=== PATIENT | female | born 2000 | race Caucasian/White ===

== ENCOUNTER 2021-04-29 20:37 | Emergency (ER) | payer OTHER, SELFPAY ==
--- OUTSIDE RECORDS SUMMARY | 2021-04-29 20:39 | XMS REPORT | Continuity of Care Document ---
:2000 Author Organization [facility] t Address [address] [place] [address] Care Team Providers Name Role Phone Unavailable Unavailable Unavailable Payers Payer Name Policy Type Policy Number Effective Date Expiration Date S ource Problems This patient has no known problems. Allergies, Adverse Reactions, Alerts Allergy Allergy Status Severity Reaction(s) Onset Inactive Treating Comm ents Source Name Type Date Date Clinician No Known DA Active U 2015-02 [facility] All[facility]ie 04-22 [facility] 00:00: d 00 [facility] Medications This patient has no known medications. Procedures This patient has no known procedures. Results Test Description Test Time Test Comments Results Result Comments Source HCG POC 2018-06-13 19:38:00 Test Item Value Reference Range Interpretation Comme nts HCG POC <5.0 0-4.9 N Results of (test IU/L 5.0-25.0 IU/L a re indeterminate and do not ruleout . Because code = HCG values doub le approximately every48 hours in a normal , HCGPOC) patients with l ow levels ofHCG should be resampled and retested after 48 hours toconf irm . 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 Comparison: None Findings: The heart and mediastinum are not remarkable. Costophrenic angles are clear. Lungs are clear. Bone is unremarkable for age. Impression: 1. No radiographic evidence of acute cardiopulmonary disease. at 1829 Reported and signed by: Daljit Parada MD CC: Silvana Anthony NP Technologist: MITZI PERRY Trnjessica Date/Time/By: 06/13/2018 (1828) : By: [email or web address] PAGE 1 Signed Report FAX: Silvana Anthony [phone] [place]: St: PRE Name: BRENNON MONTEMAYOR : 2000 Age/S: 17/F [address] Unit #: [id number] Loc: [place] [address] Phys: Mariah AnthonySilvana Maureen NP Acct: [id number] Dis Date: Status: PRE ER PHONE #: [phone] Exam Date: 06/13/2018 1818 FAX #: [phone] Reason: sob EXAMS: CPT CODE: [id number] XR CHEST 1 V 86537 <Continued> Orig Print D/T: S: 06/13/2018 (7502) PAGE 2 Signed Report- XR ANKLE 3 + V RT 2018-05-15 17:13:00 [place]: St: REG Name: BRENNON MONTEMAYOR : 2000 Age/S: 17/F [address] Unit#: [id number] Loc: [place] [address] Phys: Juan David Luong Acct: [id number] Dis Date: Status: REG ER PHONE #: [phone] Exam Date: 05/15/2018 1648 FAX #: [phone] Reason: rolled ankle, pain, lateral aspect EXAMS: CPT CODE: [id number] XR ANKLE 3 + V RT [address]690 CLINICAL INFORMATION: Injury accident. Rolled ankle. Pain.. Dictation location: J9 COMPARISON: No prior. FINDINGS: Frontal, lateral and mortise views show moderate soft tissue swelling about the lateral malleolus. There is no acute fracture, destructive lesion or foreign body. An os trigonum is incidentally noted. There is an endosteal sclerosis at the fibular aspect of the distal tibia mostlikely an ossifying fibrous cortical defect or fibroma. IMPRESSION: 1. Soft tissue swelling, no acute fracture. 2. Benign-appearing distal tibial bone lesion. at 5093 Reported and signed by: Umair Knight MD CC:Technologist: ANGELICA CABRAL Trnscrd Date/Time/By: 05/15/2018 (7702) : By: ShellyAGV PAGE 1 Signed Report [place]: St: REG Name: BRENNON MONTEMAYOR [facility] : 2000 Age/S: 17/F [address] Unit #: [id number] Loc: [place] [address] Phys: Juan David Luong Acct: [id number] Dis Date: Status: REG ER PHONE #: [phone] Exam Date: 05/15/2018 1648 FAX #: [phone] Reason: rolled ankle, pain, lateral aspect EXAMS: CPT CODE: [id number] XR ANKLE 3 + V RT 95565 <Continued> Orig Print D/T: S: 05/15/2018 (6555) PAGE 2 Signed Rep ort
[2021-04-29 21:07] LABS: Urine Blood 3+ (Negative); Urine Glucose Negative (Negative); Urine Protein Negative (Negative); Urine Specific Gravity >=1.030 (1.005-1.030)
[2021-04-29 21:32] LABS: Absolute Lymphocytes (CBC) 1.9 K/uL (0.7-4.9); Hematocrit 42.6 % (36.0-45.0); MPV 8.2 fL (7.6-11.3); RBC Red Blood Cell Count 5.14 M/uL (3.86-4.86)
--- NOTE | 2021-04-29 22:03 | RAD REPORT ---
EXAM DESCRIPTION: US - Transvaginal OB - 04/29/2021 9:56 pm CLINICAL HISTORY: VAGINAL BLEEDING COMPARISON: No comparisons FINDINGS: No gestational sac is evident. Endometrium is mildly thickened measuring 9 mm. The maternal adnexa and ovaries are within normal limits. Normal Doppler blood flow was demonstrated to both ovaries. IMPRESSION: Thickened endometrial stripe without gestational sac visualized. In the setting of posit sydney HCG level, this could represent a of unknown location/early findings of IUP. Recommend follow-up pelvic sonogram in 7-10 days and serial HCG measurements.
[2021-04-29 22:05] LABS: Urine Specific Gravity/Preg >1.030 (1.005-1.030)
[2021-04-29 22:09] LABS: BUN Blood Urea Nitrogen 10 mg/dL (7-18); Bicarbonate 28 mmol/L (21-32); Glucose Level 60 mg/dL (74-106); HCG, Quantitative 5418 mIU/mL (1-3); Potassium 3.4 mmol/L (3.5-5.1); Sodium Level 140 mmol/L (136-145)
--- NOTE | 2021-04-30 00:09 | ER ---
Nurse's Notes [facility] Name: Tankia Lawrence Age: 20 yrs Sex: Female : 2000 Arrival Date: 04/29/2021 Time: 20:42 Bed 5 Private MD: Diagnosis: Threatened Presentation: 04/29 20:47 Chief complaint: Patient states: "im having heavy bleeding and abdominal pain/cramps ab2 and I am , so I thought I should get checked out." Pt states today was her first apt and they confirmed but could not find baby via ultrasound so they weren't sure if she was too early or if it was an ectopic . Pt states bleeding started after her apt. Coronavirus screen: Vaccine status:. Coronavirus screen: Vaccine status: Patient reports receiving the 2nd dose of the covid vaccine. Client denies travel out of the [place] in the last 14 days. At this time, the client does not indicate any symptoms associated with coronavirus-19. Ebola Screen: Patient negative for fever greater than or equal to 101.5 degrees Fahrenheit, and additional compatible Ebola Virus Disease symptoms Patient denies exposure to infectious person. Patient denies travel to an Ebola-affected area in the 21 days before illness onset. No symptoms or risks identified at this time. Initial Sepsis Screen: Does the patient meet any 2 criteria? No. Patient's initial sepsis screen is negative. Does the patient have a suspected source of infection? No. Patient's initial sepsis screen is negative. Risk Assessment: Do you want to hurt yourself or someone else? Patient reports no desire to harm self or others. Onset of symptoms is unknown. 20:47 Method Of Arrival: Ambulatory ab2 20:47 Acuity: SILVIA 3 ab2 Triage Assessment: 20:53 General: Appears in no apparent distress. uncomfortable, Behavior is calm, cooperative, ab2 appropriate for age. Pain: Complains of pain in suprapubic area, right lower quadrant and left lower quadrant Pain radiates to back Quality of pain is described as crampy. : Reports vaginal bleeding that is bright red, with clots, heavy flow. 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 - Social history:: Smoking status: Patient denies any tobacco usage or history of. Screenin/08 00:23 Abuse screen: Denies threats or abuse. Nutritional screening: No deficits noted. al4 Tuberculosis screening: No symptoms or risk factors identified. Fall Risk No fall in past 12 months (0 pts). IV access (20 points). Ambulatory Aid- None/Bed Rest/Nurse Assist (0 pts). Gait- Normal/Bed Rest/Wheelchair (0 pts) Mental Status- Oriented to own ability (0 pts). Total Huynh Fall Scale indicates No Risk (0-24 pts). Assessment: 04/29 21:30 General: Appears in no apparent distress. comfortable, Behavior is calm, cooperative, al4 patient states she has been having vaginal bleeding and abdominal cramping . Pain: Complains of pain in abdomen. Neuro: Level of Consciousness is awake, alert, obeys commands, Oriented to person, place, time, situation. Cardiovascular: Capillary refill < 3 seconds Patient's skin is warm and dry. Respiratory: Airway is patent Respiratory effort is even, unlabored, Respiratory pattern is regular, symmetrical. Musculoskeletal: Range of motion: intact in all extremities. 22:00 Obstetrical Assessment: General assessment: awake and alert, skin warm and dry, al4 respirations even and unlabored, Patient reports Abdominal pain, back pain. 04/30 00:38 Reassessment: Discharge instructions, paper work, and follow up instructions given by alJohn Paul Garcia RN. Vital Signs: 04/29 20:47 BP 134 / 68; Pulse 82; Resp 16; Temp 98.8(TE); Pulse Ox 100% on R/A; Weight 52.16 kg; ab2 Height 5 ft. 1 in. (154.94 cm); Pain 3/10; 04/30 00:21 BP 114 / 71; Pulse 71; Resp 16; Pulse Ox 99% on R/A; al4 04/29 20:47 Body Mass Index 21.73 (52.16 kg, 154.94 cm) ab2 Vitals: 00:29 Heart Tones not applicable at this time. clarified with provider. al4 ED Course: 04/29 20:42 Patient arrived in ED. es 20:51 Triage completed. ab2 20:53 Arm band placed on right wrist. ab2 20:57 Ishaan Enciso NP is PHCP. pm1 20:57 Rob Khan MD is Attending Physician. pm1 21:18 Inserted saline lock: 20 gauge in right antecubital area, using aseptic technique. al4 Blood collected. 21:35 CBC with Diff Sent. al4 21:35 Basic Metabolic Panel Sent. al4 21:35 Abo/rh Typing Sent. al4 21:56 US Transvaginal Ob In Process Unspecified. EDMS 04/30 00:23 Bed in low position. Call light in reach. Side rails up X 1. al4 00:28 Kervin Thomas is Primary Nurse. al4 00:31 No provider procedures requiring assistance completed. al4 00:38 IV discontinued, intact, bleeding controlled, No redness/swelling at site. Pressure al4 dressing applied, by BASIM Garcia. Administered Medications: No medications were administered Point of Care Testing: Urine : 00:40 hCG Reading: Positive; Control Reading: Positive; al4 00:40 done by BASIM Garcia al4 Outcome: 00:08 Discharge ordered by . pm1 00:37 Discharged to home ambulatory. al4 00:37 Condition: stable 00:37 Discharge instructions given to patient, Instructed on discharge instructions, follow up and referral plans. Demonstrated understanding of instructions, follow-up care. 00:40 Patient left the ED. al4 Signatures: Dispatcher [employer] [facility] Brittani Adan Ishaan Enciso NP EXTRAS CASTING DIRECTOR pm1 Kervin Thomas al4 Kervin Mesa ab2 Corrections: (The following items were deleted from the chart) 04/29 20:53 20:47 Chief complaint: Patient states: "im having heavy bleeding and I am , so ab2 I thought I should get checked out." Pt states today was her first apt and they confirmed but could not find baby via ultrasound so they weren't sure if she was too early or if it was an ectopic . Pt states bleeding started after her apt. ab2 04/30 00:25 00:21 Pulse 71bpm; Resp 16bpm; Pulse Ox 99% RA; al4 al4 00:30 00:23 Fall Risk None identified. al4 al4 00:40 00:39 Urine : hCG=Positive, Control=Positive. al4 al4 00:49 03/07 21:30 General: Appears in no apparent distress. comfortable, Behavior is calm, al4 cooperative, al4
--- NOTE | 2021-04-30 00:09 | EDPHYS ---
Physician Documentation [facility] Name: Tanika Lawrence Age: 20 yrs Sex: Female : 2000 Arrival Date: 04/29/2021 Time: 20:42 Bed 5 Private MD: ED Physician Rob Khan HPI: 04/29 21:14 This 20 yrs old Female presents to ER via Ambulatory with complaints of Vaginal pm1 Bleeding, + Preg <12wks. 21:14 The patient presents to the emergency department with vaginal bleeding, that is light, pm1 reports using 0 pads or tampons per day. The estimated gestational age is 5 weeks. course: care: at a clinic, Ultrasound: the patient had an ultrasound, on April 29, 2021. Previous pregnancies: the patient has never been . Associated signs and symptoms: Pertinent positives: Abdominal cramping and right flank pain, Pertinent negatives: dysuria, fever. The patient has not experienced similar symptoms in the past. The patient has been recently seen by a physician: an floodplain manager specialist. Patient presents to the ER with complaints of light vaginal bleeding onset after ultrasound today at her first OB visit at the clinic. Patient reports right-sided pelvic cramping and right flank cramping with her vaginal bleeding. She reports that she might be 5 weeks in the ultrasound was unable to identify a IUP. 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 - Social history:: Smoking status: Patient denies any tobacco usage or history of. ROS: 21:14 Constitutional: Negative for fever, chills, and weight loss, Cardiovascular: Negative pm1 for chest pain, palpitations, and edema, Respiratory: Negative for shortness of breath, cough, wheezing, and pleuritic chest pain, Abdomen/GI: Negative for abdominal pain, nausea, vomiting, diarrhea, and constipation, Back: Negative for injury and pain, MS/Extremity: Negative for injury and deformity, Skin: Negative for injury, rash, and discoloration. 21:14 Neuro: Negative for headache, weakness, numbness, tingling, and seizure. 21:14 : Positive for vaginal bleeding, Negative for urinary symptoms. 21:14 All other systems are negative. Exam: 21:14 Constitutional: This is a well developed, well nourished patient who is awake, alert, pm1 and in no acute distress. Head/Face: Normocephalic, atraumatic. 21:14 Skin: Warm, dry with normal turgor. Normal color with no rashes, no lesions, and no evidence of cellulitis. MS/ Extremity: Pulses equal, no cyanosis. Neurovascular intact. Full, normal range of motion. 21:14 Eyes: Exam is negative for acute changes, Extraocular movements: no acute changes, Conjunctiva: no acute changes, no injection. 21:14 ENT: Exam is negative for acute changes, Mouth: no acute changes, Lips: normal, moist, Oral mucosa: normal, pink and intact, moist. 21:14 Cardiovascular: Exam negative for acute changes, Rate: normal, Rhythm: regular, Pulses: no pulse deficits are appreciated, Heart sounds: normal. 21:14 Respiratory: Exam negative for acute changes, respiratory distress, shortness of breath, Breath sounds: are clear throughout. 21:14 Abdomen/GI: Exam negative for acute changes, Inspection: abdomen appears normal, Palpation: abdomen is soft and non-tender, in all quadrants. 21:14 Back: Exam negative for acute changes, pain, is absent, CVA tenderness, is absent. 21:14 Neuro: Exam negative for acute changes, Orientation: is normal, Mentation: is normal, Motor: is normal, moves all fours. Vital Signs: 20:47 BP 134 / 68; Pulse 82; Resp 16; Temp 98.8(TE); Pulse Ox 100% on R/A; Weight 52.16 kg; ab2 Height 5 ft. 1 in. (154.94 cm); Pain 05/02; 04/30 00:21 BP 114 / 71; Pulse 71; Resp 16; Pulse Ox 99% on R/A; al4 04/29 20:47 Body Mass Index 21.73 (52.16 kg, 154.94 cm) ab2 MDM: 04/29 20:57 Patient medically screened. pm1 21:23 Data reviewed: vital signs. Data interpreted: Pulse oximetry: on room air is 100 %. pm1 Interpretation: normal. 23:29 Physician consultation: Eric Rivas MD was called at 23:17, was contacted at 23:29, pm1 regarding consult, patient's condition, Recommends discussion with the patient for two options: 1. administration of methotrexate or 2. repeat beta HCG and ultrasound on . Patient does not sound that she is in imminent danger of rupture based on physical examination, amount of bleeding, ultrasound reading without free fluid. 04/30 00:02 ED course: Discussed options presented by Dr. Rivas and the patient does not want to pm1 have methotrexate. She would like to get repeat beta HCG and ultrasound on as recommended by Dr. Rivas. Reexamined the patient and she is not having any current abdominal tenderness. 04/29 20:57 Order name: Abo/rh Typing; Complete Time: 23:10 pm1 04/29 20:57 Order name: Basic Metabolic Panel; Complete Time: 22:18 pm1 04/29 20:57 Order name: CBC with Diff; Complete Time: 22:18 pm1 04/29 20:57 Order name: Quantitative Hcg; Complete Time: 22:18 pm1 04/29 21:07 Order name: Urine Dipstick-Ancillary; Complete Time: 21:13 EDMS 04/29 21:08 Order name: Urine --Ancillary (enter results); Complete Time: 22:18 ds4 04/29 20:57 Order name: IV Saline Lock; Complete Time: 21:35 pm1 04/29 20:57 Order name: Labs collected and sent; Complete Time: 21:35 pm1 04/29 20:57 Order name: NPO; Complete Time: 22:48 pm1 04/29 20:57 Order name: Urine Dipstick-Ancillary (obtain specimen); Complete Time: 21:10 pm1 04/29 20:57 Order name: Urine Test (obtain specimen); Complete Time: 21:10 pm1 04/29 21:14 Order name: US Transvaginal Ob; Complete Time: 22:18 pm1 Administered Medications: No medications were administered Point of Care Testing: Urine : 00:40 hCG Reading: Positive; Control Reading: Positive; al4 00:40 done by BASIM Garcia al4 Disposition: 04:08 Co-signature as Attending Physician, Rob Khan MD I agree with the assessment and kdr plan of care. Disposition Summary: 04/30/21 00:08 Discharge Ordered Location: Home pm1 Problem: new pm1 Symptoms: have improved pm1 Condition: Stable pm1 Diagnosis - Threatened pm1 Followup: pm1 - With: Emergency Department - When: 48 Hours - Reason: Repeat Beta-HCG (48 Hours), Repeat ultrasound Discharge Instructions: - Discharge Summary Sheet pm1 - Threatened Miscarriage pm1 Forms: - Medication Reconciliation Form pm1 - Thank You Letter pm1 - Antibiotic Education pm1 - Family Work Release ds4 - Prescription Opioid Use pm1 Signatures: Dispatcher [employer] EDMS Rob Khan MD MD kdr Ishaan Enciso, LUPIS BODY FITTER pm1 Kervin Mesa ab2
[2021-04-30 01:14] VITALS: TEMP 98.8
[2021-04-30 01:16] VITALS: BP 114/71; O2SAT 99
== END 2021-04-30 00:40 | disposition home or self-care (01) ==
LOC: ER 20:37
DX: O20.0 Threatened abortion (principal); Z3A.01 Less than 8 weeks gestation of pregnancy
CPT/HCPCS: 36415; 76817; 80048; 81003; 81025; 84702; 85025; 86900; 86901; 99284

== ENCOUNTER 2021-11-06 06:29 | Emergency (ER) | payer OTHER ==
--- OUTSIDE RECORDS SUMMARY | 2021-11-06 06:33 | XMS REPORT | Continuity of Care Document ---
:2000 Author Organization [facility] t Address [address] [place] [address] Care Team Providers Name Role Phone LORI SIMMS Primary Care Physician Unavailable LORI SIMMS Attending Clinician Unavailable Lori Mooney Attending Clinician [phone] CRISPIN STEPHEN Attending Clinician Unavailable CRISPIN STEPHEN Attending Clinician Unavailable 1, [facility] Us Room Attending Clinician Unavailable Joey Silva MD Attending Clinician Rosalia Purdy APN Attending Clinician RIKA WARNER Attending Clinician Unavailable Risk, Luv-Ugrxf-Vi/High Attending Clinician Unavailable Rika Joshi Attending Clinician Payers Payer Name Policy Type Policy Number Effective Date Expiration Date S chucho [facility] [id number] 2021 00:00:00 Problems Condition Condition Condition Status Onset Resolution Last Treating Co mments Source Name Details Category Date Date Treatment Clinician Date Seizure Seizure Disease Active Univers disorder disorder 8-05 ity of during during 00:00: [place] 00 Medi vipin in second in second Bran ch trimester trimester GBS (group GBS (group Disease Active Overview : Univers B B 7-14 Formattin ity of streptococ streptococ 00:00: g of this [place] cus) UTI cus) UTI 00 note Medica l complicati complicati might be Branch ng ng different from the original. 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 Reports was being screened for a disorder, but no official dx about 5 months agoRecord s received pt was seen for easy bruising it was recommend ed that pt be evaluated for rheumatol ogical/au toimmune issues History of History of Disease Active Overview : Univers seizure seizure 09-02 Formattin ity o f 00:00: g of this [place] 00 note Medical might be Branch different from the original. Reports last episode was 2years ago Tobacco Tobacco Disease Active Overview: Univ ers use in use in 09-02 Formattin ity of 00:00: g of this [place] 00 note Medical might be Branch different from the original. Reports quit Months ago Allergies, Adverse Reactions, Alerts Allergy Allergy Status Severity Reaction(s) Onset Inactive Treating Comm ents Source Name Type Date Date Clinician No Known DA Active U 2015-02 [facility] Allergie 2-28 [facility] d [facility] NO KNOWN Drug Active Univers ALLERGIE Class ity of S [facility] Social History Social Habit Start Date Stop Date Quantity Comments Source ASSERTION 2021-08-09 University of 00:00:00 [facility] Branch History of Cigarette Smoker Universi ty of tobacco use [facility] Exposure to 2021-10-25 2021-11-04 Not sure University of SARS-CoV-2 00:00:00 13:09:00 [facility] ([facility] Branch Alcohol intake 2021-11-04 2021-11-04 Lifetime University of 00:00:00 00:00:00 non-drinker [place] Medical (finding) Branch Tobacco use and 2021-09-02 2021-09-02 Smokeless tobacco Un iversity of exposure 00:00:00 00:00:00 non-user [facility] Sex Assigned At [birth year] Universit y of 00:00:00 00:00:00 [facility] Smoking Status Start Date Stop Date Source Ex-smoker 2021-09-02 00:00:00 2021-09-02 [facility] Medications Ordered Filled Start Stop Current Ordering Indication Dosage Frequency Signature Comments Components Source Medication Medication Date Date Medication? Clinician (SIG) Name Name montelukast 2021- Yes [id number] 10mg Take 1 Univers 10 mg 10-24 103 tablet by ity of tablet 00:00: 05:59 mouth [place] 00 :00 every Medical evening Branch for 90 days. montelukast 2021- Yes [id number] 10mg Take 1 Univers 10 mg 10-24 103 tablet by ity of tablet 00:00: 05:59 mouth [place] 00 :00 every Medical evening Branch for 90 days. montelukast 2021- Yes [id number] 10mg Take 1 Univers 10 mg 10-24 103 tablet by ity of tablet 00:00: 05:59 mouth [place] 00 :00 every Medical evening Branch for 90 days. montelukast 2021- Yes [id number] 10mg Take 1 Univers 10 mg 10-24 103 tablet by ity of tablet 00:00: 05:59 mouth [place] 00 :00 every Medical evening Branch for 90 days. montelukast 2021- Yes [id number] 10mg Take 1 Univers 10 mg 10-24 103 tablet by ity of tablet 00:00: 05:59 mouth [place] 00 :00 every Medical evening Branch for 90 days. PNV 67-iron Yes [id number] 1{each} Take 1 Univers ps-folate 8-26 Each by ity of no.1-dha 00:00: mouth [place] (VITAFOL 00 daily. Medical ULTRA) 29 Branch mg iron- 1 mg-200 mg Cap PNV 67-iron 2021-0 Yes [id number] 1{each} Take 1 Univers ps-folate 8-26 Each by ity of no.1-dha 00:00: mouth [place] (VITAFOL 00 daily. Medical ULTRA) 29 Branch mg iron- 1 mg-200 mg Cap PNV 67-iron 2021-0 Yes [id number] 1{each} Take 1 Univers ps-folate 8-26 Each by ity of no.1-dha 00:00: mouth [place] (VITAFOL 00 daily. Medical ULTRA) 29 Branch mg iron- 1 mg-200 mg Cap PNV 67-iron 2021-0 Yes [id number] 1{each} Take 1 Univers ps-folate 8-26 Each by ity of no.1-dha 00:00: mouth [place] (VITAFOL 00 daily. Medical ULTRA) 29 Branch mg iron- 1 mg-200 mg Cap PNV 67-iron 2021-0 Yes [id number] 1{each} Take 1 Univers ps-folate 8-26 Each by ity of no.1-dha 00:00: mouth [place] (VITAFOL 00 daily. Medical ULTRA) 29 Branch mg iron- 1 mg-200 mg Cap PNV 67-iron 2021-0 Yes [id number] 1{each} Take 1 Univers ps-folate 8-26 Each by ity of no.1-dha 00:00: mouth [place] (VITAFOL 00 daily. Medical ULTRA) 29 Branch mg iron- 1 mg-200 mg Cap Budesonide 2021-0 Yes [id number] 1{puff} Inhale 1 Univers 90 8-08 103 Puff in ity of mcg/actuati 00:00: the [place] on aerosol 00 morning Medica l powder and 1 Puff Branch in the evening. Budesonide 2021-0 Yes [id number] 1{puff} Inhale 1 Univers 90 8-08 103 Puff in ity of mcg/actuati 00:00: the [place] on aerosol 00 morning Medica l powder and 1 Puff Branch in the evening. Budesonide 2021-0 Yes [id number] 1{puff} Inhale 1 Univers 90 8-08 103 Puff in ity of mcg/actuati 00:00: the [place] on aerosol 00 morning Medica l powder and 1 Puff Branch in the evening. Budesonide Yes [id number] 1{puff} Inhale 1 Univers 90 8-08 103 Puff in ity of mcg/actuati 00:00: the [place] on aerosol 00 morning Medica l powder and 1 Puff Branch in the evening. Budesonide Yes [id number] 1{puff} Inhale 1 Univers 90 8-08 103 Puff in ity of mcg/actuati 00:00: the [place] on aerosol 00 morning Medica l powder and 1 Puff Branch in the evening. Budesonide Yes [id number] 1{puff} Inhale 1 Univers 90 8-08 103 Puff in ity of mcg/actuati 00:00: the [place] on aerosol 00 morning Medica l powder and 1 Puff Branch in the evening. Yes Take by [employer] s vit 7-11 mouth. ity of no.124/iron 15:57: [place] /folic 30 Medical ( Branch VITAMIN ORAL) Yes Take by [employer] s vit 7-11 mouth. ity of no.124/iron 15:57: [place] /folic 30 Medical ( Branch VITAMIN ORAL) Yes Take by [employer] s vit 7-11 mouth. ity of no.124/iron 15:57: [place] /folic 30 Medical ( Branch VITAMIN ORAL) Yes Take by [employer] s vit 7-11 mouth. ity of no.124/iron 15:57: [place] /folic 30 Medical ( Branch VITAMIN ORAL) Yes Take by [employer] s vit 7-11 mouth. ity of no.124/iron 15:57: [place] /folic 30 Medical ( Branch VITAMIN ORAL) Yes Take by [employer] s vit 7-11 mouth. ity of no.124/iron 15:57: [place] /folic 30 Medical ( Branch VITAMIN ORAL) Vital Signs Vital Name Observation Time Observation Value Comments Source Systolic blood 2021-11-04 18:16:00 119 mm[Hg] Taty sity of pressure [facility] Diastolic blood 2021-11-04 18:16:00 67 mm[Hg] Unive rsity of pressure [facility] Heart rate 2021-11-04 18:16:00 82 /min [facility] [place] [facility] Body temperature 2021-11-04 18:16:00 36.89 Marycruz Univ ersity of [place] [facility] Respiratory rate 2021-11-04 18:16:00 18 /min Univ ersity of [place] [facility] [place] Body height 2021-11-04 18:16:00 157.5 cm [facility] ty [facility] [place] [facility] [place] Body weight 2021-11-04 18:16:00 56.246 kg [facility] [place] [facility] BMI 2021-11-04 18:16:00 22.68 kg/m2 [facility] [place] [facility] Systolic blood 2021-10-24 20:30:00 105 mm[Hg] Univer sity of pressure [facility] Diastolic blood 2021-10-24 20:30:00 69 mm[Hg] Unive rsity of [facility] Heart rate 2021-10-24 20:30:00 81 /min Universi ty of [facility] Body temperature 2021-10-24 20:30:00 37.22 Marycruz [facility] Respiratory rate 2021-10-24 20:30:00 18 /min Univ ersity of [facility] Body height 2021-10-24 20:30:00 157.5 cm [facility] ty [facility] [place] [facility] [place] [place] Body weight 2021-10-24 20:30:00 55.747 kg [facility]i ty [facility] [place] [facility] [place] BMI 2021-10-24 20:30:00 22.48 kg/m2 Universi ty of [facility] Procedures Procedure Date / Time Performed Performing Clinician Sourc e POCT URINALYSIS 2021-11-04 18:17:[address] [facility] POCT URINALYSIS 2021-10-24 21:13:[address] [facility] Encounters Start End Encounter Admission Attending Care Care Encounter Source Date/Time Date/Time Type Type Clinicians Facility Department ID 2021-12-13 2021-12-13 Outpatient R [facility] [id number] Univers 13:00:00 13:00:00 [id number] ity of [facility] 2021-12-13 2021-12-13 Outpatient P [facility] [id number] Univers 13:00:00 13:00:[address] [facility] 2021-12-02 2021-12-02 [id number] Univers 11:00:00 11:00:00 LORI [id number] ity o [facility] 2021-11-04 2021-11-04 Outpatient R DEMI, [facility] [id number] Univers 12:45:00 13:34:38 LORI ity o f [facility] 2021-11-04 2021-11-04 Routine Иванfaby, [facility] [id number] Univers 12:45:00 13:34:38 Lori C PAINT TESTER [id number] ity of Visit REGIONAL [id number] Jose as MATERNAL [id number] [facility] ical & CHILD [address] [place] [address] 2021-10-29 2021-10-29 Abstract Demi [facility] [id number] Univers 00:00:00 00:00:00 Lori Brizuela PAINT TESTER [id number] ity of REGIONAL 4.2.7.2.686 Jose as MATERNAL [phone] [facility] [address] [place] [address] 2021-10-25 2021-10-25 Outpatient R [facility] [id number] Univers 15:00:00 15:00:00 [id number] [facility] 2021-10-25 2021-10-25 Outpatient R CRISPIN STEPHEN [facility] [id number] Univers 15:00:00 15:00:00 CRISPIN STEPHEN [facility] 2021-10-25 2021-10-25 [facility]rentice [facility] 1.2. [id number] Univers 14:00:00 14:45:00 Visit Joey Silva PAINT TESTER [id number] 0 ity of REGIONAL [id number] Jose as MATERNAL [id number] [facility] ical & CHILD [address] [place] [address] 2021-10-25 2021-10-25 Basim Purdy [facility] [id number] Univers 00:00:00 00:00:00 Management Rosalia PAINT TESTER [id number] ity of REGIONAL [id number] Jose as MATERNAL [phone] [facility] ical & CHILD 124 [facility] 2021-10-24 2021-10-24 Outpatient R STELLA [facility] [id number] Univers 15:15:00 16:00:28 RIKA [facility] 2021-10-24 2021-10-24 Routine Risk, Kyl-Mcwvs-Ov/High [facility] 1. [id number] [id number] Univers 15:15:00 16:00:28 Rika Warner PAINT TESTER [id number] ity of Visit REGIONAL 4.2.7.2.686 Jose as MATERNAL [id number] [address] 2021-10-24 2021-10-24 Outpatient R [facility] [id number] Univers 15:15:00 15:15:00 [id number] [facility] 2021-10-17 2021-10-17 [facility] [id number] Univers 00:00:00 00:00:00 Lori Brizuela PAINT TESTER [id number] ity of [facility] [id number] Jose as MATERNAL [id number] [facility] & [address] Results Test Description Test Time Test Comments Results Result Comments Source POCT URINALYSIS W SPECIFIC GRAVITY 2021-11-04 18:17:00 Test Item Value Reference Range Interpretation Comme nts POCT U SP GRAV (test code = 3255) . 1.005-1.025 POCT PH U (test code = 3254) . 5-8 POCT U LEUK EST (test code = 3263) . Negative - Negative POCT U NIT (test code = 3262) . Negative - Negative POCT U PROT (test code = 3259) Trace Negative - Negative POCT U GLU (test code = 3256) Neg Negative - Negative POCT U KETONE (test code = 3258) . Negative - Negative POCT U UROBILI (test code = 3260) . 0.2-1 POCT U BILI (test code = 3261) . Negative - Negative POCT U BLD (test code = 3257) . Negative - Negative POCT U COLOR (test code = 3266) . POCT U APPEAR (test code = 3267) [facility] [id number] 21:13:00 Test Item Value Reference Range Interpretation Comments POCT U SP GRAV (test code = 3255) . 1.005-1.025 POCT PH U (test code = 3254) . 5-8 POCT U LEUK EST (test code = 3263) . Negative - Negative POCT U NIT (test code = 3262) . Negative - Negative POCT U PROT (test code = 3259) trace Negative - Negative POCT U GLU (test code = 3256) neg Negative - Negative POCT U KETONE (test code = 3258) . Negative - Negative POCT U UROBILI (test code = 3260) . 0.2-1 POCT U BILI (test code = 3261) . Negative - Negative POCT U BLD (test code = 3257) . Negative - Negative POCT U COLOR (test code = 3266) . POCT U APPEAR (test code = 3267) . [facility] [id number] 19:38:00 Test Item Value Reference Range Interpretation Comments HCG POC (test code <5.0 IU/L 0-4.9 N = HCGPOC) Result s of 5.0-25.0 IU/L a re indeterminate a nd do not ruleout pregnan cy. Because HCG values doub le approximately e very48 hours in a norm al , adalgisa ents with low levels ofHC G should be resampled and r etested after 48 hours toconfirm . 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 Comparison: None Findings: The heart and mediastinum are not remarkable. Costophrenic anglesare clear. Lungs are clear. Bone is unremarkable for age. Impression: 1. No radiographic evidence of acute cardiopulmonary disease. at 1829 Reported and signed by: Daljit Parada MD CC: Silvana Anthony NP Technologist: MITZI PERRY Date/Time/By: 06/13/2018 (1828) : By: [email or web address] PAGE 1 Signed Report FAX: Silvana Anthony [phone] [place]: St: PRE Name: BRENNON MONTEMAYOR [facility] : 2000 Age/S: 17/F [address] Unit #: [id number] Loc: [place] [address] Phys: AnthonySilvana LUPIS Acct: [id number] Dis Date: Status: PRE ER PHONE #: [phone] Exam Date: 06/13/2018 1818 FAX #: [phone] Reason: sob EXAMS: CPT CODE: [id number] XR CHEST 1 V [id number] (Continued) Orig Print D/T: S: 06/13/2018 (1832) PAGE 2 Signed Report- XR ANKLE 3 + V [id number] 17:13:00 [place]: St: REG -- Name: BRENNON MONTEMAYOR [facility] : 2000 Age/S: 17/F [address] Unit #: [id number] Loc: [place] [address] Phys: Juan David Luong Acct: [id number] Dis Date: Status: REG ER PHONE #: [phone] Exam Date: 05/15/2018 1648 FAX #: [phone] Reason: rolled ankle, pain, lateral aspect EXAMS: CPT CODE: [id number] XR ANKLE 3 + V RT [id number] CLINICAL INFORMATION: Injury accident. Rolled ankle. Pain.. Dictation location: J9 COMPARISON: No prior. FINDINGS: Frontal, lateral and mortise viewsshow moderate soft tissue swelling about the lateral malleolus. There is no acute fracture, destructive lesion or foreign body. An os trigonum is incidentally noted. There is an endosteal sclerosis at the fibular aspect of the distal tibia most likely an ossifying fibrous cortical defect or fibroma. IMPRESSION: 1. Soft tissue swelling, no acute fracture. 2. Benign-appearing distal tibial bone lesion. at 1713 Reported and signed by: Umair Knight MD CC: Technologist: ANGELICA CABRAL Trnscrd Date/Time/By: 05/15/2018 (7820) : By: ShellyAGV PAGE 1 Signed Report [place]: St: REG Name: BRENNON MONTEMAYOR [facility] : 2000 Age/S: 17/F [address] Unit #: [id number] Loc: [place] [address] Phys: Juan David Luong Acct: [id number] Dis Date: Status: REG ER PHONE #: [phone] Exam Date: 05/15/2018 1641 FAX #: [phone] Reason: rolled ankle, pain, lateral aspect EXAMS: CPT CODE: [id number] XR ANKLE 3 + V RT [id number] (Continued) Orig Print D/T: S: 05/15/2018 (6473) PAGE 2 Signed Report
[2021-11-06] MEDS ORDERED: MORPHINE 2 MG/ML SYR ONE (07:38)
[2021-11-06] MEDS ORDERED: FAMOTIDINE 20 MG/2 ML VIAL IV ONE (07:39)
[2021-11-06 07:55] LABS: Urine Blood Negative (Negative); Urine Glucose Negative (Negative); Urine Protein Negative (Negative); Urine Specific Gravity 1.025 (1.005-1.030)
--- NOTE | 2021-11-06 07:56 | RAD REPORT ---
EXAM DESCRIPTION: US - Abdomen Exam Limited - 11/06/2021 7:42 am CLINICAL HISTORY: rule out cholecystitis COMPARISON: No comparisons FINDINGS: No gallstones, sludge or other abnormalities within the gallbladder lumen. There is no wal l thickening or pericholecystic fluid. No common duct stone or biliary tree dilatation identified. IMPRESSION: Normal gallbladder and biliary tree ultrasound.
--- NOTE | 2021-11-06 07:58 | RAD REPORT ---
EXAM DESCRIPTION: US - OB Limited - 11/06/2021 7:42 am CLINICAL HISTORY: ABD CRAMPING, COMPARISON: OB Limited dated 09/07/2021; Abdomen Exam Limited dated 11/06/2021 FINDINGS: Limited Ob ultrasound shows a single intrauterine gestation. Body and limb movements were observed. Heart rate is 147 BPM. Single femoral length measurement was obtained with estimated 15 wee k 2 day age. This closely approximates the LMP based age. Cervical canal is long and closed. Amniotic fluid volume is normal. Posterior positioned placenta shows no suspicious finding. IMPRESSION: Approximately 15 week single gestation with no significant or suspicious findings noted.
[2021-11-06 08:01] LABS: Absolute Lymphocytes (CBC) 1.7 K/uL (0.7-4.9); Hematocrit 35.2 % (36.0-45.0); Lymphocytes % 24.5 % (15.3-44.8); MCV 83.5 fL (80-100); MPV 8.4 fL (7.6-11.3); RBC Red Blood Cell Count 4.21 M/uL (3.86-4.86)
[2021-11-06 08:08] LABS: Albumin 2.8 g/dL (3.4-5.0); Bilirubin Total 0.2 mg/dL (0.2-1.0); Potassium 4.2 mmol/L (3.5-5.1); Protein, Total 6.2 g/dL (6.4-8.2)
[2021-11-06 08:13] LABS: Urine Mucus Slight /HPF (None Seen); Urine RBC <5 /HPF (None Seen)
--- NOTE | 2021-11-06 08:56 | ER ---
Nurse's Notes [facility] Name: Tanika Lawrence Age: 21 yrs Sex: Female : 2000 Arrival Date: 11/06/2021 Time: 06:33 Bed 8 Private MD: Diagnosis: Upper abdominal pain, unspecified;15 weeks gestation of Presentation: 11/06 07:05 Chief complaint: Patient states: Epigastric pain that began this morning around 0400. vg1 Pt states is approximately 15 weeks . Denies NVD; last BM was last night and "normal". Coronavirus screen: Vaccine status: Patient reports receiving the 2nd dose of the covid vaccine. Client denies travel out of the [place] in the last 14 days. Ebola Screen: Patient denies exposure to infectious person. Patient denies travel to an Ebola-affected area in the 21 days before illness onset. Initial Sepsis Screen: Does the patient meet any 2 criteria? No. Patient's initial sepsis screen is negative. Does the patient have a suspected source of infection? No. Patient's initial sepsis screen is negative. Risk Assessment: Do you want to hurt yourself or someone else? Patient reports no desire to harm self or others. Onset of symptoms was November 06, 2021. 07:05 Method Of Arrival: Ambulatory vg1 07:05 Acuity: SILVIA 3 vg1 Triage Assessment: 07:06 General: Appears in no apparent distress. uncomfortable, Behavior is. Pain: Complains vg1 of pain in epigastric area. GI: Abdomen is flat, Last BM was November 05, 2021. Patient currently denies diarrhea, nausea, vomiting. 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 - Social history:: Smoking status: Patient denies any tobacco usage or history of. - Family history:: not pertinent. - Hospitalizations: : No recent hospitalization is reported. Screenin:32 Abuse screen: Denies threats or abuse. Nutritional screening: No deficits noted. tw2 Tuberculosis screening: No symptoms or risk factors identified. Fall Risk None identified. Assessment: 07:32 Reassessment: US at bedside at this time. tw2 08:05 Reassessment: Patient appears in no apparent distress at this time. No changes from tw2 previously documented assessment. Patient and/or family updated on plan of care and expected duration. Pain level reassessed. Patient is alert, oriented x 3, equal unlabored respirations, skin warm/dry/pink. 08:41 Reassessment: Patient appears in no apparent distress at this time. Patient and/or tw2 family updated on plan of care and expected duration. Pain level reassessed. Patient is alert, oriented x 3, equal unlabored respirations, skin warm/dry/pink. provider notified. Patient states symptoms have not improved. 09:10 Reassessment: Patient appears in no apparent distress at this time. No changes from tw2 previously documented assessment. Patient and/or family updated on plan of care and expected duration. Pain level reassessed. Patient is alert, oriented x 3, equal unlabored respirations, skin warm/dry/pink. 09:38 GI: na na. tw2 Vital Signs: 07:05 BP 119 / 80; Pulse 77; Resp 16; Temp 98.8(TE); Pulse Ox 100% on R/A; Weight 55.79 kg; vg1 Height 4 ft. 11 in. (149.86 cm); Pain 6/10; 08:05 BP 121 / 72; Pulse 55; Resp 17; Pulse Ox 100% on R/A; tw2 08:41 Pain 7/10; tw2 09:10 BP 118 / 82; Pulse 83; Resp 17; Pulse Ox 100% on R/A; tw2 07:05 Body Mass Index 24.84 (55.79 kg, 149.86 cm) vg1 ED Course: 06:33 Patient arrived in ED. ja2 07:00 Robbie Scott MD is Attending Physician. rn 07:06 Triage completed. vg1 07:06 Arm band placed on. vg1 07:09 Wilma Esteves, BASIM is Primary Nurse. tw2 07:09 Bed in low position. Call light in reach. Pulse ox on. NIBP on. tw2 07:44 Abdomen Limited US In Process Unspecified. EDMS 07:44 US OB Limited In Process Unspecified. EDMS 07:45 Inserted saline lock: 20 gauge in right antecubital area, using aseptic technique. tw2 Blood collected. 09:38 No provider procedures requiring assistance completed. IV discontinued, intact, tw2 bleeding controlled, No redness/swelling at site. Pressure dressing applied. Administered Medications: 07:45 Drug: Pepcid (famotidine) 20 mg Route: IVP; Site: right antecubital; tw2 08:41 Follow up: Pain 7/10 Adult; Response: No adverse reaction; No change in condition; Pain tw2 is unchanged, physician notified 07:48 Not Given (Patient Refused; provider notified.): morphine 2 mg IVP once over 4 mins tw2 09:09 Drug: GI Cocktail without - (Maalox Suspension 30 ml, Lidocaine Liquid 2 % 15 tw2 ml) Route: PO; 09:10 Follow up: Response: No adverse reaction tw2 Medication: 07:33 VIS not applicable for this client. tw2 Outcome: 08:56 Discharge ordered by . rn 09:38 Discharged to home ambulatory. tw2 09:38 Condition: stable 09:38 Discharge instructions given to patient, Instructed on discharge instructions, follow up and referral plans. Demonstrated understanding of instructions, follow-up care. 09:38 Patient left the ED. tw2 Signatures: Dispatcher [employer] EDMS Robbie Scott MD MD rn Wise, Tara RN RN tw2 Victoria Montenegro RN RN 1 Sheela Lopez
--- NOTE | 2021-11-06 08:57 | EDPHYS ---
Physician Documentation [facility] Name: Tanika Lawrence Age: 21 yrs Sex: Female : 2000 Arrival Date: 11/06/2021 Time: 06:33 Bed 8 Private MD: ED Physician Robbie Scott HPI: 11/06 07:26 This 21 yrs old Female presents to ER via Ambulatory with complaints of Abdominal Pain. rn 07:26 The patient presents with abdominal pain in the epigastric area. Onset: The rn symptoms/episode began/occurred this morning. The symptoms do not radiate. Associated signs and symptoms: Pertinent negatives: nausea and vomiting, blood in stools, chest pain, fever, hematuria, shortness of breath, vaginal discharge. The symptoms are described as achy. Modifying factors: The symptoms are alleviated by nothing, the symptoms are aggravated by movement, touching the area. Severity of pain: At its worst the pain was moderate in the emergency department the pain is unchanged. The patient has not experienced similar symptoms in the past. The patient has not recently seen a physician. Pt reports upper abd pain that began this morning, is 15 weeks , no fever/chest pain/sob/vomiting. Never had this before. No vaginal bleeding or discharge. No trauma. . 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 - Social history:: Smoking status: Patient denies any tobacco usage or history of. - Family history:: not pertinent. - Hospitalizations: : No recent hospitalization is reported. ROS: 07:26 Constitutional: Negative for fever, chills, and weight loss, Eyes: Negative for injury, rn pain, redness, and discharge, Neck: Negative for injury, pain, and swelling, Cardiovascular: Negative for chest pain, palpitations, and edema, Respiratory: Negative for shortness of breath, cough, wheezing, and pleuritic chest pain, Abdomen/GI: + abd pain Back: Negative for injury and pain, : Negative for injury, bleeding, discharge, and swelling, MS/Extremity: Negative for injury and deformity, Skin: Negative for injury, rash, and discoloration, Neuro: Negative for headache, weakness, numbness, tingling, and seizure. Exam: 07:26 Constitutional: This is a well developed, well nourished patient who is awake, alert, rn and in no acute distress. Head/Face: Normocephalic, atraumatic. Eyes: Periorbital areas with no swelling, redness, or edema. Cardiovascular: Regular rate and rhythm. No pulse deficits. Respiratory: No increased work of breathing, no retractions or nasal flaring. Abdomen/GI: soft, + epigastric tenderness, no rebound, neg barreto Vital Signs: 07:05 BP 119 / 80; Pulse 77; Resp 16; Temp 98.8(TE); Pulse Ox 100% on R/A; Weight 55.79 kg; vg1 Height 4 ft. 11 in. (149.86 cm); Pain 6/10; 08:05 BP 121 / 72; Pulse 55; Resp 17; Pulse Ox 100% on R/A; tw2 08:41 Pain 7/10; tw2 09:10 BP 118 / 82; Pulse 83; Resp 17; Pulse Ox 100% on R/A; tw2 07:05 Body Mass Index 24.84 (55.79 kg, 149.86 cm) vg1 MDM: 07:00 Patient medically screened. rn 08:55 Differential diagnosis: cholecystitis, Cholelithiasis, gastritis, gastroesophageal rn reflux disease, non-specific abd pain, pancreatitis, Peptic Ulcer Disease. Data reviewed: vital signs, nurses notes, lab test result(s), radiologic studies, ultrasound, and as a result, I will discharge patient. Counseling: I had a detailed discussion with the patient and/or guardian regarding: the historical points, exam findings, and any diagnostic results supporting the discharge/admit diagnosis, lab results, radiology results, the need for outpatient follow up, to return to the emergency department if symptoms worsen or persist or if there are any questions or concerns that arise at home. Response to treatment: the patient's symptoms have mildly improved after treatment, and as a result, I will discharge patient. Special discussion: Based on the patient's Hx, exam, and Dx evaluation, there is no indication for emergent surgery or inpatient Tx. It is understood by the patient/guardian that if the Sx's persist or worsen they need to return immediately for re-evaluation. I discussed with the patient/guardian in detail that at this point there is no indication for admission to the hospital. It is understood, however, that if the symptoms persist or worsen the patient needs to return immediately for re-evaluation. Based on the history and exam findings, there is no indication for further emergent testing or inpatient evaluation. I discussed with the patient/guardian the need to see the pre coder for further evaluation of the symptoms. I discussed with the patient/guardian the need to see the OB Gyne specialist for further evaluation of the symptoms. 11/06 07:18 Order name: CBC with Diff; Complete Time: 08:08 rn 11/06 07:18 Order name: CMP; Complete Time: 08:19 rn 11/06 07:18 Order name: Lipase; Complete Time: 08:19 rn 11/06 07:18 Order name: Urine Microscopic Only; Complete Time: 08:19 rn 11/06 07:18 Order name: Abdomen Limited US; Complete Time: 08:08 rn 11/06 07:55 Order name: Urine Dipstick-Ancillary; Complete Time: 08:08 EDMS 11/06 07:18 Order name: IV Saline Lock; Complete Time: 07:48 rn 11/06 07:18 Order name: Labs collected and sent; Complete Time: 07:48 rn 11/06 07:18 Order name: Urine Dipstick-Ancillary (obtain specimen); Complete Time: 07:55 rn 11/06 07:18 Order name: US OB Limited; Complete Time: 08:08 rn Administered Medications: 07:45 Drug: Pepcid (famotidine) 20 mg Route: IVP; Site: right antecubital; tw2 08:41 Follow up: Pain 7/10 Adult; Response: No adverse reaction; No change in condition; Pain tw2 is unchanged, physician notified 07:48 Not Given (Patient Refused; provider notified.): morphine 2 mg IVP once over 4 mins tw2 09:09 Drug: GI Cocktail without - (Maalox Suspension 30 ml, Lidocaine Liquid 2 % 15 tw2 ml) Route: PO; 09:10 Follow up: Response: No adverse reaction tw2 Disposition Summary: 11/06/21 08:56 Discharge Ordered Location: Home rn Problem: new rn Symptoms: have improved rn Condition: Stable rn Diagnosis - Upper abdominal pain, unspecified rn - 15 weeks gestation of rn Followup: rn - With: Private Physician - When: As needed - Reason: Recheck today's complaints, Re-evaluation by your physician Discharge Instructions: - Discharge Summary Sheet rn - Abdominal Pain, Adult rn - Abdominal Pain During rn Forms: - Medication Reconciliation Form rn - Thank You Letter rn - Antibiotic rn med surg - Prescription Opioid Use rn - Work release form tw2 Signatures: Dispatcher [employer] Robbie Azul MD MD rn Wise, Tara, RN RN tw2 Victoria Montenegro RN RN vg1
[2021-11-06] MEDS ORDERED: MAGNES/ALUMIN/SIMET 30ML UCUP ONE (09:08)
[2021-11-06] MEDS ORDERED: LIDOCAINE VISCOUS 2% SOLN 15 ML UDC ONE (09:08)
[2021-11-07 00:23] VITALS: TEMP 98.8; O2SAT 100
[2021-11-07 00:35] VITALS: BP 118/82
== END 2021-11-06 09:38 | disposition home or self-care (01) ==
LOC: ER 06:29
DX: O26.892 Other specified pregnancy related conditions, second trimester (principal); O99.512 Diseases of the respiratory system complicating pregnancy, second trimester; J45.909 Unspecified asthma, uncomplicated; Z3A.15 15 weeks gestation of pregnancy
CPT/HCPCS: 85025; 36415; 83690; 80053; 76705; 76815; 96374; 99284; J2270; 81003; 81015

== ENCOUNTER 2022-05-03 17:06 | Emergency (ER) | payer OTHER ==
--- OUTSIDE RECORDS SUMMARY | 2022-05-03 17:16 | XMS REPORT | Continuity of Care Document ---
:2000 Author Organization [facility] t Address [address] [facility] [address] [place] [id number] Care Team Providers Name Role Phone Lian Mooney Primary Care Physician [phone] LIAN SIMMS Attending Clinician Unavailable Visit, Donte Nurse Attending Clinician Unavailable Lian Mooney Attending Clinician [phone] Chip Archuleta DO Attending Clinician LEROY LORENZANA Attending Clinician Unavailable Emilee Villarreal MD Attending Clinician [phone] Colby AMBROSE, Daquan Attending Clinician Ronen Presley MD Attending Clinician Malcolm STALLWORTH, Jose Cruz Camacho Attending Clinician Unavailable Provider, Donte Temp Attending Clinician Unavailable MADHURI OROZCO Attending Clinician Unavailable Madhuri Orozco MD Attending Clinician LIZETT WEI Attending Clinician Unavailable Lizett Wei MD Attending Clinician Astrid Barnett CNM Attending Clinician ASTRID BARNETT Attending Clinician Unavailable Ultrasound, [facility] Attending Clinician Unavailable Josesito Carrillo MD Attending Clinician JOSESITO CARRILLO Attending Clinician Unavailable JOSESITO CARRILLO Attending Clinician Unavailable Doctor Unassigned, [place] Attending Clinician Unavailable Lab, [facility] Attending Clinician Unavailable Crispin Campbell Attending Clinician CRISPIN SON Attending Clinician Unavailable 1, [facility] Attending Clinician Unavailable Ricardo AMBROSE, Joey Simmons Attending Clinician Rosalia Purdy APN Attending Clinician JOHNNY WARNER Attending Clinician Unavailable Risk, Mmq-Xdqyx-Wq/High Attending Clinician Unavailable Timmy WHJohnny RAWLS Attending Clinician Faculty, [facility] Attending Clinician Unavailable Vicki Gardner RN Attending Clinician Unavailable Lester Breen RN, Martha Attending Clinician Unavailable LIZETT WEI Admitting Clinician Unavailable Chip Archuleta DO Admitting Clinician MADHURI OROZCO Admitting Clinician Unavailable Madhuri Orozco MD Admitting Clinician Lizett Wei MD Admitting Clinician Payers Payer Name Policy Type Policy Number Effective Date Expiration Date [facility] STAR [id number] 2021 00:00:00 MEDICAID PENDING PENDING 2021 00:00:00 Problems Condition Condition Condition Status Onset Resolution Last Treating Co mments Source Name Details Category Date Date Treatment Clinician Date 38 weeks 38 weeks Disease Active Unive rs gestation gestation 3 ity of of of 00:00: [place] 00 Medi [facility] Branch Disease Active Univers growth growth 3 ity of restrictio restrictio 00:[place] 00 Medical antepartum antepartum Br anch Elevated Elevated Disease Active Unive rs blood blood 3 ity of pressure pressure 00:00: [place] affecting affecting 00 Medi vipin Bran ch in third in third trimester, trimester, antepartum antepartum Positive Positive Disease Active Unive rs GBS test GBS test 2-17 ity of 00:00: [place] [facility] Abnormal Abnormal Disease Active 2021-02 Unive rs maternal maternal 2-11 ity of glucose glucose 00:00: [place] tolerance, tolerance, 00 Me dical antepartum antepartum Br anch Anemia of Anemia of Disease Active 2021-02 Uni vers mother in mother in 2-11 ity of , , [place] antepartum antepartum 00 Me dical Branch Seizure Seizure Disease Active Univers disorder disorder 8-05 ity of during during 00:00: [place] 00 Medi vipin in second in second Bran ch trimester trimester GBS (group GBS (group Disease Active Overview : Univers B B 714 Formattin ity of streptococ streptococ 00:00: g of this [place] cus) UTI cus) UTI 00 note Medica l complicati complicati might be Branch ng ng different from the original. neg royal Supervisio Supervisio Disease Active U nivers n of n of 09-02 ity of high-risk high-risk [place] [address] 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 Reports last episode was 2years ago Tobacco Tobacco Disease Active Overview: Univ ers use in use in 09-02 Formattin ity of 00:00: g of this [place] note Medical might be Branch different from the original. Reports quit Months ago Allergies, Adverse Reactions, Alerts Allergy Allergy Status Severity Reaction(s) Onset Inactive Treating Comm ents Source Name Type Date Date Clinician No Known DA Active U 2015-02 [facility] NO KNOWN Drug Active Univers ALLERGIE Class ity of S [facility] Social History Social Habit Start Date Stop Date Quantity Comments Source ASSERTION 2021-08-09 [facility] 00:00:00 [facility] History of Cigarette Smoker Universi ty of tobacco use [facility] Exposure to 2022-04-22 2022-05-02 Not sure [facility] SARS-CoV-2 00:00:00 09:46:00 [facility] (event) [place] Alcohol intake 2022-04-28 2022-04-28 Lifetime [facility] 00:00:00 00:00:[address] [facility] (finding) [place] Tobacco use and 2021-09-02 2021-09-02 Smokeless tobacco Un iversity of exposure 00:00:00 00:00:00 non-user [facility] 2000 [facility] Smoking Status Start Date Stop Date Source Ex-smoker 2021-09-02 00:00:00 2021-09-02 00:00:00 [facility] Medications Ordered Filled Start Stop Current Ordering Indication Dosage Frequency Signature Comments Components Source Medication Medication Date Date Medication? Clinician (SIG) Name Name ibuprofen Yes 600mg 600 mg, Univ ers (IBU) 3-04 Oral, Q6H, ity of tablet 600 18:00: First dose [place] mg 00 (after Medical last Branch modificati on) on 04/26/22 at 1200, Until Discontinu ed, Routine ibuprofen No 600mg 600 mg, Uni vers (IBU) 3- 03-05 Oral, Q6H, ity of tablet 600 18:00: 07:02 First dose [place] mg 00 :59 (after Medical last Branch modificati on) on 04/26/22 at 1200, Until Discontinu ed, Routine simethicone Yes 160mg 160 mg, Un cheyan[place] (GAS RELIEF 3-04 Oral, ity of (SIMETHICON 15:00: PC+HS, [place] E)) 00 First dose Medical chewable (after Branch tablet 160 last mg modificati on) on 04/26/22 at 0900, Until Discontinu ed, Routine simethicone 2022-0 2023- No 160mg 160 mg, U nivers (GAS RELIEF 3-04 03-05 Oral, ity of (SIMETHICON 15:00: 07:02 PC+HS, [place] E)) 00 :59 First dose Medical chewable (after Branch tablet 160 last mg modificati on) on 04/26/22 at 0900, Until Discontinu ed, Routine Yes [id number] 1{tbl} Take 1 Univers vitamin 3-04 tablet by ity of w/FA tablet 00:00: mouth in [place] 00 the Medical morning. Branch docusate Yes [id number] 200mg Take 2 U nivers 100 mg 3-04 capsules ity of capsule 00:00: by mouth [place] 00 once daily Medical as needed Branch for Constipati on. ferrous Yes [id number] 325mg Take 1 [place] sulfate 325 3-04 tablet by ity of mg (65 mg 00:00: [place] iron) 00 the Medical tablet morning Branch and 1 tablet in the evening. ibuprofen Yes [id number] 600mg Take 1 Univers 600 mg 3-04 tablet by ity of tablet 00:00: mouth [place] 00 every 6 Medical (six) Branch hours as needed (Pain). Take with food or milk. Yes [id number] 1{tbl} Take 1 Univers vitamin 3-04 tablet by ity of w/FA tablet 00:00: mouth in [place] 00 the Medical morning. Branch docusate Yes [id number] 200mg Take 2 U nivers 100 mg 3-04 capsules ity of capsule 00:00: by mouth [place] 00 once daily Medical as needed Branch for Constipati on. ferrous Yes [id number] 325mg Take 1 Un [place] sulfate 325 3-04 tablet by ity of mg (65 mg 00:00: [place] iron) 00 the Medical tablet morning Branch and 1 tablet in the evening. ibuprofen 2023-0 Yes [id number] 600mg Take 1 Univers 600 mg 3-04 tablet by ity of tablet 00:00: mouth [place] 00 every 6 Medical (six) Branch hours as needed (Pain). Take with food or milk. 2022-0 Yes [id number] 1{tbl} Take 1 Univers vitamin 3-04 tablet by ity of w/FA tablet 00:00: mouth in [place] 00 the Medical morning. Branch docusate 0 Yes [id number] 200mg Take 2 U nivers 100 mg 3-04 capsules ity of capsule 00:00: by mouth [place] 00 once daily Medical as needed Branch for Constipati on. ferrous 0 Yes [id number] 325mg Take 1 Un [place] sulfate 325 3-04 tablet by ity of mg (65 mg 00:00: [place] iron) 00 the Medical tablet morning Branch and 1 tablet in the evening. ibuprofen 0 Yes [id number] 600mg Take 1 Univers 600 mg 3-04 tablet by ity of tablet 00:00: mouth [place] 00 every 6 Medical (six) Branch hours as needed (Pain). Take with food or milk. 0 Yes [id number] 1{tbl} Take 1 Univers vitamin 3-04 tablet by ity of w/FA tablet 00:00: mouth in [place] 00 the Medical morning. Branch docusate 0 Yes [id number] 200mg Take 2 U nivers 100 mg 3-04 capsules ity of capsule 00:00: by mouth [place] 00 once daily Medical as needed Branch for Constipati on. ferrous 2022-0 Yes [id number] 325mg Take 1 Un [place] sulfate 325 3-04 tablet by ity of mg (65 mg 00:00: [place] iron) 00 the Medical tablet morning Branch and 1 tablet in the evening. ibuprofen 2022-0 Yes [id number] 600mg Take 1 Univers 600 mg 3-04 tablet by ity of tablet 00:00: mouth [place] 00 every 6 Medical (six) Branch hours as needed (Pain). Take with food or milk. HYDROcodone 2022-0 202- Yes [id number] 1{tbl} Take 1 U nivers -acetaminop 3-04 03-12 tablet by it y of hen 5-325 00:00: 05:59 mouth [place] mg tablet 00 :00 every 6 Medical (six) Branch hours as needed for Pain (scale 7-10) or Pain (scale 4-6) (Pain scale above 4) for up to 7 days. Do not exceed 3 grams of acetaminop hen in 24 hours. Indication s: acute pain HYDROcodone 2022- Yes [id number] 1{tbl} Take 1 U nivers -acetaminop 3-04 03-12 tablet by it y of hen 5-325 00:00: 05:59 mouth [place] mg tablet 00 :00 every 6 Medical (six) Branch hours as needed for Pain (scale 7-10) or Pain (scale 4-6) (Pain scale above 4) for up to 7 days. Do not exceed 3 grams of acetaminop hen in 24 hours. Indication s: acute pain HYDROcodone 2022- Yes [id number] 1{tbl} Take 1 U nivers -acetaminop 3-04 03-12 tablet by it y of hen 5-325 00:00: 05:59 mouth [place] mg tablet 00 :00 every 6 Medical (six) Branch hours as needed for Pain (scale 7-10) or Pain (scale 4-6) (Pain scale above 4) for up to 7 days. Do not exceed 3 grams of acetaminop hen in 24 hours. Indication s: acute pain HYDROcodone 2022- Yes [id number] 1{tbl} Take 1 U nivers -acetaminop 3-04 03-12 tablet by it y of hen 5-325 00:00: 05:59 mouth [place] mg tablet 00 :00 every 6 Medical (six) Branch hours as needed for Pain (scale 7-10) or Pain (scale 4-6) (Pain scale above 4) for up to 7 days. Do not exceed 3 grams of acetaminop hen in 24 hours. Indication s: acute pain sennosides Yes 8.6mg 8.6 mg, Uni vers (SENOKOT) 3-03 Oral, ity of tablet 8.6 15:00: DAILY, [place] mg 00 First dose Medical on Thu Branch 04/25/22 at 0900, Until Discontinu ed, Routine docusate Yes 100mg 100 mg, Unive rs (COLACE) 3-03 Oral, ity of capsule 100 15:00: DAILY, [place] mg 00 First dose Medical on Thu Branch 04/25/22 at 0900, Until Discontinu ed, Routine sennosides No 8.6mg 8.6 mg, Un cheyan[place] (SENOKOT) 04-25 Oral, ity of tablet 8.6 15:00: 07:02 DAILY, [place] mg 00 :59 First dose Medical on Thu Branch 04/25/22 at 0900, Until Discontinu ed, Routine docusate No 100mg 100 mg, Univ ers (COLACE) 04-25 Oral, ity of capsule 100 15:00: 07:02 DAILY, [place] mg 00 :59 First dose Medical on Thu Branch 04/25/22 at 0900, Until Discontinu ed, Routine rho(D) Yes 300ug 300 mcg, Univer s immune 04-25 Intramuscu ity of globulin 12:55: lar, ONCE, [place] (RHOGAM) 41 For 1 Medical syringe 300 dose, Branch mcg Conditiona l, Routine rho(D) No 300ug 300 mcg, Unive rs immune 04-2505 Intramuscu ity of globulin 12:55: 07:02 lar, ONCE, [place] (RHOGAM) 41 :59 For 1 Medical syringe 300 dose, Branch mcg Conditiona l, Routine HYDROcodone Yes 2{tbl} 2 tablet, Univers -acetaminop 04-25 Oral, ity of hen (NORCO 12:55: Q6HPRN, [place] 5) 5-325 mg 37 Starting Medi vipin tablet 2 on Fri Branch tablet 04/25/22 at 0655, Until Discontinu ed, Routine, Pain (scale 7-10), Alternate with Ibuprofen HYDROcodone Yes 1{tbl} 1 tablet, Univers -acetaminop 03 Oral, ity of hen (NORCO 12:55: Q6HPRN, [place] 5) 5-325 mg 37 Starting Medi vipin tablet 1 on Fri Branch tablet 04/25/22 at 0655, Until Discontinu ed, Routine, Pain (scale 4-6), Alternate with Ibuprofen diphenhydrA Yes 25mg 25 mg, Univ ers MINE 3-03 Slow IV ity of (BENADRYL) 12:55: Push, [place] injection 37 Q6HPRN, Medical 25 mg Starting Branch on Thu04/25/22 at 0655, Until Discontinu ed, Routine, Itching diphenhydrA 2022-0 Yes 25mg 25 mg, Univ ers MINE 04-25 Oral, ity of (BENADRYL) 12:55: Q6HPRN, [place] tablet 25 37 Starting Medica l mg on Thu Branch 04/25/22 at 0655, Until Discontinu ed, Routine, Sleep, Itching ondansetron 2022-0 Yes 4mg 4 mg, Slow Univers (ZOFRAN 04-25 IV Push, ity of (PF)) 12:55: Q8HPRN, [place] injection 4 37 Starting Medi vipin mg on Thu Branch 04/25/22 at 0655, Until Discontinu ed, Routine, Nausea and Vomiting (N/V) bisacodyL 0 Yes 10mg 10 mg, Univer s (DULCOLAX) 3 Rectal, ity of suppository 12:55: QDAILYPRN, [place] 10 mg 37 Starting Medical on Thu Branch 04/25/22 at 0655, Until Discontinu ed, Routine, Constipati on docusate 0 Yes 200mg 200 mg, Unive rs (COLACE) 3 Oral, ity of capsule 200 12:55: QDAILYPRN, [place] mg 37 Starting Medical on Thu Branch 04/25/22 at 0655, Until Discontinu ed, Routine, Constipati on magnesium 0 Yes 30mL 30 mL, Univer s hydroxide 03 Oral, ity of (MILK OF 12:55: QDAILYPRN, [place] MAGNESIA) 37 Starting Medica l 400 mg/5 mL on Thu Branch suspension 04/25/22 at 30 mL 0655, Until Discontinu ed, Routine, Constipati on lactated 2022-0 Yes 1000mL at 125 Unive rs ringers IV 3-03 mL/hr, ity of infusion 12:55: 1,000 mL, [place] 1,000 mL 37 IV Medical Infusion, Branch PRN, 1 dose, Starting on Thu04/25/22 at 0655, Until Discontinu ed, Routine HYDROcodone 2023-0 2023- No 2{tbl} 2 tablet, Univers -acetaminop 04-25- Oral, ity of hen (NORCO 12:55: 07:02 Q6HPRN, [place] 5) 5-325 mg 37 :59 Starting Medi vipin tablet 2 on Fri Branch tablet 04/25/22 at 0655, Until 04/27/22 at 0102, Routine, Pain (scale 7-10), Alternate with Ibuprofen HYDROcodone 2022- No 1{tbl} 1 tablet, Univers -acetaminop 04-25 Oral, ity of hen (NORCO 12:55: 07:02 Q6HPRN, [place] 5) 5-325 mg 37 :59 Starting Medi vipin tablet 1 on Fri Branch tablet 04/25/22 at 0655, Until 04/27/22 at 0102, Routine, Pain (scale 4-6), Alternate with Ibuprofen diphenhydrA 2022- No 25mg 25 mg, Uni vers MINE 04-25 Slow IV ity of (BENADRYL) 12:55: 07:02 Push, [place] injection 37 :59 Q6HPRN, Medical 25 mg Starting Branch on 04/25/22 at 0655, Until 04/27/22 at 0102, Routine, Itching diphenhydrA 2022- No 25mg 25 mg, Uni vers MINE 04-25 Oral, ity of (BENADRYL) 12:55: 07:02 Q6HPRN, [place] tablet 25 37 :59 Starting Medica l mg on Fri Branch 04/25/22 at 0655, Until 04/27/22 at 0102, Routine, Sleep, Itching ondansetron 2022- No 4mg 4 mg, Slow Univers (ZOFRAN 04-25 IV Push, ity of (PF)) 12:55: 07:02 Q8HPRN, [place] injection 4 37 :59 Starting Medi vipin mg on Fri Branch 04/25/22 at 0655, Until 04/27/22 at 0102, Routine, Nausea and Vomiting (N/V) bisacodyL 2022- No 10mg 10 mg, Unive rs (DULCOLAX) 3-03 03-05 Rectal, ity o f suppository 12:55: 07:02 QDAILYPRN, [place] 10 mg 37 :59 Starting Medical on Fri Branch 04/25/22 at 0655, Until 04/27/22 at 0102, Routine, Constipati on docusate 2022- No 200mg 200 mg, Univ ers (COLACE) 04-25 Oral, ity of capsule 200 12:55: 07:02 QDAILYPRN, [place] mg 37 :59 Starting Medical on Fri Branch 04/25/22 at 0655, Until 04/27/22 at 0102, Routine, Constipati on magnesium 2022- No 30mL 30 mL, Unive rs hydroxide 04-25 Oral, ity of (MILK OF 12:55: 07:02 QDAILYPRN, [place] MAGNESIA) 37 :59 Starting Medica l 400 mg/5 mL on Fri Branch suspension 04/25/22 at 30 mL 0655, Until 04/27/22 at 0102, Routine, Constipati on lactated 2022- No 1000mL at 125 Univ ers ringers IV 04-25 mL/hr, ity of infusion 12:55: 07:02 1,000 mL, [place] 1,000 mL 37 :59 IV Medical Infusion, Branch PRN, 1 dose, Starting on 04/25/22 at 0655, Until 04/27/22 at 0102, Routine ibuprofen 2022- No 600mg 600 mg, Uni vers (IBU) 04-25 Oral, ity of tablet 600 12:55: 14:14 Q6HPRN, [place] mg 37 :37 Starting Medical on Fri Branch 04/25/22 at 0655, Until 04/26/22 at 0814, Routine, Pain (scale 1-3) simethicone 2022- No 160mg 160 mg, U nivers (GAS RELIEF 04-25 Oral, ity of (SIMETHICON 12:55: 14:14 PC+HSPRN, [place] E)) 37 :37 Starting Medical chewable on Fri Branch tablet 160 04/25/22 at mg 0655, Until 04/26/22 at 0814, Routine, Gas acetaminoph 2022- No 1000mg 1,000 mg, Univers en ADULT 04-25 IV ity of (OFIRMEV) 11:00: 10:38 Infusion, [place] injection 00 :00 at 400 Medical 1,000 mg mL/hr Branch Administer over 15 Minutes, ONCE, 1 dose, On Thu04/25/22 at 0500, Routine
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
Lock Medi vipin injection out Branch Interval: 10 Minutes
Basal Rate: 0 mg/hr
F our Hour Dose Limit: 20 mg
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
Lock Medi vipin injection out Branch Interval: 10 Minutes
Basal Rate: 0 mg/hr
F our Hour Dose Limit: 20 mg
Intr avenous, 30 mL, CONTINUOUS , Starting on Thu04/25/22 at 0445, Until 04/27/22 at 0102 lactated 2022-0 Yes 1000mL at 75 Univer s ringers IV 3-03 mL/hr, ity of infusion 09:45: 1,000 mL, [place] 1,000 mL 00 IV Medical Infusion, Branch CONTINUOUS , Starting on Thu04/25/22 at 0345, Until Discontinu ed, Routine, PACU lactated 2022-0 2022- No 1000mL at 75 Unive rs ringers IV 04-25-05 mL/hr, ity of infusion 09:45: 07:02 1,000 mL, [place] 1,000 mL 00 :59 IV Medical Infusion, Branch CONTINUOUS , Starting on Thu04/25/22 at 0345, Until 04/27/22 at 0102, Routine, PACU naloxone 2022-0 Yes .1mg 0.1 mg, Univer s (NARCAN) 04-25 Slow IV ity of injection 09:39: Push, [place] 0.1 mg 13 SEE-INSTRU Medical CTIONS, Branch Starting on Thu04/25/22 at 0339, Until Discontinu ed, Routine morpHINE 2 0 Yes Slow IV Univ ers mg/mL LOAD 04-25 Push, ity of & RESCUE 09:39: Routine [place] INJECTION 13 Medical SYRG Branch naloxone 2022-0 2022- No .1mg 0.1 mg, Unive rs (NARCAN) 04-25-05 Slow IV ity of injection 09:39: 07:02 [place], [place] 0.1 mg 13 :59 SEE-INSTRU Medical CTIONS, Branch Starting on Thu04/25/22 at 0339, Until 04/27/22 at 0102, Routine morpHINE 2 2022-2022- No Slow IV Uni vers mg/mL LOAD 04-2505 Push, ity of & RESCUE 09:39: 07:02 Routine [place] INJECTION 13 :59 Medical SYRG Branch HYDROmorpho 0 Yes .2mg 0.2 mg, Uni vers ne 03 Slow IV ity of (DILAUDID) 09:36: Push, [place] injection 53 Q5MIN PRN, Medi vipin 0.2 mg 10 doses, Branch Starting on Thu04/25/22 at 0336, Until Discontinu ed, Routine, Pain (scale 7-10), PACU
Us e approved by (Faculty): PAIN SERVICE FENTanyl PF Yes 25ug 25 mcg, Uni vers (SUBLIMAZE 04-25 Slow IV ity of (PF)) 09:36: Push, [place] injection 53 Q5MIN PRN, Medi vipin 25 mcg 4 doses, Branch Starting on Thu04/25/22 at 0336, Until Discontinu ed, Routine, Pain (scale 4-6), PACU ondansetron 0 Yes 4mg 4 mg, Slow Univers (ZOFRAN 03 IV Push, ity of (PF)) 09:36: PRN, 1 [place] injection 4 53 dose, Medical mg Starting Branch on Thu04/25/22 at 0336, Until Discontinu ed, Routine, Nausea and Vomiting (N/V), PACU HYDROmorpho 0 2023- No .2mg 0.2 mg, Un cheyan[place] ne 04-25-05 Slow IV ity of (DILAUDID) 09:36: 07:02 Push, [place] injection 53 :59 Q5MIN PRN, Medi vipin 0.2 mg 10 doses, Branch Starting on Thu04/25/22 at 0336, Until 04/27/22 at 0102, Routine, Pain (scale 7-10), PACU
Us e approved by (Faculty): PAIN SERVICE FENTanyl PF 2022- No 25ug 25 mcg, Un [place] (SUBLIMAZE 04-25 Slow IV ity o f (PF)) 09:36: 07:02 Push, [place] injection 53 :59 Q5MIN PRN, Medi vipin 25 mcg 4 doses, Branch Starting on Thu04/25/22 at 0336, Until 04/27/22 at 0102, Routine, Pain (scale 4-6), PACU ondansetron 2022- No 4mg 4 mg, Slow Univers (ZOFRAN 04-25 IV Push, ity of (PF)) 09:36: 07:02 PRN, 1 [place] injection 4 53 :59 dose, Medical mg Starting Branch on Thu04/25/22 at 0336, Until 04/27/22 at 0102, Routine, Nausea and Vomiting (N/V), PACU HYDROcodone 2022-0 Yes 1{tbl} 1 tablet, Univers -acetaminop 3-03 Oral, ity of hen (NORCO) 08:43: Q6HPRN, 1 [place] 10-325 mg 05 dose, Medical tablet 1 Starting Branch tablet on Thu04/25/22 at 0243, Until Discontinu ed, Routine, Pain (scale 7-10) HYDROcodone 2022-0 2023- No 1{tbl} 1 tablet, Univers -acetaminop 3-03 03-05 Oral, ity of hen (NORCO) 08:43: 07:02 Q6HPRN, 1 [place] 10-325 mg 05 :59 dose, Medical tablet 1 Starting Branch tablet on Thu04/25/22 at 0243, Until 04/27/22 at 0102, Routine, Pain (scale 7-10) HYDROcodone 2022-0 Yes 1{tbl} 1 tablet, Univers -acetaminop 3-03 Oral, ity of hen (NORCO 08:43: Q6HPRN, 1 [place] 5) 5-325 mg 04 dose, Medical tablet 1 Starting Branch tablet on Thu04/25/22 at 0243, Until Discontinu ed, Routine, Pain (scale 4-6) HYDROcodone 2023-0 2023- No 1{tbl} 1 tablet, Univers -acetaminop 3-03 03-05 Oral, ity of hen (NORCO 08:43: 07:02 Q6HPRN, 1 [place] 5) 5-325 mg 04 :59 dose, Medical tablet 1 Starting Branch tablet on Thu04/25/22 at 0243, Until 04/27/22 at 0102, Routine, Pain (scale 4-6) oxytocin 2022-0 Yes 600mL/h 600 mL/hr, Univers (PITOCIN) 3-03 IV ity of 30 units in 08:42: Infusion, [place] NS 500 mL 46 PRN, For Medica l IV infusion post Branch delivery uterine atony., Starting on Thu04/25/22 at 0242<br&gt ;Start at 600 mL/hr for 1 hr then 150 mL/hr for 1 hr.
oxytocin 2022-0 Yes 300mL/h 300 mL/hr, Univers (PITOCIN) 3-03 IV ity of 30 units in 08:42: Infusion, [place] NS 500 mL 46 SEE-INSTRU Medi vipin IV infusion CTIONS, Branc h Starting on Thu04/25/[address] at 300 mL/hr for 1 hr then 150 mL/hr for 1 hr. & nbsp; For post delivery uterotonic
oxytocin 2022-0 2022- No 600mL/h 600 mL/hr, Univers (PITOCIN) 3-03 03-05 IV ity of 30 units in 08:42: 07:02 Infusion, [place] NS 500 mL 46 :59 PRN, For Medica l IV infusion post Branch delivery uterine atony., Starting on Thu04/25/22 at 0242<br&gt ;Start at 600 mL/hr for 1 hr then 150 mL/hr for 1 hr.
oxytocin 3-0 2022- No 300mL/h 300 mL/hr, Univers (PITOCIN) 04-25-05 IV ity of 30 units in 08:42: 07:02 Infusion, [place] NS 500 mL 46 :59 SEE-INSTRU Medi vipin IV infusion CTIONS, Branc h Starting on Thu04/25/[address] at 300 mL/hr for 1 hr then 150 mL/hr for 1 hr. & nbsp; For post delivery uterotonic
sodium Yes 30mL 30 mL, Univers citrate-cit 04-25 Oral, ity of batool acid 08:34: PRE-PROCED [place] (BICITRA) 08 URE ONCE, Medic al 500-334 1 dose, Branch mg/5 mL Starting solution 30 on Fri mL 04/25/22 at 0234, Until Discontinu ed, Routine, Surgery sodium 2022- No 30mL 30 mL, Univers citrate-cit 04-25 03-05 Oral, ity of batool acid 08:34: 07:02 PRE-PROCED [place] (BICITRA) 08 :59 URE ONCE, Medic al 500-334 1 dose, Branch mg/5 mL Starting solution 30 on Fri mL 04/25/22 at 0234, Until 04/27/22 at 0102, Routine, Surgery terbutaline No .25mg 0.25 mg, Univers (BRETHINE) 04-2503 Subcutaneo it y of injection 06:42: 06:42 , ONCE, [place] 0.25 mg 00 :00 1 dose, On Medica l 04/25/22 Branch at 0045, Routine ropivacaine Yes Epidural, U nivers 0.2 % 04-25 CONTINUOUS ity of (NAROPIN 06:40: PRN, [place] (PF)) 00 Starting Medical epidural on Fri Branch infusion 04/25/22 at 0040, Until Discontinu ed, Routine, Intra-op fentaNYL-ro Yes Epidural, U nivers pivacaine 2 - CONTINUOUS it y of mcg/mL-0.1 17:33: PRN, Brad % (PF) in 00 Starting Medica l NS 200 mL on Lorri Branch epidural 04/24/22 at infusion 1133, RTU Until Discontinu ed, Routine, Intra-op lidocaine-e 2023-0 Yes Intraderma Univers pinephrine 3-02 l, ONCE ity of (XYLOCAINE 17:30: INTRA [place] W/EPINEPHRI 00 PROCEDURE, Me dical NE) 1.5 Starting Branch %-1:200,000 on Lorri injection 04/24/22 at 1130, Until Discontinu ed, Routine, Intra-op oxytocin 2023-0 Yes 2mU/min at 2-40 Uni vers (PITOCIN) 3-02 mL/hr, IV ity o f 30 units in 15:36: Infusion, [place] 500 mL 22 TITRATE, Medica l IV infusion Starting Bran ch on Lorri 04/24/22 at 0936, Until Discontinu ed, LUCITA oxytocin 2023-0 2023- No 2mU/min at 2-40 [facility] [place] (PITOCIN) 3-02 03-05 mL/hr, IV ity of 30 units in 15:36: 07:02 Infusion, [place] NS 500 mL 22 :59 TITRATE, Medica l IV infusion Starting Bran ch on Lorri 04/24/22 at 0936, Until 04/27/22 at 0102, LUCITA lactated 2023-0 2023- No 500mL at 999 Unive rs ringers IV 3-02 03-02 mL/hr, 500 it y of infusion 15:30: 17:14 mL, IV [place] 500 mL 00 :00 Infusion, Medical ONCE, 1 Branch dose, On [place]ri 04/24/22 at 0930, Routine lactated 2023-0 Yes 500mL at 999 Univer s ringers IV 3-02 mL/hr, 500 ity of infusion 14:36: mL, IV [place] 500 mL 04 Infusion, Medical PRN - SEE Branch INSTRUCTIO NS, 1 dose, Starting on [place]ri 04/24/22 at 0836, Until Discontinu ed, Routine lactated 2023-0 2023- No 500mL at 999 Unive rs ringers IV 3-02 03-05 mL/hr, 500 it y of infusion 14:36: 07:02 mL, IV [place] 500 mL 04 :59 Infusion, Medical PRN - SEE Branch INSTRUCTIO NS, 1 dose, Starting on [place] 04/24/22 at 0836, Until 04/27/22 at 0102, Routine sodium 2023-0 2023- No 30mL 30 mL, Univers citrate-cit 04-24 Oral, ity of batool acid 14:36: 17:16 PRE-PROCED [place] (BICITRA) 04 :00 URE ONCE, Medic al 500-334 1 dose, Branch mg/5 mL Starting solution 30 on [place]ri mL 04/24/22 at 0836, Until Thu04/24/22 at 1116, Routine, Surgery/Pr ocedure proMETHazin 2022-0 202- No 12.5mg 12.5 mg, Univers e 04-24 IV ity of (PHENERGAN) 09:15: 09:26 Piggyback, [place] 12.5 mg in 00 :46 at 200 Medical NS 50 mL IV mL/hr Branch piggyback Administer (CNR) over 15 Minutes, ONCE NOW, 1 dose, On [place] 04/24/22 at 0315, Routine butorphanol 2022-0 2022- No 1mg 1 mg, Univ ers (STADOL) 04-24 Intravenou ity of injection 1 09:00: 08:55 s, ONCE, 1 [place] mg 00 :00 dose, On Medical Thu04/24/22 Branch at 0300, Routine proMETHazin 0 2022- No 12.5mg 12.5 mg, [facility] e 04-24 IV ity of (PHENERGAN) 03:07: 05:50 Piggyback, [place] 12.5 mg in 00 :09 at 200 Medical NS 50 mL IV mL/hr Branch piggyback Administer (CNR) over 15 Minutes, ONCE NOW, 1 dose, On Thu04/23/22 at 2115, LUCITA butorphanol 2022-0 202- No 1mg 1 mg, Univ ers (STADOL) 04-24 Intravenou ity of injection 1 03:07: 03:54 s, ONCE, 1 [place] mg 00 :00 dose, On Medical Thu04/23/22 Branch at 2115, Routine sodium 2022-0 Yes 30mL 30 mL, Univers citrate-cit 04-24 Oral, ity of batool acid 01:40: PRE-PROCED [place] (BICITRA) 33 URE ONCE, Medic al 500-334 1 dose, Branch mg/5 mL Starting solution 30 on Thu04/23/22 at 1940, Until Discontinu ed, Routine, Surgery/Pr ocedure lidocaine 2022-0 Yes 50mL 50 mL, Univer s 1% 02 Infiltrati ity of (XYLOCAINE) 01:40: on, PRN - [place] 10 mg/mL (1 33 SEE Medical %) INSTRUCTIO Branch injection NS, 50 mL Starting on Thu04/23/22 at 1940, Until Discontinu ed, Routine, Local anesthesia , For laceration repair only as a local anesthetic as indicated. lidocaine 0 Yes .3mL 0.3 mL, Unive rs 1% (PF) 302 Infiltrati ity of (XYLOCAINE) 01:40: on, PRN - [place] injection 33 SEE Medical 0.3 mL INSTRUCTIO Branch NS, Starting on Thu04/23/22 at 1940, Until Discontinu ed, Routine, Local anesthesia , For IV line placement only as a local anesthetic . lactated 0 Yes 500mL at 999 Univer s ringers IV 3-02 mL/hr, 500 ity of infusion 01:40: mL, IV [place] 500 mL 33 Infusion, Medical PRN - SEE Branch INSTRUCTIO NS, Starting on Thu04/23/22 at 1940, Until Discontinu ed, Routine D5W-LR IV 0 Yes 1000mL at 1-125 [place] infusion 3-02 mL/hr, IV ity of 1,000 mL 01:40: Infusion, [place] 33 TITRATE, Medical Starting Branch on Thu04/23/22 at 1940, Until Discontinu ed, Routine sodium 2022- No 30mL 30 mL, Univers citrate-cit 04-24 03-05 Oral, ity of batool acid 01:40: 07:02 PRE-PROCED [place] (BICITRA) 33 :59 URE ONCE, Medic al 500-334 1 dose, Branch mg/5 mL Starting solution 30 on Thu mL 04/23/22 at 1940, Until 04/27/22 at 0102, Routine, Surgery/Pr ocedure lidocaine 2022-0 2022- No 50mL 50 mL, Unive rs 1% 04-24 03-05 Infiltrati ity of (XYLOCAINE) 01:40: 07:02 on, PRN - [place] 10 mg/mL (1 33 :59 SEE Medical %) INSTRUCTIO Branch injection NS, 50 mL Starting on Thu04/23/22 at 1940, Until 04/27/22 at 0102, Routine, Local anesthesia , For laceration repair only as a local anesthetic as indicated. lidocaine 2022- No .3mL 0.3 mL, Univ ers 1% (PF) 04-24 03-05 Infiltrati ity o f (XYLOCAINE) 01:40: 07:02 on, PRN - [place] injection 33 :59 SEE Medical 0.3 mL INSTRUCTIO Branch NS, Starting on Thu04/23/22 at 1940, Until Thu04/27/22 at 0102, Routine, Local anesthesia , For IV line placement only as a local anesthetic . lactated 2022- No 500mL at 999 Unive rs ringers IV 04-24 03-05 mL/hr, 500 it y of infusion 01:40: 07:02 mL, IV [place] 500 mL 33 :59 Infusion, Medical PRN - SEE Branch INSTRUCTIO NS, Starting on Thu04/23/22 at 1940, Until Thu04/27/22 at 0102, Routine D5W-LR IV 2022- No 1000mL at 1-125 U nivers infusion 04-24 03-05 mL/hr, IV ity o f 1,000 mL 01:40: 07:02 Infusion, [place] 33 :59 TITRATE, Medical Starting Branch on Thu04/23/22 at 1940, Until Thu04/27/22 at 0102, Routine alum-mag Yes 30mL 30 mL, Univers hydroxide-s 04-24 Oral, ity of imeth 01:37: Q6HPRN, [place] (MAALOX 05 Starting Medical PLUS / on Thu Branch MAG-AL 04/23/22 at PLUS) 1936, 200-200-20 Until mg/5 mL Discontinu suspension ed, 30 mL Routine, Indigestio n docusate Yes 200mg 200 mg, Unive rs (COLACE) 04-24 Oral, ity of capsule 200 01:37: QHSPRN, [place] mg 05 Starting Medical on Thu Branch 04/23/22 at 1937, Until Discontinu ed, Routine, Constipati on magnesium Yes 30mL 30 mL, Univer s hydroxide 3-02 Oral, ity of (MILK OF 01:37: QDAILYPRN, [place] MAGNESIA) 05 Starting Medica l 400 mg/5 mL on Wed Branch suspension 04/23/22 at 30 mL 193, Until Discontinu ed, Routine, Constipati on alum-mag No 30mL 30 mL, Univer s hydroxide-s 04-24 Oral, ity of imeth 01:37: 07:02 Q6HPRN, [place] (MAALOX 05 :59 Starting Medical PLUS / on Wed Branch MAG-AL 04/23/22 at PLUS) 1936, 200-200-20 Until Sun mg/5 mL 04/27/22 at suspension 0102, 30 mL Routine, Indigestio n docusate 2022- No 200mg 200 mg, Univ ers (COLACE) 04-24 Oral, ity of capsule 200 01:37: 07:02 QHSPRN, [place] mg 05 :59 Starting Medical on Wed Branch 04/23/22 at 1937, Until 04/27/22 at 0102, Routine, Constipati on magnesium No 30mL 30 mL, Unive rs hydroxide 04-24 Oral, ity of (MILK OF 01:37: 07:02 QDAILYPRN, [place] MAGNESIA) 05 :59 Starting Medica l 400 mg/5 mL on Wed Branch suspension 04/23/22 at 30 mL 1936, Until 04/27/22 at 0102, Routine, Constipati on fluconazole 2022- No [id number] 150mg Take 1 Univers (DIFLUCAN) 04-23 tablet by ity of 150 mg 00:00: 00:00 mouth [place] tablet 00 :00 now for 1 Medical dose. Branch fluconazole 2022- No [id number] 150mg Take 1 Univers (DIFLUCAN) 04-23 tablet by ity of 150 mg 00:00: 00:00 mouth [place] tablet 00 :00 now for 1 Medical dose. Branch fluconazole 2022- Yes [id number] 150mg Take 1 Univers (DIFLUCAN) 04-23 tablet by ity of 150 mg 00:00: 05:59 mouth [place] tablet 00 :00 now for 1 Medical dose. Branch ferrous 2022-0 Yes [id number] 325mg Take 1 [facility] [place] sulfate 325 2-15 tablet by ity of mg (65 mg 00:00: mouth [place] iron) 00 the Medical tablet morning Branch and 1 tablet in the evening. ascorbic 2022-0 Yes [id number] 500mg Take 1 U nivers acid, 2-15 tablet by ity of vitamin C, 00:00: mouth in [place] 500 mg 00 the Medical tablet morning Branch and 1 tablet at noon and 1 tablet in the evening. ferrous 2022-0 Yes [id number] 325mg Take 1 [place] sulfate 325 2-15 tablet by ity of mg (65 mg 00:00: mouth [place] iron) 00 the Medical tablet morning Branch and 1 tablet in the evening. ascorbic 2022-0 Yes [id number] 500mg Take 1 U nivers acid, 2-15 tablet by ity of vitamin C, 00:00: mouth in [place] 500 mg 00 the Medical tablet morning Branch and 1 tablet at noon and 1 tablet in the evening. ferrous 2022-0 Yes [id number] 325mg Take 1 [place] sulfate 325 2-15 tablet by ity of mg (65 mg 00:00: mouth [place] iron) 00 the Medical tablet morning Branch and 1 tablet in the evening. ascorbic 2022-0 Yes [id number] 500mg Take 1 U nivers acid, 2-15 tablet by ity of vitamin C, 00:00: mouth in [place] 500 mg 00 the Medical tablet morning Branch and 1 tablet at noon and 1 tablet in the evening. ferrous 2022-0 Yes [id number] 325mg Take 1 [place] sulfate 325 2-15 tablet by ity of mg (65 mg 00:00: mouth [place] iron) 00 the Medical tablet morning Branch and 1 tablet in the evening. ascorbic 2022-0 Yes [id number] 500mg Take 1 U nivers acid, 2-15 tablet by ity of vitamin C, 00:00: mouth in [place] 500 mg 00 the Medical tablet morning Branch and 1 tablet at noon and 1 tablet in the evening. ferrous 2022-0 Yes [id number] 325mg Take 1 [place] sulfate 325 2-15 tablet by ity of mg (65 mg 00:00: mouth [place] iron) 00 the Medical tablet morning Branch and 1 tablet in the evening. ascorbic Yes [id number] 500mg Take 1 U nivers acid, 2-15 tablet by ity of vitamin C, 00:00: mouth in [place] 500 mg 00 the Medical tablet morning Branch and 1 tablet at noon and 1 tablet in the evening. ferrous Yes [id number] 325mg Take 1 [place] sulfate 325 2-15 tablet by ity of mg (65 mg 00:00: mouth [place] iron) 00 the Medical tablet morning Branch and 1 tablet in the evening. ascorbic Yes [id number] 500mg Take 1 U nivers acid, 2-15 tablet by ity of vitamin C, 00:00: mouth in [place] 500 mg 00 the Medical tablet morning Branch and 1 tablet at noon and 1 tablet in the evening. ferrous 2022- No [id number] 325mg Take 1 U nivers sulfate 325 2-15 03-04 tablet by it y of mg (65 mg 00:00: 00:00 mouth in [place] iron) 00 :00 the Medical tablet morning Branch and 1 tablet in the evening. ascorbic 2022- No [id number] 500mg Take 1 Univers acid, 2-15 03-04 tablet by ity of vitamin C, 00:00: 00:00 mouth in [place] 500 mg 00 :00 the Medical tablet morning Branch and 1 tablet at noon and 1 tablet in the evening. ferrous 2022- No [id number] 325mg Take 1 U nivers sulfate 325 2-15 03-04 tablet by it y of mg (65 mg 00:00: 00:00 mouth in [place] iron) 00 :00 the Medical tablet morning Branch and 1 tablet in the evening. ascorbic 2022- No [id number] 500mg Take 1 Univers acid, 2-15 03-04 tablet by ity of vitamin C, 00:00: 00:00 mouth in [place] 500 mg 00 :00 the Medical tablet morning Branch and 1 tablet at noon and 1 tablet in the evening. fluconazole 2022- Yes [id number] 150mg Take 1 Univers (DIFLUCAN) 2-14 02-15 tablet by ity of 150 mg 00:00: 05:59 mouth [place] tablet 00 :00 now for 1 Medical dose. Branch metroNIDAZO 3-0 Yes [id number] 500mg Take 1 Univers LE 500 mg 2-02 tablet by ity o f tablet 00:00: mouth in [place] 00 the Medical morning [place] and 1 tablet in the evening. metroNIDAZO 3-0 Yes [id number] 500mg Take 1 Univers LE 500 mg 2-02 tablet by ity o f tablet 00:00: mouth in [place] 00 the Medical morning [place] and 1 tablet in the evening. metroNIDAZO 3-0 Yes [id number] 500mg Take 1 Univers LE 500 mg 2-02 tablet by ity o f tablet 00:00: mouth in [place] 00 the Medical morning Branch and 1 tablet in the evening. metroNIDAZO 3-0 Yes [id number] 500mg Take 1 Univers LE 500 mg 2-02 tablet by ity o f tablet 00:00: mouth in [place] [address] [facility] morning [place] and 1 tablet in the evening. metroNIDAZO 3-0 Yes [id number] 500mg Take 1 Univers LE 500 mg 2-02 tablet by ity o f tablet 00:00: mouth in [place] [address] [facility] morning [place] and 1 tablet in the evening. metroNIDAZO 3-0 Yes [id number] 500mg Take 1 Univers LE 500 mg 2-02 tablet by ity o f tablet 00:00: mouth in [place] [address] [facility] morning [place] and 1 tablet in the evening. metroNIDAZO 3-0 Yes [id number] 500mg Take 1 Univers LE 500 mg 2-02 tablet by ity o f tablet 00:00: mouth in [place] [address] [facility] morning [place] and 1 tablet in the evening. metroNIDAZO 3-0 Yes [id number] 500mg Take 1 Univers LE 500 mg 2-02 tablet by ity o f tablet 00:00: mouth in [place] [address] the Medical morning [place] and 1 tablet in the evening. metroNIDAZO 3-0 Yes [id number] 500mg Take 1 Univers LE 500 mg 2-02 tablet by ity o f tablet 00:00: mouth in [place] [address] [facility] morning [place] and 1 tablet in the evening. metroNIDAZO 2023-0 Yes [id number] 500mg Take 1 Univers LE 500 mg 2-02 tablet by ity o f tablet 00:00: mouth in [place] [address] [facility] morning [place] and 1 tablet in the evening. metroNIDAZO 2023-0 Yes [id number] 500mg Take 1 Univers LE 500 mg 2-02 tablet by ity o f tablet 00:00: mouth in [place] 00 the Medical morning Branch and 1 tablet in the evening. metroNIDAZO 2022- No [id number] 500mg Take 1 Univers LE 500 mg 2- tablet by ity of tablet 00:00: 00:00 mouth in [place] 00 :00 the Medical morning Branch and 1 tablet in the evening. metroNIDAZO 2022- No [id number] 500mg Take 1 Univers LE 500 mg 2- tablet by ity of tablet 00:00: 00:00 mouth in [place] 00 :00 the Medical morning Branch and 1 tablet in the evening. fluconazole 2022- Yes [id number] 150mg Take 1 Univers (DIFLUCAN) 03-25 tablet by ity of 150 mg 00:00: 05:59 mouth [place] tablet 00 :00 now for 1 Medical dose. Branch fluconazole 2022- Yes [id number] 150mg Take 1 Univers (DIFLUCAN) 03-25 tablet by ity of 150 mg 00:00: 05:59 mouth once [place] tablet 00 :00 now for 1 Medical dose. Branch fluconazole 2022- Yes [id number] 150mg Take 1 Univers (DIFLUCAN) 03-25 tablet by ity of 150 mg 00:00: 05:59 mouth once [place] tablet 00 :00 now for 1 Medical dose. Branch fluconazole 2022- Yes [id number] 150mg Take 1 Univers (DIFLUCAN) 03-25 tablet by ity of 150 mg 00:00: 05:59 mouth once [place] tablet 00 :00 now for 1 Medical dose. Branch NaCl 0.9% 2021-02 Yes 1000mL at 125 Univ ers (NS) IV 2-15 mL/hr, IV ity of infusion 00:45: Infusion, [place] 1,000 mL 00 CONTINUOUS Medic al , Starting Branch on Thu02/05/22 at 1845, Until Discontinu ed, Routine metoclopram 2021-02 Yes 10mg 10 mg, Univ ers yuriy HCl 2-15 Slow IV ity of (REGLAN) 00:00: Push, Q6H, [place] injection 00 First dose Medi vipin 10 mg on Wed Branch 02/05/22 at 1800, Until Discontinu ed, Routine sodium 2021-02 Yes 15mL 15 mL, Univers citrate-cit 2-15 Oral, ity of batool acid 00:00: PC+HS, [place] (BICITRA) 00 First dose Medi vipin 500-334 on Wed Branch mg/5 mL 02/05/22 solution 15 at 1800, mL Until Discontinu ed, Routine sodium 2021-02 Yes 15mL 15 mL, Univers citrate-cit 2-12 Oral, ity of batool acid 00:00: PC+HS, [place] (BICITRA) 00 First dose Medi vipin 500-334 on Sun Branch mg/5 mL 02/02/22 solution 15 at 1800, mL Until Discontinu ed, Routine 2021-02- No Take by [employer] vit 2-11 12-11 mouth. ity of no.124/iron 18:49: 00:00 [place] /folic 59 :00 Medical ( Branch VITAMIN ORAL) 2021-02- No Take by [employer] vit 2-11 12-11 mouth. ity of no.124/iron 18:49: 00:00 [place] /folic 59 :00 Medical ( Branch VITAMIN ORAL) 2021-02 Yes Take by [employer] s vit 2-11 mouth. ity of no.124/iron 18:33: [place] /folic 28 Medical ( Branch VITAMIN ORAL) Iron Fum & 2021-02 Yes [id number] 1{capsu Take 1 Univers P-FA-Vit B 2-11 le} capsule by ity of & C No.9 00:00: mouth [place] (INTEGRA 00 daily. Medical PLUS) 125 Branch mg iron- 1 mg Cap Iron Fum & 2021-02 Yes [id number] 1{capsu Take 1 Univers P-FA-Vit B 2-11 le} capsule by ity of & C No.9 00:00: mouth [place] (INTEGRA 00 daily. Medical PLUS) 125 Branch mg iron- 1 mg Cap Iron Fum & 2021-02 Yes [id number] 1{capsu Take 1 Univers P-FA-Vit B 2-11 le} capsule by ity of & C No.9 00:00: mouth [place] (INTEGRA 00 daily. Medical PLUS) 125 Branch mg iron- 1 mg Cap Iron Fum & 2021-02 Yes [id number] 1{capsu Take 1 Univers P-FA-Vit B 2-11 le} capsule by ity of & C No.9 00:00: mouth [place] (INTEGRA daily. Medical PLUS) 125 Branch mg iron- 1 mg Cap Iron Fum & 2021-02 Yes [id number] 1{capsu Take 1 Univers P-FA-Vit B 2-11 le} capsule by ity of & C No.9 00:00: mouth [place] (INTEGRA daily. Medical PLUS) 125 Branch mg iron- 1 mg Cap Iron Fum & 2021-02 Yes [id number] 1{capsu Take 1 Univers P-FA-Vit B 2-11 le} capsule by ity of & C No.9 00:00: mouth [place] (INTEGRA daily. Medical PLUS) 125 Branch mg iron- 1 mg Cap Iron Fum & 2021-02 Yes [id number] 1{capsu Take 1 Univers P-FA-Vit B 2-11 le} capsule by ity of & C No.9 00:00: mouth [place] (INTEGRA daily. Medical PLUS) 125 Branch mg iron- 1 mg Cap Iron Fum & 2021-02 Yes [id number] 1{capsu Take 1 Univers P-FA-Vit B 2-11 le} capsule by ity of & C No.9 00:00: mouth [place] (INTEGRA daily. Medical PLUS) 125 Branch mg iron- 1 mg Cap Iron Fum & 2021-02 Yes [id number] 1{capsu Take 1 Univers P-FA-Vit B 2-11 le} capsule by ity of & C No.9 00:00: mouth [place] (INTEGRA daily. Medical PLUS) 125 Branch mg iron- 1 mg Cap Iron Fum & 2021-02 Yes [id number] 1{capsu Take 1 Univers P-FA-Vit B 2-11 le} capsule by ity of & C No.9 00:00: mouth [place] (INTEGRA daily. Medical PLUS) 125 Branch mg iron- 1 mg Cap Iron Fum & 2021-02 Yes [id number] 1{capsu Take 1 Univers P-FA-Vit B 2-11 le} capsule by ity of & C No.9 00:00: mouth [place] (INTEGRA daily. Medical PLUS) 125 Branch mg iron- 1 mg Cap Iron Fum & 2021-02 Yes [id number] 1{capsu Take 1 Univers P-FA-Vit B 2-11 le} capsule by ity of & C No.9 00:00: mouth [place] (INTEGRA daily. Medical PLUS) 125 Branch mg iron- 1 mg Cap Iron Fum & 2021-02 Yes [id number] 1{capsu Take 1 Univers P-FA-Vit B 2-11 le} capsule by ity of & C No.9 00:00: mouth [place] (INTEGRA daily. Medical PLUS) 125 Branch mg iron- 1 mg Cap Iron Fum & 2021-02 Yes [id number] 1{capsu Take 1 Univers P-FA-Vit B 2-11 le} capsule by ity of & C No.9 00:00: mouth [place] (INTEGRA daily. Medical PLUS) 125 Branch mg iron- 1 mg Cap Iron Fum & 2021-02 Yes [id number] 1{capsu Take 1 Univers P-FA-Vit B 2-11 le} capsule by ity of & C No.9 00:00: mouth [place] (INTEGRA daily. Medical PLUS) 125 Branch mg iron- 1 mg Cap Iron Fum & 2021-02 Yes [id number] 1{capsu Take 1 Univers P-FA-Vit B 2-11 le} capsule by ity of & C No.9 00:00: mouth [place] (INTEGRA daily. Medical PLUS) 125 Branch mg iron- 1 mg Cap Iron Fum & 2021-02 Yes [id number] 1{capsu Take 1 Univers P-FA-Vit B 2-11 le} capsule by ity of & C No.9 00:00: mouth [place] (INTEGRA daily. Medical PLUS) 125 Branch mg iron- 1 mg Cap Iron Fum & 2021-02 Yes [id number] 1{capsu Take 1 Univers P-FA-Vit B 2-11 le} capsule by ity of & C No.9 00:00: mouth [place] (INTEGRA daily. Medical PLUS) 125 Branch mg iron- 1 mg Cap Iron Fum & 2021-02 Yes [id number] 1{capsu Take 1 Univers P-FA-Vit B 2-11 le} capsule by ity of & C No.9 00:00: mouth [place] (INTEGRA daily. Medical PLUS) 125 Branch mg iron- 1 mg Cap Iron Fum & 2021-02 Yes [id number] 1{capsu Take 1 Univers P-FA-Vit B 2-11 le} capsule by ity of & C No.9 00:00: mouth [place] (INTEGRA daily. Medical PLUS) 125 Branch mg iron- 1 mg Cap Iron Fum & 2021-02 Yes [id number] 1{capsu Take 1 Univers P-FA-Vit B 2-11 le} capsule by ity of & C No.9 00:00: mouth [place] (INTEGRA daily. Medical PLUS) 125 Branch mg iron- 1 mg Cap Iron Fum & 2021-02 Yes [id number] 1{capsu Take 1 Univers P-FA-Vit B 2-11 le} capsule by ity of & C No.9 00:00: mouth [place] (INTEGRA daily. Medical PLUS) 125 Branch mg iron- 1 mg Cap Iron Fum & 2021-02 Yes [id number] 1{capsu Take 1 Univers P-FA-Vit B 2-11 le} capsule by ity of & C No.9 00:00: mouth [place] (INTEGRA daily. Medical PLUS) 125 Branch mg iron- 1 mg Cap Iron Fum & 2021-02 Yes [id number] 1{capsu Take 1 Univers P-FA-Vit B 2-11 le} capsule by ity of & C No.9 00:00: mouth [place] (INTEGRA daily. Medical PLUS) 125 Branch mg iron- 1 mg Cap Iron Fum & 2021-02 Yes [id number] 1{capsu Take 1 Univers P-FA-Vit B 2-11 le} capsule by ity of & C No.9 00:00: mouth [place] (INTEGRA daily. Medical PLUS) 125 Branch mg iron- 1 mg Cap Iron Fum & 2021-02 Yes [id number] 1{capsu Take 1 Univers P-FA-Vit B 2-11 le} capsule by ity of & C No.9 00:00: mouth [place] (INTEGRA daily. Medical PLUS) 125 Branch mg iron- 1 mg Cap Iron Fum & 2021-02 Yes [id number] 1{capsu Take 1 Univers P-FA-Vit B 2-11 le} capsule by ity of & C No.9 00:00: mouth [place] (INTEGRA daily. Medical PLUS) 125 Branch mg iron- 1 mg Cap Iron Fum & 2021-02 Yes [id number] 1{capsu Take 1 Univers P-FA-Vit B 2-11 le} capsule by ity of & C No.9 00:00: mouth [place] (INTEGRA 00 daily. Medical PLUS) 125 Branch mg iron- 1 mg Cap Iron Fum & 2021-02- No [id number] 1{capsu Take 1 Univers P-FA-Vit B 2-11 03-04 le} capsule by it y of & C No.9 00:00: 00:00 mouth [place] (INTEGRA 00 :00 daily. Medical PLUS) 125 Branch mg iron- 1 mg Cap Iron Fum & 2021-02- No [id number] 1{capsu Take 1 Univers P-FA-Vit B 2-11 03-04 le} capsule by it y of & C No.9 00:00: 00:00 mouth [place] (INTEGRA 00 :00 daily. Medical PLUS) 125 Branch mg iron- 1 mg Cap acetaminoph 2021-02 Yes 1000mg 1,000 mg, Univers en 0-19 Oral, ity of (TYLENOL) 01:26: Q6HPRN, [place] tablet 00 Starting Medical 1,000 mg on Thu Branch 12/10/21 at 2025, Until Discontinu ed, Routine, Pain (scale 4-6) 2021-02 Yes Take by Univer s vit 0-18 mouth. ity of no.124/iron 21:44: [place] /folic 23 Medical ( Branch VITAMIN ORAL) 2021-02 Yes Take by Univer s vit 0-18 mouth. ity of no.124/iron 21:44: [place] /folic 23 Medical ( Branch VITAMIN ORAL) 2021-02 Yes Take by Univer s vit 0-18 mouth. ity of no.124/iron 21:44: [place] /folic 23 Medical ( Branch VITAMIN ORAL) 2021-02 Yes Take by Univer s vit 0-18 mouth. ity of no.124/iron 21:44: [place] /folic 23 Medical ( Branch VITAMIN ORAL) 2021-02 Yes Take by Univer s vit 0-18 mouth. ity of no.124/iron 21:44: [place] /folic 23 Medical ( Branch VITAMIN ORAL) 2021-02 Yes Take by Univer s vit 0-18 mouth. ity of no.124/iron 21:44: [place] /folic 23 Medical ( Branch VITAMIN ORAL) montelukast 2021- No [id number] 10mg Take 1 Univers 10 mg 10-24 103 tablet by ity of tablet 00:00: 05:59 mouth [place] 00 :00 every Medical evening Branch for 90 days. montelukast 2021- No [id number] 10mg Take 1 Univers 10 mg 10-24 103 tablet by ity of tablet 00:00: 05:59 mouth [place] 00 :00 every Medical evening Branch for 90 days. montelukast 2021- No [id number] 10mg Take 1 Univers 10 mg 10-24 103 tablet by ity of tablet 00:00: 05:59 mouth [place] 00 :00 every Medical evening Branch for 90 days. montelukast 2021- No [id number] 10mg Take 1 Univers 10 mg 10-24 103 tablet by ity of tablet 00:00: 05:59 mouth [place] 00 :00 every Medical evening Branch for 90 days. montelukast 2021- No [id number] 10mg Take 1 [facility] 10 mg 10-24 103 tablet by ity of tablet 00:00: 05:59 mouth [place] 00 :00 every Medical evening Branch for 90 days. montelukast 2021- No [id number] 10mg Take 1 Univers 10 mg 10-24 103 tablet by ity of tablet 00:00: 05:59 mouth [place] 00 :00 every Medical evening Branch for 90 days. montelukast 2021- No [id number] 10mg Take 1 [facility] 10 mg 10-24 103 tablet by ity of tablet 00:00: 05:59 mouth [place] 00 :00 every Medical evening Branch for 90 days. montelukast 2021- No [id number] 10mg Take 1 [facility] 10 mg 10-24 103 tablet by ity of tablet 00:00: 05:59 mouth [place] 00 :00 every Medical evening Branch for 90 days. montelukast 2021- No [id number] 10mg Take 1 Univers 10 mg 10-24 103 tablet by ity of tablet 00:00: 05:59 mouth [place] 00 :00 every Medical evening Branch for 90 days. montelukast 2021- No [id number] 10mg Take 1 [facility] 10 mg 10-24 103 tablet by ity of tablet 00:00: 05:59 mouth [place] 00 :00 every Medical evening Branch for 90 days. montelukast 2021- No [id number] 10mg Take 1 [facility] 10 mg 10-24 103 tablet by ity of tablet 00:00: 05:59 mouth [place] 00 :00 every Medical evening Branch for 90 days. montelukast 2021- No [id number] 10mg Take 1 [facility] 10 mg 10-24 103 tablet by ity of tablet 00:00: 05:59 mouth [place] 00 :00 every Medical evening Branch for 90 days. PNV 67-iron Yes [id number] 1{each} Take 1 Univers ps-folate 8-26 Each by ity of no.1-dha 00:00: mouth [place] (VITAFOL 00 daily. Medical ULTRA) 29 Branch mg iron- 1 mg-200 mg Cap PNV 67-iron 0 Yes [id number] 1{each} Take 1 Univers ps-folate 8-26 Each by ity of no.1-dha 00:00: mouth [place] (VITAFOL 00 daily. Medical ULTRA) 29 Branch mg iron- 1 mg-200 mg Cap PNV 67-iron 0 Yes [id number] 1{each} Take 1 Univers ps-folate 8-26 Each by ity of no.1-dha 00:00: mouth [place] (VITAFOL 00 daily. Medical ULTRA) 29 Branch mg iron- 1 mg-200 mg Cap PNV 67-iron 2021-0 Yes [id number] 1{each} Take 1 [facility] ps-folate 8-26 Each by ity of no.1-dha 00:00: mouth [place] (VITAFOL 00 daily. Medical ULTRA) 29 Branch mg iron- 1 mg-200 mg Cap PNV 67-iron 2021-0 Yes [id number] 1{each} Take 1 Univers ps-folate 8-26 Each by ity of no.1-dha 00:00: mouth [place] (VITAFOL 00 daily. Medical ULTRA) 29 Branch mg iron- 1 mg-200 mg Cap PNV 67-iron 2-0 Yes [id number] 1{each} Take 1 Univers ps-folate 8-26 Each by ity of no.1-dha 00:00: mouth [place] (VITAFOL 00 daily. Medical ULTRA) 29 Branch mg iron- 1 mg-200 mg Cap PNV 67-iron 2-0 Yes [id number] 1{each} Take 1 Univers ps-folate 8-26 Each by ity of no.1-dha 00:00: mouth [place] (VITAFOL 00 daily. Medical ULTRA) 29 Branch mg iron- 1 mg-200 mg Cap PNV 67-iron 2-0 Yes [id number] 1{each} Take 1 Univers ps-folate 8-26 Each by ity of no.1-dha 00:00: mouth [place] (VITAFOL 00 daily. Medical ULTRA) 29 Branch mg iron- 1 mg-200 mg Cap PNV 67-iron 2-0 Yes [id number] 1{each} Take 1 Univers ps-folate 8-26 Each by ity of no.1-dha 00:00: mouth [place] (VITAFOL 00 daily. Medical ULTRA) 29 Branch mg iron- 1 mg-200 mg Cap PNV 67-iron 2-0 Yes [id number] 1{each} Take 1 Univers ps-folate 8-26 Each by ity of no.1-dha 00:00: mouth [place] (VITAFOL 00 daily. Medical ULTRA) 29 Branch mg iron- 1 mg-200 mg Cap PNV 67-iron 2-0 Yes [id number] 1{each} Take 1 Univers ps-folate 8-26 Each by ity of no.1-dha 00:00: mouth [place] (VITAFOL 00 daily. Medical ULTRA) 29 Branch mg iron- 1 mg-200 mg Cap PNV 67-iron 2-0 Yes [id number] 1{each} Take 1 Univers ps-folate 8-26 Each by ity of no.1-dha 00:00: mouth [place] (VITAFOL 00 daily. Medical ULTRA) 29 Branch mg iron- 1 mg-200 mg Cap PNV 67-iron 2-0 Yes [id number] 1{each} Take 1 Univers ps-folate 8-26 Each by ity of no.1-dha 00:00: mouth [place] (VITAFOL 00 daily. Medical ULTRA) 29 Branch mg iron- 1 mg-200 mg Cap PNV 67-iron 2-0 Yes [id number] 1{each} Take 1 [facility] ps-folate 8-26 Each by ity of no.1-dha 00:00: mouth [place] (VITAFOL 00 daily. Medical ULTRA) 29 Branch mg iron- 1 mg-200 mg Cap PNV 67-iron 2-0 Yes [id number] 1{each} Take 1 [facility] ps-folate 8-26 Each by ity of no.1-dha 00:00: mouth [place] (VITAFOL 00 daily. Medical ULTRA) 29 Branch mg iron- 1 mg-200 mg Cap PNV 67-iron 2-0 Yes [id number] 1{each} Take 1 [facility] ps-folate 8-26 Each by ity of no.1-dha 00:00: mouth [place] (VITAFOL 00 daily. Medical ULTRA) 29 Branch mg iron- 1 mg-200 mg Cap PNV 67-iron 2-0 Yes [id number] 1{each} Take 1 [facility] ps-folate 8-26 Each by ity of no.1-dha 00:00: mouth [place] (VITAFOL 00 daily. Medical ULTRA) 29 Branch mg iron- 1 mg-200 mg Cap PNV 67-iron 2-0 Yes [id number] 1{each} Take 1 [facility] ps-folate 8-26 Each by ity of no.1-dha 00:00: mouth [place] (VITAFOL 00 daily. Medical ULTRA) 29 Branch mg iron- 1 mg-200 mg Cap PNV 67-iron 2-0 Yes [id number] 1{each} Take 1 [facility] ps-folate 8-26 Each by ity of no.1-dha 00:00: mouth [place] (VITAFOL 00 daily. Medical ULTRA) 29 Branch mg iron- 1 mg-200 mg Cap PNV 67-iron 2-0 Yes [id number] 1{each} Take 1 [facility] ps-folate 8-26 Each by ity of no.1-dha 00:00: mouth [place] (VITAFOL 00 daily. Medical ULTRA) 29 Branch mg iron- 1 mg-200 mg Cap PNV 67-iron 2022-0 Yes [id number] 1{each} Take 1 [facility] ps-folate 8-26 Each by ity of no.1-dha 00:00: mouth [place] (VITAFOL 00 daily. Medical ULTRA) 29 Branch mg iron- 1 mg-200 mg Cap PNV 67-iron 2-0 Yes [id number] 1{each} Take 1 [facility] ps-folate 8-26 Each by ity of no.1-dha 00:00: mouth [place] (VITAFOL 00 daily. Medical ULTRA) 29 Branch mg iron- 1 mg-200 mg Cap PNV 67-iron 2-0 Yes [id number] 1{each} Take 1 [facility] ps-folate 8-26 Each by ity of no.1-dha 00:00: mouth [place] (VITAFOL 00 daily. Medical ULTRA) 29 Branch mg iron- 1 mg-200 mg Cap PNV 67-iron 2-0 Yes [id number] 1{each} Take 1 [facility] ps-folate 8-26 Each by ity of no.1-dha 00:00: mouth [place] (VITAFOL 00 daily. Medical ULTRA) 29 Branch mg iron- 1 mg-200 mg Cap PNV 67-iron 2-0 Yes [id number] 1{each} Take 1 [facility] ps-folate 8-26 Each by ity of no.1-dha 00:00: mouth [place] (VITAFOL 00 daily. Medical ULTRA) 29 Branch mg iron- 1 mg-200 mg Cap PNV 67-iron 2-0 Yes [id number] 1{each} Take 1 [facility] ps-folate 8-26 Each by ity of no.1-dha 00:00: mouth [place] (VITAFOL 00 daily. Medical ULTRA) 29 Branch mg iron- 1 mg-200 mg Cap PNV 67-iron 2-0 Yes [id number] 1{each} Take 1 [facility] ps-folate 8-26 Each by ity of no.1-dha 00:00: mouth [place] (VITAFOL 00 daily. Medical ULTRA) 29 Branch mg iron- 1 mg-200 mg Cap PNV 67-iron 2-0 Yes [id number] 1{each} Take 1 [facility] ps-folate 8-26 Each by ity of no.1-dha 00:00: mouth [place] (VITAFOL 00 daily. Medical ULTRA) 29 Branch mg iron- 1 mg-200 mg Cap PNV 67-iron 2022-0 Yes [id number] 1{each} Take 1 [facility] ps-folate 8-26 Each by ity of no.1-dha 00:00: mouth [place] (VITAFOL 00 daily. Medical ULTRA) 29 Branch mg iron- 1 mg-200 mg Cap PNV 67-iron 2-0 Yes [id number] 1{each} Take 1 [facility] ps-folate 8-26 Each by ity of no.1-dha 00:00: mouth [place] (VITAFOL 00 daily. Medical ULTRA) 29 Branch mg iron- 1 mg-200 mg Cap PNV 67-iron 2-0 Yes [id number] 1{each} Take 1 [facility] ps-folate 8-26 Each by ity of no.1-dha 00:00: mouth [place] (VITAFOL 00 daily. Medical ULTRA) 29 Branch mg iron- 1 mg-200 mg Cap PNV 67-iron 2-0 Yes [id number] 1{each} Take 1 [facility] ps-folate 8-26 Each by ity of no.1-dha 00:00: mouth [place] (VITAFOL 00 daily. Medical ULTRA) 29 Branch mg iron- 1 mg-200 mg Cap PNV 67-iron 2-0 Yes [id number] 1{each} Take 1 [facility] ps-folate 8-26 Each by ity of no.1-dha 00:00: mouth [place] (VITAFOL 00 daily. Medical ULTRA) 29 Branch mg iron- 1 mg-200 mg Cap PNV 67-iron 2-0 Yes [id number] 1{each} Take 1 [facility] ps-folate 8-26 Each by ity of no.1-dha 00:00: mouth [place] (VITAFOL 00 daily. Medical ULTRA) 29 Branch mg iron- 1 mg-200 mg Cap PNV 67-iron 2-0 Yes [id number] 1{each} Take 1 [facility] ps-folate 8-26 Each by ity of no.1-dha 00:00: mouth [place] (VITAFOL 00 daily. Medical ULTRA) 29 Branch mg iron- 1 mg-200 mg Cap PNV 67-iron 2-0 Yes [id number] 1{each} Take 1 [facility] ps-folate 8-26 Each by ity of no.1-dha 00:00: mouth [place] (VITAFOL 00 daily. Medical ULTRA) 29 Branch mg iron- 1 mg-200 mg Cap PNV 67-iron 2-0 Yes [id number] 1{each} Take 1 [facility] ps-folate 8-26 Each by ity of no.1-dha 00:00: mouth [place] (VITAFOL 00 daily. Medical ULTRA) 29 Branch mg iron- 1 mg-200 mg Cap PNV 67-iron 2-0 Yes [id number] 1{each} Take 1 [facility] ps-folate 8-26 Each by ity of no.1-dha 00:00: mouth [place] (VITAFOL 00 daily. Medical ULTRA) 29 Branch mg iron- 1 mg-200 mg Cap PNV 67-iron 2-0 Yes [id number] 1{each} Take 1 [facility] ps-folate 8-26 Each by ity of no.1-dha 00:00: mouth [place] (VITAFOL 00 daily. Medical ULTRA) 29 Branch mg iron- 1 mg-200 mg Cap PNV 67-iron 2-0 Yes [id number] 1{each} Take 1 [facility] ps-folate 8-26 Each by ity of no.1-dha 00:00: mouth [place] (VITAFOL 00 daily. Medical ULTRA) 29 Branch mg iron- 1 mg-200 mg Cap PNV 67-iron 2-0 Yes [id number] 1{each} Take 1 [facility] ps-folate 8-26 Each by ity of no.1-dha 00:00: mouth [place] (VITAFOL 00 daily. Medical ULTRA) 29 Branch mg iron- 1 mg-200 mg Cap PNV 67-iron 2-0 Yes [id number] 1{each} Take 1 [facility] ps-folate 8-26 Each by ity of no.1-dha 00:00: mouth [place] (VITAFOL 00 daily. Medical ULTRA) 29 Branch mg iron- 1 mg-200 mg Cap PNV 67-iron 2-0 Yes [id number] 1{each} Take 1 [facility] ps-folate 8-26 Each by ity of no.1-dha 00:00: mouth [place] (VITAFOL 00 daily. Medical ULTRA) 29 Branch mg iron- 1 mg-200 mg Cap PNV 67-iron 2-0 Yes [id number] 1{each} Take 1 [facility] ps-folate 8-26 Each by ity of no.1-dha 00:00: mouth [place] (VITAFOL 00 daily. Medical ULTRA) 29 Branch mg iron- 1 mg-200 mg Cap PNV 67-iron 2-0 Yes [id number] 1{each} Take 1 [facility] ps-folate 8-26 Each by ity of no.1-dha 00:00: mouth [place] (VITAFOL 00 daily. Medical ULTRA) 29 Branch mg iron- 1 mg-200 mg Cap PNV 67-iron 2022- No [id number] 1{each} Take 1 Univers ps-folate 10-18- Each by ity of no.1-dha 00:00: 00:00 mouth [place] (VITAFOL 00 :00 daily. Medical ULTRA) 29 Branch mg iron- 1 mg-200 mg Cap PNV 67-iron 2022- No [id number] 1{each} Take 1 [facility] ps-folate 10-18- Each by ity of no.1-dha 00:00: 00:00 mouth [place] (VITAFOL 00 :00 daily. Medical ULTRA) 29 Branch mg iron- 1 mg-200 mg Cap Budesonide Yes [id number] 1{puff} Inhale 1 Univers 90 8-08 103 Puff in ity of mcg/actuati 00:00: the [place] on aerosol 00 morning Medica l powder and 1 Puff Branch in the evening. Budesonide Yes [id number] 1{puff} Inhale 1 Univers 90 8-08 103 Puff in ity of mcg/actuati 00:00: the [place] on aerosol 00 morning Medica l powder and 1 Puff Branch in the evening. Budesonide Yes [id number] 1{puff} Inhale 1 Univers 90 8-08 103 Puff in ity of mcg/actuati 00:00: the [place] on aerosol 00 morning Medica l powder and 1 Puff Branch in the evening. Budesonide Yes [id number] 1{puff} Inhale 1 Univers 90 8-08 103 Puff in ity of mcg/actuati 00:00: the [place] on aerosol 00 morning Medica l powder and 1 Puff Branch in the evening. Budesonide Yes [id number] 1{puff} Inhale 1 Univers 90 8-08 103 Puff in ity of mcg/actuati 00:00: the [place] on aerosol 00 morning Medica l powder and 1 Puff Branch in the evening. Budesonide Yes [id number] 1{puff} Inhale 1 Univers 90 8-08 103 Puff in ity of mcg/actuati 00:00: the on aerosol 00 morning Medica l powder and 1 Puff Branch in the evening. Budesonide Yes [id number] 1{puff} Inhale 1 Univers 90 8-08 103 Puff in ity of mcg/actuati 00:00: the on aerosol 00 morning Medica l powder and 1 Puff Branch in the evening. Budesonide Yes [id number] 1{puff} Inhale 1 Univers 90 8-08 103 Puff in ity of mcg/actuati 00:00: the on aerosol morning Medica l powder and 1 Puff Branch in the evening. Budesonide Yes [id number] 1{puff} Inhale 1 Univers 90 8-08 103 Puff in ity of mcg/actuati 00:00: the [place] on aerosol morning Medica l powder and 1 Puff Branch in the evening. Budesonide Yes [id number] 1{puff} Inhale 1 Univers 90 8-08 103 Puff in ity of mcg/actuati 00:00: the [place] on aerosol morning Medica l powder and 1 Puff Branch in the evening. Budesonide Yes [id number] 1{puff} Inhale 1 Univers 90 8-08 103 Puff in ity of mcg/actuati 00:00: the [place] on aerosol morning Medica l powder and 1 Puff Branch in the evening. Budesonide Yes [id number] 1{puff} Inhale 1 Univers 90 8-08 103 Puff in ity of mcg/actuati 00:00: the on aerosol morning Medica l powder and 1 Puff Branch in the evening. Budesonide Yes [id number] 1{puff} Inhale 1 Univers 90 8-08 103 Puff in ity of mcg/actuati 00:00: the on aerosol 00 morning Medica l powder and 1 Puff Branch in the evening. Budesonide Yes [id number] 1{puff} Inhale 1 Univers 90 8-08 103 Puff in ity of mcg/actuati 00:00: the on aerosol 00 morning Medica l powder and 1 Puff Branch in the evening. Budesonide Yes [id number] 1{puff} Inhale 1 Univers 90 8-08 103 Puff in ity of mcg/actuati 00:00: the [place] on aerosol 00 morning Medica l powder and 1 Puff Branch in the evening. Budesonide Yes [id number] 1{puff} Inhale 1 Univers 90 8-08 103 Puff in ity of mcg/actuati 00:00: the on aerosol 00 morning Medica l powder and 1 Puff Branch in the evening. Budesonide Yes [id number] 1{puff} Inhale 1 Univers 90 8-08 103 Puff in ity of mcg/actuati 00:00: the on aerosol 00 morning Medica l powder and 1 Puff Branch in the evening. Budesonide Yes [id number] 1{puff} Inhale 1 Univers 90 8-08 103 Puff in ity of mcg/actuati 00:00: the [place] on aerosol morning Medica l powder and 1 Puff Branch in the evening. Budesonide Yes [id number] 1{puff} Inhale 1 Univers 90 8-08 103 Puff in ity of mcg/actuati 00:00: the [place] on aerosol 00 morning Medica l powder and 1 Puff Branch in the evening. Budesonide Yes [id number] 1{puff} Inhale 1 Univers 90 8-08 103 Puff in ity of mcg/actuati 00:00: the [place] on aerosol morning Medica l powder and 1 Puff Branch in the evening. Budesonide Yes [id number] 1{puff} Inhale 1 Univers 90 8-08 103 Puff in ity of mcg/actuati 00:00: the [place] on aerosol 00 morning Medica l powder and 1 Puff Branch in the evening. Budesonide Yes [id number] 1{puff} Inhale 1 Univers 90 8-08 103 Puff in ity of mcg/actuati 00:00: the [place] on aerosol 00 morning Medica l powder and 1 Puff Branch in the evening. Budesonide Yes [id number] 1{puff} Inhale 1 Univers 90 8-08 103 Puff in ity of mcg/actuati 00:00: the on aerosol 00 morning Medica l powder and 1 Puff Branch in the evening. Budesonide Yes [id number] 1{puff} Inhale 1 Univers 90 8-08 103 Puff in ity of mcg/actuati 00:00: the on aerosol morning Medica l powder and 1 Puff Branch in the evening. Budesonide Yes [id number] 1{puff} Inhale 1 Univers 90 8-08 103 Puff in ity of mcg/actuati 00:00: the on aerosol morning Medica l powder and 1 Puff Branch in the evening. Budesonide Yes [id number] 1{puff} Inhale 1 Univers 90 8-08 103 Puff in ity of mcg/actuati 00:00: the [place] on aerosol morning Medica l powder and 1 Puff Branch in the evening. Budesonide Yes [id number] 1{puff} Inhale 1 Univers 90 8-08 103 Puff in ity of mcg/actuati 00:00: the on aerosol morning Medica l powder and 1 Puff Branch in the evening. Budesonide Yes [id number] 1{puff} Inhale 1 Univers 90 8-08 103 Puff in ity of mcg/actuati 00:00: the on aerosol morning Medica l powder and 1 Puff Branch in the evening. Budesonide Yes [id number] 1{puff} Inhale 1 Univers 90 8-08 103 Puff in ity of mcg/actuati 00:00: the on aerosol morning Medica l powder and 1 Puff Branch in the evening. Budesonide Yes [id number] 1{puff} Inhale 1 Univers 90 8-08 103 Puff in ity of mcg/actuati 00:00: the on aerosol 00 morning Medica l powder and 1 Puff Branch in the evening. Budesonide Yes [id number] 1{puff} Inhale 1 Univers 90 8-08 103 Puff in ity of mcg/actuati 00:00: the on aerosol morning Medica l powder and 1 Puff Branch in the evening. Budesonide Yes [id number] 1{puff} Inhale 1 Univers 90 8-08 103 Puff in ity of mcg/actuati 00:00: the on aerosol 00 morning Medica l powder and 1 Puff Branch in the evening. Budesonide Yes [id number] 1{puff} Inhale 1 Univers 90 8-08 103 Puff in ity of mcg/actuati 00:00: the on aerosol 00 morning Medica l powder and 1 Puff Branch in the evening. Budesonide Yes [id number] 1{puff} Inhale 1 Univers 90 8-08 103 Puff in ity of mcg/actuati 00:00: the [place] on aerosol 00 morning Medica l powder and 1 Puff Branch in the evening. Budesonide Yes [id number] 1{puff} Inhale 1 Univers 90 8-08 103 Puff in ity of mcg/actuati 00:00: the [place] on aerosol morning Medica l powder and 1 Puff Branch in the evening. Budesonide Yes [id number] 1{puff} Inhale 1 Univers 90 8-08 103 Puff in ity of mcg/actuati 00:00: the [place] on aerosol morning Medica l powder and 1 Puff Branch in the evening. Budesonide Yes [id number] 1{puff} Inhale 1 Univers 90 8-08 103 Puff in ity of mcg/actuati 00:00: the [place] on aerosol morning Medica l powder and 1 Puff Branch in the evening. Budesonide Yes [id number] 1{puff} Inhale 1 Univers 90 8-08 103 Puff in ity of mcg/actuati 00:00: the [place] on aerosol 00 morning Medica l powder and 1 Puff Branch in the evening. Budesonide Yes [id number] 1{puff} Inhale 1 Univers 90 8-08 103 Puff in ity of mcg/actuati 00:00: the [place] on aerosol 00 morning Medica l powder and 1 Puff Branch in the evening. Budesonide Yes [id number] 1{puff} Inhale 1 Univers 90 8-08 103 Puff in ity of mcg/actuati 00:00: the [place] on aerosol 00 morning Medica l powder and 1 Puff Branch in the evening. Budesonide Yes [id number] 1{puff} Inhale 1 Univers 90 8-08 103 Puff in ity of mcg/actuati 00:00: the [place] on aerosol 00 morning Medica l powder and 1 Puff Branch in the evening. Budesonide Yes [id number] 1{puff} Inhale 1 Univers 90 8-08 103 Puff in ity of mcg/actuati 00:00: the [place] on aerosol 00 morning Medica l powder and 1 Puff Branch in the evening. Budesonide Yes [id number] 1{puff} Inhale 1 Univers 90 8-08 103 Puff in ity of mcg/actuati 00:00: the [place] on aerosol 00 morning Medica l powder and 1 Puff Branch in the evening. Budesonide Yes [id number] 1{puff} Inhale 1 Univers 90 8-08 103 Puff in ity of mcg/actuati 00:00: the [place] on aerosol 00 morning Medica l powder and 1 Puff Branch in the evening. Budesonide Yes [id number] 1{puff} Inhale 1 Univers 90 8-08 103 Puff in ity of mcg/actuati 00:00: the [place] on aerosol 00 morning Medica l powder and 1 Puff Branch in the evening. Budesonide 2022- No [id number] 1{puff} Inhale 1 Univers 90 8-08 03-04 103 Puff in ity of mcg/actuati 00:00: 00:00 the [place] on aerosol 00 :00 morning Medica l powder and 1 Puff Branch in the evening. Budesonide 2022- No [id number] 1{puff} Inhale 1 Univers 90 8-08 03-04 103 Puff in ity of mcg/actuati 00:00: 00:00 the [place] on aerosol 00 :00 morning Medica l powder and 1 Puff Branch in the evening. Yes Take by [facility] [place] [facility] s vit 7-11 mouth. ity of no.124/iron 15:57: [place] /folic 30 Medical ( Branch VITAMIN ORAL) Yes Take by Univer s vit 7-11 mouth. ity of no.124/iron 15:57: [place] /folic 30 Medical ( Branch VITAMIN ORAL) Yes Take by Univer s vit 7-11 mouth. ity of no.124/iron 15:57: [place] /folic 30 Medical ( Branch VITAMIN ORAL) Yes Take by Univer s vit 7-11 mouth. ity of no.124/iron 15:57: [place] /folic 30 Medical ( Branch VITAMIN ORAL) Yes Take by Univer s vit 7-11 mouth. ity of no.124/iron 15:57: [place] /folic 30 Medical ( Branch VITAMIN ORAL) Yes Take by Univer s vit 7-11 mouth. ity of no.124/iron 15:57: [place] /folic 30 Medical ( Branch VITAMIN ORAL) Yes Take by Univer s vit 7-11 mouth. ity of no.124/iron 15:57: [place] /folic 30 Medical ( Branch VITAMIN ORAL) Yes Take by Univer s vit 7-11 mouth. ity of no.124/iron 15:57: [place] /folic 30 Medical ( Branch VITAMIN ORAL) Yes Take by Univer s vit 7-11 mouth. ity of no.124/iron 15:57: [place] /folic 30 Medical ( Branch VITAMIN ORAL) Immunizations Ordered Filled Immunization Date Status Comments [facility] e Immunization Name Name HPV9 2022-04-26 Completed University of 00:00:00 [facility] Varicella 2022-04-26 Completed University of (varivax)(chicken 00:00:00 [place] [facility] pox) Branch HPV9 2022-04-26 Completed University of 00:00:00 [facility] Varicella 2022-04-26 Completed University of (varivax)(chicken 00:00:00 [place] [facility] pox) Branch HPV9 2022-04-26 Completed University of 00:00:00 [facility] Varicella 2022-04-26 Completed University of (varivax)(chicken 00:00:00 [place] M edical pox) Branch TDAP 2022-01-31 Completed University of 00:00:00 [facility] TDAP 2022-01-31 Completed University of 00:00:00 [place] [facility] TDAP 2022-01-31 Completed University of 00:00:00 [place] [facility] TDAP 2022-01-31 Completed University of 00:00:00 [place] [facility] TDAP 2022-01-31 Completed University of 00:00:00 [place] [facility] TDAP 2022-01-31 Completed University of 00:00:00 [place] [facility] TDAP 2022-01-31 Completed University of 00:00:00 [place] [facility] TDAP 2022-01-31 Completed University of 00:00:00 [place] [facility] TDAP 2022-01-31 Completed University of 00:00:00 [place] [facility] TDAP 2022-01-31 Completed University of 00:00:00 [place] [facility] TDAP 2022-01-31 Completed University of 00:00:00 [place] [facility] TDAP 2022-01-31 Completed University of 00:00:00 [place] [facility] TDAP 2022-01-31 Completed University of 00:00:00 [place] [facility] TDAP 2022-01-31 Completed University of 00:00:00 [place] [facility] TDAP 2022-01-31 Completed University of 00:00:00 [place] [facility] TDAP 2022-01-31 Completed University of 00:00:00 [place] [facility] TDAP 2022-01-31 Completed University of 00:00:00 [place] [facility] TDAP 2022-01-31 Completed University of 00:00:00 [place] [facility] TDAP 2022-01-31 Completed University of 00:00:00 [place] [facility] TDAP 2022-01-31 Completed University of 00:00:00 [place] [facility] TDAP 2022-01-31 Completed University of 00:00:00 [place] [facility] TDAP 2022-01-31 Completed University of 00:00:00 [place] [facility] TDAP 2022-01-31 Completed University of 00:00:00 [place] [facility] TDAP 2022-01-31 Completed University of 00:00:00 [place] [facility] TDAP 2022-01-31 Completed University of 00:00:00 [place] [facility] TDAP 2022-01-31 Completed University of 00:00:00 [place] [facility] TDAP 2022-01-31 Completed University of 00:00:00 [place] [facility] TDAP 2022-01-31 Completed University of 00:00:00 [place] [facility] TDAP 2022-01-31 Completed University of 00:00:00 [place] [facility] TDAP 2022-01-31 Completed University of 00:00:00 [place] [facility] TDAP 2022-01-31 Completed University of 00:00:00 [place] [facility] TDAP 2022-01-31 Completed University of 00:00:00 [place] [facility] TDAP 2022-01-31 Completed University of 00:00:00 [place] [facility] TDAP 2022-01-31 Completed University of 00:00:00 [place] [facility] TDAP 2022-01-31 Completed University of 00:00:00 [place] [facility] TDAP 2022-01-31 Completed University of 00:00:00 [facility] Vital Signs Vital Name Observation Time Observation Value Comments Source Systolic blood 2022-05-02 15:48:00 130 mm[Hg] manual Univer sity of pressure [facility] Diastolic blood 2022-05-02 15:48:00 92 mm[Hg] manual Unive rsity of pressure [facility] Heart rate 2022-05-02 15:40:00 86 /min Universi ty [facility] Body temperature 2022-05-02 15:40:00 36.72 [place] Respiratory rate 2022-05-02 15:40:00 20 /min [facility] Body height 2022-05-02 15:40:00 157.5 cm [facility] Body weight 2022-05-02 15:40:00 59.33 kg [facility] BMI 2022-05-02 15:40:00 23.92 kg/m2 [facility] Systolic blood 2022-04-27 02:33:00 136 mm[Hg] Univer sity of pressure [facility] Diastolic blood 2022-04-27 02:33:00 86 mm[Hg] Unive rsity of pressure [facility] Heart rate 2022-04-27 02:33:00 90 /min [facility]i [facility] Body temperature 2022-04-27 02:33:00 35.83 [facility] Respiratory rate 2022-04-27 02:33:00 18 /min [facility] Oxygen saturation in 2022-04-27 02:33:00 95 /min University of Arterial blood by [facility] Pulse oximetry Branch Body weight 2022-04-24 00:00:00 67.132 kg Universi ty [facility] [place] [facility] BMI 2022-04-24 00:00:00 27.07 kg/m2 [facility] [place] [facility] Heart rate 2022-04-25 08:30:00 120 /min [facility] [place] [facility] Oxygen saturation in 2022-04-25 08:30:00 100 /min University of Arterial blood by [facility] Pulse oximetry Branch Systolic blood 2022-04-25 08:20:00 128 mm[Hg] Univer sity of pressure [place] [facility] Diastolic blood 2022-04-25 08:20:00 81 mm[Hg] Unive rsity of [facility] [place] Body temperature 2022-04-25 08:00:00 37.28 Marycruz Univ ersity of [place] [facility] Respiratory rate 2022-04-25 08:00:00 16 /min Univ ersity of [place] [facility] Body weight 2022-04-24 00:00:00 67.132 kg [facility]i [facility] [place] [facility] BMI 2022-04-24 00:00:00 27.07 kg/m2 [facility] [place] [facility] Systolic blood 2022-04-23 14:03:00 134 mm[Hg] Univer sity of pressure [place] [facility] Diastolic blood 2022-04-23 14:03:00 86 mm[Hg] Unive rsity of [facility] Heart rate 2022-04-23 14:00:00 72 /min [facility]i [facility] [place] [facility] Body temperature 2022-04-23 14:00:00 36.72 Marycruz Univ ersity of [place] [facility] Respiratory rate 2022-04-23 14:00:00 20 /min Univ ersity of [place] [facility] Body height 2022-04-23 14:00:00 157.5 cm [facility]i [facility] [place] [facility] Body weight 2022-04-23 14:00:00 66.134 kg [facility] [place] [facility] BMI 2022-04-23 14:00:00 26.67 kg/m2 [facility] [place] [facility] Systolic blood 2022-04-16 19:05:00 136 mm[Hg] Univer sity of pressure [place] [facility] Diastolic blood 2022-04-16 19:05:00 89 mm[Hg] Unive rsity of pressure [place] [facility] Heart rate 2022-04-16 19:05:00 75 /min [facility] Body temperature 2022-04-16 19:05:00 36.56 Marycruz [facility] Respiratory rate 2022-04-16 19:05:00 17 /min [facility] Body height 2022-04-16 19:05:00 154.9 cm [facility] Body weight 2022-04-16 19:05:00 65.953 kg [facility] BMI 2022-04-16 19:05:00 27.47 kg/m2 [facility] Systolic blood 2022-04-08 14:53:00 132 mm[Hg] [facility] Diastolic blood 2022-04-08 14:53:00 82 mm[Hg] [facility] Heart rate 2022-04-08 14:53:00 82 /min [facility] Body temperature 2022-04-08 14:53:00 36.11 Marycruz [facility] Respiratory rate 2022-04-08 14:53:00 18 /min [facility] Body height 2022-04-08 14:53:00 154.9 cm [facility] Body weight 2022-04-08 14:53:00 65.454 kg [facility] BMI 2022-04-08 14:53:00 27.27 kg/m2 [facility] Systolic blood 2022-03-25 15:22:00 120 mm[Hg] [facility] Diastolic blood 2022-03-25 15:22:00 80 mm[Hg] [facility] Heart rate 2022-03-25 15:22:00 79 /min [facility] Body temperature 2022-03-25 15:22:00 36.56 Marycruz [facility] Respiratory rate 2022-03-25 15:22:00 18 /min [facility] Body height 2022-03-25 15:22:00 157.5 cm [facility] Body weight 2022-03-25 15:22:00 63.413 kg [facility] BMI 2022-03-25 15:22:00 25.57 kg/m2 [facility] Systolic blood 2022-03-13 19:20:00 129 mm[Hg] [facility] Diastolic blood 2022-03-13 19:20:00 82 mm[Hg] [facility] Heart rate 2022-03-13 19:20:00 80 /min [facility] Body temperature 2022-03-13 19:20:00 36.72 Marycruz [facility] Respiratory rate 2022-03-13 19:20:00 18 /min [facility] Body height 2022-03-13 19:20:00 157.5 cm [facility] Body weight 2022-03-13 19:20:00 63.617 kg [facility] BMI 2022-03-13 19:20:00 25.65 kg/m2 [facility] Systolic blood 2022-02-27 14:27:00 118 mm[Hg] [facility] Diastolic blood 2022-02-27 14:27:00 64 mm[Hg] [facility] Heart rate 2022-02-27 14:27:00 67 /min [facility] Body temperature 2022-02-27 14:27:00 36.56 Marycruz [facility] Respiratory rate 2022-02-27 14:27:00 18 /min [facility] Body height 2022-02-27 14:27:00 157.5 cm [facility] Body weight 2022-02-27 14:27:00 62.738 kg [facility] BMI 2022-02-27 14:27:00 25.30 kg/m2 [facility] Systolic blood 2022-02-14 20:24:00 113 mm[Hg] [facility] Diastolic blood 2022-02-14 20:24:00 71 mm[Hg] [facility] Heart rate 2022-02-14 20:24:00 70 /min [facility] Body temperature 2022-02-14 20:24:00 36.67 Marycruz [facility] Respiratory rate 2022-02-14 20:24:00 18 /min [facility] Body height 2022-02-14 20:24:00 157.5 cm [facility] Body weight 2022-02-14 20:24:00 63.231 kg [facility] BMI 2022-02-14 20:24:00 25.50 kg/m2 [facility] Systolic blood 2022-02-06 01:21:00 112 mm[Hg] [facility] Diastolic blood 2022-02-06 01:21:00 66 mm[Hg] [facility] Heart rate 2022-02-06 01:21:00 70 /min [facility] Body temperature 2022-02-06 01:21:00 36.89 Marycruz [facility] Respiratory rate 2022-02-06 01:21:00 18 /min [facility] Oxygen saturation in 2022-02-06 01:21:00 100 /min [facility] by [place] [facility] Body height 2022-02-05 21:58:00 157.5 cm [facility] Body weight 2022-02-05 21:58:00 62.234 kg [facility] BMI 2022-02-05 21:58:00 25.09 kg/m2 [facility] Heart rate 2022-02-02 23:26:00 75 /min [facility] Body temperature 2022-02-02 23:26:00 36.61 Marycruz [facility] Respiratory rate 2022-02-02 23:26:00 18 /min [facility] Oxygen saturation in 2022-02-02 23:15:00 97 /min [facility] [place] [employer] [facility] Systolic blood 2022-02-02 22:45:00 122 mm[Hg] [facility] Diastolic blood 2022-02-02 22:45:00 80 mm[Hg] [facility] Body height 2022-02-02 22:30:00 157.5 cm [facility] Body weight 2022-02-02 22:30:00 62.143 kg [facility] BMI 2022-02-02 22:30:00 25.06 kg/m2 [facility] Systolic blood 2022-01-31 15:44:00 117 mm[Hg] [facility] Diastolic blood 2022-01-31 15:44:00 68 mm[Hg] [facility] Heart rate 2022-01-31 15:44:00 73 /min [facility] Body temperature 2022-01-31 15:44:00 36.89 Marycruz [facility] Respiratory rate 2022-01-31 15:44:00 18 /min [facility] Body height 2022-01-31 15:44:00 154.9 cm [facility] Body weight 2022-01-31 15:44:00 61.434 kg [facility] BMI 2022-01-31 15:44:00 25.59 kg/m2 [facility] Systolic blood 2022-01-02 17:12:00 100 mm[Hg] [facility] Diastolic blood 2022-01-02 17:12:00 66 mm[Hg] [facility] Heart rate 2022-01-02 17:12:00 84 /min [facility] Body temperature 2022-01-02 17:12:00 36.72 Marycruz [facility] Respiratory rate 2022-01-02 17:12:00 20 /min [facility] Body height 2022-01-02 17:12:00 154.9 cm [facility] Body weight 2022-01-02 17:12:00 59.194 kg [facility] BMI 2022-01-02 17:12:00 24.66 kg/m2 [facility] Systolic blood 2021-12-11 01:13:00 111 mm[Hg] [facility] Diastolic blood 2021-12-11 01:13:00 67 mm[Hg] [facility] Heart rate 2021-12-11 01:13:00 88 /min [facility] Body temperature 2021-12-11 01:13:00 36.61 Marycruz [facility] Respiratory rate 2021-12-11 01:13:00 18 /min [facility] Body height 2021-12-11 01:13:00 154.9 cm [facility] Body weight 2021-12-11 01:13:00 58.514 kg [facility] BMI 2021-12-11 01:13:00 24.37 kg/m2 [facility] Oxygen saturation in 2021-12-11 01:13:00 100 /min [facility] Arterial blood by [facility] Pulse oximetry Branch Systolic blood 2021-12-02 16:16:00 100 mm[Hg] [facility] Diastolic blood 2021-12-02 16:16:00 66 mm[Hg] Unive rsity of pressure [facility] Heart rate 2021-12-02 16:16:00 67 /min [facility] Body temperature 2021-12-02 16:16:00 36.78 Marycruz [facility] Respiratory rate 2021-12-02 16:16:00 18 /min [facility] of [facility] Body height 2021-12-02 16:16:00 157.5 cm [facility] Body weight 2021-12-02 16:16:00 56.87 kg [facility] BMI 2021-12-02 16:16:00 22.93 kg/m2 [facility] of [facility] Systolic blood 2021-11-04 18:16:00 119 mm[Hg] [facility] Diastolic blood 2021-11-04 18:16:00 67 mm[Hg] [facility] Heart rate 2021-11-04 18:16:00 82 /min Universi ty [facility] Body temperature 2021-11-04 18:16:00 36.89 Marycruz [facility] Respiratory rate 2021-11-04 18:16:00 18 /min [facility] Body height 2021-11-04 18:16:[address] [facility] Body weight 2021-11-04 18:16:00 56.246 kg [facility] BMI 2021-11-04 18:16:00 22.68 kg/m2 Universi [facility] Systolic blood 2021-10-24 20:30:00 105 mm[Hg] [facility]iver [facility]ity of [facility] Diastolic blood 2021-10-24 20:30:00 69 mm[facility]Hg] [facility] 2021-10-24 20:30:00 81 /min Universi [facility] Body temperature 2021-10-24 20:30:00 37.22 Marycruz [facility] Respiratory rate 2021-10-24 20:30:00 18 /min [facility] Body height 2021-10-24 20:30:[address] [facility] [facility] Body weight 2021-10-24 20:30:00 55.747 kg [facility] BMI 2021-10-24 20:30:00 22.48 kg/m2 [facility] Procedures Procedure Date / Time Performing Clinician Source Performed CBC WITH DIFF 2022-04-26 09:49:00 Sree [facility] CBC WITH DIFF 2022-04-26 09:49:00 Sree [facility] VENOUS CORD GAS 2022-04-25 09:46:00 [place] [facility] VENOUS CORD GAS 2022-04-25 09:46:00 [place] [facility] SECTION 2022-04-25 08:35:00 Emilee Villarreal [facility] CENTR[facility] NEURAXIAL BLOCK 2022-04-24 17:48:00 Jessica Hazel [facility] SGOT (ASPARTATE AMINO 2022-04-24 05:40:00 Ken, [place] [facility] TRANSFER) Medical Branch CREATININE 2022-04-24 05:40:00 Ken, [facility] ALANINE AMINO 2022-04-24 05:40:00 Ken, [facility] TRANSFERASE(SGPT Medical Branch LACTATE DEHYDROGENASE 2022-04-24 05:40:00 Ken, [facility] URIC ACID 2022-04-24 05:40:00 Ken, [facility] URINALYSIS 2022-04-24 05:40:00 Ken, [facility] PROTEIN CREAT RATIO 2022-04-24 05:40:00 Ken, [facility] URINE RANDOM Medical Branch SGOT (ASPARTATE AMINO 2022-04-24 05:40:00 Ken, [facility] TRANSFER) Medical Branch CREATININE 2022-04-24 05:40:00 Ken, [facility] ALANINE AMINO 2022-04-24 05:40:00 Ken, [facility] TRANSFERASE(PT Medical Branch LACTATE DEHYDROGENASE 2022-04-24 05:40:00 Ken, [facility] URIC ACID 2022-04-24 05:40:00 Ken, [facility] URINALYSIS 2022-04-24 05:40:00 Ken, [facility] PROTEIN CREAT RATIO 2022-04-24 05:40:00 Ken, [facility] URINE RANDOM Medical Branch CBC WITH DIFF 2022-04-24 02:47:00 [place] [facility] HEPATITIS B SURFACE 2022-04-24 02:47:00 [place] [facility] ANTIGEN [facility] HIV 1/2 AG-AB WITH 2022-04-24 02:47:00 Blayne Beckham [facility] REFLEX [facility] SYPHILIS IGG/IGM 2022-04-24 02:47:[address] [facility] CBC WITH DIFF 2022-04-24 02:47:00 [place] [facility] HEPATITIS B SURFACE 2022-04-24 02:47:00 [place] [facility] ANTIGEN [facility] HIV 1/2 AG-AB WITH 2022-04-24 02:47:00 [place] [facility] REFLEX [facility] SYPHILIS IGG/IGM 2022-04-24 02:47:[address] [facility] HB ABO GROUPING 2022-04-24 02:43:00 [place] [facility] RHO (D) IMMUNE GLOBULIN 2022-04-24 02:43:00 Jenusaitis, Luke [facility] HB ABO GROUPING 2022-04-24 02:43:00 [place] [facility] RHO (D) IMMUNE GLOBULIN 2022-04-24 02:43:00 Jenusaitis, Luke [facility] POCT URINALYSIS 2022-04-23 14:02:00 iLan Simms [facility] POCT URINALYSIS 2022-04-16 00:00:00 Lian Simms [facility] POCT URINALYSIS 2022-04-08 14:56:00 Lian Simms [facility] POCT URINALYSIS 2022-03-25 00:00:00 Lian Simms [facility] POCT URINALYSIS 2022-03-13 19:22:00 Lian Simms [facility] 3 HR GLUCOSE TOLERANCE 2022-02-27 17:23:00 Astrid Barnett U [facility] 2 HR GLUCOSE TOLERANCE 2022-02-27 16:23:00 Astrid Barnett [facility] 1 HR GLUCOSE TOLERANCE 2022-02-27 15:23:00 Astrid Barnett [facility] POCT URINALYSIS 2022-02-27 14:29:00 Lina Simms [facility] GLUCOSE FASTING 2022-02-27 14:20:00 Astrid Barnett [facility] 3 HR GLUCOSE TOLERANCE 2022-02-27 14:20:00 [facility] HIV 1/2 AG-AB WITH 2022-02-27 14:20:00 Lian Simms [facility] REFLEX [facility] GALV ONLY - SYPHILIS 2022-02-27 14:20:00 L[facility] IGG/IGM [facility] POCT URINALYSIS 2022-02-14 20:25:00 Lian Simms [facility] AMYLASE 2022-02-06 01:15:00 Cristofer [facility] LIPASE 2022-02-06 01:15:00 Cristofer [facility] COMP. METABOLIC PANEL 2022-02-06 01:15:00 Madhuri Orozco [facility] ([id number]) [facility] CBC WITH DIFF 2022-02-06 01:15:00 Madhuri Orozco [facility] US ABDOMEN LIMITED 2022-02-06 00:52:51 Madhuri Orozco [facility] CONSENT/REFUSAL FOR 2022-02-05 21:54:06 Doctor Unassigned, No [facility]REATMENT [facility] ASSIGNMENT OF BENEFITS 2022-02-02 21:50:55 Doctor Unassigned, No [facility] CONSENT/REFUSAL FOR 2022-02-02 21:49:43 Doctor Unassigned, No [facility] GLUCOSE 1 HOUR POST 2022-01-31 16:42:00 Astrid Barnett [facility] CBC WITH DIFF 2022-01-31 16:42:00 Astrid Barnett [facility] TDAP VACCINE, >11 YRS, 2022-01-31 15:55:44 Lian Simms [facility] POCT URINALYSIS 2022-01-31 15:44:00 Lian Simms [facility] POCT URINALYSIS 2022-01-02 00:00:00 Lian Simms [facility] URINALYSIS 2021-12-11 01:30:00 Lizett Wei o f [facility] CONSENT/REFUSAL FOR 2021-12-11 00:26:08 Doctor Unassigned, No [facility] Name [facility] POCT URINALYSIS 2021-12-02 16:23:00 Lian Simms [facility] POCT URINALYSIS 2021-11-04 18:17:00 Lian Simms Univers [facility] FIRST TRIMESTER TRISOMY 2021-10-25 20:33:00 Rosalia Purdy [facility] POCT URINALYSIS 2021-10-24 21:13:00 Lian Simms [facility] Encounters Start End Encounter Admission Attending Care Care Encounter Source Date/Time Date/Time Type Type Clinicians Facility Department ID 2022-02-02 Outpatient X [facility] [id number] Univers 18:33:42 ity [facility] 2022-05-06 2022-05-06 Outpatient R [facility] [id number] Univers 09:00:00 09:00:00 ity [facility] 2022-05-02 2022-05-02 Outpatient R DEMI [facility] [id number] Univers 09:30:00 09:59:05 LIAN lam o f [facility] 2022-05-02 2022-05-02 Nurse Visit, Marcos-Rmchp Nurse [facility] 1.2 .840.114 [id number] Univers 09:30:00 09:59:05 Visit Lain Simms [employer]PLITTER 350.1.13. 10 ity [facility] 4.2.7.2.686 Jose as MATERNAL [phone] [facility] ical & CHILD [address] [place] [address] 2022-04-23 2022-04-26 [facility] 1.2.840.114 [id number] Univers 18:02:00 22:17:00 Encounter Chip MILLS 350.1.13.10 ity [facility] 4.2.7.2.686 Jose as [id number] [facility] 133 Branch 2022-04-26 2022-04-26 Telephone [facility] 1.2.840.114 [id number] Univers 00:00:00 00:00:00 Lian C [employer]PLITTER 350.1.13.[address] [facility] 4.2.7.2.686 Jose as MATERNAL [id number] [facility] & CHILD [address] [place] [address] 2022-04-25 2022-04-25 Surgery LEROY Villarreal 1.2.840.114 [id number] Univers 02:10:00 03:52:00 Emilee MILLS 350.1.13.10 it y of [facility] 4.2.7.2.686 [place] [id number] [facility] 013 Branch 2022-04-24 2022-04-24 Anesthesia Colby Daquan LEROY 1.2.8 [id number] Univers 11:17:00 11:17:00 Event Ronen Presley GENE 350.1.13.10 ity [facility] 4.2.7.2.686 Jose as [id number] [facility] 132 Branch 2022-04-23 2022-04-23 Outpatient R GERALDINEPE, [facility] [id number] Univers 08:00:00 08:21:15 LIAN ity o f [facility] 2022-04-23 2022-04-23 Routine [facility], [facility] [id number] [id number] Univers 08:00:00 08:21:15 Lian C W[employer] SPLITTER 350.1.13.10 ity of [facility] 4.2.7.2.686 Jose as MATERNAL [id number] [facility] & CHILD [address] [place] [address] 2022-04-23 2022-04-23 Outpatient R NICKSIPE, [facility] [id number] Univers 08:00:00 08:21:15 LIAN ity o f [facility] 2022-04-22 2022-04-22 [facility] [id number] Univers 00:00:00 00:00:00 Lian C [employer] SPLITTER 350.1.13.10 ity of REGIONAL 4.2.7.2.686 Jose as MATERNAL [id number] [facility] ical & CHILD [address] [place] [address] 2022-04-16 2022-04-16 Outpatient R DEMI, [facility] [id number] Univers 13:15:00 13:35:23 LIAN ity o f [facility] 2022-04-16 2022-04-16 Routine Akinpe, [facility] [id number] Univers 13:15:00 13:35:23 Lian C [employer]PLIT[employer] 350.1.13.10 ity of Visit REGIONAL 4.2.7.2.686 Jose as MATERNAL [id number] [facility] & CHILD [address] [place] [address] 2022-04-09 2022-04-09 Telephone [facility] 1.2.840.114 [id number] Univers 00:00:00 00:00:00 Lian C [employer] SPLITTER 350.1.13.10 ity of REGIONAL 4.2.7.2.686 Jose as MATERNAL [id number] [facility] ical & CHILD [address] [place] [address] 2022-04-08 2022-04-08 Outpatient R DEMI, [facility] [id number] Univers 09:00:00 09:53:37 LIAN ity o f [facility] 2022-04-08 2022-04-08 [facility] [id number] Univers 09:00:00 09:53:37 Lian C [employer] SPLITTER 350.1.13.10 ity of Visit REGIONAL 4.2.7.2.686 Jose as MATERNAL [id number] [facility] & CHILD [address] [place] [address] 2022-03-27 2022-03-27 Outpatient R NICKSIPE, [facility] [id number] Univers 14:45:00 14:45:00 LIAN ity o f [facility] 2022-03-27 2022-03-27 Telephone [facility] 1.2.840.114 [id number] Univers 00:00:00 00:00:00 Lian C W[employer] SPLITTER 350.1.13.10 ity of REGIONAL 4.2.7.2.686 Jose as MATERNAL [id number] [facility] & CHILD [address] [place] [address] 2022-03-27 2022-03-27 Telephone [facility] 1.2.840.114 [id number] Univers 00:00:00 00:00:00 Lian C WARP SPLITTER 350.1.13.10 ity of REG[facility]AL 4.2.7.2.686 Jose as MATERNAL [id number] [facility] & CHILD [address] [place] [address] 2022-03-25 2022-03-25 Outpatient R [facility] [id number] Univers 09:00:00 09:39:39 LIAN ity o f [facility] 2022-03-25 2022-03-25 Routine [facility] [id number] Univers 09:00:00 09:39:39 Lian C [employer]PLIT[employer] 350.1.13.10 ity of Visit REGIONAL 4.2.7.2.686 Jose as MATERNAL [id number] [facility] & CHILD [address] [place] [address] 2022-03-25 2022-03-25 Telephone [facility] 1.2.840.114 [id number] Univers 00:00:00 00:00:00 Lian C WARP SPLITTER 350.1.13.10 ity of REG[facility]AL 4.2.7.2.686 Jose as MATERNAL [id number] [facility] & CHILD [address] [place] [address] 2022-03-24 2022-03-24 Telephone [facility] 1.2.840.114 [id number] Univers 00:00:00 00:00:00 Lian C WARP SPLITTER 350.1.13.10 ity of REG[facility]AL 4.2.7.2.686 Jose as MATERNAL [id number] [facility] & CHILD [address] [place] [address] 2022-03-17 2022-03-17 Nurse LEROY Fowler 1.2.840.114 [id number] Univers 00:00:00 00:00:00 Triage Jose Cruz MILLS 350.1.13.10 ity of [facility] 4.2.7.2.686 Jose as [id number] [address] 2022-03-13 2022-03-13 Outpatient R DEMI [facility] [id number] Univers 13:15:00 13:43:58 LIAN ity o [facility] 2022-03-13 2022-03-13 Routine Demi, [facility] [id number] Univers 13:15:00 13:43:58 Lian C W[employer] SPLITTER 350.1.13.10 ity of Visit REGIONAL 4.2.7.2.686 Jose as MATERNAL [id number] [facility] ical & CHILD [address] [place] [address] 2022-02-27 2022-02-27 Outpatient R DEMI, [facility] [id number] Univers 08:00:00 08:59:40 LIAN itshanel o [facility] 2022-02-27 2022-02-27 Routine Demi, [facility] [id number] Univers 08:00:00 08:59:40 Lian C [employer] SPLITTER 350.1.13.10 ity of Visit REGIONAL 4.2.7.2.686 Jose as MATERNAL [id number] [facility] & [address] 2022-02-19 2022-02-19 Telephone Provider, [facility] 1.2.840.114 [id number] Univers 00:00:00 00:00:00 Ang-Rmchvidya W[employer]PL[employer]TER 350.1.13.[address] [facility] 4.2.7.2.686 Jose as MATERNAL [id number] [facility] ical & CHILD [address] [place] [address] 2022-02-14 2022-02-14 Outpatient R DEMI, [facility] [id number] Univers 13:45:00 14:46:03 LIAN itshanel o [facility] 2022-02-14 2022-02-14 [facility]ine [facility] .2.840.114 [id number] Univers 13:45:00 14:46:03 Akinsipe, Lian C [employer] 350.1.13 .10 ity of Visit REGIONAL 4.2.7.2.686 Jose as MATERNAL [id number] [facility] ical & CHILD [address] [place] [address] 2022-02-14 2022-02-14 Outpatient R DEMI [facility] [id number] Univers 09:45:00 09:45:00 LIAN ity o f [facility] 2022-02-07 2022-02-07 Telephone [facility] 1.2.840.114 [id number] Univers 00:00:00 00:00:00 Lian C W[employer] SPLITTER 350.1.13.10 ity of [facility] 4.2.7.2.686 Jose as MATERNAL [id number] [facility] & CHILD [address] [place] [address] 2022-02-05 2022-02-05 Outpatient X MADHURI OROZCO [facility] [id number] Univers 16:03:00 21:25:00 ity of [facility] 2022-02-05 2022-02-05 Emergency Madhuri Orozco [facility] 1.2.840.114 [id number] Univers 16:03:00 21:25:00 [facility] 350.1.13.10 i ty [facility] 4.2.7.2.686 [facility] [id number] [address] 2022-02-05 2022-02-05 Telephone [facility] 1.2.840.114 [id number] Univers 00:00:00 00:00:00 Lian C WARP SPLITTER 350.1.13.10 ity of REGIONAL 4.2.7.2.686 Jose as MATERNAL [id number] [facility] ical & CHILD [address] [place] [address] 2022-02-04 2022-02-04 [facility] 1.2.840.114 [id number] Univers 00:00:00 00:00:00 Lian C WARP SPLITTER 350.1.13.10 ity of REGIONAL 4.2.7.2.686 Jose as MATERNAL [id number] [facility] & CHILD [address] [place] [address] 2022-02-02 2022-02-02 Outpatient [facility] [id number] Univers 15:56:00 17:30:00 LIZETT ity of [facility] 2022-02-02 2022-02-02 Emergency Adum, [facility] 1.2.069.056 [id number] Univers 15:56:00 17:30:00 Lizett ZIEGLER 350.1.13.10 ity [facility] 4.2.7.2.686 [facility] [id number] [address] 2022-02-02 2022-02-02 Case [facility] 1.2.840.114 [id number] Univers 00:00:00 00:00:00 Management Astrid Garcia WARP SPLITTER 350.1.13.[address] [facility] 4.2.7.2.686 Jose as MATERNAL [id number] Med ical & CHILD [address] [place] [address] 2022-01-31 2022-01-31 Outpatient Abhijeet SIMMS [facility] [id number] Univers 09:45:00 10:15:27 LIAN lam o f [facility] 2022-01-31 2022-01-31 Routine Demi, [facility] 1.2.194.123 [id number] Univers 09:45:00 10:15:27 Lian Brizuela [employer] SPL[employer]TER 350.1.13.10 ity of Visit REGIONAL 4.2.7.2.686 Jose as MATERNAL [id number] [facility] & CHILD [address] [place] [address] 2022-01-02 2022-01-02 Outpatient R MIGUEL ANGEL [facility] [id number] Univers 10:45:00 11:43:22 ASTRID itshanel [facility] 2022-01-02 2022-01-02 Routine Provider, Ang-Rmchp Temp [facility] 1 .2.840.114 [id number] Univers 10:45:00 11:43:22 Astrid Barnett [employer] SPL[employer]TER 350.1.13. 10 ity of Visit REGIONAL 4.2.7.2.686 Jose as MATERNAL [id number] [facility] ical & CHILD [address] [place] [address] 2021-12-30 2021-12-30 Out[facility] [id number] Univers 11:00:00 11:00:00 LIAN astorga f [facility] 2021-12-19 2021-12-19 Abstract [facility] 1.2.840.114 [id number] Univers 00:00:00 00:00:00 Lian Brizuela WARP SPLITTER 350.1.13.[address] [facility] 4.2.7.2.686 Jose as MATERNAL [phone] Med ical & CHILD 107 [facility] 2021-12-13 2021-12-13 Tracing Lathe Set Up Operator [facility] 1.2 .840.114 [id number] Univers 13:00:00 14:15:00 Visit Josesito Carrillo WARP SPLITTER 350.1.13.[address] [facility] 4.2.7.2.686 Jose as MATERNAL [phone] [facility] ical & CHILD 369 [facility] 2021-12-13 2021-12-13 Outpatient P JOSESIOT CARRILLO [facility] [id number] Univers 13:00:00 13:00:00 JOSESITO CARRILLO [facility] 2021-12-10 2021-12-10 Outpatient X ADUM, [facility] ROS[facility]URA [id number] Univers 19:40:00 21:30:00 LIZETT lam [facility] 2021-12-10 2021-12-10 Emergency Adum, [facility] 1.2.521.954 [id number] Univers 19:40:00 21:30:00 Lizett ZIEGLER 350.1.13.10 ity of [place] 4.2.7.2.686 [facility] [id number] [facility] [address] 2021-12-10 2021-12-10 Orders Doctor LEROY 1.2.840.114 [id number] Univers 00:00:00 00:00:00 Only Unassigned, GENE 350.1.13.[address] [facility] 4.2.7.2.686 Jose as [phone] [facility] [address] 2021-12-02 2021-12-02 Outpatient R [facility] [id number] Univers 11:00:00 11:28:34 LIAN astorga f [facility] 2021-12-02 2021-12-02 Routine Akinsipe, [facility] 1.2.124.486 [id number] Univers 11:00:00 11:28:34 Lian C WARP SPLITTER 350.1.13.10 ity of Visit REGIONAL 4.2.7.2.686 Jose as MATERNAL [id number] [facility] ical & CHILD [address] [place] [address] 2021-11-04 2021-11-04 Outpatient R AKINSIPE, [facility] [id number] Univers 12:45:00 13:34:38 LIAN ity o f [facility] 2021-11-04 2021-11-04 Routine Akinpe, [facility] 1.2.688.930 [id number] Univers 12:45:00 13:34:38 Lian C WARP SPLITTER 350.1.13.10 ity of Visit REGIONAL 4.2.7.2.686 Jose as MATERNAL [id number] [facility] & CHILD [address] [place] [address] 2021-11-04 2021-11-04 Outpatient R AKINSIPE, [facility] [id number] [facility] 12:45:00 12:45:00 LIAN lam o mc [facility] 2021-10-29 2021-10-29 Abstract Nickfaby, [facility] 1.2.840.114 [id number] Univers 00:00:00 00:00:00 Lian C WARP SPLITTER 350.1.13.10 ity of REGIONAL 4.2.7.2.686 Jose as MATERNAL [id number] [facility] & CHILD [address] [place] [address] 2021-10-25 2021-10-25 Tracing Lathe Set Up Operator Lab, [facility] 1.2.840. 114 [id number] Univers 15:00:00 15:39:34 Visit Crispin Son W[employer] SPLITTER 350.1.13.10 ity of REGIONAL 4.2.7.2.686 Jose as MATERNAL [id number] [facility] ical & CHILD [address] [place] [address] 2021-10-25 2021-10-25 Outpatient R CRISPIN SON [facility] [id number] Univers 15:00:00 15:00:00 CRISPIN SON [facility] 2021-10-25 2021-10-25 Tracing Lathe Set Up Operator 1, Caryl Room [facility] 1.2. 840.114 [id number] Univers 14:00:00 14:45:00 Visit Silva, Joey Troy W[employer] SPLITTER 350.1.13.1 0 ity of REGIONAL 4.2.7.2.686 Jose as MATERNAL [phone] Med ical & CHILD 369 [facility] 2021-10-25 2021-10-25 Outpatient P [facility] [id number] Univers 14:00:00 14:00:00 ity of [facility] 2021-10-25 2021-10-25 Case Gurwinder [facility] 1.2.840.114 [id number] Univers 00:00:00 00:00:00 Management Rosalia WARP SPLITTER 350.1.13.10 ity of REGIONAL 4.2.7.2.686 Jose as MATERNAL [id number] Med ical & CHILD 124 [facility] 2021-10-24 2021-10-24 Outpatient R TIMMY [facility] [id number] Univers 15:15:00 16:00:28 JOHNNY [facility] 2021-10-24 2021-10-24 Routine Risk, Bpp-Dmzay-Su/High [facility] 1. 2.840.114 [id number] Univers 15:15:00 16:00:28 Johnny Warner WARP SPLITTER 350.1.13.10 ity of Visit REGIONAL 4.2.7.2.686 Jose as MATERNAL [phone] Med ical & CHILD [address] [place] [address] 2021-10-17 2021-10-17 Telephone Demi [facility] 1.2.840.114 [id number] Univers 00:00:00 00:00:00 Lian Brizuela WARP SPLITTER 350.1.13.10 ity of REGIONAL 4.2.7.2.686 Jose as MATERNAL [id number] Med ical & CHILD [address] [place] [address] 2021-10-07 2021-10-07 Outpatient R DEMI, [facility] [id number] Univers 13:00:00 13:29:01 LIAN bentley [facility] 2021-10-07 2021-10-07 Routine [facility] 1.2.711.633 [id number] Univers 13:00:00 13:15:00 Lian Brizuela WARP SPLITTER 350.1.13.10 ity of Visit REGIONAL 4.2.7.2.686 Jose as MATERNAL [id number] [facility] & [address] 2021-10-07 2021-10-07 Outpatient R DEMI [facility] [id number] Univers 13:00:00 13:00:00 LIAN gregoryshanel rizwan mc [facility] 2021-09-30 2021-09-30 Outpatient R JOSESITO CARRILLO [facility] [id number] Univers 10:00:00 10:51:05 JOSESITO CARRILLO [facility] 2021-09-30 2021-09-30 Routine Faculty, [facility] 1.2 .840.114 [id number] Univers 10:00:00 10:51:05 Josesito Carrillo WARP SPLITTER 350.1.13.10 ity of Visit REGIONAL 4.2.7.2.686 Jose as MATERNAL [id number] [facility] & [address] 2021-09-30 2021-09-30 Outpatient R JOSESITO CARRILLO [facility] [id number] Univers 10:00:00 10:51:05 JOSESITO CARRILLO [facility] 2021-09-30 2021-09-30 Outpatient R [facility] [id number] Univers 10:00:00 10:00:00 [facility] 2021-09-30 2021-09-30 Outpatient R [facility] [id number] Univers 10:00:00 10:00:00 [facility] 2021-09-30 2021-09-30 Outpatient R [facility] [id number] Univers 10:00:00 10:00:00 [facility] 2021-09-24 2021-09-24 [facility] 1.2.840.114 [id number] Univers 00:00:00 00:00:00 Lian C WARP SPLITTER 350.1.13.[address] [facility] 4.2.7.2.686 Jose as MATERNAL [id number] [facility] & CHILD [address] [place] [address] 2021-09-18 2021-09-18 Telephone [facility], [facility] 1.2.840.114 [id number] Univers 00:00:00 00:00:00 Lian C WARP SPLITTER 350.1.13.[address] [facility] 4.2.7.2.686 Jose as MATERNAL [id number] [facility] & CHILD [address] [place] [address] 2021-09-10 2021-09-10 Orders Doctor LEROY 1.2.840.114 [id number] Univers 00:00:00 00:00:00 Only Unassigned, GENE 350.1.13.10 ity of [place] [facility] 4.2.7.2.686 Jose as [id number] [facility] [address] 2021-09-09 2021-09-09 Telephone [facility], [facility] 1.2.840.114 [id number] Univers 00:00:00 00:00:00 Lian C WARP SPLITTER 350.1.13.[address] [facility] 4.2.7.2.686 Jose as MATERNAL [id number] [facility] & CHILD [address] [place] [address] 2021-09-06 2021-09-06 Nurse LEROY Gardner 1.2.840.114 [id number] Univers 00:00:00 00:00:00 Triage Vicki MILLS 350.1.13.10 ity of [facility] 4.2.7.2.686 Jose as [id number] [facility] [address] 2021-09-06 2021-09-06 Nurse Lester HARPER 1.2.840.114 [id number] Univers 00:00:00 00:00:00 Triage GENE Breen 350.1.13.10 ity of [facility] 4.2.7.2.686 Jose as [phone] [facility] [address] 2021-09-05 2021-09-05 [facility] 1.2.840.114 [id number] Univers 00:00:00 00:00:00 Lian Brizuela WARP SPLITTER 350.1.13.10 ity of REGIONAL 4.2.7.2.686 Jose as MATERNAL [phone] [facility] & CHILD [address] [place] [address] 2021-09-02 2021-09-02 Outpatient R AKINSIPE, [facility] [id number] Univers 15:00:00 16:51:33 LIAN ity o [facility] 2021-09-02 2021-09-02 Outpatient R AKINSIPE, [facility] [id number] Univers 15:00:00 16:51:33 LIAN jenkinsy o [facility] 2021-09-02 2021-09-02 [facility] 1.2.835.982 [id number] Univers 15:00:00 16:51:33 Lian Brizuela WARP SPLITTER 350.1.13.[address] [facility] 4.2.7.2.686 Jose as MATERNAL [id number] [facility] & CHILD [address] [place] [address] 2021-09-02 2021-09-02 Outpatient R AKINSIPE, [facility] [id number] Univers 15:00:00 16:51:33 LIAN jenkinsy o [facility] 2021-09-02 2021-09-02 Outpatient R AKINSIPE, [facility] [id number] Univers 15:00:00 15:00:00 LIAN ity o [facility] 2021-09-02 2021-09-02 Outpatient R AKINSIPE, [facility] [id number] Univers 15:00:00 15:00:00 LIAN ity o [facility] 2021-09-02 2021-09-02 Orders Doctor LEROY 1.2.840.114 [id number] Univers 00:00:00 00:00:00 Only Unassigned, GENE 350.1.13.10 ity of [place] [facility] 4.2.7.2.686 Jose as [id number] [address] Results Test Description Test Time Test Comments Results Result Comments Source CBC with Differential 2022-04-26 10:36:30 Test Item Value Reference Range Interpretation Comme nts WBC (test code = 6690-2) 10.67 See_Comment [A utomated message] The system which [employer] nerated this result transmit jamel reference range: 4.30 - 1 1.10 10*3/?L. The reference r helene was not used to interpr et this result as normal/abnor mal. RBC (test code = 789-8) 3.72 See_Comment L [Au tomated message] The system which [employer] nerated this result transmit jamel reference range: 3.93 - 5 .25 10*6/?L. The reference r helene was not used to interpr et this result as normal/abnor mal. HGB (test code = 718-7) 8.6 g/dL 11.6-15.0 L HCT (test code = 4544-3) 28.4 % 35.7-45.2 L MCV (test code = 787-2) 76.3 fL 80.6-95.5 L MCH (test code = 785-6) 23.1 pg 25.9-32.8 L MCHC (test code = 786-4) 30.3 g/dL 31.6-35.1 L RDW-SD (test code = 66766-3) 49.8 fL 39.0-49.9 RDW-CV (test code = 788-0) 18.2 % 12.0-15.5 H PLT (test code = 777-3) 200 See_Comment [Au tomated message] The system which [employer] nerated this result transmit jamel reference range: 166 - 35 8 10*3/?L. The reference range was not used to interpret th is result as normal/abnormal . MPV (test code = 16935-5) 11.0 fL 9.5-12.9 NRBC/100 WBC (test code = 0.0 See_Comment [ Automated message] The 6045262040) system which [employer] nerated this result transmit jamel reference range: 0.0 - 10 .0 /100 WBCs. The reference r helene was not used to interpr et this result as normal/abnor mal. NRBC x10^3 (test code = See_Comment [Au tomated message] The 9341048961) system which ge nerated this result transmit jamel reference range: 10*3/?L. The reference range was not u sed to interpret this result as normal/abnormal . GRAN MAT (NEUT) % (test code 81.9 % = 770-8) IMM GRAN % (test code = 0.60 % 6550016226) LYMPH % (test code = 736-9) 11.7 % MONO % (test code = 5905-5) 4.8 % EOS % (test code = 713-8) 0.9 % BASO % (test code = 706-2) 0.1 % GRAN MAT x10^3(ANC) (test 8.74 10*3/uL 1.88-7.09 H code = 4765203555) IMM GRAN x10^3 (test code = 0.06 10*3/uL 0.00-0.06 8102795814) LYMPH x10^3 (test code = 1.25 10*3/uL 1.32-3.29 L 731-0) MONO x10^3 (test code = 0.51 10*3/uL 0.33-0.92 742-7) EOS x10^3 (test code = 0.10 10*3/uL 0.03-0.39 711-2) BASO x10^3 (test code = 0.01-0.07 704-7) Lab Interpretation (test Abnormal code = 54160-5) [facility] with [id number] 10:36:30 Test Item Value Reference Range Interpretation Comments WBC (test code = 10.67 See_Comment [Automated 7990-2) message] The sy stem which generated this result transmitted reference range : 4.30 - 11.10 10*3/?L. The reference range was not used to interpret this result as normal/abnormal . RBC (test code = 3.72 See_Comment L [Automated 899-8) message] The sy stem which generated this result transmitted reference range : 3.93 - 5.25 10*6/?L. The reference range was not used to interpret this result as normal/abnormal . HGB (test code = 8.6 g/dL 11.6-15.0 L 718-7) HCT (test code = 28.4 % 35.7-45.2 L 4544-3) MCV (test code = 76.3 fL 80.6-95.5 L 787-2) MCH (test code = 23.1 pg 25.9-32.8 L 785-6) MCHC (test code = 30.3 g/dL 31.6-35.1 L 786-4) RDW-SD (test code = 49.8 fL 39.0-49.9 99623-9) RDW-CV (test code = 18.2 % 12.0-15.5 H 788-0) PLT (test code = 200 See_Comment [Automated 777-3) message] The sy stem which generated this result transmitted reference range : 166 - 358 10*3/ ?L. The reference r helene was not used to interpret this result as normal/abnormal . MPV (test code = 11.0 fL 9.5-12.9 53685-2) NRBC/100 WBC (test 0.0 See_Comment [Automat ed code = 9129764329) message] The system which generated this result transmitted reference range : 0.0 - 10.0 /100 WBCs. The refer ence range was not u sed to interpret th is result as normal/abnormal . NRBC x10^3 (test code See_Comment [Auto mated = 9000766205) message] The s ystem which generated this result transmitted reference range : 10*3/?L. The reference range was not used to interpret this result as normal/abnormal . GRAN MAT (NEUT) % 81.9 % (test code = 770-8) IMM GRAN % (test code 0.60 % = 2099480208) LYMPH % (test code = 11.7 % 736-9) MONO % (test code = 4.8 % 5905-5) EOS % (test code = 0.9 % 713-8) BASO % (test code = 0.1 % 706-2) GRAN MAT x10^3(ANC) 8.74 10*3/uL 1.88-7.09 H (test code = 3204643973) IMM GRAN x10^3 (test 0.06 10*3/uL 0.00-0.06 code = 8499715176) LYMPH x10^3 (test code 1.25 10*3/uL 1.32-3.29 L = 731-0) MONO x10^3 (test code 0.51 10*3/uL 0.33-0.92 = 742-7) EOS x10^3 (test code = 0.10 10*3/uL 0.03-0.39 711-2) BASO x10^3 (test code 0.01-0.07 = 704-7) Lab Interpretation Abnormal (test code = 58871-6) [facility] IMMUNE [id number] 12:57:08 Test Item Value Reference Range Interpretation Comments RHIG CANDIDATE? No- see comment Patient i s not a (test code = candidate for R hIg- 5055) Patient is Rh Positive.Perfor med at [facility] Laboratory [facility] Blood [address] Free: [phone] A No. [id number] [facility]) IMMUNE [id number] 12:57:08 Test Item Value Reference Range Interpretation Comments RHIG CANDIDATE? No- see comment Patient i s not a (test code = candidate for R hIg- 5055) Patient is Rh Positive.Perfor med at [facility] Laboratory [facility] Blood [address] Free: [phone] A No. [id number] [facility] [id number] 10:01:20 Test Item Value Reference Range Interpretation Comments VENOUS BASE EXCESS, -5.6 mEq/L CORD (test code = 1695598798) VENOUS PH, CORD (test 7.36 7.25-7.45 code = 5001258284) VENOUS PC02, CORD 34 See_Comment [Automate d message] The (test code = system which ge nerated 5888692030) this result tra nsmitted reference range : 27 - 49 mmHg. The refer ence range was not used to interpret this result as normal/abnormal . VENOUS PO2, CORD (test 31 See_Comment [Aut omated message] The code = 0266570203) system wh ich generated this result tra nsmitted reference range : 17 - 41 mmHg. The refer ence range was not used to interpret this result as normal/abnormal . VENOUS BICARBONATE, 19 See_Comment [Automa jamel message] The CORD (test code = system [facility] generated 8337795356) this result tra nsmitted reference range : 12 - 29 mEq/L. The refe rence range was not used to interpret this result as normal/abnormal . [facility] CORD [id number] 10:01:20 Test Item Value Reference Range Interpretation Comments VENOUS BASE EXCESS, -5.6 mEq/L CORD (test code = 0167399015) VENOUS PH, CORD (test 7.36 7.25-7.45 code = 6913124071) VENOUS PC02, CORD 34 See_Comment [Automate d message] The (test code = system [facility] nerated 9237625659) this result tra nsmitted reference range : 27 - 49 mmHg. The refer ence range was not used to interpret this result as normal/abnormal . VENOUS PO2, CORD (test 31 See_Comment [Aut omated message] The code = 0022336901) system [facility] generated this result tra nsmitted reference range : 17 - 41 mmHg. The refer ence range was not used to interpret this result as normal/abnormal . VENOUS BICARBONATE, 19 See_Comment [Automa jamel message] The CORD (test code = system [facility] generated 7924953082) this result tra nsmitted reference range : 12 - 29 mEq/L. The refe rence range was not used to interpret this result as normal/abnormal . [facility] CORD [id number] 09:58:24 Test Item Value Reference Range Interpretation Comments BASE EXCESS, CORD -5.4 mEq/L (test code = 7062295398) AC PH, CORD (BEAKER) 7.33 7.18-7.38 (test code = 8107932386) PC02, CORD (test code 40 See_Comment [Auto mated message] The = 3782833026) system which g enerated this result transmit jamel reference range : 32 - 66 mmHg. The refer ence range was not used to interpret this result as normal/abnormal . PO2, CORD (test code 20 See_Comment [Autom ated message] The = 7302532064) system which g enerated this result transmit jamel reference range : 10 - 30 mmHg. The refer ence range was not used to interpret this result as normal/abnormal . BICARBONATE, CORD 20 See_Comment [Automate d message] The (test code = system which ge nerated this 6486976650) result transmit jamel reference range : 17 - 27 mEq/L. The refe rence range was not used to interpret this result as normal/abnormal . [facility] CORD [id number] 09:58:24 Test Item Value Reference Range Interpretation Comments BASE EXCESS, CORD -5.4 mEq/L (test code = 6644281373) AC PH, CORD (BEAKER) 7.33 7.18-7.38 (test code = 0392322322) PC02, CORD (test code 40 See_Comment [Auto mated message] The = 0485541695) system which g enerated this result transmit jamel reference range : 32 - 66 mmHg. The refer ence range was not used to interpret this result as normal/abnormal . PO2, CORD (test code 20 See_Comment [Autom ated message] The = 1078507149) system which g enerated this result transmit jamel reference range : 10 - 30 mmHg. The refer ence range was not used to interpret this result as normal/abnormal . BICARBONATE, CORD 20 See_Comment [Automate d message] The (test code = system which ge nerated this 9036298322) result transmit jamel reference range : 17 - 27 mEq/L. The refe rence range was not used to interpret this result as normal/abnormal . [facility] ONLY - SYPHILIS IGG/[id number] 16:21:06 Test Item Value Reference Range Interpretation Comments Syphilis IgG/IgM (test Non-reactive Non-reactive code = 62405-0) MELVIN (test code = MELVIN) Non-reactive - No serologic evidence of T. pallidum infection. Cannot exclude incubating or early syphilis. Submit a second specimen in 2-4 weeks if syphilis is clinically suspected. Equivocal - Further testing to follow. Reactive - Further testing to follow. Lab Interpretation (test Normal code = 71150-8) [facility] ONLY - [place] [id number] 16:21:06 Test Item Value Reference Range Interpretation Comments Syphilis IgG/IgM (test Non-reactive Non-reactive code = 46902-9) MELVIN (test code = MELVIN) Non-reactive - No serologic evidence of T. pallidum infection. Cannot exclude incubating or early syphilis. Submit a second specimen in 2-4 weeks if syphilis is clinically suspected. Equivocal - Further testing to follow. Reactive - Further testing to follow. Lab Interpretation (test Normal code = 48748-0) [facility] [id number] 06:06:11 Test Item Value Reference Range Interpretation Comments URIC ACID (test code = 1479646576) 3.6 mg/dL 2.9-6.0 Lab Interpretation (test code = Normal 40825-5) [facility] [id number] 06:06:11 Test Item Value Reference Range Interpretation Comments CREATININE (test code 0.53 mg/dL 0.50-1.04 = 8208841013) eGFR (test code = 144.2 mL/min/1.73m2 4354479494) MELVIN (test code = MELVIN) Association of Glomerular Filtration Rate (GFR) and Staging of Kidney Disease* + + +- +| GFR (mL/min/1.73 m2) ?| With Kidney Damage ?| ?Without Kidney Damage+ ------+ ----+ ------+| ?>90 ?| ?Stage one ?| ? Normal ?+ -+ + -+| ?60-89 ?| ?Stage two ?| ? Decreased GFR ? + + +- +| ?30-59 ?| ?Stage three ?| ? Stage three ? + + +- +| ?15-29 ?| ?Stage four ? | ? Stage four ?+ -+ + -+| ?<15 (or dialysis) ? ?| ?Stage five ? | ? Stage five ?+ -+ + -+ *Each stage assumes the associated GFR level has been in effect for at least three months. ?Stages 1 to 5, with or without kidney disease, indicate chronic kidney disease. Notes: Determination of stages one and two (with eGFR >59mL/min/1.73 m2) requires estimation of kidney damage for at least three months as defined by structural or functional abnormalities of the kidney, manifested by either:Pathological abnormalities or Markers of kidney damage (including abnormalities in the composition of the blood or urine or abnormalities in imaging tests). [facility]2022-04-24 06:06:11 Test Item Value Reference Range Interpretation Comments AST(SGOT) (test code = [id number]) 22 U/L 13-40 Lab Interpretation (test code = Normal 59724-6) [facility])2022-04-24 06:06:11 Test Item Value Reference Range Interpretation Comments ALTv (test code = 1742-6) 19 U/L 5-35 Lab Interpretation (test code = Normal 37937-8) [facility] [id number] 06:06:11 Test Item Value Reference Range Interpretation Comments URIC ACID (test code = 1214790141) 3.6 mg/dL 2.9-6.0 Lab Interpretation (test code = Normal 74563-0) [facility] [id number] 06:06:11 Test Item Value Reference Range Interpretation Comments CREATININE (test code 0.53 mg/dL 0.50-1.04 = 5717362381) eGFR (test code = 144.2 mL/min/1.73m2 2646990631) MELVIN (test code = MELVIN) Association of Glomerular Filtration Rate (GFR) and Staging of Kidney Disease* + + +- +| GFR (mL/min/1.73 m2) ?| With Kidney Damage ?| ?Without Kidney Damage+ ------+ ----+ ------+| ?>90 ?| ?Stage one ?| ? Normal ?+ -+ + -+| ?60-89 ?| ?Stage two ?| ? Decreased GFR ? + + +- +| ?30-59 ?| ?Stage three ?| ? Stage three ? + + +- +| ?15-29 ?| ?Stage four ? | ? Stage four ?+ -+ + -+| ?<15 (or dialysis) ? ?| ?Stage five ? | ? Stage five ?+ -+ + -+ *Each stage assumes the associated GFR level has been in effect for at least three months. ?Stages 1 to 5, with or without kidney disease, indicate chronic kidney disease. Notes: Determination of stages one and two (with eGFR >59mL/min/1.73 m2) requires estimation of kidney damage for at least three months as defined by structural or functional abnormalities of the kidney, manifested by either:Pathological abnormalities or Markers of kidney damage (including abnormalities in the composition of the blood or urine or abnormalities in imaging tests). [facility]Asp[facility] Transfer)2022-04-24 06:06:11 Test Item Value Reference Range Interpretation Comments AST(SGOT) (test code = 6703415952) 22 U/L 13-40 Lab Interpretation (test code = Normal 13703-6) [facility] (SGPT)2022-04-24 06:06:11 Test Item Value Reference Range Interpretation Comments ALTv (test code = 1742-6) 19 U/L 5-35 Lab Interpretation (test code = Normal 85732-2) [facility] CenterLactate Bcnfgfuxsusym2085-89-06 06:05:30 Test Item Value Reference Range Interpretation Comments LDH (test code = 7354363960) 178 U/L 120-246 Lab Interpretation (test code = Normal 23481-1) [facility] Center[facility] Disqrdtcxlitm5569-71-47 06:05:30 Test Item Value Reference Range Interpretation Comments LDH (test code = 7835734490) 178 U/L 120-246 Lab Interpretation (test code = Normal 69883-0) [facility] CenterHIV [facility]/2 AG-AB WITH [id number] 05:41:30 Test Item Value Reference Range Interpretation Comments HIV 0.08 Negative Semi-quantitative (test code = 35033-0) MELVIN (test code = Non-reactive for HIV-1 MELVIN) antigen and HIV-1/HIV-2 antibodies. ?No laboratory evidence of HIV infection. ?Repeat in 2-4 weeks if acute HIV infection is suspected. [facility] [id number] 05:41:30 Test Item Value Reference Range Interpretation Comments HIV 0.08 Negative Semi-quantitative (test code = 52259-2) MELVIN (test code = Non-reactive for HIV-1 MELVIN) antigen and HIV-1/HIV-2 antibodies. ?No laboratory evidence of HIV infection. ?Repeat in 2-4 weeks if acute HIV infection is suspected. [facility] B Surface Nbgquzq6228-59-97 04:25:16 Test Item Value Reference Range Interpretation Comments HBsAg Semi-Quantitative (test code = 0.05 Negative 5195-3) [facility] Surface Dcvynag5293-64-39 04:25:16 Test Item Value Reference Range Interpretation Comments HBsAg Semi-Quantitative (test code = 0.05 Negative 5195-3) [facility] and Screen - ONCE [id number] 03:37:42 Test Item Value Reference Range Interpretation Comments ABO & RH (test code O POSITIVE Performe d at [facility] = 20) Laboratory [facility] [place] [address]Wgga Free: [phone] A No. [id number] IAT (test code = Negative Performed a t [facility] 1185) Laboratory [facility] [address] [place] [id number] Free: [phone] A No. [id number] [facility] and Screen - ONCE [id number] 03:37:42 Test Item Value Reference Range Interpretation Comments ABO & RH (test code O POSITIVE Performe d at [facility] = 20) Laboratory [facility] [address] [place] [id number] Free: [phone] A No. [id number] IAT (test code = Negative Performed a t [facility] 1185) Laboratory [facility] [place] [address] s [id number] Free: [phone] A No. [id number] [facility] with Ufmsgnwsaxqw6890-29-05 03:28:48 Test Item Value Reference Range Interpretation Comments WBC (test code = 7.20 See_Comment [Automated 0757-2) message] The sy stem which generated this result transmitted reference range : 4.30 - 11.10 10*3/?L. The reference range was not used to interpret this result as normal/abnormal . RBC (test code = 4.58 See_Comment [Automated 789-8) message] The sy stem which generated this result transmitted reference range : 3.93 - 5.25 10*6/?L. The reference range was not used to interpret this result as normal/abnormal . HGB (test code = 10.7 g/dL 11.6-15.0 L 718-7) HCT (test code = 34.6 % 35.7-45.2 L 4544-3) MCV (test code = 75.5 fL 80.6-95.5 L 787-2) MCH (test code = 23.4 pg 25.9-32.8 L 785-6) MCHC (test code = 30.9 g/dL 31.6-35.1 L 786-4) RDW-SD (test code = 46.3 fL 39.0-49.9 57171-8) RDW-CV (test code = 18.0 % 12.0-15.5 H 788-0) PLT (test code = 237 See_Comment [Automated 777-3) message] The sy stem which generated this result transmitted reference range : 166 - 358 10*3/ ?L. The reference r helene was not used to interpret this result as normal/abnormal . MPV (test code = 12.1 fL 9.5-12.9 15119-9) NRBC/100 WBC (test 0.0 See_Comment [Automat ed code = 7018916461) message] The system which generated this result transmitted reference range : 0.0 - 10.0 /100 WBCs. The refer ence range was not u sed to interpret th is result as normal/abnormal . NRBC x10^3 (test code See_Comment [Auto mated = 6887349449) message] The s ystem which generated this result transmitted reference range : 10*3/?L. The reference range was not used to interpret this result as normal/abnormal . GRAN MAT (NEUT) % 66.3 % (test code = 770-8) IMM GRAN % (test code 0.70 % = 9739733356) LYMPH % (test code = 22.1 % 736-9) MONO % (test code = 8.1 % 5905-5) EOS % (test code = 2.2 % 713-8) BASO % (test code = 0.6 % 706-2) GRAN MAT x10^3(ANC) 4.78 10*3/uL 1.88-7.09 (test code = 6310547245) IMM GRAN x10^3 (test 0.05 10*3/uL 0.00-0.06 code = 3266755272) LYMPH x10^3 (test code 1.59 10*3/uL 1.32-3.29 = 731-0) MONO x10^3 (test code 0.58 10*3/uL 0.33-0.92 = 742-7) EOS x10^3 (test code = 0.16 10*3/uL 0.03-0.39 711-2) BASO x10^3 (test code 0.04 10*3/uL 0.01-0.07 = 704-7) Lab Interpretation Abnormal (test code = 35292-8) [facility] with Hgdbievmydql1843-85-62 03:28:48 Test Item Value Reference Range Interpretation Comments WBC (test code = 7.20 See_Comment [Automated 1890-2) message] The sy stem which generated this result transmitted reference range : 4.30 - 11.10 10*3/?L. The reference range was not used to interpret this result as normal/abnormal . RBC (test code = 4.58 See_Comment [Automated 579-8) message] The sy stem which generated this result transmitted reference range : 3.93 - 5.25 10*6/?L. The reference range was not used to interpret this result as normal/abnormal . HGB (test code = 10.7 g/dL 11.6-15.0 L 718-7) HCT (test code = 34.6 % 35.7-45.2 L 4544-3) MCV (test code = 75.5 fL 80.6-95.5 L 787-2) MCH (test code = 23.4 pg 25.9-32.8 L 785-6) MCHC (test code = 30.9 g/dL 31.6-35.1 L 786-4) RDW-SD (test code = 46.3 fL 39.0-49.9 13159-3) RDW-CV (test code = 18.0 % 12.0-15.5 H 788-0) PLT (test code = 237 See_Comment [Automated 777-3) message] The sy stem which generated this result transmitted reference range : 166 - 358 10*3/ ?L. The reference r helene was not used to interpret this result as normal/abnormal . MPV (test code = 12.1 fL 9.5-12.9 19177-5) NRBC/100 WBC (test 0.0 See_Comment [Automat ed code = 9018522445) message] The system which generated this result transmitted reference range : 0.0 - 10.0 /100 WBCs. The refer ence range was not u sed to interpret th is result as normal/abnormal . NRBC x10^3 (test code See_Comment [Auto mated = 6320614666) message] The s ystem which generated this result transmitted reference range : 10*3/?L. The reference range was not used to interpret this result as normal/abnormal . GRAN MAT (NEUT) % 66.3 % (test code = 770-8) IMM GRAN % (test code 0.70 % = 7453602159) LYMPH % (test code = 22.1 % 736-9) MONO % (test code = 8.1 % 5905-5) EOS % (test code = 2.2 % 713-8) BASO % (test code = 0.6 % 706-2) GRAN MAT x10^3(ANC) 4.78 10*3/uL 1.88-7.09 (test code = 6709321563) IMM GRAN x10^3 (test 0.05 10*3/uL 0.00-0.06 code = 7536544980) LYMPH x10^3 (test code 1.59 10*3/uL 1.32-3.29 = 731-0) MONO x10^3 (test code 0.58 10*3/uL 0.33-0.92 = 742-7) EOS x10^3 (test code = 0.16 10*3/uL 0.03-0.39 711-2) BASO x10^3 (test code 0.04 10*3/uL 0.01-0.07 = 704-7) Lab Interpretation Abnormal (test code = 42072-5) [facility] URINALYSIS W SPECIFIC [id number] 14:02:00 Test Item Value Reference Range Interpretation Comments POCT U SP GRAV (test code = . 1.005-1.025 3255) POCT PH U (test code = 3254) . 5-8 POCT U LEUK EST (test code = . Negative - Negative 3263) POCT U NIT (test code = 3262) . Negative - Negative POCT U PROT (test code = 3259) trace Negative - Negative POCT U GLU (test code = 3256) negative Negative - Negative POCT U KETONE (test code = 3258) . Negative - Negative POCT U UROBILI (test code = . 0.2-1 3260) POCT U BILI (test code = 3261) . Negative - Negative POCT U BLD (test code = 3257) . Negative - Negative POCT U COLOR (test code = 3266) POCT U APPEAR (test code = 3267) [facility] URINALYSIS W SPECIFIC [id number] 19:12:00 Test Item Value Reference Range Interpretation Comments POCT U SP GRAV (test code = . 1.005-1.025 3255) POCT PH U (test code = 3254) . 5-8 POCT U LEUK EST (test code = . Negative - Negative 3263) POCT U NIT (test code = 3262) . Negative - Negative POCT U PROT (test code = 3259) trace Negative - Negative POCT U GLU (test code = 3256) negative Negative - Negative POCT U KETONE (test code = 3258) . Negative - Negative POCT U UROBILI (test code = . 0.2-1 3260) POCT U BILI (test code = 3261) . Negative - Negative POCT U BLD (test code = 3257) . Negative - Negative POCT U COLOR (test code = 3266) . POCT U APPEAR (test code = 3267) . [facility] URINALYSIS W SPECIFIC [id number] 14:57:00 Test Item Value Reference Range Interpretation Comments POCT U SP GRAV (test code = 3255) . 1.005-1.025 POCT PH U (test code = 3254) . 5-8 POCT U LEUK EST (test code = 3263) . Negative - Negative POCT U NIT (test code = 3262) . Negative - Negative POCT U PROT (test code = 3259) 1+ Negative - Negative POCT U GLU (test [...] U APPEAR (test code = 3267) . [facility] URINALYSIS W SPECIFIC [id number] 15:24:00 Test Item Value Reference Range Interpretation Comments POCT U SP GRAV (test code = . 1.005-1.025 3255) POCT PH U (test code = 3254) . 5-8 POCT U LEUK EST (test code = . Negative - Negative 3) POCT U NIT (test code = 3262) . Negative - Negative POCT U PROT (test code = 3259) trace Negative - Negative POCT U GLU (test code = 3256) negative Negative - Negative POCT U KETONE (test code = 3258) . Negative - Negative POCT U UROBILI (test code = . 0.2-1 3260) POCT U BILI (test code = 3261) . Negative - Negative POCT U BLD (test code = 3257) . Negative - Negative POCT U COLOR (test code = 3266) . POCT U APPEAR (test code = 3267) . [facility] URINALYSIS W SPECIFIC [id number] 15:24:00 Test Item Value Reference Range Interpretation Comments POCT U SP GRAV (test code = . 1.005-1.025 3255) POCT PH U (test code = 3254) . 5-8 POCT U LEUK EST (test code = . Negative - Negative 3) POCT U NIT (test code = 3262) . Negative - Negative POCT U PROT (test code = 3259) trace Negative - Negative POCT U GLU (test code = 3256) negative Negative - Negative POCT U KETONE (test code = 3258) . Negative - Negative POCT U UROBILI (test code = . 0.2-1 3260) POCT U BILI (test code = 3261) . Negative - Negative POCT U BLD (test code = 3257) . Negative - Negative POCT U COLOR (test code = 3266) . POCT U APPEAR (test code = 3267) . [facility] URINALYSIS W SPECIFIC [id number] 15:24:00 Test Item Value Reference Range Interpretation Comments POCT U SP GRAV (test code = . 1.005-1.025 3255) POCT PH U (test code = 3254) . 5-8 POCT U LEUK EST (test code = . Negative - Negative 3263) POCT U NIT (test code = 3262) . Negative - Negative POCT U PROT (test code = 3259) trace Negative - Negative POCT U GLU (test code = 3256) negative Negative - Negative POCT U KETONE (test code = 3258) . Negative - Negative POCT U UROBILI (test code = . 0.2-1 3260) POCT U BILI (test code = 3261) . Negative - Negative POCT U BLD (test code = 3257) . Negative - Negative POCT U COLOR (test code = 3266) . POCT U APPEAR (test code = 3267) . [facility] URINALYSIS W SPECIFIC [id number] 15:24:00 Test Item Value Reference Range Interpretation Comments POCT U SP GRAV (test code = . 1.005-1.025 3255) POCT PH U (test code = 3254) . 5-8 POCT U LEUK EST (test code = . Negative - Negative 3263) POCT U NIT (test code = 3262) . Negative - Negative POCT U PROT (test code = 3259) trace Negative - Negative POCT U GLU (test code = 3256) negative Negative - Negative POCT U KETONE (test code = 3258) . Negative - Negative POCT U UROBILI (test code = . 0.2-1 3260) POCT U BILI (test code = 3261) . Negative - Negative POCT U BLD (test code = 3257) . Negative - Negative POCT U COLOR (test code = 3266) . POCT U APPEAR (test code = 3267) . [facility] [id number] 19:23:00 Test Item Value Reference Range Interpretation Comments POCT U SP GRAV (test code = . 1.005-1.025 3255) POCT PH U (test code = 3254) 0.6 mg/dl 5-8 A POCT U LEUK EST (test code = 2+ Negative - Negative 3263) POCT U NIT (test code = 3262) Neg Negative - Negative POCT U PROT (test code = 3259) Trace Negative - Negative POCT U GLU (test code = 3256) Neg Negative - Negative POCT U KETONE (test code = None Negative - Negative 3258) POCT U UROBILI (test code = . 0.2-1 3260) POCT U BILI (test code = 3261) . Negative - Negative POCT U BLD (test code = 3257) Trace Negative - Negative POCT U COLOR (test code = 3266) . POCT U APPEAR (test code = 3267) Lab Interpretation (test code = Abnormal 94614-2) [facility] SYPHILIS [id number] 19:05:10 Test Item Value Reference Range Interpretation Comments Syphilis IgG/IgM (test Non-reactive Non-reactive code = 23808-2) MELVIN (test code = MELVIN) Non-reactive - No serologic evidence of T. pallidum infection. Cannot exclude incubating or early syphilis. Submit a second specimen in 2-4 weeks if syphilis is clinically suspected. Equivocal - Further testing to follow. Reactive - Further testing to follow. Lab Interpretation (test Normal code = 71825-2) [facility] WITH [id number] 08:36:57 Test Item Value Reference Range Interpretation Comments HIV Negative Negative Semi-quantitative (test code = 42238-4) MELVIN (test code = Non-reactive for HIV-1 MELVIN) antigen and HIV-1/HIV-2 antibodies. ?No laboratory evidence of HIV infection. ?Repeat in 2-4 weeks if acute HIV infection is suspected. [facility] HR GLUCOSE TOLERANCE [id number] 06:22:04 Test Item Value Reference Range Interpretation Comments GLUC 3 HR (test code = 5020010706) 128 mg/dL 70-110 H Lab Interpretation (test code = Abnormal 08373-6) [facility] HR GLUCOSE TOLERANCE [id number] 06:20:02 Test Item Value Reference Range Interpretation Comments GLUC 1 HR (test code = 5251304020) 129 mg/dL 120-170 Lab Interpretation (test code = Normal 98363-6) [facility] HR GLUCOSE TOLERANCE [id number] 06:20:02 Test Item Value Reference Range Interpretation Comments GLUC 2 HR (test code = 8388359928) 133 mg/dL 70-120 H Lab Interpretation (test code = Abnormal 00480-1) [facility] CenterGLUCOSE [id number] 06:19:01 Test Item Value Reference Range Interpretation Comments GLU FASTNG (test code = 5275575394) 79 mg/dL 70-110 Lab Interpretation (test code = Normal 05103-6) [facility] W SPECIFIC [id number] 14:29:00 Test Item Value Reference Range Interpretation Comments POCT U SP GRAV (test code = 3255) . 1.005-1.025 POCT PH U (test code = 3254) . 5-8 POCT U LEUK EST (test code = 3263) . Negative - Negative POCT U NIT (test code = 3262) . Negative - Negative POCT U PROT (test code = 3259) Neg Negative - Negative POCT U GLU (test code = 3256) Neg Negative - Negative POCT U KETONE (test code = 3258) . Negative - Negative POCT U UROBILI (test code = 3260) . 0.2-1 POCT U BILI (test code = 3261) . Negative - Negative POCT U BLD (test code = 3257) . Negative - Negative POCT U COLOR (test code = 3266) .. POCT U APPEAR (test code = 3267) . [facility] SPECIFIC [id number] 20:27:00 Test Item Value Reference Range Interpretation Comments POCT U SP GRAV (test code = . 1.005-1.025 3255) POCT PH U (test code = 3254) . 5-8 POCT U LEUK EST (test code = . Negative - Negative 3263) POCT U NIT (test code = 3262) . Negative - Negative POCT U PROT (test code = 3259) trace Negative - Negative POCT U GLU (test code = 3256) negative Negative - Negative POCT U KETONE (test code = 3258) . Negative - Negative POCT U UROBILI (test code = . 0.2-1 3260) POCT U BILI (test code = 3261) . Negative - Negative POCT U BLD (test code = 3257) . Negative - Negative POCT U COLOR (test code = 3266) POCT U APPEAR (test code = 3267) [facility]. METABOLIC PANEL (90992)2022-02-06 02:30:30 Test Item Value Reference Range Interpretation Comments NA (test code = 136 mmol/L 135-145 6081883511) K (test code = 3.4 mmol/L 3.5-5.0 L 9184419487) CL (test code = 107 mmol/L 98-108 9160873751) CO2 TOTAL (test code = 23 mmol/L 23-31 7066049947) AGAP (test code = 2-16 3313008116) BUN (test code = 5 mg/dL 7-23 L 8831633234) GLUCOSE (test code = 61 mg/dL 70-110 L 0816406022) CREATININE (test code = 0.50 mg/dL 0.50-1.04 1209702870) TOTAL BILI (test code = 0.4 mg/dL 0.1-1.3 4871652990) CALCIUM (test code = 8.8 mg/dL 8.6-10.6 6073339456) T PROTEIN (test code = 6.4 g/dL 6.3-8.2 0216066241) ALBUMIN (test code = 3.5 g/dL 3.5-5.0 6060280766) ALK PHOS (test code = 106 U/L 34-122 2411498340) ALTv (test code = 29 U/L 5-35 1742-6) AST(SGOT) (test code = 31 U/L 13-40 3303011482) eGFR (test code = mL/min/1.73m2 2850060923) MELVIN (test code = MELVIN) Association of Glomerular Filtration Rate (GFR) and Staging of Kidney Disease* + --+ --+ ------+| GFR (mL/min/1.73 m2) ?| With Kidney Damage ?| ?Without Kidney Damage+ --------+ --------+ +| ?>90 ?| ?Stage one ?| ? Normal ?+ ---+ ---+ -------+| ?60-89 ?| ?Stage two ?| ? Decreased GFR ? + --+ --+ ------+| ?30-59 ?| ?Stage three ?| ? Stage three ? + --+ --+ ------+| ?15-29 ?| ?Stage four ? | ? Stage four ?+ ---+ ---+ -------+| ?<15 (or dialysis) ? ?| ?Stage five ? | ? Stage five ?+ ---+ ---+ -------+ *Each stage assumes the associated GFR level has been in effect for at least three months. ?Stages 1 to 5, with or without kidney disease, indicate chronic kidney disease. Notes: Determination of stages one and two (with eGFR >59mL/min/1.73 m2) requires estimation of kidney damage for at least three months as defined by structural or functional abnormalities of the kidney, manifested by either:Pathological abnormalities or Markers of kidney damage (including abnormalities in the composition of the blood or urine or abnormalities in imaging tests). Lab Interpretation Abnormal (test code = 50593-1) [facility]IP[facility] 02:18:17 Test Item Value Reference Range Interpretation Comments LIPASE (test code = 1326424687) 60 U/L 0-220 Lab Interpretation (test code = Normal 88321-7) [facility]AMYL[facility] 02:17:16 Test Item Value Reference Range Interpretation Comments SHAYNA (test code = 1110227138) 74 U/L 35-110 Lab Interpretation (test code = Normal 08183-8) [facility]CB WITH [id number] 01:45:14 Test Item Value Reference Range Interpretation Comments WBC (test code = See_Comment [Automated 2790-2) message] The sy stem which generated this result transmitted reference range : 4.30 - 11.10 10*3/?L. The reference range was not used to interpret this result as normal/abnormal . RBC (test code = See_Comment [Automated 789-8) message] The sy stem which generated this result transmitted reference range : 3.93 - 5.25 10*6/?L. The reference range was not used to interpret this result as normal/abnormal . HGB (test code = 10.3 g/dL 11.6-15.0 L 718-7) HCT (test code = 31.2 % 35.7-45.2 L 4544-3) MCV (test code = 79.2 fL 80.6-95.5 L 787-2) MCH (test code = 26.1 pg 25.9-32.8 785-6) MCHC (test code = 33.0 g/dL 31.6-35.1 786-4) RDW-SD (test code = 34.9 fL 39.0-49.9 L 68882-7) RDW-CV (test code = 12.2 % 12.0-15.5 788-0) PLT (test code = See_Comment [Automated 777-3) message] The sy stem which generated this result transmitted reference range : 166 - 358 10*3/ ?L. The reference r helene was not used to interpret this result as normal/abnormal . MPV (test code = 10.6 fL 9.5-12.9 64794-2) NRBC/100 WBC (test See_Comment [Automat ed code = 2561846040) message] The system which generated this result transmitted reference range : 0.0 - 10.0 /100 WBCs. The refer ence range was not u sed to interpret th is result as normal/abnormal . NRBC x10^3 (test code See_Comment [Auto mated = 0532141865) message] The s ystem which generated this result transmitted reference range : 10*3/?L. The reference range was not used to interpret this result as normal/abnormal . GRAN MAT (NEUT) % 59.2 % (test code = 770-8) IMM GRAN % (test code 1.10 % = 5091541163) LYMPH % (test code = 27.4 % 736-9) MONO % (test code = 8.2 % 5905-5) EOS % (test code = 3.5 % 713-8) BASO % (test code = 0.6 % 706-2) GRAN MAT x10^3(ANC) 3.75 10*3/uL 1.88-7.09 (test code = 8923585249) IMM GRAN x10^3 (test 0.07 10*3/uL 0.00-0.06 H code = 6229912196) LYMPH x10^3 (test code 1.74 10*3/uL 1.32-3.29 = 731-0) MONO x10^3 (test code 0.52 10*3/uL 0.33-0.92 = 742-7) EOS x10^3 (test code = 0.22 10*3/uL 0.03-0.39 711-2) BASO x10^3 (test code 0.04 10*3/uL 0.01-0.07 = 704-7) Lab Interpretation Abnormal (test code = 06247-9) [facility] Hour Post [id number] 06:43:02 Test Item Value Reference Range Interpretation Comments GLUC 1 HR (test code = 4911550452) 156 mg/dL 120-170 Lab Interpretation (test code = Normal 12982-8) [facility] with [id number] 06:16:22 Test Item Value Reference Range Interpretation Comments WBC (test code = See_Comment [Automated 6290-2) message] The sy stem which generated this result transmitted reference range : 4.30 - 11.10 10*3/?L. The reference range was not used to interpret this result as normal/abnormal . RBC (test code = See_Comment [Automated 969-8) message] The sy stem which generated this result transmitted reference range : 3.93 - 5.25 10*6/?L. The reference range was not used to interpret this result as normal/abnormal . HGB (test code = 10.9 g/dL 11.6-15.0 L 718-7) HCT (test code = 34.8 % 35.7-45.2 L 4544-3) MCV (test code = 83.5 fL 80.6-95.5 787-2) MCH (test code = 26.1 pg 25.9-32.8 785-6) MCHC (test code = 31.3 g/dL 31.6-35.1 L 786-4) RDW-SD (test code = 36.9 fL 39.0-49.9 L 43263-9) RDW-CV (test code = 12.1 % 12.0-15.5 788-0) PLT (test code = See_Comment [Automated 777-3) message] The sy stem which generated this result transmitted reference range : 166 - 358 10*3/ ?L. The reference r helene was not used to interpret this result as normal/abnormal . MPV (test code = 11.3 fL 9.5-12.9 13229-5) NRBC/100 WBC (test See_Comment [Automat ed code = [id number]) message] The system which generated this result transmitted reference range : 0.0 - 10.0 /100 WBCs. The refer ence range was not u sed to interpret th is result as normal/abnormal . NRBC x10^3 (test code See_Comment [Auto mated = [id number]) message] The s ystem which generated this result transmitted reference range : 10*3/?L. The reference range was not used to interpret this result as normal/abnormal . GRAN MAT (NEUT) % 67.0 % (test code = 770-8) IMM GRAN % (test code 1.30 % = [id number]) LYMPH % (test code = 20.3 % 736-9) MONO % (test code = 5.8 % 5905-5) EOS % (test code = 4.9 % 713-8) BASO % (test code = 0.7 % 706-2) GRAN MAT x10^3(ANC) 4.48 10*3/uL 1.88-7.09 (test code = [id number]) IMM GRAN x10^3 (test 0.09 10*3/uL 0.00-0.06 H code = [id number]) LYMPH x10^3 (test code 1.36 10*3/uL 1.32-3.29 = 731-0) MONO x10^3 (test code 0.39 10*3/uL 0.33-0.92 = 742-7) EOS x10^3 (test code = 0.33 10*3/uL 0.03-0.39 711-2) BASO x10^3 (test code 0.05 10*3/uL 0.01-0.07 = 704-7) Lab Interpretation Abnormal (test code = 42893-3) [facility] URINALYSIS W SPECIFIC [id number] 15:44:00 Test Item Value Reference Range Interpretation Comments [...] POCT U COLOR (test code = 3266) POCT U APPEAR (test code = 3267) [facility] URINALYSIS W SPECIFIC [id number] 15:44:00 Test Item Value Reference Range Interpretation Comments [...] POCT U COLOR (test code = 3266) POCT U APPEAR (test code = 3267) [facility] URINALYSIS W SPECIFIC [id number] 15:44:00 Test Item Value Reference Range Interpretation Comments [...] POCT U COLOR (test code = 3266) POCT U APPEAR (test code = 3267) [facility] URINALYSIS W SPECIFIC [id number] 17:14:00 Test Item Value Reference Range Interpretation Comments POCT U SP GRAV (test code = . 1.005-1.025 3255) POCT PH U (test code = 3254) . 5-8 POCT U LEUK EST (test code = . Negative - Negative 3263) POCT U NIT (test code = 3262) . Negative - Negative POCT U PROT (test code = 3259) trace Negative - Negative POCT U GLU (test code = 3256) negative Negative - Negative POCT U KETONE (test code = 3258) . Negative - Negative POCT U UROBILI (test code = . 0.2-1 3260) POCT U BILI (test code = 3261) . Negative - Negative POCT U BLD (test code = 3257) . Negative - Negative POCT U COLOR (test code = 3266) . POCT U APPEAR (test code = 3267) . [facility] URINALYSIS W SPECIFIC [id number] 16:23:00 Test Item Value Reference Range Interpretation Comments [...] POCT U COLOR (test code = 3266) POCT U APPEAR (test code = 3267) [facility] URINALYSIS W SPECIFIC [id number] 18:17:00 Test Item Value Reference Range Interpretation Comments [...] POCT U APPEAR (test code = 3267) [facility] URINALYSIS W SPECIFIC [id number] 21:13:00 Test Item Value Reference Range Interpretation [...] U APPEAR (test code = 3267) . [id number] 19:38:00 Test Item Value Reference Range Interpretation [...] hours toconfirm . 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 Comparison: None Findings: The heart and mediastinum are not remarkable. Costophrenic angles are clear. Lungs are clear. Bone is unremarkable for age. Impression: 1. No radiographic evidence of acute cardiopulmonary disease. 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 [employer] Acct: [id number] Dis Date: Status: PRE ER PHONE #: [phone] Exam Date: 06/13/20181817 FAX #: [phone] Reason: sob EXAMS: CPT CODE: [id number] XR CHEST 1 V 41539 (Continued) Orig Print D/T: S: 06/13/2018 (183) PAGE 2 Signed Report- XR ANKLE 3 + V [id number] 17:13:00 [place]: St: REG -- Name: BRENNON MONTEMAYOR : 2000 Age/S: 17/F [address] Unit #: [id number] Loc: [place] [address] Phys: Juan David Luong Acct: [id number] Dis Date: Status: REG ER PHONE #: [phone] Exam Date: 05/15/2018 1648 FAX #: [phone] Reason: rolled ankle, pain, lateral aspect EXAMS: CPT CODE: [id number] XR ANKLE 3 + [place] RT [address] CLINICAL INFORMATION: Injury accident. Rolled ankle. Pain.. [...] likely an ossifying fibrous cortical defect or fibroma.IMPRESSION: 1. Soft tissue swelling, no acute fracture. 2. Benign-appearing distal tibial bone lesion. at 1713 Reported and signed by: Umair Knight MD CC: Technologist: ANGELICA CABRAL Trnscrd Date/Time/By: 05/15/2018 (2273) : By: ShellyAGVPAGE 1 Signed Report [place]: St: REG Name: BRENNON MONTEMAYOR : 2000 Age/S: 17/F [address] Unit #: [id number] Loc: [place] [address] Phys: Juan David Luong Acct: [id number] Dis Date: Status: REG ER PHONE #: [phone] Exam Date: 05/15/2018 1648 FAX #: [phone] Reason: rolled ankle, pain, lateral aspect EXAMS: CPT CODE: [id number] XR ANKLE 3 + V RT 06393 (Continued) Orig Print D/T:S: 05/15/2018 (7375) PAGE 2 Signed Report"
[2022-05-03 17:43] LABS: Urine Blood Negative (Negative); Urine Glucose Negative (Negative); Urine Protein Negative (Negative)
[2022-05-03 17:49] LABS: Absolute Lymphocytes (CBC) 1.6 K/uL (0.7-4.9); Hematocrit 35.6 % (36.0-45.0); Lymphocytes % 19.6 % (15.3-44.8); MCV 73.2 fL (80-100); MPV 6.8 fL (7.6-11.3); RBC Red Blood Cell Count 4.87 M/uL (3.86-4.86)
[2022-05-03] MEDS ORDERED: HYDROMORPHONE HCL 1 MG/ML INJ ONE (17:49)
[2022-05-03] MEDS ORDERED: HYDRALAZINE HCL 20 MG/ML VIAL ONE (17:49)
[2022-05-03] MEDS ORDERED: NA CHLORIDE 0.9% 1,000 ML ONE (17:50)
[2022-05-03] MEDS ORDERED: MAGNESIUM SULFATE 1 gm IVPB 1 GM/100 ML BAG IV ONE (17:50)
[2022-05-03 17:51] LABS: Urine Bacteria None Seen /HPF (<20); Urine Mucus 1+ /HPF (None Seen); Urine RBC <5 /HPF (None Seen)
--- NOTE | 2022-05-03 18:05 | RAD REPORT ---
EXAM DESCRIPTION: CT - CTHCSPWOC - 05/03/2022 5:54 pm CLINICAL HISTORY: Trauma, head and neck injury. HTN;Dizziness COMPARISON: No comparisons TECHNIQUE: Axial 5 mm thick images of the head were obtained. Axial 2 mm thick images of the cervical spine were obtained with sagittal and coronal reconstruction images generated and reviewed. All CT scans are performed using dose optimization technique as appropriate and may include automated exposure control or mA/KV adjustment according to patient size. FINDINGS: CT HEAD WITHOUT CONTRAST: No acute hemorrhage, hydrocephalus or extra-axial collection is identified.No areas of brain edema or midline shift. The paranasal sinuses and mastoids are clear.The calvarium is intact. CT CERVICAL SPINE WITHOUT CONTRAST: No fracture or subluxation.No prevertebral soft tissues swelling is identified. IMPRESSION: No acute intracranial or cervical spine findings.
[2022-05-03 18:13] LABS: Albumin 3.1 g/dL (3.4-5.0); Potassium 3.3 mmol/L (3.5-5.1)
[2022-05-03 18:19] LABS: Blood Morphology Comment NOTED (NOT SEEN); Platelet Estimate INCR; Polychromasia SLIGHT
[2022-05-03 18:20] LABS: Stomatocytes 1+
[2022-05-03 18:23] LABS: Bilirubin Total 0.3 mg/dL (0.2-1.0); Protein, Total 7.8 g/dL (6.4-8.2); Thyroid Stimulating Hormone 0.937 uIU/mL (0.358-3.740)
[2022-05-03] MEDS ORDERED: NA CHLORIDE 0.9% 500 ML ONE (20:18)
[2022-05-03] MEDS ORDERED: ACETAMINOPHEN 500 MG TAB ONE (22:17)
[2022-05-04 03:28] VITALS: TEMP 98.2
[2022-05-04 03:34] VITALS: BP 132/56; O2SAT 100
--- NOTE | 2022-05-16 16:22 | EDPHYS ---
Physician Documentation [facility] Name: Tanika Lawrence Age: 21 yrs Sex: Female : 2000 Arrival Date: 05/03/2022 Time: 17:08 Bed 19 Private MD: ED Physician Ronen Boo HPI: 05/03 22:50 This 21 yrs old Female presents to ER via Ambulatory with complaints of High Blood snw Pressure, Dizziness, Headache. 22:50 Onset: The symptoms/episode began/occurred acutely. Modifying factors: The symptoms are snw aggravated by movement, The symptoms are alleviated by nothing, pt had pre-eclampsia, status post C/S one week ago. Associated signs and symptoms: Pertinent positives: dizziness, lightheadedness, nausea, weakness. Severity of symptoms: At its worst the blood pressure was 169 mm Hg, 169/121. as noted. next appt with OB on Thursday. SURVIVAL SPECIALIST: 18:10 LMP N/A - Recent kc6 Historical: - Allergies: 17:20 No Known Allergies; mb9 - Home Meds: 17:20 None [Active]; mb9 - PMHx: 17:20 Asthma; mb9 - PSHx: 17:20 section; mb9 - Immunization history:: Adult Immunizations up to date. - Social history:: Smoking status: Reported history of juuling and/or vaping. ROS: 22:53 Constitutional: Negative for fever, chills, and weight loss, terrible headache Eyes: snw Negative for injury, pain, redness, and discharge, ENT: Negative for injury, pain, and discharge, Neck: Negative for injury, pain, and swelling, Abdomen/GI: Negative for abdominal pain, nausea, vomiting, diarrhea, and constipation, Back: Negative for injury and pain, : Negative for injury, bleeding, discharge, and swelling, MS/Extremity: Negative for injury and deformity, Skin: Negative for injury, rash, and discoloration. 22:53 Psych: Negative for depression, anxiety, suicide ideation, homicidal ideation, and hallucinations. 22:53 Cardiovascular: Positive for orthopnea, palpitations. 22:53 Respiratory: Positive for shortness of breath, at rest. 22:53 Neuro: Positive for dizziness, headache, near syncope, weakness. Exam: 17:55 Head/Face: Normocephalic, atraumatic. Eyes: Pupils equal round and reactive to light, snw extra-ocular motions intact. Lids and lashes normal. Conjunctiva and sclera are non-icteric and not injected. Cornea within normal limits. Periorbital areas with no swelling, redness, or edema. Denies Blurry vision ENT: Nares patent. No nasal discharge, no septal abnormalities noted. Tympanic membranes are normal and external auditory canals are clear. Oropharynx with no redness, swelling, or masses, exudates, or evidence of obstruction, uvula midline. Mucous membranes moist. Neck: Trachea midline, no thyromegaly or masses palpated, and no cervical lymphadenopathy. Supple, full range of motion without nuchal rigidity, or vertebral point tenderness. No Meningismus. Chest/axilla: Normal chest wall appearance and motion. Nontender with no deformity. No lesions are appreciated. 17:55 Respiratory: Lungs have equal breath sounds bilaterally, clear to auscultation and percussion. No rales, rhonchi or wheezes noted. No increased work of breathing, no retractions or nasal flaring. Abdomen/GI: Soft, non-tender, with normal bowel sounds. No distension or tympany. No guarding or rebound. No evidence of tenderness throughout. Back: No spinal tenderness. No costovertebral tenderness. Full range of motion. Skin: Warm, dry with normal turgor. Normal color with no rashes, no lesions, and no evidence of cellulitis. MS/ Extremity: Pulses equal, no cyanosis. Neurovascular intact. Full, normal range of motion. 17:55 Constitutional: The patient appears alert, anxious, in obvious pain, restless, uncomfortable. 17:55 Cardiovascular: Rate: tachycardic, Rhythm: regular, Heart sounds: normal, Edema: is not appreciated. 17:55 Abdomen/GI: Inspection: abdomen appears normal, Bowel sounds: normal, Palpation: abdomen is soft and non-tender, in all quadrants, pt denies abd pain, specifically RUQ pain. 17:55 Neuro: Orientation: is normal, Mentation: is normal, Memory: is normal, Sensation: is normal, seizure activity, is not displayed by the patient. Vital Signs: 17:17 BP 169 / 121; Pulse 127; Resp 20; Temp 98.2; Pulse Ox 100% ; Weight 58.97 kg; Height 5 mb9 ft. 2 in. ; Pain 10/10; 18:11 BP 157 / 97; Pulse 77; Resp 15 S; Pulse Ox 100% on R/A; Pain 10/10; kc6 18:15 BP 165 / 102; Pulse 102; Resp 16 S; Pulse Ox 100% on R/A; kc6 19:23 BP 149 / 95; Pulse 92; Resp 18; Pulse Ox 100% on R/A; ha1 20:21 BP 126 / 76; Pulse 87; Resp 13 S; Pulse Ox 100% on R/A; ha1 21:20 BP 132 / 91; Pulse 82; Resp 19 S; Pulse Ox 99% on R/A; ha1 22:20 BP 132 / 56; Pulse 77; Resp 18; Pulse Ox 100% on R/A; ha1 17:17 Body Mass Index 23.78 (58.97 kg, 157.48 cm) mb9 17:17 Pain Scale: Adult mb9 18:11 Pain Scale: Adult kc6 MDM: 17:26 Patient medically screened. snw 20:13 Data reviewed: vital signs, nurses notes, lab test result(s), radiologic studies. snw Historians other than the Patient: Spouse/Significant Other: Spouse. Counseling: I had a detailed discussion with the patient and/or guardian regarding: the historical points, exam findings, and any diagnostic results supporting the discharge/admit diagnosis, the presence of at least one elevated blood pressure reading (>120/80) during this emergency department visit, lab results, radiology results, the need for outpatient follow up, for definitive care. Response to treatment: the patient's symptoms have markedly improved after treatment, pt states headache zero from ten, blood pressure significantly down trended. 05/03 17:28 Order name: Magnesium; Complete Time: 18:25 snw 05/03 17:28 Order name: CBC with Diff; Complete Time: 18:25 snw 05/03 17:28 Order name: CMP; Complete Time: 18:25 snw 05/03 17:28 Order name: Lipase; Complete Time: 18:25 snw 05/03 17:28 Order name: Urine Microscopic Only; Complete Time: 18:04 snw 05/03 17:28 Order name: TSH; Complete Time: 18:25 snw 05/03 17:28 Order name: Urine For Protein, Random; Complete Time: 17:54 snw 05/03 17:28 Order name: Blood Culture Adult (2) snw 05/03 17:43 Order name: Urine Dipstick-Ancillary; Complete Time: 17:52 EDMS 05/03 17:47 Order name: Urine --Ancillary (enter results); Complete Time: 17:54 kj1 05/03 17:53 Order name: Manual Differential; Complete Time: 18:25 EDMS 05/03 17:28 Order name: CT Head C Spine; Complete Time: 18:08 snw 05/03 17:28 Order name: IV Saline Lock; Complete Time: 17:42 snw 05/03 17:28 Order name: Labs collected and sent; Complete Time: 17:42 snw 05/03 17:28 Order name: Urine Dipstick-Ancillary (obtain specimen); Complete Time: 17:42 snw Administered Medications: 18:10 Drug: NS 0.9% IV 1000 ml Route: IV; Rate: 1 bolus; Site: right antecubital; 6 19:17 Follow up: Response: No adverse reaction; IV Status: Completed infusion; IV Intake: kc6 1000ml 18:10 Drug: Magnesium Sulfate IVPB 1 grams Route: IVPB; Infused Over: 1 hrs; Site: right kc6 antecubital; 19:16 Follow up: Response: No adverse reaction; IV Status: Completed infusion; IV Intake: kc6 100ml 18:10 Drug: HYDROmorphone IVP 1 mg Route: IVP; Site: right antecubital; kc6 19:16 Follow up: Response: No adverse reaction; Pain is decreased; RASS: Alert and Calm (0) kc6 18:10 Drug: hydrALAZINE IVP 5 mg Route: IVP; Site: right antecubital; kc6 19:16 Follow up: Response: No adverse reaction; Blood pressure is lowered kc6 20:18 Drug: NS 0.9% IV 500 ml Route: IV; Rate: bolus; Site: right antecubital; ha1 22:18 Drug: Acetaminophen PO 1000 mg Route: PO; ha1 Disposition: 05/04 16:53 Co-signature as Attending Physician, Ronen Boo MD I reviewed the patient's care rt provided by the Advanced Practice Provider and agree with the diagnosis and treatment plan. Disposition Summary: 05/03/22 22:45 Discharge Ordered Location: Home snw Condition: Stable snw Diagnosis - Other secondary hypertension - pre-eclampsia s/p delivery snw Followup: snw - With: Emergency Department - When: As needed - Reason: Worsening of condition Followup: snw - With: Private Physician - When: 2 - 3 days - Reason: Recheck today's complaints, Continuance of care, Re-evaluation by your physician Discharge Instructions: - Discharge Summary Sheet snw - Hypertension, Adult snw - Preeclampsia and Eclampsia snw - Form - Blood Pressure Record Sheet snw - How to Take Your Blood Pressure snw Forms: - Medication Reconciliation Form snw - Thank You Letter snw - Antibiotic Education snw - Prescription Opioid Use snw Prescriptions: - Procardia XL 60 mg Oral Tablet, Extended Release 24 hr - take 1 tablet by ORAL route daily; 45 tablet; Refills: 0, Product Selection snw Permitted Signatures: Dispatcher [employer] EDMS Anika Hutchinson, CONSTANCE-C AUTOMATIC WASHER MECHANIC-Csnw Preethi Hutchison RN RN ha1 Giovanna Salinas RN RN [email or web address] Mya Villa RN RN mb9 Ronen Boo MD MD rt Corrections: (The following items were deleted from the chart) 05/03 17:21 17:20 Home Meds: Albuterol Inhl; amanda mb9
--- NOTE | 2022-05-16 16:22 | ER ---
Nurse's Notes [facility] Name: Tanika Lawrence Age: 21 yrs Sex: Female : 2000 Arrival Date: 05/03/2022 Time: 17:08 Bed 19 Private MD: Diagnosis: Other secondary gildbkrqqovt-ljb-[id number] s/p delivery Presentation: 05/03 17:17 Chief complaint: Patient states: "I've been having trouble with my BP ever since giving mb9 7 days ago. Our PCP is worried about eclampsia. My head hurts like a migraine and I'm dizzy". Coronavirus screen: Vaccine status: Patient reports receiving the 2nd dose of the covid vaccine. Ebola Screen: No symptoms or risks identified at this time. Initial Sepsis Screen: Does the patient meet any 2 criteria? No. Patient's initial sepsis screen is negative. Does the patient have a suspected source of infection? No. Patient's initial sepsis screen is negative. Risk Assessment: Do you want to hurt yourself or someone else? Patient reports no desire to harm self or others. Onset of symptoms was April 24, 2022. 17:17 Method Of Arrival: Ambulatory 9 17:17 Acuity: SILVIA 2 aa5 Triage Assessment: 17:23 General: Appears uncomfortable, Behavior is anxious, crying. Pain: Complains of pain in mb9 head. Neuro: Level of Consciousness is awake, alert, obeys commands, Oriented to person, place, time, situation, Appropriate for age Reports blurred vision dizziness. Respiratory: Airway is patent Respiratory effort is even, unlabored, Respiratory pattern is regular, symmetrical. GI: Patient currently denies abdominal pain. Derm: Skin is pink, warm \\T\\ dry. Musculoskeletal: Range of motion: intact in all extremities. 17:23 Headache History: Denies prior headaches. Pain: Pain began gradually. 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 - Social history:: Smoking status: Reported history of juuling and/or vaping. Screenin:23 [facility] ED Fall Risk Assessment (Adult) History of falling in the last 3 months, mb9 including since admission No falls in past 3 months (0 pts) Confusion or Disorientation No (0 pts) Intoxicated or Sedated No (0 pts) Impaired Gait No (0 pts) Mobility Assist Device Used No (0 pt) Altered Elimination No (0 pt) Score/Fall Risk Level 0 - 2 = Low Risk Oriented to surroundings, Maintained a safe environment, Educated pt \\T\\ family on fall prevention, incl call for assistance when getting out of bed. Abuse screen: Denies threats or abuse. Nutritional screening: No deficits noted. Tuberculosis screening: No symptoms or risk factors identified. Assessment: 18:10 General: Appears in no apparent distress. uncomfortable, Behavior is cooperative, kc6 appropriate for age, crying. Pain: Complains of pain in "headache" Pain does not radiate. Pain currently is 10 out of 10 on a pain scale. Quality of pain is described as pressure, throbbing, Is continuous, Alleviated by nothing. Noted to be crying, moaning, resistant to movement, Also complains of no other associated symptoms. Neuro: Joyner Agitation-Sedation Scale (RASS): +1 Restless Level of Consciousness is awake, alert, obeys commands, Oriented to person, place, time, situation, Appropriate for age. Cardiovascular: Heart tones S1 S2 present Capillary refill < 3 seconds Rhythm is sinus rhythm. Respiratory: Airway is patent Trachea midline Respiratory effort is even, unlabored, Respiratory pattern is regular, symmetrical, Breath sounds are clear bilaterally. GI: No signs and/or symptoms were reported involving the gastrointestinal system. : No signs and/or symptoms were reported regarding the genitourinary system. EENT: No signs and/or symptoms were reported regarding the EENT system. Derm: No signs and/or symptoms reported regarding the dermatologic system. Skin is intact, Skin is dry, Skin is pale, Skin temperature is warm. Musculoskeletal: No signs and/or symptoms reported regarding the musculoskeletal system. Circulation, motion, and sensation intact. Capillary refill < 3 seconds, Range of motion: intact in all extremities. 18:45 Reassessment: Patient appears in no apparent distress at this time. No changes from kc6 previously documented assessment. Patient and/or family updated on plan of care and expected duration. Pain level reassessed. Patient is alert, oriented x 3, equal unlabored respirations, skin warm/dry/pink. 19:22 Reassessment: Patient and/or family updated on plan of care and expected duration. Pain ha1 level reassessed. Patient is alert, oriented x 3, equal unlabored respirations, skin warm/dry/pink. pain 8/10. Neuro: Level of Consciousness is awake, alert, obeys commands, Oriented to person, place, time, situation, Reports headache in entire. Respiratory: Airway is patent Respiratory effort is even, unlabored, Respiratory pattern is regular, symmetrical. 20:21 Reassessment: Patient and/or family updated on plan of care and expected duration. Pain ha1 level reassessed. Patient is alert, oriented x 3, equal unlabored respirations, skin warm/dry/pink. 21:20 Reassessment: Patient and/or family updated on plan of care and expected duration. Pain ha1 level reassessed. Patient is alert, oriented x 3, equal unlabored respirations, skin warm/dry/pink. 22:20 Reassessment: Patient and/or family updated on plan of care and expected duration. Pain ha1 level reassessed. Patient is alert, oriented x 3, equal unlabored respirations, skin warm/dry/pink. Patient states feeling better. Patient states symptoms have improved. 23:12 Reassessment: Patient and/or family updated on plan of care and expected duration. Pain ha1 level reassessed. Patient is alert, oriented x 3, equal unlabored respirations, skin warm/dry/pink. Vital Signs: 17:17 BP 169 / 121; Pulse 127; Resp 20; Temp 98.2; Pulse Ox 100% ; Weight 58.97 kg; Height 5 mb9 ft. 2 in. ; Pain 10/10; 18:11 BP 157 / 97; Pulse 77; Resp 15 S; Pulse Ox 100% on R/A; Pain 10/10; kc6 18:15 BP 165 / 102; Pulse 102; Resp 16 S; Pulse Ox 100% on R/A; kc6 19:23 BP 149 / 95; Pulse 92; Resp 18; Pulse Ox 100% on R/A; ha1 20:21 BP 126 / 76; Pulse 87; Resp 13 S; Pulse Ox 100% on R/A; ha1 21:20 BP 132 / 91; Pulse 82; Resp 19 S; Pulse Ox 99% on R/A; ha1 22:20 BP 132 / 56; Pulse 77; Resp 18; Pulse Ox 100% on R/A; ha1 17:17 Body Mass Index 23.78 (58.97 kg, 157.48 cm) mb9 17:17 Pain Scale: Adult mb9 18:11 Pain Scale: Adult kc6 ED Course: 17:08 Patient arrived in ED. mr 17:09 Anika Hutchinson FNP-C [facility] snw 17:09 Ronen Boo MD is Attending Physician. snw 17:20 Triage completed. mb9 17:21 Arm band placed on. mb9 17:23 Bed in low position. Call light in reach. Side rails up X 1. Client placed on mb9 continuous cardiac and pulse oximetry monitoring. NIBP monitoring applied. solar installation helper on. 17:41 Giovanna Salinas, RN is Primary Nurse. kc6 17:42 Urine Microscopic Only Sent. mb9 17:42 Lipase Sent. mb9 17:43 CMP Sent. mb9 17:43 CBC with Diff Sent. mb9 17:43 Magnesium Sent. mb9 17:43 Inserted saline lock: 20 gauge in right antecubital area, using aseptic technique. mb9 17:56 CT Head C Spine In Process Unspecified. EDMS 23:14 No provider procedures requiring assistance completed. IV discontinued, intact, ha1 bleeding controlled, No redness/swelling at site. Pressure dressing applied. Administered Medications: 18:10 Drug: NS 0.9% IV 1000 ml Route: IV; Rate: 1 bolus; Site: right antecubital; [facility] 19:17 Follow up: Response: No adverse reaction; IV Status: Completed infusion; IV Intake: kc6 1000ml 18:10 Drug: Magnesium Sulfate IVPB 1 grams Route: IVPB; Infused Over: 1 hrs; Site: right kc antecubital; 19:16 Follow up: Response: No adverse reaction; IV Status: Completed infusion; IV Intake: kc6 100ml 18:10 Drug: HYDROmorphone IVP 1 mg Route: IVP; Site: right antecubital; [facility] 19:16 Follow up: Response: No adverse reaction; Pain is decreased; RASS: Alert and Calm (0) [facility] 18:10 Drug: hydrALAZINE IVP 5 mg Route: IVP; Site: right antecubital; kc6 19:16 Follow up: Response: No adverse reaction; Blood pressure is lowered kc6 20:18 Drug: NS 0.9% IV 500 ml Route: IV; Rate: bolus; Site: right antecubital; ha1 22:18 Drug: Acetaminophen PO 1000 mg Route: PO; ha1 Medication: 17:23 VIS not applicable for this client. mb9 Intake: 19:16 IV: 100ml; Total: 100ml. kc6 19:17 IV: 1000ml; Total: 1100ml. kc6 Outcome: 22:45 Discharge ordered by . samy 23:14 Discharged to home ambulatory, with family. ha1 23:14 Condition: stable 23:14 Discharge instructions given to patient, family, Instructed on discharge instructions, follow up and referral plans. medication usage, Demonstrated understanding of instructions, follow-up care, medications, Prescriptions given X 1. 23:15 Patient left the ED. ha1 Signatures: Dispatcher [employer] EDMS Anika Hutchinson, CELLOPHANE WORKER-C CELLOPHANE WORKER-Csnw Mya Arnold Parker, Dottie, RN RN aa5 Preethi Hutchison RN RN ha1 Giovanna Salinas RN RN [id number] Mya Villa, RN RN mb9 Corrections: (The following items were deleted from the chart) 17:21 17:20 Home Meds: Albuterol Inhl; mb9 mb9 17:31 17:17 Acuity: SILVIA 3 mb9 aa5
== END 2022-05-03 23:15 | disposition home or self-care (01) ==
LOC: ER 17:06
DX: I15.8 Other secondary hypertension (principal)
CPT/HCPCS: 96365; 87040 ×2; 85025; 36415; 83735; 81025; 84443; 83690; 80053; 84156; 70450; 72125; 96375; 99284; J3475; J0360; J1170; J7040; J7030; 81003; 81015

== ENCOUNTER 2022-05-10 04:38 | Emergency (ER) | payer OTHER ==
--- OUTSIDE RECORDS SUMMARY | 2022-05-10 04:47 | XMS REPORT | Continuity of Care Document ---
:2000 Author Organization [facility] t Address [address] [facility] [address] [place] [id number] Care Team Providers Name Role Phone Lian Mooney Primary Care Physician [phone] Visit, Donte Nurse Attending Clinician Unavailable Lian Mooney Attending Clinician [phone] LIAN SIMMS Attending Clinician Unavailable Chip Archuleta DO Attending Clinician LEROY LORENZANA Attending Clinician Unavailable Emilee Villarreal MD Attending Clinician [phone] Colby AMBROSE, Daquan Attending Clinician Ronen Presley MD Attending Clinician Malcolm STALLWORTH, Jose Cruz Camacho Attending Clinician Unavailable Provider, Donte Temp Attending Clinician Unavailable MADHURI OROZCO Attending Clinician Unavailable Madhuri Orozco MD Attending Clinician LIZETT WEI Attending Clinician Unavailable Lizett Wei MD Attending Clinician Astrid Barnett CNM Attending Clinician ASTRID BARNETT Attending Clinician Unavailable Ultrasound, [facility] Attending Clinician Unavailable Josesito Carrillo MD Attending Clinician JOSESITO CARRILLO Attending Clinician Unavailable JOSESITO CARRILLO Attending Clinician Unavailable Doctor Unassigned, Ferdinand Attending Clinician Unavailable Lab, [facility] Attending Clinician Unavailable Crispin Campbell Attending Clinician CRISPIN SON Attending Clinician Unavailable 1, [facility] Attending Clinician Unavailable Ricardo AMBROSE, Joey Simmons Attending Clinician Rosalia Purdy APN Attending Clinician JOHNNY WARNER Attending Clinician Unavailable Risk, Glw-Xhefx-Sf/High Attending Clinician Unavailable Timmy WHJohnny RAWLS Attending Clinician Faculty, [facility] Attending Clinician Unavailable Vicki Gardner RN Attending Clinician Unavailable Lester Breen RN, Martha Attending Clinician Unavailable LIZETT WEI Admitting Clinician Unavailable Chip Archuleta DO Admitting Clinician MADHURI OROZCO Admitting Clinician Unavailable Madhuri Orozco MD Admitting Clinician Lizett Wei MD Admitting Clinician Payers Payer Name Policy Type Policy Number Effective Date Expiration Date [facility] STAR [id number] 2021 00:00:00 MEDICAID PENDING PENDING 2021 00:00:00 Problems Condition Condition Condition Status Onset Resolution Last Treating Co mments Source Name Details Category Date Date Treatment Clinician Date 38 weeks 38 weeks Disease Active Unive rs gestation gestation 3 ity of of of 00:00: [place] 00 Medi [facility] Branch Disease Active Univers growth growth 3 [...] of high-risk [place] [facility] [place] History of History of Disease [...] Date Clinician No Known DA Active U [facility]- [facility] 2 [facility] NO KNOWN Drug Active Univers ALLERGIE Class ity of S [facility] Social History Social Habit Start Date Stop Date Quantity Comments Source ASSERTION 2021-08-09 [facility] 00:00:00 [facility] History of Cigarette Smoker Universi ty of tobacco use [facility] Exposure to 2022-04-26 2022-05-06 Not sure [facility] SARS-CoV-2 00:00:00 09:11:00 [facility] (event) [place] Alcohol intake 2022-05-06 2022-05-06 Lifetime [facility] 00:00:00 00:00:00 non-drinker [facility] (finding) [place] Tobacco use and 2021-09-02 2021-09-02 Smokeless tobacco Un iversity of exposure 00:00:00 00:00:00 non-user [facility] Sex Assigned At [birth year] Universit y of 00:00:00 00:00:00 [facility] Smoking Status Start Date Stop Date Source Ex-smoker 2021-09-02 00:00:00 2021-09-02 00:00:00 [facility] Medications Ordered Filled Start Stop Current Ordering [...] at 0900, Until Discontinu ed, Routine Yes [id number] 1{tbl} Take 1 Univers vitamin 3-04 tablet by ity of w/FA tablet 00:00: mouth in [place] 00 the Medical morning. Branch docusate Yes [id number] 200mg Take 2 U nivers 100 mg 3-04 capsules ity of capsule 00:00: by mouth [place] 00 once daily Medical as needed Branch for Constipati on. ferrous Yes [id number] 325mg Take 1 Un cheyan[place] sulfate 325 3-04 tablet by ity of mg (65 mg 00:00: [place] iron[place] 00 the Medical tablet morning Branch and 1 tablet in the evening. ibuprofen Yes [id number] 600mg Take 1 Univers 600 mg 3-04 tablet by ity of tablet 00:00: mouth [place] 00 every 6 Medical (six) Branch hours as needed (Pain). Take with food or milk. Yes [id number] 1{tbl} Take 1 Univers vitamin 3-04 tablet by ity of w/FA tablet 00:00: [place] 00 the Medical morning. Branch docusate Yes [id number] 200mg Take 2 U nivers 100 mg 3-04 capsules ity of capsule 00:00: by mouth [place] 00 once daily Medical as needed Branch for Constipati on. ferrous Yes [id number] 325mg Take 1 Un [place] sulfate 325 3-04 tablet by ity of mg (65 mg 00:00: [place] iron[place] 00 the Medical tablet morning Branch and 1 tablet in the evening. ibuprofen 2023-0 Yes [id number] 600mg Take 1 Univers 600 mg 3-04 tablet by ity of tablet 00:00: mouth [place] 00 every 6 Medical (six) Branch hours as needed (Pain). Take with food or milk. 2022-0 Yes [id number] 1{tbl} Take 1 Univers vitamin 3-04 tablet by ity of w/FA tablet 00:00: [place] 00 the Medical morning. Branch docusate 0 Yes [id number] 200mg Take 2 U nivers 100 mg 3-04 capsules ity of capsule 00:00: by mouth [place] 00 once daily Medical as needed Branch for Constipati on. ferrous 0 Yes [id number] 325mg Take 1 Un [place] sulfate 325 3-04 tablet by ity of mg (65 mg 00:00: [place] iron[place] 00 the Medical tablet morning Branch and 1 tablet in the evening. ibuprofen 0 Yes [id number] 600mg Take 1 Univers 600 mg 3-04 tablet by ity of tablet 00:00: mouth [place] 00 every 6 Medical (six) Branch hours as needed (Pain). Take with food or milk. 0 Yes [id number] 1{tbl} Take 1 Univers vitamin 3-04 tablet by ity of w/FA tablet 00:00: mouth [place] 00 the Medical morning. Branch docusate 0 Yes [id number] 200mg Take 2 U nivers 100 mg 3-04 capsules ity of capsule 00:00: by mouth [place] 00 once daily Medical as needed Branch for Constipati on. ferrous 2022-0 Yes [id number] 325mg Take 1 Un [place] sulfate 325 3-04 tablet by ity of mg (65 mg 00:00: [place] iron[place] 00 the Medical tablet morning Branch and 1 tablet in the evening. ibuprofen 2022-0 Yes [id number] 600mg Take 1 Univers 600 mg 3-04 tablet by ity of tablet 00:00: mouth [place] 00 every 6 Medical (six) Branch hours as needed (Pain). Take with food or milk. 2022-0 Yes [id number] 1{tbl} Take 1 Univers vitamin 3-04 tablet by ity of w/FA tablet 00:00: [place] 00 the Medical morning. Branch docusate Yes [id number] 200mg Take 2 U nivers 100 mg 3-04 capsules ity of capsule 00:00: by mouth [place] 00 once daily Medical as needed Branch for Constipati on. ferrous Yes [id number] 325mg Take 1 Un [place] sulfate 325 3-04 tablet by ity of mg (65 mg 00:00: [place] iron[place] 00 the Medical tablet morning Branch and 1 tablet in the evening. ibuprofen Yes [id number] 600mg Take 1 Univers 600 mg 3-04 tablet by ity of tablet 00:00: mouth [place] 00 every 6 Medical (six) Branch hours as needed (Pain). Take with food or milk. HYDROcodone 2022- Yes [id number] 1{tbl} Take 1 [...] [id number] 1{tbl} Take 1 U nivers -acetaminop 04-2612 tablet by it y of hen 5-325 00:00: 05:59 mouth [place] mg tablet 00 :00 every 6 Medical (six) Branch hours as needed for Pain (scale 7-10) or Pain (scale 4-6) (Pain scale above 4) for up to 7 days. Do not exceed 3 grams of acetaminop hen in 24 hours. Indication s: acute pain sennosides Yes 8.6mg 8.6 mg, Uni vers (SENOKOT) 04-25 Oral, ity of tablet 8.6 15:00: DAILY, [place] mg 00 First dose Medical on Thu Branch 04/25/22 at 0900, Until Discontinu ed, Routine docusate Yes 100mg 100 mg, Unive rs (COLACE) 04-25 Oral, ity of capsule 100 15:00: DAILY, [place] mg 00 First dose Medical on Thu Branch 04/25/22 at 0900, Until Discontinu ed, Routine sennosides 2022- No 8.6mg 8.6 mg, Un [place] (SENOKOT) 04-25 Oral, ity of tablet 8.6 15:00: 07:02 DAILY, [place] mg 00 :59 First dose Medical on Thu Branch 04/25/22 at 0900, Until Discontinu ed, Routine docusate 2022- No 100mg 100 mg, Univ ers (COLACE) [...] dose, Branch mcg Conditiona l, Routine rho(D) 2022- No 300ug 300 mcg, Unive rs immune 04-25 Intramuscu ity of globulin 12:55: 07:02 lar, ONCE, [place] (RHOGAM) 41 :59 For 1 Medical syringe 300 dose, Branch mcg Conditiona l, Routine HYDROcodone 2023-0 Yes 2{tbl} 2 tablet, Univers -acetaminop 3-03 Oral, ity of hen (NORCO 12:55: Q6HPRN, [place] 5) 5-325 mg 37 Starting Medi vipin tablet 2 on Thu Branch tablet 04/25/22 at 0655, Until Discontinu ed, Routine, Pain (scale 7-10), Alternate with Ibuprofen HYDROcodone 2023-0 Yes 1{tbl} 1 tablet, Univers -acetaminop 3-03 Oral, ity of hen (NORCO 12:55: Q6HPRN, [place] 5) 5-325 mg 37 Starting Medi vipin tablet 1 on Thu Branch tablet 04/25/22 at 0655, Until Discontinu ed, Routine, Pain (scale 4-6), Alternate with Ibuprofen diphenhydrA 2023-0 Yes 25mg 25 mg, Univ ers MINE 3-03 Slow IV ity of (BENADRYL) 12:55: Push, [place] injection 37 Q6HPRN, Medical 25 mg Starting Branch on 04/25/22 at 0655, Until Discontinu ed, Routine, Itching diphenhydrA 2023-0 Yes 25mg 25 mg, Univ ers MINE 3-03 Oral, ity of (BENADRYL) 12:55: Q6HPRN, [place] tablet 25 37 Starting Medica l mg on Thu Branch 04/25/22 at 0655, Until Discontinu ed, Routine, Sleep, Itching ondansetron 2023-0 Yes 4mg 4 mg, Slow Univers (ZOFRAN 04-25 IV Push, ity of (PF)) 12:55: Q8HPRN, [place] injection 4 37 Starting Medi vipin mg on Thu Branch 04/25/22 at 0655, Until Discontinu ed, Routine, Nausea and Vomiting (N/V) bisacodyL 2022-0 Yes 10mg 10 mg, Univer s (DULCOLAX) 3 Rectal, ity of suppository 12:55: QDAILYPRN, [place] 10 mg 37 Starting Medical on Fri Branch 04/25/22 at 0655, Until Discontinu ed, Routine, Constipati on docusate 2022-0 Yes 200mg 200 mg, Unive rs (COLACE) 3-03 Oral, ity of capsule 200 12:55: QDAILYPRN, [place] mg 37 Starting Medical on Fri Branch 04/25/22 at 0655, Until Discontinu ed, Routine, Constipati on magnesium Yes 30mL 30 mL, Univer s hydroxide 03 Oral, ity of (MILK OF 12:55: QDAILYPRN, [place] MAGNESIA) 37 Starting Medica l 400 mg/5 mL on Fri Branch suspension 04/25/22 at 30 mL 0655, Until Discontinu ed, Routine, Constipati on lactated Yes 1000mL at 125 Unive rs ringers IV 3-03 mL/hr, ity of infusion 12:55: 1,000 mL, [place] 1,000 mL 37 IV Medical Infusion, Branch PRN, 1 dose, Starting on Thu04/25/22 at 0655, Until Discontinu ed, Routine HYDROcodone 2022- No 2{tbl} 2 tablet, Univers -acetaminop 04-2505 Oral, ity of hen (NORCO 12:55: 07:02 [...] 25mg 25 mg, Uni vers MINE 04-25 0305 Slow IV ity of (BENADRYL) 12:55: 07:02 Push, [place] injection 37 :59 Q6HPRN, Medical 25 mg Starting Branch on 04/25/22 at 0655, Until 04/27/22 at 0102, Routine, Itching diphenhydrA No 25mg 25 mg, Uni vers MINE 04-25 Oral, ity of (BENADRYL) 12:55: 07:02 Q6HPRN, [place] tablet 25 37 :59 Starting Medica l mg on Fri Branch 04/25/22 at 0655, Until 04/27/22 at 0102, Routine, Sleep, Itching ondansetron No 4mg 4 mg, Slow Univers (ZOFRAN 04-25 IV Push, ity of (PF)) 12:55: 07:02 Q8HPRN, [place] injection 4 37 :59 Starting Medi vipin mg on Fri Branch 04/25/22 at 0655, Until 04/27/22 at 0102, Routine, Nausea and Vomiting (N/V) bisacodyL No 10mg 10 mg, Unive rs (DULCOLAX) 04-25 Rectal, ity o f suppository 12:55: 07:02 QDAILYPRN, [place] 10 mg 37 :59 Starting Medical on Fri Branch 04/25/22 at 0655, Until 04/27/22 at 0102, Routine, Constipati on docusate No 200mg 200 mg, Univ ers (COLACE) [...] 04/27/22 at 0102, Routine, Constipati on lactated No 1000mL at 125 Univ ers ringers IV 04-25 mL/hr, ity of infusion 12:55: 07:02 1,000 mL, [place] 1,000 mL 37 :59 IV Medical Infusion, Branch PRN, 1 dose, Starting on Thu04/25/22 at 0655, Until 04/27/22 at 0102, Routine ibuprofen No 600mg 600 mg, Uni vers (IBU) 04-25 Oral, ity of tablet 600 12:55: 14:14 Q6HPRN, [place] mg 37 :37 Starting Medical on Fri Branch 04/25/22 at 0655, Until 04/26/22 at 0814, Routine, Pain (scale 1-3) simethicone No 160mg 160 mg, U nivers (GAS RELIEF 04-25 Oral, ity of (SIMETHICON 12:55: 14:14 PC+HSPRN, [place] E)) 37 :37 Starting Medical chewable on Thu Branch tablet 160 04/25/22 at mg 0655, Until 04/26/22 at 0814, Routine, Gas acetaminoph No 1000mg 1,000 mg, Univers en ADULT 04-25 IV ity of (OFIRMEV) 11:00: 10:38 Infusion, [place] injection 00 :00 at 400 Medical 1,000 mg mL/hr Branch Administer over 15 Minutes, ONCE, 1 dose, On Thu04/25/22 at 0500, Routine
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
Lock Medi vipin injection out Branch Interval: 10 Minutes
Basal Rate: 0 mg/hr
F our Hour Dose Limit: 20 mg
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
Lock Medi vipin injection out Branch Interval: 10 Minutes
Basal Rate: 0 mg/hr
F our Hour Dose Limit: 20 mg
Intr avenous, 30 mL, CONTINUOUS , Starting on Thu04/25/22 at 0445, Until Thu04/27/22 at 0102 lactated 2022-0 Yes 1000mL at 75 Univer s ringers IV 3-03 mL/hr, ity of infusion 09:45: 1,000 mL, [place] 1,000 mL 00 IV Medical Infusion, Branch CONTINUOUS , Starting on Thu04/25/22 at 0345, Until Discontinu ed, Routine, PACU lactated 2022-2022- No 1000mL at 75 Unive rs ringers IV 3-03 03-05 mL/hr, ity of infusion 09:45: 07:02 1,000 mL, [place] 1,000 mL 00 :59 IV Medical Infusion, Branch CONTINUOUS , Starting on Thu04/25/22 at 0345, Until Thu04/27/22 at 0102, Routine, PACU naloxone 2022- Yes .1mg 0.1 mg, Univer s (NARCAN) 04-25 Slow IV ity of injection 09:39: Push, [place] 0.1 mg 13 SEE-INSTRU Medical CTIONS, Branch Starting on Thu04/25/22 at 0339, Until Discontinu ed, Routine morpHINE 2 2022- Yes Slow IV Univ ers mg/mL LOAD 3 Push, ity of & RESCUE 09:39: Routine [place] INJECTION 13 Medical SYRG Branch naloxone 2022-0 2022- No .1mg 0.1 mg, Unive rs (NARCAN) 04-25-05 Slow IV ity of injection 09:39: 07:02 Push, [place] 0.1 mg 13 :59 SEE-INSTRU Medical CTIONS, Branch Starting on Thu04/25/22 at 0339, Until Thu04/27/22 at 0102, Routine morpHINE 2 2022-0 2022- No Slow IV Uni vers mg/mL LOAD 04-25-05 Push, ity of & RESCUE 09:39: 07:02 Routine [place] INJECTION 13 :59 Medical SYRG Branch HYDROmorpho 0 Yes .2mg 0.2 mg, Uni vers ne 3-03 Slow IV ity of (DILAUDID) 09:36: Push, [place] injection 53 Q5MIN PRN, Medi vipin 0.2 mg 10 doses, Branch Starting on Thu04/25/22 at 0336, Until Discontinu ed, Routine, Pain (scale 7-10), PACU
Us e approved by (Faculty): PAIN SERVICE FENTanyl PF 2022- Yes 25ug 25 mcg, Uni vers (SUBLIMAZE 04-25 Slow IV ity of (PF)) 09:36: Push, [place] injection 53 Q5MIN PRN, Medi vipin 25 mcg 4 doses, Branch Starting on Thu04/25/22 at 0336, Until Discontinu ed, Routine, Pain (scale 4-6), PACU ondansetron 2022-0 Yes 4mg 4 mg, Slow Univers (ZOFRAN 04-25 IV Push, ity of (PF)) 09:36: PRN, 1 [place] injection 4 53 dose, Medical mg Starting Branch on Thu04/25/22 at 0336, Until Discontinu ed, Routine, Nausea and Vomiting (N/V), PACU HYDROmorpho 2022-2022- No .2mg 0.2 mg, Un cheyanne ne 04-25 Slow IV ity of (DILAUDID) 09:36: 07:02 Push, [place] injection 53 :59 Q5MIN PRN, Medi vipin 0.2 mg 10 doses, Branch Starting on Thu04/25/22 at 0336, Until 04/27/22 at 0102, Routine, Pain (scale 7-10), PACU
Us e approved by (Faculty): PAIN SERVICE FENTanyl PF 2022-0 2022- No 25ug 25 mcg, Un [place]yan[place] (SUBLIMAZE 04-25- Slow IV ity o f (PF)) 09:36: 07:02 Push, [place] injection 53 :59 Q5MIN PRN, Medi vipin 25 mcg 4 doses, Branch Starting on Thu04/25/22 at 0336, Until 04/27/22 at 0102, Routine, Pain (scale 4-6), PACU ondansetron 2022-0 2022- No 4mg 4 mg, Slow Univers (ZOFRAN 04-25-05 IV Push, ity of (PF)) 09:36: 07:02 [...] Discontinu ed, Routine, Pain (scale 4-6) HYDROcodone 2022-0 2022- No 1{tbl} 1 tablet, Univers -acetaminop 3-03 03-05 Oral, ity of hen (NORCO 08:43: 07:02 Q6HPRN, 1 [place] 5) 5-325 mg 04 :59 dose, Medical tablet 1 Starting Branch tablet on Thu04/25/22 at 0243, Until Thu04/27/22 at 0102, Routine, Pain (scale 4-6) oxytocin [...] & nbsp; For post delivery uterotonic
oxytocin 2022- No 600mL/h 600 mL/hr, Univers (PITOCIN) 04-25 IV ity of 30 units in 08:42: 07:02 Infusion, [place] NS 500 mL 46 :59 PRN, For Medica l IV infusion post Branch delivery uterine atony., Starting on Thu04/25/22 at 0242<br&gt ;Start at 600 mL/hr for 1 hr then 150 mL/hr for 1 hr.
oxytocin 2022- No 300mL/h 300 mL/hr, Univers (PITOCIN) 04-25 IV ity of 30 units in 08:42: 07:02 Infusion, [place] NS 500 mL 46 :59 SEE-INSTRU Medi vipin IV infusion CTIONS, Branc h Starting on Thu04/25/[address] at 300 mL/hr for 1 hr then 150 mL/hr for 1 hr. & nbsp; For post delivery uterotonic
sodium 2022- Yes 30mL 30 mL, Univers citrate-cit 03 Oral, ity of batool acid 08:34: PRE-PROCED [place] (BICITRA) 08 URE ONCE, Medic al 500-334 1 dose, Branch mg/5 mL Starting solution 30 on Fri mL 04/25/22 at 0234, Until Discontinu ed, Routine, Surgery sodium 2022-2022- No 30mL 30 mL, Univers citrate-cit 04-25 Oral, ity of batool acid 08:34: 07:02 PRE-PROCED [place] (BICITRA) 08 :59 URE ONCE, Medic al 500-334 1 dose, Branch mg/5 mL Starting solution 30 on Fri mL 04/25/22 at 0234, Until 04/27/22 at 0102, Routine, Surgery terbutaline 2022-2022- No .25mg 0.25 mg, Univers (BRETHINE) 3-03 03-03 Subcutaneo it y of injection 06:42: 06:42 us, ONCE, [place] 0.25 mg 00 :00 1 dose, On Medica l 04/25/22 Branch at 0045, Routine ropivacaine 2022- Yes Epidural, U nivers 0.2 % 04-25 CONTINUOUS ity of (NAROPIN 06:40: PRN, [place] (PF)) 00 Starting Medical epidural on Fri Branch infusion 04/25/22 at 0040, Until Discontinu ed, Routine, Intra-op fentaNYL-ro Yes Epidural, U nivers pivacaine 2 04-24 CONTINUOUS it y of mcg/mL-0.1 17:33: PRN, [place] % (PF) in 00 Starting Medica l NS 200 mL on Lorri Branch epidural 04/24/22 at infusion 1133, RTU Until Discontinu ed, Routine, Intra-op lidocaine-e Yes Intraderma Univers pinephrine 04-24 l, ONCE ity of (XYLOCAINE 17:30: INTRA [place] W/EPINEPHRI 00 PROCEDURE, Me dical NE) 1.5 Starting Branch %-1:200,000 on [place] injection 04/24/22 at 1130, Until Discontinu ed, Routine, Intra-op oxytocin 2022-0 Yes 2mU/min at 2-40 Uni vers (PITOCIN) 3-02 mL/hr, IV ity o f 30 units in 15:36: Infusion, [place] NS 500 mL 22 TITRATE, Medica l IV infusion Starting Bran ch on Lorri 04/24/22 at 0936, Until Discontinu ed, LUCITA oxytocin 2022-2022- No 2mU/min at 2-40 Un [place] (PITOCIN) 04-24 03-05 mL/hr, IV ity of 30 units in 15:36: 07:02 Infusion, [place] 500 mL 22 :59 TITRATE, Medica l IV infusion Starting Bran ch on Lor[place] 04/24/22 at 0936, Until 04/27/22 at 0102, LUCITA lactated 2022-0 2022- No 500mL at 999 Unive rs ringers IV 04-24 03-02 mL/hr, 500 it y of infusion [...] 0836, Until Discontinu ed, Routine lactated 2023-0 202- No 500mL at 999 Unive rs ringers IV 04-24 03-05 mL/hr, 500 it y of infusion 14:36: 07:02 mL, IV [place] 500 mL 04 :59 Infusion, Medical PRN - SEE Branch INSTRUCTIO NS, 1 dose, Starting on Lorri 04/24/22 at 0836, Until 04/27/22 at 0102, Routine sodium 2022-2022- No 30mL 30 mL, Univers citrate-cit 04-24 Oral, ity of batool acid 14:36: 17:16 PRE-PROCED [place] (BICITRA) 04 :00 URE ONCE, Medic al 500-334 1 dose, Branch mg/5 mL Starting solution 30 on Lor[place] mL 04/24/22 at 0836, Until [place] 04/24/22 at 1116, Routine, Surgery/Pr ocedure proMETHazin 2022- No 12.5mg 12.5 mg, Univers e 04-24 IV ity of (PHENERGAN) 09:15: 09:26 Piggyback, [place] 12.5 mg in 00 :46 at 200 Medical NS 50 mL IV mL/hr Branch piggyback Administer (CNR) over 15 Minutes, ONCE NOW, 1 dose, On Lorri 04/24/22 at 0315, Routine butorphanol 2022- No 1mg 1 mg, Univ ers (STADOL) 04-24 Intravenou ity of injection 1 09:00: 08:55 s, ONCE, 1 [place] mg 00 :00 dose, On Medical Lor[place] 04/24/22 Branch at 0300, Routine proMETHazin 0 2022- No 12.5mg 12.5 mg, Univers e 04-24 IV ity of (PHENERGAN) 03:07: 05:50 Piggyback, [place] 12.5 mg in 00 :09 at 200 Medical NS 50 mL IV mL/hr Branch piggyback Administer (CNR) over 15 Minutes, ONCE NOW, 1 dose, On Thu04/23/22 at 2115, LUCITA butorphanol 2022-0 2022- No 1mg 1 mg, Univ ers (STADOL) 04-24 03-02 Intravenou ity of injection 1 03:07: 03:54 s, ONCE, 1 [place] mg 00 :00 dose, On Medical Thu04/23/22 Branch at 2115, Routine sodium 0 Yes 30mL 30 mL, Univers citrate-cit 04-24 Oral, ity of batool acid 01:40: PRE-PROCED [place] (BICITRA) 33 URE ONCE, Medic al 500-334 1 dose, Branch mg/5 mL Starting solution 30 on Thu mL 04/23/22 at 1940, Until Discontinu ed, Routine, Surgery/Pr ocedure lidocaine Yes 50mL 50 mL, Univer s 1% 04-24 Infiltrati ity of (XYLOCAINE) 01:40: on, PRN - [place] 10 mg/mL (1 33 SEE Medical %) INSTRUCTIO Branch injection NS, 50 mL Starting on Thu04/23/22 at 1940, Until Discontinu ed, Routine, Local anesthesia , For laceration repair only as a local anesthetic as indicated. lidocaine Yes .3mL 0.3 mL, Unive rs 1% (PF) 04-24 Infiltrati ity of (XYLOCAINE) 01:40: on, PRN [...] 04-24 Oral, ity of batool acid 01:40: 07:02 PRE-PROCED [place] (BICITRA) 33 :59 URE ONCE, Medic al 500-334 1 dose, Branch mg/5 mL Starting solution 30 on Thu mL 04/23/22 at 1940, Until 04/27/22 at 0102, Routine, Surgery/Pr ocedure lidocaine 2022- No 50mL 50 mL, Unive rs 1% 04-24 Infiltrati ity of (XYLOCAINE) 01:40: 07:02 on, PRN - [place] 10 mg/mL (1 33 :59 SEE Medical %) INSTRUCTIO Branch injection NS, 50 mL Starting on Thu04/23/22 at 1940, Until 04/27/22 at 0102, Routine, Local anesthesia , For laceration repair only as a local anesthetic as indicated. lidocaine No .3mL 0.3 mL, Univ ers 1% (PF) 04-24 Infiltrati ity o f (XYLOCAINE) 01:40: 07:02 on, PRN - [place] injection 33 :59 SEE Medical 0.3 mL INSTRUCTIO Branch NS, Starting on Thu04/23/22 at 1940, Until 04/27/22 at 0102, Routine, Local anesthesia , For IV line placement only as a local anesthetic . lactated No 500mL at 999 Unive rs ringers IV 04-24-05 mL/hr, 500 it y of infusion 01:40: 07:02 mL, IV [place] 500 mL 33 :59 Infusion, Medical PRN - SEE Branch INSTRUCTIO NS, Starting on Thu04/23/22 at 1940, Until 04/27/22 at 0102, Routine D5W-LR IV No 1000mL at 1-125 U nivers infusion 04-24 03-05 mL/hr, IV ity o f 1,000 mL 01:40: 07:02 Infusion, [place] 33 :59 TITRATE, Medical Starting Branch on 04/23/22 at 1940, Until 04/27/22 at 0102, Routine alum-mag 0 Yes 30mL 30 mL, Univers hydroxide-s 04-24 Oral, ity of imeth 01:37: Q6HPRN, [place] (MAALOX 05 Starting Medical PLUS / on Wed Branch MAG-AL 04/23/22 at PLUS) 1936, 200-200-20 Until mg/5 mL Discontinu suspension ed, 30 mL Routine, Indigestio n docusate Yes 200mg 200 mg, Unive rs (COLACE) 04-24 Oral, ity of capsule 200 01:37: QHSPRN, [place] mg 05 Starting Medical on Wed Branch 04/23/22 at 1937, Until Discontinu ed, Routine, Constipati on magnesium 0 Yes 30mL 30 mL, Univer s hydroxide 04-24 Oral, ity of (MILK OF 01:37: QDAILYPRN, [place] MAGNESIA) 05 Starting Medica l 400 mg/5 mL on Wed Branch suspension 04/23/22 at 30 mL 1937, Until Discontinu ed, Routine, Constipati on alum-mag 0 2022- No 30mL 30 mL, Univer s hydroxide-s 04-24 Oral, ity of imeth 01:37: 07:02 Q6HPRNCopiague, [place] (MAALOX 05 :59 Starting Medical PLUS / on Wed Branch MAG-AL 04/23/22 at PLUS) 1936, 200-200-20 Until Sun mg/5 mL 04/27/22 at suspension 0102, 30 mL Routine, Indigestio n docusate 2022- No 200mg 200 mg, Univ ers (COLACE) 04-2405 Oral, ity of capsule 200 01:37: 07:02 QHSPRN, [place] mg 05 :59 Starting Medical on Wed Branch 04/23/22 at 1937, Until 04/27/22 at 0102, Routine, Constipati on magnesium 0 2022- No 30mL 30 mL, Unive rs hydroxide 04-2405 Oral, ity of (MILK OF 01:37: 07:02 QDAILYPRN, [place] MAGNESIA) 05 :59 Starting Medica l 400 mg/5 mL on Wed Branch suspension 04/23/22 at 30 mL 1937, Until 04/27/22 at 0102, Routine, Constipati on fluconazole 2022- No [id number] 150mg Take 1 Univers (DIFLUCAN) 04-23 tablet by ity of 150 mg 00:00: 00:00 mouth once [place] tablet 00 :00 now for 1 Medical dose. Branch fluconazole 2022- No [id number] 150mg Take 1 Univers (DIFLUCAN) 04-23 tablet by ity of 150 mg 00:00: 00:00 mouth [place] tablet 00 :00 now for 1 Medical dose. Branch fluconazole 2022- Yes [id number] 150mg Take 1 [facility] (DIFLUCAN) 04-23 tablet by [facility] of 150 mg 00:00: 05:59 mouth [place] tablet 00 :00 now for 1 Medical dose. Branch ferrous Yes [id number] 325mg Take 1 [facility] cheyanne sulfate 325 2-15 tablet by it[facility] of mg (65 mg 00:00: mouth [place] iron) 00 the Medical tablet morning Branch and 1 tablet in the evening. ascorbic Yes [id number] 500mg Take 1 [facility] nivers acid, 2-15 tablet by ity of vitamin C, 00:00: mouth in [place] 500 mg 00 the Medical tablet morning Branch and 1 tablet at noon and 1 tablet in the evening. ferrous Yes [id number] 325mg Take 1 [facility] cheyanne sulfate 325 2-15 tablet by [facility] of mg (65 mg 00:00: mouth [place] iron) 00 the Medical tablet morning Branch and 1 tablet in the evening. ascorbic Yes [id number] 500mg Take 1 [facility] nivers acid, 2-15 tablet by it[facility] of vitamin C, 00:00: mouth in [place] 500 mg 00 the Medical tablet morning Branch and 1 tablet at noon and 1 tablet in the evening. ferrous Yes [id number] 325mg Take 1 [facility] cheyanne sulfate 325 2-15 tablet by [facility] of mg (65 mg 00:00: mouth [place] iron) 00 the Medical tablet morning Branch and 1 tablet in the evening. ascorbic 2023-0 Yes [id number] 500mg Take 1 [facility] nivers acid, 2-15 tablet by [facility]y of vitamin C, 00:00: mouth in [place] 500 mg 00 the Medical tablet morning Branch and 1 tablet at noon and 1 tablet in the evening. ferrous 2022-0 Yes [id number] 325mg Take 1 [facility] che[place]ne sulfate 325 2-15 tablet by [facility] of mg (65 mg 00:00: mouth [place] iron[place] 00 the Medical tablet morning Branch and 1 tablet in the evening. ascorbic 2022-0 Yes [id number] 500mg Take 1 [facility] nivers acid, 2-15 tablet by ity of vitamin C, 00:00: mouth in [place] 500 mg 00 the Medical tablet morning Branch and 1 tablet at noon and 1 tablet in the evening. ferrous 2022-0 Yes [id number] 325mg Take 1 [facility] che[place] sulfate 325 2-15 tablet by [facility] mg (65 mg 00:00: mouth [place] iron[place] 00 the Medical tablet morning Branch and 1 tablet in the evening. ascorbic 2022-0 Yes [id number] 500mg Take 1 [facility] nivers acid, 2-15 tablet by ity of vitamin C, 00:00: mouth in [place] 500 mg 00 the Medical tablet morning Branch and 1 tablet at noon and 1 tablet in the evening. ferrous 2022-0 Yes [id number] 325mg Take 1 [facility] che[place] sulfate 325 2-15 tablet by [facility] mg (65 mg 00:00: mouth [place] iron[place] 00 the Medical tablet morning Branch and 1 tablet in the evening. ascorbic 2022-0 Yes [id number] 500mg Take 1 [facility] nivers acid, 2-15 tablet by [facility]y of vitamin C, 00:00: mouth in [place] 500 mg 00 the Medical tablet morning Branch and 1 tablet at noon and 1 tablet in the evening. ferrous 2022-0 202- No [id number] 325mg Take 1 [facility] nivers sulfate 325 2-15 03-04 tablet by it y of mg (65 mg 00:00: 00:00 mouth in [place] iron) 00 :00 the Medical tablet morning Branch and 1 tablet in the evening. ascorbic 2022-0 2023- No [id number] 500mg Take 1 [facility] acid, 2-15 03-04 tablet by ity of vitamin C, 00:00: 00:00 mouth in [place] 500 mg 00 :00 the Medical tablet morning Branch and 1 tablet at noon and 1 tablet in the evening. ferrous 2022- No [id number] 325mg Take 1 [facility] nivers sulfate 325 2-15 - tablet by it y of mg (65 mg 00:00: 00:00 mouth in [place] iron) 00 :00 the Medical tablet morning Branch and 1 tablet in the evening. ascorbic 2022- No [id number] 500mg Take 1 [facility] acid, 2-15 -04 tablet by ity of vitamin C, 00:00: 00:00 mouth in [place] 500 mg 00 :00 the Medical tablet morning Branch and 1 tablet at noon and 1 tablet in the evening. fluconazole 2022- Yes [id number] 150mg Take 1 [facility] (DIFLUCAN) 2-14 -15 tablet by it[facility] of 150 mg 00:00: 05:59 mouth [place] tablet 00 :00 now for 1 Medical dose. Branch metroNIDAZO 0 Yes [id number] 500mg Take 1 [facility] LE 500 mg 2-02 tablet by ity o f tablet 00:00: mouth in [place] 00 the Medical morning Branch and 1 tablet in the evening. metroNIDAZO 0 Yes [id number] 500mg Take 1 [facility] LE 500 mg 2-02 tablet by ity o f tablet 00:00: mouth in [place] 00 the Medical morning Branch and 1 tablet in the evening. metroNIDAZO 2022-0 Yes [id number] 500mg Take 1 [facility] LE 500 mg 2-02 tablet by ity o f tablet 00:00: mouth in [place] 00 the Medical morning Branch and 1 tablet in the evening. metroNIDAZO 2022-0 Yes [id number] 500mg Take 1 [facility] LE 500 mg 2-02 tablet by ity o f tablet 00:00: mouth in [place] 00 the Medical morning Branch and 1 tablet in the evening. metroNIDAZO 2022-0 Yes [id number] 500mg Take 1 [facility] LE 500 mg 2-02 tablet by ity o f tablet 00:00: mouth in [place] 00 the Medical morning Branch and 1 tablet in the evening. metroNIDAZO 2022-0 Yes [id number] 500mg Take 1 [facility] LE 500 mg 2-02 tablet by ity o f tablet 00:00: mouth in [place] 00 the Medical morning Branch and 1 tablet in the evening. metroNIDAZO 2022-0 Yes [id number] 500mg Take 1 [facility] LE 500 mg 2-02 tablet by ity o f tablet 00:00: mouth in [place] 00 the Medical morning Branch and 1 tablet in the evening. metroNIDAZO 2022-0 Yes [id number] 500mg Take 1 [facility] LE 500 mg 2-02 tablet by ity o f tablet 00:00: mouth in [place] 00 the Medical morning Branch and 1 tablet in the evening. metroNIDAZO 2022-0 Yes [id number] 500mg Take 1 [facility] LE 500 mg 2-02 tablet by ity o f tablet 00:00: mouth in [place] 00 the Medical morning Branch and 1 tablet in the evening. metroNIDAZO 2022-0 Yes [id number] 500mg Take 1 [facility] LE 500 mg 2-02 tablet by ity o f tablet 00:00: mouth in [place] 00 the Medical morning Branch and 1 tablet in the evening. metroNIDAZO 2022-0 Yes [id number] 500mg Take 1 [facility] LE 500 mg 2-02 tablet by ity o f tablet 00:00: mouth in [place] 00 the Medical morning Branch and 1 tablet in the evening. metroNIDAZO 0 2022- No [id number] 500mg Take 1 [facility] LE 500 mg 2-02 03-04 tablet by ity of tablet 00:00: 00:00 mouth in [place] 00 :00 the Medical morning Branch and 1 tablet in the evening. metroNIDAZO 2022-2022- No [id number] 500mg Take 1 [facility] LE 500 mg 2-02 03-04 tablet by ity of tablet 00:00: 00:00 mouth in [place] 00 :00 the Medical morning Branch and 1 tablet in the evening. fluconazole 2022- Yes [id number] 150mg Take 1 [facility] (DIFLUCAN) 03-25 tablet by [facility] of 150 mg 00:00: 05:59 mouth [place] tablet 00 :00 now for 1 Medical dose. Branch fluconazole 2022- Yes [id number] 150mg Take 1 [facility] (DIFLUCAN) 03-25 tablet by [facility] of 150 mg 00:00: 05:59 mouth [place] tablet 00 :00 now for 1 Medical dose. Branch fluconazole 2022- Yes [id number] 150mg Take 1 [facility] (DIFLUCAN) 03-25 tablet by [facility] of 150 mg 00:00: 05:59 mouth [place] tablet 00 :00 now for 1 Medical dose. Branch fluconazole 2022- Yes [id number] 150mg Take 1 [facility] (DIFLUCAN) 03-25 tablet [...] First dose Medi vipin 10 mg on Thu Branch 02/05/22 at 1800, Until Discontinu ed, Routine sodium 2021-02 Yes 15mL 15 mL, [facility] citrate-cit 2-15 Oral, ity of batool acid 00:00: [facility], [place] (BICITRA) 00 First dose Medi vipin 500-334 on Thu Branch mg/5 mL 02/05/22 solution 15 at 1800, mL Until Discontinu ed, Routine sodium 2021-02 Yes 15mL 15 mL, [facility] citrate-cit 2-12 Oral, ity of batool acid 00:00: PC+HS, [place] (BICITRA) 00 First dose Medi vipin 500-334 on Thu Branch mg/5 mL 02/02/22 solution 15 at 1800, mL Until Discontinu ed, Routine 2021-02- [facility]11 mouth. ity of no.124/iron 18:49: 00:00 [place] /folic 59 :00 Medical ( Branch VITAMIN ORAL) 2021-02- No [facility] 12-11 mouth. ity of no.124/iron 18:49: 00:00 [place] /folic 59 :00 Medical ( Branch VITAMIN ORAL) 2021-02 Yes [facility] mouth. it[facility] of no.124/iron 18:33: [place] /folic 28 Medical ( Branch VITAMIN ORAL) Iron Fum & 2021-02 Yes [id number] 1{capsu Take 1 [facility] P-FA-Vit B 2-11 le} capsule by ity of & C No.9 00:00: mouth [place] (INTEGRA 00 daily. Medical PLUS) 125 Branch mg iron- 1 mg Cap Iron Fum & 2021-02 Yes [id number] 1{capsu Take 1 [facility] P-FA-Vit B 2-11 le} capsule by ity of & C No.9 00:00: mouth [place] (INTEGRA 00 daily. Medical PLUS) 125 Branch mg iron- 1 mg Cap Iron Fum & 2021-02 Yes [id number] 1{capsu Take 1 [facility] P-FA-Vit B 2-11 le} capsule by ity of & C No.9 00:00: mouth [place] (INTEGRA 00 daily. Medical PLUS) 125 Branch mg iron- 1 mg Cap Iron Fum & 2021-02 Yes [id number] 1{capsu Take 1 [facility] P-FA-Vit B 2-11 le} capsule by ity of & C No.9 00:00: mouth [place] (INTEGRA 00 daily. Medical PLUS) 125 Branch mg iron- 1 mg Cap Iron Fum & 2021-02 Yes [id number] 1{capsu Take 1 [facility] P-FA-Vit B 2-11 le} capsule by ity of & C No.9 00:00: mouth [place] (INTEGRA 00 daily. Medical PLUS) 125 Branch mg iron- 1 mg Cap Iron Fum & 2021-02 Yes [id number] 1{capsu Take 1 [facility] P-FA-Vit B 2-11 le} capsule by ity of & C No.9 00:00: mouth [place] (INTEGRA 00 daily. Medical PLUS) 125 Branch mg iron- 1 mg Cap Iron Fum & 2021-02 Yes [id number] 1{capsu Take 1 [facility] P-FA-Vit B 2-11 le} capsule by ity of & C No.9 00:00: mouth [place] (INTEGRA 00 daily. Medical PLUS) 125 Branch mg iron- 1 mg Cap Iron Fum & 2021-02 Yes [id number] 1{capsu Take 1 [facility] P-FA-Vit B 2-11 le} capsule by ity of & C No.9 00:00: mouth [place] (INTEGRA 00 daily. Medical PLUS) 125 Branch mg iron- 1 mg Cap Iron Fum & 2021-02 Yes [id number] 1{capsu Take 1 [facility] P-FA-Vit B 2-11 le} capsule by ity of & C No.9 00:00: mouth [place] (INTEGRA daily. Medical PLUS) 125 Branch mg iron- 1 mg Cap Iron Fum & 2021-02 Yes [id number] 1{capsu Take 1 [facility] P-FA-Vit B 2-11 le} capsule by ity of & C No.9 00:00: mouth [place] (INTEGRA daily. Medical PLUS) 125 Branch mg iron- 1 mg Cap Iron Fum & 2021-02 Yes [id number] 1{capsu Take 1 [facility] P-FA-Vit B 2-11 le} capsule by ity of & C No.9 00:00: mouth [place] (INTEGRA daily. Medical PLUS) 125 Branch mg iron- 1 mg Cap Iron Fum & 2021-02 Yes [id number] 1{capsu Take 1 [facility] P-FA-Vit B 2-11 le} capsule by ity of & C No.9 00:00: mouth [place] (INTEGRA daily. Medical PLUS) 125 Branch mg iron- 1 mg Cap Iron Fum & 2021-02 Yes [id number] 1{capsu Take 1 [facility] P-FA-Vit B 2-11 le} capsule by ity of & C No.9 00:00: mouth [place] (INTEGRA daily. Medical PLUS) 125 Branch mg iron- 1 mg Cap Iron Fum & 2021-02 Yes [id number] 1{capsu Take 1 [facility] P-FA-Vit B 2-11 le} capsule by ity of & C No.9 00:00: mouth [place] (INTEGRA daily. Medical PLUS) 125 Branch mg iron- 1 mg Cap Iron Fum & 2021-02 Yes [id number] 1{capsu Take 1 [facility] P-FA-Vit B 2-11 le} capsule by ity of & C No.9 00:00: mouth [place] (INTEGRA daily. Medical PLUS) 125 Branch mg iron- 1 mg Cap Iron Fum & 2021-02 Yes [id number] 1{capsu Take 1 [facility] P-FA-Vit B 2-11 le} capsule by ity of & C No.9 00:00: mouth [place] (INTEGRA daily. Medical PLUS) 125 Branch mg iron- 1 mg Cap Iron Fum & 2021-02 Yes [id number] 1{capsu Take 1 [facility] P-FA-Vit B 2-11 le} capsule by ity of & C No.9 00:00: mouth [place] (INTEGRA daily. Medical PLUS) 125 Branch mg iron- 1 mg Cap Iron Fum & 2021-02 Yes [id number] 1{capsu Take 1 [facility] P-FA-Vit B 2-11 le} capsule by ity of & C No.9 00:00: mouth [place] (INTEGRA daily. Medical PLUS) 125 Branch mg iron- 1 mg Cap Iron Fum & 2021-02 Yes [id number] 1{capsu Take 1 [facility] P-FA-Vit B 2-11 le} capsule by ity of & C No.9 00:00: mouth [place] (INTEGRA daily. Medical PLUS) 125 Branch mg iron- 1 mg Cap Iron Fum & 2021-02 Yes [id number] 1{capsu Take 1 [facility] P-FA-Vit B 2-11 le} capsule by ity of & C No.9 00:00: mouth [place] (INTEGRA daily. Medical PLUS) 125 Branch mg iron- 1 mg Cap Iron Fum & 2021-02 Yes [id number] 1{capsu Take 1 [facility] P-FA-Vit B 2-11 le} capsule by ity of & C No.9 00:00: mouth [place] (INTEGRA daily. Medical PLUS) 125 Branch mg iron- 1 mg Cap Iron Fum & 2021-02 Yes [id number] 1{capsu Take 1 [facility] P-FA-Vit B 2-11 le} capsule by ity of & C No.9 00:00: mouth [place] (INTEGRA daily. Medical PLUS) 125 Branch mg iron- 1 mg Cap Iron Fum & 2021-02 Yes [id number] 1{capsu Take 1 [facility] P-FA-Vit B 2-11 le} capsule by ity of & C No.9 00:00: mouth [place] (INTEGRA daily. Medical PLUS) 125 Branch mg iron- 1 mg Cap Iron Fum & 2021-02 Yes [id number] 1{capsu Take 1 [facility] P-FA-Vit B 2-11 le} capsule by ity of & C No.9 00:00: mouth [place] (INTEGRA daily. Medical PLUS) 125 Branch mg iron- 1 mg Cap Iron Fum & 2021-02 Yes [id number] 1{capsu Take 1 [facility] P-FA-Vit B 2-11 le} capsule by ity of & C No.9 00:00: mouth [place] (INTEGRA 00 daily. Medical PLUS) 125 Branch mg iron- 1 mg Cap Iron Fum & 2021-02 Yes [id number] 1{capsu Take 1 [facility] P-FA-Vit B 2-11 le} capsule by ity of & C No.9 00:00: mouth [place] (INTEGRA 00 daily. Medical PLUS) 125 Branch mg iron- 1 mg Cap Iron Fum & 2021-02 Yes [id number] 1{capsu Take 1 [facility] P-FA-Vit B 2-11 le} capsule by ity of & C No.9 00:00: mouth [place] (INTEGRA 00 daily. Medical PLUS) 125 Branch mg iron- 1 mg Cap Iron Fum & 2021-02 Yes [id number] 1{capsu Take 1 [facility] P-FA-Vit B 2-11 le} capsule by ity of & C No.9 00:00: mouth [place] (INTEGRA 00 daily. Medical PLUS) 125 Branch mg iron- 1 mg Cap Iron Fum & 2021-02- No [id number] 1{capsu Take 1 [facility] P-FA-Vit B 2-11 03-04 le} capsule by it y of & C No.9 00:00: 00:00 mouth [place] (INTEGRA 00 :00 daily. Medical PLUS) 125 Branch mg iron- 1 mg Cap Iron Fum & 2021-02- No [id number] 1{capsu Take 1 [facility] P-FA-Vit B 2-11 [...] ( Branch VITAMIN ORAL) montelukast 2021- No [id number] 10mg Take 1 [facility] 10 mg 10-24 103 tablet by ity of tablet 00:00: 05:59 mouth [place] 00 :00 every Medical evening Branch for 90 days. montelukast 2021- No [id number] 10mg Take 1 [facility] 10 mg 10-24 103 tablet by ity of tablet 00:00: 05:59 mouth [place] 00 :00 every Medical evening Branch for 90 days. montelukast 2021- No [id number] 10mg Take 1 [facility] 10 mg 10-24 103 tablet by ity of tablet 00:00: 05:59 mouth [place] 00 :00 every Medical evening Branch for 90 days. montelukast 2021- No [id number] 10mg Take 1 [facility] 10 mg 10-24 103 tablet by ity of tablet 00:00: 05:59 mouth [place] 00 :00 every Medical evening Branch for 90 days. montelukast 2021- No [id number] 10mg Take 1 [facility] 10 mg 10-24 103 tablet by ity of tablet 00:00: 05:59 mouth [place] 00 :00 every Medical evening Branch for 90 days. montelukast 2021- No [id number] 10mg Take 1 [facility] 10 mg 10-24 103 tablet by ity of tablet 00:00: 05:59 mouth [place] 00 :00 every Medical evening Branch for 90 days. montelukast 2021- No [id number] 10mg Take 1 [facility] 10 mg 10-24 103 tablet by ity of tablet 00:00: 05:59 mouth [place] 00 :00 every Medical evening Branch for 90 days. montelukast 2021- No [id number] 10mg Take 1 [facility] 10 mg 10-24 103 tablet by ity of tablet 00:00: 05:59 mouth [place] 00 :00 every Medical evening Branch for 90 days. montelukast 2021- No [id number] 10mg Take 1 [facility] 10 mg 10-24 103 tablet by ity of tablet 00:00: 05:59 mouth [place] 00 :00 every Medical evening Branch for 90 days. montelukast 2021- No [id number] 10mg Take 1 [facility] 10 mg 10-24 103 tablet by ity of tablet 00:00: 05:59 mouth [place] 00 :00 every Medical evening Branch for 90 days. montelukast 2021- No [id number] 10mg Take 1 [facility] 10 mg 10-24 103 tablet by ity of tablet 00:00: 05:59 mouth [place] 00 :00 every Medical evening Branch for 90 days. montelukast 2021- No [id number] 10mg Take 1 [facility] 10 mg 10-24 103 tablet by ity of tablet 00:00: 05:59 mouth [place] 00 :00 every Medical evening Branch for 90 days. PNV 67-iron Yes [id number] 1{each} Take 1 [facility] ps-folate 8-26 Each by ity of no.1-dha 00:00: mouth [place] (VITAFOL 00 daily. Medical ULTRA) 29 Branch mg iron- 1 mg-200 mg Cap PNV 67-iron Yes [id number] 1{each} Take 1 [facility] ps-folate 8-26 Each by ity of no.1-dha 00:00: mouth [place] (VITAFOL 00 daily. Medical ULTRA) 29 Branch mg iron- 1 mg-200 mg Cap PNV 67-iron 2-0 Yes [id number] 1{each} Take 1 [facility] ps-folate 8-26 Each by ity of no.1-dha 00:00: mouth [place] (VITAFOL 00 daily. Medical ULTRA) 29 Branch mg iron- 1 mg-200 mg Cap PNV 67-iron 2-0 Yes [id number] 1{each} Take 1 [facility] ps-folate 8-26 Each by ity of no.1-dha 00:00: mouth [place] (VITAFOL 00 daily. Medical ULTRA) 29 Branch mg iron- 1 mg-200 mg Cap PNV 67-iron 2-0 Yes [id number] 1{each} Take 1 [facility] ps-folate 8-26 Each by ity of no.1-dha 00:00: mouth [place] (VITAFOL 00 daily. Medical ULTRA) 29 Branch mg iron- 1 mg-200 mg Cap PNV 67-iron 2-0 Yes [id number] 1{each} Take 1 [facility] ps-folate 8-26 Each by ity of no.1-dha 00:00: mouth [place] (VITAFOL 00 daily. Medical ULTRA) 29 Branch mg iron- 1 mg-200 mg Cap PNV 67-iron 2-0 Yes [id number] 1{each} Take 1 [facility] ps-folate 8-26 Each by ity of no.1-dha 00:00: mouth [place] (VITAFOL 00 daily. Medical ULTRA) 29 Branch mg iron- 1 mg-200 mg Cap PNV 67-iron 2-0 Yes [id number] 1{each} Take 1 [facility] ps-folate 8-26 Each by ity of no.1-dha 00:00: mouth [place] (VITAFOL 00 daily. Medical ULTRA) 29 Branch mg iron- 1 mg-200 mg Cap PNV 67-iron 2-0 Yes [id number] 1{each} Take 1 [facility] ps-folate 8-26 Each by ity of no.1-dha 00:00: mouth [place] (VITAFOL 00 daily. Medical ULTRA) 29 Branch mg iron- 1 mg-200 mg Cap PNV 67-iron 2-0 Yes [id number] 1{each} Take 1 [facility] ps-folate 8-26 Each by ity of no.1-dha 00:00: mouth [place] (VITAFOL 00 daily. Medical ULTRA) 29 Branch mg iron- 1 mg-200 mg Cap PNV 67-iron 2-0 Yes [id number] 1{each} Take 1 [facility] ps-folate 8-26 Each by ity of no.1-dha 00:00: mouth [place] (VITAFOL 00 daily. Medical ULTRA) 29 Branch mg iron- 1 mg-200 mg Cap PNV 67-iron 2-0 Yes [id number] 1{each} Take 1 [facility] ps-folate 8-26 Each by ity of no.1-dha 00:00: mouth [place] (VITAFOL 00 daily. Medical ULTRA) 29 Branch mg iron- 1 mg-200 mg Cap PNV 67-iron 2-0 Yes [id number] 1{each} Take 1 [facility] ps-folate 8-26 Each by ity of no.1-dha 00:00: mouth [place] (VITAFOL 00 daily. Medical ULTRA) 29 Branch mg iron- 1 mg-200 mg Cap PNV 67-iron 2-0 Yes [id number] 1{each} Take 1 [facility] ps-folate 8-26 Each by ity of no.1-dha 00:00: mouth [place] (VITAFOL 00 daily. Medical ULTRA) 29 Branch mg iron- 1 mg-200 mg Cap PNV 67-iron 2-0 Yes [id number] 1{each} Take 1 [facility] ps-folate 8-26 Each by ity of no.1-dha 00:00: mouth [place] (VITAFOL 00 daily. Medical ULTRA) 29 Branch mg iron- 1 mg-200 mg Cap PNV 67-iron 2-0 Yes [id number] 1{each} Take 1 [facility] ps-folate 8-26 Each by ity of no.1-dha 00:00: mouth [place] (VITAFOL 00 daily. Medical ULTRA) 29 Branch mg iron- 1 mg-200 mg Cap PNV 67-iron 2-0 Yes [id number] 1{each} Take 1 [facility] ps-folate 8-26 Each by ity of no.1-dha 00:00: mouth [place] (VITAFOL 00 daily. Medical ULTRA) 29 Branch mg iron- 1 mg-200 mg Cap PNV 67-iron 2-0 Yes [id number] 1{each} Take 1 [facility] ps-folate 8-26 Each by ity of no.1-dha 00:00: mouth [place] (VITAFOL 00 daily. Medical ULTRA) 29 Branch mg iron- 1 mg-200 mg Cap PNV 67-iron 2-0 Yes [id number] 1{each} Take 1 [facility] ps-folate 8-26 Each by ity of no.1-dha 00:00: mouth [place] (VITAFOL 00 daily. Medical ULTRA) 29 Branch mg iron- 1 mg-200 mg Cap PNV 67-iron 2-0 Yes [id number] 1{each} Take 1 [facility] ps-folate 8-26 Each by ity of no.1-dha 00:00: mouth [place] (VITAFOL 00 daily. Medical ULTRA) 29 Branch mg iron- 1 mg-200 mg Cap PNV 67-iron 2-0 Yes [id number] 1{each} Take 1 [facility] ps-folate 8-26 Each by ity of no.1-dha 00:00: mouth [place] (VITAFOL 00 daily. Medical ULTRA) 29 Branch mg iron- 1 mg-200 mg Cap PNV 67-iron 2-0 Yes [id number] 1{each} Take 1 [facility] ps-folate 8-26 Each by ity of no.1-dha 00:00: mouth [place] (VITAFOL 00 daily. Medical ULTRA) 29 Branch mg iron- 1 mg-200 mg Cap PNV 67-iron 2021-0 Yes [id number] 1{each} Take 1 [facility] ps-folate 8-26 Each by ity of no.1-dha 00:00: mouth [place] (VITAFOL 00 daily. Medical ULTRA) 29 Branch mg iron- 1 mg-200 mg Cap PNV 67-iron 2-0 Yes [id number] 1{each} Take 1 [facility] ps-folate 8-26 Each by ity of no.1-dha 00:00: mouth [place] (VITAFOL 00 daily. Medical ULTRA) 29 Branch mg iron- 1 mg-200 mg Cap PNV 67-iron 2-0 Yes [id number] 1{each} Take 1 [facility] ps-folate 8-26 Each by ity of no.1-dha 00:00: mouth [place] (VITAFOL 00 daily. Medical ULTRA) 29 Branch mg iron- 1 mg-200 mg Cap PNV 67-iron 2-0 Yes [id number] 1{each} Take 1 [facility] ps-folate 8-26 Each by ity of no.1-dha 00:00: mouth [place] (VITAFOL 00 daily. Medical ULTRA) 29 Branch mg iron- 1 mg-200 mg Cap PNV 67-iron 2-0 Yes [id number] 1{each} Take 1 [facility] ps-folate 8-26 Each by ity of no.1-dha 00:00: mouth [place] (VITAFOL 00 daily. Medical ULTRA) 29 Branch mg iron- 1 mg-200 mg Cap PNV 67-iron 2-0 Yes [id number] 1{each} Take 1 [facility] ps-folate 8-26 Each by ity of no.1-dha 00:00: mouth [place] (VITAFOL 00 daily. Medical ULTRA) 29 Branch mg iron- 1 mg-200 mg Cap PNV 67-iron 2-0 Yes [id number] 1{each} Take 1 [facility] ps-folate 8-26 Each by ity of no.1-dha 00:00: mouth [place] (VITAFOL 00 daily. Medical ULTRA) 29 Branch mg iron- 1 mg-200 mg Cap PNV 67-iron 2-0 Yes [id number] 1{each} Take 1 [facility] ps-folate 8-26 Each by ity of no.1-dha 00:00: mouth [place] (VITAFOL 00 daily. Medical ULTRA) 29 Branch mg iron- 1 mg-200 mg Cap PNV 67-iron 2-0 Yes [id number] 1{each} Take 1 [facility] ps-folate 8-26 Each by ity of no.1-dha 00:00: mouth [place] (VITAFOL 00 daily. Medical ULTRA) 29 Branch mg iron- 1 mg-200 mg Cap PNV 67-iron 2-0 Yes [id number] 1{each} Take 1 [facility] ps-folate 8-26 Each by ity of no.1-dha 00:00: mouth [place] (VITAFOL 00 daily. Medical ULTRA) 29 Branch mg iron- 1 mg-200 mg Cap PNV 67-iron 2-0 Yes [id number] 1{each} Take 1 [facility] ps-folate 8-26 Each by ity of no.1-dha 00:00: mouth [place] (VITAFOL 00 daily. Medical ULTRA) 29 Branch mg iron- 1 mg-200 mg Cap PNV 67-iron 2-0 Yes [id number] 1{each} Take 1 [facility] ps-folate 8-26 Each by ity of no.1-dha 00:00: mouth [place] (VITAFOL 00 daily. Medical ULTRA) 29 Branch mg iron- 1 mg-200 mg Cap PNV 67-iron 2-0 Yes [id number] 1{each} Take 1 [facility] ps-folate 8-26 Each by ity of no.1-dha 00:00: mouth [place] (VITAFOL 00 daily. Medical ULTRA) 29 Branch mg iron- 1 mg-200 mg Cap PNV 67-iron 2-0 Yes [id number] 1{each} Take 1 [facility] ps-folate 8-26 Each by ity of no.1-dha 00:00: mouth [place] (VITAFOL 00 daily. Medical ULTRA) 29 Branch mg iron- 1 mg-200 mg Cap PNV 67-iron 2-0 Yes [id number] 1{each} Take 1 [facility] ps-folate 8-26 Each by ity of no.1-dha 00:00: mouth [place] (VITAFOL 00 daily. Medical ULTRA) 29 Branch mg iron- 1 mg-200 mg Cap PNV 67-iron 2-0 Yes [id number] 1{each} Take 1 [facility] ps-folate 8-26 Each by ity of no.1-dha 00:00: mouth [place] (VITAFOL 00 daily. Medical ULTRA) 29 Branch mg iron- 1 mg-200 mg Cap PNV 67-iron 2021-0 Yes [id number] 1{each} Take 1 [facility] ps-folate 8-26 Each by ity of no.1-dha 00:00: mouth [place] (VITAFOL 00 daily. Medical ULTRA) 29 Branch mg iron- 1 mg-200 mg Cap PNV 67-iron 2021-0 Yes [id number] 1{each} Take 1 [facility] ps-folate 8-26 Each by ity of no.1-dha 00:00: mouth [place] (VITAFOL 00 daily. Medical ULTRA) 29 Branch mg iron- 1 mg-200 mg Cap PNV 67-iron 2-0 Yes [id number] 1{each} Take 1 [facility] ps-folate 8-26 Each by ity of no.1-dha 00:00: mouth [place] (VITAFOL 00 daily. Medical ULTRA) 29 Branch mg iron- 1 mg-200 mg Cap PNV 67-iron 2-0 Yes [id number] 1{each} Take 1 [facility] ps-folate 8-26 Each by ity of no.1-dha 00:00: mouth [place] (VITAFOL 00 daily. Medical ULTRA) 29 Branch mg iron- 1 mg-200 mg Cap PNV 67-iron 2021-0 Yes [id number] 1{each} Take 1 [facility] ps-folate 8-26 Each by ity of no.1-dha 00:00: mouth [place] (VITAFOL 00 daily. Medical ULTRA) 29 Branch mg iron- 1 mg-200 mg Cap PNV 67-iron 2021-0 Yes [id number] 1{each} Take 1 [facility] ps-folate 8-26 Each by ity of no.1-dha 00:00: mouth [place] (VITAFOL 00 daily. Medical ULTRA) 29 Branch mg iron- 1 mg-200 mg Cap PNV 67-iron 2021-0 Yes [id number] 1{each} Take 1 [facility] ps-folate 8-26 Each by ity of no.1-dha 00:00: mouth [place] (VITAFOL 00 daily. Medical ULTRA) 29 Branch mg iron- 1 mg-200 mg Cap PNV 67-iron 2021-0 2022- No [id number] 1{each} Take 1 [facility] ps-folate 8-26 03-04 Each by ity of no.1-dha 00:00: 00:00 mouth [place] (VITAFOL 00 :00 daily. Medical ULTRA) 29 Branch mg iron- 1 mg-200 mg Cap PNV 67-iron 2021-0 2022- No [id number] 1{each} Take 1 [facility] ps-folate 8-26 03-04 Each by ity of no.1-dha 00:00: 00:00 mouth [place] (VITAFOL 00 :00 daily. Medical ULTRA) 29 Branch mg iron- 1 mg-200 mg Cap Budesonide 2021-0 Yes [id number] 1{puff} Inhale 1 [facility] 90 8-08 103 Puff in ity of mcg/actuati 00:00: the [place] on aerosol 00 morning Medica l powder and 1 Puff Branch in the evening. Budesonide 2021-0 Yes [id number] 1{puff} Inhale 1 [facility] 90 8-08 103 Puff in ity of mcg/actuati 00:00: the [place] on aerosol 00 morning Medica l powder and 1 Puff Branch in the evening. Budesonide Yes [id number] 1{puff} Inhale 1 [facility] 90 8-08 103 Puff in ity of mcg/actuati 00:00: the [place] on aerosol 00 morning Medica l powder and 1 Puff Branch in the evening. Budesonide Yes [id number] 1{puff} Inhale 1 [facility] 90 8-08 103 Puff in ity of mcg/actuati 00:00: the [place] on aerosol 00 morning Medica l powder and 1 Puff Branch in the evening. Budesonide Yes [id number] 1{puff} Inhale 1 [facility] 90 8-08 103 Puff in ity of mcg/actuati 00:00: the [place] on aerosol 00 morning Medica l powder and 1 Puff Branch in the evening. Budesonide Yes [id number] 1{puff} Inhale 1 [facility] 90 8-08 103 Puff in ity of mcg/actuati 00:00: the [place] on aerosol morning Medica l powder and 1 Puff Branch in the evening. Budesonide Yes [id number] 1{puff} Inhale 1 [facility] 90 8-08 103 Puff in ity of mcg/actuati 00:00: the [place] on aerosol morning Medica l powder and 1 Puff Branch in the evening. Budesonide Yes [id number] 1{puff} Inhale 1 [facility] 90 8-08 103 Puff in ity of mcg/actuati 00:00: the [place] on aerosol morning Medica l powder and 1 Puff Branch in the evening. Budesonide Yes [id number] 1{puff} Inhale 1 [facility] 90 8-08 103 Puff in ity of mcg/actuati 00:00: the [place] on aerosol 00 morning Medica l powder and 1 Puff Branch in the evening. Budesonide Yes [id number] 1{puff} Inhale 1 [facility] 90 8-08 103 Puff in ity of mcg/actuati 00:00: the [place] on aerosol 00 morning Medica l powder and 1 Puff Branch in the evening. Budesonide Yes [id number] 1{puff} Inhale 1 [facility] 90 8-08 103 Puff in ity of mcg/actuati 00:00: the on aerosol morning Medica l powder and 1 Puff Branch in the evening. Budesonide Yes [id number] 1{puff} Inhale 1 [facility] 90 8-08 103 Puff in ity of mcg/actuati 00:00: the on aerosol morning Medica l powder and 1 Puff Branch in the evening. Budesonide Yes [id number] 1{puff} Inhale 1 [facility] 90 8-08 103 Puff in ity of mcg/actuati 00:00: the on aerosol morning Medica l powder and 1 Puff Branch in the evening. Budesonide Yes [id number] 1{puff} Inhale 1 [facility] 90 8-08 103 Puff in ity of mcg/actuati 00:00: the [place] on aerosol morning Medica l powder and 1 Puff Branch in the evening. Budesonide Yes [id number] 1{puff} Inhale 1 [facility] 90 8-08 103 Puff in ity of mcg/actuati 00:00: the [place] on aerosol morning Medica l powder and 1 Puff Branch in the evening. Budesonide Yes [id number] 1{puff} Inhale 1 [facility] 90 8-08 103 Puff in ity of mcg/actuati 00:00: the [place] on aerosol morning Medica l powder and 1 Puff Branch in the evening. Budesonide Yes [id number] 1{puff} Inhale 1 [facility] 90 8-08 103 Puff in ity of mcg/actuati 00:00: the on aerosol morning Medica l powder and 1 Puff Branch in the evening. Budesonide 0 Yes [id number] 1{puff} Inhale 1 [facility] 90 8-08 103 Puff in ity of mcg/actuati 00:00: the on aerosol 00 morning Medica l powder and 1 Puff Branch in the evening. Budesonide 0 Yes [id number] 1{puff} Inhale 1 [facility] 90 8-08 103 Puff in ity of mcg/actuati 00:00: the on aerosol morning Medica l powder and 1 Puff Branch in the evening. Budesonide Yes [id number] 1{puff} Inhale 1 [facility] 90 8-08 103 Puff in ity of mcg/actuati 00:00: the [place] on aerosol 00 morning Medica l powder and 1 Puff Branch in the evening. Budesonide Yes [id number] 1{puff} Inhale 1 [facility] 90 8-08 103 Puff in ity of mcg/actuati 00:00: the [place] on aerosol 00 morning Medica l powder and 1 Puff Branch in the evening. Budesonide Yes [id number] 1{puff} Inhale 1 [facility] 90 8-08 103 Puff in ity of mcg/actuati 00:00: the [place] on aerosol 00 morning Medica l powder and 1 Puff Branch in the evening. Budesonide Yes [id number] 1{puff} Inhale 1 [facility] 90 8-08 103 Puff in ity of mcg/actuati 00:00: the [place] on aerosol morning Medica l powder and 1 Puff Branch in the evening. Budesonide Yes [id number] 1{puff} Inhale 1 [facility] 90 8-08 103 Puff in ity of mcg/actuati 00:00: the [place] on aerosol morning Medica l powder and 1 Puff Branch in the evening. Budesonide Yes [id number] 1{puff} Inhale 1 [facility] 90 8-08 103 Puff in ity of mcg/actuati 00:00: the [place] on aerosol morning Medica l powder and 1 Puff Branch in the evening. Budesonide Yes [id number] 1{puff} Inhale 1 [facility] 90 8-08 103 Puff in ity of mcg/actuati 00:00: the [place] on aerosol 00 morning Medica l powder and 1 Puff Branch in the evening. Budesonide Yes [id number] 1{puff} Inhale 1 [facility] 90 8-08 103 Puff in ity of mcg/actuati 00:00: the [place] on aerosol 00 morning Medica l powder and 1 Puff Branch in the evening. Budesonide Yes [id number] 1{puff} Inhale 1 [facility] 90 8-08 103 Puff in ity of mcg/actuati 00:00: the on aerosol 00 morning Medica l powder and 1 Puff Branch in the evening. Budesonide Yes [id number] 1{puff} Inhale 1 [facility] 90 8-08 103 Puff in ity of mcg/actuati 00:00: the on aerosol 00 morning Medica l powder and 1 Puff Branch in the evening. Budesonide Yes [id number] 1{puff} Inhale 1 [facility] 90 8-08 103 Puff in ity of mcg/actuati 00:00: the on aerosol morning Medica l powder and 1 Puff Branch in the evening. Budesonide Yes [id number] 1{puff} Inhale 1 [facility] 90 8-08 103 Puff in ity of mcg/actuati 00:00: the [place] on aerosol morning Medica l powder and 1 Puff Branch in the evening. Budesonide Yes [id number] 1{puff} Inhale 1 [facility] 90 8-08 103 Puff in ity of mcg/actuati 00:00: the [place] on aerosol morning Medica l powder and 1 Puff Branch in the evening. Budesonide Yes [id number] 1{puff} Inhale 1 [facility] 90 8-08 103 Puff in ity of mcg/actuati 00:00: the [place] on aerosol morning Medica l powder and 1 Puff Branch in the evening. Budesonide Yes [id number] 1{puff} Inhale 1 [facility] 90 8-08 103 Puff in ity of mcg/actuati 00:00: the on aerosol morning Medica l powder and 1 Puff Branch in the evening. Budesonide Yes [id number] 1{puff} Inhale 1 [facility] 90 8-08 103 Puff in ity of mcg/actuati 00:00: the on aerosol 00 morning Medica l powder and 1 Puff Branch in the evening. Budesonide Yes [id number] 1{puff} Inhale 1 [facility] 90 8-08 103 Puff in ity of mcg/actuati 00:00: the on aerosol 00 morning Medica l powder and 1 Puff Branch in the evening. Budesonide Yes [id number] 1{puff} Inhale 1 [facility] 90 8-08 103 Puff in ity of mcg/actuati 00:00: the [place] on aerosol 00 morning Medica l powder and 1 Puff Branch in the evening. Budesonide Yes [id number] 1{puff} Inhale 1 [facility] 90 8-08 103 Puff in ity of mcg/actuati 00:00: the on aerosol 00 morning Medica l powder and 1 Puff Branch in the evening. Budesonide Yes [id number] 1{puff} Inhale 1 [facility] 90 8-08 103 Puff in ity of mcg/actuati 00:00: the on aerosol 00 morning Medica l powder and 1 Puff Branch in the evening. Budesonide Yes [id number] 1{puff} Inhale 1 [facility] 90 8-08 103 Puff in ity of mcg/actuati 00:00: the [place] on aerosol morning Medica l powder and 1 Puff Branch in the evening. Budesonide Yes [id number] 1{puff} Inhale 1 [facility] 90 8-08 103 Puff in ity of mcg/actuati 00:00: the [place] on aerosol 00 morning Medica l powder and 1 Puff Branch in the evening. Budesonide Yes [id number] 1{puff} Inhale 1 [facility] 90 8-08 103 Puff in ity of mcg/actuati 00:00: the [place] on aerosol morning Medica l powder and 1 Puff Branch in the evening. Budesonide Yes [id number] 1{puff} Inhale 1 [facility] 90 8-08 103 Puff in ity of mcg/actuati 00:00: the [place] on aerosol 00 morning Medica l powder and 1 Puff Branch in the evening. Budesonide Yes [id number] 1{puff} Inhale 1 [facility] 90 8-08 103 Puff in ity of mcg/actuati 00:00: the [place] on aerosol 00 morning Medica l powder and 1 Puff Branch in the evening. Budesonide Yes [id number] 1{puff} Inhale 1 [facility] 90 8-08 103 Puff in ity of mcg/actuati 00:00: the [place] on aerosol 00 morning Medica l powder and 1 Puff Branch in the evening. Budesonide 3- No [id number] 1{puff} Inhale 1 [place] [id number] 09-30 03-04 103 Puff in ity of mcg/actuati 00:00: 00:00 the [place] on aerosol 00 :00 morning Medica l powder and 1 Puff Branch in the evening. Budesonide 2022- No [id number] 1{puff} Inhale 1 [facility] 90 09-30 03-04 103 Puff in ity of mcg/actuati 00:00: 00:00 the [place] on aerosol 00 :00 morning Medica l powder and 1 Puff Branch in the evening. Yes Take by Univer s vit 7-11 [...] /folic 30 Medical ( Branch VITAMIN ORAL) 0 Yes Take by Univer s vit 7-11 [...] Immunizations Ordered Filled Immunization Date Status Comments [facility] e Immunization Name Name HPV9 2022-04-26 Completed University of 00:00:00 [facility] Varicella 2022-04-26 Completed University of (varivax)(chicken 00:00:00 [place] [facility] pox) Branch HPV9 2022-04-26 Completed University of 00:00:00 [facility] Varicella 2022-04-26 Completed University of (varivax)(chicken 00:00:00 [place] [facility] pox[facility] HPV9 2022-04-26 Completed University of 00:00:00 [facility] Varicella 2022-04-26 Completed University of (varivax)(chicken 00:00:00 [place] [facility] pox) Branch HPV9 2022-04-26 Completed University of 00:00:00 [facility] Varicella 2022-04-26 Completed University of (varivax)(chicken 00:00:00 [place] [facility] pox) Branch TDAP 2022-01-31 Completed University of 00:00:00 [facility] TDAP 2022-01-31 Completed University of 00:00:00 [facility] TDAP 2022-01-31 Completed University of 00:00:00 [facility] TDAP 2022-01-31 Completed University of 00:00:00 [facility] TDAP 2022-01-31 Completed University of 00:00:00 [facility] TDAP 2022-01-31 Completed University of 00:00:00 [facility] TDAP 2022-01-31 Completed University of 00:00:00 [facility] TDAP 2022-01-31 Completed University of 00:00:00 [facility] TDAP 2022-01-31 Completed University of 00:00:00 [facility] TDAP 2022-01-31 Completed University of 00:00:00 [facility] TDAP 2022-01-31 Completed University of 00:00:00 [facility] TDAP 2022-01-31 Completed University of 00:00:00 [facility] TDAP 2022-01-31 Completed University of 00:00:00 [facility] TDAP 2022-01-31 Completed University of 00:00:00 [facility] TDAP 2022-01-31 Completed University of 00:00:00 [place] [...] Branch TDAP 2022-01-31 Completed University of 00:00:00 [facility] TDAP 2022-01-31 Completed University of 00:00:00 [facility] TDAP 2022-01-31 Completed [facility] of 00:00:00 [place] [facility] TDAP 2022-01-31 Completed University of 00:00:00 [facility] TDAP 2022-01-31 Completed University of 00:00:00 [facility] Vital Signs Vital Name Observation Time Observation Value Comments Source Systolic blood 2022-05-06 14:11:00 136 mm[Hg] Univer sity of pressure [facility] Diastolic blood 2022-05-06 14:11:00 84 mm[Hg] Unive rsity of pressure [place] [facility] Heart rate 2022-05-06 14:11:00 88 /min [facility] [place] [facility] Body temperature 2022-05-06 14:11:00 36.78 Marycruz Univ ersity of [place] [facility] Respiratory rate 2022-05-06 14:11:00 18 /min Univ ersity of [place] [facility] Body height 2022-05-06 14:11:00 157.5 cm [facility] [place] [facility] Body weight 2022-05-06 14:11:00 58.151 kg [facility] [place] [facility] BMI 2022-05-06 14:11:00 23.45 kg/m2 [facility] [place] [facility] Systolic blood 2022-05-02 15:48:00 130 mm[Hg] manual Univer sity of pressure [place] [facility] Diastolic blood 2022-05-02 15:48:00 92 mm[Hg] manual Unive rsity of pressure [place] [facility] Heart rate 2022-05-02 15:40:00 86 /min [facility] [place] [facility] Body temperature 2022-05-02 15:40:00 36.72 Marycruz [facility] [place] [facility] Respiratory rate 2022-05-02 15:40:00 20 /min Univ ersity of [place] [facility] Body height 2022-05-02 15:40:00 157.5 cm [facility] [place] [facility] Body weight 2022-05-02 15:40:00 59.33 kg [facility] [place] [facility] BMI 2022-05-02 15:40:00 23.92 kg/m2 [facility] [place] [facility] Systolic blood 2022-04-27 02:33:00 136 mm[Hg] Univer sity of pressure [place] [facility] Diastolic blood 2022-04-27 02:33:00 86 mm[Hg] Unive rsity of pressure [place] [facility] Heart rate 2022-04-27 02:33:00 90 /min [facility] [place] [facility] Body temperature 2022-04-27 02:33:00 35.83 Mary[place]ruz [facility] [place] [facility] Respiratory rate 2022-04-27 02:33:00 18 /min Univ ersity of [facility] Oxygen saturation in 2022-04-27 02:33:00 95 /min University of Arterial blood by [facility] Pulse oximetry Branch Body weight 2022-04-24 00:00:00 67.132 kg [facility]i ty [facility] [place] [facility] BMI 2022-04-24 00:00:00 27.07 kg/m2 [facility] [place] [facility] Heart rate 2022-04-25 08:30:00 120 /min [facility] [place] [facility] Oxygen saturation in 2022-04-25 08:30:00 100 /min University of Arterial blood by [facility] Pulse oximetry Branch Systolic blood 2022-04-25 08:20:00 128 mm[Hg] Univer sity of pressure [place] [facility] Diastolic blood 2022-04-25 08:20:00 81 mm[Hg] Unive rsity of pressure [facility] Body temperature 2022-04-25 08:00:00 37.28 Marycruz Univ ersity of [facility] Respiratory rate 2022-04-25 08:00:00 16 /min Univ ersity of [facility] Body weight 2022-04-24 00:00:00 67.132 kg [facility]i [facility] [place] [facility] BMI 2022-04-24 00:00:00 27.07 kg/m2 [facility] [place] [facility] Systolic blood 2022-04-23 14:03:00 134 mm[Hg] Univer sity of pressure [place] [facility] Diastolic blood 2022-04-23 14:03:00 86 mm[Hg] Unive rsity of pressure [facility] Heart rate 2022-04-23 14:00:00 72 /min Universi ty of [facility] Body temperature 2022-04-23 14:00:00 36.72 Amrycruz Univ ersity of [facility] Respiratory rate 2022-04-23 14:00:00 20 /min Univ ersity of [facility] Body height 2022-04-23 14:00:00 157.5 cm [facility] [place] [facility] Body weight 2022-04-23 14:00:00 66.134 kg [facility] [place] [facility] BMI 2022-04-23 14:00:00 26.67 kg/m2 [facility] [place] [facility] Systolic blood 2022-04-16 19:05:00 136 mm[Hg] Univer sity of pressure [place] [facility] Diastolic blood 2022-04-16 19:05:00 89 mm[Hg] Unive rsity of pressure [facility] Heart rate 2022-04-16 19:05:00 75 /min [facility] [place] [facility] Body temperature 2022-04-16 19:05:00 36.56 Marycruz [facility] [place] [facility] Respiratory rate 2022-04-16 19:05:00 17 /min Univ ers[facility] [place] [facility] Body height 2022-04-16 19:05:00 154.9 cm [facility] [place] [facility] Body weight 2022-04-16 19:05:00 65.953 kg [facility] [place] [facility] BMI 2022-04-16 19:05:00 27.47 kg/m2 [facility] [place] [facility] Systolic blood 2022-04-08 14:53:00 132 mm[Hg] Univer sity of pressure [place] [facility] Diastolic blood 2022-04-08 14:53:00 82 mm[Hg] Unive rsity of pressure [place] [facility] Heart rate 2022-04-08 14:53:00 82 /min [facility] [place] [facility] Body temperature 2022-04-08 14:53:00 36.11 Marycruz [facility] [place] [facility] Respiratory rate 2022-04-08 14:53:00 18 /min Univ [facility] [place] [facility] Body height 2022-04-08 14:53:00 154.9 cm [facility] [place] [facility] Body weight 2022-04-08 14:53:00 65.454 kg [facility] [place] [facility] BMI 2022-04-08 14:53:00 27.27 kg/m2 [facility] [place] [facility] Systolic blood 2022-03-25 15:22:00 120 mm[Hg] Univer sity of pressure [place] [facility] Diastolic blood 2022-03-25 15:22:00 80 mm[Hg] Unive rsity of pressure [place] [facility] Heart rate 2022-03-25 15:22:00 79 /min [facility] [place] [facility] Body temperature 2022-03-25 15:22:00 36.56 Mary[place]ruz [facility] [place] [facility] Respiratory rate 2022-03-25 15:22:00 18 /min Univ [facility] [place] [facility] Body height 2022-03-25 15:22:00 157.5 cm [facility] [place] [facility] Body weight 2022-03-25 15:22:00 63.413 [...] 20:24:00 71 mm[Hg] Unive rsity of pressure [place] [facility] Heart rate 2022-02-14 20:24:00 70 /min [facility] [place] [facility] Body temperature 2022-02-14 20:24:00 36.67 Marycruz [facility] [place] [facility] Respiratory rate 2022-02-14 20:24:00 18 /min Univ [facility] [place] [facility] Body height 2022-02-14 20:24:00 157.5 cm [facility] [place] [facility] Body weight 2022-02-14 20:24:00 63.231 kg [facility] [place] [facility] BMI 2022-02-14 20:24:00 25.50 kg/m2 [...] /min University of Arterial blood by [place] [facility] Pulse oximetry Branch Body height 2022-02-05 21:58:00 157.5 cm [facility] [place] [facility] Body weight 2022-02-05 21:58:00 62.234 kg [facility] [place] [facility] BMI 2022-02-05 21:58:00 25.09 kg/m2 [facility] [place] [facility] Heart rate 2022-02-02 23:26:00 75 /min [facility] [place] [facility] Body temperature 2022-02-02 23:26:00 36.61 Marycruz [facility] [place] [facility] Respiratory rate 2022-02-02 23:26:00 18 /min Univ [facility] [place] [facility] Oxygen saturation in 2022-02-02 23:15:00 97 /min University of Arterial blood by [place] [facility] Pulse oximetry Branch Systolic blood 2022-02-02 22:45:00 122 mm[Hg] Univer sity of pressure [place] [facility] Diastolic blood 2022-02-02 22:45:00 80 mm[Hg] Unive rsity of pressure [place] [facility] Body height 2022-02-02 22:30:00 157.5 cm [facility] [place] [facility] Body weight 2022-02-02 22:30:00 62.143 [...] 2022-01-31 15:44:00 61.434 kg [facility] [place] [facility] BMI 2022-01-31 15:44:00 25.59 kg/m2 [...] 2022-01-02 17:12:00 154.9 cm [facility] [place] [facility] Body weight 2022-01-02 17:12:00 59.194 kg [facility] [place] [facility] BMI 2022-01-02 17:12:00 24.66 kg/m2 [facility] [place] [facility] Systolic blood 2021-12-11 01:13:00 111 mm[Hg] Univer sity of pressure [place] [facility] Diastolic blood 2021-12-11 01:13:00 67 mm[Hg] Unive rsity of pressure [place] [facility] Heart rate 2021-12-11 01:13:00 88 /min [facility] [place] [facility] Body temperature 2021-12-11 01:13:00 36.61 Marycruz [facility] [place] [facility] Respiratory rate 2021-12-11 01:13:00 18 /min Univ [facility] [place] [facility] Body height 2021-12-11 01:13:00 154.9 cm [facility] [place] [facility] Body weight 2021-12-11 01:13:00 58.514 kg [facility] [place] [facility] BMI 2021-12-11 01:13:00 24.37 kg/m2 [facility] [place] [facility] Oxygen saturation in 2021-12-11 01:13:00 100 /min University of Arterial blood by [facility] Pulse oximetry Branch Systolic blood 2021-12-02 16:16:00 100 mm[Hg] Univer sity of pressure [place] [facility] Diastolic blood 2021-12-02 16:16:00 66 mm[Hg] Unive rsity of pressure [place] [facility] Heart rate 2021-12-02 16:16:00 67 /min [facility] [place] [facility] Body temperature 2021-12-02 16:16:00 36.78 Marycruz [facility] [place] [facility] Respiratory rate 2021-12-02 16:16:00 18 /min Univ [facility] [place] [facility] Body height 2021-12-02 16:16:00 157.5 cm [facility] [place] [facility] Body weight 2021-12-02 16:16:00 56.87 kg [facility] [place] [facility] BMI 2021-12-02 16:16:00 22.93 kg/m2 [facility] [place] [facility] Systolic blood 2021-11-04 18:16:00 119 mm[Hg] Univer sity of pressure [place] [facility] Diastolic blood 2021-11-04 18:16:00 67 mm[Hg] Unive rsity of pressure [place] [facility] Heart rate 2021-11-04 18:16:00 82 /min [facility] [place] [facility] Body temperature 2021-11-04 18:16:00 36.89 Marycruz [facility] [place] [facility] Respiratory rate 2021-11-04 18:16:00 18 /min [facility] Body height 2021-11-04 18:16:00 157.5 cm Universi [facility] Body weight 2021-11-04 18:16:00 56.246 kg [facility] BMI 2021-11-04 18:16:00 22.68 kg/m2 [facility] Systolic blood 2021-10-24 20:30:00 105 mm[facility]Hg] [facility] Diastolic blood 2021-10-24 20:30:00 69 mm[Hg] [facility] Heart rate 2021-10-24 20:30:00 81 /min [facility] Body temperature 2021-10-24 20:30:00 37.22 Marycruz [facility] Respiratory rate 2021-10-24 20:30:00 18 /min [facility] Body height 2021-10-24 20:30:00 157.5 cm [facility] Body weight 2021-10-24 20:30:00 55.747 kg [facility] BMI 2021-10-24 20:30:00 22.48 kg/m2 [facility] Procedures Procedure Date / Time Performing Clinician Source Performed CBC WITH DIFF 2022-04-26 09:49:00 Sree [facility] CBC WITH DIFF 2022-04-26 09:49:00 Sree [facility] VENOUS CORD GAS 2022-04-25 09:46:00 [facility] VENOUS CORD GAS 2022-04-25 09:46:00 [facility] SECTION 2022-04-25 08:35:00 Emilee Villarreal [facility] NE[facility]AX[facility] 2022-04-24 17:48:00 Jessica Hazel [facility] SGOT (ASPARTATE AMINO 2022-04-24 05:40:00 Karley Rogers [facility]) Medical Branch CREATININE 2022-04-24 05:40:00 Ken, [facility] ALANINE AMINO 2022-04-24 05:40:00 Ken, [facility] TRANSFERASE([facility] Medical Branch LACTATE DEHYDROGENASE 2022-04-24 05:40:00 Ken, [facility] URIC ACID 2022-04-24 05:40:00 Ken, [facility] URINALYSIS 2022-04-24 05:40:00 Ken, [facility] PROTEIN CREAT RATIO 2022-04-24 05:40:00 Ken, [facility] URINE RANDOM Medical Branch SGOT (ASPARTATE AMINO 2022-04-24 05:40:00 Ken, [facility] TRANSFER) Medical Branch CREATININE 2022-04-24 05:40:00 Ken, [facility] ALANINE AMINO 2022-04-24 05:40:00 Ken, [facility] TRANSFERASE([facility] Medical Branch LACTATE DEHYDROGENASE 2022-04-24 05:40:00 Ken, [facility] URIC ACID 2022-04-24 05:40:00 Ken, [facility] URINALYSIS 2022-04-24 05:40:00 Ken, [facility] PROTEIN CREAT RATIO 2022-04-24 05:40:00 Ken, [facility] URINE RANDOM Medical Branch CBC WITH DIFF 2022-04-24 02:47:00 [facility] HEPATITIS B SURFACE 2022-04-24 02:47:00 [facility] ANTIGEN Medical Branch HIV 1/2 AG-AB WITH 2022-04-24 02:47:00 Blayne Beckham [facility] REFLEX Medical Branch SYPHILIS IGG/IGM 2022-04-24 02:47:00 [facility] CBC WITH DIFF 2022-04-24 02:47:00 [facility] HEPATITIS B SURFACE 2022-04-24 02:47:00 [facility] ANTIGEN [facility] HIV 1/2 AG-AB WITH 2022-04-24 02:47:00 Blayne Beckham [facility] REFLEX [facility] SYPHILIS IGG/IGM 2022-04-24 02:47:00 [place] HB ABO GROUPING 2022-04-24 02:43:00 [facility] RHO (D) IMMUNE GLOBULIN 2022-04-24 02:43:00 Jenusaitis, Luke [facility] HB ABO GROUPING 2022-04-24 02:43:00 [facility] RHO (D) IMMUNE GLOBULIN 2022-04-24 02:43:00 Jenusaitis, Luke [facility] POCT URINALYSIS 2022-04-23 14:02:00 Lian Simms [facility] POCT URINALYSIS 2022-04-16 00:00:00 Lian Simms [facility] POCT URINALYSIS 2022-04-08 14:56:00 Lian Simms [facility] POCT URINALYSIS 2022-03-25 00:00:00 Lian Simms [facility] POCT URINALYSIS 2022-03-13 19:22:00 Eddie Simmsilbelinda Brizuela [facility] 3 HR GLUCOSE TOLERANCE 2022-02-27 17:23:00 Astrid Barnett [facility] 2 HR GLUCOSE TOLERANCE 2022-02-27 16:23:00 Astrid Barnett [facility] 1 HR GLUCOSE TOLERANCE 2022-02-27 15:23:00 Astrid Barnett [facility] POCT URINALYSIS 2022-02-27 14:29:00 Lian Simms [facility] GALV ONLY - SYPHILIS 2022-02-27 14:20:00 [facility] GLUCOSE FASTING 2022-02-27 14:20:00 Astrid Barnett [facility] 3 HR GLUCOSE TOLERANCE 2022-02-27 14:20:00 Astrid Barnett [facility] HIV 1/2 AG-AB WITH 2022-02-27 14:20:00 Lian Simms [facility] REFLEX [facility] POCT URINALYSIS 2022-02-14 20:25:00 Lian Simms [facility] AMYLASE 2022-02-06 01:15:00 Madhuri Orozco [facility] LIPASE 2022-02-06 01:15:00 Cristofer [facility] COMP. METABOLIC PANEL 2022-02-06 01:15:00 Madhuri Orozco [facility] ([id number]) [facility] CBC WITH DIFF 2022-02-06 01:15:00 Madhuri Orozco [facility] US ABDOMEN LIMITED 2022-02-06 00:52:51 Cristofer Madhuri [facility] CONSENT/REFUSAL FOR 2022-02-05 21:54:06 Doctor Unassigned, No [facility] DIAGNOSIS AND TREATMENT Name Medical Branch ASSIGNMENT OF BENEFITS 2022-02-02 21:50:55 Doctor Unassigned, No [facility] CONSENT/REFUSAL FOR 2022-02-02 21:49:43 Doctor Unassigned, No [facility] DIAGNOSIS AND TREATMENT [facility] GLUCOSE 1 HOUR POST 2022-01-31 16:42:00 Astrid Barnett [facility] CBC WITH DIFF 2022-01-31 16:42:00 Astrid Barnett [facility] TDAP VACCINE, >11 YRS, 2022-01-31 15:55:44 Lian Simms [facility] POCT URINALYSIS 2022-01-31 15:44:00 Lian Simms [facility] POCT URINALYSIS 2022-01-02 00:00:00 Lian Simms [facility] URINALYSIS 2021-12-11 01:30:00 Lizett Wei [facility] CONSENT/REFUSAL FOR 2021-12-11 00:26:08 Doctor Unassigned, No Un [facility] DIAGNOSIS AND TREATMENT Name Medical [place] POCT URINALYSIS 2021-12-02 16:23:00 Lian Simms [facility] POCT URINALYSIS 2021-11-04 18:17:00 Lian Simms [facility] FIRST TRIMESTER TRISOMY 2021-10-25 20:33:00 Rosalia Purdy [facility] POCT URINALYSIS 2021-10-24 21:13:00 Lian Simms [facility] Encounters Start End Encounter Admission Attending Care Care Encounter Source Date/Time Date/Time Type Type Clinicians Facility Department ID 2022-02-02 Outpatient X [facility] [id number] Univers 18:33:42 ity [facility] 2022-05-06 2022-05-06 Nurse Visit, InocenteWmchealthp Nurse [facility] 1.2 .840.114 [id number] Univers 09:00:00 09:32:21 Visit Lian Simms BOILERMAKER APPRENTICE 350.1.13. 10 ity of [facility] 4.2.7.2.686 Jose as MATERNAL [id number] [facility] ical & CHILD [address] [place] [address] 2022-05-06 2022-05-06 Outpatient R NICKSIFABY, [facility] [id number] Univers 09:00:00 09:00:00 LIAN lam o [facility] 2022-05-02 2022-05-02 Outpatient R AKINSIPE, [facility] [id number] Univers 09:30:00 09:59:05 LIAN gregoryy o f [facility] 2022-05-02 2022-05-02 Nurse Visit, InocenteWmchealthvidya Nurse [facility] 1.2 .840.114 [id number] Univers 09:30:00 09:59:05 Visit Lian Simms BOILERMAKER APPRENTICE 350.1.13. 10 ity of [facility] 4.2.7.2.686 Jose as MATERNAL [id number] [facility] ical & CHILD [address] [place] [address] 2022-04-23 2022-04-26 Hospital LEROY Archuleta 1.2.840.114 [id number] Univers 18:02:00 22:17:00 Encounter Chip MILLS 350.1.13.10 ity of [facility] 4.2.7.2.686 Jose as [id number] [facility] [address] 2022-04-26 2022-04-26 Telephone [facility] 1.2.840.114 [id number] Univers 00:00:00 00:00:00 Lian C BOILERMAKER APPRENTICE 350.1.13.10 ity of [facility] 4.2.7.2.686 Jose as MATERNAL [id number] Med ical & CHILD [address] [place] [address] 2022-04-25 2022-04-25 Surgery LEROY Villarreal 1.2.840.114 [id number] Univers 02:10:00 03:52:00 Chaseshanel MILLS 350.1.13.10 it y of [facility] 4.2.7.2.686 [place] [id number] [facility] [address] 2022-04-24 2022-04-24 Anesthesia Daquan Bowman 1.2.8 40.114 [id number] Univers 11:17:00 11:17:00 Event Ronen Presley 350.1.13.10 ity [facility] 4.2.7.2.686 Jose as [id number] [facility] [address] 2022-04-23 2022-04-23 Outpatient R DEMI, [facility] [id number] Univers 08:00:00 08:21:15 LIAN ity o f [facility] 2022-04-23 2022-04-23 Routine [facility] 1.2.491.098 [id number] Univers 08:00:00 08:21:15 Lian C BOILERMAKER APPRENTICE 350.1.13.10 ity of Visit [facility] 4.2.7.2.686 Jose as MATERNAL [id number] Med ical & CHILD [address] [place] [address] 2022-04-23 2022-04-23 Outpatient R DEMI, [facility] [id number] Univers 08:00:00 08:21:15 LIAN ity o f [facility] 2022-04-22 2022-04-22 Refill [facility] 1.2.740.591 [id number] Univers 00:00:00 00:00:00 Lian C BOILERMAKER APPRENTICE 350.1.13.10 ity of REGIONAL 4.2.7.2.686 Jose as MATERNAL [id number] [facility] & CHILD [address] [place] [address] 2022-04-16 2022-04-16 [facility] [id number] [facility] 13:15:00 13:35:23 LIAN ity o f [facility] 2022-04-16 2022-04-16 Routine [facility] 1.2.074.573 [id number] Univers 13:15:00 13:35:23 Lian C BOILERMAKER APPRENTICE 350.1.13.10 ity of Visit REGIONAL 4.2.7.2.686 Jose as MATERNAL [id number] [address] 2022-04-09 2022-04-09 Telephone [facility] 1.2.840.114 [id number] Univers 00:00:00 00:00:00 Lian C BOILERMAKER APPRENTICE 350.1.13.10 ity of REGIONAL 4.2.7.2.686 Jose as MATERNAL [id number] [facility] & [address] 2022-04-08 2022-04-08 Outpatient [facility] [id number] Univers 09:00:00 09:53:37 LIAN ity o f [facility] 2022-04-08 2022-04-08 Routine [facility] 1.2.948.915 [id number] Univers 09:00:00 09:53:37 Lian C BOILERMAKER APPRENTICE 350.1.13.10 ity of Visit REGIONAL 4.2.7.2.686 Jose as MATERNAL [id number] [facility] & CHILD [address] [place] [address] 2022-03-27 2022-03-27 Outpatient [facility] [id number] [facility] 14:45:00 14:45:00 LIAN ity o f [facility] 2022-03-27 2022-03-27 Telephone [facility] 1.2.840.114 10 [id number] Univers 00:00:00 00:00:00 Lian C BOILERMAKER APPRENTICE 350.1.13.10 ity of REGIONAL 4.2.7.2.686 Jose as MATERNAL [id number] [facility] CHILD [address] [place] [address] 2022-03-27 2022-03-[address] [facility] 1.2.840.114 [id number] Univers 00:00:00 00:00:00 Lian C BOILERMAKER APPRENTICE 350.1.13.10 ity of REGIONAL 4.2.7.2.686 Jose as MATERNAL [id number] [facility] & [address] 2022-03-25 2022-03-[address] [facility] [id number] Univers 09:00:00 09:39:39 LIAN ity o f [facility] 2022-03-25 2022-03-25 Routine [facility] 1.2.999.640 [id number] Univers 09:00:00 09:39:39 Lian C BOILERMAKER APPRENTICE 350.1.13.10 ity of Visit REGIONAL 4.2.7.2.686 Jose as MATERNAL [id number] [address] 2022-03-25 2022-03-[address] [facility] 1.2.840.114 [id number] Univers 00:00:00 00:00:00 Lian C BOILERMAKER APPRENTICE 350.1.13.10 ity of REGIONAL 4.2.7.2.686 Jose as MATERNAL [id number] [address] 2022-03-24 2022-03-24 Telephone [facility] 1.2.840.114 10 [id number] Univers 00:00:00 00:00:00 Lian C BOILERMAKER APPRENTICE 350.1.13.10 ity of REGIONAL 4.2.7.2.686 Jose as MATERNAL [id number] [facility] CHILD [address] [place] [address] 2022-03-17 2022-03-17 Nurse LEROY Fowler 1.2.840.114 [id number] Univers 00:00:00 00:00:00 Triage Jose Cruz MILLS 350.1.13.10 ity of HOSPITAL 4.2.7.2.686 Jose as [id number] [address] 2022-03-13 2022-03-13 Outpatient R AKINSIPE, [facility] [id number] Univers 13:15:00 13:43:58 LIAN ity o f [facility] 2022-03-13 2022-03-13 Routine [facility] 1.2.592.153 [id number] Univers 13:15:00 13:43:58 Lian C BOILERMAKER APPRENTICE 350.1.13.10 ity of Visit REGIONAL 4.2.7.2.686 Jose as MATERNAL [id number] [facility] & CHILD [address] [place] [address] 2022-02-27 2022-02-27 Outpatient R AKINSIPE, [facility] [id number] Univers 08:00:00 08:59:40 LIAN ity o f [facility] 2022-02-27 2022-02-27 Routine [facility] 1.2.419.726 [id number] Univers 08:00:00 08:59:40 Lian C BOILERMAKER APPRENTICE 350.1.13.10 ity of Visit REGIONAL 4.2.7.2.686 Jose as MATERNAL [id number] [facility] & [address] 2022-02-19 2022-02-19 Telephone Provider, [facility] 1.2.840.114 [id number] Univers 00:00:00 00:00:00 Ang-Rmchp BOILERMAKER APPRENTICE 350.1.13.10 ity of Temp REGIONAL 4.2.7.2.686 Jose as MATERNAL [id number] [facility] CHILD [address] [place] [address] 2022-02-14 2022-02-14 Outpatient R AKINSIPE, [facility] [id number] Univers 13:45:00 14:46:03 LIAN ity o f [facility] 2022-02-14 2022-02-14 Routine Provider, Marcos-Rmchp Temp [facility] 1 .2.840.114 [id number] Univers 13:45:00 14:46:03 Lian Simms BOILERMAKER APPRENTICE 350.1.13 .10 ity of Visit [facility] 4.2.7.2.686 Jose as MATERNAL [id number] [facility] CHILD [address] [place] [address] 2022-02-14 2022-02-14 Outpatient R DEMI [facility] [id number] Univers 09:45:00 09:45:00 LIAN astorga f [facility] 2022-02-07 2022-02-07 Telephone [facility] 1.2.840.114 [id number] Univers 00:00:00 00:00:00 Lian Brizuela BOILERMAKER APPRENTICE 350.1.13.10 ity of REGIONAL 4.2.7.2.686 Jose as MATERNAL [id number] [facility] & CHILD [address] [place] [address] 2022-02-05 2022-02-05 Outpatient X MADHURI OROZCO [facility] [id number] Univers 16:03:00 21:25:00 ity of [facility] 2022-02-05 2022-02-05 Emergency Madhuri Orozco [facility] 1.2.840.114 [id number] Univers 16:03:00 21:25:00 [facility] 350.1.13.10 i ty [facility] 4.2.7.2.686 [place] [id number] [address] 2022-02-05 2022-02-05 Telephone [facility] 1.2.840.114 [id number] Univers 00:00:00 00:00:00 Lian Brizuela BOILERMAKER APPRENTICE 350.1.13.10 ity of REGIONAL 4.2.7.2.686 Jose as MATERNAL [id number] [facility] CHILD [address] [place] [address] 2022-02-04 2022-02-04 Telephone Demi [facility] 1.2.840.114 [id number] Univers 00:00:00 00:00:00 Lian C BOILERMAKER APPRENTICE 350.1.13.10 ity of [facility] 4.2.7.2.686 Jose as MATERNAL [id number] [facility] & CHILD [address] [place] [address] 2022-02-02 2022-02-02 Outpatient X ADUM, [facility] [id number] Univers 15:56:00 17:30:00 LIZETT ity [facility] 2022-02-02 2022-02-02 Emergency Adum, [facility] 1.2.282.137 [id number] Univers 15:56:00 17:30:00 Lizett Barbara [place] 350.1.13.10 ity of [place] 4.2.7.2.686 [facility] [id number] [address] 2022-02-02 2022-02-02 Case Miguel [facility] 1.2.840.114 [id number] Univers 00:00:00 00:00:00 Management Astrid Garcia BOILERMAKER APPRENTICE 350.1.13.10 ity of [facility] 4.2.7.2.686 Jose as MATERNAL [id number] [facility] ical & CHILD [address] [place] [address] 2022-01-31 2022-01-31 Outpatient R DEMI [facility] [id number] Univers 09:45:00 10:15:27 LIAN ity o f [facility] 2022-01-31 2022-01-31 Routine [facility] 1.2.256.526 [id number] Univers 09:45:00 10:15:27 Lian C BOILERMAKER APPRENTICE 350.1.13.10 ity of Visit [facility] 4.2.7.2.686 Jose as MATERNAL [id number] [facility] & CHILD [address] [place] [address] 2022-01-02 2022-01-02 Outpatient R MIGUEL ANGEL [facility] [id number] Univers 10:45:00 11:43:22 ASTRID itshanel [facility] 2022-01-02 2022-01-02 Routine Provider, [facility] 1 .2.840.114 [id number] Univers 10:45:00 11:43:22 Astrid Barnett BOILERMAKER APPRENTICE 350.1.13. 10 ity of Visit REGIONAL 4.2.7.2.686 Jose as MATERNAL [id number] [facility] ical & CHILD [address] [place] [address] 2021-12-30 2021-12-[address] [facility] [id number] Univers 11:00:00 11:00:00 LIAN astorga f [facility] 2021-12-19 2021-12-19 Abstract [facility] 1.2.840.114 [id number] Univers 00:00:00 00:00:00 Lian Brizuela BOILERMAKER APPRENTICE 350.1.13.10 ity of REGIONAL 4.2.7.2.686 Jose as MATERNAL [id number] [facility] & CHILD [address] [place] [address] 2021-12-13 2021-12-13 Centerpuncher Ultrasound, [facility] 1.2 .840.114 [id number] Univers 13:00:00 14:15:00 Visit Josesito Carrillo BOILERMAKER APPRENTICE 350.1.13.10 ity of [facility] 4.2.7.2.686 Jose as MATERNAL [id number] [facility] ical & CHILD [address] [facility] [place] 2021-12-13 2021-12-13 Outpatient P JOSESITO CARRILLO [facility] [id number] Univers 13:00:00 13:00:00 JOSESITO CARRILLO [facility] 2021-12-10 2021-12-10 Outpatient X ADUM, [facility] [id number] Univers 19:40:00 21:30:00 LIZETT lam [facility] 2021-12-10 2021-12-10 Emergency Adum, [facility] 1.2.177.046 [id number] Univers 19:40:00 21:30:00 Lizett ZIEGLER 350.1.13.10 ity [facility] 4.2.7.2.686 [facility] [id number] [address] 2021-12-10 2021-12-10 Orders Doctor LEROY 1.2.840.114 [id number] Univers 00:00:00 00:00:00 Only Unassigned, GENE 350.1.13.10 ity of Ferdinand [facility] 4.2.7.2.686 Jose as [id number] [address] 2021-12-02 2021-12-02 Outpatient R AKINSIPE, [facility] [id number] Univers 11:00:00 11:28:34 LIAN itshanel o f [facility] 2021-12-02 2021-12-02 Routine Akinsipe, [facility] 1.2.795.865 [id number] Univers 11:00:00 11:28:34 Lian C BOILERMAKER APPRENTICE 350.1.13.10 ity of Visit [facility] 4.2.7.2.686 Jose as MATERNAL [id number] [facility] & [address] 2021-11-04 2021-11-04 Outpatient R AKINSIPE, [facility] [id number] Univers 12:45:00 13:34:38 LIAN lam o [facility] 2021-11-04 2021-11-04 Routine [facility], [facility] 1.2.859.975 [id number] Univers 12:45:00 13:34:38 Lian C BOILERMAKER APPRENTICE 350.1.13.10 ity of Visit [facility] 4.2.7.2.686 Jose as MATERNAL [id number] [address] 2021-11-04 2021-11-04 Outpatient R AKINSIPE, [facility] [id number] Univers 12:45:00 12:45:00 LIAN ity o f [facility] 2021-10-29 2021-10-29 Abstract Akinsipe, [facility] 1.2.840.114 [id number] Univers 00:00:00 00:00:00 Lian C BOILERMAKER APPRENTICE 350.1.13.10 ity of REGIONAL 4.2.7.2.686 Jose as MATERNAL [id number] [facility] & CHILD [address] [place] [address] 2021-10-25 2021-10-25 Centerpuncher Lab, [facility] 1.2.840. 114 [id number] Univers 15:00:00 15:39:34 Visit Crispin Son BOILERMAKER APPRENTICE 350.1.13.10 ity of REGIONAL 4.2.7.2.686 Jose as MATERNAL [id number] Med ical & CHILD [address] [facility] 2021-10-25 2021-10-25 Outpatient Abhijeet WALTONJOSH CRISPIN [facility] 1 [id number] Univers 15:00:00 15:00:00 CRISPIN SON [facility] 2021-10-25 2021-10-25 Centerpuncher 1, [facility] Room [facility] 1.2. 840.114 [id number] Univers 14:00:00 14:45:00 Visit Joey Silva BOILERMAKER APPRENTICE 350.1.13.1 0 ity of REGIONAL 4.2.7.2.686 Jose as MATERNAL [id number] Med ical & CHILD 369 [facility] 2021-10-25 2021-10-25 Outpatient P [facility] [id number] Univers 14:00:00 14:00:00 ity of [facility] 2021-10-25 2021-10-25 Case [facility] 1.2.840.114 [id number] Univers 00:00:00 00:00:00 Management Rosalia BOILERMAKER APPRENTICE 350.1.13.10 ity of REGIONAL 4.2.7.2.686 Jose as MATERNAL [id number] Med ical & CHILD [address] [place] [address] 2021-10-24 2021-10-24 Outpatient Abhijeet [facility] [id number] Univers 15:15:00 16:00:28 [facility] 2021-10-24 2021-10-24 Routine Risk, Rzx-Jekkh-Hd/High [facility] 1. 2.840.114 [id number] Univers 15:15:00 16:00:28 Johnny Warner BOILERMAKER APPRENTICE 350.1.13.10 ity of Visit REGIONAL 4.2.7.2.686 Jose as MATERNAL [id number] Med ical & CHILD [address] [facility] [place] [place] 2021-10-17 2021-10-17 Telephone [facility] 1.2.840.114 [id number] Univers 00:00:00 00:00:00 Lian C BOILERMAKER APPRENTICE 350.1.13.10 ity of REGIONAL 4.2.7.2.686 Jose as MATERNAL [id number] [facility] CH[facility] [address] [place] [address] 2021-10-07 2021-10-07 Outpatient R AKINSIFABY, [facility] [id number] Univers 13:00:00 13:29:01 LIAN ity o f [facility] 2021-10-07 2021-10-07 Routine [facility], [facility] 1.2.722.409 [id number] Univers 13:00:00 13:15:00 Lian C BOILERMAKER APPRENTICE 350.1.13.10 ity of Visit REGIONAL 4.2.7.2.686 Jose as MATERNAL [id number] [facility] & [address] 2021-10-07 2021-10-07 Outpatient R AKINSIFABY, [facility] [id number] Univers 13:00:00 13:00:00 ILAN lam o [facility] 2021-09-30 2021-09-30 Outpatient R JOSESITO CARRILLO [facility] [id number] Univers 10:00:00 10:51:05 JOSESITO CARRILLO [facility] 2021-09-30 2021-09-30 Routine Faculty, [facility] 1.2 .840.114 [id number] Univers 10:00:00 10:51:05 Josesito Carrillo BOILERMAKER APPRENTICE 350.1.13.10 ity of Visit REGIONAL 4.2.7.2.686 Jose as MATERNAL [id number] [facility] CHILD [address] [place] [address] 2021-09-30 2021-09-30 Outpatient R JOSESITO CARRILLO [facility] [id number] Univers 10:00:00 10:51:05 JOSESITO CARRILLO shanel [facility] 2021-09-30 2021-09-30 Outpatient R [facility] [id number] Univers 10:00:00 10:00:[facility] 2021-09-30 2021-09-30 Outpatient R [facility] [id number] Univers 10:00:00 10:00:00 ity of [facility] 2021-09-30 2021-09-30 Outpatient R [facility] [id number] Univers 10:00:00 10:00:00 ity of [facility] 2021-09-24 2021-09-24 Telephone [facility] 1.2.840.114 [id number] Univers 00:00:00 00:00:00 Lian C BOILERMAKER APPRENTICE 350.1.13.10 ity of [facility] 4.2.7.2.686 Jose as MATERNAL [id number] [facility] CHILD [address] [place] [address] 2021-09-18 2021-09-18 Telephone [facility] 1.2.840.114 [id number] Univers 00:00:00 00:00:00 Lian C BOILERMAKER APPRENTICE 350.1.13.10 ity of [facility] 4.2.7.2.686 Jose as MATERNAL [id number] [facility] CHILD [address] [place] [address] 2021-09-10 2021-09-10 Orders Doctor LEROY 1.2.840.114 [id number] Univers 00:00:00 00:00:00 Only Unassigned, GENE 350.1.13.10 ity of Ferdinand [facility] 4.2.7.2.686 Jose as [id number] [facility] [address] 2021-09-09 2021-09-09 Telephone [facility] 1.2.840.114 [id number] Univers 00:00:00 00:00:00 Lian C BOILERMAKER APPRENTICE 350.1.13.10 ity of [facility] 4.2.7.2.686 Jose as MATERNAL [id number] [facility] & CHILD [address] [place] [address] 2021-09-06 2021-09-06 LEROY Laguna 1.2.840.114 [id number] Univers 00:00:00 00:00:00 Triage Vicki MILLS 350.1.13.10 ity of [facility] 4.2.7.2.686 Jose as [phone] [facility] [address] 2021-09-06 2021-09-06 Nurse Lester HARPER 1.2.840.114 [id number] Univers 00:00:00 00:00:00 Triage GENE Breen 350.1.13.10 ity of [facility] 4.2.7.2.686 Jose as [phone] [address] 2021-09-05 2021-09-05 [facility]phone [facility] 1.2.840.114 [id number] Univers 00:00:00 00:00:00 Lian Brizuela BOILERMAKER APPRENTICE 350.1.13.10 ity of [facility] 4.2.7.2.686 Jose as MATERNAL [phone] [facility] & [address] 2021-09-02 2021-09-02 Outpatient R AKINSIPE, [facility] [id number] Univers 15:00:00 16:51:33 LIAN ity o [facility] 2021-09-02 2021-09-02 Outpatient R AKINSIPE, [facility] [id number] Univers 15:00:00 16:51:33 LIAN ity o [facility] 2021-09-02 2021-09-02 Initial Akinsi, [facility] [id number] Univers 15:00:00 16:51:33 Lian Brizuela BOILERMAKER APPRENTICE 350.1.13.10 ity of [facility] 4.2.7.2.686 Jose as MATERNAL [phone] [address] 2021-09-02 2021-09-02 Outpatient R AKINSIPE, [facility] [id number] Univers 15:00:00 16:51:33 LIAN ity o [facility] 2021-09-02 2021-09-02 Outpatient R AKINSIPE, [facility] [id number] Univers 15:00:00 15:00:00 LIAN ity o [facility] 2021-09-02 2021-09-02 Outpatient R AKINSIPE, [facility] [id number] Univers 15:00:00 15:00:00 LIAN ity o [facility] 2021-09-02 2021-09-02 Anastacia HARPER 1.2.840.114 [id number] Univers 00:00:00 00:00:00 Only Unassigned, GENE 350.1.13.10 ity of [facility] 4.2.7.2.686 Jose as [phone] [place] [address] Branch Results Test Description Test Time Test Comments Results Result Comments Source CBC with Differential 2022-04-26 10:36:30 Test Item Value Reference Range Interpretation Comme nts WBC (test code = 6690-2) 10.67 See_Comment [A utomated message] The system which ge nerated this result transmit jamel reference range: 4.30 - 1 1.10 10*3/?L. The reference r helene was not used to interpr et this result as normal/abnor mal. RBC (test code = 789-8) 3.72 See_Comment L [Au tomated message] The system which ge nerated this result transmit [...] g/dL 31.6-35.1 L RDW-SD (test code = 19370-6) 49.8 fL 39.0-49.9 RDW-CV (test code = 788-0) 18.2 % 12.0-15.5 H PLT (test code = 777-3) 200 See_Comment [Au tomated message] The system which POSLavu nerated this result transmit jamel reference range: 166 - 35 8 10*3/?L. The reference range was not used to interpret th is result as normal/abnormal . MPV (test code = 03961-6) 11.0 fL 9.5-12.9 NRBC/100 WBC (test code = 0.0 See_Comment [ Automated message] The 7782831622) system which POSLavu nerated this result transmit jamel reference range: 0.0 - 10 .0 /100 WBCs. The reference r helene was not used to interpr et this result as normal/abnor mal. NRBC x10^3 (test code = See_Comment [Au tomated message] The 5533554285) system which POSLavu nerated this result transmit jamel reference range: 10*3/?L. The reference range was not u sed to interpret this result as normal/abnormal . GRAN MAT (NEUT) % (test code 81.9 % = 770-8) IMM GRAN % (test code = 0.60 % 8591329452) LYMPH % (test code = 736-9) 11.7 % MONO % (test code = 5905-5) 4.8 % EOS % (test code = 713-8) 0.9 % BASO % (test code = 706-2) 0.1 % GRAN MAT x10^3(ANC) (test 8.74 10*3/uL 1.88-7.09 H code = 6920616261) IMM GRAN x10^3 (test code = 0.06 10*3/uL 0.00-0.06 6717540960) LYMPH x10^3 (test code = 1.25 10*3/uL 1.32-3.29 L 731-0) MONO x10^3 (test code = 0.51 10*3/uL 0.33-0.92 742-7) EOS x10^3 (test code = 0.10 10*3/uL 0.03-0.39 711-2) BASO x10^3 (test code = 0.01-0.07 704-7) Lab Interpretation (test Abnormal code = 58153-0) [facility] with Zaivajbnadsq0818-77-38 10:36:30 Test Item Value Reference Range Interpretation Comments WBC (test code = 10.67 See_Comment [Automated 5490-2) message] The sy stem which generated this result transmitted reference range : 4.30 - 11.10 10*3/?L. The reference range was not used to interpret this result as normal/abnormal . RBC (test code = 3.72 See_Comment L [Automated 349-8) message] The sy stem which generated this [...] RDW-SD (test code = 49.8 fL 39.0-49.9 07003-5) RDW-CV (test code = 18.2 % 12.0-15.5 H 788-0) PLT (test code = 200 See_Comment [Automated 777-3) message] The sy stem which generated this result transmitted reference range : 166 - 358 10*3/ ?L. The reference r helene was not used to interpret this result as normal/abnormal . MPV (test code = 11.0 fL 9.5-12.9 32722-3) NRBC/100 WBC (test 0.0 See_Comment [Automat ed code = 5432936512) message] The system which generated this result transmitted reference range : 0.0 - 10.0 /100 WBCs. The refer ence range was not u sed to interpret th is result as normal/abnormal . NRBC x10^3 (test code See_Comment [Auto mated = 6868503135) message] The s ystem which generated this result transmitted reference range : 10*3/?L. The reference range was not used to interpret this result as normal/abnormal . GRAN MAT (NEUT) % 81.9 % (test code = 770-8) IMM GRAN % (test code 0.60 % = 9609274847) LYMPH % (test code = 11.7 % 736-9) MONO % (test code = 4.8 % 5905-5) EOS % (test code = 0.9 % 713-8) BASO % (test code = 0.1 % 706-2) GRAN MAT x10^3(ANC) 8.74 10*3/uL 1.88-7.09 H (test code = 3026034045) IMM GRAN x10^3 (test 0.06 10*3/uL 0.00-0.06 code = 3016909458) LYMPH x10^3 (test code 1.25 10*3/uL 1.32-3.29 L = 731-0) MONO x10^3 (test code 0.51 10*3/uL 0.33-0.92 = 742-7) EOS x10^3 (test code = 0.10 10*3/uL 0.03-0.39 711-2) BASO x10^3 (test code 0.01-0.07 = 704-7) Lab Interpretation Abnormal (test code = 24494-5) [facility] (D) IMMUNE [id number] 12:57:08 Test Item Value Reference Range Interpretation Comments RHIG CANDIDATE? No- see comment Patient i s not a (test code = candidate for R hIg- 5055) Patient is Rh Positive.Perfor med at [facility] Laboratory Services [facility] Blood [address] [place] [address] Free: [phone] A No. [id number] [facility] (D) IMMUNE [id number] 12:57:08 Test Item Value Reference Range Interpretation Comments RHIG CANDIDATE? No- see comment Patient i s not a (test code = candidate for R hIg- 5055) Patient is Rh Positive.Perfor med at [facility] Laboratory Services [facility] Blood [address] [place] [address] Free: [phone] A No. [id number] [facility] [id number] 10:01:20 Test Item Value Reference Range Interpretation Comments VENOUS BASE EXCESS, -5.6 mEq/L CORD (test code = 7736413408) VENOUS PH, CORD (test 7.36 7.25-7.45 code = 5196826272) VENOUS PC02, CORD 34 See_Comment [Automate d message] The (test code = system which ge nerated 9354619555) this result tra nsmitted reference range : 27 - 49 mmHg. The refer ence range was not used to interpret this result as normal/abnormal . VENOUS PO2, CORD (test 31 See_Comment [Aut omated message] The code = 7941841617) system [facility] generated this result tra nsmitted reference range : 17 - 41 mmHg. The refer ence range was not used to interpret this result as normal/abnormal . VENOUS BICARBONATE, 19 See_Comment [Automa jamel message] The CORD (test code = system [facility] generated 7863607427) this result tra nsmitted reference range : 12 - 29 mEq/L. The refe rence range was not used to interpret this result as normal/abnormal . [facility] [id number] 10:01:20 Test Item Value Reference Range Interpretation Comments VENOUS BASE EXCESS, -5.6 mEq/L CORD (test code = 9501449790) VENOUS PH, CORD (test 7.36 7.25-7.45 code = 6592047754) VENOUS PC02, CORD 34 See_Comment [Automate d message] The (test code = system [facility] ge nerated 5130330713) this result tra nsmitted reference range : 27 - 49 mmHg. The refer ence range was not used to interpret this result as normal/abnormal . VENOUS PO2, CORD (test 31 See_Comment [Aut omated message] The code = 5355603313) system [facility] generated this result tra nsmitted reference range : 17 - 41 mmHg. The refer ence range was not used to interpret this result as normal/abnormal . VENOUS BICARBONATE, 19 See_Comment [Automa jamel message] The CORD (test code = system [facility] generated 4789139798) this result tra nsmitted reference range : 12 - 29 mEq/L. The refe rence range was not used to interpret this result as normal/abnormal . [facility] [id number] 09:58:24 Test Item Value Reference Range Interpretation Comments BASE EXCESS, CORD -5.4 mEq/L (test code = 6288826551) AC PH, CORD (BEAKER) 7.33 7.18-7.38 (test code = 4709744204) PC02, CORD (test code 40 See_Comment [Auto mated message] The = 3842502703) system which g enerated this result transmit jamel reference range : 32 - 66 mmHg. The refer ence range was not used to interpret this result as normal/abnormal . PO2, CORD (test code 20 See_Comment [Autom ated message] The = 3801859095) system which g enerated this result transmit jamel reference range : 10 - 30 mmHg. The refer ence range was not used to interpret this result as normal/abnormal . BICARBONATE, CORD 20 See_Comment [Automate d message] The (test code = system which ge nerated this 8741623372) result transmit jamel reference range : 17 - 27 mEq/L. The refe rence range was not used to interpret this result as normal/abnormal . [facility] [id number] 09:58:24 Test Item Value Reference Range Interpretation Comments BASE EXCESS, CORD -5.4 mEq/L (test code = 2960145873) AC PH, CORD (BEAKER) 7.33 7.18-7.38 (test code = 6825925538) PC02, CORD (test code 40 See_Comment [Auto mated message] The = 8973888279) system which g enerated this result transmit jamel reference range : 32 - 66 mmHg. The refer ence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
[2022-05-10] MEDS ORDERED: Ringers Lactate 1,000 ML IV ONE (05:02)
[2022-05-10 05:03] LABS: Hematocrit 35.7 % (36.0-45.0); Lymphocytes % 26.7 % (15.3-44.8); MCV 73.1 fL (80-100); MPV 7.5 fL (7.6-11.3); RBC Red Blood Cell Count 4.89 M/uL (3.86-4.86)
[2022-05-10 05:09] LABS: Urine Blood 1+ (Negative); Urine Glucose Negative (Negative); Urine Protein 1+ (Negative); Urine Specific Gravity >=1.030 (1.005-1.030)
[2022-05-10 05:16] LABS: Specific Gravity > 1.030 (1.005-1.030); Urine Bacteria <20 /HPF (<20); Urine Bilirubin NEGATIVE (Negative); Urine Blood Trace (Negative); Urine Clarity Clear (Clear); Urine Color Light-Yellow (Yellow); Urine Glucose NEGATIVE (Negative); Urine Mucus Slight /HPF (None Seen); Urine Protein TRACE (Negative); Urine RBC 21-50 /HPF (None Seen); Urine Urobilinogen Normal (Normal)
[2022-05-10 05:21] LABS: Albumin 3.7 g/dL (3.4-5.0); Bilirubin Total 0.3 mg/dL (0.2-1.0); Potassium 3.8 mEq/L (3.5-5.1); Protein, Total 7.9 g/dL (6.4-8.2)
[2022-05-10] MEDS ORDERED: METOCLOPRAMIDE 10 MG/2mL INJ ONE (05:25)
[2022-05-10] MEDS ORDERED: DIPHENHYDRAMINE 50 MG/ML VIAL ONE (05:25)
[2022-05-10] MEDS ORDERED: KETOROLAC 30 MG/ML INJ ONE (05:26)
--- NOTE | 2022-05-10 05:52 | EDPHYS ---
Physician Documentation [facility] Name: Tanika Lawrence Age: 21 yrs Sex: Female : 2000 Arrival Date: 05/10/2022 Time: 04:40 Bed 5 Private MD: ED Physician Paddy Pate HPI: 05/10 04:55 This 21 yrs old Female presents to ER via Ambulatory with complaints of Post ms3 Problem. 04:57 21-year-old female with past medical history of hypertension, preeclampsia, asthma ms3 presents 13 days status post for headache. Patient states she has had headache for 13 days. Patient denies alleviating or inciting factors. Patient rates her discomfort a 6/10 and throbbing.. Historical: - Allergies: 04:53 No Known Allergies; kl - Home Meds: 04:50 Albuterol Inhl [Active]; kl - PMHx: 04:50 autoimmune disease; Asthma; pre eclampsia; HTN; kl - PSHx: 04:50 section; kl - Immunization history:: Adult Immunizations up to date. - Social history:: Smoking status: . ROS: 04:57 Constitutional: Negative for fever, and chills. Neck: Negative for injury, pain, and ms3 swelling, Cardiovascular: Negative for chest pain, and palpitations. Respiratory: Negative for shortness of breath, cough, wheezing, and pleuritic chest pain, Abdomen/GI: Negative for abdominal pain, nausea, vomiting, diarrhea, and constipation, MS/Extremity: Negative for injury and deformity, Skin: Negative for injury, rash, and discoloration. 04:57 Neuro: Positive for headache. 04:57 All other systems are negative. Exam: 04:57 Constitutional: This is a well developed, well nourished patient who is awake, alert, ms3 and in no acute distress. Head/Face: Normocephalic, atraumatic. Chest/axilla: Normal chest wall appearance and motion. Nontender with no deformity. Cardiovascular: Regular rate and rhythm with a normal S1 and S2. No gallops, murmurs, or rubs. Normal PMI, no JVD. No pulse deficits. Respiratory: Lungs have equal breath sounds bilaterally, clear to auscultation and percussion. No rales, rhonchi or wheezes noted. No increased work of breathing, no retractions or nasal flaring. Abdomen/GI: Soft, non-tender, with normal bowel sounds. No distension or tympany. No guarding or rebound. No evidence of tenderness throughout. Skin: Warm, dry with normal turgor. Normal color with no rashes, no lesions, and no evidence of cellulitis. MS/ Extremity: Pulses equal, no cyanosis. Neurovascular intact. Full, normal range of motion. Neuro: Awake and alert, GCS 15, oriented to person, place, time, and situation. Cranial nerves II-XII grossly intact. Motor strength 5/5 in all extremities. Sensory grossly intact. Cerebellar exam normal. Normal gait. Vital Signs: 04:47 BP 147 / 111; Pulse 118; Resp 18; Temp 98.1; Pulse Ox 99% on R/A; Weight 57 kg (M); kl Height 5 ft. 2 in. ; Pain 6/10; 05:37 BP 128 / 99; Pulse 73; Resp 16; Pulse Ox 100% on R/A; jb4 04:47 Body Mass Index 22.98 (57.00 kg, 157.48 cm) kl 04:47 Pain Scale: Adult kl MDM: 04:49 Patient medically screened. ms3 04:57 Differential diagnosis: migraine, tension headache, Eclampsia. ms3 05:00 ED course: Discussed CT Head with patient and she states she recently had CT head and ms3 does not wish to have another CT Head performed. . 05/10 04:49 Order name: CBC with Diff; Complete Time: 05:08 ms3 05/10 04:49 Order name: CMP; Complete Time: 05:22 ms3 05/10 04:51 Order name: Urinalysis w/ reflexes; Complete Time: 05:22 ms3 05/10 05:10 Order name: Urine Dipstick-Ancillary; Complete Time: 05:22 EDMS Administered Medications: 05:07 Drug: Lactated Ringers Solution IV 1000 ml Route: IV; Rate: bolus; Site: right jb4 antecubital; 05:14 Follow up: IV SiteChange: left forearm; IV SiteChange Reason: Infiltration jb4 05:24 Drug: metoCLOPramide IVP 10 mg Route: IVP; Site: left forearm; pf1 05:24 Drug: diphenhydrAMINE IVP 25 mg Route: IVP; Site: left forearm; pf1 05:25 Drug: Ketorolac IVP 10 mg 10 mg Route: IVP; Site: left forearm; pf1 Disposition Summary: 05/10/22 05:51 Discharge Ordered Location: Home ms3 Condition: Stable ms3 Diagnosis - Headache ms3 - Hypertension ms3 Followup: ms3 - With: Private Physician - When: 1 - 2 days - Reason: Recheck today's complaints Discharge Instructions: - Discharge Summary Sheet ms3 - General Headache Without Cause ms3 - Preeclampsia and Eclampsia ms3 Forms: - Medication Reconciliation Form ms3 - Thank You Letter ms3 - Antibiotic Education ms3 - Prescription Opioid Use ms3 Signatures: Dispatcher [employer] EDMS Cornelia Hyman RN RN Red Mims RN RN jb4 Paddy Pate DO DO ms3 Kaylee winston RN RN pf1 Corrections: (The following items were deleted from the chart) 05:04 04:51 Head Brain Wo Cont+CT.RAD.BRZ ordered. EDMS EDMS
--- NOTE | 2022-05-10 05:52 | ER ---
Nurse's Notes [facility] Name: Tnaika Lawrence Age: 21 yrs Sex: Female : 2000 Arrival Date: 05/10/2022 Time: 04:40 Bed 5 Private MD: Diagnosis: Headache;Hypertension Presentation: 05/10 04:47 Method Of Arrival: Ambulatory kl 04:47 Acuity: SILVIA 3 kl 04:47 Chief complaint: Patient states: right neck pain radiating of right side of head x 13 kl days reports occurred after epidural pt is 13 days post . Coronavirus screen: Vaccine status: Patient reports being unvaccinated. Ebola Screen: Patient negative for fever greater than or equal to 101.5 degrees Fahrenheit, and additional compatible Ebola Virus Disease symptoms. Initial Sepsis Screen: Does the patient meet any 2 criteria? No. Patient's initial sepsis screen is negative. Does the patient have a suspected source of infection? No. Patient's initial sepsis screen is negative. Risk Assessment: Do you want to hurt yourself or someone else? Patient reports no desire to harm self or others. Triage Assessment: 04:51 General: Appears uncomfortable, well groomed, well developed, Behavior is calm, kl cooperative. Pain: Complains of pain in right neck Pain radiates to right christian Pain currently is 6 out of 10 on a pain scale. at worst was 10 out of 10 on a pain scale. Neuro: No deficits noted. Cardiovascular: No deficits noted. Respiratory: No deficits noted. GI: No deficits noted. No signs and/or symptoms were reported involving the gastrointestinal system. : No deficits noted. No signs and/or symptoms were reported regarding the genitourinary system. Derm: No deficits noted. No signs and/or symptoms reported regarding the dermatologic system. Historical: - Allergies: 04:53 No Known Allergies; kl - Home Meds: 04:50 Albuterol Inhl [Active]; kl - PMHx: 04:50 autoimmune disease; Asthma; pre eclampsia; HTN; kl - PSHx: 04:50 section; kl - Immunization history:: Adult Immunizations up to date. - Social history:: Smoking status: . Screenin:45 [facility] ED Fall Risk Assessment (Adult) History of falling in the last 3 months, pf1 including since admission No falls in past 3 months (0 pts) Confusion or Disorientation No (0 pts) Intoxicated or Sedated No (0 pts) Impaired Gait No (0 pts) Mobility Assist Device Used No (0 pt) Altered Elimination No (0 pt) Score/Fall Risk Level 0 - 2 = Low Risk Oriented to surroundings, Maintained a safe environment, Educated pt \T\ family on fall prevention, incl call for assistance when getting out of bed, Assessed \T\ reinforced patient's understanding of fall precautions, Provided non-skid footwear, Hourly rounding (assess needs \T\ fall precautionary measures) done, Used ambulatory aids as needed (educated on \T\ assisted with), Used gait belt as appropriate. 04:45 Abuse screen: Denies threats or abuse. Nutritional screening: No deficits noted. pf1 Tuberculosis screening: No symptoms or risk factors identified. Assessment: 04:43 General: Appears in no apparent distress. uncomfortable, well groomed, well developed, pf1 Behavior is calm, cooperative, appropriate for age, quiet. 04:43 Pain: Complains of pain in Patient C/O intermittent right side temporal pain of 6 that pf1 radiates to right side neck,onset intermittent for 13 days, worse this AM. Patient stated post for 13 days Pain currently is 6 out of 10 on a pain scale. Neuro: Level of Consciousness is awake, alert, obeys commands, Oriented to person, place, time, situation, Reports headache in right. Cardiovascular: No deficits noted. Capillary refill < 3 seconds Patient's skin is warm and dry. Respiratory: No deficits noted. Airway is patent Respiratory effort is even, unlabored, Respiratory pattern is regular, symmetrical, Breath sounds are clear bilaterally. GI: No deficits noted. No signs and/or symptoms were reported involving the gastrointestinal system. : No deficits noted. No signs and/or symptoms were reported regarding the genitourinary system. EENT: No deficits noted. No signs and/or symptoms were reported regarding the EENT system. Derm: No deficits noted. No signs and/or symptoms reported regarding the dermatologic system. 05:37 Reassessment: Patient appears in no apparent distress at this time. Patient and/or jb4 family updated on plan of care and expected duration. Pain level reassessed. Patient is alert, oriented x 3, equal unlabored respirations, skin warm/dry/pink. Vital Signs: 04:47 BP 147 / 111; Pulse 118; Resp 18; Temp 98.1; Pulse Ox 99% on R/A; Weight 57 kg (M); kl Height 5 ft. 2 in. ; Pain 6/10; 05:37 BP 128 / 99; Pulse 73; Resp 16; Pulse Ox 100% on R/A; jb4 04:47 Body Mass Index 22.98 (57.00 kg, 157.48 cm) kl 04:47 Pain Scale: Adult ED Course: 04:40 Patient arrived in ED. jj6 04:41 Paddy Pate DO is Attending Physician. ms3 04:45 No provider procedures requiring assistance completed. Inserted saline lock: 22 gauge pf1 in right antecubital area, using aseptic technique. Blood collected. 04:50 Triage completed. kl 04:50 Patient has correct armband on for positive identification. Bed in low position. Call pf1 light in reach. 04:54 Kaylee winston RN is Primary Nurse. pf1 05:14 IV discontinued, intact, bleeding controlled, No redness/swelling at site. Pressure jb4 dressing applied. Inserted saline lock: 22 gauge in left forearm, using aseptic technique. 05:15 Urinalysis w/ reflexes Sent. pf1 Administered Medications: 05:07 Drug: Lactated Ringers Solution IV 1000 ml Route: IV; Rate: bolus; Site: right jb4 antecubital; 05:14 Follow up: IV SiteChange: left forearm; IV SiteChange Reason: Infiltration jb4 05:24 Drug: metoCLOPramide IVP 10 mg Route: IVP; Site: left forearm; pf1 05:24 Drug: diphenhydrAMINE IVP 25 mg Route: IVP; Site: left forearm; pf1 05:25 Drug: Ketorolac IVP 10 mg 10 mg Route: IVP; Site: left forearm; pf1 Outcome: 05:51 Discharge ordered by . ms3 Signatures: Cornelia Hyman RN RN kl Bryson, James, RN RN jb4 Paddy Pate DO DO ms3 Katey Smith jj6 Kaylee winston RN RN pf1 Corrections: (The following items were deleted from the chart) 05:12 04:47 Chief complaint: Patient states: right neck pain radiating of right side of head pf1 x 13 days reports occurred after epidural pt is 13 days post kl 05:13 04:43 Pain: Complains of pain in Patient C/O intermittent right side temporal pain of pf1 6,onset yesterday, worse this AM Pain currently is 6 out of 10 on a pain scale. pf1
== END 2022-05-10 06:01 | disposition home or self-care (01) ==
LOC: ER 04:38
DX: R51.9 Headache, unspecified (principal); I10 Essential (primary) hypertension; J45.909 Unspecified asthma, uncomplicated
CPT/HCPCS: 85025; 81001; 36415; 81003; 80053; 96375; 96374; 99283; J2765; J1200; J7120

== ENCOUNTER 2022-07-11 21:52 | Emergency (ER) | payer OTHER ==
--- OUTSIDE RECORDS SUMMARY | 2022-07-11 22:03 | XMS REPORT | Continuity of Care Document ---
:2000 Author Organization [facility] t Address [address] [facility] [place] [address] Care Team Providers Name Role Phone SHEELA JALLOH Primary Care Physician Unavailable SHEELA JALLOH Attending Clinician Unavailable JADE GALLOWAY Attending Clinician Unavailable Jade Galloway DO Attending Clinician Sheela White Attending Clinician LIAN SIMMS Attending Clinician Unavailable Lian Mooney Attending Clinician [phone] Doctor Unassigned, [place] Attending Clinician Unavailable Pcp-Lab Attending Clinician Unavailable Massimo AMBROSE, Analia Harry Attending Clinician ANALIA WILLS Attending Clinician Unavailable Carolina AMBROSE, Thomas Attending Clinician 2, [facility] Attending Clinician Unavailable [facility], [facility] Attending Clinician Unavailable Chip Archuleta DO Attending Clinician LEROY LORENZANA Attending Clinician Unavailable Emilee Villarreal MD Attending Clinician [phone] Daquan Bowman MD Attending Clinician Fernandez AMBROSE, Ronen White Attending Clinician Malcolm STALLWORTH, Jose Cruz Camacho Attending Clinician Unavailable Provider, Estradachvidya Temp Attending Clinician Unavailable MADHURI OROZCO Attending Clinician Unavailable Cristofer AMBROSE, Madhuri Rosenbaum Attending Clinician LIZETT WEI Attending Clinician Unavailable Lizett Wei MD Attending Clinician Astrid Barnett CNM Attending Clinician ASTRID BARNETT Attending Clinician Unavailable Ultrasound, Ang-m Attending Clinician Unavailable Josesito Carrillo MD Attending Clinician JOSESITO CARRILLO Attending Clinician Unavailable JOSESITO CARRILLO Attending Clinician Unavailable Lab, [facility] Attending Clinician Unavailable Crispin Campbell Attending Clinician CRISPIN SON Attending Clinician Unavailable 1, Pas-m Us Room Attending Clinician Unavailable Ricardo AMBROSE, Joey Simmons Attending Clinician Rosalia Purdy APN Attending Clinician JOHNNY WARNER Attending Clinician Unavailable Risk, Shy-Opzgn-Ay/High Attending Clinician Unavailable Johnny Joshi Attending Clinician Faculty, Marcos Jeronimo [facility] Attending Clinician Unavailable Vicki Gardner RN Attending Clinician Unavailable Martha Frye RN Attending Clinician Unavailable LIZETT WEI Admitting Clinician Unavailable Chip Archuleta DO Admitting Clinician MADHURI OROZCO Admitting Clinician Unavailable Madhuri Orozco MD Admitting Clinician Lizett Wei MD Admitting Clinician Payers Payer Name Policy Type Policy Number Effective Date Expiration Date S chucho [facility] [id number] 2021 00:00:00 MEDICAID PENDING PENDING 2021 00:00:00 Problems Condition Condition Condition Status Onset Resolution Last Treating Co mments Source Name Details Category Date Date Treatment Clinician Date Well woman Well woman Disease Active U nivers exam exam 4-14 ity of 00:00: [place] 00 [facility] Routine Routine Disease Active Univers 3-24 it y of [place] [facility] 38 weeks 38 weeks Disease Active Unive rs gestation gestation 3-01 ity of of of 00:00: [place] 00 [facility] Disease Active Univers growth growth 3-01 ity of restrictio restrictio 00:[place] 00 Medical antepartum antepartum Br anch Elevated Elevated Disease Active Unive rs blood blood 3-01 ity of pressure pressure 00:00: [place] affecting affecting 00 [facility] Bran ch in third in third trimester, trimester, antepartum antepartum Positive Positive Disease Active Unive rs GBS test GBS test 2-17 ity of 00:00: [place] 00 [facility] Abnormal Abnormal Disease Active 2021-02 Unive rs maternal maternal 2-11 ity of glucose glucose 00:00: [place] tolerance, tolerance, 00 Me dical antepartum antepartum Br anch Anemia of Anemia of Disease Active 2021-02 Uni vers mother in mother in 2-11 ity of , , 00:00[place] antepartum antepartum 00 Me dical Branch Seizure Seizure Disease Active Univers disorder disorder 8-05 ity of during during 00:00: [place] 00 [facility] in second in second Bran ch trimester trimester GBS (group GBS (group Disease Active Overview : Univers B B 7-14 Formattin ity of streptococ streptococ 00:00: g of this [place] cus) UTI cus) UTI 00 note Medica l complicati complicati might be Branch ng ng different from the original. 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 7-11 Formattin ity of 00:00: g of this note Medical might be Branch different from [...] ity o f 00:00: g of this note Medical might be Branch different from [...] DA Active U 2015-02 [facility] Allergie 04-22 [facility] 00:00: d 00 Medical [place] NO KNOWN Drug Active [facility] ALLERGIE Class ity of S [facility] Social History Social Habit Start Date Stop Date Quantity Comments Source ASSERTION 2021-08-09 University 00:00:00 [facility] History of Cigarette Smoker Universi ty of tobacco use [facility] Exposure to 2022-07-01 2022-07-11 Not sure [facility] SARS-CoV-2 00:00:00 16:49:00 [facility] (event) Branch Alcohol intake 2022-07-11 2022-07-11 Lifetime University 00:00:00 00:00:00 non-drinker [facility] (finding) Branch Tobacco use and 2021-09-02 2021-09-02 Smokeless tobacco Un iversity of exposure 00:00:00 00:00:00 non-user [facility] Sex Assigned At [birth year] Universit y of 00:00:00 00:00:00 [facility] Smoking Status Start Date Stop Date Source Ex-smoker 2021-09-02 00:00:00 2021-09-02 00:00:00 Universi ty of [facility] Medications Ordered Filled Start Stop Current Ordering Indication Dosage Frequency Signature Comments Components Source Medication Medication Date Date Medication? Clinician (SIG) Name Name HYDROcodone 2022- No 1{tbl} 1 tablet, Univers -acetaminop 07-11- Oral, ity of hen (NORCO 22:00: 21:54 ONCE, 1 Jose as 5) 5-325 mg 00 :00 dose, On Medi vipin tablet 1 Fri Branch tablet 07/11/22 at 1700, LUCITA amoxicillin 2022-0 2022- Yes [id number] 875mg Take 1 Univers 875 mg 07-11 tablet by ity of tablet 00:00: 04:59 mouth in [place] 00 :00 the Medical morning Branch and 1 tablet in the evening. Do all this for 7 days. ergocalcife 2022-0 Yes [id number] Take 1 Univers rol, 4-20 capsule by ity of vitamin d2, 00:00: mouth [place] 1,250 mcg 00 weekly. Medical (50,000 Branch unit) capsule ergocalcife 2022-0 Yes [id number] Take 1 Univers rol, 4-20 capsule by ity of vitamin d2, 00:00: mouth [place] 1,250 mcg 00 weekly. Medical (50,000 Branch unit) capsule ergocalcife 2022-0 Yes [id number] Take 1 Univers rol, 4-20 capsule by ity of vitamin d2, 00:00: mouth [place] 1,250 mcg 00 weekly. Medical (50,000 Branch unit) capsule NIFEdipine 0 Yes [id number] 60mg Take 1 U nivers XL 60 mg 24 3-20 tablet by ity of hr tablet 00:00: mouth [place] 00 every Medical morning. Branch NIFEdipine 0 Yes [id number] 60mg Take 1 U nivers XL 60 mg 24 3-20 tablet by ity of hr tablet 00:00: mouth [place] 00 every Medical morning. Branch NIFEdipine 0 Yes [id number] 60mg Take 1 U nivers XL 60 mg 24 3-20 tablet by ity of hr tablet 00:00: mouth [place] 00 every Medical morning. Branch NIFEdipine 0 Yes [id number] 60mg Take 1 U nivers XL 60 mg 24 3-20 tablet by ity of hr tablet 00:00: mouth [place] 00 every Medical morning. Branch NIFEdipine 2022-0 Yes [id number] 60mg Take 1 U nivers XL 60 mg 24 3-20 tablet by ity of hr tablet 00:00: mouth [place] 00 every Medical morning. Branch NIFEdipine 2023-0 Yes [id number] 60mg Take 1 U nivers XL 60 mg 24 3-20 tablet by ity of hr tablet 00:00: mouth [place] 00 every Medical morning. Branch NIFEdipine 3-0 Yes [id number] 60mg Take 1 U nivers XL 60 mg 24 3-20 tablet by ity of hr tablet 00:00: mouth [place] 00 every Medical morning. Branch NIFEdipine 3-0 Yes [id number] 60mg Take 1 U nivers XL 60 mg 24 3-20 tablet by ity of hr tablet 00:00: mouth [place] 00 every Medical morning. Branch NIFEdipine 3-0 Yes [id number] 60mg Take 1 U nivers XL 60 mg 24 3-20 tablet by ity of hr tablet 00:00: mouth [place] 00 every Medical morning. Branch NIFEdipine 3-0 Yes [id number] 60mg Take 1 U nivers XL 60 mg 24 3-20 tablet by ity of hr tablet 00:00: mouth [place] 00 every Medical morning. Branch NIFEdipine 3-0 Yes [id number] 60mg Take 1 U nivers XL 60 mg 24 3-20 tablet by ity of hr tablet 00:00: mouth [place] 00 every Medical morning. Branch NIFEdipine 2022-0 Yes [id number] 60mg Take 1 U nivers XL 60 mg 24 3-20 tablet by ity of hr tablet 00:00: mouth [place] 00 every Medical morning. Branch NIFEdipine 3-0 3- No [id number] 60mg Take 1 Univers XL 60 mg 24 3-20 04-20 tablet by it y of hr tablet 00:00: 00:00 mouth [place] 00 :00 every Medical morning. Branch NIFEdipine 3-0 3- No [id number] 60mg Take 1 Univers XL 60 mg 24 3-20 04-20 tablet by it y of hr tablet 00:00: 00:00 mouth [place] 00 :00 every Medical morning. Branch NIFEdipine 3-0 3- No [id number] 60mg Take 1 Univers XL 60 mg 24 3-20 04-20 tablet by it y of hr tablet 00:00: 00:00 mouth [place] 00 :00 every Medical morning. Branch NIFEdipine 3-0 3- No 60mg Take 1 Univ ers XL 60 mg 24 3-12 03-20 tablet by it y of hr tablet 00:00: 00:00 mouth [place] 00 :00 every Medical morning. Branch NIFEdipine 2022- No 60mg Take 1 Univ ers XL 60 mg 24 12 03-20 tablet by it y of hr tablet 00:00: 00:00 mouth [place] 00 :00 every Medical morning. Branch ibuprofen Yes 600mg 600 mg, Univ ers (IBU) 3-04 Oral, Q6H, ity of tablet 600 18:00: First dose [place] mg 00 (after Medical last Branch modificati on) on 04/26/22 at 1200, Until Discontinu ed, Routine ibuprofen 2022- No 600mg 600 mg, [...] at 0900, Until Discontinu ed, Routine simethicone 2022- No 160mg 160 mg, U nivers (GAS RELIEF - 03-05 Oral, ity of (SIMETHICON 15:00: 07:02 PC+HS, [place] as E)) 00 :59 First dose Medical chewable (after Branch tablet 160 last mg modificati on) on 04/26/22 at 0900, Until Discontinu ed, Routine Yes [id number] 1{tbl} Take 1 Univers vitamin 3-04 tablet by ity of w/FA tablet 00:00: mouth in [place] 00 the Medical morning. Branch docusate Yes [id number] 200mg Take 2 U nivers 100 mg 3-04 capsules ity of capsule 00:00: by mouth [place] 00 once daily Medical as needed Branch for Constipati on. ferrous Yes [id number] 325mg Take 1 Un cheyanne sulfate 325 3-04 tablet by ity of mg (65 mg 00:00: [place] iron[place] 00 the Medical tablet morning Branch and 1 tablet in the evening. ibuprofen 2022-0 Yes [id number] 600mg Take 1 Univers 600 mg 3-04 tablet by ity of tablet 00:00: mouth [place] 00 every 6 Medical (six) Branch hours as needed (Pain). Take with food or milk. 2022-0 Yes [id number] 1{tbl} Take 1 Univers vitamin 3-04 tablet by ity of w/FA tablet 00:00: mouth in [place] 00 the Medical morning. Branch docusate 2022-0 Yes [id number] 200mg Take 2 U nivers 100 mg 3-04 capsules ity of capsule 00:00: by mouth [place] 00 once daily Medical as needed Branch for Constipati on. ferrous 2022-0 Yes [id number] 325mg Take 1 Un cheyanne sulfate 325 3-04 tablet by ity of mg (65 mg 00:00: [place] iron[place] 00 the Medical tablet morning Branch and 1 tablet in the evening. ibuprofen 2022-0 Yes [id number] 600mg Take 1 Univers 600 mg 3-04 tablet by ity of tablet 00:00: mouth [place] 00 every 6 Medical (six) Branch hours as needed (Pain). Take with food or milk. 2022-0 Yes [id number] 1{tbl} Take 1 Univers vitamin 3-04 tablet by ity of w/FA tablet 00:00: mouth in [place] 00 the Medical morning. Branch docusate 2022-0 Yes [id number] 200mg Take 2 U nivers 100 mg 3-04 capsules ity of capsule 00:00: by mouth [place] 00 once daily Medical as needed Branch for Constipati on. ferrous 2022-0 Yes [id number] 325mg Take 1 Un cheyanne sulfate 325 3-04 tablet by ity of mg (65 mg 00:00: [place] iron[place] 00 the Medical tablet morning Branch and 1 tablet in the evening. ibuprofen 2022-0 Yes [id number] 600mg Take 1 Univers 600 mg 3-04 tablet by ity of tablet 00:00: mouth [place] 00 every 6 Medical (six) Branch hours as needed (Pain). Take with food or milk. 2022-0 Yes [id number] 1{tbl} Take 1 Univers vitamin 3-04 tablet by ity of w/FA tablet 00:00: mouth in [place] 00 the Medical morning. Branch docusate 2022-0 Yes [id number] 200mg Take 2 U nivers 100 mg 3-04 capsules ity of capsule 00:00: by mouth [place] 00 once daily Medical as needed Branch for Constipati on. ferrous 2022-0 Yes [id number] 325mg Take 1 Un cheyanne sulfate 325 3-04 tablet by ity of mg (65 mg 00:00: [place] iron[place] 00 the Medical tablet morning Branch and 1 tablet in the evening. ibuprofen 2022-0 Yes [id number] 600mg Take 1 Univers 600 mg 3-04 tablet by ity of tablet 00:00: mouth [place] 00 every 6 Medical (six) Branch hours as needed (Pain). Take with food or milk. 0 Yes [id number] 1{tbl} Take 1 Univers vitamin 3-04 tablet by ity of w/FA tablet 00:00: mouth in [place] 00 the Medical morning. Branch docusate 0 Yes [id number] 200mg Take 2 U nivers 100 mg 3-04 capsules ity of capsule 00:00: by mouth [place] 00 once daily Medical as needed Branch for Constipati on. ferrous 2022-0 Yes [id number] 325mg Take 1 Un cheyanne sulfate 325 3-04 tablet by ity of mg (65 mg 00:00: [place] iron[place] 00 the Medical tablet morning Branch and 1 tablet in the evening. ibuprofen 2022-0 Yes [id number] 600mg Take 1 Univers 600 mg 3-04 tablet by ity of tablet 00:00: mouth [place] 00 every 6 Medical (six) Branch hours as needed (Pain). Take with food or milk. 2022-0 Yes [id number] 1{tbl} Take 1 Univers vitamin 3-04 tablet by ity of w/FA tablet 00:00: mouth in [place] 00 the Medical morning. Branch docusate 0 Yes [id number] 200mg Take 2 U nivers 100 mg 3-04 capsules ity of capsule 00:00: by mouth [place] 00 once daily Medical as needed Branch for Constipati on. ferrous 2022-0 Yes [id number] 325mg Take 1 Un cheyanne sulfate 325 3-04 tablet by ity of mg (65 mg 00:00: [place] iron[place] 00 the Medical tablet morning Branch and 1 tablet in the evening. ibuprofen 2022-0 Yes [id number] 600mg Take 1 Univers 600 mg 3-04 tablet by ity of tablet 00:00: mouth [place] 00 every 6 Medical (six) Branch hours as needed (Pain). Take with food or milk. 2022-0 Yes [id number] 1{tbl} Take 1 Univers vitamin 3-04 tablet by ity of w/FA tablet 00:00: mouth in [place] 00 the Medical morning. Branch docusate 2022-0 Yes [id number] 200mg Take 2 U nivers 100 mg 3-04 capsules ity of capsule 00:00: by mouth [place] 00 once daily Medical as needed Branch for Constipati on. ferrous 2022-0 Yes [id number] 325mg Take 1 Un cheyanne sulfate 325 3-04 tablet by ity of mg (65 mg 00:00: [place] iron[place] 00 the Medical tablet morning Branch and 1 tablet in the evening. ibuprofen 2022-0 Yes [id number] 600mg Take 1 Univers 600 mg 3-04 tablet by ity of tablet 00:00: mouth [place] 00 every 6 Medical (six) Branch hours as needed (Pain). Take with food or milk. 2022-0 Yes [id number] 1{tbl} Take 1 Univers vitamin 3-04 tablet by ity of w/FA tablet 00:00: mouth in [place] 00 the Medical morning. Branch docusate 2022-0 Yes [id number] 200mg Take 2 U nivers 100 mg 3-04 capsules ity of capsule 00:00: by mouth [place] 00 once daily Medical as needed Branch for Constipati on. ferrous 2022-0 Yes [id number] 325mg Take 1 Un cheyanne sulfate 325 3-04 tablet by ity of mg (65 mg 00:00: [place] iron[place] 00 the Medical tablet morning Branch and 1 tablet in the evening. ibuprofen 2022-0 Yes [id number] 600mg Take 1 Univers 600 mg 3-04 tablet by ity of tablet 00:00: mouth [place] 00 every 6 Medical (six) Branch hours as needed (Pain). Take with food or milk. docusate 2022-0 Yes [id number] 200mg Take 2 U nivers 100 mg 3-04 capsules ity of capsule 00:00: by mouth [place] 00 once daily Medical as needed Branch for Constipati on. ferrous 2022-0 Yes [id number] 325mg Take 1 Un cheyanne sulfate 325 3-04 tablet by ity of mg (65 mg 00:00: [place] iron[place] 00 the Medical tablet morning Branch and 1 tablet in the evening. ibuprofen 2022-0 Yes [id number] 600mg Take 1 Univers 600 mg 3-04 tablet by ity of tablet 00:00: mouth [place] 00 every 6 Medical (six) Branch hours as needed (Pain). Take with food or milk. docusate 2022-0 Yes [id number] 200mg Take 2 U nivers 100 mg 3-04 capsules ity of capsule 00:00: by mouth [place] 00 once daily Medical as needed Branch for Constipati on. ferrous 2022-0 Yes [id number] 325mg Take 1 Un cheyanne sulfate 325 3-04 tablet by ity of mg (65 mg 00:00: [place] iron[place] 00 the Medical tablet morning Branch and 1 tablet in the evening. ibuprofen 2022-0 Yes [id number] 600mg Take 1 Univers 600 mg 3-04 tablet by ity of tablet 00:00: mouth [place] 00 every 6 Medical (six) Branch hours as needed (Pain). Take with food or milk. docusate 2022-0 Yes [id number] 200mg Take 2 U nivers 100 mg 3-04 capsules ity of capsule 00:00: by mouth [place] 00 once daily Medical as needed Branch for Constipati on. ferrous 2022-0 Yes [id number] 325mg Take 1 Un cheyanne sulfate 325 3-04 tablet by ity of mg (65 mg 00:00: [place] iron[place] 00 the Medical tablet morning Branch and 1 tablet in the evening. ibuprofen 2022-0 Yes [id number] 600mg Take 1 Univers 600 mg 3-04 tablet by ity of tablet 00:00: mouth [place] 00 every 6 Medical (six) Branch hours as needed (Pain). Take with food or milk. docusate 2022-0 Yes [id number] 200mg Take 2 U nivers 100 mg 3-04 capsules ity of capsule 00:00: by mouth [place] 00 once daily Medical as needed Branch for Constipati on. ferrous 2022-0 Yes [id number] 325mg Take 1 Un cheyanne sulfate 325 3-04 tablet by ity of mg (65 mg 00:00: mouth [place] iron[place] 00 the Medical tablet morning Branch and 1 tablet in the evening. ibuprofen 2022-0 Yes [id number] 600mg Take 1 Univers 600 mg 3-04 tablet by ity of tablet 00:00: mouth [place] 00 every 6 Medical (six) Branch hours as needed (Pain). Take with food or milk. docusate 0 Yes [id number] 200mg Take 2 U nivers 100 mg 3-04 capsules ity of capsule 00:00: by mouth [place] 00 once daily Medical as needed Branch for Constipati on. ferrous 0 Yes [id number] 325mg Take 1 Un hceyanne sulfate 325 3-04 tablet by ity of mg (65 mg 00:00: mouth [place] iron[place] 00 the Medical tablet morning Branch and 1 tablet in the evening. ibuprofen 0 Yes [id number] 600mg Take 1 Univers 600 mg 3-04 tablet by ity of tablet 00:00: mouth [place] 00 every 6 Medical (six) Branch hours as needed (Pain). Take with food or milk. docusate 0 Yes [id number] 200mg Take 2 U nivers 100 mg 3-04 capsules ity of capsule 00:00: by mouth [place] 00 once daily Medical as needed Branch for Constipati on. ferrous 2022-0 Yes [id number] 325mg Take 1 Un cheyanne sulfate 325 3-04 tablet by ity of mg (65 mg 00:00: mouth [place] iron[place] 00 the Medical tablet morning Branch and 1 tablet in the evening. ibuprofen 0 Yes [id number] 600mg Take 1 Univers 600 mg 3-04 tablet by ity of tablet 00:00: mouth [place] 00 every 6 Medical (six) Branch hours as needed (Pain). Take with food or milk. docusate 2022-0 Yes [id number] 200mg Take 2 U nivers 100 mg 3-04 capsules ity of capsule 00:00: by mouth [place] 00 once daily Medical as needed Branch for Constipati on. ferrous 2022-0 Yes [id number] 325mg Take 1 Un cheyanne sulfate 325 3-04 tablet by ity of mg (65 mg 00:00: mouth [place] iron[place] 00 the Medical tablet morning Branch and 1 tablet in the evening. ibuprofen 0 Yes [id number] 600mg Take 1 Univers 600 mg 3-04 tablet by ity of tablet 00:00: mouth [place] 00 every 6 Medical (six) Branch hours as needed (Pain). Take with food or milk. docusate Yes [id number] 200mg Take 2 U nivers 100 mg 3-04 capsules ity of capsule 00:00: by mouth [place] 00 once daily Medical as needed Branch for Constipati on. ferrous 0 Yes [id number] 325mg Take 1 Un cheyanne sulfate 325 3-04 tablet by ity of mg (65 mg 00:00: mouth [place] iron[place] 00 the Medical tablet morning Branch and 1 tablet in the evening. ibuprofen 0 Yes [id number] 600mg Take 1 Univers 600 mg 3-04 tablet by ity of tablet 00:00: mouth [place] 00 every 6 Medical (six) Branch hours as needed (Pain). Take with food or milk. ferrous Yes [id number] 325mg Take 1 Un cheyanne sulfate 325 3-04 tablet by ity of mg (65 mg 00:00: [place] iron[place] 00 the Medical tablet morning Branch and 1 tablet in the evening. ferrous 2022-0 Yes [id number] 325mg Take 1 Un cheyanne sulfate 325 3-04 tablet by ity of mg (65 mg 00:00: [place] iron[place] 00 the Medical tablet morning Branch and 1 tablet in the evening. ferrous 2022-0 Yes [id number] 325mg Take 1 Un cheyanne sulfate 325 3-04 tablet by ity of mg (65 mg 00:00: [place] iron[place] 00 the Medical tablet morning Branch and 1 tablet in the evening. ferrous 2022-0 Yes [id number] 325mg Take 1 Un cheyanne sulfate 325 3-04 tablet by ity of mg (65 mg 00:00: [place] iron[place] 00 the Medical tablet morning Branch and 1 tablet in the evening. 2022-0 Yes [id number] 1{tbl} Take 1 Univers vitamin 3-04 tablet by ity of w/FA tablet 00:00: mouth in [place] 00 the Medical morning. Branch docusate 2023-0 Yes [id number] 200mg Take 2 U nivers 100 mg 3-04 capsules ity of capsule 00:00: by mouth [place] 00 once daily Medical as needed Branch for Constipati on. ferrous 2022-0 Yes [id number] 325mg Take 1 Un cheyanne sulfate 325 3-04 tablet by ity of mg (65 mg 00:00: [place] iron[place] 00 the Medical tablet morning Branch and 1 tablet in the evening. ibuprofen Yes [id number] 600mg Take 1 Univers 600 mg 3-04 tablet by ity of tablet 00:00: mouth [place] 00 every 6 Medical (six) Branch hours as needed (Pain). Take with food or milk. docusate 2022- No [id number] 200mg Take 2 Univers 100 mg 3-04 04-20 capsules ity of capsule 00:00: 00:00 by mouth [place] 00 :00 once daily Medical as needed Branch for Constipati on. ibuprofen 2022- No [id number] 600mg Take 1 Univers 600 mg 3-04 04-20 tablet by ity of tablet 00:00: 00:00 mouth [place] 00 :00 every 6 Medical (six) Branch hours as needed (Pain). Take with food or milk. docusate 2022- No [id number] 200mg Take 2 Univers 100 mg 3-04 04-20 capsules ity of capsule 00:00: 00:00 by mouth [place] 00 :00 once daily Medical as needed Branch for Constipati on. ibuprofen 2022- No [id number] 600mg Take 1 Univers 600 mg 3-04 04-20 tablet by ity of tablet 00:00: 00:00 mouth [place] 00 :00 every 6 Medical (six) Branch hours as needed (Pain). Take with food or milk. docusate 2022- No [id number] 200mg Take 2 Univers 100 mg 3-04 04-20 capsules ity of capsule 00:00: 00:00 by mouth [place] 00 :00 once daily Medical as needed Branch for Constipati on. ibuprofen 2022- No [id number] 600mg Take 1 Univers 600 mg 3-04 04-20 tablet by ity of tablet 00:00: 00:00 mouth [place] 00 :00 every 6 Medical (six) Branch hours as needed (Pain). Take with food or milk. 2022- No [id number] 1{tbl} Take 1 Univers vitamin 3-04 03-31 tablet by ity of w/FA tablet 00:00: 00:00 mouth in [place] 00 :00 the Medical morning. Branch 2022- No [id number] 1{tbl} Take 1 Univers vitamin 3-04 03-31 tablet by ity of w/FA tablet 00:00: 00:00 mouth in [place] 00 :00 the Medical morning. Branch 2022- No [id number] 1{tbl} Take 1 Univers vitamin 3-04 03-31 tablet by ity of w/FA tablet 00:00: 00:00 mouth in [place] 00 :00 the Medical morning. Branch HYDROcodone 2022- Yes [id number] 1{tbl} Take 1 [...] Yes 4mg 4 mg, Slow Univers (ZOFRAN 3-03 IV Push, ity of (PF)) 12:55: Q8HPRN, [place] injection 4 37 Starting Medi vipin mg on Thu Branch 04/25/22 at 0655, Until Discontinu ed, Routine, Nausea and Vomiting (N/V) bisacodyL 2023-0 Yes 10mg 10 mg, Univer s (DULCOLAX) 3-03 Rectal, ity of suppository 12:55: QDAILYPRN, [place] 10 mg 37 Starting Medical on Fri Branch 04/25/22 at 0655, Until Discontinu ed, Routine, Constipati on docusate Yes 200mg 200 mg, Unive rs (COLACE) 3-03 Oral, ity of capsule 200 12:55: QDAILYPRN, [place] mg 37 Starting Medical on Fri Branch 04/25/22 at 0655, Until Discontinu ed, Routine, Constipati on magnesium Yes 30mL 30 mL, Univer s hydroxide 3-03 Oral, ity of (MILK OF 12:55: QDAILYPRN, [...] 2022- No 2{tbl} 2 tablet, Univers -acetaminop 04-25 0305 Oral, ity of hen (NORCO 12:55: 07:02 Q6HPRN, [place] 5) 5-325 mg 37 :59 Starting Medi vipin tablet 2 on Fri Branch tablet 04/25/22 at 0655, Until 04/27/22 at 0102, Routine, Pain (scale 7-10), Alternate with Ibuprofen HYDROcodone 2022- No 1{tbl} 1 tablet, Univers -acetaminop 04-2505 Oral, ity of hen (NORCO 12:55: 07:02 Q6HPRN, [place] 5) 5-325 mg 37 :59 Starting Medi vipin tablet 1 on Fri Branch tablet 04/25/22 at 0655, Until 04/27/22 at 0102, Routine, Pain (scale 4-6), Alternate with Ibuprofen diphenhydrA 2022- No 25mg 25 mg, Uni vers MINE 04-25 03-05 Slow IV ity of (BENADRYL) 12:55: 07:02 [...] No 200mg 200 mg, Univ ers (COLACE) 04-2505 Oral, ity of capsule 200 12:55: 07:02 [...] 1000mL at 125 Univ ers ringers IV 3-03 03-05 mL/hr, ity of infusion 12:55: 07:02 1,000 [...] Routine
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
Lock Medi vipin injection out Branch Interval: 10 Minutes
Basal Rate: 0 mg/hr
F our Hour Dose Limit: 20 mg
Intr avenous, 30 mL, CONTINUOUS , Starting on Thu04/25/22 at 0445, Until Discontinu ed morpHINE 30 No Patient [place] mg/30 mL 04-25 [place] ity of (fixed 10:45: 07:02 Dose: 1 [place] dose) TINSMITH HELPER 00 :59 mg
Lock Medi vipin injection [...] Yes .1mg 0.1 mg, Univer s (NARCAN) - Slow IV ity of injection 09:39: Push, [place] 0.1 mg 13 SEE-INSTRU Medical CTIONS, Branch Starting on Thu04/25/22 at 0339, Until Discontinu ed, Routine morpHINE 2 2022-0 Yes Slow IV Univ ers mg/mL LOAD 04-25 Push, ity of & RESCUE 09:39: Routine [place] INJECTION 13 Medical SYRG Branch naloxone 2022-2022- No .1mg 0.1 mg, Unive rs (NARCAN) 04-25 03-05 Slow IV ity of injection 09:39: 07:02 Push, [place] 0.1 mg 13 :59 SEE-INSTRU Medical CTIONS, Branch Starting on Thu04/25/22 at 0339, Until 04/27/22 at 0102, Routine morpHINE 2 2022-0 2022- No Slow IV Uni vers mg/mL LOAD 04-25-05 Push, ity of & RESCUE 09:39: 07:02 Routine [place] INJECTION 13 :59 Medical SYRG Branch HYDROmorpho Yes .2mg 0.2 mg, Uni vers ne 3-03 Slow IV ity of (DILAUDID) 09:36: Push, [place] injection 53 Q5MIN PRN, Medi vipin 0.2 mg 10 doses, Branch Starting on Thu04/25/22 at 0336, Until Discontinu ed, Routine, Pain (scale 7-10), PACU
Us e approved by (Faculty): PAIN SERVICE FENTanyl PF 2022-0 Yes 25ug 25 mcg, Uni vers (SUBLIMAZE 03 Slow IV ity of (PF)) 09:36: Push, [place] injection 53 Q5MIN PRN, Medi vipin 25 mcg 4 doses, Branch Starting on Thu04/25/22 at 0336, Until Discontinu ed, Routine, Pain (scale 4-6), PACU ondansetron Yes 4mg 4 mg, Slow Univers (ZOFRAN 04-25 IV Push, ity of (PF)) 09:36: PRN, 1 [place] injection 4 53 dose, Medical mg Starting Branch on Thu04/25/22 at 0336, Until Discontinu ed, Routine, Nausea and Vomiting (N/V), PACU HYDROmorpho 2022- No .2mg 0.2 mg, [place] ne 04-25 Slow IV ity of (DILAUDID) 09:36: 07:02 Push, [place] injection 53 :59 Q5MIN PRN, Medi vipin 0.2 mg 10 doses, Branch Starting on Thu04/25/22 at 0336, Until 04/27/22 at 0102, Routine, Pain (scale 7-10), PACU
Us e approved by (Faculty): PAIN SERVICE FENTanyl PF 2022-0 2022- No 25ug 25 mcg, [place] (SUBLIMAZE 04-2505 Slow IV ity o f (PF)) 09:36: 07:02 Push, [place] injection 53 :59 Q5MIN PRN, Medi vipin 25 mcg 4 doses, Branch Starting on Thu04/25/22 at 0336, Until 04/27/22 at 0102, Routine, Pain (scale 4-6), PACU ondansetron 2022-0 2022- No 4mg 4 mg, Slow Univers (ZOFRAN 04-25 03-05 IV Push, ity of (PF)) 09:36: 07:02 [...] then 150 mL/hr for 1 hr.
oxytocin 0 Yes 300mL/h 300 mL/hr, Univers (PITOCIN) 04-25 IV ity of 30 units in 08:42: Infusion, [facility] NS 500 mL 46 SEE-INSTRU Medi vipin IV infusion CTIONS, Branc h Starting on Thu04/25/[address] art at 300 mL/hr for 1 hr then 150 mL/hr for 1 hr. & nbsp; For post delivery uterotonic
oxytocin 2022-0 2022- No 600mL/h 600 mL/hr, Univers (PITOCIN) 04-25 IV ity of 30 units in 08:42: 07:02 Infusion, [place] NS 500 mL 46 :59 PRN, For Medica l IV infusion post Branch delivery uterine atony., Starting on Thu04/25/22 at 0242<br&gt ;Start at 600 mL/hr for 1 hr then 150 mL/hr for 1 hr.
oxytocin 2022-0 2022- No 300mL/h 300 mL/hr, Univers (PITOCIN) 04-25 IV ity of 30 units in 08:42: 07:02 Infusion, [place] NS 500 mL 46 :59 SEE-INSTRU Medi [...] 2022-2022- No 30mL 30 mL, Univers citrate-cit 04-2505 Oral, ity of batool acid 08:34: 07:02 PRE-PROCED [place] (BICITRA) 08 :59 URE ONCE, Medic al 500-334 1 dose, Branch mg/5 mL Starting solution 30 on Fri mL 04/25/22 at 0234, Until 04/27/22 at 0102, Routine, Surgery terbutaline 2022-0 2022- No .25mg 0.25 mg, Univers (BRETHINE) 04-25 03-03 Subcutaneo it y of injection 06:42: 06:42 us, ONCE, [place] 0.25 mg 00 :00 1 dose, On Medica l 04/25/22 Branch at 0045, Routine ropivacaine 2022-0 Yes Epidural, U nivers 0.2 % 04-25 CONTINUOUS ity of (NAROPIN 06:40: PRN, [place] ()) 00 Starting Medical epidural on Fri Branch infusion 04/25/22 at 0040, Until Discontinu ed, Routine, Intra-op fentaNYL-ro Yes Epidural, U nivers pivacaine 2 04-24 CONTINUOUS it y of mcg/mL-0.1 17:33: PRN, [place] % () in 00 Starting Medica l NS 200 [...] at 0936, Until Discontinu ed, LUCITA oxytocin 2022-0 202- No 2mU/min at 2-40 [place] (PITOCIN) 04-24 03-05 mL/hr, IV ity of 30 units in 15:36: 07:02 Infusion, [place] NS 500 mL 22 :59 TITRATE, Medica l IV infusion Starting Bran ch on Lorri 04/24/22 at 0936, Until 04/27/22 at 0102, LUCITA lactated 2022-0 2022- No 500mL at 999 Unive rs ringers IV 3 03-02 mL/hr, 500 it y of infusion 15:30: 17:14 mL, IV [place] 500 mL 00 :00 Infusion, Medical ONCE, 1 Branch dose, On Lorri 04/24/22 at 0930, Routine lactated 2022-0 Yes 500mL at 999 Univer s ringers IV 04-24 mL/hr, 500 ity of infusion 14:36: mL, IV [place] 500 mL 04 Infusion, Medical PRN - SEE Branch INSTRUCTIO NS, 1 dose, Starting on Lorri 04/24/22 at 0836, Until Discontinu ed, Routine lactated 2022-0 2022- No 500mL at 999 Unive rs ringers IV 04-24-05 mL/hr, 500 it y of infusion 14:36: 07:02 mL, IV [place] 500 mL 04 :59 Infusion, Medical PRN - SEE Branch INSTRUCTIO NS, 1 dose, Starting on Lorri 04/24/22 at 0836, Until 04/27/22 at 0102, Routine sodium 2022- No 30mL 30 mL, Univers citrate-cit 04-24 Oral, ity of batool acid 14:36: 17:16 PRE-PROCED [place] (BICITRA) 04 :00 URE ONCE, Medic al 500-334 1 dose, Branch mg/5 mL Starting solution 30 on Lorri 04/24/22 at 0836, Until [place] 04/24/22 at 1116, Routine, Surgery/Pr ocedure proMETHazin 2022- No 12.5mg 12.5 mg, Univers e 04-24 IV ity of (PHENERGAN) 09:15: 09:26 Piggyback, [place] 12.5 mg in 00 :46 at 200 Medical NS 50 mL IV mL/hr Branch piggyback Administer (CNR) over 15 Minutes, ONCE NOW, 1 dose, On Lorri 04/24/22 at 0315, Routine butorphanol No 1mg 1 mg, Univ ers (STADOL) 04-24 Intravenou ity of injection 1 09:00: 08:55 s, ONCE, 1 [place] mg 00 :00 dose, On Medical Lor[place] 04/24/22 Branch at 0300, Routine proMETHazin 2022- No 12.5mg 12.5 mg, Univers e 04-24- IV ity of (PHENERGAN) 03:07: 05:50 Piggyback, [place] 12.5 mg in 00 :09 at 200 Medical NS 50 mL IV mL/hr Branch piggyback Administer (CNR) over 15 Minutes, ONCE NOW, 1 dose, On Thu04/23/22 at 2115, LUCITA butorphanol 2022- No 1mg 1 mg, Univ ers (STADOL) 04-24 Intravenou ity of injection 1 03:07: 03:54 s, ONCE, 1 [place] mg 00 :00 dose, On Medical Thu04/23/22 Branch at 2115, Routine sodium Yes 30mL 30 mL, Univers citrate-cit 04-24 Oral, ity of batool acid 01:40: PRE-PROCED [place] (BICITRA) 33 URE ONCE, Medic al 500-334 1 dose, Branch mg/5 mL Starting solution 30 on Thu mL 04/23/22 at 1940, Until Discontinu ed, Routine, Surgery/Pr ocedure lidocaine 0 Yes 50mL 50 mL, Univer s 1% [...] only as a local anesthetic . lactated 2022-0 Yes 500mL at 999 Univer s ringers IV 3-02 mL/hr, 500 ity of infusion 01:40: mL, IV [place] 500 mL 33 Infusion, Medical PRN - SEE Branch INSTRUCTIO NS, Starting on Thu04/23/22 at 1940, Until Discontinu ed, Routine D5W-LR IV Yes 1000mL at 1-125 [place] infusion 3-02 mL/hr, IV ity of 1,000 mL 01:40: Infusion, [place] 33 TITRATE, Medical Starting Branch on Thu04/23/22 at 1940, Until Discontinu ed, Routine sodium 2022- No 30mL 30 mL, Univers citrate-cit 04-24-05 Oral, ity of batool acid 01:40: 07:02 PRE-PROCED [place] (BICITRA) 33 :59 URE ONCE, Medic al 500-334 1 dose, Branch mg/5 mL Starting solution 30 on Thu mL 04/23/22 at 1940, Until 04/27/22 at 0102, Routine, Surgery/Pr ocedure lidocaine 2022- No 50mL 50 mL, Unive rs 1% 04-2405 Infiltrati ity of (XYLOCAINE) 01:40: 07:02 on, PRN - [place] 10 mg/mL (1 33 :59 SEE Medical %) INSTRUCTIO Branch injection NS, 50 mL Starting on Thu04/23/22 at 1940, Until Thu04/27/22 [...] Until 04/27/22 at 0102, Routine D5W-LR IV 2022- No 1000mL at 1-125 U nivers infusion 04-24 03-05 mL/hr, IV ity o f 1,000 mL 01:40: 07:02 Infusion, [place] 33 :59 TITRATE, Medical Starting Branch on Thu04/23/22 at 1940, Until 04/27/22 at 0102, Routine alum-mag 0 Yes 30mL 30 mL, Univers hydroxide-s 04-24 Oral, ity of imeth 01:37: [place], [place] (MAALOX 05 Starting Medical PLUS / on [...] Until Discontinu ed, Routine, Constipati on alum-mag 2022- No 30mL 30 mL, Univer s hydroxide-s 04-24 Oral, ity of imeth 01:37: 07:02 [place], [place] (MAALOX 05 :59 Starting Medical PLUS [...] 0102, Routine, Constipati on fluconazole 2022- No [id number] 150mg Take 1 Univers (DIFLUCAN) 04-23 tablet by ity of 150 mg 00:00: 00:00 mouth [place] tablet 00 :00 now for 1 Medical dose. Branch fluconazole 2022- No [id number] 150mg Take 1 Univers (DIFLUCAN) 04-23 tablet by ity of 150 mg 00:00: 00:00 mouth [place] tablet 00 :00 now for 1 Medical dose. Branch fluconazole 2022- Yes [id number] 150mg Take 1 Univers (DIFLUCAN) 04-23 tablet by ity of 150 mg 00:00: 05:59 mouth [place] tablet 00 :00 now for 1 Medical dose. Branch ferrous Yes [id number] 325mg Take 1 [place] sulfate 325 2-15 tablet by ity of mg (65 mg 00:00: mouth [place] iron) 00 the Medical tablet morning Branch and 1 tablet in the evening. ascorbic Yes [id number] 500mg Take 1 U nivers acid, 2-15 tablet by ity of vitamin C, 00:00: mouth in [place] 500 mg 00 the Medical tablet morning Branch and 1 tablet at noon and 1 tablet in the evening. ferrous Yes [id number] 325mg Take 1 [place] sulfate 325 2-15 tablet by ity of mg (65 mg 00:00: mouth [place] iron) 00 the Medical tablet morning Branch and 1 tablet in the evening. ascorbic Yes [id number] 500mg Take 1 U nivers acid, 2-15 tablet by ity of vitamin C, 00:00: mouth in [place] 500 mg 00 the Medical tablet morning Branch and 1 tablet at noon and 1 tablet in the evening. ferrous Yes [id number] 325mg Take 1 [place] sulfate 325 2-15 tablet by ity of mg (65 mg 00:00: mouth [place] iron) 00 the Medical tablet morning Branch and 1 tablet in the evening. ascorbic 2022-0 Yes [id number] 500mg Take 1 U nivers acid, 2-15 tablet by ity of vitamin C, 00:00: mouth in [place] 500 mg 00 the Medical tablet morning Branch and 1 tablet at noon and 1 tablet in the evening. ferrous 2022-0 Yes [id number] 325mg Take 1 [place] sulfate 325 2-15 tablet by ity of mg (65 mg 00:00: mouth [place] iron) 00 the Medical tablet morning Branch and 1 tablet in the evening. ascorbic 2022-0 Yes [id number] 500mg Take 1 U nivers acid, 2-15 tablet by ity of vitamin C, 00:00: mouth in [place] 500 mg 00 the Medical tablet morning Branch and 1 tablet at noon and 1 tablet in the evening. ferrous 2022-0 Yes [id number] 325mg Take 1 [place] sulfate 325 2-15 tablet by ity of mg (65 mg 00:00: mouth [place] iron) 00 the Medical tablet morning Branch and 1 tablet in the evening. ascorbic 0 Yes [id number] 500mg Take 1 U nivers acid, 2-15 tablet by ity of vitamin C, 00:00: mouth in [place] 500 mg 00 the Medical tablet morning Branch and 1 tablet at noon and 1 tablet in the evening. ferrous 2022-0 Yes [id number] 325mg Take 1 [place] sulfate 325 2-15 tablet by ity of mg (65 mg 00:00: mouth [place] iron) 00 the Medical tablet morning Branch and 1 tablet in the evening. ascorbic 2022-0 Yes [id number] 500mg Take 1 U nivers acid, 2-15 tablet by ity of vitamin C, 00:00: mouth in [place] 500 mg 00 the Medical tablet morning Branch and 1 tablet at noon and 1 tablet in the evening. ferrous 0 2022- No [id number] 325mg Take 1 U nivers sulfate 325 2-15 -04 tablet by it y of mg (65 mg 00:00: 00:00 mouth in [place] iron) 00 :00 the Medical tablet morning Branch and 1 tablet in the evening. ascorbic 0 2022- No [id number] 500mg Take 1 Univers acid, 2-15 -04 tablet by ity of vitamin C, 00:00: 00:00 mouth in [place] 500 mg 00 :00 the Medical tablet morning Branch and 1 tablet at noon and 1 tablet in the evening. ferrous 2022- No [id number] 325mg Take 1 U nivers sulfate 325 04-09- tablet by it y of mg (65 mg 00:00: 00:00 mouth in [place] iron) 00 :00 the Medical tablet morning Branch and 1 tablet in the evening. ascorbic 2022- No [id number] 500mg Take 1 Univers acid, 2- tablet by ity of vitamin C, 00:00: 00:00 mouth in [place] 500 mg 00 :00 the Medical tablet morning Branch and 1 tablet at noon and 1 tablet in the evening. fluconazole 2022- No [id number] 150mg Take 1 Univers (DIFLUCAN) 2-14 -15 tablet by ity of 150 mg 00:00: 05:59 mouth [place] tablet 00 :00 now for 1 Medical dose. Branch metroNIDAZO 0 Yes [id number] 500mg Take 1 Univers LE 500 mg 2-02 tablet by ity o f tablet 00:00: mouth in [place] 00 the Medical morning Branch and 1 tablet in the evening. metroNIDAZO 2022-0 Yes [id number] 500mg Take 1 Univers LE 500 mg 2-02 tablet by ity o f tablet 00:00: mouth in [place] 00 the Medical morning Branch and 1 tablet in the evening. metroNIDAZO 2022-0 Yes [id number] 500mg Take 1 Univers LE 500 mg 2-02 tablet by ity o f tablet 00:00: mouth in [place] 00 the Medical morning Branch and 1 tablet in the evening. metroNIDAZO 2022-0 Yes [id number] 500mg Take 1 Univers LE 500 mg 2-02 tablet by ity o f tablet 00:00: mouth in [place] 00 the Medical morning Branch and 1 tablet in the evening. metroNIDAZO 2022-0 Yes [id number] 500mg Take 1 Univers LE 500 mg 2-02 tablet by ity o f tablet 00:00: mouth in [place] 00 the Medical morning Branch and 1 tablet in the evening. metroNIDAZO 2022-0 Yes [id number] 500mg Take 1 Univers LE 500 mg 2-02 tablet by ity o f tablet 00:00: mouth in [place] 00 the Medical morning Branch and 1 tablet in the evening. metroNIDAZO 2022-0 Yes [id number] 500mg Take 1 Univers LE 500 mg 2-02 tablet by ity o f tablet 00:00: mouth in [place] 00 the Medical morning Branch and 1 tablet in the evening. metroNIDAZO 2022-0 Yes [id number] 500mg Take 1 Univers LE 500 mg 2-02 tablet by ity o f tablet 00:00: mouth in [place] 00 the Medical morning Branch and 1 tablet in the evening. metroNIDAZO 2022-0 Yes [id number] 500mg Take 1 Univers LE 500 mg 2-02 tablet by ity o f tablet 00:00: mouth in [place] 00 the Medical morning Branch and 1 tablet in the evening. metroNIDAZO 2022-0 Yes [id number] 500mg Take 1 Univers LE 500 mg 2-02 tablet by ity o f tablet 00:00: mouth in [place] 00 the Medical morning Branch and 1 tablet in the evening. metroNIDAZO 2022-0 Yes [id number] 500mg Take 1 Univers LE 500 mg 2-02 tablet by ity o f tablet 00:00: mouth in [place] 00 the [facility] morning Branch and 1 tablet in the evening. metroNIDAZO 2022-0 2022- No [id number] 500mg Take 1 Univers LE 500 mg 2-02 03-04 tablet by ity of tablet 00:00: 00:00 mouth in [place] 00 :00 the Medical morning Branch and 1 tablet in the evening. metroNIDAZO 2022-0 3- No [id number] 500mg Take 1 Univers LE 500 mg 2-02 03-04 tablet by ity of tablet 00:00: 00:00 mouth in [place] 00 :00 the [facility] morning Branch and 1 tablet in the evening. fluconazole 2022-0 2022- No [id number] 150mg Take 1 Univers (DIFLUCAN) 03-25 tablet by ity of 150 mg 00:00: 05:59 mouth once [place] tablet 00 :00 now for 1 Medical dose. Branch fluconazole 2022-0 2022- No [id number] 150mg Take 1 Univers (DIFLUCAN) 03-25 tablet by ity of 150 mg 00:00: 05:59 mouth once [place] tablet 00 :00 now for 1 Medical dose. Branch fluconazole 2022- No [id number] 150mg Take 1 Univers (DIFLUCAN) 03-25 tablet by ity of 150 mg 00:00: 05:59 mouth once [place] tablet 00 :00 now for 1 Medical dose. Branch fluconazole 2022- No [id number] 150mg Take 1 Univers (DIFLUCAN) 03-25 tablet [...] Oral, ity of batool acid 00:00: PC+HS, [place] (BICITRA) 00 First dose Medi vipin 500-334 on Thu Branch mg/5 mL 02/05/22 solution 15 at 1800, mL Until Discontinu ed, Routine sodium 2021-02 Yes 15mL 15 mL, Univers citrate-cit 2-12 Oral, ity of batool acid 00:00: PC+HS, [place] (BICITRA) 00 First dose Medi vipin 500-334 on Thu Branch mg/5 mL 02/02/22 solution 15 at 1800, mL Until Discontinu ed, Routine 2021-02- No [facility] [place] [facility] 2-11 12-11 mouth. ity of no.124/iron 18:49: 00:00 [place] /folic 59 :00 Medical ( Branch VITAMIN ORAL) 2021-02- No [facility] [place] [facility] vit 2-11 12-11 mouth. ity of no.124/iron 18:49: 00:00 [place] /folic 59 :00 Medical ( Branch VITAMIN ORAL) 2021-02 Yes Take by Univer s vit 2-11 mouth. ity of no.124/iron 18:33: [place] /folic 28 Medical ( Branch VITAMIN ORAL) Iron Fum & 2021-02 Yes [id number] 1{capsu Take 1 Univers P-FA-Vit B 2-11 le} capsule by ity of & C No.9 00:00: mouth [place] (INTEGRA daily. Medical PLUS) 125 Branch mg iron- 1 mg Cap Iron Fum & 2021-02 Yes [id number] 1{capsu Take 1 Univers P-FA-Vit B 2-11 le} capsule by ity of & C No.9 00:00: mouth [place] (INTEGRA daily. Medical PLUS) 125 Branch mg iron- 1 mg Cap Iron Fum & 2021-02 Yes [id number] 1{capsu Take 1 Univers P-FA-Vit B 2-11 le} capsule by ity of & C No.9 00:00: mouth [place] (INTEGRA daily. Medical PLUS) 125 Branch mg iron- 1 mg Cap Iron Fum & 2021-02 Yes [id number] 1{capsu Take 1 Univers P-FA-Vit B 2-11 le} capsule by ity of & C No.9 00:00: mouth [place] (INTEGRA daily. Medical PLUS) 125 Branch mg iron- 1 mg Cap Iron Fum & 2021-02 Yes [id number] 1{capsu Take 1 Univers P-FA-Vit B 2-11 le} capsule by ity of & C No.9 00:00: mouth [place] (INTEGRA daily. Medical PLUS) 125 Branch mg iron- 1 mg Cap Iron Fum & 2021-02 Yes [id number] 1{capsu Take 1 Univers P-FA-Vit B 2-11 le} capsule by ity of & C No.9 00:00: mouth [place] (INTEGRA daily. Medical PLUS) 125 Branch mg iron- 1 mg Cap Iron Fum & 2021-02 Yes [id number] 1{capsu Take 1 Univers P-FA-Vit B 2-11 le} capsule by ity of & C No.9 00:00: mouth [place] (INTEGRA daily. Medical PLUS) 125 Branch mg iron- 1 mg Cap Iron Fum & 2021-02 Yes [id number] 1{capsu Take 1 Univers P-FA-Vit B 2-11 le} capsule by ity of & C No.9 00:00: mouth [place] (INTEGRA daily. Medical PLUS) 125 Branch mg iron- 1 mg Cap Iron Fum & 2021-02 Yes 1{capsu Take 1 Univers P-FA-Vit B 2-11 le} capsule by ity of & C No.9 00:00: mouth [place] (INTEGRA daily. Medical PLUS) 125 Branch mg iron- 1 mg Cap Iron Fum & 2021-02 Yes 1{capsu Take 1 Univers P-FA-Vit B 2-11 le} capsule by ity of & C No.9 00:00: mouth [place] (INTEGRA daily. Medical PLUS) 125 Branch mg iron- 1 mg Cap Iron Fum & 2021-02 Yes 1{capsu Take 1 Univers P-FA-Vit B 2-11 le} capsule by ity of & C No.9 00:00: mouth [place] (INTEGRA daily. Medical PLUS) 125 Branch mg iron- 1 mg Cap Iron Fum & 2021-02 Yes 1{capsu Take 1 Univers P-FA-Vit B 2-11 le} capsule by ity of & C No.9 00:00: mouth [place] (INTEGRA daily. Medical PLUS) 125 Branch mg iron- 1 mg Cap Iron Fum & 2021-02 Yes 1{capsu Take 1 Univers P-FA-Vit B 2-11 le} capsule by ity of & C No.9 00:00: mouth [place] (INTEGRA daily. Medical PLUS) 125 Branch mg iron- 1 mg Cap Iron Fum & 2021-02 Yes 1{capsu Take 1 Univers P-FA-Vit B 2-11 le} capsule by ity of & C No.9 00:00: mouth [place] (INTEGRA daily. Medical PLUS) 125 Branch mg iron- 1 mg Cap Iron Fum & 2021- Yes 1{capsu Take 1 Univers P-FA-Vit B 2-11 le} capsule by ity of & C No.9 00:00: mouth [place] (INTEGRA 00 daily. Medical PLUS) 125 Branch mg iron- 1 mg Cap Iron Fum & 2021- Yes 1{capsu Take 1 Univers P-FA-Vit B 2-11 le} capsule by ity of & C No.9 00:00: mouth [place] (INTEGRA 00 daily. Medical PLUS) 125 Branch mg iron- 1 mg Cap Iron Fum & 2021-02 Yes [id number] 1{capsu Take 1 Univers P-FA-Vit B 2-11 le} capsule by ity of & C No.9 00:00: mouth [place] (INTEGRA 00 daily. Medical PLUS) 125 Branch mg iron- 1 mg Cap Iron Fum & 2021-02 Yes 1{capsu Take 1 Univers P-FA-Vit B 2-11 le} capsule by ity of & C No.9 00:00: mouth [place] (INTEGRA 00 daily. Medical PLUS) 125 Branch mg iron- 1 mg Cap Iron Fum & 2021-02 Yes 1{capsu Take 1 Univers P-FA-Vit B 2-11 le} capsule by ity of & C No.9 00:00: mouth [place] (INTEGRA daily. Medical PLUS) 125 Branch mg iron- 1 mg Cap Iron Fum & 2021-02 Yes 1{capsu Take 1 Univers P-FA-Vit B 2-11 le} capsule by ity of & C No.9 00:00: mouth [place] (INTEGRA 00 daily. Medical PLUS) 125 Branch mg iron- 1 mg Cap Iron Fum & 2021-02 Yes 1{capsu Take 1 Univers P-FA-Vit B 2-11 le} capsule by ity of & C No.9 00:00: mouth [place] (INTEGRA 00 daily. Medical PLUS) 125 Branch mg iron- 1 mg Cap Iron Fum & 2021-02 Yes [id number] 1{capsu Take 1 Univers P-FA-Vit B 2-11 le} capsule by ity of & C No.9 00:00: mouth [place] (INTEGRA 00 daily. Medical PLUS) 125 Branch mg iron- 1 mg Cap Iron Fum & 2021-02 Yes 1{capsu Take 1 Univers P-FA-Vit B 2-11 le} capsule by ity of & C No.9 00:00: mouth [place] (INTEGRA 00 daily. Medical PLUS) 125 Branch mg iron- 1 mg Cap Iron Fum & 2021- Yes 1{capsu Take 1 Univers P-FA-Vit B 2-11 le} capsule by ity of & C No.9 00:00: mouth [place] (INTEGRA 00 daily. Medical PLUS) 125 Branch mg iron- 1 mg Cap Iron Fum & 2021-02 Yes [id number] 1{capsu Take 1 Univers P-FA-Vit B 2-11 le} capsule by ity of & C No.9 00:00: mouth [place] (INTEGRA 00 daily. Medical PLUS) 125 Branch mg iron- 1 mg Cap Iron Fum & 2021-02 Yes [id number] 1{capsu Take 1 Univers P-FA-Vit B 2-11 le} capsule by ity of & C No.9 00:00: mouth [place] (INTEGRA 00 daily. Medical PLUS) 125 Branch mg iron- 1 mg Cap Iron Fum & 2021-02 Yes [id number] 1{capsu Take 1 Univers P-FA-Vit B 2-11 le} capsule by ity of & C No.9 00:00: mouth [place] (INTEGRA 00 daily. Medical PLUS) 125 Branch mg iron- 1 mg Cap Iron Fum & 2021-02 Yes [id number] 1{capsu Take 1 Univers P-FA-Vit B 2-11 le} capsule by ity of & C No.9 00:00: mouth [place] (INTEGRA 00 daily. Medical PLUS) 125 Branch mg iron- 1 mg Cap Iron Fum & 2021-02- No [id number] 1{capsu Take 1 Univers P-FA-Vit B 2-11 03-04 le} capsule by it y of & C No.9 00:00: 00:00 mouth [place] (INTEGRA 00 :00 daily. Medical PLUS) 125 Branch mg iron- 1 mg Cap Iron Fum & 2021-02- No [id number] 1{capsu Take 1 Univers P-FA-Vit B 2-11 [...] ( Branch VITAMIN ORAL) montelukast 2021- No [id number] 10mg Take 1 Univers 10 mg 10-24 103 tablet by ity of tablet 00:00: 05:59 mouth [place] 00 :00 every Medical evening Branch for 90 days. montelukast 2021- No [id number] 10mg Take 1 Univers 10 mg 10-24 103 tablet by ity of tablet 00:00: 05:59 mouth [place] 00 :00 every Medical evening Branch for 90 days. montelukast 2021- No [id number] 10mg Take 1 Univers 10 mg 10-24 103 tablet by ity of tablet 00:00: 05:59 mouth [place] 00 :00 every Medical evening Branch for 90 days. montelukast 2021- No [id number] 10mg Take 1 Univers 10 mg 10-24 103 tablet by ity of tablet 00:00: 05:59 mouth [place] 00 :00 every Medical evening Branch for 90 days. montelukast 2021- No [id number] 10mg Take 1 Univers 10 mg 10-24 103 tablet by ity of tablet 00:00: 05:59 mouth [place] 00 :00 every Medical evening Branch for 90 days. montelukast 2021- No [id number] 10mg Take 1 Univers 10 mg 10-24 103 tablet by ity of tablet 00:00: 05:59 mouth [place] 00 :00 every Medical evening Branch for 90 days. montelukast 2021- No [id number] 10mg Take 1 Univers 10 mg 10-24 103 tablet by ity of tablet 00:00: 05:59 mouth [place] 00 :00 every Medical evening Branch for 90 days. montelukast 2021- No [id number] 10mg Take 1 Univers 10 mg 10-24 103 tablet by ity of tablet 00:00: 05:59 mouth [place] 00 :00 every Medical evening Branch for 90 days. montelukast 2021- No [id number] 10mg Take 1 Univers 10 mg 10-24 103 tablet by ity of tablet 00:00: 05:59 mouth [place] 00 :00 every Medical evening Branch for 90 days. montelukast 2021- No [id number] 10mg Take 1 Univers 10 mg 10-24 103 tablet by ity of tablet 00:00: 05:59 mouth [place] 00 :00 every Medical evening Branch for 90 days. montelukast 2021- No [id number] 10mg Take 1 Univers 10 mg 10-24 103 tablet by ity of tablet 00:00: 05:59 mouth [place] 00 :00 every Medical evening Branch for 90 days. montelukast 2021- No [id number] 10mg Take 1 Univers 10 mg 10-24 103 tablet by ity of tablet 00:00: 05:59 mouth [place] 00 :00 every Medical evening Branch for 90 days. PNV 67-iron Yes [id number] 1{each} Take 1 [facility] ps-folate 8-26 Each by ity of no.1-dha 00:00: mouth [place] (VITAFOL 00 daily. Medical ULTRA) 29 Branch mg iron- 1 mg-200 mg Cap PNV 67-iron Yes [id number] 1{each} Take 1 Univers ps-folate 8-26 Each by ity of no.1-dha 00:00: mouth [place] (VITAFOL 00 daily. Medical ULTRA) 29 Branch mg iron- 1 mg-200 mg Cap PNV 67-iron 2021-0 Yes [id number] 1{each} Take 1 Univers ps-folate 8-26 Each by ity of no.1-dha 00:00: mouth [place] (VITAFOL 00 daily. Medical ULTRA) 29 Branch mg iron- 1 mg-200 mg Cap PNV 67-iron 2021-0 Yes [id number] 1{each} Take 1 Univers ps-folate 8-26 Each by ity of no.1-dha 00:00: mouth [place] (VITAFOL 00 daily. Medical ULTRA) 29 Branch mg iron- 1 mg-200 mg Cap PNV 67-iron 2021-0 Yes [id number] 1{each} Take 1 [facility] ps-folate 8-26 Each by ity of no.1-dha 00:00: mouth [place] (VITAFOL 00 daily. Medical ULTRA) 29 Branch mg iron- 1 mg-200 mg Cap PNV 67-iron 2021-0 Yes [id number] 1{each} Take 1 [facility] ps-folate 8-26 Each by ity of no.1-dha 00:00: mouth [place] (VITAFOL 00 daily. Medical ULTRA) 29 Branch mg iron- 1 mg-200 mg Cap PNV 67-iron 2021-0 Yes [id number] 1{each} Take 1 Univers ps-folate 8-26 Each by ity of no.1-dha 00:00: mouth [place] (VITAFOL 00 daily. Medical ULTRA) 29 Branch mg iron- 1 mg-200 mg Cap PNV 67-iron 2021-0 Yes [id number] 1{each} Take 1 [facility] ps-folate 8-26 Each by ity of no.1-dha 00:00: mouth [place] (VITAFOL 00 daily. Medical ULTRA) 29 Branch mg iron- 1 mg-200 mg Cap PNV 67-iron 2-0 Yes [id number] 1{each} Take 1 [facility] ps-folate 8-26 Each by ity of no.1-dha 00:00: mouth [place] (VITAFOL 00 daily. Medical ULTRA) 29 Branch mg iron- 1 mg-200 mg Cap PNV 67-iron 2-0 Yes [id number] 1{each} Take 1 [facility] ps-folate 8-26 Each by ity of no.1-dha 00:00: mouth [place] (VITAFOL 00 daily. Medical ULTRA) 29 Branch mg iron- 1 mg-200 mg Cap PNV 67-iron 2021-0 Yes [id number] 1{each} Take 1 [facility] ps-folate 8-26 Each by ity of no.1-dha 00:00: mouth [place] (VITAFOL 00 daily. Medical ULTRA) 29 Branch mg iron- 1 mg-200 mg Cap PNV 67-iron 2021-0 Yes [id number] 1{each} Take 1 [facility] ps-folate 8-26 Each by ity of no.1-dha 00:00: mouth [place] (VITAFOL 00 daily. Medical ULTRA) 29 Branch mg iron- 1 mg-200 mg Cap PNV 67-iron 2021-0 Yes [id number] 1{each} Take 1 [facility] ps-folate 8-26 Each by ity of no.1-dha 00:00: mouth [place] (VITAFOL 00 daily. Medical ULTRA) 29 Branch mg iron- 1 mg-200 mg Cap PNV 67-iron 2021-0 Yes [id number] 1{each} Take 1 [facility] ps-folate 8-26 Each by ity of no.1-dha 00:00: mouth [place] (VITAFOL 00 daily. Medical ULTRA) 29 Branch mg iron- 1 mg-200 mg Cap PNV 67-iron 2021-0 Yes [id number] 1{each} Take 1 [facility] ps-folate 8-26 Each by ity of no.1-dha 00:00: mouth [place] (VITAFOL 00 daily. Medical ULTRA) 29 Branch mg iron- 1 mg-200 mg Cap PNV 67-iron 2021-0 Yes [id number] 1{each} Take 1 [facility] ps-folate 8-26 Each by ity of no.1-dha 00:00: mouth [place] (VITAFOL 00 daily. Medical ULTRA) 29 Branch mg iron- 1 mg-200 mg Cap PNV 67-iron 2-0 Yes [id number] 1{each} Take 1 [facility] ps-folate 8-26 Each by ity of no.1-dha 00:00: mouth [place] (VITAFOL 00 daily. Medical ULTRA) 29 Branch mg iron- 1 mg-200 mg Cap PNV 67-iron 2022-0 Yes [id number] 1{each} Take 1 [facility] ps-folate 8-26 Each by ity of no.1-dha 00:00: mouth [place] (VITAFOL 00 daily. Medical ULTRA) 29 Branch mg iron- 1 mg-200 mg Cap PNV 67-iron 2021-0 Yes [id number] 1{each} Take 1 [facility] ps-folate 8-26 Each by ity of no.1-dha 00:00: mouth [place] (VITAFOL 00 daily. Medical ULTRA) 29 Branch mg iron- 1 mg-200 mg Cap PNV 67-iron 2021-0 Yes [id number] 1{each} Take 1 [facility] ps-folate 8-26 Each by ity of no.1-dha 00:00: mouth [place] (VITAFOL 00 daily. Medical ULTRA) 29 Branch mg iron- 1 mg-200 mg Cap PNV 67-iron 2021-0 Yes [id number] 1{each} Take 1 [facility] ps-folate 8-26 Each by ity of no.1-dha 00:00: mouth [place] (VITAFOL 00 daily. Medical ULTRA) 29 Branch mg iron- 1 mg-200 mg Cap PNV 67-iron 2021-0 Yes [id number] 1{each} Take 1 [facility] ps-folate 8-26 Each by ity of no.1-dha 00:00: mouth [place] (VITAFOL 00 daily. Medical ULTRA) 29 Branch mg iron- 1 mg-200 mg Cap PNV 67-iron 2021-0 Yes [id number] 1{each} Take 1 [facility] ps-folate 8-26 Each by ity of no.1-dha 00:00: mouth [place] (VITAFOL 00 daily. Medical ULTRA) 29 Branch mg iron- 1 mg-200 mg Cap PNV 67-iron 2021-0 Yes [id number] 1{each} Take 1 [facility] ps-folate 8-26 Each by ity of no.1-dha 00:00: mouth [place] (VITAFOL 00 daily. Medical ULTRA) 29 Branch mg iron- 1 mg-200 mg Cap PNV 67-iron 2-0 Yes [id number] 1{each} Take 1 [facility] ps-folate 8-26 Each by ity of no.1-dha 00:00: mouth [place] (VITAFOL 00 daily. Medical ULTRA) 29 Branch mg iron- 1 mg-200 mg Cap PNV 67-iron 2-0 Yes [id number] 1{each} Take 1 [facility] ps-folate 8-26 Each by ity of no.1-dha 00:00: mouth [place] (VITAFOL 00 daily. Medical ULTRA) 29 Branch mg iron- 1 mg-200 mg Cap PNV 67-iron 2-0 Yes [id number] 1{each} Take 1 [facility] ps-folate 8-26 Each by ity of no.1-dha 00:00: mouth [place] (VITAFOL 00 daily. Medical ULTRA) 29 Branch mg iron- 1 mg-200 mg Cap PNV 67-iron 2-0 Yes [id number] 1{each} Take 1 [facility] ps-folate 8-26 Each by ity of no.1-dha 00:00: mouth [place] (VITAFOL 00 daily. Medical ULTRA) 29 Branch mg iron- 1 mg-200 mg Cap PNV 67-iron 2-0 Yes [id number] 1{each} Take 1 [facility] ps-folate 8-26 Each by ity of no.1-dha 00:00: mouth [place] (VITAFOL 00 daily. Medical ULTRA) 29 Branch mg iron- 1 mg-200 mg Cap PNV 67-iron 2021-0 Yes [id number] 1{each} Take 1 [facility] ps-folate 8-26 Each by ity of no.1-dha 00:00: mouth [place] (VITAFOL 00 daily. Medical ULTRA) 29 Branch mg iron- 1 mg-200 mg Cap PNV 67-iron 2-0 Yes [id number] 1{each} Take 1 [facility] ps-folate 8-26 Each by ity of no.1-dha 00:00: mouth [place] (VITAFOL 00 daily. Medical ULTRA) 29 Branch mg iron- 1 mg-200 mg Cap PNV 67-iron 2-0 Yes [id number] 1{each} Take 1 [facility] ps-folate 8-26 Each by ity of no.1-dha 00:00: mouth [place] (VITAFOL 00 daily. Medical ULTRA) 29 Branch mg iron- 1 mg-200 mg Cap PNV 67-iron 2-0 Yes [id number] 1{each} Take 1 [facility] ps-folate 8-26 Each by ity of no.1-dha 00:00: mouth [place] (VITAFOL 00 daily. Medical ULTRA) 29 Branch mg iron- 1 mg-200 mg Cap PNV 67-iron 2022-0 Yes [id number] 1{each} Take 1 [facility] ps-folate 8-26 Each by ity of no.1-dha 00:00: mouth [place] (VITAFOL 00 daily. Medical ULTRA) 29 Branch mg iron- 1 mg-200 mg Cap PNV 67-iron 2-0 Yes [id number] 1{each} Take 1 [facility] ps-folate 8-26 Each by ity of no.1-dha 00:00: mouth [place] (VITAFOL 00 daily. Medical ULTRA) 29 Branch mg iron- 1 mg-200 mg Cap PNV 67-iron 2-0 Yes [id number] 1{each} Take 1 [facility] ps-folate 8-26 Each by ity of no.1-dha 00:00: mouth [place] (VITAFOL 00 daily. Medical ULTRA) 29 Branch mg iron- 1 mg-200 mg Cap PNV 67-iron 2-0 Yes [id number] 1{each} Take 1 [facility] ps-folate 8-26 Each by ity of no.1-dha 00:00: mouth [place] (VITAFOL 00 daily. Medical ULTRA) 29 Branch mg iron- 1 mg-200 mg Cap PNV 67-iron 2-0 Yes [id number] 1{each} Take 1 [facility] ps-folate 8-26 Each by ity of no.1-dha 00:00: mouth [place] (VITAFOL 00 daily. Medical ULTRA) 29 Branch mg iron- 1 mg-200 mg Cap PNV 67-iron 2-0 Yes [id number] 1{each} Take 1 [facility] ps-folate 8-26 Each by ity of no.1-dha 00:00: mouth [place] (VITAFOL 00 daily. Medical ULTRA) 29 Branch mg iron- 1 mg-200 mg Cap PNV 67-iron 2-0 Yes [id number] 1{each} Take 1 [facility] ps-folate 8-26 Each by ity of no.1-dha 00:00: mouth [place] (VITAFOL 00 daily. Medical ULTRA) 29 Branch mg iron- 1 mg-200 mg Cap PNV 67-iron 2-0 Yes [id number] 1{each} Take 1 [facility] ps-folate 8-26 Each by ity of no.1-dha 00:00: mouth [place] (VITAFOL 00 daily. Medical ULTRA) 29 Branch mg iron- 1 mg-200 mg Cap PNV 67-iron 2021-0 Yes [id number] 1{each} Take 1 [facility] ps-folate 8-26 Each by ity of no.1-dha 00:00: mouth [place] (VITAFOL 00 daily. Medical ULTRA) 29 Branch mg iron- 1 mg-200 mg Cap PNV 67-iron 2021-0 Yes [id number] 1{each} Take 1 [facility] ps-folate 8-26 Each by ity of no.1-dha 00:00: mouth [place] (VITAFOL 00 daily. Medical ULTRA) 29 Branch mg iron- 1 mg-200 mg Cap PNV 67-iron 2021-0 Yes [id number] 1{each} Take 1 [facility] ps-folate 8-26 Each by ity of no.1-dha 00:00: mouth [place] (VITAFOL 00 daily. Medical ULTRA) 29 Branch mg iron- 1 mg-200 mg Cap PNV 67-iron 2021-0 Yes [id number] 1{each} Take 1 [facility] ps-folate 8-26 Each by ity of no.1-dha 00:00: mouth [place] (VITAFOL 00 daily. Medical ULTRA) 29 Branch mg iron- 1 mg-200 mg Cap PNV 67-iron 2-0 3- No [id number] 1{each} Take 1 [facility] ps-folate 8-26 03-04 Each by ity of no.1-dha 00:00: 00:00 mouth [place] (VITAFOL 00 :00 daily. Medical ULTRA) 29 Branch mg iron- 1 mg-200 mg Cap PNV 67-iron 2-0 3- No [id number] 1{each} Take 1 [facility] ps-folate 8-26 03-04 Each by ity of no.1-dha 00:00: 00:00 mouth [place] (VITAFOL 00 :00 daily. Medical ULTRA) 29 Branch mg iron- 1 mg-200 mg Cap Budesonide 2021-0 Yes [id number] 1{puff} Inhale 1 Univers 90 8-08 103 Puff in ity of mcg/actuati 00:00: the on aerosol 00 morning Medica l powder and 1 Puff Branch in the evening. Budesonide 2021-0 Yes [id number] 1{puff} Inhale 1 Univers 90 8-08 103 Puff in ity of mcg/actuati 00:00: the on aerosol morning Medica l powder and 1 Puff Branch in the evening. Budesonide Yes [id number] 1{puff} Inhale 1 Univers 90 8-08 103 Puff in ity of mcg/actuati 00:00: the on aerosol morning Medica l powder and 1 Puff Branch in the evening. Budesonide Yes [id number] 1{puff} Inhale 1 Univers 90 8-08 103 Puff in ity of mcg/actuati 00:00: the on aerosol morning Medica l powder and 1 Puff Branch in the evening. Budesonide Yes [id number] 1{puff} Inhale 1 Univers 90 8-08 103 Puff in ity of mcg/actuati 00:00: the [place] on aerosol morning Medica l powder and 1 Puff Branch in the evening. Budesonide Yes [id number] 1{puff} Inhale 1 Univers 90 8-08 103 Puff in ity of mcg/actuati 00:00: the on aerosol morning Medica l powder and 1 Puff Branch in the evening. Budesonide Yes [id number] 1{puff} Inhale 1 Univers 90 8-08 103 Puff in ity of mcg/actuati 00:00: the on aerosol morning Medica l powder and 1 Puff Branch in the evening. Budesonide Yes [id number] 1{puff} Inhale 1 Univers 90 8-08 103 Puff in ity of mcg/actuati 00:00: the on aerosol morning Medica l powder and 1 Puff Branch in the evening. Budesonide 0 Yes [id number] 1{puff} Inhale 1 Univers 90 8-08 103 Puff in ity of mcg/actuati 00:00: the on aerosol 00 morning Medica l powder and 1 Puff Branch in the evening. Budesonide 0 Yes [id number] 1{puff} Inhale 1 Univers 90 8-08 103 Puff in ity of mcg/actuati 00:00: the on aerosol morning Medica l powder and 1 Puff Branch in the evening. Budesonide Yes [id number] 1{puff} Inhale 1 Univers 90 8-08 103 Puff in ity of mcg/actuati 00:00: the [place] on aerosol 00 morning Medica l powder and 1 Puff Branch in the evening. Budesonide Yes [id number] 1{puff} Inhale 1 Univers 90 8-08 103 Puff in ity of mcg/actuati 00:00: the on aerosol 00 morning Medica l powder and 1 Puff Branch in the evening. Budesonide Yes [id number] 1{puff} Inhale 1 Univers 90 8-08 103 Puff in ity of mcg/actuati 00:00: the on aerosol 00 morning Medica l powder and 1 Puff Branch in the evening. Budesonide Yes [id number] 1{puff} Inhale 1 Univers 90 8-08 103 Puff in ity of mcg/actuati 00:00: the [place] on aerosol morning Medica l powder and 1 Puff Branch in the evening. Budesonide Yes [id number] 1{puff} Inhale 1 Univers 90 8-08 103 Puff in ity of mcg/actuati 00:00: the [place] on aerosol morning Medica l powder and 1 Puff Branch in the evening. Budesonide Yes [id number] 1{puff} Inhale 1 Univers 90 8-08 103 Puff in ity of mcg/actuati 00:00: the [place] on aerosol morning Medica l powder and 1 Puff Branch in the evening. Budesonide Yes [id number] 1{puff} Inhale 1 Univers 90 8-08 103 Puff in ity of mcg/actuati 00:00: the [place] on aerosol 00 morning Medica l powder and 1 Puff Branch in the evening. Budesonide Yes [id number] 1{puff} Inhale 1 Univers 90 8-08 103 Puff in ity of mcg/actuati 00:00: the [place] on aerosol 00 morning Medica l powder and 1 Puff Branch in the evening. Budesonide Yes [id number] 1{puff} Inhale 1 Univers 90 8-08 103 Puff in ity of mcg/actuati 00:00: the on aerosol morning Medica l powder and 1 Puff Branch in the evening. Budesonide Yes [id number] 1{puff} Inhale 1 Univers 90 8-08 103 Puff in ity of mcg/actuati 00:00: the on aerosol morning Medica l powder and 1 Puff Branch in the evening. Budesonide Yes [id number] 1{puff} Inhale 1 Univers 90 8-08 103 Puff in ity of mcg/actuati 00:00: the on aerosol morning Medica l powder and 1 Puff Branch in the evening. Budesonide Yes [id number] 1{puff} Inhale 1 Univers 90 8-08 103 Puff in ity of mcg/actuati 00:00: the [place] on aerosol morning Medica l powder and 1 Puff Branch in the evening. Budesonide Yes [id number] 1{puff} Inhale 1 Univers 90 8-08 103 Puff in ity of mcg/actuati 00:00: the [place] on aerosol morning Medica l powder and 1 Puff Branch in the evening. Budesonide Yes [id number] 1{puff} Inhale 1 Univers 90 8-08 103 Puff in ity of mcg/actuati 00:00: the [place] on aerosol morning Medica l powder and 1 Puff Branch in the evening. Budesonide Yes [id number] 1{puff} Inhale 1 Univers 90 8-08 103 Puff in ity of mcg/actuati 00:00: the on aerosol morning Medica l powder and 1 Puff Branch in the evening. Budesonide Yes [id number] 1{puff} Inhale 1 Univers 90 8-08 103 Puff in ity of mcg/actuati 00:00: the on aerosol 00 morning Medica l powder and 1 Puff Branch in the evening. Budesonide 0 Yes [id number] 1{puff} Inhale 1 Univers 90 8-08 103 Puff in ity of mcg/actuati 00:00: the [place] on aerosol 00 morning Medica l powder and 1 Puff Branch in the evening. Budesonide Yes [id number] 1{puff} Inhale 1 Univers 90 8-08 103 Puff in ity of mcg/actuati 00:00: the on aerosol 00 morning Medica l powder and 1 Puff Branch in the evening. Budesonide Yes [id number] 1{puff} Inhale 1 Univers 90 8-08 103 Puff in ity of mcg/actuati 00:00: the on aerosol 00 morning Medica l powder and 1 Puff Branch in the evening. Budesonide Yes [id number] 1{puff} Inhale 1 Univers 90 8-08 103 Puff in ity of mcg/actuati 00:00: the [place] on aerosol 00 morning Medica l powder and 1 Puff Branch in the evening. Budesonide Yes [id number] 1{puff} Inhale 1 Univers 90 8-08 103 Puff in ity of mcg/actuati 00:00: the [place] on aerosol morning Medica l powder and 1 Puff Branch in the evening. Budesonide Yes [id number] 1{puff} Inhale 1 Univers 90 8-08 103 Puff in ity of mcg/actuati 00:00: the [place] on aerosol morning Medica l powder and 1 Puff Branch in the evening. Budesonide Yes [id number] 1{puff} Inhale 1 Univers 90 8-08 103 Puff in ity of mcg/actuati 00:00: the [place] on aerosol morning Medica l powder and 1 Puff Branch in the evening. Budesonide Yes [id number] 1{puff} Inhale 1 Univers 90 8-08 103 Puff in ity of mcg/actuati 00:00: the [place] on aerosol 00 morning Medica l powder and 1 Puff Branch in the evening. Budesonide Yes [id number] 1{puff} Inhale 1 Univers 90 8-08 103 Puff in ity of mcg/actuati 00:00: the [place] on aerosol 00 morning Medica l powder and 1 Puff Branch in the evening. Budesonide Yes [id number] 1{puff} Inhale 1 Univers 90 8-08 103 Puff in ity of mcg/actuati 00:00: the on aerosol 00 morning Medica l powder and 1 Puff Branch in the evening. Budesonide Yes [id number] 1{puff} Inhale 1 Univers 90 8-08 103 Puff in ity of mcg/actuati 00:00: the on aerosol morning Medica l powder and 1 Puff Branch in the evening. Budesonide Yes [id number] 1{puff} Inhale 1 Univers 90 8-08 103 Puff in ity of mcg/actuati 00:00: the on aerosol morning Medica l powder and 1 Puff Branch in the evening. Budesonide Yes [id number] 1{puff} Inhale 1 Univers 90 8-08 103 Puff in ity of mcg/actuati 00:00: the on aerosol morning Medica l powder and 1 Puff Branch in the evening. Budesonide Yes [id number] 1{puff} Inhale 1 Univers 90 8-08 103 Puff in ity of mcg/actuati 00:00: the on aerosol morning Medica l powder and 1 Puff Branch in the evening. Budesonide Yes [id number] 1{puff} Inhale 1 Univers 90 8-08 103 Puff in ity of mcg/actuati 00:00: the on aerosol morning Medica l powder and 1 Puff Branch in the evening. Budesonide Yes [id number] 1{puff} Inhale 1 Univers 90 8-08 103 Puff in ity of mcg/actuati 00:00: the on aerosol morning Medica l powder and 1 Puff Branch in the evening. Budesonide Yes [id number] 1{puff} Inhale 1 Univers 90 8-08 103 Puff in ity of mcg/actuati 00:00: the on aerosol 00 morning Medica l powder and 1 Puff Branch in the evening. Budesonide Yes [id number] 1{puff} Inhale 1 Univers 90 8-08 103 Puff in ity of mcg/actuati 00:00: the on aerosol 00 morning Medica l powder and 1 Puff Branch in the evening. Budesonide Yes [id number] 1{puff} Inhale 1 Univers 90 8-08 103 Puff in ity of mcg/actuati 00:00: the [place] on aerosol 00 morning Medica l powder and 1 Puff Branch in the evening. Budesonide 3- No [id number] 1{puff} Inhale 1 Univers 90 8-08 03-04 103 Puff in ity of mcg/actuati 00:00: 00:00 the [place] on aerosol 00 :00 morning Medica l powder and 1 Puff Branch in the evening. Budesonide 2022- No [id number] 1{puff} Inhale 1 Univers 90 8-08 03-04 103 Puff in ity of mcg/actuati 00:00: 00:00 the [place] on aerosol 00 :00 morning Medica l [...] ( Branch VITAMIN ORAL) Yes Take by [facility] s vit 7-11 mouth. ity of no.124/iron 15:57: [place] /folic 30 Medical ( Branch VITAMIN ORAL) Immunizations Ordered Filled Immunization Date Status Comments [facility] e Immunization Name Name [facility] 2022-06-06 Completed University of 00:00:00 [place] [id number] 2022-06-06 Completed University of 00:00:00 [facility] 2022-06-06 Completed University of 00:00:00 [facility] 2022-06-06 Completed University of 00:00:00 [facility] 2022-06-06 Completed University of 00:00:00 [place] [address] 2022-06-06 Completed University of 00:00:00 [facility] 2022-06-06 Completed University of 00:00:00 [place] [address] 2022-04-26 Completed University of 00:00:00 [facility] Varicella 2022-04-26 Completed University of (varivax)(chicken 00:00:00 [place] M edical pox) Branch [facility] 2022-04-26 Completed University of 00:00:00 [facility] Varicella 2022-04-26 Completed University of (varivax)(chicken 00:00:00 [place] M edical pox) Branch [facility] 2022-04-26 Completed University of 00:00:00 [facility] Varicella 2022-04-26 Completed University of (varivax)(chicken 00:00:00 [place] M edical pox) Branch [facility] 2022-04-26 Completed University of 00:00:00 [facility] Varicella 2022-04-26 Completed University of (varivax)(chicken 00:00:00 [place] M edical pox) Branch [facility] 2022-04-26 Completed University of 00:00:00 [facility] Varicella 2022-04-26 Completed University of (varivax)(chicken 00:00:00 [place] M edical pox) Branch [facility] 2022-04-26 Completed University of 00:00:00 [facility] Varicella 2022-04-26 Completed University of (varivax)(chicken 00:00:00 [place] M edical pox) Branch [facility] 2022-04-26 Completed University of 00:00:00 [facility] Varicella 2022-04-26 Completed University of (varivax)(chicken 00:00:00 [place] M edical pox) Branch [facility] 2022-04-26 Completed University of 00:00:00 [facility] Varicella 2022-04-26 Completed University of (varivax)(chicken 00:00:00 [place] M edical pox) Branch [facility] 2022-04-26 Completed University of 00:00:00 [facility] Varicella 2022-04-26 Completed University of (varivax)(chicken 00:00:00 [place] M edical pox) Branch [facility] 2022-04-26 Completed University of 00:00:00 [facility] Varicella 2022-04-26 Completed University of (varivax)(chicken 00:00:00 [place] M edical pox) Branch [facility] 2022-04-26 Completed University of 00:00:00 [facility] Varicella 2022-04-26 Completed University of (varivax)(chicken 00:00:00 [place] M edical pox) Branch [facility] 2022-04-26 Completed University of 00:00:00 [facility] Varicella 2022-04-26 Completed University of (varivax)(chicken 00:00:00 [place] M edical pox) Branch [facility] 2022-04-26 Completed University of 00:00:00 [facility] Varicella 2022-04-26 Completed University of (varivax)(chicken 00:00:00 [place] M edical pox) Branch [facility] 2022-04-26 Completed University of 00:00:00 [facility] Varicella 2022-04-26 Completed University of (varivax)(chicken 00:00:00 [place] M edical pox) Branch [facility] 2022-04-26 Completed University of 00:00:00 [facility] Varicella 2022-04-26 Completed University of (varivax)(chicken 00:00:00 [place] M edical pox) Branch [facility] 2022-04-26 Completed University of 00:00:00 [facility] Varicella 2022-04-26 Completed University of (varivax)(chicken 00:00:00 [place] M edical pox) Branch [facility] 2022-04-26 Completed University of 00:00:00 [facility] Varicella 2022-04-26 Completed University of (varivax)(chicken 00:00:00 [place] M edical pox) Branch HPV9 2022-04-26 Completed University of 00:00:00 [facility] Varicella 2022-04-26 Completed University of (varivax)(chicken 00:00:00 [place] M edical pox) Branch HPV9 2022-04-26 Completed University of 00:00:00 [facility] Varicella 2022-04-26 Completed University of (varivax)(chicken 00:00:00 [place] M edical pox) Branch HPV9 2022-04-26 Completed University of 00:00:00 [facility] Varicella 2022-04-26 Completed University of (varivax)(chicken 00:00:00 [place] M edical pox) Branch TDAP 2022-01-31 Completed University of 00:00:00 [facility] TDAP 2022-01-31 Completed University of 00:00:00 [facility] TDAP 2022-01-31 Completed University of 00:00:00 [facility] TDAP 2022-01-31 Completed University of 00:00:00 [facility] TDAP 2022-01-31 Completed University of 00:00:00 [facility] TDAP 2022-01-31 Completed University of 00:00:00 [facility] TDAP 2022-01-31 Completed University of 00:00:00 [facility] TDAP 2022-01-31 Completed University of 00:00:00 [facility] TDAP 2022-01-31 Completed University of 00:00:00 [facility] TDAP 2022-01-31 Completed University of 00:00:00 [facility] TDAP 2022-01-31 Completed University of 00:00:00 [facility] TDAP 2022-01-31 Completed University of 00:00:00 [facility] TDAP 2022-01-31 Completed University of 00:00:00 [facility] TDAP 2022-01-31 Completed University of 00:00:00 [facility] TDAP 2022-01-31 Completed University of 00:00:00 [facility] TDAP 2022-01-31 Completed University of 00:00:00 [facility] TDAP 2022-01-31 Completed University of 00:00:00 [facility] TDAP 2022-01-31 Completed University of 00:00:00 [place] [facility] TDAP 2022-01-31 Completed University of 00:00:00 [place] [facility] TDAP 2022-01-31 Completed University of 00:00:00 [place] [facility] TDAP 2022-01-31 Completed University of 00:00:00 [place] [facility] TDAP 2022-01-31 Completed University of 00:00:00 [place] [facility] TDAP 2022-01-31 Completed University of 00:00:00 [place] [facility] TDAP 2022-01-31 Completed University of 00:00:00 [place] [facility] TDAP 2022-01-31 Completed University of 00:00:00 [place] [facility] TDAP 2022-01-31 Completed [facility] 00:00:00 [facility] TDAP 2022-01-31 Completed [facility] 00:00:00 [facility] TDAP 2022-01-31 Completed [facility] 00:00:00 [facility] TDAP 2022-01-31 Completed [facility] 00:00:00 [facility] TDAP 2022-01-31 Completed [facility] 00:00:00 [facility] TDAP 2022-01-31 Completed [facility] 00:00:00 [facility] TDAP 2022-01-31 Completed [facility] 00:00:00 [facility] TDAP 2022-01-31 Completed [facility] of 00:00:00 [facility] TDAP 2022-01-31 Completed [facility] 00:00:00 [facility] TDAP 2022-01-31 Completed [facility] 00:00:00 [facility] TDAP 2022-01-31 Completed [facility] 00:00:00 [facility] TDAP 2022-01-31 Completed [facility] 00:00:00 [facility] TDAP 2022-01-31 Completed [facility] 00:00:00 [facility] TDAP 2022-01-31 Completed [facility] 00:00:00 [facility] TDAP 2022-01-31 Completed [facility] 00:00:00 [facility] TDAP 2022-01-31 Completed [facility] 00:00:00 [facility] TDAP 2022-01-31 Completed [facility] of 00:00:00 [facility] TDAP 2022-01-31 Completed [facility] 00:00:00 [facility] TDAP 2022-01-31 Completed [facility] of 00:00:00 [facility] TDAP 2022-01-31 Completed University of 00:00:00 [facility] TDAP 2022-01-31 Completed [facility] of 00:00:00 [facility] TDAP 2022-01-31 Completed [facility] 00:00:00 [facility] TDAP 2022-01-31 Completed [facility] of 00:00:00 [facility] TDAP 2022-01-31 Completed [facility] 00:00:00 [facility] [place] TDAP 2022-01-31 Completed [facility] 00:00:00 [facility] [place] TDAP 2022-01-31 Completed [facility] of 00:00:00 [facility] TDAP 2022-01-31 Completed University of 00:00:00 [facility] TDAP 2022-01-31 Completed University of 00:00:00 [facility] SARS-COV-2 COVID-19 2020-11-23 Completed Unive rsity of PFIZER VACCINE 00:00:00 [facility] SARS-COV-2 COVID-19 2020-11-23 Completed Unive rsity of PFIZER VACCINE 00:00:00 [facility] SARS-COV-2 COVID-19 2020-11-23 Completed Unive rsity of PFIZER VACCINE 00:00:00 [facility] SARS-COV-2 COVID-19 2020-11-23 Completed Unive rsity of PFIZER VACCINE 00:00:00 [facility] SARS-COV-2 COVID-19 2020-11-23 Completed Unive rsity of PFIZER VACCINE 00:00:00 [facility] SARS-COV-2 COVID-19 2020-11-23 Completed Unive rsity of PFIZER VACCINE 00:00:00 [facility] SARS-COV-2 COVID-19 2020-11-23 Completed Unive rsity of PFIZER VACCINE 00:00:00 [facility] SARS-COV-2 COVID-19 2020-11-02 Completed Unive rsity of PFIZER VACCINE 00:00:00 [facility] SARS-COV-2 COVID-19 2020-11-02 Completed Unive rsity of PFIZER VACCINE 00:00:00 [facility] SARS-COV-2 COVID-19 2020-11-02 Completed Unive rsity of PFIZER VACCINE 00:00:00 [facility] SARS-COV-2 COVID-19 2020-11-02 Completed Unive rsity of PFIZER VACCINE 00:00:00 [facility] SARS-COV-2 COVID-19 2020-11-02 Completed Unive rsity of PFIZER VACCINE 00:00:00 [facility] SARS-COV-2 COVID-19 2020-11-02 Completed Unive rsity of PFIZER VACCINE 00:00:00 [facility] SARS-COV-2 COVID-19 2020-11-02 Completed Unive rsity of PFIZER VACCINE 00:00:00 [facility] DTaP, Unspecified 2004-07-11 Completed Univers ity of Formulation 00:00:00 [facility] HIB 4 Dose Schedule 2004-07-11 Completed Unive rsity of 00:00:00 [facility] MMR 2004-07-11 Completed University of 00:00:00 [facility] IPV 2004-07-11 Completed University of 00:00:00 [facility] DTaP, Unspecified 2004-07-11 Completed Univers ity of Formulation 00:00:00 [facility] HIB 4 Dose Schedule 2004-07-11 Completed Unive rsity of 00:00:00 [facility] MMR 2004-07-11 Completed University of 00:00:00 [facility] IPV 2004-07-11 Completed University of 00:00:00 [facility] DTaP, Unspecified 2004-07-11 Completed Univers ity of Formulation 00:00:00 [facility] HIB 4 Dose Schedule 2004-07-11 Completed Unive rsity of 00:00:00 [facility] MMR 2004-07-11 Completed University of 00:00:00 [facility] IPV 2004-07-11 Completed University of 00:00:00 [facility] DTaP, Unspecified 2004-07-11 Completed Univers ity of Formulation 00:00:00 [facility] HIB 4 Dose Schedule 2004-07-11 Completed Unive rsity of 00:00:00 [facility] MMR 2004-07-11 Completed University of 00:00:00 [facility] IPV 2004-07-11 Completed [facility] of 00:00:00 [facility] DTaP, Unspecified 2004-07-11 Completed Univers ity of Formulation 00:00:00 [facility] HIB 4 Dose Schedule 2004-07-11 Completed Unive rsity of 00:00:00 [facility] MMR 2004-07-11 Completed University of 00:00:00 [facility] IPV 2004-07-11 Completed [facility] 00:00:00 [facility] DTaP, Unspecified 2004-07-11 Completed Univers ity of Formulation 00:00:00 [facility] HIB 4 Dose Schedule 2004-07-11 Completed Unive rsity of 00:00:00 [facility] MMR 2004-07-11 Completed University of 00:00:00 [facility] IPV 2004-07-11 Completed [facility] of 00:00:00 [facility] DTaP, Unspecified 2004-07-11 Completed Univers ity of Formulation 00:00:00 [facility] HIB 4 Dose Schedule 2004-07-11 Completed Unive rsity of 00:00:00 [facility] MMR 2004-07-11 Completed [facility] of 00:00:00 [facility] IPV 2004-07-11 Completed [facility] of 00:00:00 [facility] DTaP, Unspecified 2003-02-03 Completed Univers ity of Formulation 00:00:00 [facility] Hep B, Adol or Pedi 2003-02-03 Completed Unive rsity of Dosage 00:00:00 [facility] IPV 2003-02-03 Completed [facility] of 00:00:00 [facility] DTaP, Unspecified 2003-02-03 Completed Univers ity of Formulation 00:00:00 [facility] Hep B, Adol or Pedi 2003-02-03 Completed Unive rsity of Dosage 00:00:00 [facility] IPV 2003-02-03 Completed [facility] of 00:00:00 [facility] DTaP, Unspecified 2003-02-03 Completed Univers ity of Formulation 00:00:00 [facility] Hep B, Adol or Pedi 2003-02-03 Completed Unive rsity of Dosage 00:00:00 [facility] IPV 2003-02-03 Completed [facility] of 00:00:00 [facility] DTaP, Unspecified 2003-02-03 Completed Univers ity of Formulation 00:00:00 [facility] Hep B, Adol or Pedi 2003-02-03 Completed Unive rsity of Dosage 00:00:00 [facility] IPV 2003-02-03 Completed [facility] of 00:00:00 [facility] DTaP, Unspecified 2003-02-03 Completed Univers ity of Formulation 00:00:00 [facility] Hep B, Adol or Pedi 2003-02-03 Completed Unive rsity of Dosage 00:00:00 [facility] IPV 2003-02-03 Completed [facility] 00:00:00 [facility] DTaP, Unspecified 2003-02-03 Completed Univers ity of Formulation 00:00:00 [facility] Hep B, Adol or Pedi 2003-02-03 Completed Unive rsity of Dosage 00:00:00 [facility] IPV 2003-02-03 Completed [facility] 00:00:00 [facility] DTaP, Unspecified 2003-02-03 Completed Univers ity of Formulation 00:00:00 [facility] Hep B, Adol or Pedi 2003-02-03 Completed Unive rsity of Dosage 00:00:00 [facility] IPV 2003-02-03 Completed [facility] 00:00:00 [facility] DTaP, Unspecified 2002-07-27 Completed Univers ity of Formulation 00:00:00 [facility] Hep B, Adol or Pedi 2002-07-27 Completed Unive rsity of Dosage 00:00:00 [facility] HIB 4 Dose Schedule 2002-07-27 Completed Unive rsity of 00:00:00 [facility] IPV 2002-07-27 Completed [facility] 00:00:00 [facility] DTaP, Unspecified 2002-07-27 Completed Univers ity of Formulation 00:00:00 [facility] Hep B, Adol or Pedi 2002-07-27 Completed Unive rsity of Dosage 00:00:00 [facility] HIB 4 Dose Schedule 2002-07-27 Completed Unive rsity of 00:00:00 [facility] IPV 2002-07-27 Completed [facility] of 00:00:00 [facility] DTaP, Unspecified 2002-07-27 Completed Univers ity of Formulation 00:00:00 [facility] Hep B, Adol or Pedi 2002-07-27 Completed Unive rsity of Dosage 00:00:00 [facility] HIB 4 Dose Schedule 2002-07-27 Completed Unive rsity of 00:00:00 [facility] IPV 2002-07-27 Completed [facility] 00:00:00 [facility] DTaP, Unspecified 2002-07-27 Completed [facility] ity of Formulation 00:00:00 [facility] Hep B, Adol or Pedi 2002-07-27 Completed Unive rsity of Dosage 00:00:00 [facility] HIB 4 Dose Schedule 2002-07-27 Completed Unive rsity of 00:00:00 [facility] IPV 2002-07-27 Completed [facility] of 00:00:00 [facility] DTaP, Unspecified 2002-07-27 Completed Univers ity of Formulation 00:00:00 [facility] Hep B, Adol or Pedi 2002-07-27 Completed Unive rsity of Dosage 00:00:00 [facility] HIB 4 Dose Schedule 2002-07-27 Completed Unive rsity of 00:00:00 [facility] IPV 2002-07-27 Completed [facility] of 00:00:00 [facility] DTaP, Unspecified 2002-07-27 Completed Univers ity of Formulation 00:00:00 [facility] Hep B, Adol or Pedi 2002-07-27 Completed Unive rsity of Dosage 00:00:00 [facility] HIB 4 Dose Schedule 2002-07-27 Completed Unive rsity of 00:00:00 [facility] IPV 2002-07-27 Completed [facility] of 00:00:00 [facility] DTaP, Unspecified 2002-07-27 Completed Univers ity of Formulation 00:00:00 [facility] Hep B, Adol or Pedi 2002-07-27 Completed Unive rsity of Dosage 00:00:00 [facility] HIB 4 Dose Schedule 2002-07-27 Completed Unive rsity of 00:00:00 [facility] IPV 2002-07-27 Completed [facility] of 00:00:00 [facility] DTaP, Unspecified 2002-06-23 Completed Univers ity of Formulation 00:00:00 [facility] HEPATITIS A 2002-06-23 Completed [facility] of 00:00:00 [facility] Hep B, Adol or Pedi 2002-06-23 Completed Unive rsity of Dosage 00:00:00 [facility] HIB 4 Dose Schedule 2002-06-23 Completed Unive rsity of 00:00:00 [facility] MMR 2002-06-23 Completed University of 00:00:00 [facility] Pneumococcal 7 2002-06-23 Completed University of Conjugate, PCV7 00:00:00 [facility] (Prevnar[facility]) [facility] Varicella 2002-06-23 Completed University of (varivax)(chicken 00:00:00 [facility] pox) [facility] IPV 2002-06-23 Completed [facility] 00:00:00 [facility] DTaP, Unspecified 2002-06-23 Completed Univers ity of Formulation 00:00:00 [facility] HEPATITIS A 2002-06-23 Completed [facility] of 00:00:00 [facility] Hep B, Adol or Pedi 2002-06-23 Completed Unive rsity of Dosage 00:00:00 [facility] HIB 4 Dose Schedule 2002-06-23 Completed Unive rsity of 00:00:00 [facility] MMR 2002-06-23 Completed University of 00:00:00 [facility] Pneumococcal 7 2002-06-23 Completed University of Conjugate, PCV7 00:00:00 [facility] (Prevnar7) [facility] Varicella 2002-06-23 Completed [facility] of (varivax)(chicken 00:00:00 [facility] pox) [facility] IPV 2002-06-23 Completed [facility] of 00:00:00 [facility] DTaP, Unspecified 2002-06-23 Completed Univers ity of Formulation 00:00:00 [facility] HEPATITIS A 2002-06-23 Completed [facility] of 00:00:00 [facility] Hep B, Adol or Pedi 2002-06-23 Completed Unive rsity of Dosage 00:00:00 [facility] HIB 4 Dose Schedule 2002-06-23 Completed Unive rsity of 00:00:00 [facility] MMR 2002-06-23 Completed [facility] of 00:00:00 [facility] Pneumococcal 7 2002-06-23 Completed University of Conjugate, PCV7 00:00:00 [facility] (Prevnar7) [facility] Varicella 2002-06-23 Completed [facility] (varivax)(chicken 00:00:00 [facility] pox) [facility] IPV 2002-06-23 Completed [facility] of 00:00:00 [facility] DTaP, Unspecified 2002-06-23 Completed Univers ity of Formulation 00:00:00 [facility] HEPATITIS A 2002-06-23 Completed [facility] of 00:00:00 [facility] Hep B, Adol or Pedi 2002-06-23 Completed Unive rsity of Dosage 00:00:00 [facility] HIB 4 Dose Schedule 2002-06-23 Completed Unive rsity of 00:00:00 [facility] MMR 2002-06-23 Completed University of 00:00:00 [facility] Pneumococcal 7 2002-06-23 Completed University of Conjugate, PCV7 00:00:00 [facility] (Prevnar7) [facility] Varicella 2002-06-23 Completed [facility] of (varivax)(chicken 00:00:00 [place] [facility] pox) [facility] IPV 2002-06-23 Completed [facility] of 00:00:00 [facility] DTaP, Unspecified 2002-06-23 Completed Univers ity of Formulation 00:00:00 [facility] HEPATITIS A 2002-06-23 Completed [facility] of 00:00:00 [facility] Hep B, Adol or Pedi 2002-06-23 Completed Unive rsity of Dosage 00:00:00 [facility] HIB 4 Dose Schedule 2002-06-23 Completed Unive rsity of 00:00:00 [facility] MMR 2002-06-23 Completed University of 00:00:00 [facility] Pneumococcal 7 2002-06-23 Completed University of Conjugate, PCV7 00:00:00 [facility] (Prevnar7) [facility] Varicella 2002-06-23 Completed [facility] of (varivax)(chicken 00:00:00 [facility] pox) [facility] IPV 2002-06-23 Completed [facility] of 00:00:00 [facility] DTaP, Unspecified 2002-06-23 Completed Univers ity of Formulation 00:00:00 [facility] HEPATITIS A 2002-06-23 Completed [facility] of 00:00:00 [facility] Hep B, Adol or Pedi 2002-06-23 Completed Unive rsity of Dosage 00:00:00 [facility] HIB 4 Dose Schedule 2002-06-23 Completed Unive rsity of 00:00:00 [facility] MMR 2002-06-23 Completed University of 00:00:00 [facility] Pneumococcal 7 2002-06-23 Completed University of Conjugate, PCV7 00:00:00 [facility] (Prevnar7) [facility] Varicella 2002-06-23 Completed [facility] of (varivax)(chicken 00:00:00 [facility] [place] [facility] pox) [facility] IPV 2002-06-23 Completed [facility] of 00:00:00 [facility] DTaP, Unspecified 2002-06-23 Completed Univers ity of Formulation 00:00:00 [facility] HEPATITIS A 2002-06-23 Completed [facility] of 00:00:00 [facility] Hep B, Adol or Pedi 2002-06-23 Completed Unive rsity of Dosage 00:00:00 [facility] HIB 4 Dose Schedule 2002-06-23 Completed Unive rsity of 00:00:00 [facility] MMR 2002-06-23 Completed University of 00:00:00 [facility] Pneumococcal 7 2002-06-23 Completed University of Conjugate, PCV7 00:00:00 [facility] ical (Prevnar7) Branch Varicella 2002-06-23 Completed University of (varivax)(chicken 00:00:00 [place] [facility] pox) [facility] IPV 2002-06-23 Completed [facility] of 00:00:00 [facility] Hep B, Adol or Pedi 2001-07-27 Completed Unive rsity of Dosage 00:00:00 [facility] Hep B, Adol or Pedi 2001-07-27 Completed Unive rsity of Dosage 00:00:00 [facility] Hep B, Adol or Pedi 2001-07-27 Completed Unive rsity of Dosage 00:00:00 [facility] Hep B, Adol or Pedi 2001-07-27 Completed Unive rsity of Dosage 00:00:00 [facility] Hep B, Adol or Pedi 2001-07-27 Completed Unive rsity of Dosage 00:00:00 [facility] Hep B, Adol or Pedi 2001-07-27 Completed Unive rsity of Dosage 00:00:00 [facility] Hep B, Adol or Pedi 2001-07-27 Completed Unive rsity of Dosage 00:00:00 [facility] Varicella 2001-06-23 Completed University of (varivax)(chicken 00:00:00 [facility] pox) [facility] Varicella 2001-06-23 Completed [facility] of (varivax)(chicken 00:00:00 [facility] pox) [facility] Varicella 2001-06-23 Completed [facility] of (varivax)(chicken 00:00:00 [facility] pox) [facility] Varicella 2001-06-23 Completed [facility] of (varivax)(chicken 00:00:00 [facility] pox) [facility] Varicella 2001-06-23 Completed [facility] of (varivax)(chicken 00:00:00 [facility] pox) [facility] Varicella 2001-06-23 Completed [facility] (varivax)(chicken 00:00:00 [facility] pox) [facility] Varicella 2001-06-23 Completed [facility] (varivax)(chicken 00:00:00 [place] [facility] pox) [facility] Hep B, Adol or Pedi 1999 Completed Unive rsity of Dosage 00:00:00 [facility] Hep B, Adol or Pedi 1999 Completed Unive rsity of Dosage 00:00:00 [facility] Hep B, Adol or Pedi 1999 Completed Unive rsity of Dosage 00:00:00 [facility] Hep B, Adol or Pedi 1999 Completed Unive rsity of Dosage 00:00:00 [facility] Hep B, Adol or Pedi 1999 Completed Unive rsity of Dosage 00:00:00 [facility] Hep B, Adol or Pedi 1999 Completed Unive rsity of Dosage 00:00:00 [facility] Hep B, Adol or Pedi 1999 Completed Unive rsity of Dosage 00:00:00 [facility] Vital Signs Vital Name Observation Time Observation Value Comments Source Systolic blood 2022-07-11 21:46:00 132 mm[Hg] Univer sity of pressure [facility] Diastolic blood 2022-07-11 21:46:00 97 mm[Hg] Unive rsity of pressure [facility] Heart rate 2022-07-11 21:46:00 89 /min [facility] Body temperature 2022-07-11 21:46:00 [address] [facility] 2022-07-11 21:46:00 22 /min [facility] Body height 2022-07-11 21:46:00 157.5 cm [facility] Body weight 2022-07-11 21:46:00 53.071 kg [facility] BMI 2022-07-11 21:46:00 21.40 kg/m2 [facility] Oxygen saturation in 2022-07-11 21:46:00 100 /min [facility] Arterial blood by [facility] Pulse oximetry Branch Systolic blood 2022-06-12 14:58:00 97 mm[Hg] Univer sity of pressure [facility] Diastolic blood 2022-06-12 14:58:00 61 mm[Hg] Unive rsity of pressure [facility] Heart rate 2022-06-12 14:58:00 86 /min [facility] Body temperature 2022-06-12 14:58:00 36.67 Marycruz [facility] ers[facility] Respiratory rate 2022-06-12 14:58:00 18 /min Univ ers[facility] of [facility] Body height 2022-06-12 14:58:00 157.5 cm [facility] Body weight 2022-06-12 14:58:00 55.52 kg [facility] BMI 2022-06-12 14:58:00 22.39 kg/m2 [facility] Oxygen saturation in 2022-06-12 14:58:00 98 /min University of Arterial blood by [facility] Pulse oximetry Branch Systolic blood 2022-06-06 15:56:00 121 mm[Hg] Univer sity of pressure [facility] Diastolic blood 2022-06-06 15:56:00 78 mm[Hg] Unive rsity of pressure [facility] Heart rate 2022-06-06 15:56:00 85 /min [facility] Body temperature 2022-06-06 15:56:00 36.11 Marycruz [facility] ers[facility] of [facility] Respiratory rate 2022-06-06 15:56:00 18 /min Univ ersity of [facility] Body height 2022-06-06 15:56:00 157.5 cm [facility] Body weight 2022-06-06 15:56:00 54.704 kg [facility] BMI 2022-06-06 15:56:00 22.06 kg/m2 [facility] Systolic blood 2022-05-23 15:33:00 126 mm[Hg] Univer sity of pressure [facility] Diastolic blood 2022-05-23 15:33:00 89 mm[Hg] Unive rsity of pressure [facility] Heart rate 2022-05-23 15:33:00 92 /min [facility] Body temperature 2022-05-23 15:33:00 36.17 Marycruz [facility] Respiratory rate 2022-05-23 15:33:00 18 /min Univ ersity of [facility] Body height 2022-05-23 15:33:00 157.5 cm [facility] Body weight 2022-05-23 15:33:00 57.153 kg [facility] BMI 2022-05-23 15:33:00 23.05 kg/m2 [facility] Oxygen saturation in 2022-05-23 15:33:00 98 /min r/a University of Arterial blood by [employer] Pulse oximetry Branch Systolic blood 2022-05-16 15:18:00 132 mm[Hg] Univer sity of pressure [facility] Diastolic blood 2022-05-16 15:18:00 78 mm[Hg] Unive rsity of pressure [facility] Heart rate 2022-05-16 15:18:00 83 /min [facility] Body temperature 2022-05-16 15:18:00 35.94 Marycruz [facility] Respiratory rate 2022-05-16 15:18:00 18 /min Univ ersity of [facility] Body height 2022-05-16 15:18:00 157.5 cm [facility] Body weight 2022-05-16 15:18:00 58.015 kg [facility] BMI 2022-05-16 15:18:00 23.39 kg/m2 [facility] Systolic blood 2022-05-12 15:38:00 124 mm[Hg] Univer sity of pressure [facility] Diastolic blood 2022-05-12 15:38:00 86 mm[Hg] Unive rsity of pressure [facility] Heart rate 2022-05-12 15:38:00 72 /min [facility] Respiratory rate 2022-05-12 15:38:00 18 /min Univ ersity of [facility] Body height 2022-05-12 15:38:00 157.5 cm [facility] Body weight 2022-05-12 15:38:00 58.06 kg [facility] BMI 2022-05-12 15:38:00 23.41 kg/m2 [facility] Oxygen saturation in 2022-05-12 15:38:00 97 /min University of Arterial blood by [employer] vipin Pulse oximetry Branch Heart rate 2022-05-06 14:11:00 88 /min [facility] Body temperature 2022-05-06 14:11:00 36.78 Marycruz [facility] Respiratory rate 2022-05-06 14:11:00 18 /min [facility] Body height 2022-05-06 14:11:00 157.5 cm [facility] Body weight 2022-05-06 14:11:00 58.151 kg [facility] BMI 2022-05-06 14:11:00 23.45 kg/m2 [facility] Systolic blood 2022-05-06 14:11:00 136 mm[Hg] [facility] Diastolic blood 2022-05-06 14:11:00 84 mm[Hg] Unive [facility] Systolic blood 2022-05-02 15:48:00 130 mm[Hg] manual [facility] Diastolic blood 2022-05-02 15:48:00 92 mm[Hg] manual Unive [facility] Heart rate 2022-05-02 15:40:00 86 /min [facility] Body temperature 2022-05-02 15:40:00 36.72 Marycruz [facility] Respiratory rate 2022-05-02 15:40:00 20 /min [facility] Body height 2022-05-02 15:40:00 157.5 cm [facility] Body weight 2022-05-02 15:40:00 59.33 kg [facility] BMI 2022-05-02 15:40:00 23.92 kg/m2 [facility] Systolic blood 2022-04-27 02:33:00 136 mm[Hg] [facility] Diastolic blood 2022-04-27 02:33:00 86 mm[Hg] [facility] Heart rate 2022-04-27 02:33:00 90 /min [facility] Body temperature 2022-04-27 02:33:00 35.83 Marycruz [facility] Respiratory rate 2022-04-27 02:33:00 18 /min [facility] Oxygen saturation in 2022-04-27 02:33:00 95 /min [facility] Arterial blood by [facility] Pulse oxim[facility] Branch Body weight 2022-04-24 00:00:00 67.132 kg [facility] [place] [facility] [place] BMI 2022-04-24 00:00:00 27.07 kg/m2 [facility] [place] [facility] [place] Heart rate 2022-04-25 08:30:00 120 /min [facility] [place] Oxygen saturation in 2022-04-25 08:30:00 100 /min [facility] Arterial blood by [facility] P[facility]xim[facility] Systolic blood 2022-04-25 08:20:00 128 mm[Hg] [facility] [place] [facility] [place] Diastolic blood 2022-04-25 08:20:00 81 mm[Hg] Unive rsity of [facility] [place] Body temperature 2022-04-25 08:00:00 37.28 Marycruz [facility] of [facility] Respiratory rate 2022-04-25 08:00:00 16 /min [facility] [place] [facility] [place] Body weight 2022-04-24 00:00:00 67.132 kg [facility] BMI 2022-04-24 00:00:00 27.07 kg/m2 [facility] Systolic blood 2022-04-23 14:03:00 134 mm[Hg] [facility] Diastolic blood 2022-04-23 14:03:00 86 mm[Hg] Unive rsity of [facility] Heart rate 2022-04-23 14:00:00 72 /min [facility] [place] [facility] [place] Body temperature 2022-04-23 14:00:00 36.72 Marycruz [facility] Respiratory rate 2022-04-23 14:00:00 20 /min [facility] Body height 2022-04-23 14:00:00 157.5 cm [facility] Body weight 2022-04-23 14:00:00 66.134 kg [facility] BMI 2022-04-23 14:00:00 26.67 kg/m2 [facility] Systolic blood 2022-04-16 19:05:00 136 mm[Hg] [facility] Diastolic blood 2022-04-16 19:05:00 89 mm[Hg] [facility] Heart rate 2022-04-16 19:05:00 75 /min [facility] Body temperature 2022-04-16 19:05:00 36.56 Marycruz [facility] Respiratory rate 2022-04-16 19:05:00 17 /min [facility] Body height 2022-04-16 19:05:00 154.9 cm [facility] Body weight 2022-04-16 19:05:00 65.953 kg [facility] BMI 2022-04-16 19:05:00 27.47 kg/m2 [facility] Systolic blood 2022-04-08 14:53:00 132 mm[Hg] [facility] Diastolic blood 2022-04-08 14:53:00 82 mm[Hg] [facility] Heart rate 2022-04-08 14:53:00 82 /min [facility] Body temperature 2022-04-08 14:53:00 36.11 Marycruz [facility] Respiratory rate 2022-04-08 14:53:00 18 /min [facility] Body height 2022-04-08 14:53:00 154.9 [...] 2022-03-25 15:22:00 18 /min [facility] Body height 2022-03-25 15:22:00 157.5 cm [facility] Body weight 2022-03-25 15:22:00 63.413 kg [facility] BMI 2022-03-25 15:22:00 25.57 kg/m2 [facility] Systolic blood 2022-03-13 19:20:00 129 mm[Hg] [facility] Diastolic blood 2022-03-13 19:20:00 82 mm[Hg] [facility] Heart rate 2022-03-13 19:20:00 80 /min [facility] Body temperature 2022-03-13 19:20:00 36.72 Marycruz [facility] Respiratory rate 2022-03-13 19:20:00 18 /min [facility] Body height 2022-03-13 19:20:00 157.5 cm [facility] Body weight 2022-03-13 19:20:00 63.617 kg [facility] BMI 2022-03-13 19:20:00 25.65 kg/m2 [facility] Systolic blood 2022-02-27 14:27:00 118 mm[Hg] [facility] Diastolic blood 2022-02-27 14:27:00 64 mm[Hg] [facility]ive [facility] Heart rate 2022-02-27 14:27:00 67 /min [facility] Body temperature 2022-02-27 14:27:00 36.56 Marycruz [facility] Respiratory rate 2022-02-27 14:27:00 18 /min [facility] Body height 2022-02-27 14:27:00 157.5 cm [facility] Body weight 2022-02-27 14:27:00 62.738 kg [facility] BMI 2022-02-27 14:27:00 25.30 kg/m2 [facility] Systolic blood 2022-02-14 20:24:00 113 mm[Hg] [facility] Diastolic blood 2022-02-14 20:24:00 71 mm[Hg] [facility] Heart rate 2022-02-14 20:24:00 70 /min [facility] Body temperature 2022-02-14 20:24:00 36.67 Marycruz [facility] Respiratory rate 2022-02-14 20:24:00 18 /min [facility] Body height 2022-02-14 20:24:00 157.5 cm [facility] Body weight 2022-02-14 20:24:00 63.231 kg [facility] BMI 2022-02-14 20:24:00 25.50 kg/m2 [facility] Systolic blood 2022-02-06 01:21:00 112 mm[Hg] [facility] Diastolic blood 2022-02-06 01:21:00 66 mm[Hg] [facility] Heart rate 2022-02-06 01:21:00 70 /min [facility] Body temperature 2022-02-06 01:21:00 36.89 Marycruz [facility] Respiratory rate 2022-02-06 01:21:00 18 /min [facility] Oxygen saturation in 2022-02-06 01:21:00 100 /min [facility] Arterial blood by [employer] vip[facility] P[facility] o[facility] Body height 2022-02-05 21:58:00 157.5 cm [facility] Body weight 2022-02-05 21:58:00 62.234 kg [facility] BMI 2022-02-05 21:58:00 25.09 kg/m2 [facility] Heart rate 2022-02-02 23:26:00 75 /min [facility] Body temperature 2022-02-02 23:26:00 36.61 Marycruz [facility] Respiratory rate 2022-02-02 23:26:00 18 /min [facility] Oxygen saturation in 2022-02-02 23:15:00 97 /min [facility] Arterial blood by [employer] vip[facility] Systolic blood 2022-02-02 22:45:00 122 mm[Hg] [facility] Diastolic blood 2022-02-02 22:45:00 80 mm[Hg] [facility]ive [facility] Body height 2022-02-02 22:30:00 157.5 cm [facility] Body weight 2022-02-02 22:30:00 62.143 kg [facility] BMI 2022-02-02 22:30:00 25.06 kg/m2 [facility] Systolic blood 2022-01-31 15:44:00 117 mm[Hg] [facility] Diastolic blood 2022-01-31 15:44:00 68 mm[Hg] [facility]ive [facility] Heart rate 2022-01-31 15:44:00 73 /min [facility] Body temperature 2022-01-31 15:44:00 36.89 Marycruz [facility] Respiratory rate 2022-01-31 15:44:00 18 /min [facility] Body height 2022-01-31 15:44:00 154.9 cm [facility] Body weight 2022-01-31 15:44:00 61.434 kg [facility] BMI 2022-01-31 15:44:00 25.59 kg/m2 [facility] Systolic blood 2022-01-02 17:12:00 100 mm[Hg] [facility] Diastolic blood 2022-01-02 17:12:00 66 mm[Hg] Unive [facility] Heart rate 2022-01-02 17:12:00 84 /min [facility] Body temperature 2022-01-02 17:12:00 36.72 Marycruz [facility] Respiratory rate 2022-01-02 17:12:00 20 /min [facility] Body height 2022-01-02 17:12:00 154.9 cm [facility] Body weight 2022-01-02 17:12:00 59.194 kg [facility] BMI 2022-01-02 17:12:00 24.66 kg/m2 [facility] Systolic blood 2021-12-11 01:13:00 111 mm[Hg] [facility] Diastolic blood 2021-12-11 01:13:00 67 mm[Hg] Unive [facility] Heart rate 2021-12-11 01:13:00 88 /min [facility] Body temperature 2021-12-11 01:13:00 36.61 Marycruz [facility] Respiratory rate 2021-12-11 01:13:00 18 /min [facility] Body height 2021-12-11 01:13:00 154.9 cm [facility] Body weight 2021-12-11 01:13:00 58.514 kg [facility] BMI 2021-12-11 01:13:00 24.37 kg/m2 [facility] Oxygen saturation in 2021-12-11 01:13:00 100 /min [facility] Arterial blood by [facility] Pulse oxim[facility] Branch Systolic blood 2021-12-02 16:16:00 100 mm[Hg] [facility] Diastolic blood 2021-12-02 16:16:00 66 mm[Hg] [facility]ive [facility] Heart rate 2021-12-02 16:16:00 67 /min [facility] Body temperature 2021-12-02 16:16:00 36.78 Marycruz [facility] Respiratory rate 2021-12-02 16:16:00 18 /min [facility] Body height 2021-12-02 16:16:00 157.5 cm [facility] Body weight 2021-12-02 16:16:00 56.87 kg [facility] BMI 2021-12-02 16:16:00 22.93 kg/m2 [facility] Systolic blood 2021-11-04 18:16:00 119 mm[Hg] [facility] Diastolic blood 2021-11-04 18:16:00 67 mm[Hg] [facility]ive [facility] Heart rate 2021-11-04 18:16:00 82 /min [facility] Body temperature 2021-11-04 18:16:00 36.89 Marycruz [facility] [place] Respiratory rate 2021-11-04 18:16:00 18 /min [facility] Body height 2021-11-04 18:16:00 157.5 cm [facility] [place] [facility] [place] Body weight 2021-11-04 18:16:00 56.246 kg [facility] [place] [facility] [place] BMI 2021-11-04 18:16:00 22.68 kg/m2 Universi ty of [facility] Systolic blood 2021-10-24 20:30:00 105 mm[Hg] Univer sity of pressure [facility] Diastolic blood 2021-10-24 20:30:00 69 mm[Hg] [facility]ive [facility] Heart rate 2021-10-24 20:30:00 81 /min Universi ty of [facility] Body temperature 2021-10-24 20:30:00 37.22 Marycruz [facility] Respiratory rate 2021-10-24 20:30:00 18 /min [facility] Medical [place] Body height 2021-10-24 20:30:00 157.5 cm [facility] [place] [facility] [place] Body weight 2021-10-24 20:30:00 55.747 kg [facility]i [facility] BMI 2021-10-24 20:30:00 22.48 kg/m2 [facility] Procedures Procedure Date / Time Performing Clinician Source Performed CONSENT/REFUSAL FOR 2022-07-11 21:42:17 Doctor Unassigned, [facility] DIAGNOSIS AND TREATMENT [place] GARDASIL 9 (HPV 9V) 2022-06-06 16:20:14 Lian Simms [facility] VACCINE [facility] PATIENT FINANCIAL 2022-06-06 15:35:51 Doctor Unassigned, [facility] POLICY [facility] RHEUMATOID FACTOR 2022-05-23 16:32:00 Carolina [facility] C-REACTIVE PROTEIN 2022-05-23 16:32:00 Carolina [facility] C4 COMPLEMENT 2022-05-23 16:32:00 [facility] ANTI-NUCLEAR ANTIBODY 2022-05-23 16:32:00 [facility] HCV ANTIBODY 2022-05-23 16:32:00 [facility] VITAMIN D, 25-OH 2022-05-23 16:32:00 [facility] ANTI-SSA(RO) 2022-05-23 16:32:00 [facility] ANTI-DOUBLE STRANDED DNA 2022-05-23 16:32:00 [facility] ANTI-NUCLEAR 2022-05-23 16:32:00 [facility] ANTIBODY-PATHOLOGIST [facility] INTERPRETATION COMP. METABOLIC PANEL 2022-05-12 16:03:00 Sheela Jalloh [facility] ([id number]) [facility] CBC WITH DIFF 2022-05-12 16:03:00 Augustus Jallohssica [facility] CBC WITH DIFF 2022-04-26 09:49:00 Jenusaitis, [facility] CBC WITH DIFF 2022-04-26 09:49:00 Jenusajose [facility] VENOUS CORD GAS 2022-04-25 09:46:00 [facility] VENOUS CORD GAS 2022-04-25 09:46:00 [facility] SECTION 2022-04-25 08:35:00 Emilee Villarreal [facility] [employer] CENTRAL NEURAXIAL BLOCK 2022-04-24 17:48:00 Jessica Hazel [facility] SGOT (ASPARTATE AMINO 2022-04-24 05:40:00 Ken [facility] TRANSFER) [facility] CREATININE 2022-04-24 05:40:00 Ken [facility] ALANINE AMINO 2022-04-24 05:40:00 Ken, [facility] TRANSFERASE([facility] Medical Branch LACTATE DEHYDROGENASE 2022-04-24 05:40:00 Ken, [facility] URIC ACID 2022-04-24 05:40:00 [facility] URINALYS[facility] 2022-04-24 05:40:00 Ken, [facility] PROTEIN CREAT RATIO URINE 2022-04-24 05:40:00 Ken, [place] [facility] SGOT (ASPARTATE AMINO 2022-04-24 05:40:00 Ken, [facility] TRANSFER) Medical Branch CREATININE 2022-04-24 05:40:00 Ken, [facility] ALANINE AMINO 2022-04-24 05:40:00 Ken, [facility] TRANSFERASE(PT Medical Branch LACTATE DEHYDROGENASE 2022-04-24 05:40:00 Ken, [facility] URIC ACID 2022-04-24 05:40:00 Ken, [facility] URINALYSIS 2022-04-24 05:40:00 Ken, [facility] PROTEIN CREAT RATIO URINE 2022-04-24 05:40:00 Ken, [place] [facility] CBC WITH DIFF 2022-04-24 02:47:00 Blayne Beckham [facility] HEPATITIS B SURFACE 2022-04-24 02:47:00 Blayne Beckham [facility] ANTIGEN [facility] HIV 1/2 AG-AB WITH REFLEX 2022-04-24 02:47:00 Blayne Beckham [facility] SYPHILIS IGG/IGM 2022-04-24 02:47:00 Blayne Beckham [facility] CBC WITH DIFF 2022-04-24 02:47:00 Blayne Beckham [facility] HEPATITIS B SURFACE 2022-04-24 02:47:00 Blayne Beckham [facility] ANTIGEN [facility] HIV 1/2 AG-AB WITH REFLEX 2022-04-24 02:47:00 Blayne Beckham [facility] SYPHILIS IGG/IGM 2022-04-24 02:47:00 [place] [facility] HB ABO GROUPING 2022-04-24 02:43:00 [facility] RHO (D) IMMUNE GLOBULIN 2022-04-24 02:43:00 Jenusaitis, [facility] HB ABO GROUPING 2022-04-24 02:43:00 [place] RHO (D) IMMUNE GLOBULIN 2022-04-24 02:43:00 Jenusaitis, [facility] POCT URINALYSIS 2022-04-23 14:02:00 Lian Simms [facility] POCT URINALYSIS 2022-04-16 00:00:00 Lian Simms [facility] POCT URINALYSIS 2022-04-08 14:56:00 Lian Simms [facility] POCT URINALYSIS 2022-03-25 00:00:00 Lian Simms [facility] POCT URINALYSIS 2022-03-13 19:22:00 Lian Simms [facility] 3 HR GLUCOSE TOLERANCE 2022-02-27 17:23:00 Astrid Barnett [facility] 2 HR GLUCOSE TOLERANCE 2022-02-27 16:23:00 Astrid Barnett [facility] 1 HR GLUCOSE TOLERANCE 2022-02-27 15:23:00 Astrid Barnett U [facility] POCT URINALYSIS 2022-02-27 14:29:00 Lian Simms [facility] GLUCOSE FASTING 2022-02-27 14:20:00 Astrid Barnett [facility] 3 HR GLUCOSE TOLERANCE 2022-02-27 14:20:00 Astrid Barnett [facility] HIV 1/2 AG-AB WITH REFLEX 2022-02-27 14:20:00 Lian Simms [facility] GALV ONLY - SYPHILIS 2022-02-27 14:20:00 Lian Simms Un [facility] IGG/IGM [facility] POCT URINALYSIS 2022-02-14 20:25:00 Lian Simms [facility] AMYLASE 2022-02-06 01:15:00 Madhuri Orozco [place] [facility] LIPASE 2022-02-06 01:15:00 Madhuri Orozco [facility] COMP. METABOLIC PANEL 2022-02-06 01:15:00 Madhuri Orozco [facility] ([id number]) [facility] CBC WITH DIFF 2022-02-06 01:15:00 Madhuri Orozco [facility] US ABDOMEN LIMITED 2022-02-06 00:52:51 Madhuri Orozco [facility] CONSENT/REFUSAL FOR 2022-02-05 21:54:06 Doctor Unassfaye, [facility] DIAGNOSIS AND TREATMENT [facility] ASSIGNMENT OF BENEFITS 2022-02-02 21:50:55 Doctor Unassigned, [facility] [place] [facility] CONSENT/REFUSAL FOR 2022-02-02 21:49:43 Doctor Leonard, [facility] DIAGNOSIS AND TREATMENT [facility] GLUCOSE 1 HOUR POST 2022-01-31 16:42:00 Astrid Barnett [facility] CBC WITH DIFF 2022-01-31 16:42:00 Astrid Barnett [facility] TDAP VACCINE, >11 YRS, IM 2022-01-31 15:55:44 Lian Simms [facility] POCT URINALYSIS 2022-01-31 15:44:00 Lian Simms [facility] POCT URINALYSIS 2022-01-02 00:00:00 Lian Simms [facility] URINALYSIS 2021-12-11 01:30:00 Lizett Wei [facility] CONSENT/REFUSAL FOR 2021-12-11 00:26:08 Doctor Unassigned, [facility] DIAGNOSIS AND TREATMENT [facility] POCT URINALYSIS 2021-12-02 16:23:00 Lian Simms [facility] POCT URINALYSIS 2021-11-04 18:17:00 Lian Simms [facility] FIRST TRIMESTER TRISOMY 2021-10-25 20:33:00 Rosalia Purdy [facility] POCT URINALYSIS 2021-10-24 21:13:00 Lian Simms [facility] Plan of Care Planned Activity Planned Date Details Comments Source Encounters Start End Encounter Admission Attending Care Care Encounter Source Date/Time Date/Time Type Type Clinicians Facility Department ID 2022-02-02 Outpatient X [facility] ROSAURA [id number] Univers 18:33:42 [facility] 2022-09-11 2022-09-11 [id number] Univers 10:00:00 10:00:00 SHEELA lam [facility] 2022-07-11 2022-07-11 [facility] [id number] Univers 16:50:00 17:01:00 JADE lam [facility] 2022-07-11 2022-07-11 [facility] [id number] Univers 16:50:00 17:01:00 Jade ZIEGLER [id number] ity [facility] [id number] [facility] [id number] [facility] 084 Branch 2022-06-12 2022-06-12 Outpatient Abhijeet JALLOH [facility] [id number] Univers 10:00:00 10:12:19 SHEELA lam [facility] 2022-06-12 2022-06-12 [facility] [id number] Univers 10:00:00 10:12:19 Visit Sheela ZIEGLER [id number] i ty [facility] [id number] [facility] [id number] Az dical NAL [address] [place] [address] 2022-06-06 2022-06-06 Outpatient R AKINSIPE, [facility] [id number] Univers 11:00:00 11:34:30 LIAN lam o f [facility] 2022-06-06 2022-06-06 Office Demi, [facility] [id number] Univers 11:00:00 11:34:30 Visit Lian Brizuela BIOMEDICAL TECHNICIAN [id number] ity of REGIONAL [id number] Jose as MATERNAL [id number] Med ical & CHILD 107 [facility] 2022-06-06 2022-06-06 Orders Doctor LEROY [id number] Univers 00:00:00 00:00:00 Only Unassigned, GENE [id number] ity of [place] [id number] Jose as [id number] Medi vipin 009 [place] 2022-05-23 2022-05-23 Manager Case Management Pcp-Lab [facility] [id number] Univers 13:45:00 14:00:00 Visit Massimo, Analia Kamryn PRIMARY [id number] 10 [id number] [id number] Az dical [address] [place] 2022-05-23 2022-05-23 Outpatient R MASSIMO, [facility] [id number] Univers 10:30:00 11:27:53 ANALIA ity of [facility] 2022-05-23 2022-05-23 Office Thomas Figueroa [facility] 1.2. [id number] Univers 10:30:00 11:27:53 Visit Massimo, Analia Kamryn PRIMARY [id number] 10 [id number] [id number] Az dical 086 [place] 2022-05-16 2022-05-16 Outpatient R AKINSIPE, [facility] [id number] Univers 10:00:00 10:33:34 LIAN lam o f [facility] 2022-05-16 2022-05-16 Routine Demi, [facility] [id number] Univers 10:00:00 10:33:34 Lian Brizuela BIOMEDICAL TECHNICIAN [id number] ity of Visit [facility] [id number] Jose as MATERNAL [id number] [facility] & CHILD [address] [place] [address] 2022-05-12 2022-05-12 Manager Case Management 2, Adc Lab [facility] [id number] Univers 13:30:00 13:45:00 Visit Sheela Jalloh [id number] [id number] [id number] Az dical NAL 353 [facility] 2022-05-12 2022-05-12 Outpatient Abhijeet JALLOH [facility] [id number] Univers 10:00:00 10:58:05 SHEELA lam [facility] 2022-05-12 2022-05-12 Office Ag [facility] 1.2.840.114 [id number] Univers 10:00:00 10:58:05 Visit Sheela ZIEGLER 350.1.13.10 i ty of [place].2.[place] PROF[place] [phone] Az dical NAL 044 [facility] 2022-05-06 2022-05-06 Nurse Visit, Marcos-Rmchp Nurse [facility] 1.2 .840.114 [id number] Univers 09:00:00 09:32:21 Visit Lian Simms BIOMEDICAL TECHNICIAN 350.1.13. 10 ity of [facility] 4.2.7.2.686 Jose as MATERNAL [id number] [facility] & CHILD [address] [place] [address] 2022-05-06 2022-05-06 Outpatient Abhijeet SIMMS [facility] [id number] Univers 09:00:00 09:00:00 LIAN bentley [facility] 2022-05-02 2022-05-02 Outpatient R DEMI [facility] [id number] Univers 09:30:00 09:59:05 LIAN bentley [facility] 2022-05-02 2022-05-02 Nurse Visit, Ang-Rmchp Nurse [facility] 1.2 .840.114 [id number] Univers 09:30:00 09:59:05 Visit Lian Simms BIOMEDICAL TECHNICIAN 350.1.13. 10 ity of [facility] 4.2.7.2.686 Jsoe as MATERNAL [id number] [facility] ical & CHILD [address] [place] [address] 2022-04-23 2022-04-26 Hospital LEROY Archuleta 1.2.840.114 [id number] Univers 18:02:00 22:17:00 Encounter Chipshanel MILLS 350.1.13.10 ity [facility] 4.2.7.2.686 Jose as [phone] [address] 2022-04-26 2022-04-26 Telephone [facility] 1.2.840.114 [id number] Univers 00:00:00 00:00:00 Lian Brizuela BIOMEDICAL TECHNICIAN 350.1.13.10 ity [facility] 4.2.7.2.686 Jose as MATERNAL [phone] [facility] ical & CHILD [address] [place] [address] 2022-04-25 2022-04-25 Surgery LEROY Villarreal 1.2.840.114 [id number] Univers 02:10:00 03:52:00 Chasey GENE 350.1.13.10 it y of [facility] 4.2.7.2.686 [place] [id number] [facility] [address] 2022-04-24 2022-04-24 Anesthesia Daquan Bowman 1.2.8 40.114 [id number] Univers 11:17:00 11:17:00 Event Ronen Presley 350.1.13.10 ity of [facility] 4.2.7.2.686 Jose as [id number] [facility] [address] 2022-04-23 2022-04-23 Outpatient R DEMI [facility] [id number] Univers 08:00:00 08:21:15 LIAN lam o f [facility] 2022-04-23 2022-04-23 Routine [facility] 1.2.761.930 [id number] Univers 08:00:00 08:21:15 Lian C BIOMEDICAL TECHNICIAN 350.1.13.10 ity of Visit REGIONAL 4.2.7.2.686 Jose as MATERNAL [phone] [facility] & [address] 2022-04-23 2022-04-23 [facility] [id number] Univers 08:00:00 08:21:[address] [facility] 2022-04-22 2022-04-22 Refill [facility] 1.2.073.487 [id number] Univers 00:00:00 00:00:00 Lian C BIOMEDICAL TECHNICIAN 350.1.13.10 ity of REGIONAL 4.2.7.2.686 Jose as MATERNAL [id number] [address] 2022-04-16 2022-04-16 [facility] [id number] Univers 13:15:00 13:35:[address] [facility] 2022-04-16 2022-04-16 Routine [facility], [facility] 1.2.219.015 [id number] Univers 13:15:00 13:35:23 Lian C BIOMEDICAL TECHNICIAN 350.1.13.10 ity of Visit REGIONAL 4.2.7.2.686 Jose as MATERNAL [phone] [facility] [address] 2022-04-09 2022-04-09 Telephone [facility] 1.2.840.114 [id number] Univers 00:00:00 00:00:00 Lian C BIOMEDICAL TECHNICIAN 350.1.13.10 ity of REGIONAL 4.2.7.2.686 Jose as MATERNAL [id number] [facility] [address] 2022-04-08 2022-04-08 Outpatient R AKINSIPE, [facility] [id number] Univers 09:00:00 09:53:[address] [facility] 2022-04-08 2022-04-08 Routine [facility] 1.2.657.254 [id number] Univers 09:00:00 09:53:37 Lian C BIOMEDICAL TECHNICIAN 350.1.13.10 ity of Visit REGIONAL 4.2.7.2.686 Jose as MATERNAL [id number] [facility] CHILD [address] [place] [address] 2022-03-27 2022-03-27 Outpatient R [facility] [id number] Univers 14:45:00 14:45:00 LIAN ity o f [facility] 2022-03-27 2022-03-27 Telephone [facility] 1.2.840.114 [id number] Univers 00:00:00 00:00:00 Lian C BIOMEDICAL TECHNICIAN 350.1.13.10 ity of REGIONAL 4.2.7.2.686 Jose as MATERNAL [id number] [address] 2022-03-27 2022-03-27 Telephone [facility] 1.2.840.114 [id number] Univers 00:00:00 00:00:00 Lian C BIOMEDICAL TECHNICIAN 350.1.13.10 ity of REGIONAL 4.2.7.2.686 Jose as MATERNAL [id number] [facility] [address] 2022-03-25 2022-03-25 Outpatient R [facility] [id number] Univers 09:00:00 09:39:39 LIAN ity o f [facility] 2022-03-25 2022-03-25 Routine [facility] 1.2.765.024 [id number] Univers 09:00:00 09:39:39 Lian C BIOMEDICAL TECHNICIAN 350.1.13.10 ity of Visit REGIONAL 4.2.7.2.686 Jose as MATERNAL [id number] [facility] [address] 2022-03-25 2022-03-25 Telephone [facility] 1.2.840.114 [id number] Univers 00:00:00 00:00:00 Lian C BIOMEDICAL TECHNICIAN 350.1.13.10 ity of REGIONAL 4.2.7.2.686 Jose as MATERNAL [phone] [facility] & CHILD [address] [place] [address] 2022-03-24 2022-03-24 Telephone Demi, [facility] 1.2.840.114 [id number] Univers 00:00:00 00:00:00 Lian C BIOMEDICAL TECHNICIAN 350.1.13.10 ity of [facility] 42.7.2.686 Jose as MATERNAL [phone] [facility] CHILD [address] [place] [address] 2022-03-17 2022-03-17 Nurse LEROY Fowler 1.2.840.114 [id number] Univers 00:00:00 00:00:00 Triage Jose Cruz Camacho GENE 350.1.13.10 ity [place] [address].2.7.2.686 Jose as [id number] [address] 2022-03-13 2022-03-13 Outpatient R DEMI, [facility] [id number] Univers 13:15:00 13:43:58 LIAN ity o f [facility] 2022-03-13 2022-03-13 Routine [facility], [facility] 1.2.524.403 [id number] Univers 13:15:00 13:43:58 Lian C BIOMEDICAL TECHNICIAN 350.1.13.10 ity of Visit [facility] 4.2.7.2.686 Jose as MATERNAL [phone] [facility] CHILD [address] [place] [address] 2022-02-27 2022-02-27 Outpatient R AKINARNOLDPE, [facility] [id number] Univers 08:00:00 08:59:40 LIAN ity o f [facility] 2022-02-27 2022-02-27 Routine [facility], [facility] 1.2.444.603 [id number] Univers 08:00:00 08:59:40 Lian C BIOMEDICAL TECHNICIAN 350.1.13.10 ity of Visit [facility] 4.2.7.2.686 Jose as MATERNAL [id number] [facility] CHILD [address] [place] [address] 2022-02-19 2022-02-19 Telephone Provider, [facility] 1.2.840.114 [id number] Univers 00:00:00 00:00:[address] BIOMEDICAL TECHNICIAN 350.1.13.10 ity of Temp [facility] 4.2.7.2.686 Jose as MATERNAL [id number] [facility] CHILD [address] [place] [address] 2022-02-14 2022-02-14 Outpatient R DEMI [facility] [id number] Univers 13:45:00 14:46:03 LIAN bentley [facility] 2022-02-14 2022-02-14 Routine Provider, Donte [facility] 1 .2.840.114 [id number] [facility] 13:45:00 14:46:03 Lian Simms BIOMEDICAL TECHNICIAN 350.1.13 .10 ity of Visit [facility] 4.2.7.2.686 Jose as MATERNAL [id number] [facility] CHILD [address] [place] [address] 2022-02-14 2022-02-14 Outpatient R DEMI [facility] [id number] Univers 09:45:00 09:45:[address] [facility] 2022-02-07 2022-02-07 Telephone [facility] 1.2.840.114 [id number] Univers 00:00:00 00:00:00 Lian Brizuela BIOMEDICAL TECHNICIAN 350.1.13.10 ity of [facility] 4.2.7.2.686 Jose as MATERNAL [id number] [facility] [address] 2022-02-05 2022-02-05 Outpatient X MADHURI OROZCO [facility] [place] [id number] Univers 16:03:00 21:25:00 ity of [facility] 2022-02-05 2022-02-05 Emergency Madhuri Orozco [facility] 1.2.840.114 [id number] Univers 16:03:00 21:25:00 Robi GAASTRA 350.1.13.10 i ty [facility] 4.2.7.2.686 [place] [id number] [address] 2022-02-05 2022-02-05 [facility] 1.2.840.114 [id number] Univers 00:00:00 00:00:00 Lian C BIOMEDICAL TECHNICIAN 350.1.13.10 ity of [facility] 4.2.7.2.686 Jose as MATERNAL [id number] [facility] CHILD [address] [place] [address] 2022-02-04 2022-02-04 Telephone [facility] 1.2.840.114 [id number] Univers 00:00:00 00:00:00 Lian C BIOMEDICAL TECHNICIAN 350.1.13.10 ity of [facility] 4.2.7.2.686 Jose as MATERNAL [phone] [facility] & CHILD [address] [place] [address] 2022-02-02 2022-02-02 Outpatient X AD, [facility] [place] [id number] Univers 15:56:00 17:30:00 LIZETT itshanel [facility] 2022-02-02 2022-02-02 [facility] 1.2.216.235 [id number] Univers 15:56:00 17:30:00 Lizett Jimenez GAASTRA 350.1.13.10 ity of [place]2.7.2.686 [place] [facility] [id number] [address] 2022-02-02 2022-02-02 [facility] 1.2.840.114 [id number] Univers 00:00:00 00:00:00 Management Astrid A BIOMEDICAL TECHNICIAN 350.1.13.10 ity of [facility] 4.2.7.2.686 Jose as MATERNAL [id number] [facility] CHILD [address] [place] [address] 2022-01-31 2022-01-31 Outpatient R [facility] [id number] Univers 09:45:00 10:15:27 LIAN ity o f [facility] 2022-01-31 2022-01-31 Routine [facility] 1.2.303.087 [id number] Univers 09:45:00 10:15:27 Lian C BIOMEDICAL TECHNICIAN 350.1.13.10 ity of Visit [facility] 4.2.7.2.686 Jose as MATERNAL [id number] [facility] CHILD [address] [place] [address] 2022-01-02 2022-01-02 Outpatient R MIGUEL ANGEL [facility] [id number] Univers 10:45:00 11:43:22 ASTRID shanel [facility] 2022-01-02 2022-01-02 Routine Provider, Donte Bird [facility] 1 .2.840.114 [id number] Univers 10:45:00 11:43:22 Astrid Barnett BIOMEDICAL TECHNICIAN 350.1.13. 10 ity of Visit REGIONAL 4.2.7.2.686 Jose as MATERNAL [phone] Med ical & CHILD [address] [place] [address] 2021-12-30 2021-12-30 Outpatient R DEMI [facility] [id number] Univers 11:00:00 11:00:00 LIAN bentley [facility] 2021-12-19 2021-12-19 [facility] 1.2.840.114 [id number] Univers 00:00:00 00:00:00 Lian Brizuela BIOMEDICAL TECHNICIAN 350.1.13.10 ity of [facility] 4.2.7.2.686 Jose as MATERNAL [phone] [facility] ical & CHILD [address] [place] [address] 2021-12-13 2021-12-13 Manager Case Management Ultrasound, Filiberto [facility] 1.2 .840.114 [id number] Univers 13:00:00 14:15:00 Visit Josesito Carrillo BIOMEDICAL TECHNICIAN 350.1.13.10 ity of [facility] 4.2.7.2.686 Jose as MATERNAL [id number] [facility] ical & CHILD [address] [facility] 2021-12-13 2021-12-13 Outpatient P JOSESITO CARRILLO [facility] [id number] Univers 13:00:00 13:00:00 JOSESITO CARRILLO shanel [facility] 2021-12-10 2021-12-10 Outpatient X ADUM, [facility] [place] [id number] Univers 19:40:00 21:30:00 LIZETT [facility] 2021-12-10 2021-12-10 Emergency Adum, [facility] 1.2.715.799 [id number] Univers 19:40:00 21:30:00 Lizett ZIEGLER 350.1.13.10 ity of [place] 4[place]2.7.2.686 [place] [facility] [id number] [facility] [address] 2021-12-10 2021-12-10 Orders Doctor LEROY 1.2.840.114 [id number] Univers 00:00:00 00:00:00 Only Unassigned, GENE 350.1.13.10 ity of [facility] 4.2.7.2.686 Jose as [id number] [facility] [address] 2021-12-02 2021-12-02 Outpatient R AKINSIPE, [facility] [id number] Univers 11:00:00 11:28:[address] [facility] 2021-12-02 2021-12-02 Routine [facility] 1.2.378.715 [id number] Univers 11:00:00 11:28:34 Lian C BIOMEDICAL TECHNICIAN 350.1.13.10 ity of Visit [facility] 4.2.7.2.686 Jose as MATERNAL [phone] Med ical & CHILD [address] [place] [address] 2021-11-04 2021-11-04 Outpatient R AKINSIPE, [facility] [id number] Univers 12:45:00 13:34:[address] [facility] 2021-11-04 2021-11-04 Routine Akinpe, [facility] 1.2.737.906 [id number] Univers 12:45:00 13:34:38 Lian C BIOMEDICAL TECHNICIAN 350.1.13.10 ity of Visit [facility] 4.2.7.2.686 Jose as MATERNAL [phone] [facility] ical & CHILD [address] [place] [address] 2021-11-04 2021-11-04 Outpatient R AKINSIPE, [facility] [id number] Univers 12:45:00 12:45:00 LIAN ity o f [facility] 2021-10-29 2021-10-29 Abstract Akinsipe, [facility] 1.2.840.114 [id number] Univers 00:00:00 00:00:00 Lian C BIOMEDICAL TECHNICIAN 350.1.13.10 ity of REGIONAL 4.2.7.2.686 Jose as MATERNAL [phone] Med ical & CHILD [facility] 2021-10-25 2021-10-25 Manager Case Management Lab[facility] 1.2.840. 114 [id number] Univers 15:00:00 15:39:34 Visit Crispin Son BIOMEDICAL TECHNICIAN 350.1.13.10 ity of [facility] 4.2.7.2.686 Jose as MATERNAL [id number] [facility] ical & CHILD [address] [place] [address] 2021-10-25 2021-10-25 Outpatient R CRISPIN SON [facility] [id number] Univers 15:00:00 15:00:00 CRISPIN SON [facility] 2021-10-25 2021-10-25 Manager Case Management 1, [facility] Room [facility] 1.2. 840.114 [id number] Univers 14:00:00 14:45:00 Visit Joey Silva BIOMEDICAL TECHNICIAN 350.1.13.1 0 ity [facility] 4.2.7.2.686 Jose as MATERNAL [phone] [facility] ical & CHILD [address] [facility] 2021-10-25 2021-10-25 Outpatient P [facility] [id number] Univers 14:00:00 14:00:[facility] 2021-10-25 2021-10-25 Case Gurwinder [facility] 1.2.840.114 [id number] Univers 00:00:00 00:00:00 Management Rosalia BIOMEDICAL TECHNICIAN 350.1.13.10 ity [facility] 4.2.7.2.686 Jose as MATERNAL [phone] [facility] ical & CHILD [address] [place] [address] 2021-10-24 2021-10-24 Outpatient Abhijeet WARNER [facility] [id number] Univers 15:15:00 16:00:28 JOHNNY [facility] 2021-10-24 2021-10-24 Routine Risk, Wnn-Tlhga-Ac/High [facility] 1. 2.840.114 [id number] Univers 15:15:00 16:00:28 Johnny Warner BIOMEDICAL TECHNICIAN 350.1.13.10 ity of Visit REGIONAL 4.2.7.2.686 Jose as MATERNAL [id number] [facility] & CHILD [address] [place] [address] 2021-10-17 2021-10-17 Telephone [facility] 1.2.840.114 [id number] Univers 00:00:00 00:00:00 Lian Brizuela BIOMEDICAL TECHNICIAN 350.1.13.10 ity of [facility] 4.2.7.2.686 Jose as MATERNAL [id number] [address] 2021-10-07 2021-10-07 Outpatient R [facility] [id number] Univers 13:00:00 13:29:01 LIAN bentley [facility] 2021-10-07 2021-10-07 Routine [facility] 1.2.481.053 [id number] Univers 13:00:00 13:15:00 Lian Brizuela BIOMEDICAL TECHNICIAN 350.1.13.10 ity of Visit [facility]IONAL 4.2.7.2.686 Jose as MATERNAL [phone] [address] 2021-10-07 2021-10-07 Outpatient R DEMI [facility] [id number] Univers 13:00:00 13:00:00 LIAN bentley [facility] 2021-09-30 2021-09-30 Outpatient JOSESITO ARIAS [facility] [id number] Univers 10:00:00 10:51:05 JOSESITO CARRILLO [facility] 2021-09-30 2021-09-30 Routine Faculty, Marcos [facility] 1.2 .840.114 [id number] Univers 10:00:00 10:51:05 Josesito Carrillo BIOMEDICAL TECHNICIAN 350.1.13.10 ity of Visit REGIONAL 4.2.7.2.686 Jose as MATERNAL [id number] [facility] & [address] 2021-09-30 2021-09-30 Outpatient JOSESITO ARIAS [facility] [id number] Univers 10:00:00 10:51:05 JOSESITO CARRILLO ity of [facility] 2021-09-30 2021-09-30 Outpatient R [facility] [id number] Univers 10:00:00 10:00:00 ity of [facility] 2021-09-30 2021-09-30 Outpatient R [facility] [id number] Univers 10:00:00 10:00:00 ity of [facility] 2021-09-30 2021-09-30 Outpatient R [facility] [id number] Univers 10:00:00 10:00:00 ity of [facility] 2021-09-24 2021-09-24 Telephone [facility] 1.2.840.114 [id number] Univers 00:00:00 00:00:00 Lian Brizuela BIOMEDICAL TECHNICIAN 350.1.13.10 ity of [facility] 4.2.7.2.686 Jose as MATERNAL [id number] [facility] & CHILD [address] [place] [address] 2021-09-18 2021-09-18 Telephone [facility] 1.2.840.114 [id number] Univers 00:00:00 00:00:00 Lian Chata BIOMEDICAL TECHNICIAN 350.1.13.10 ity of [facility] 4.2.7.2.686 Jose as MATERNAL [id number] [facility] & [address] 2021-09-10 2021-09-10 Orders Doctor HARPER 1.2.840.114 [id number] Univers 00:00:00 00:00:00 Only Unassigned, GENE 350.1.13.10 ity of [facility] [facility] 4.2.7.2.686 Jose as [id number] [address] 2021-09-09 2021-09-09 Telephone [facility] 1.2.840.114 [id number] Univers 00:00:00 00:00:00 Lian C BIOMEDICAL TECHNICIAN 350.1.13.10 ity of [facility] 4.2.7.2.686 Jose as MATERNAL [id number] [facility] & CHILD [address] [place] [address] 2021-09-062021-09-06 Nurse LEROY Gardner 1.2.840.114 [id number] Univers 00:00:00 00:00:00 Triage Vicki MILLS 350.1.13.10 ity [facility] 4.2.7.2.686 Jose as [id number] [address] 2021-09-06 2021-09-06 Nurse Lester HARPER 1.2.840.114 [id number] Univers 00:00:00 00:00:00 Triage Jamshid GENE 350.1.13.10 ity [facility] 4.2.7.2.686 Jose as [id number] [address] 2021-09-05 2021-09-05 Telephone [facility] 1.2.840.114 [id number] [facility] 00:00:00 00:00:00 Lian C BIOMEDICAL TECHNICIAN 350.1.13.10 ity of [facility] 4.2.7.2.686 Jose as MATERNAL [phone] [facility] & CHILD [address] [place] [address] 2021-09-02 2021-09-02 Outpatient R AKINSIPE, [facility] [id number] Univers 15:00:00 16:51:[address] [facility] 2021-09-02 2021-09-02 Outpatient R AKINSIPE, [facility] [id number] Univers 15:00:00 16:51:[address] [facility] 2021-09-02 2021-09-02 Initial [facility] 1.2.808.328 [id number] Univers 15:00:00 16:51:33 Lian C BIOMEDICAL TECHNICIAN 350.1.13.10 ity of Visit REGIONAL 4.2.7.2.686 Jose as MATERNAL [id number] [facility] [address] 2021-09-02 2021-09-02 Outpatient R AKINSIPE, [facility] [id number] Univers 15:00:00 16:51:33 LIAN lam o f [facility] 2021-09-02 2021-09-02 Outpatient R AKINSIPE, [facility] [id number] [facility] 15:00:00 15:00:00 LIAN bentley [facility] 2021-09-02 2021-09-02 Outpatient R DEMI, [facility] [id number] [facility] 15:00:00 15:00:00 LIAN bentley [facility] 2021-09-02 2021-09-02 Orders Doctor LEROY 1.2.840.114 [id number] [facility] 00:00:00 00:00:00 Only Unassigned, GENE 350.1.13.10 ity of [facility] 4.2.7.2.686 Jose as [id number] [place] [address] Branch Results Test Description Test Test Results Result Source Time Comments Comments ANTI-NUCLEAR 2022-05- JOSE EDUARDO - Pathologist Unive rsity of ANTIBODY-PATHOLOGI 04 InterpretationANA [facility] INTERPRETATION 16:54:28 HEp-2 IIFA Pathologist Branch Interpretation Report Patient Name: Tanika Montemayor ? : 2000 ??Antinuclear Antibody (JOSE EDUARDO) Test (Anti-Cell Antibodies Test) Indirect Immunofluorescence Assay on HEp-2 Cells Screening titer: 1:80 (adults, > 18 years old), 1:40 (pediatrics, <= 18 years old)?Result: The antinuclear antibody (JOSE EDUARDO) screen is negative on interpretation. Remarks:This patient has a negative antinuclear antibody (JOSE EDUARDO) screening test. This suggests that the patient likely does not have a systemic autoimmune rheumatic disease that is strongly associated with a positive JOSE DEUARDO, such as systemic lupus erythematosus (JOSE EDUARDO positive in ~95-100%), systemic sclerosis (JOSE EDUARDO positive in ~60-80%), or the following disorders in which JOSE EDUARDO positivity is part of the diagnostic criteria: drug-induced lupus, autoimmune hepatitis, or mixed connective tissue disease. However, the JOSE EDUARDO may be negative in rare cases of systemic lupus erythematosus and systemic sclerosis. The JOSE EDUARDO may also be negative in ~20% of patients presenting with autoimmune hepatitis. Additionally, JOSE EDUARDO positivity is less sensitive in the diagnosis of Sjogren's syndrome (~40-70%) and dermatomyositis/polymy ositis (~30-80%). The JOSE EDUARDO also has limited diagnostic utility in vasculitis, as the JOSE EDUARDO may be negative in this autoimmune condition. The JOSE EDUARDO test is not useful for the diagnosis of rheumatoid arthritis, multiple sclerosis, idiopathic thrombocytopenic purpura, thyroid disease, discoid lupus, or fibromyalgia. ? Therefore, a diagnosis cannot be based exclusively on JOSE EDUARDO detection and/or pattern and thus should be made via the integration of patient history, physical exam findings, and other diagnostic tests as clinically indicated. References: - Cherie Garcia, Terrance R, Derek J, Wero DH, Camille LANDERS. Guidelines for clinical use of the antinuclear antibody test and tests for specific autoantibodies to nuclear antigens. [employer] [place] [employer]. Arch Pathol Lab Med. 2000;124(1):71-81. doi:10.5858/1999-124-0 [id number]- Anibal CL, Dominic D, Ev DN, et al. Diagnosis and Management of Autoimmune Hepatitis in Adults and Children: 2019 Practice Guidance and Guidelines From the [place] [employer] Liver Diseases. Hepatology. 2020;72(2):671-722. doi:10.1002/hep.83437- Paolo C, Sergey EC, Mauri M. Rational use of blood tests in the evaluation of rheumatic diseases. Mo Med. 2012;109(1):59-63. Jessie Carcamo MD ?05/27/2022 ?11:52 AM05/27/2022 11:54 AM [facility] ANTI-NUCLEAR ANTIBODY SCREEN 2022-05-26 23:33:37 Test Item Value Reference Range Interpretation Comme nts JOSE EDUARDO (test code = [id number]) Negative Negative MELVIN (test code = MELVIN) Negative: ?No Anti-Nuclear Antibodies detected by IFA. Positive: ?JOSE EDUARDO IFA screen performed with a 1:80 dilution in adults and a 1:40 dilution in pediatrics. ?A titer is performed and reported separately when the JOSE EDUARDO is "Positive" or when "Cytoplasmic staining is observed." Lab Interpretation (test code = Normal 72227-7) [facility]14:32 Test Item Value Reference Range Interpretation Comments Anti-Patel (test code = Negative Negative [id number]) MELVIN (test code = MELVIN) Positive - Antibody detected.Negative - No antibody detected. Lab Interpretation (test Normal code = 20706-5) [id number] 15:14:32 Test Item Value Reference Range Interpretation Comments Anti-Ribonucleoprotein Negative Negative (test code = 6119419701) MELVIN (test code = MELVIN) Positive - Antibody detected.Negative - No antibody detected. Lab Interpretation (test Normal code = 15836-8) [facility] 15:14:32 Test Item Value Reference Range Interpretation Comments ANTI-SSA(RO) (test code = Negative Negative 3965838060) MELVIN (test code = MELVIN) Positive - Antibody detected.Negative - No antibody detected. Lab Interpretation (test Normal code = 94740-3) [facility] STR[facility] [id number] 15:14:11 Test Item Value Reference Range Interpretation Comments ANTI-DSDNA (test code See_Comment [Auto mated = 7297148715) message] The system which generated this result transmit jamel reference range : 0.0 - 4.0 IU/mL . The reference range was not u sed to interpret th is result as normal/abnormal . MELVIN (test code = MELVIN) Negative ? ?< or = 4 IU/mLPositive ? ? ?> or = 10 IU/mLIndetermin ate ?5-9 IU/mL Lab Interpretation Normal (test code = 76644-4) [facility] 15:14:11 Test Item Value Reference Range Interpretation Comments Anti-SSB(LA) (test code = Negative Negative 8297772154) MELVIN (test code = MELVIN) Positive - Antibody detected.Negative - No antibody detected. Lab Interpretation (test Normal code = 95308-1) [facility] [id number] 19:45:31 Test Item Value Reference Range Interpretation Comments C4 (test code = 8743887855) 39 mg/dL 20-59 Lab Interpretation (test code = Normal 23529-7) [facility] HospitalRHEUMATOID [id number] 19:45:31 Test Item Value Reference Range Interpretation Comments RF (test code = See_Comment [Automated message] 0900641157) The system [employer] generated this result transmitted ref erence range: <20 IU/m L. The reference range was not used to int erpret this result as normal/abnormal . Lab Interpretation (test Normal code = 51875-0) [facility]-REACTIVE [id number] 19:45:31 Test Item Value Reference Range Interpretation Comments CRP (test code = 0540784427) 0.4 mg/dL <=0.8 Lab Interpretation (test code = Normal 49664-2) [facility] [id number] 19:45:30 Test Item Value Reference Range Interpretation Comments C3 (test code = 3203594799) 146 mg/dL 86-184 Lab Interpretation (test code = Normal 05561-2) [facility] HospitalHCV [id number] 18:58:53 Test Item Value Reference Range Interpretation Comments HCV Ab (test code = 90023-5) Negative HCV Semi-Quantitative (test code = 0.03 61745-1) [facility] HospitalVITAMIN D, [id number] 18:27:04 Test Item Value Reference Range Interpretation Comments VIT D 25OH (test code = 14 ng/mL 25-80 L 74290-0) MELVIN (test code = MELVIN) Deficiency: <20 ng/mLInsufficiency: 20-24 ng/mLOptimal: 25-80 ng/mL Lab Interpretation (test Abnormal code = 21115-0) [facility] with Mgwvuhekqikr8328-06-23 10:36:30 Test Item Value Reference Range Interpretation Comments WBC (test code = 10.67 See_Comment [Automated 7190-2) message] The sy stem which generated this result transmitted reference range : 4.30 - 11.10 10*3/?L. The reference range was not used to interpret this result as normal/abnormal . RBC (test code = 3.72 See_Comment L [Automated 619-8) message] The sy stem which generated this [...] RDW-SD (test code = 49.8 fL 39.0-49.9 94147-4) RDW-CV (test code = 18.2 % 12.0-15.5 H 788-0) PLT (test code = 200 See_Comment [Automated 777-3) message] The sy stem which generated this result transmitted reference range : 166 - 358 10*3/ ?L. The reference r helene was not used to interpret this result as normal/abnormal . MPV (test code = 11.0 fL 9.5-12.9 15916-5) NRBC/100 WBC (test 0.0 See_Comment [Automat ed code = 0882725561) message] The system which generated this result transmitted reference range : 0.0 - 10.0 /100 WBCs. The refer ence range was not u sed to interpret th is result as normal/abnormal . NRBC x10^3 (test code See_Comment [Auto mated = 8147458503) message] The s ystem which generated this result transmitted reference range : 10*3/?L. The reference range was not used to interpret this result as normal/abnormal . GRAN MAT (NEUT) % 81.9 % (test code = 770-8) IMM GRAN % (test code 0.60 % = 5072765181) LYMPH % (test code = 11.7 % 736-9) MONO % (test code = 4.8 % 5905-5) EOS % (test code = 0.9 % 713-8) BASO % (test code = 0.1 % 706-2) GRAN MAT x10^3(ANC) 8.74 10*3/uL 1.88-7.09 H (test code = 2960777954) IMM GRAN x10^3 (test 0.06 10*3/uL 0.00-0.06 code = 0487922067) LYMPH x10^3 (test code 1.25 10*3/uL 1.32-3.29 L = 731-0) MONO x10^3 (test code 0.51 10*3/uL 0.33-0.92 = 742-7) EOS x10^3 (test code = 0.10 10*3/uL 0.03-0.39 711-2) BASO x10^3 (test code 0.01-0.07 = 704-7) Lab Interpretation Abnormal (test code = 07652-8) [facility] with Qxruoyhrioih5326-76-97 10:36:30 Test Item Value Reference Range Interpretation Comments WBC (test code = 10.67 See_Comment [Automated 6690-2) message] The sy stem which generated this result transmitted reference range : 4.30 - 11.10 10*3/?L. The reference range was not used to interpret this result as normal/abnormal . RBC (test code = 3.72 See_Comment L [Automated 789-8) message] The sy stem which [...] RDW-SD (test code = 49.8 fL 39.0-49.9 44921-5) RDW-CV (test code = 18.2 % 12.0-15.5 H 788-0) PLT (test code = 200 See_Comment [Automated 777-3) message] The sy stem which generated this result transmitted reference range : 166 - 358 10*3/ ?L. The reference r helene was not used to interpret this result as normal/abnormal . MPV (test code = 11.0 fL 9.5-12.9 66772-7) NRBC/100 WBC (test 0.0 See_Comment [Automat ed code = 4851259611) message] The system which generated this result transmitted reference range : 0.0 - 10.0 /100 WBCs. The refer ence range was not u sed to interpret th is result as normal/abnormal . NRBC x10^3 (test code See_Comment [Auto mated = 8043301143) message] The s ystem which generated this result transmitted reference range : 10*3/?L. The reference range was not used to interpret this result as normal/abnormal . GRAN MAT (NEUT) % 81.9 % (test code = 770-8) IMM GRAN % (test code 0.60 % = 8199442563) LYMPH % (test code = 11.7 % 736-9) MONO % (test code = 4.8 % 5905-5) EOS % (test code = 0.9 % 713-8) BASO % (test code = 0.1 % 706-2) GRAN MAT x10^3(ANC) 8.74 10*3/uL 1.88-7.09 H (test code = 7938961923) IMM GRAN x10^3 (test 0.06 10*3/uL 0.00-0.06 code = 9032596988) LYMPH x10^3 (test code 1.25 10*3/uL 1.32-3.29 L = 731-0) MONO x10^3 (test code 0.51 10*3/uL 0.33-0.92 = 742-7) EOS x10^3 (test code = 0.10 10*3/uL 0.03-0.39 711-2) BASO x10^3 (test code 0.01-0.07 = 704-7) Lab Interpretation Abnormal (test code = 35333-7) [facility] (D) IMMUNE [id number] 12:57:08 Test Item Value Reference Range Interpretation Comments RHIG CANDIDATE? No- see comment Patient i s not a (test code = candidate for R hIg- 5055) Patient is Rh Positive.Perfor med at [facility] Laboratory Services - [facility] Blood [address] [address]Fl[address] Free: [phone] A No. [id number] [facility] (D) IMMUNE [id number] 12:57:08 Test Item Value Reference Range Interpretation Comments RHIG CANDIDATE? No- see comment Patient i s not a (test code = candidate for R hIg- 5055) Patient is Rh Positive.Perfor med at [facility] Laboratory Services - [facility] Blood [address] [place] [address]Qmbd Free: [phone] A No. [id number] [facility] CORD [id number] 10:01:20 Test Item Value Reference Range Interpretation Comments VENOUS BASE EXCESS, -5.6 mEq/L CORD (test code = 3648369740) VENOUS PH, CORD (test 7.36 7.25-7.45 code = 7562394584) VENOUS PC02, CORD 34 See_Comment [Automate d message] The (test code = system which ge nerated 8745704456) this result tra nsmitted reference range : 27 - 49 mmHg. The refer ence range was not used to interpret this result as normal/abnormal . VENOUS PO2, CORD (test 31 See_Comment [Aut omated message] The code = 9273284015) system [facility] generated this result tra nsmitted reference range : 17 - 41 mmHg. The refer ence range was not used to interpret this result as normal/abnormal . VENOUS BICARBONATE, 19 See_Comment [Automa jamel message] The CORD (test code = system [facility] ch generated 5844239908) this result tra nsmitted reference range : 12 - 29 mEq/L. The refe rence range was not used to interpret this result as normal/abnormal . [facility] CORD [id number] 10:01:20 Test Item Value Reference Range Interpretation Comments VENOUS BASE EXCESS, -5.6 mEq/L CORD (test code = 6063007966) VENOUS PH, CORD (test 7.36 7.25-7.45 code = 3228904217) VENOUS PC02, CORD 34 See_Comment [Automate d message] The (test code = system which ge nerated 3107570223) this result tra nsmitted reference range : 27 - 49 mmHg. The refer ence range was not used to interpret this result as normal/abnormal . VENOUS PO2, CORD (test 31 See_Comment [Aut omated message] The code = 9577330928) system [facility] generated this result tra nsmitted reference range : 17 - 41 mmHg. The refer ence range was not used to interpret this result as normal/abnormal . VENOUS BICARBONATE, 19 See_Comment [Automa jamel message] The CORD (test code = system whi ch generated 4538610265) this result tra nsmitted reference range : 12 - 29 mEq/L. The refe rence range was not used to interpret this result as normal/abnormal . [facility] CORD [id number] 09:58:24 Test Item Value Reference Range Interpretation Comments BASE EXCESS, CORD -5.4 mEq/L (test code = 7800644032) AC PH, CORD (BEAKER) 7.33 7.18-7.38 (test code = 4394539945) PC02, CORD (test code 40 See_Comment [Auto mated message] The = ) system which g enerated this result transmit jamel reference range : 32 - 66 mmHg. The refer ence range was not used to interpret this result as normal/abnormal . PO2, CORD (test code 20 See_Comment [Autom ated message] The = ) system which g enerated this result transmit jamel reference range : 10 - 30 mmHg. The refer ence range was not used to interpret this result as normal/abnormal . BICARBONATE, CORD 20 See_Comment [Automate d message] The (test code = system which ge nerated this 7914918320) result transmit jamel reference range : 17 - 27 mEq/L. The refe rence range was not used to interpret this result as normal/abnormal . [facility] CORD [id number] 09:58:24 Test Item Value Reference Range Interpretation Comments BASE EXCESS, CORD -5.4 mEq/L (test code = 8563490987) AC PH, CORD (BEAKER) 7.33 7.18-7.38 (test code = 2579228071) PC02, CORD (test code 40 See_Comment [Auto mated message] The = ) system which g enerated this result transmit jamel reference range : 32 - 66 mmHg. The refer ence range was not used to interpret this result as normal/abnormal . PO2, CORD (test code 20 See_Comment [Autom ated message] The = 6320458684) system which g enerated this result transmit jamel reference range : 10 - 30 mmHg. The refer ence range was not used to interpret this result as normal/abnormal . BICARBONATE, CORD 20 See_Comment [Automate d message] The (test code = system which ge nerated this 6920314677) result transmit jamel reference range : 17 - 27 mEq/L. The refe rence range was not used to interpret this result as normal/abnormal . [facility] ONLY - SYPHILIS [id number] 16:21:06 Test Item Value Reference Range Interpretation Comments Syphilis IgG/IgM (test Non-reactive Non-reactive code = 06665-5) MELVIN (test code = MELVIN) Non-reactive - No serologic evidence of T. pallidum infection. Cannot exclude incubating or early syphilis. Submit a second specimen in 2-4 weeks if syphilis is clinically suspected. Equivocal - Further testing to follow. Reactive - Further testing to follow. Lab Interpretation (test Normal code = 83963-3) [facility] ONLY - SYPHILIS [id number] 16:21:06 Test Item Value Reference Range Interpretation Comments Syphilis IgG/IgM (test Non-reactive Non-reactive code = 77352-8) MELVIN (test code = MELVIN) Non-reactive - No serologic evidence of T. pallidum infection. Cannot exclude incubating or early syphilis. Submit a second specimen in 2-4 weeks if syphilis is clinically suspected. Equivocal - Further testing to follow. Reactive - Further testing to follow. Lab Interpretation (test Normal code = 05555-9) [facility] Hospital[facility] Gkcnv5428-18-05 06:06:11 Test Item Value Reference Range Interpretation Comments URIC ACID (test code = 6618088670) 3.6 mg/dL 2.9-6.0 Lab Interpretation (test code = Normal 52424-4) [facility] Lrqppyhxjo2866-36-54 06:06:11 Test Item Value Reference Range Interpretation Comments CREATININE (test code 0.53 mg/dL 0.50-1.04 = 0773575035) eGFR (test code = 144.2 mL/min/1.73m2 9005905507) MELVIN (test code = MELVIN) Association of [...] or urine or abnormalities in imaging tests). [facility] (Asparate Amino Transfer)2022-04-24 06:06:11 Test Item Value Reference Range Interpretation Comments AST(SGOT) (test code = 0841555860) 22 U/L 13-40 Lab Interpretation (test code = Normal 65710-7) [facility] HospitalAlanine Amino Transferase (SGPT)2022-04-24 06:06:11 Test Item Value Reference Range Interpretation Comments ALTv (test code = 1742-6) 19 U/L 5-35 Lab Interpretation (test code = Normal 15252-2) [facility] HospitalU[facility] Acid Jqjgi3561-26-85 06:06:11 Test Item Value Reference Range Interpretation Comments URIC ACID (test code = 9538772252) 3.6 mg/dL 2.9-6.0 Lab Interpretation (test code = Normal 70360-2) [facility] HospitalSer Rbrpabukxt3908-94-04 06:06:11 Test Item Value Reference Range Interpretation Comments CREATININE (test code 0.53 mg/dL 0.50-1.04 = 9162200144) eGFR (test code = 144.2 mL/min/1.73m2 9421963509) MELVIN (test code = MELVIN) Association of [...] or urine or abnormalities in imaging tests). [facility] (Asparate Amino Transfer)2022-04-24 06:06:11 Test Item Value Reference Range Interpretation Comments AST(SGOT) (test code = 9590452938) 22 U/L 13-40 Lab Interpretation (test code = Normal 99828-8) [facility] HospitalAlanine Amino Transferase (SGPT)2022-04-24 06:06:11 Test Item Value Reference Range Interpretation Comments ALTv (test code = 1742-6) 19 U/L 5-35 Lab Interpretation (test code = Normal 17737-8) [facility] HospitalLactate Dkidykiyuncsr1361-37-67 06:05:30 Test Item Value Reference Range Interpretation Comments LDH (test code = 0104130190) 178 U/L 120-246 Lab Interpretation (test code = Normal 76145-6) [facility] HospitalL[facility]ate Cjknbpkyrznhq9223-65-52 06:05:30 Test Item Value Reference Range Interpretation Comments LDH (test code = 2610099925) 178 U/L 120-246 Lab Interpretation (test code = Normal 19825-0) [facility] 1/2 AG-AB WITH [id number] 05:41:30 Test Item Value Reference Range Interpretation Comments HIV 0.08 Negative Semi-quantitative (test code = 49464-4) MELVIN (test code = Non-reactive for HIV-1 MELVIN) antigen and HIV-1/HIV-2 antibodies. ?No laboratory evidence of HIV infection. ?Repeat in 2-4 weeks if acute HIV infection is suspected. [facility] 1/2 AG-AB WITH [id number] 05:41:30 Test Item Value Reference Range Interpretation Comments HIV 0.08 Negative Semi-quantitative (test code = 02642-6) MELVIN (test code = Non-reactive for HIV-1 MELVIN) antigen and HIV-1/HIV-2 antibodies. ?No laboratory evidence of HIV infection. ?Repeat in 2-4 weeks if acute HIV infection is suspected. [facility] B Surface Elxdxuz0831-88-70 04:25:16 Test Item Value Reference Range Interpretation Comments HBsAg Semi-Quantitative (test code = 0.05 Negative 5195-3) [facility] B Surface Hzgeigy1511-72-80 04:25:16 Test Item Value Reference Range Interpretation Comments HBsAg Semi-Quantitative (test code = 0.05 Negative 5195-3) [facility] and Screen - ONCE [id number] 03:37:42 Test Item Value Reference Range Interpretation Comments ABO & RH (test code O POSITIVE Performe d at [facility] = 20) Laboratory [facility] [address]Ogdz Free: [phone] A No. [id number] IAT (test code = Negative Performed a t [facility] 1185) Laboratory [facility] [address] [address]Hokl Free: [phone] A No. [id number] [facility] and Screen - ONCE [id number] 03:37:42 Test Item Value Reference Range Interpretation Comments ABO & RH (test code O POSITIVE Performe d at [facility] = 20) Laboratory [facility] Blood [facility] [address] [facility] [address]Vdpx Free: [phone] A No. [id number] IAT (test code = Negative Performed a t [facility] 1185) Laboratory [facility] Blood [facility] [address] [facility] [address]Pbmo Free: [phone] A No. [id number] [facility] with Ofjelbvyayiw7265-34-62 03:28:48 Test Item Value Reference Range Interpretation Comments WBC (test code = 7.20 See_Comment [Automated 5001-2) message] The sy stem which generated this result transmitted reference range : 4.30 - 11.10 10*3/?L. The reference range was not used to interpret this result as normal/abnormal . RBC (test code = 4.58 See_Comment [Automated 469-8) message] The sy stem which generated this [...] RDW-SD (test code = 46.3 fL 39.0-49.9 22452-9) RDW-CV (test code = 18.0 % 12.0-15.5 H 788-0) PLT (test code = 237 See_Comment [Automated 577-3) message] The sy stem which generated this result transmitted reference range : 166 - 358 10*3/ ?L. The reference r helene was not used to interpret this result as normal/abnormal . MPV (test code = 12.1 fL 9.5-12.9 45795-8) NRBC/100 WBC (test 0.0 See_Comment [Automat ed code = 4965422910) message] The system which generated this result transmitted reference range : 0.0 - 10.0 /100 WBCs. The refer ence range was not u sed to interpret th is result as normal/abnormal . NRBC x10^3 (test code See_Comment [Auto mated = 9638169336) message] The s ystem which generated this result transmitted reference range : 10*3/?L. The reference range was not used to interpret this result as normal/abnormal . GRAN MAT (NEUT) % 66.3 % (test code = 770-8) IMM GRAN % (test code 0.70 % = 7368564018) LYMPH % (test code = 22.1 % 736-9) MONO % (test code = 8.1 % 5905-5) EOS % (test code = 2.2 % 713-8) BASO % (test code = 0.6 % 706-2) GRAN MAT x10^3(ANC) 4.78 10*3/uL 1.88-7.09 (test code = 0258890304) IMM GRAN x10^3 (test 0.05 10*3/uL 0.00-0.06 code = 8478125836) LYMPH x10^3 (test code 1.59 10*3/uL 1.32-3.29 = 731-0) MONO x10^3 (test code 0.58 10*3/uL 0.33-0.92 = 742-7) EOS x10^3 (test code = 0.16 10*3/uL 0.03-0.39 711-2) BASO x10^3 (test code 0.04 10*3/uL 0.01-0.07 = 704-7) Lab Interpretation Abnormal (test code = 27382-9) [facility] with Ptegpvjeifva0073-03-94 03:28:48 Test Item Value Reference Range Interpretation [...] RDW-SD (test code = 46.3 fL 39.0-49.9 13520-4) RDW-CV (test code = 18.0 % 12.0-15.5 H 788-0) PLT (test code = 237 See_Comment [Automated 777-3) message] The sy stem which generated this result transmitted reference range : 166 - 358 10*3/ ?L. The reference r helene was not used to interpret this result as normal/abnormal . MPV (test code = 12.1 fL 9.5-12.9 16646-6) NRBC/100 WBC (test 0.0 See_Comment [Automat ed code = 3074365466) message] The system which generated this result transmitted reference range : 0.0 - 10.0 /100 WBCs. The refer ence range was not u sed to interpret th is result as normal/abnormal . NRBC x10^3 (test code See_Comment [Auto mated = 6991600216) message] The s ystem which generated this result transmitted reference range : 10*3/?L. The reference range was not used to interpret this result as normal/abnormal . GRAN MAT (NEUT) % 66.3 % (test code = 770-8) IMM GRAN % (test code 0.70 % = 5365526466) LYMPH % (test code = 22.1 % 736-9) MONO % (test code = 8.1 % 5905-5) EOS % (test code = 2.2 % 713-8) BASO % (test code = 0.6 % 706-2) GRAN MAT x10^3(ANC) 4.78 10*3/uL 1.88-7.09 (test code = 6967050472) IMM GRAN x10^3 (test 0.05 10*3/uL 0.00-0.06 code = 4865371354) LYMPH x10^3 (test code 1.59 10*3/uL 1.32-3.29 = 731-0) MONO x10^3 (test code 0.58 10*3/uL 0.33-0.92 = 742-7) EOS x10^3 (test code = 0.16 10*3/uL 0.03-0.39 711-2) BASO x10^3 (test code 0.04 10*3/uL 0.01-0.07 = 704-7) Lab Interpretation Abnormal (test code = 17730-8) [facility] URINALYSIS W SPECIFIC [id number] 14:02:00 Test Item Value Reference Range Interpretation [...] POCT U APPEAR (test code = 3267) [facility] URINALYSIS W SPECIFIC [id number] 19:12:00 Test Item Value Reference Range Interpretation [...] U APPEAR (test code = 3267) . [facility] URINALYSIS W SPECIFIC [id number] 14:57:00 Test Item Value Reference Range Interpretation [...] U APPEAR (test code = 3267) . [facility] URINALYSIS W SPECIFIC [id number] 15:24:00 Test Item Value Reference Range Interpretation [...] U APPEAR (test code = 3267) . [facility] URINALYSIS W SPECIFIC [id number] 15:24:00 Test Item Value Reference Range Interpretation [...] U APPEAR (test code = 3267) . [facility] URINALYSIS W SPECIFIC [id number] 15:24:00 Test Item Value Reference Range Interpretation [...] U APPEAR (test code = 3267) . [facility] URINALYSIS W SPECIFIC [id number] 15:24:00 Test Item Value Reference Range Interpretation [...] U APPEAR (test code = 3267) . [facility] URINALYSIS W SPECIFIC [id number] 19:23:00 Test Item Value Reference Range Interpretation [...] 3267) Lab Interpretation (test code = Abnormal 68852-8) [facility] IGG/BCW1795-80-82 19:05:10 Test Item Value Reference Range Interpretation Comments Syphilis IgG/IgM (test Non-reactive Non-reactive code = 72679-0) MELVIN (test code = MELVIN) Non-reactive - No serologic evidence of T. pallidum infection. Cannot exclude incubating or early syphilis. Submit a second specimen in 2-4 weeks if syphilis is clinically suspected. Equivocal - Further testing to follow. Reactive - Further testing to follow. Lab Interpretation (test Normal code = 06369-4) [facility]-AB WITH [id number] 08:36:57 Test Item Value Reference Range Interpretation Comments HIV Negative Negative Semi-quantitative (test code = 64450-0) MELVIN (test code = Non-reactive for HIV-1 MELVIN) antigen and HIV-1/HIV-2 antibodies. ?No laboratory evidence of HIV infection. ?Repeat in 2-4 weeks if acute HIV infection is suspected. [facility] HR GLUCOSE TOLERANCE [id number] 06:22:04 Test Item Value Reference Range Interpretation Comments GLUC 3 HR (test code = 2002357390) 128 mg/dL 70-110 H Lab Interpretation (test code = Abnormal 56042-1) [facility] HR GLUCOSE TOLERANCE [id number] 06:20:02 Test Item Value Reference Range Interpretation Comments GLUC 1 HR (test code = 6923781092) 129 mg/dL 120-170 Lab Interpretation (test code = Normal 13335-5) [facility] HR GLUCOSE TOLERANCE [id number] 06:20:02 Test Item Value Reference Range Interpretation Comments GLUC 2 HR (test code = 8130922937) 133 mg/dL 70-120 H Lab Interpretation (test code = Abnormal 72138-3) [facility] [id number] 06:19:01 Test Item Value Reference Range Interpretation Comments GLU FASTNG (test code = 7446257805) 79 mg/dL 70-110 Lab Interpretation (test code = Normal 83394-4) [facility]CIFIC [id number] 14:29:00 Test Item Value Reference Range Interpretation [...] U APPEAR (test code = 3267) . [facility] URINALYSIS W SPECIFIC [id number] 20:27:00 Test Item Value Reference Range Interpretation [...] POCT U APPEAR (test code = 3267) [facility]. METABOLIC PANEL (42511)2022-02-06 02:30:30 Test Item Value Reference Range Interpretation Comments NA (test code = 136 mmol/L 135-145 6593292711) K (test code = 3.4 mmol/L 3.5-5.0 L 7938862086) CL (test code = 107 mmol/L 98-108 1495617963) CO2 TOTAL (test code = 23 mmol/L 23-31 7903814477) AGAP (test code = 2-16 8248982932) BUN (test code = 5 mg/dL 7-23 L 4033997186) GLUCOSE (test code = 61 mg/dL 70-110 L 9559984683) CREATININE (test code = 0.50 mg/dL 0.50-1.04 8361851500) TOTAL BILI (test code = 0.4 mg/dL 0.1-1.7 7811744041) CALCIUM (test code = 8.8 mg/dL 8.6-10.6 1078748136) T PROTEIN (test code = 6.4 g/dL 6.3-8.2 1467833312) ALBUMIN (test code = 3.5 g/dL 3.5-5.0 0214871073) ALK PHOS (test code = 106 U/L 34-122 9349382816) ALTv (test code = 29 U/L 5-35 1742-6) AST(SGOT) (test code = 31 U/L 13-40 8116649917) eGFR (test code = mL/min/1.73m2 6996377912) MELVIN (test code = MELVIN) Association of [...] tests). Lab Interpretation Abnormal (test code = 14848-4) [facility] Test Item Value Reference Range Interpretation Comments LIPASE (test code = 6115056697) 60 U/L 0-220 Lab Interpretation (test code = Normal 34042-6) [facility] 02:17:16 Test Item Value Reference Range Interpretation Comments SHAYNA (test code = 3520448237) 74 U/L 35-110 Lab Interpretation (test code = Normal 87905-3) [facility] [id number] 01:45:14 Test Item Value Reference Range Interpretation Comments WBC (test code = See_Comment [Automated 3390-2) message] The sy stem which generated this result transmitted reference range : 4.30 - 11.10 10*3/?L. The reference range was not used to interpret this result as normal/abnormal . RBC (test code = See_Comment [Automated 659-8) message] The sy stem which generated this [...] (test code = 34.9 fL 39.0-49.9 L 16361-4) RDW-CV (test code = 12.2 % 12.0-15.5 788-0) PLT (test code = See_Comment [Automated 557-3) message] The sy stem which generated this result transmitted reference range : 166 - 358 10*3/ ?L. The reference r helene was not used to interpret this result as normal/abnormal . MPV (test code = 10.6 fL 9.5-12.9 86179-4) NRBC/100 WBC (test See_Comment [Automat ed code = 8413432579) message] The system which generated this result transmitted reference range : 0.0 - 10.0 /100 WBCs. The refer ence range was not u sed to interpret th is result as normal/abnormal . NRBC x10^3 (test code See_Comment [Auto mated = 4501135980) message] The s ystem which generated this result transmitted reference range : 10*3/?L. The reference range was not used to interpret this result as normal/abnormal . GRAN MAT (NEUT) % 59.2 % (test code = 770-8) IMM GRAN % (test code 1.10 % = 7382027967) LYMPH % (test code = 27.4 % 736-9) MONO % (test code = 8.2 % 5905-5) EOS % (test code = 3.5 % 713-8) BASO % (test code = 0.6 % 706-2) GRAN MAT x10^3(ANC) 3.75 10*3/uL 1.88-7.09 (test code = 4302022225) IMM GRAN x10^3 (test 0.07 10*3/uL 0.00-0.06 H code = 3728115795) LYMPH x10^3 (test code 1.74 10*3/uL 1.32-3.29 = 731-0) MONO x10^3 (test code 0.52 10*3/uL 0.33-0.92 = 742-7) EOS x10^3 (test code = 0.22 10*3/uL 0.03-0.39 711-2) BASO x10^3 (test code 0.04 10*3/uL 0.01-0.07 = 704-7) Lab Interpretation Abnormal (test code = 85636-5) [facility] [id number] 06:43:02 Test Item Value Reference Range Interpretation Comments GLUC 1 HR (test code = 6108878776) 156 mg/dL 120-170 Lab Interpretation (test code = Normal 55677-2) [facility] with [id number] 06:16:22 Test Item Value Reference Range Interpretation [...] (test code = 36.9 fL 39.0-49.9 L 66742-6) RDW-CV (test code = 12.1 % 12.0-15.5 788-0) PLT (test code = See_Comment [Automated 777-3) message] The sy stem which generated this result transmitted reference range : 166 - 358 10*3/ ?L. The reference r helene was not used to interpret this result as normal/abnormal . MPV (test code = 11.3 fL 9.5-12.9 44797-5) NRBC/100 WBC (test See_Comment [Automat ed code = 1674533262) message] The system which generated this result transmitted reference range : 0.0 - 10.0 /100 WBCs. The refer ence range was not u sed to interpret th is result as normal/abnormal . NRBC x10^3 (test code See_Comment [Auto mated = 8836711197) message] The s ystem which generated this result transmitted reference range : 10*3/?L. The reference range was not used to interpret this result as normal/abnormal . GRAN MAT (NEUT) % 67.0 % (test code = 770-8) IMM GRAN % (test code 1.30 % = 3466673093) LYMPH % (test code = 20.3 % 736-9) MONO % (test code = 5.8 % 5905-5) EOS % (test code = 4.9 % 713-8) BASO % (test code = 0.7 % 706-2) GRAN MAT x10^3(ANC) 4.48 10*3/uL 1.88-7.09 (test code = 7852747796) IMM GRAN x10^3 (test 0.09 10*3/uL 0.00-0.06 H code = 4191152576) LYMPH x10^3 (test code 1.36 10*3/uL 1.32-3.29 = 731-0) MONO x10^3 (test code 0.39 10*3/uL 0.33-0.92 = 742-7) EOS x10^3 (test code = 0.33 10*3/uL 0.03-0.39 711-2) BASO x10^3 (test code 0.05 10*3/uL 0.01-0.07 = 704-7) Lab Interpretation Abnormal (test code = 03202-7) [facility] URINALYSIS W SPECIFIC [id number] 15:44:00 Test Item Value Reference Range Interpretation [...] POCT U APPEAR (test code = 3267) [facility] URINALYSIS W SPECIFIC [id number] 15:44:00 Test Item Value Reference Range Interpretation [...] POCT U APPEAR (test code = 3267) [facility] URINALYSIS W SPECIFIC [id number] 15:44:00 Test Item Value Reference Range Interpretation [...] POCT U APPEAR (test code = 3267) [facility] URINALYSIS W SPECIFIC [id number] 17:14:00 Test Item Value Reference Range Interpretation [...] U APPEAR (test code = 3267) . [facility] URINALYSIS W SPECIFIC [id number] 16:23:00 Test Item Value Reference Range Interpretation [...] POCT U APPEAR (test code = 3267) [facility] URINALYSIS W SPECIFIC [id number] 18:17:00 Test Item Value Reference Range Interpretation [...] POCT U APPEAR (test code = 3267) [facility] [id number] 21:13:00 Test Item Value Reference Range Interpretation [...] U APPEAR (test code = 3267) . [facility] [id number] 19:38:00 Test Item Value Reference Range Interpretation [...] hours toconfirm . - XR CHEST 1 [id number] 18:29:00 FAX: Silvana Anthony [phone] [place]: St: PRE Name: TANIKA MONTEMAYOR [facility] [place] : 2000 Age/S: 17/F [address] Unit #: [id number] Loc: [place] [address] Phys: Silvana Anthony NP Acct: [id number] Dis Date: Status: PRE ER PHONE #: [phone] Exam Date: 06/13/20181817 FAX #: [phone] Reason: sob EXAMS: CPT CODE: [id number] XR CHEST 1 V 27534 Location code: B2 Chest 1 view Indication: [...] : By: [email or web address] PAGE 1 Signed Report FAX:Silvana Anthony [phone] [place]: St: PRE Name: TANIKA MONTEMAYOR [facility] : 2000 Age/S: 17/F [address] Unit #: [id number] Loc: [place] [address] Phys: GabrielleSilvana Reddy LUPIS Acct: [id number] Dis Date: Status: PRE ER PHONE #: [phone] Exam Date: 06/13/2018 1818 FAX #: [phone] Reason: sob EXAMS: CPT CODE: [id number] XR CHEST 1 V 57789 (Continued) Orig Print D/T: S: 06/13/2018 (1832) PAGE 2 Signed Report- XR ANKLE 3 + V [id number] 17:13:00 [place]: St: REG -- Name: TANIKA MONTEMAYOR [facility] : 2000 Age/S: 17/F [address] Unit #: [id number] Loc: [place] [address] Phys: Juan David Jalloh Acct: [id number] Dis Date: Status: REG ER PHONE #:[phone] Exam Date: 05/15/2018 1648 FAX #: [phone] Reason: rolled ankle, pain, lateral aspect EXAMS: CPT CODE: [id number] XR ANKLE 3 + V RT 99486 CLINICAL INFORMATION: Injury accident. Rolled ankle. Pain.. [...] at 1713 Reported and signed by: Umair Chavez MD CC: Technologist: ANGELICA CABRAL Trnalrd Date/Time/By: 05/15/2018 (8863) : By: ShellyAGV PAGE 1 Signed Report [place]: St: REG Name: TANIKA MONTEMAYOR [facility] : 2000 Age/S: 17/F [address] Unit#: [id number] Loc: [place] [address] Phys: Juan David Jalloh Acct: [id number] Dis Date: Status: REG ER PHONE #: [phone] Exam Date: 05/15/2018 1648 FAX #: [phone] Reason: rolled ankle , pain, lateral aspect EXAMS: CPT CODE: [id number] XR ANKLE 3 + V RT 15815 (Continued) Orig Print D/T: S: 05/15/2018 (8087) PAGE 2 Signed Report Notes Date/Time Note Provider Source 2018-06-13 18:18:00-00:00 [facility] ([facility]) EMERGENCY PROVIDER REPORT REPORT#:[id number] REPORT STATUS: Signed DATE:06/13/18 TIME: 1817 PATIENT: TANIKA MONTEMAYOR UNIT #: [id number] ROOM/BED: AGE: 17 SEX: F PCP PHYS: DOES_NOT KNOW SERVICE AUTHOR: Silvana Anthony SALES AND PRODUCTION MANAGER * ALL edits or amendments must be made on the Boxer/computer document * Silvana Anthony 06/13/181817: HPI-Dyspnea/Wheezing General Confirmed Patient Yes PCP none Presentation Chief Complaint Asthma attack, Shortness of iwona th, Wheezing Hx Obtained From Patient )( Sudden in Onset? Yes Onset Occurred Yesterday Symptom Duration Constant Progression since Onset Constant, Rapidly worsen ing Caused by No trauma by history Location None Severity: Current No pain currently Associated with Denies: Anxiety, Calf pain, Chest pain, Cough, Diaphoresis, Fever, Hemoptysis, Leg pain, Leg swelling, Loss of consciousness, N phong congestion, Nausea, Numbness, perioral, Numbness, hands, Numbness, f eet, Sore throat, Vomiting, Wheeze. Context Recent Healthcare No recent doctor visit, No rec ent hospitalization /Sexual Hx Last Menstrual Period 05/07/18 Risk-Dyspnea/Wheezing Risk Stratification Coronary Artery Disease Risk factors reviewed, D iabetes mellitus (pre) Review of Systems Focused Review of Systems Constitutional Denies: Chills, Fever, Lethargy. Ears/Nose/Throat Denies: Earache bilat, Nasal congestion, Sore th roat. Respiratory Reports: Shortness of breath, Wheezing. Denies: Cough, non-productive. Cardiovascular Denies: Chest pain, Syncope. Musculoskeletal Denies: Back pain, Extremity pain. Skin Denies: Diaphoresis, Rash. Allergy/Immun Denies: Hives, Itching. Additional Review of Systems GI Denies: Abdominal pain, Constipation, Diarrhea, Rectal pain, Vomiting. Past Medical History - Adult Stated Complaint SHORTNESS OF BREATH Allergies Coded Allergies: No Known Allergies (02/20/16) Review of Nursing Notes Rev avail, and agree Past Medical History: Reports: Asthma, Diabetes mellitus (pre-dm), Sei zure disorder. Alcohol Use Denies EtOH use Drug Use Denies recreational drugs Smoking status for patients 13 years old or olde r: Never Smoker Other Social History Local resident, Good social support Occupation student Ambulatory Status Independent Physical Exam Vital Signs Vital Signs First Documented: Result Date Time Pulse Ox 97 06/13 1806 B/P 125/79 06/13 1806 B/P Mean 94.3 06/13 1806 Temp 36.4 06/13 1806 Pulse 84 06/13 180 Resp 20 06/13 180 O2 Delivery Nasal cannula 06/13 1822 O2 Flow Rate 2.051586 06/13 1822 Last Documented: Result Date Time Pulse Ox 98 06/14 1927 B/P 154/65 06/14 1927 B/P Mean 94.7 06/14 1927 Temp 36.6 06/14 1927 Pulse 94 06/14 1927 Resp 18 06/14 1927 O2 Delivery Nasal cannula 06/13 1824 O2 Flow Rate 4.514718 06/13 1824 Review of Vital Signs Reviewed Focused PE General/Const General/Const Awake, Alert Ears/Nose/Throat Ears/Nose/Throat Airway patent, Mucous membrane s moist, Pharynx NL MS Neck Neck Atraumatic, Supple, No meningismus, Full r helene of motion, No swelling, Non-tender, No masses Resp/Chest Respiratory/Chest Atraumatic, No rales, No rhon chi, No stridor, No chest tenderness, No chest wall deformity, No crepitus Resp Distress/Stridor Resp distress moderate, Speaks phrases. Negativ e: Speaks words only, Agonal respiration, Intubated. Wheezing/Retractions Wheeze insp/exp diffuse, Wheezing expiratory, W heezing inspiratory, Wheezing moderate, Retractions mild. Negative: Nasal flar ing. Cardiovascular Cardiovascular Heart rate NL, Regular rhythm, H eart sounds NL, Peripheral circulation NL Abdomen/GI Abdomen/GI Soft, Non-tender, No guarding, No re bound MS Back Back Inspection NL, Non-tender, No CVA tenderne ss MS Lower Extrem Lower Ext/Pelvis/MS Inspection NL, No swelling, Non-tender, No erythema, No deformity, Neurologic intact, No edema Skin Skin Color NL, No rash, Warm, Dry, Turgor NL Neurologic Neurologic Oriented X3, Speech NL, No motor def icits, No sensory deficits Additional PE Psychiatric Psychiatric Affect NL, Mood NL, Not suicidal, Not homicidal, No hallucinations Interpretation Diagnostics Lab Results Interpretation Results Laboratory Tests: 06/13 1822 Chemistry Beta HCG, Quant (0 - 4.9 IU/L) <5.0 Recent Impressions: RADIOLOGY - XR CHEST 1 V 06/13 1813 Report Impression - Status: SIGNED Entered: 06/13/2018 183 Impression: 1. No radiographic evidence of acute cardiopulmo nary disease. Impression By: Daljit Meredith MD Imaging Statement Radiographic studies reviewed and considered in the medical decision-making. Point of Care Testing Pulse Oximetry Pulse Ox % 97 On: Room air Interpretation Pulse oximetry normal Time 1807 Re-Evaluation MDM Free Text MDM Notes Free Text MDM Notes Patient has improved and is back to base line, pt reports that she feels better after her duoneb x3 treatmen ts and solumedrol 125mg IVP. Pt chest xray clear, pt has proair inhaler at home but needs a refill. P t will be given rx for prednisone for 4 more days. Pt encouraged to rest, increase oral fluids and stay away from asthma triggers in cluding smoke. Pt feels good enough to go home, pcp handout given and f/u with 2 them in 2 days, als o gave pt pulmonary info )( Re-Evaluation/Progress #1 Time of Re-Eval 1906 )( Re-Eval Status Improved Re-Eval Resp/Chest Mild wheezing Treatment Summary Combined albut atrovent, Stero id therapy Plan Post Re-Eval Plan observe Re-Evaluation/Progress #2 Time of Eval 1929 Re-Eval Status Improved Re-Eval Resp/Chest Breath sounds normal, No whee zing Treatment Summary Combined albut atrovent (x3), Steroid therapy Pain Re-Evaluation Denies pain ED Course Medication(s) Ordered Medication(s) Ordered: Autonomic Drugs Sig/[place] Start time Last Medication Dose Route Stop Time Status Admin Albuterol/Ipratropium 3 ML Q15M 06/13 1814 DC 0 06/13 INH 06/13 1846 182 Hormones And Synthetic Substit Sig/[place] Start time Last Medication Dose Route Stop Time Status Admin Methylprednisolone 125 MG X1ED STA 06/13 1806 D C 06/13 Sodium Succinate IV 06/14 1807 181 Differential Diagnosis Differential Diagnosis Airway obstructio n, Allergic reaction, Anxiety, Asthma, Bronchitis, Foreign body airway, Pneumonia Patient Discharge Departure Vital Signs/Condition Vital Signs First Documented: Result Date Time Pulse Ox 97 06/13 1806 B/P 125/79 06/13 1806 B/P Mean 94.3 06/13 1806 Temp 36.4 06/13 1806 Pulse 84 06/13 1806 Resp 20 06/13 1806 O2 Delivery Nasal cannula 06/13 1822 O2 Flow Rate 2.264794 06/13 1822 Last Documented: Result Date Time Pulse Ox 98 06/14 1927 B/P 154/65 06/14 1927 B/P Mean 94.7 06/14 1927 Temp 36.6 06/14 1927 Pulse 94 06/14 1927 Resp 18 06/14 1927 O2 Delivery Nasal cannula 06/13 1824 O2 Flow Rate 4.425504 06/13 1824 All vital signs available at the time of this en try have been reviewed. Condition Stable Clinical Impression Clinical Impression Primary Impression: Asthma exacerbation Disposition Decision Discharge )( Discharged to Home Yes )( Time 1930 )( Date 06/13/18 Discharge/Care Plan Counseled Regarding Diagnosi s, Imaging studies, Prescriptions, Need for follow- up, When to return to ED Prescriptions proair, prednisone Prescriptions Reviewed Risks, Benefits, Alternat [place] treatment Discharge Note I have spoken with the patie nt and/or caregivers. I have explained the patient's condition, diagnoses and eleanor atment plan based on the information available to me at this time. I have answered the patient's and/ or caregiver's questions and addressed any concerns. The patient and/or careg cheyanne have as good an understanding of the patient 's diagnosis, condition and treatment plan as can be expected at this point. The vital signs have bee n stable. The patient's condition is stable and appr opriate for discharge from the emergency department. The patient will pursue further outpatient evalu ation with the primary care physician or other designated or consulting phys ician as outlined in the discharge instructions. The patient and/or caregivers are agreeable to this plan of care and follow-up instructions have been exp lained in detail. The patient and/or caregivers have received these instructio ns in written format and have expressed an understanding of the discharge inst ructions. The patient and/or caregivers are aware that any significant change in condition or worsening of symptoms should prompt an immediate return to [facility] or the closest emergency department or a call to 911. Quality Measures BP F/U for HTN Referred for BP f/u < 4wk Smoking Cessation Screened, non user Tobacco Screening/Cessation 18 years or older, D enies tobacco use Carmina Cisneros 06/14/18 1024: HPI-Dyspnea/Wheezing General Initial Greet Date/Time 06/13/181806 Physical Exam Vital Signs Vital Signs Interpretation Diagnostics Lab Results Interpretation Results Re-Evaluation [facility] ED Course Medication(s) Ordered Patient Discharge Departure Vital Signs/Condition Vital Signs Supervising Physician Note MidLv Saw Pt Alone I have reviewed the PA/SALES AND PRODUCTION MANAGER's note and plan of car e. I was available for consultation as needed at al l times during the patient's visit in the emergency department. I agree with the clinical impression , plan and disposition. Electronically Signed by Leti Cisneros MD on at [facility] RPT #:[id number] END OF REPORT 2018-06-13 18:18:00-00:00 [facility] ([facility]) EMERGENCY PROVIDER REPORT REPORT#:[id number] REPORT STATUS: Signed DATE:06/13/18 TIME: 1817 PATIENT: TANIKA MONTEMAYOR UNIT #: [id number] ROOM/BED: AGE: 17 SEX: F PCP PHYS: DOES_NOT KNOW SERVICE AUTHOR: Silvana Anthony SALES AND PRODUCTION MANAGER * ALL edits or amendments must be made on the Boxer/computer document * Silvana Anthony 06/13/181817: HPI-Dyspnea/Wheezing General Confirmed Patient Yes Initial Greet Date/Time 06/13/181806 PCP none Presentation Chief Complaint Asthma attack, Shortness of iwona th, Wheezing Hx Obtained From Patient )( Sudden in Onset? Yes Onset Occurred Yesterday Symptom Duration Constant Progression since Onset Constant, Rapidly worsen ing Caused by No trauma by history Location None Severity: Current No pain currently Associated with Denies: Anxiety, Calf pain, Chest pain, Cough, Diaphoresis, Fever, Hemoptysis, Leg pain, Leg swelling, Loss of consciousness, N phong congestion, Nausea, Numbness, perioral, Numbness, hands, Numbness, f eet, Sore throat, Vomiting, Wheeze. Context Recent Healthcare No recent doctor visit, No rec ent hospitalization /Sexual Hx Last Menstrual Period 05/07/18 Free Text HPI Notes Free Text HPI Notes 17 year old female presents to the ER with her plans of having an asthma attack since last night. Pt reports that last ni ght she started coughing and wheezing and used her pro air inhaler an d it seem to help but this morning the wheezing got worse and the inhaler did n ot help. Patient presents to the ER in moderate distress, patient i s able to speak in complete sentences although gets short of breath easy. Patien t denies any recent travel, fever, nausea, vomiting, diarrhea or chest pain. Pt does not have a nebul izer at the house just her inhaler only, pt has no pcp and hasn't seen a specialist since she was a child. Risk-Dyspnea/Wheezing Risk Stratification Coronary Artery Disease Risk factors reviewed, Taj iabetes mellitus (pre) Review of Systems Focused Review of Systems Constitutional Denies: Chills, Fever, Lethargy. Ears/Nose/Throat Denies: Earache bilat, Nasal congestion, Sore th roat. Respiratory Reports: Shortness of breath, Wheezing. Denies: Cough, non-productive. Cardiovascular Denies: Chest pain, Syncope. Musculoskeletal Denies: Back pain, Extremity pain. Skin Denies: Diaphoresis, Rash. Allergy/Immun Denies: Hives, Itching. Additional Review of Systems GI Denies: Abdominal pain, Constipation, Diarrhea, Rectal pain, Vomiting. Past Medical History - Adult Stated Complaint SHORTNESS OF BREATH Allergies Coded Allergies: No Known Allergies (02/20/16) Review of Nursing Notes Rev avail, and agree Past Medical History: Reports: Asthma, Diabetes mellitus (pre-dm), Sei zure disorder. Alcohol Use Denies EtOH use Drug Use Denies recreational drugs Smoking status for patients 13 years old or olde r: Never Smoker Other Social History Local resident, Good social support Occupation student Ambulatory Status Independent Physical Exam Vital Signs Vital Signs Review of Vital Signs Reviewed Focused PE General/Const General/Const Awake, Alert Ears/Nose/Throat Ears/Nose/Throat Airway patent, Mucous membrane s moist, Pharynx NL MS Neck Neck Atraumatic, Supple, No meningismus, Full r helene of motion, No swelling, Non-tender, No masses Resp/Chest Respiratory/Chest Atraumatic, No rales, No rhon chi, No stridor, No chest tenderness, No chest wall deformity, No crepitus Resp Distress/Stridor Resp distress moderate, Speaks phrases. Negativ e: Speaks words only, Agonal respiration, Intubated. Wheezing/Retractions Wheeze insp/exp diffuse, Wheezing expiratory, W heezing inspiratory, Wheezing moderate, Retractions mild. Negative: Nasal flar ing. Cardiovascular Cardiovascular Heart rate NL, Regular rhythm, H eart sounds NL, Peripheral circulation NL Abdomen/GI Abdomen/GI Soft, Non-tender, No guarding, No re bound MS Back Back Inspection NL, Non-tender, No CVA tenderne ss MS Lower Extrem Lower Ext/Pelvis/MS Inspection NL, No swelling, Non-tender, No erythema, No deformity, Neurologic intact, No edema Skin Skin Color NL, No rash, Warm, Dry, Turgor NL Neurologic Neurologic Oriented X3, Speech NL, No motor def icits, No sensory deficits Additional PE Psychiatric Psychiatric Affect NL, Mood NL, Not suicidal, N ot homicidal, No hallucinations Interpretation Diagnostics Lab Results Interpretation Results Laboratory Tests: 06/13 1822 Chemistry Beta HCG, Quant (0 - 4.9 IU/L) <5.0 Recent Impressions: RADIOLOGY - XR CHEST 1 V 06/13 1813 Report Impression - Status: SIGNED Entered: 06/13/20181831 Impression: 1. No radiographic evidence of acute cardiopulmo nary disease. Impression By: Daljit Meredith MD Imaging Statement Radiographic studies reviewed and considered in the medical decision-making. Point of Care Testing Pulse Oximetry Pulse Ox % 97 On: Room air Interpretation Pulse oximetry normal Time 1807 Re-Evaluation MDM Free Text MDM Notes Free Text MDM Notes Patient has improved and is back to base line, pt reports that she feels better after her duoneb x3 treatmen ts and solumedrol 125mg IVP. Pt chest xray clear, pt has proair inhaler at home but needs a refill. P t will be given rx for prednisone for 4 more days. Pt encouraged to rest, increase oral fluids and stay away from asthma triggers in cluding smoke. Pt feels good enough to go home, pcp handout given and f/u with 2 them in 2 days, als o gave pt pulmonary info )( Re-Evaluation/Progress #1 Time of Re-Eval 1906 )( Re-Eval Status Improved Re-Eval Resp/Chest Mild wheezing Treatment Summary Combined albut atrovent, Stero id therapy Plan Post Re-Eval Plan observe Re-Evaluation/Progress #2 Time of Ev1929 Re-Eval Status Improved Re-Eval Resp/Chest Breath sounds normal, No whee zing Treatment Summary Combined albut atrovent (x3), Steroid therapy Pain Re-Evaluation Denies pain ED Course Medication(s) Ordered Medication(s) Ordered: Autonomic Drugs Sig/[place] Start time Last Medication Dose Route Stop Time Status Admin Albuterol/Ipratropium 3 ML Q15M 06/13 1814 DC 0 06/13 INH 06/13 184 182 Hormones And Synthetic Substit Sig/[place] Start time Last Medication Dose Route Stop Time Status Admin Methylprednisolone 125 MG X1ED STA 06/13 1806 D C 06/13 Sodium Succinate IV 06/13 Differential Diagnosis Differential Diagnosis Airway obstructio n, Allergic reaction, Anxiety, Asthma, Bronchitis, Foreign body airway, Pneumonia Patient Discharge Departure Vital Signs/Condition Vital Signs Condition Stable Clinical Impression Clinical Impression Primary Impression: Asthma exacerbation Disposition Decision Discharge )( Discharged to Home Yes )( Time 1929 )( Date 06/13/18 Discharge/Care Plan Counseled Regarding Diagnosi s, Imaging studies, Prescriptions, Need for follow- up, When to return to ED Prescriptions proair, prednisone Prescriptions Reviewed Risks, Benefits, Alternat [place] treatment Discharge Note I have spoken with the patie nt and/or caregivers. I have explained the patient's condition, diagnoses and eleanor atment plan based on the information available to me at this time. I have answered the patient's and/ or caregiver's questions and addressed any concerns. The patient and/or careg cheyanne have as good an understanding of the patient 's diagnosis, condition and treatment plan as can be expected at this point. The vital signs have bee n stable. The patient's condition is stable and appr opriate for discharge from the emergency department. The patient will pursue further outpatient evalu ation with the primary care physician or other designated or consulting phys ician as outlined in the discharge instructions. The patient and/or caregivers are agreeable to this plan of care and follow-up instructions have been exp lained in detail. The patient and/or caregivers have received these instructio ns in written format and have expressed an understanding of the discharge inst ructions. The patient and/or caregivers are aware that any significant change in condition or worsening of symptoms should prompt an immediate return to [facility] or the closest emergency department or a call to 911. Quality Measures BP F/U for HTN Referred for BP f/u < 4wk Smoking Cessation Screened, non user Tobacco Screening/Cessation 18 years or older, D enies tobacco use Carmina Cisneros 06/14/18 1024: Physical Exam Vital Signs Vital Signs First Documented: Result Date Time Pulse Ox 97 06/13 1806 B/P 125/79 06/13 1806 B/P Mean 94.3 06/13 180 Temp 97.5 06/13 180 Pulse 84 06/13 180 Resp 20 06/13 180 O2 Delivery Nasal cannula 06/13 182 O2 Flow Rate 2.878120 06/13 1822 Last Documented: Result Date Time Pulse Ox 98 06/13 192 B/P 154/65 06/13 192 B/P Mean 94.7 06/13 192 Temp 97.9 06/14 1927 Pulse 94 06/14 1927 Resp 18 06/13 192 O2 Delivery Nasal cannula 06/13 182 O2 Flow Rate 4.978667 06/13 182 Interpretation Diagnostics Lab Results Interpretation Results Re-Evaluation MDM ED Course Medication(s) Ordered Patient Discharge Departure Vital Signs/Condition Vital Signs First Documented: Result Date Time Pulse Ox 97 06/13 180 B/P 125/79 06/13 180 B/P Mean 94.3 06/13 1806 Temp 97.5 06/13 180 Pulse 84 06/13 180 Resp 20 06/13 180 O2 Delivery Nasal cannula 06/13 1822 O2 Flow Rate 2.797893 06/13 1822 Last Documented: Result Date Time Pulse Ox 98 06/13 192 B/P 154/65 06/13 192 B/P Mean 94.7 06/14 1927 Temp 97.9 06/13 192 Pulse 94 06/14 1927 Resp 18 06/14 1927 O2 Delivery Nasal cannula 06/13 182 O2 Flow Rate 4.377217 06/13 182 All vital signs available at the time of this en try have been reviewed. Supervising Physician Note MidLv Saw Pt Alone I have reviewed the PA/SALES AND PRODUCTION MANAGER's note and plan of car e. I was available for consultation as needed at al l times during the patient's visit in the emergency department. I agree with the clinical impression , plan and disposition. Electronically Signed by Leti Cisneros MD on at [facility] RPT #:[id number] END OF REPORT 2018-06-13 18:18:00-00:00 [facility] EMERGENCY PROVIDER REPORT REPORT#:[id number] REPORT STATUS: Signed DATE:06/13/18 TIME: 1817 PATIENT: TANIKA MONTEMAYOR UNIT #: [id number] ROOM/BED: AGE: 17 SEX: F PCP PHYS: DOES_NOT KNOW SERVICE AUTHOR: Silvana Anthony SALES AND PRODUCTION MANAGER * ALL edits or amendments must be made on the [employer]/computer document * Silvana Anthony 06/13/181817: HPI-Dyspnea/Wheezing General Confirmed Patient Yes Initial Greet Date/Time 06/13/181806 PCP none Presentation Chief Complaint Asthma attack, Shortness of iwona th, Wheezing Hx Obtained From Patient )( Sudden in Onset? Yes Onset Occurred Yesterday Symptom Duration Constant Progression since Onset Constant, Rapidly worsen ing Caused by No trauma by history Location None Severity: Current No pain currently Associated with Denies: Anxiety, Calf pain, Chest pain, Cough, Diaphoresis, Fever, Hemoptysis, Leg pain, Leg swelling, Loss of consciousness, N phong congestion, Nausea, Numbness, perioral, Numbness, hands, Numbness, f eet, Sore throat, Vomiting, Wheeze. Context Recent Healthcare No recent doctor visit, No rec ent hospitalization /Sexual Hx Last Menstrual Period 05/07/18 Free Text HPI Notes Free Text HPI Notes 17 year old female presents to the ER with her plans of having an asthma attack since last night. Pt reports that last ni ght she started coughing and wheezing and used her pro air inhaler an d it seem to help but this morning the wheezing got worse and the inhaler did n ot help. Patient presents to the ER in moderate distress, patient i s able to speak in complete sentences although gets short of breath easy. Patien t denies any recent travel, fever, nausea, vomiting, diarrhea or chest pain. Pt does not have a nebul izer at the house just her inhaler only, pt has no pcp and hasn't seen a specialist since she was a child. Risk-Dyspnea/Wheezing Risk Stratification Coronary Artery Disease Risk factors reviewed, Taj culver mellitus (pre) Review of Systems Focused Review of Systems Constitutional Denies: Chills, Fever, Lethargy. Ears/Nose/Throat Denies: Earache bilat, Nasal congestion, Sore th roat. Respiratory Reports: Shortness of breath, Wheezing. Denies: Cough, non-productive. Cardiovascular Denies: Chest pain, Syncope. Musculoskeletal Denies: Back pain, Extremity pain. Skin Denies: Diaphoresis, Rash. Allergy/Immun Denies: Hives, Itching. Additional Review of Systems GI Denies: Abdominal pain, Constipation, Diarrhea, Rectal pain, Vomiting. Past Medical History - Adult Stated Complaint SHORTNESS OF BREATH Allergies Coded Allergies: No Known Allergies (02/20/16) Review of Nursing Notes Rev avail, and agree Past Medical History: Reports: Asthma, Diabetes mellitus (pre-dm), Sei zure disorder. Alcohol Use Denies EtOH use Drug Use Denies recreational drugs Smoking status for patients 13 years old or olde r: Never Smoker Other Social History Local resident, Good social support Occupation student Ambulatory Status Independent Physical Exam Vital Signs Vital Signs Review of Vital Signs Reviewed Focused PE General/Const General/Const Awake, Alert Ears/Nose/Throat Ears/Nose/Throat Airway patent, Mucous membrane s moist, Pharynx NL MS Neck Neck Atraumatic, Supple, No meningismus, Full range of motion, No swelling, Non-tender, No masses Resp/Chest Respiratory/Chest Atraumatic, No rales, No rhon chi, No stridor, No chest tenderness, No chest wall deformity, No crepitus Resp Distress/Stridor Resp distress moderate, Speaks phrases. Negativ e: Speaks words only, Agonal respiration, Intubated. Wheezing/Retractions Wheeze insp/exp diffuse, Wheezing expiratory, W heezing inspiratory, Wheezing moderate, Retractions mild. Negative: Nasal flar ing. Cardiovascular Cardiovascular Heart rate NL, Regular rhythm, H eart sounds NL, Peripheral circulation NL Abdomen/GI Abdomen/GI Soft, Non-tender, No guarding, No re bound MS Back Back Inspection NL, Non-tender, No CVA tenderne ss MS Lower Extrem Lower Ext/Pelvis/MS Inspection NL, No swelling, Non-tender, No erythema, No deformity, Neurologic intact, No edema Skin Skin Color NL, No rash, Warm, Dry, Turgor NL Neurologic Neurologic Oriented X3, Speech NL, No motor def icits, No sensory deficits Additional PE Psychiatric Psychiatric Affect NL, Mood NL, Not suicidal, N ot homicidal, No hallucinations Interpretation Diagnostics Lab Results Interpretation Results Laboratory Tests: 06/13 1822 Chemistry Beta HCG, Quant (0 - 4.9 IU/L) <5.0 Recent Impressions: RADIOLOGY - XR CHEST 1 V 06/13 1813 Report Impression - Status: SIGNED Entered: 06/13/2018 1832 Impression: 1. No radiographic evidence of acute cardiopulmo nary disease. Impression By: Daljit Meredith MD Imaging Statement Radiographic studies reviewed and considered in the medical decision-making. Point of Care Testing Pulse Oximetry Pulse Ox % 97 On: Room air Interpretation Pulse oximetry normal Time 1806 Re-Evaluation MDM Free Text MDM Notes Free Text MDM Notes Patient has improved and is back to base line, pt reports that she feels better after her duoneb x3 treatmen ts and solumedrol 125mg IVP. Pt chest xray clear, pt has proair inhaler at home but needs a refill. P t will be given rx for prednisone for 4 more days. Pt encouraged to rest, increase oral fluids and stay away from asthma triggers in cluding smoke. Pt feels good enough to go home, pcp handout given and f/u with 2 them in 2 days, als o gave pt pulmonary info )( Re-Evaluation/Progress #1 Time of Re-Eval 1906 )( Re-Eval Status Improved Re-Eval Resp/Chest Mild wheezing Treatment Summary Combined albut atrovent, Stero id therapy Plan Post Re-Eval Plan observe Re-Evaluation/Progress #2 Time of Eval 1929 Re-Eval Status Improved Re-Eval Resp/Chest Breath sounds normal, No whee zing Treatment Summary Combined albut atrovent (x3), Steroid therapy Pain Re-Evaluation Denies pain ED Course Medication(s) Ordered Medication(s) Ordered: Autonomic Drugs Sig/[place] Start time Last Medication Dose Route Stop Time Status Admin Albuterol/Ipratropium 3 ML Q15M 06/13 1814 DC 0 06/13 INH 06/13 1846 182 Hormones And Synthetic Substit Sig/[place] Start time Last Medication Dose Route Stop Time Status Admin Methylprednisolone 125 MG X1ED STA 06/13 1806 D C 06/13 Sodium Succinate IV 06/14 1807 181 Differential Diagnosis Differential Diagnosis Airway obstructio n, Allergic reaction, Anxiety, Asthma, Bronchitis, Foreign body airway, Pneumonia Patient Discharge Departure Vital Signs/Condition Vital Signs Condition Stable Clinical Impression Clinical Impression Primary Impression: Asthma exacerbation Disposition Decision Discharge )( Discharged to Home Yes )( Time 1929 )( Date 06/13/18 Discharge/Care Plan Counseled Regarding Diagnosi s, Imaging studies, Prescriptions, Need for follow- up, When to return to ED Prescriptions proair, prednisone Prescriptions Reviewed Risks, Benefits, Alternat [place] treatment Discharge Note I have spoken with the patie nt and/or caregivers. I have explained the patient's condition, diagnoses and eleanor atment plan based on the information available to me at this time. I have answered the patient's and/ or caregiver's questions and addressed any concerns. The patient and/or careg cheyanne have as good an understanding of the patient 's diagnosis, condition and treatment plan as can be expected at this point. The vital signs have bee n stable. The patient's condition is stable and appr opriate for discharge from the emergency department. The patient will pursue further outpatient evalu ation with the primary care physician or other designated or consulting phys ician as outlined in the discharge instructions. The patient and/or caregivers are agreeable to this plan of care and follow-up instructions have been exp lained in detail. The patient and/or caregivers have received these instructio ns in written format and have expressed an understanding of the discharge inst ructions. The patient and/or caregivers are aware that any significant change in condition or worsening of symptoms should prompt an immediate return to [facility] or the closest emergency department or a call to 911. Quality Measures BP F/U for HTN Referred for BP f/u < 4wk Smoking Cessation Screened, non user Tobacco Screening/Cessation 18 years or older, D enies tobacco use Carmina Cisneros 06/14/18 1024: Physical Exam Vital Signs Vital Signs First Documented: Result Date Time Pulse Ox 97 06/13 1806 B/P 125/79 06/13 1806 B/P Mean 94.3 06/13 1806 Temp 97.5 06/13 1806 Pulse 84 06/13 1806 Resp 20 06/13 1806 O2 Delivery Nasal cannula 06/13 1822 O2 Flow Rate 2.350716 06/13 1822 Last Documented: Result Date Time Pulse Ox 98 06/14 1927 B/P 154/65 06/14 1927 B/P Mean 94.7 06/14 1927 Temp 97.9 06/14 1927 Pulse 94 06/14 1927 Resp 18 04/21 1928 O2 Delivery Nasal cannula 06/13 1824 O2 Flow Rate 4.495265 06/13 1824 Interpretation Diagnostics Lab Results Interpretation Results Re-Evaluation MDM ED Course Medication(s) Ordered Patient Discharge Departure Vital Signs/Condition Vital Signs First Documented: Result Date Time Pulse Ox 97 06/13 1806 B/P 125/79 06/13 1806 B/P Mean 94.3 06/13 1806 Temp 97.5 06/13 1806 Pulse 84 06/13 180 Resp 20 06/13 180 O2 Delivery Nasal cannula 06/13 1822 O2 Flow Rate 2.102588 06/13 1822 Last Documented: Result Date Time Pulse Ox 98 06/14 1927 B/P 154/65 06/14 1927 B/P Mean 94.7 06/14 1927 Temp 97.9 06/14 1927 Pulse 94 06/14 1927 Resp 18 06/14 1927 O2 Delivery Nasal cannula 06/13 1824 O2 Flow Rate 4.709223 06/13 1824 All vital signs available at the time of this en try have been reviewed. Supervising Physician Note MidLv Saw Pt Alone I have reviewed the PA/SALES AND PRODUCTION MANAGER's note and plan of car e. I was available for consultation as needed at al l times during the patient's visit in the emergency department. I agree with the clinical impression , plan and disposition. Electronically Signed by Leti Cisneros MD on at 1024 at 1610 RPT #:[id number] END OF REPORT 2018-06-13 18:18:00-00:00 [facility] EMERGENCY PROVIDER REPORT REPORT#:[id number] REPORT STATUS: Signed DATE:06/13/18 TIME: 1817 PATIENT: TANIKA MONTEMAYOR UNIT #: [id number] ROOM/BED: AGE: 17 SEX: F PCP PHYS: DOES_NOT KNOW SERVICE AUTHOR: Silvana Anthony SALES AND PRODUCTION MANAGER * ALL edits or amendments must be made on the el [employer]/computer document * Silvana Anthony 06/13/181817: HPI-Dyspnea/Wheezing General Confirmed Patient Yes PCP none Presentation Chief Complaint Asthma attack, Shortness of iwona th, Wheezing Hx Obtained From Patient )( Sudden in Onset? Yes Onset Occurred Yesterday Symptom Duration Constant Progression since Onset Constant, Rapidly worsen ing Caused by No trauma by history Location None Severity: Current No pain currently Associated with Denies: Anxiety, Calf pain, Chest pain, Cough, Diaphoresis, Fever, Hemoptysis, Leg pain, Leg swelling, Loss of consciousness, N phong congestion, Nausea, Numbness, perioral, Numbness, hands, Numbness, f eet, Sore throat, Vomiting, Wheeze. Context Recent Healthcare No recent doctor visit, No rec ent hospitalization /Sexual Hx Last Menstrual Period 05/07/18 Free Text HPI Notes Free Text HPI Notes 17 year old female presents to the ER with her plans of having an asthma attack since last night. Pt reports that last ni ght she started coughing and wheezing and used her pro air inhaler an d it seem to help but this morning the wheezing got worse and the inhaler did n ot help. Patient presents to the ER in moderate distress, patient i s able to speak in complete sentences although gets short of breath easy. Patien t denies any recent travel, fever, nausea, vomiting, diarrhea or chest pain. Pt does not have a nebul izer at the house just her inhaler only, pt has no pcp and hasn't seen a specialist since she was a child. Risk-Dyspnea/Wheezing Risk Stratification Coronary Artery Disease Risk factors reviewed, D iabetes mellitus (pre) Review of Systems Focused Review of Systems Constitutional Denies: Chills, Fever, Lethargy. Ears/Nose/Throat Denies: Earache bilat, Nasal congestion, Sore th roat. Respiratory Reports: Shortness of breath, Wheezing. Denies: Cough, non-productive. Cardiovascular Denies: Chest pain, Syncope. Musculoskeletal Denies: Back pain, Extremity pain. Skin Denies: Diaphoresis, Rash. Allergy/Immun Denies: Hives, Itching. Additional Review of Systems GI Denies: Abdominal pain, Constipation, Diarrhea, Rectal pain, Vomiting. Past Medical History - Adult Stated Complaint SHORTNESS OF BREATH Allergies Coded Allergies: No Known Allergies (02/20/16) Review of Nursing Notes Rev avail, and agree Past Medical History: Reports: Asthma, Diabetes mellitus (pre-dm), Sei zure disorder. Alcohol Use Denies EtOH use Drug Use Denies recreational drugs Smoking status for patients 13 years old or olde r: Never Smoker Other Social History Local resident, Good social support Occupation student Ambulatory Status Independent Physical Exam Vital Signs Vital Signs Review of Vital Signs Reviewed Focused PE General/Const General/Const Awake, Alert Ears/Nose/Throat Ears/Nose/Throat Airway patent, Mucous membrane s moist, Pharynx NL MS Neck Neck Atraumatic, Supple, No meningismus, Full r helene of motion, No swelling, Non-tender, No masses Resp/Chest Respiratory/Chest Atraumatic, No rales, No rhon chi, No stridor, No chest tenderness, No chest wall deformity, No crepitus Resp Distress/Stridor Resp distress moderate, Speaks phrases. Negativ e: Speaks words only, Agonal respiration, Intubated. Wheezing/Retractions Wheeze insp/exp diffuse, Wheezing expiratory, W heezing inspiratory, Wheezing moderate, Retractions mild. Negative: Nasal flar ing. Cardiovascular Cardiovascular Heart rate NL, Regular rhythm, H eart sounds NL, Peripheral circulation NL Abdomen/GI Abdomen/GI Soft, Non-tender, No guarding, No re bound MS Back Back Inspection NL, Non-tender, No CVA tenderne ss MS Lower Extrem Lower Ext/Pelvis/MS Inspection NL, No swelling, Non-tender, No erythema, No deformity, Neurologic intact, No edema Skin Skin Color NL, No rash, Warm, Dry, Turgor NL Neurologic Neurologic Oriented X3, Speech NL, No motor def icits, No sensory deficits Additional PE Psychiatric Psychiatric Affect NL, Mood NL, Not suicidal, N ot homicidal, No hallucinations Interpretation Diagnostics Lab Results Interpretation Results Laboratory Tests: 06/13 1822 Chemistry Beta HCG, Quant (0 - 4.9 IU/L) <5.0 Recent Impressions: RADIOLOGY - XR CHEST 1 V 06/13 181 Report Impression - Status: SIGNED Entered: 06/13/2018 183 Impression: 1. No radiographic evidence of acute cardiopulmo nary disease. Impression By: Daljit Meredith MD Imaging Statement Radiographic studies reviewed and considered in the medical decision-making. Point of Care Testing Pulse Oximetry Pulse Ox % 97 On: Room air Interpretation Pulse oximetry normal Time 1807 Re-Evaluation MDM Free Text MDM Notes Free Text MDM Notes Patient has improved and is back to base line, pt reports that she feels better after her duoneb x3 treatmen ts and solumedrol 125mg IVP. Pt chest xray clear, pt has proair inhaler at home but needs a refill. P t will be given rx for prednisone for 4 more days. Pt encouraged to rest, increase oral fluids and stay away from asthma triggers in cluding smoke. Pt feels good enough to go home, pcp handout given and f/u with 2 them in 2 days, als o gave pt pulmonary info )( Re-Evaluation/Progress #1 Time of Re-Eval 1906 )( Re-Eval Status Improved Re-Eval Resp/Chest Mild wheezing Treatment Summary Combined albut atrovent, Stero id therapy Plan Post Re-Eval Plan observe Re-Evaluation/Progress #2 Time of Eval 1929 Re-Eval Status Improved Re-Eval Resp/Chest Breath sounds normal, No whee zing Treatment Summary Combined albut atrovent (x3), Steroid therapy Pain Re-Evaluation Denies pain ED Course Medication(s) Ordered Medication(s) Ordered: Autonomic Drugs Sig/[place] Start time Last Medication Dose Route Stop Time Status Admin Albuterol/Ipratropium 3 ML Q15M 06/13 1814 DC 0 06/13 INH 06/13 1846 1825 Hormones And Synthetic Substit Sig/[place] Start time Last Medication Dose Route Stop Time Status Admin Methylprednisolone 125 MG X1ED STA 06/13 1806 D C 06/13 Sodium Succinate IV 06/13 180 1819 Differential Diagnosis Differential Diagnosis Airway obstructio n, Allergic reaction, Anxiety, Asthma, Bronchitis, Foreign body airway, Pneumonia Patient Discharge Departure Vital Signs/Condition Vital Signs Condition Stable Clinical Impression Clinical Impression Primary Impression: Asthma exacerbation Disposition Decision Discharge )( Discharged to Home Yes )( Time 1929 )( Date 06/13/18 Discharge/Care Plan Counseled Regarding Diagnosi s, Imaging studies, Prescriptions, Need for follow- up, When to return to ED Prescriptions proair, prednisone Prescriptions Reviewed Risks, Benefits, Alternat [place] treatment Discharge Note I have spoken with the patie nt and/or caregivers. I have explained the patient's condition, diagnoses and eleanor atment plan based on the information available to me at this time. I have answered the patient's and/ or caregiver's questions and addressed any concerns. The patient and/or careg cheyanne have as good an understanding of the patient 's diagnosis, condition and treatment plan as can be expected at this point. The vital signs have bee n stable. The patient's condition is stable and appr opriate for discharge from the emergency department. The patient will pursue further outpatient evalu ation with the primary care physician or other designated or consulting phys ician as outlined in the discharge instructions. The patient and/or caregivers are agreeable to this plan of care and follow-up instructions have been exp lained in detail. The patient and/or caregivers have received these instructio ns in written format and have expressed an understanding of the discharge inst ructions. The patient and/or caregivers are aware that any significant change in condition or worsening of symptoms should prompt an immediate return to [facility] or the closest emergency department or a call to 911. Quality Measures BP F/U for HTN Referred for BP f/u < 4wk Smoking Cessation Screened, non user Tobacco Screening/Cessation 18 years or older, D enies tobacco use Carmina Cisneros 06/14/18 1024: Physical Exam Vital Signs Vital Signs First Documented: Result Date Time Pulse Ox 97 06/13 1806 B/P 125/79 06/13 180 B/P Mean 94.3 06/13 1806 Temp 97.5 06/13 180 Pulse 84 06/13 180 Resp 20 06/13 180 O2 Delivery Nasal cannula 06/13 182 O2 Flow Rate 2.350186 06/13 182 Last Documented: Result Date Time Pulse Ox 98 06/14 1927 B/P 154/65 06/14 1927 B/P Mean 94.7 06/14 1927 Temp 97.9 06/13 192 Pulse 94 06/13 192 Resp 18 06/13 192 O2 Delivery Nasal cannula 06/13 182 O2 Flow Rate 4.857774 06/13 1825 Interpretation Diagnostics Lab Results Interpretation Results Re-Evaluation MDM ED Course Medication(s) Ordered Patient Discharge Departure Vital Signs/Condition Vital Signs First Documented: Result Date Time Pulse Ox 97 06/13 1806 B/P 125/79 06/13 1807 B/P Mean 94.3 06/13 180 Temp 97.5 06/13 1806 Pulse 84 06/13 1807 Resp 20 06/13 1807 O2 Delivery Nasal cannula 06/13 1822 O2 Flow Rate 2.735941 06/13 1822 Last Documented: Result Date Time Pulse Ox 98 06/14 1927 B/P 154/65 06/14 1927 B/P Mean 94.7 06/14 1927 Temp 97.9 06/14 1927 Pulse 94 06/14 1927 Resp 18 06/14 1927 O2 Delivery Nasal cannula 06/13 1824 O2 Flow Rate 4.144139 06/13 1824 All vital signs available at the time of this en try have been reviewed. Supervising Physician Note MidLv Saw Pt Alone I have reviewed the PA/SALES AND PRODUCTION MANAGER's note and plan of car e. I was available for consultation as needed at al l times during the patient's visit in the emergency department. I agree with the clinical impression , plan and disposition. Roland Catalan 06/15/18 0041: HPI-Dyspnea/Wheezing General Initial Greet Date/Time 06/13/181806 Physical Exam Vital Signs Vital Signs Interpretation Diagnostics Lab Results Interpretation Results Patient Discharge Departure Vital Signs/Condition Vital Signs Supervising Physician Note MidLv Saw Pt Alone I have reviewed the PA/SALES AND PRODUCTION MANAGER's note and plan of car e. I was available for consultation as needed at al l times during the patient's visit in the emergency department. I agree with the clinical impression , plan and disposition. Electronically Signed by Leti Cisneros MD on at 1024 at 1610 RPT #:[id number] END OF REPORT 2018-06-13 18:18:00-00:00 [facility] ([facility]) EMERGENCY PROVIDER REPORT REPORT#:[id number] REPORT STATUS: Signed DATE:06/13/18 TIME: 1817 PATIENT: TANIKA MONTEMAYOR UNIT #: [id number] ROOM/BED: AGE: 17 SEX: F PCP PHYS: DOES_NOT KNOW SERVICE AUTHOR: Silvana Anthony SALES AND PRODUCTION MANAGER * ALL edits or amendments must be made on the el [employer]/computer document * Silvana Anthony 06/13/181817: HPI-Dyspnea/Wheezing General Confirmed Patient Yes PCP none Presentation Chief Complaint Asthma attack, Shortness of iwona th, Wheezing Hx Obtained From Patient )( Sudden in Onset? Yes Onset Occurred Yesterday Symptom Duration Constant Progression since Onset Constant, Rapidly worsen ing Caused by No trauma by history Location None Severity: Current No pain currently Associated with Denies: Anxiety, Calf pain, Chest pain, Cough, Diaphoresis, Fever, Hemoptysis, Leg pain, Leg swelling, Loss of consciousness, N phong congestion, Nausea, Numbness, perioral, Numbness, hands, Numbness, f eet, Sore throat, Vomiting, Wheeze. Context Recent Healthcare No recent doctor visit, No rec ent hospitalization /Sexual Hx Last Menstrual Period 05/07/18 Free Text HPI Notes Free Text HPI Notes 17 year old female presents to the ER with her plans of having an asthma attack since last night. Pt reports that last ni ght she started coughing and wheezing and used her pro air inhaler an d it seem to help but this morning the wheezing got worse and the inhaler did n ot help. Patient presents to the ER in moderate distress, patient i s able to speak in complete sentences although gets short of breath easy. Patien t denies any recent travel, fever, nausea, vomiting, diarrhea or chest pain. Pt does not have a nebul izer at the house just her inhaler only, pt has no pcp and hasn't seen a specialist since she was a child. Risk-Dyspnea/Wheezing Risk Stratification Coronary Artery Disease Risk factors reviewed, D iabetes mellitus (pre) Review of Systems Focused Review of Systems Constitutional Denies: Chills, Fever, Lethargy. Ears/Nose/Throat Denies: Earache bilat, Nasal congestion, Sore th roat. Respiratory Reports: Shortness of breath, Wheezing. Denies: Cough, non-productive. Cardiovascular Denies: Chest pain, Syncope. Musculoskeletal Denies: Back pain, Extremity pain. Skin Denies: Diaphoresis, Rash. Allergy/Immun Denies: Hives, Itching. Additional Review of Systems GI Denies: Abdominal pain, Constipation, Diarrhea, Rectal pain, Vomiting. Past Medical History - Adult Stated Complaint SHORTNESS OF BREATH Allergies Coded Allergies: No Known Allergies (02/20/16) Review of Nursing Notes Rev avail, and agree Past Medical History: Reports: Asthma, Diabetes mellitus (pre-dm), Sei zure disorder. Alcohol Use Denies EtOH use Drug Use Denies recreational drugs Smoking status for patients 13 years old or olde r: Never Smoker Other Social History Local resident, Good social support Occupation student Ambulatory Status Independent Physical Exam Vital Signs Vital Signs Review of Vital Signs Reviewed Focused PE General/Const General/Const Awake, Alert Ears/Nose/Throat Ears/Nose/Throat Airway patent, Mucous membrane s moist, Pharynx NL MS Neck Neck Atraumatic, Supple, No meningismus, Full r helene of motion, No swelling, Non-tender, No masses Resp/Chest Respiratory/Chest Atraumatic, No rales, No rhon chi, No stridor, No chest tenderness, No chest wall deformity, No crepitus Resp Distress/Stridor Resp distress moderate, Speaks phrases. Negativ e: Speaks words only, Agonal respiration, Intubated. Wheezing/Retractions Wheeze insp/exp diffuse, Wheezing expiratory, W heezing inspiratory, Wheezing moderate, Retractions mild. Negative: Nasal flar ing. Cardiovascular Cardiovascular Heart rate NL, Regular rhythm, H eart sounds NL, Peripheral circulation NL Abdomen/GI Abdomen/GI Soft, Non-tender, No guarding, No re bound MS Back Back Inspection NL, Non-tender, No CVA tenderne ss MS Lower Extrem Lower Ext/Pelvis/MS Inspection NL, No swelling, Non-tender, No erythema, No deformity, Neurologic intact, No edema Skin Skin Color NL, No rash, Warm, Dry, Turgor NL Neurologic Neurologic Oriented X3, Speech NL, No motor def icits, No sensory deficits Additional PE Psychiatric Psychiatric Affect NL, Mood NL, Not suicidal, N ot homicidal, No hallucinations Interpretation Diagnostics Lab Results Interpretation Results Laboratory Tests: 06/13 1822 Chemistry Beta HCG, Quant (0 - 4.9 IU/L) <5.0 Recent Impressions: RADIOLOGY - XR CHEST 1 V 06/13 1814 Report Impression - Status: SIGNED Entered: 06/13/2018 183 Impression: 1. No radiographic evidence of acute cardiopulmo nary disease. Impression By: Daljit Meredith MD Imaging Statement Radiographic studies reviewed and considered in the medical decision-making. Point of Care Testing Pulse Oximetry Pulse Ox % 97 On: Room air Interpretation Pulse oximetry normal Time 1807 Re-Evaluation MDM Free Text MDM Notes Free Text MDM Notes Patient has improved and is back to base line, pt reports that she feels better after her duoneb x3 treatmen ts and solumedrol 125mg IVP. Pt chest xray clear, pt has proair inhaler at home but needs a refill. P t will be given rx for prednisone for 4 more days. Pt encouraged to rest, increase oral fluids and stay away from asthma triggers in cluding smoke. Pt feels good enough to go home, pcp handout given and f/u with 2 them in 2 days, als o gave pt pulmonary info )( Re-Evaluation/Progress #1 Time of Re-Eval 1906 )( Re-Eval Status Improved Re-Eval Resp/Chest Mild wheezing Treatment Summary Combined albut atrovent, Stero id therapy Plan Post Re-Eval Plan observe Re-Evaluation/Progress #2 Time of Eval 1929 Re-Eval Status Improved Re-Eval Resp/Chest Breath sounds normal, No whee zing Treatment Summary Combined albut atrovent (x3), Steroid therapy Pain Re-Evaluation Denies pain ED Course Medication(s) Ordered Medication(s) Ordered: Autonomic Drugs Sig/[place] Start time Last Medication Dose Route Stop Time Status Admin Albuterol/Ipratropium 3 ML Q15M 06/13 1814 DC 0 06/13 INH 06/13 184 1825 Hormones And Synthetic Substit Sig/[place] Start time Last Medication Dose Route Stop Time Status Admin Methylprednisolone 125 MG X1ED STA 06/13 1806 D C 06/13 Sodium Succinate IV 06/14 1807 181 Differential Diagnosis Differential Diagnosis Airway obstructio n, Allergic reaction, Anxiety, Asthma, Bronchitis, Foreign body airway, Pneumonia Patient Discharge Departure Vital Signs/Condition Vital Signs Condition Stable Clinical Impression Clinical Impression Primary Impression: Asthma exacerbation Disposition Decision Discharge )( Discharged to Home Yes )( Time 1929 )( Date 06/13/18 Discharge/Care Plan Counseled Regarding Diagnosi s, Imaging studies, Prescriptions, Need for follow- up, When to return to ED Prescriptions proair, prednisone Prescriptions Reviewed Risks, Benefits, Alternat [place] treatment Discharge Note I have spoken with the patie nt and/or caregivers. I have explained the patient's condition, diagnoses and eleanor atment plan based on the information available to me at this time. I have answered the patient's and/ or caregiver's questions and addressed any concerns. The patient and/or careg cheyanne have as good an understanding of the patient 's diagnosis, condition and treatment plan as can be expected at this point. The vital signs have bee n stable. The patient's condition is stable and appr opriate for discharge from the emergency department. The patient will pursue further outpatient evalu ation with the primary care physician or other designated or consulting phys ician as outlined in the discharge instructions. The patient and/or caregivers are agreeable to this plan of care and follow-up instructions have been exp lained in detail. The patient and/or caregivers have received these instructio ns in written format and have expressed an understanding of the discharge inst ructions. The patient and/or caregivers are aware that any significant change in condition or worsening of symptoms should prompt an immediate return to [facility] or the closest emergency department or a call to 911. Quality Measures BP F/U for HTN Referred for BP f/u < 4wk Smoking Cessation Screened, non user Tobacco Screening/Cessation 18 years or older, D enies tobacco use Carmina Cisneros 06/14/18 1024: Physical Exam Vital Signs Vital Signs First Documented: Result Date Time Pulse Ox 97 06/13 1806 B/P 125/79 06/13 180 B/P Mean 94.3 06/13 1806 Temp 97.5 06/13 180 Pulse 84 06/13 180 Resp 20 06/13 180 O2 Delivery Nasal cannula 06/13 182 O2 Flow Rate 2.005503 06/13 182 Last Documented: Result Date Time Pulse Ox 98 06/14 1927 B/P 154/65 06/14 1927 B/P Mean 94.7 06/14 1927 Temp 97.9 06/13 192 Pulse 94 06/13 192 Resp 18 06/13 192 O2 Delivery Nasal cannula 06/13 1825 O2 Flow Rate 4.757565 06/13 1825 Interpretation Diagnostics Lab Results Interpretation Results Re-Evaluation MDM ED Course Medication(s) Ordered Patient Discharge Departure Vital Signs/Condition Vital Signs First Documented: Result Date Time Pulse Ox 97 06/13 1806 B/P 125/79 06/13 180 B/P Mean 94.3 06/13 1806 Temp 97.5 06/13 180 Pulse 84 06/13 180 Resp 20 04/21 1807 O2 Delivery Nasal cannula 06/13 1822 O2 Flow Rate 2.208992 06/13 1822 Last Documented: Result Date Time Pulse Ox 98 06/14 1927 B/P 154/65 06/14 1927 B/P Mean 94.7 06/14 1927 Temp 97.9 06/14 1927 Pulse 94 06/14 1927 Resp 18 06/14 1927 O2 Delivery Nasal cannula 06/13 1824 O2 Flow Rate 4.515376 06/13 1824 All vital signs available at the time of this en try have been reviewed. Supervising Physician Note MidLv Saw Pt Alone I have reviewed the PA/SALES AND PRODUCTION MANAGER's note and plan of car e. I was available for consultation as needed at al l times during the patient's visit in the emergency department. I agree with the clinical impression , plan and disposition. Roland Catalan 06/15/18 0041: HPI-Dyspnea/Wheezing General Initial Greet Date/Time 06/13/181806 Physical Exam Vital Signs Vital Signs Interpretation Diagnostics Lab Results Interpretation Results Patient Discharge Departure Vital Signs/Condition Vital Signs Supervising Physician Note MidLv Saw Pt Alone I have reviewed the PA/SALES AND PRODUCTION MANAGER's note and plan of car e. I was available for consultation as needed at al l times during the patient's visit in the emergency department. I agree with the clinical impression , plan and disposition. Electronically Signed by Leti Cisneros MD on at 1024 at 1610 Electronically Signed by Roland Catalan DO on at 0042 RPT #:[id number] END OF REPORT 2018-05-15 17:13:00-00:00 [facility] EMERGENCY PROVIDER REPORT REPORT#:[id number] REPORT STATUS: Signed DATE:05/15/18 TIME: 171 PATIENT: TANIKA MONTEMAYOR UNIT #: [id number] ROOM/BED: AGE: 17 SEX: F PCP PHYS: DOES_NOT KNOW SERVICE AUTHOR: Juan David Jalloh * ALL edits or amendments must be made on the el [employer]/computer document * HPI-Ankle Prob/Inj General Confirmed Patient Yes Patient Type New patient Initial Greet Date/Time 05/15/18 1620 Presentation Chief Complaint Injury R, Swelling R Hx Obtained From Patient Onset Occurred Today Symptom Duration Since onset Caused by Fall on ground Location Ankle R Quality Painful Free Text HPI Notes Free Text HPI Notes 17 Y/O F presents to ED c/o sharp pain in right ankle after injuring it from fall while running after boyfriend. Pt h as injured same ankle before. No other complaints elicited. Portions of this section were scribed by Alejandrina Jones on 05/15/18 at 1727 Review of Systems ROS Statements All systems rev neg except as marked. Focused Review of Systems Constitutional Denies: Chills, Fever. Musculoskeletal Reports: Extremity pain (r ankle), Extremity swe lling (r ankle). Skin Reports: Swelling (r ankle). Denies: Rash. Neurologic Denies: Dizziness, Headache. Additional Review of Systems Eyes Denies: Blurred bilat, Discharge bilat, Eye pain bilat. Ears/Nose/Throat Denies: Ear drainage bilat, Ear ringing bilat, H earing loss R. Respiratory Denies: Pleuritic pain, Shortness of breath. Cardiovascular Denies: Palpitations, Syncope. GI Denies: Diarrhea, Nausea, Vomiting. Female Denies: Flank pain, Pelvic pain. Portions of this section were scribed by Alejandrina Jones on 05/15/18 at 1727 Past Medical History - Adult Stated Complaint INJURY - ACCIDENT Allergies Coded Allergies: No Known Allergies (02/20/16) Review of Nursing Notes Rev avail, and agree Pt reports no significant: Past medical history, Past surgical history, Family history Alcohol Use Denies EtOH use Drug Use Denies recreational drugs Smoking status for patients 13 years old or olde r: Never Smoker Other Social History Local resident, Good social support Portions of this section were scribed by Alejandrina Jones on 05/15/18 at 1713 Physical Exam Vital Signs Vital Signs First Documented: Result Date Time Pulse Ox 98 05/15 1626 B/P 113/58 05/15 1626 B/P Mean 76 05/15 162 O2 Delivery Room air 05/15 162 Temp 36.9 05/15 162 Pulse 85 05/15 1626 Resp 18 05/15 162 Last Documented: Result Date Time Pulse Ox 98 05/15 1626 B/P 113/58 05/15 1625 B/P Mean 76 05/15 162 O2 Delivery Room air 05/15 1625 Temp 36.9 05/15 1625 Pulse 85 05/15 1625 Resp 18 05/15 1625 Review of Vital Signs Reviewed Focused PE General/Const General/Const Awake, Alert, Cooperative MS Ankle/Foot Right Ankle Swelling present (to ATFL), Tenderness present (to ATFL), Tender lat ligaments. Negative: Tender medial ligam ents, Tender lateral malleolus, Tender medial malleolus, Ecchymosis present, Er ythema present, ROM reduced (painful), Achilles deficit, Anterior drawer test pos, Defo rmity present, Neuro deficit present. Skin Skin Color NL, Warm, Dry Neurologic Neurologic Oriented X3, Speech NL, No motor def icits, No sensory deficits Additional PE MS Head Head Atraumatic, Normocephalic Eyes Eyes No periorbital redness, No periorb ital swelling, No photophobia, Eyelids NL Ears/Nose/Throat Ears/Nose/Throat Atraumatic, Airway pat ent, Mucous membranes moist, No facial swelling MS Neck Neck Atraumatic, Full range of motion, No swell ing Resp/Chest Respiratory/Chest Breath sounds NL, Breath soun ds = bilat, No respiratory distress, No rales, No rhonchi, No wheezing, No chest tenderness Cardiovascular Cardiovascular Heart rate NL, Regular rhythm, H eart sounds NL, No gallop, No murmurs, No rubs, Cap refill not delayed, Periph eral circulation NL MS Back Back Full range of motion, Painless range of mo tion MS Upper Extrem Upper Extremity/MS No swelling, No erythema, No deformity MS Lower Extrem Lower Ext/Pelvis/MS No swelling, No erythema, N o deformity Psychiatric Psychiatric Affect NL, Mood NL, Judgment/insigh t NL, Thought content NL Portions of this section were scribed by Alejandrina Jones on 05/15/18 at 1726 Interpretation Diagnostics Lab Results Interpretation Results Recent Impressions: RADIOLOGY - XR ANKLE 3 + V RT 05/15 1642 Report Impression - Status: SIGNED Entered: 05/15/2018 0227 IMPRESSION: 1. Soft tissue swelling, no acute fracture. 2. Benign-appearing distal tibial bone lesion. Impression By: Umair Holm MD Imaging Statement Radiographic studies reviewed and considered in the medical decision-making. Point of Care Testing Pulse Oximetry Pulse Ox % 98 On: Room air Interpretation Interpreted by me, Pulse oximetr y normal Time 1626 Portions of this section were scribed by Alejandrina Jones on 05/15/18 at 1717 Re-Evaluation MDM Free Text MDM Notes Free Text MDM Notes 1718 Pt states she had crutches and velcro splint at home and denies splint and crutches from ED. ED Course Medication(s) Ordered Medication(s) Ordered: Central Nervous System Agents Sig/[place] Start time Last Medication Dose Route Stop Time Status Admin Hydrocodone Bitart/ TAB X1ED STA 05/15 1627 D C 05/15 Acetaminophen PO 05/15 1628 1631 Portions of this section were scribed by Alejandrina Jones on 05/15/18 at 1717 Patient Discharge Departure Vital Signs/Condition Vital Signs First Documented: Result Date Time Pulse Ox 98 05/15 1626 B/P 113/58 05/15 1626 B/P Mean 76 05/15 1626 O2 Delivery Room air 05/15 1626 Temp 36.9 05/15 1626 Pulse 85 05/15 1626 Resp 18 05/15 1626 Last Documented: Result Date Time Pulse Ox 98 05/15 1626 B/P 113/58 05/15 1626 B/P Mean 76 05/15 1626 O2 Delivery Room air 05/15 1626 Temp 36.9 05/15 1626 Pulse 85 05/15 1626 Resp 18 05/15 1626 All vital signs available at the time of this en try have been reviewed. Condition Stable Clinical Impression Clinical Impression Primary Impression: Right ankle sprain Disposition Decision Discharge )( Discharged to Home Yes )( Time 1725 )( Date 05/15/18 Discharge/Care Plan Counseled Regarding Diagnosi s, Imaging studies, Prescriptions, Need for follow- up, When to return to ED Prescriptions motrin tramadol Prescriptions Reviewed Risks, Benefits, Alternat [place] treatment Discharge Note I have spoken with the patie nt and/or caregivers. I have explained the patient's condition, diagnoses and eleanor atment plan based on the information available to me at this time. I have answered the patient's and/ or caregiver's questions and addressed any concerns. The patient and/or careg cheyanne have as good an understanding of the patient 's diagnosis, condition and treatment plan as can be expected at this point. The vital signs have bee n stable. The patient's condition is stable and appr opriate for discharge from the emergency department. The patient will pursue further outpatient evalu ation with the primary care physician or other designated or consulting phys ician as outlined in the discharge instructions. The patient and/or caregivers are agreeable to this plan of care and follow-up instructions have been exp lained in detail. The patient and/or caregivers have received these instructio ns in written format and have expressed an understanding of the discharge inst ructions. The patient and/or caregivers are aware that any significant change in condition or worsening of symptoms should prompt an immediate return to [facility] or the closest emergency department or a call to 911. Supervising Physician Note Scribe Statement Violette Jones, 05/15/181712, scribing for and in the presence of Juan David Jalloh. Signed By: Violette Jones, 05/15/181712 Provider Scribed Statement I personally performed the s ervices described in this documentation and reviewed the documentation that was dictated to the scrib e(s) in my presence, and it accurately records my words and actions. Juan David Jalloh, 05/16/18 Portions of this section were scribed by Alejandrina Jones on 05/15/18 at 1717 Electronically Signed by Juan David Jalloh on at 1029 RPT #:[id number] END OF REPORT 2018-05-15 17:13:00-00:00 [facility] ([facility]) EMERGENCY PROVIDER REPORT REPORT#:[id number] REPORT STATUS: Signed DATE:05/15/18 TIME: 1712 PATIENT: TANIKA MONTEMAYOR UNIT #: [id number] ROOM/BED: AGE: 17 SEX: F PCP PHYS: DOES_NOT KNOW SERVICE AUTHOR: Juan David Jalloh * ALL edits or amendments must be made on the el [employer]/computer document * Juan David Jalloh 05/15/18 1713: HPI-Ankle Prob/Inj General Confirmed Patient Yes Patient Type New patient Presentation Chief Complaint Injury R, Swelling R Hx Obtained From Patient Onset Occurred Today Symptom Duration Since onset Caused by Fall on ground Location Ankle R Quality Painful Free Text HPI Notes Free Text HPI Notes 17 Y/O F presents to ED c/o sharp pain in right ankle after injuring it from fall while running after boyfriend. Pt h as injured same ankle before. No other complaints elicited. Portions of this section were scribed by Alejandrina Jones on 05/15/18 at 1727 Review of Systems ROS Statements All systems rev neg except as marked. Focused Review of Systems Constitutional Denies: Chills, Fever. Musculoskeletal Reports: Extremity pain (r ankle), Extremity swe lling (r ankle). Skin Reports: Swelling (r ankle). Denies: Rash. Neurologic Denies: Dizziness, Headache. Additional Review of Systems Eyes Denies: Blurred bilat, Discharge bilat, Eye pain bilat. Ears/Nose/Throat Denies: Ear drainage bilat, Ear ringing bilat, H earing loss R. Respiratory Denies: Pleuritic pain, Shortness of breath. Cardiovascular Denies: Palpitations, Syncope. GI Denies: Diarrhea, Nausea, Vomiting. Female Denies: Flank pain, Pelvic pain. Portions of this section were scribed by Alejandrina Jones on 05/15/18 at 1727 Past Medical History - Adult Stated Complaint INJURY - ACCIDENT Allergies Coded Allergies: No Known Allergies (02/20/16) Review of Nursing Notes Rev avail, and agree Pt reports no significant: Past medical history, Past surgical history, Family history Alcohol Use Denies EtOH use Drug Use Denies recreational drugs Smoking status for patients 13 years old or olde r: Never Smoker Other Social History Local resident, Good social support Portions of this section were scribed by Alejandrina Jones on 05/15/18 at 1713 Physical Exam Vital Signs Vital Signs First Documented: Result Date Time Pulse Ox 98 05/15 1626 B/P 113/58 05/15 1626 B/P Mean 76 05/15 1626 O2 Delivery Room air 05/15 1626 Temp 36.9 05/15 162 Pulse 85 05/15 1626 Resp 18 05/15 1626 Last Documented: Result Date Time Pulse Ox 98 05/15 1626 B/P 113/58 05/15 1626 B/P Mean 76 05/15 1626 O2 Delivery Room air 05/15 1626 Temp 36.9 05/15 1626 Pulse 85 05/15 162 Resp 18 05/15 1626 Review of Vital Signs Reviewed Focused PE General/Const General/Const Awake, Alert, Cooperative MS Ankle/Foot Right Ankle Swelling present (to ATFL), Tenderness present (to ATFL), Tender lat ligaments. Negative: Tender medial ligam ents, Tender lateral malleolus, Tender medial malleolus, Ecchymosis present, Er ythema present, ROM reduced (painful), Achilles deficit, Anterior drawer test pos, Defo rmity present, Neuro deficit present. Skin Skin Color NL, Warm, Dry Neurologic Neurologic Oriented X3, Speech NL, No motor def icits, No sensory deficits Additional PE MS Head Head Atraumatic, Normocephalic Eyes Eyes No periorbital redness, No periorb ital swelling, No photophobia, Eyelids NL Ears/Nose/Throat Ears/Nose/Throat Atraumatic, Airway pat ent, Mucous membranes moist, No facial swelling MS Neck Neck Atraumatic, Full range of motion, No swell ing Resp/Chest Respiratory/Chest Breath sounds NL, Breath soun ds = bilat, No respiratory distress, No rales, No rhonchi, No wheezing, No chest tenderness Cardiovascular Cardiovascular Heart rate NL, Regular rhythm, H eart sounds NL, No gallop, No murmurs, No rubs, Cap refill not delayed, Periph eral circulation NL MS Back Back Full range of motion, Painless range of mo tion MS Upper Extrem Upper Extremity/MS No swelling, No erythema, No deformity MS Lower Extrem Lower Ext/Pelvis/MS No swelling, No erythema, N o deformity Psychiatric Psychiatric Affect NL, Mood NL, Judgment/insigh t NL, Thought content NL Portions of this section were scribed by Alejandrina Jones on 05/15/18 at 1726 Interpretation Diagnostics Lab Results Interpretation Results Recent Impressions: RADIOLOGY - XR ANKLE 3 + V RT 05/15 1642 Report Impression - Status: SIGNED Entered: 05/15/2018 1717 IMPRESSION: 1. Soft tissue swelling, no acute fracture. 2. Benign-appearing distal tibial bone lesion. Impression By: Umair Holm MD Imaging Statement Radiographic studies reviewed and considered in the medical decision-making. Point of Care Testing Pulse Oximetry Pulse Ox % 98 On: Room air Interpretation Interpreted by me, Pulse oximetr y normal Time 1626 Portions of this section were scribed by Alejandrina Jones on 05/15/18 at 1717 Re-Evaluation MDM Free Text MDM Notes Free Text MDM Notes 1718 Pt states she had crutches and velcro splint at home and denies splint and crutches from ED. ED Course Medication(s) Ordered Medication(s) Ordered: Central Nervous System Agents Sig/[place] Start time Last Medication Dose Route Stop Time Status Admin Hydrocodone Bitart/ 1 TAB X1ED STA 05/15 1627 D C 05/15 Acetaminophen PO 05/15 1628 1631 Portions of this section were scribed by Alejandrina Jones on 05/15/18 at 1717 Patient Discharge Departure Vital Signs/Condition Vital Signs First Documented: Result Date Time Pulse Ox 98 05/15 1626 B/P 113/58 05/15 1626 B/P Mean 76 05/15 1626 O2 Delivery Room air 05/15 1626 Temp 36.9 05/15 1626 Pulse 85 05/15 1626 Resp 18 05/15 1626 Last Documented: Result Date Time Pulse Ox 98 05/15 1626 B/P 113/58 05/15 1626 B/P Mean 76 05/15 1626 O2 Delivery Room air 05/15 1626 Temp 36.9 05/15 1626 Pulse 85 05/15 1626 Resp 18 05/15 1626 All vital signs available at the time of this en try have been reviewed. Condition Stable Clinical Impression Clinical Impression Primary Impression: Right ankle sprain Disposition Decision Discharge )( Discharged to Home Yes )( Time 1725 )( Date 05/15/18 Discharge/Care Plan Counseled Regarding Diagnosi s, Imaging studies, Prescriptions, Need for follow- up, When to return to ED Prescriptions motrin tramadol Prescriptions Reviewed Risks, Benefits, Alternat [place] treatment Discharge Note I have spoken with the patie nt and/or caregivers. I have explained the patient's condition, diagnoses and eleanor atment plan based on the information available to me at this time. I have answered the patient's and/ or caregiver's questions and addressed any concerns. The patient and/or careg cheyanne have as good an understanding of the patient 's diagnosis, condition and treatment plan as can be expected at this point. The vital signs have bee n stable. The patient's condition is stable and appr opriate for discharge from the emergency department. The patient will pursue further outpatient evalu ation with the primary care physician or other designated or consulting phys ician as outlined in the discharge instructions. The patient and/or caregivers are agreeable to this plan of care and follow-up instructions have been exp lained in detail. The patient and/or caregivers have received these instructio ns in written format and have expressed an understanding of the discharge inst ructions. The patient and/or caregivers are aware that any significant change in condition or worsening of symptoms should prompt an immediate [facility] or the closest emergency department or a call to 911. Supervising Physician Note Scribe Statement Violette Jones, 05/15/18 1713, scribing for and in the presence of Juan David Jalloh. Signed By: Violette Jones, 05/15/18 1713 Provider Scribed Statement I personally performed the s ervices described in this documentation and reviewed the documentation that was dictated to the scrib e(s) in my presence, and it accurately records my words and actions. Juan David Jalloh, 05/16/18 Portions of this section were scribed by Alejandrina Jones on 05/15/18 at 1717 Red De La Garza 05/19/18 0303: HPI-Ankle Prob/Inj General Initial Greet Date/Time 05/15/18 1620 Physical Exam Vital Signs Vital Signs Interpretation Diagnostics Lab Results Interpretation Results Patient Discharge Departure Vital Signs/Condition Vital Signs Supervising Physician Note MidLv Saw Pt Alone I have reviewed the PA/SALES AND PRODUCTION MANAGER's note and plan of car e. I was available for consultation as needed at al l times during the patient's visit in the emergency department. Electronically Signed by Juan David Jalloh on at 1029 Electronically Signed by Red De La Garza MD on at 0304 RPT #:[id number] END OF REPORT
--- NOTE | 2022-07-11 22:18 | ER ---
Nurse's Notes [facility] Name: Tanika Lawrence Age: 21 yrs Sex: Female : 2000 Arrival Date: 07/11/2022 Time: 21:52 Bed 12 Private MD: Diagnosis: Dental caries, unspecified Presentation: 07/11 22:12 Chief complaint: Patient states: I broke my tooth 2 to 3 weeks ago and it hurts a lot. kd3 My blood pressure is also high. Ebola Screen: No symptoms or risks identified at this time. Initial Sepsis Screen: Does the patient meet any 2 criteria? No. Patient's initial sepsis screen is negative. Does the patient have a suspected source of infection? No. Patient's initial sepsis screen is negative. Risk Assessment: Do you want to hurt yourself or someone else? Patient reports no desire to harm self or others. Onset of symptoms was July 11, 2022. 22:12 Method Of Arrival: Ambulatory kd3 22:12 Acuity: SILVIA 4 kd3 22:30 Coronavirus screen: unknown. kd3 Triage Assessment: 22:14 General: Appears uncomfortable, Behavior is calm, cooperative. Pain: Complains of pain kd3 in right buccal mucosa. Neuro: Level of Consciousness is awake, alert, obeys commands, Oriented to person, place, time, situation. Cardiovascular: Patient's skin is warm and dry. Respiratory: Airway is patent Trachea midline Respiratory effort is even, unlabored, Respiratory pattern is regular, symmetrical. Historical: - Allergies: 22:14 No Known Allergies; kd3 - Home Meds: 22:13 Albuterol Inhl [Active]; kd3 - PMHx: 22:13 Asthma; autoimmune disease; HTN; pre eclampsia; kd3 - PSHx: 22:13 section; kd3 - Immunization history:: Adult Immunizations up to date. - Social history:: Smoking status: unknown. Screenin:29 [facility] ED Fall Risk Assessment (Adult) History of falling in the last 3 months, kd3 including since admission. [facility] ED Fall Risk Assessment (Adult) History of falling in the last 3 months, including since admission No falls in past 3 months (0 pts) Confusion or Disorientation No (0 pts) Intoxicated or Sedated No (0 pts) Impaired Gait No (0 pts) Mobility Assist Device Used No (0 pt) Altered Elimination No (0 pt) Score/Fall Risk Level 0 - 2 = Low Risk Maintained a safe environment. Abuse screen: Denies threats or abuse. Denies injuries from another. Nutritional screening: No deficits noted. Nutritional screening: No deficits noted. Tuberculosis screening: No symptoms or risk factors identified. Vital Signs: 22:12 BP 130 / 92; Pulse 104; Resp 16; Temp 98.4(O); Pulse Ox 97% on R/A; Weight 53.07 kg; kd3 Height 5 ft. 2 in. ; 22:12 Body Mass Index 21.40 (53.07 kg, 157.48 cm) kd3 ED Course: 21:54 Patient arrived in ED. ag3 21:54 Anika Hutchinson FNP-C [facility]. snw 21:54 Ajit Sarkar MD is Attending Physician. snw 22:13 Triage completed. kd3 22:14 Arm band placed on right wrist. kd3 22:22 Carissa Solorio RN is Primary Nurse. kd3 22:30 Patient has correct armband on for positive identification. kd3 22:30 No provider procedures requiring assistance completed. Patient did not have IV access kd3 during this emergency room visit. Administered Medications: 22:29 Drug: Amoxicillin-Clavulanate PO 875 mg Route: PO; kd3 22:30 Follow up: Response: No adverse reaction kd3 22:29 Drug: HYDROcodone-acetaminophen PO 5 mg-325 mg 1 tabs Route: PO; kd3 22:30 Follow up: Response: No adverse reaction kd3 Medication: 22:30 VIS not applicable for this client. kd3 Outcome: 22:17 Discharge ordered by . snw 22:30 Discharged to home ambulatory. kd3 22:30 Condition: stable 22:30 Condition: stable 22:30 Discharge instructions given to patient, family, Instructed on discharge instructions, follow up and referral plans. Demonstrated understanding of instructions, follow-up care, medications, Prescriptions given X 3. 22:31 Patient left the ED. kd3 Signatures: Anika Hutchinson FNP-C STRUCTURES ASSEMBLER-Csnw Joan Brandt ag3 Carissa Solorio RN RN kd3
--- NOTE | 2022-07-11 22:18 | EDPHYS ---
Physician Documentation [facility] Name: Tanika Lawrence Age: 21 yrs Sex: Female : 2000 Arrival Date: 07/11/2022 Time: 21:52 Bed 12 Private MD: ED Physician Ajit Sarkar HPI: 07/11 22:20 This 21 yrs old Female presents to ER via Ambulatory with complaints of High Blood snw Pressure. 22:20 The patient presents with broken tooth/teeth. The problem is located in the upper right snw second molar, upper left second molar and lower right first molar. Onset: The symptoms/episode began/occurred acutely. Duration: The symptoms are continuous. Associated signs and symptoms: Pertinent positives: pt states pain was controllable and now it hurts more and has made her blood pressure go up. It is unknown whether or not the patient has recently seen a physician. pt states she had pre-eclampsia and her blood pressure has spiked every now and then since. Pt states she has a lot of fractured teeth second to hyperemesis. Historical: - Allergies: 22:14 No Known Allergies; kd3 - Home Meds: 22:13 Albuterol Inhl [Active]; kd3 - PMHx: 22:13 Asthma; autoimmune disease; HTN; pre eclampsia; kd3 - PSHx: 22:13 section; kd3 - Immunization history:: Adult Immunizations up to date. - Social history:: Smoking status: unknown. ROS: 22:22 Constitutional: Negative for fever, chills, and weight loss, Eyes: Negative for injury, snw pain, redness, and discharge, Neck: Negative for injury, pain, and swelling, Cardiovascular: Negative for chest pain, palpitations, and edema, Respiratory: Negative for shortness of breath, cough, wheezing, and pleuritic chest pain, Abdomen/GI: Negative for abdominal pain, nausea, vomiting, diarrhea, and constipation, Back: Negative for injury and pain, : Negative for injury, bleeding, discharge, and swelling, MS/Extremity: Negative for injury and deformity, Skin: Negative for injury, rash, and discoloration, Neuro: Negative for headache, weakness, numbness, tingling, and seizure, Psych: Negative for depression, anxiety, suicide ideation, homicidal ideation, and hallucinations. 22:22 ENT: Positive for Teeth pain Exam: 22:22 Constitutional: This is a well developed, well nourished patient who is awake, alert, snw and in no acute distress. Head/Face: Normocephalic, atraumatic. Eyes: Pupils equal round and reactive to light, extra-ocular motions intact. Lids and lashes normal. Conjunctiva and sclera are non-icteric and not injected. Cornea within normal limits. Periorbital areas with no swelling, redness, or edema. Neck: Trachea midline, no thyromegaly or masses palpated, and no cervical lymphadenopathy. Supple, full range of motion without nuchal rigidity, or vertebral point tenderness. No Meningismus. Chest/axilla: Normal chest wall appearance and motion. Nontender with no deformity. No lesions are appreciated. Cardiovascular: Tachycardic rate and rhythm with a normal S1 and S2. No gallops, murmurs, or rubs. Normal PMI, no JVD. No pulse deficits. Respiratory: Lungs have equal breath sounds bilaterally, clear to auscultation and percussion. No rales, rhonchi or wheezes noted. No increased work of breathing, no retractions or nasal flaring. Abdomen/GI: Soft, non-tender, with normal bowel sounds. No distension or tympany. No guarding or rebound. No evidence of tenderness throughout. Back: No spinal tenderness. No costovertebral tenderness. Full range of motion. Skin: Warm, dry with normal turgor. Normal color with no rashes, no lesions, and no evidence of cellulitis. MS/ Extremity: Pulses equal, no cyanosis. Neurovascular intact. Full, normal range of motion. Neuro: Awake and alert, GCS 15, oriented to person, place, time, and situation. Cranial nerves II-XII grossly intact. Motor strength 5/5 in all extremities. Sensory grossly intact. Cerebellar exam normal. Normal gait. Psych: Awake, alert, with orientation to person, place and time. Behavior, mood, and affect are within normal limits. 22:22 ENT: Dental exam: fractured teeth are noted, specifically the lower right first molar snw (#30), pain, that is moderate, that is severe, specifically in the lower right first molar (#30). Vital Signs: 22:12 BP 130 / 92; Pulse 104; Resp 16; Temp 98.4(O); Pulse Ox 97% on R/A; Weight 53.07 kg; kd3 Height 5 ft. 2 in. ; 22:12 Body Mass Index 21.40 (53.07 kg, 157.48 cm) kd3 MDM: 22:02 Patient medically screened. snw 22:23 Differential diagnosis: dental caries, gingivitis, dental abscess, gingivostomatitis. snw Data reviewed: vital signs, nurses notes. Counseling: I had a detailed discussion with the patient and/or guardian regarding: the historical points, exam findings, and any diagnostic results supporting the discharge/admit diagnosis, the presence of at least one elevated blood pressure reading (>120/80) during this emergency department visit, the need for outpatient follow up, for definitive care, to return to the emergency department if symptoms worsen or persist or if there are any questions or concerns that arise at home. Special discussion: I have referred the patient to see his PCP for further evaluation of high blood pressure. Based on the history and exam findings, there is no indication for further emergent testing or inpatient evaluation. I discussed with the patient/guardian the need to see a dentist for further evaluation of the symptoms. Administered Medications: 22:29 Drug: Amoxicillin-Clavulanate PO 875 mg Route: PO; kd3 22:30 Follow up: Response: No adverse reaction kd3 22:29 Drug: HYDROcodone-acetaminophen PO 5 mg-325 mg 1 tabs Route: PO; kd3 22:30 Follow up: Response: No adverse reaction kd3 Disposition Summary: 07/11/22 22:17 Discharge Ordered Location: Home snw Condition: Stable snw Diagnosis - Dental caries, unspecified snw Followup: snw - With: Emergency Department - When: As needed - Reason: Worsening of condition Followup: snw - With: Private Physician - When: 2 - 3 days - Reason: Recheck today's complaints, Continuance of care, Re-evaluation by your physician Discharge Instructions: - Discharge Summary Sheet snw - Dental Caries, Adult snw - Dental Pain snw - Root Canal snw - Diet and Dental Disease snw Forms: - Medication Reconciliation Form snw - Thank You Letter snw - Antibiotic Education snw - Prescription Opioid Use snw Prescriptions: - chlorhexidine gluconate 0.12 % Mucous Membrane Mouthwash - swish 15 milliliter by BUCCAL route 2 times per day; 480 milliliter; Refills: snw 0, Product Selection Permitted - Augmentin 500-125 mg Oral Tablet - take 1 tablet by ORAL route every 8 hours for 10 days; 30 tablet; Refills: 0, snw Product Selection Permitted - Tramadol 50 mg Oral Tablet - take 1 tablet by ORAL route every 8 hours as needed; 12 tablet; Refills: 0, snw Product Selection Permitted Signatures: Anika Hutchinson, SEWING MACHINE REPAIRER HELPER-C SEWING MACHINE REPAIRER HELPER-Csnw Carissa Solorio RN RN kd3 Corrections: (The following items were deleted from the chart) 22:23 22:22 Constitutional: This is a well developed, well nourished patient who is awake, snw alert, and in no acute distress. Head/Face: Normocephalic, atraumatic. Eyes: Pupils equal round and reactive to light, extra-ocular motions intact. Lids and lashes normal. Conjunctiva and sclera are non-icteric and not injected. Cornea within normal limits. Periorbital areas with no swelling, redness, or edema. Neck: Trachea midline, no thyromegaly or masses palpated, and no cervical lymphadenopathy. Supple, full range of motion without nuchal rigidity, or vertebral point tenderness. No Meningismus. Chest/axilla: Normal chest wall appearance and motion. Nontender with no deformity. No lesions are appreciated. Cardiovascular: Tachycardic rate and rhythm with a normal S1 and S2. No gallops, murmurs, or rubs. Normal PMI, no JVD. No pulse deficits. Respiratory: Lungs have equal breath sounds bilaterally, clear to auscultation and percussion. No rales, rhonchi or wheezes noted. No increased work of breathing, no retractions or nasal flaring. Abdomen/GI: Soft, non-tender, with normal bowel sounds. No distension or tympany. No guarding or rebound. No evidence of tenderness throughout. Back: No spinal tenderness. No costovertebral tenderness. Full range of motion. Skin: Warm, dry with normal turgor. Normal color with no rashes, no lesions, and no evidence of cellulitis. MS/ Extremity: Pulses equal, no cyanosis. Neurovascular intact. Full, normal range of motion. Neuro: Awake and alert, GCS 15, oriented to person, place, time, and situation. Cranial nerves II-XII grossly intact. Motor strength 5/5 in all extremities. Sensory grossly intact. Cerebellar exam normal. Normal gait. Psych: Awake, alert, with orientation to person, place and time. Behavior, mood, and affect are within normal limits. snw
[2022-07-11] MEDS ORDERED: HYDROCODONE/APAP 5/325 MG TAB ONE (22:30)
[2022-07-11] MEDS ORDERED: AMOX/K CLAV 875 MG TAB ONE (22:32)
[2022-07-11 22:35] VITALS: BP 130/92; TEMP 98.4; O2SAT 97
== END 2022-07-11 22:31 | disposition home or self-care (01) ==
LOC: ER 21:52
DX: K02.9 Dental caries, unspecified (principal)

== ENCOUNTER 2022-07-12 01:03 | Emergency (ER) | payer OTHER ==
--- OUTSIDE RECORDS SUMMARY | 2022-07-12 01:15 | XMS REPORT | Continuity of Care Document ---
:2000 Author Organization [facility] t Address [address] [place] [address] Care Team Providers Name Role Phone SHEELA JALLOH Primary Care Physician Unavailable SHEELA JALLOH Attending Clinician Unavailable JADE GALLOWAY Attending Clinician Unavailable Jade Galloway DO Attending Clinician Sheela White Attending Clinician LIAN SIMMS Attending Clinician Unavailable Lian Mooney Attending Clinician [phone] Doctor Unassigned, [place] Attending Clinician Unavailable Pcp-Lab Attending Clinician Unavailable Massimo AMBROSE, Analia Harry Attending Clinician ANALIA WILLS Attending Clinician Unavailable Carolina AMBROSE, Thomas Attending Clinician 2, Adc Lab Attending Clinician Unavailable Visit, [facility] Attending Clinician Unavailable Chip Archuleta DO Attending Clinician LEROY LORENZANA Attending Clinician Unavailable Emilee Villarreal MD Attending Clinician [phone] Daquan Bowman MD Attending Clinician Fernandez AMBROSE, Ronen White Attending Clinician Malcolm STALLWORTH, Jose Cruz Camacho Attending Clinician Unavailable Provider, Estradachvidya Temp Attending Clinician Unavailable MADHURI OROZCO Attending Clinician Unavailable Cristofer AMBROSE, Madhuri Rosenbaum Attending Clinician LIZETT WEI Attending Clinician Unavailable Lizett Wei MD Attending Clinician Astrid Barnett CNM Attending Clinician SATRID BARNETT Attending Clinician Unavailable Ultrasound, Ang-m Attending Clinician Unavailable Josesito Carrillo MD Attending Clinician JOSESITO CARRILLO Attending Clinician Unavailable JOSESITO CARRILLO Attending Clinician Unavailable Lab, [facility] Attending Clinician Unavailable Crispin Campbell Attending Clinician CRISPIN SON Attending Clinician Unavailable 1, Pas-m Us Room Attending Clinician Unavailable Ricardo AMBROSE, Joey Simmons Attending Clinician Rosalia Purdy APN Attending Clinician JOHNNY WARNER Attending Clinician Unavailable Risk, Jdf-Sadze-Hb/High Attending Clinician Unavailable Johnny Joshi Attending Clinician Faculty, Marcos Jeronimo [facility] Attending Clinician Unavailable Vicki Gardner RN Attending Clinician Unavailable Martha Frye RN Attending Clinician Unavailable LIZETT WEI Admitting Clinician Unavailable Chip Archuleta DO Admitting Clinician MADHURI OROZCO Admitting Clinician Unavailable Madhuri Orozco MD Admitting Clinician Lizett Wei MD Admitting Clinician Payers Payer Name Policy Type Policy Number Effective Date Expiration Date S chucho [facility] CHERIE [id number] 2021 00:00:00 MEDICAID PENDING PENDING 2021 00:00:00 Problems Condition Condition Condition Status Onset Resolution Last Treating Co mments Source Name Details Category Date Date Treatment Clinician Date Well woman Well woman Disease Active U nivers exam exam 4-14 ity of 00:00: [place] 00 [facility] Routine Routine Disease Active Univers 3-24 it y of [place] [facility] 38 weeks 38 weeks Disease Active Unive rs gestation gestation 3-01 ity of of of 00:00: [place] 00 [facility] Disease Active Univers growth growth 3-01 ity of restrictio restrictio [place] 00 Medical antepartum antepartum Br anch Elevated Elevated Disease Active Unive rs blood blood 3-01 ity of pressure pressure 00:00: [place] affecting affecting 00 [facility] Bran ch in third in third trimester, trimester, antepartum antepartum Positive Positive Disease Active Unive rs GBS test GBS test 2-17 ity of 00:00: [place] 00 [facility] Abnormal Abnormal Disease Active 2021-02 Unive rs maternal maternal 2-11 ity of glucose glucose 00:00: [place] tolerance, tolerance, 00 Me dical antepartum antepartum Br anch Anemia of Anemia of Disease Active 2021-02 Uni vers mother in mother in 2-11 ity of , , [place] antepartum antepartum 00 Me dical Branch Seizure Seizure Disease Active Univers disorder disorder 8-05 ity of during during 00:00: [place] 00 [facility] in second in second Bran ch trimester trimester GBS (group GBS (group Disease Active Overview : Univers B B 7-14 Formattin ity of streptococ streptococ 00:00: g of this [place] cus) UTI cus) UTI 00 note Medica l complicati complicati might be Branch ng ng different from the original. neg royal Supervisio Supervisio Disease Active U nivers n of n of 7-11 ity of high-risk high-risk 00:[place] [facility] History of History of Disease Active U nivers miscarriag miscarriag 7-11 it y of e e 00:00: [place] 00 [facility] Branch Autoimmune Autoimmune Disease Active Overview : [...] DA Active U 2015-02 [facility] All[facility]ie 04-22 [facility] 00:00: d 00 Medical [place] NO KNOWN Drug Active [facility] ALLERGIE Class ity of S [facility] [place] Social History Social Habit Start Date Stop Date Quantity Comments Source ASSERTION 2021-08-09 University 00:00:00 [facility] [place] History of Cigarette Smoker Universi ty of tobacco use [facility] [place] Exposure to 2022-07-01 2022-07-11 Not sure [facility] SARS-CoV-2 00:00:00 16:49:00 [facility] (event) Branch Alcohol intake 2022-07-11 2022-07-11 Lifetime University 00:00:00 00:00:00 non-drinker [facility] (finding) Branch Tobacco use and 2021-09-02 2021-09-02 Smokeless tobacco Un iversity of exposure 00:00:00 00:00:00 non-user [facility] [place] Sex Assigned At [birth year] Universit y of 00:00:00 00:00:00 [facility] [place] Smoking Status Start Date Stop Date Source Ex-smoker 2021-09-02 00:00:00 2021-09-02 00:00:00 Universi ty of [facility] [place] Medications Ordered Filled Start Stop Current Ordering [...] at 1700, LUCITA amoxicillin 2022-0 2022- Yes [id number] 875mg Take 1 Univers 875 mg 07-11 tablet by ity of tablet 00:00: 04:59 mouth in [place] 00 :00 the Medical morning Branch and 1 tablet in the evening. Do all this for 7 days. ergocalcife 2022-0 Yes [id number] Take 1 Univers rol, 4-20 capsule by ity of vitamin d2, 00:00: mouth [place] 1,250 mcg 00 weekly. Medical (50,000 Branch unit) capsule ergocalcife 2022-0 Yes [id number] Take 1 Univers rol, 4-20 capsule by ity of vitamin d2, 00:00: mouth [place] 1,250 mcg 00 weekly. Medical (50,000 Branch unit) capsule ergocalcife 2022-0 Yes [id number] Take 1 Univers rol, 4-20 capsule by ity of vitamin d2, 00:00: mouth [place] 1,250 mcg 00 weekly. Medical (50,000 Branch unit) capsule NIFEdipine 0 Yes [id number] 60mg Take 1 U nivers XL 60 mg 24 3-20 tablet by ity of hr tablet 00:00: mouth [place] 00 every Medical morning. Branch NIFEdipine 0 Yes [id number] 60mg Take 1 U nivers XL 60 mg 24 3-20 tablet by ity of hr tablet 00:00: mouth [place] 00 every Medical morning. Branch NIFEdipine 0 Yes [id number] 60mg Take 1 U nivers XL 60 mg 24 3-20 tablet by ity of hr tablet 00:00: mouth [place] 00 every Medical morning. Branch NIFEdipine 0 Yes [id number] 60mg Take 1 U nivers XL 60 mg 24 3-20 tablet by ity of hr tablet 00:00: mouth [place] 00 every Medical morning. Branch NIFEdipine 2022-0 Yes [id number] 60mg Take 1 U nivers XL 60 mg 24 3-20 tablet by ity of hr tablet 00:00: mouth [place] 00 every Medical morning. Branch NIFEdipine 2023-0 Yes [id number] 60mg Take 1 U nivers XL 60 mg 24 3-20 tablet by ity of hr tablet 00:00: mouth [place] 00 every Medical morning. Branch NIFEdipine 3-0 Yes [id number] 60mg Take 1 U nivers XL 60 mg 24 3-20 tablet by ity of hr tablet 00:00: mouth [place] 00 every Medical morning. Branch NIFEdipine 3-0 Yes [id number] 60mg Take 1 U nivers XL 60 mg 24 3-20 tablet by ity of hr tablet 00:00: mouth [place] 00 every Medical morning. Branch NIFEdipine 3-0 Yes [id number] 60mg Take 1 U nivers XL 60 mg 24 3-20 tablet by ity of hr tablet 00:00: mouth [place] 00 every Medical morning. Branch NIFEdipine 3-0 Yes [id number] 60mg Take 1 U nivers XL 60 mg 24 3-20 tablet by ity of hr tablet 00:00: mouth [place] 00 every Medical morning. Branch NIFEdipine 3-0 Yes [id number] 60mg Take 1 U nivers XL 60 mg 24 3-20 tablet by ity of hr tablet 00:00: mouth [place] 00 every Medical morning. Branch NIFEdipine 2022-0 Yes [id number] 60mg Take 1 U nivers XL 60 mg 24 3-20 tablet by ity of hr tablet 00:00: mouth [place] 00 every Medical morning. Branch NIFEdipine 3-0 3- No [id number] 60mg Take 1 Univers XL 60 mg 24 3-20 04-20 tablet by it y of hr tablet 00:00: 00:00 mouth [place] 00 :00 every Medical morning. Branch NIFEdipine 3-0 3- No [id number] 60mg Take 1 Univers XL 60 mg 24 3-20 04-20 tablet by it y of hr tablet 00:00: 00:00 mouth [place] 00 :00 every Medical morning. Branch NIFEdipine 3-0 3- No [id number] 60mg Take 1 Univers XL 60 mg [...] at 0900, Until Discontinu ed, Routine Yes [id number] 1{tbl} Take 1 Univers vitamin 3-04 tablet by ity of w/FA tablet 00:00: mouth [place] 00 the Medical morning. Branch docusate Yes [id number] 200mg Take 2 U nivers 100 mg 3-04 capsules ity of capsule 00:00: by mouth [place] 00 once daily Medical as needed Branch for Constipati on. ferrous Yes [id number] 325mg Take 1 Un cheyanne sulfate 325 3-04 tablet by ity of mg (65 mg 00:00: [place] iron[place] 00 the Medical tablet morning Branch and 1 tablet in the evening. ibuprofen 2022-0 Yes [id number] 600mg Take 1 Univers 600 mg 3-04 tablet by ity of tablet 00:00: mouth [place] 00 every 6 Medical (six) Branch hours as needed (Pain). Take with food or milk. 2022-0 Yes [id number] 1{tbl} Take 1 Univers vitamin 3-04 tablet by ity of w/FA tablet 00:00: mouth in [place] 00 the Medical morning. Branch docusate 2022-0 Yes [id number] 200mg Take 2 U nivers 100 mg 3-04 capsules ity of capsule 00:00: by mouth [place] 00 once daily Medical as needed Branch for Constipati on. ferrous 2022-0 Yes [id number] 325mg Take 1 Un cheyan[place] sulfate 325 3-04 tablet by ity of mg (65 mg 00:00: [place] iron[place] 00 the Medical tablet morning Branch and 1 tablet in the evening. ibuprofen 2022-0 Yes [id number] 600mg Take 1 Univers 600 mg 3-04 tablet by ity of tablet 00:00: mouth [place] 00 every 6 Medical (six) Branch hours as needed (Pain). Take with food or milk. 2022-0 Yes [id number] 1{tbl} Take 1 Univers vitamin 3-04 tablet by ity of w/FA tablet 00:00: mouth in [place] 00 the Medical morning. Branch docusate 2022-0 Yes [id number] 200mg Take 2 U nivers 100 mg 3-04 capsules ity of capsule 00:00: by mouth [place] 00 once daily Medical as needed Branch for Constipati on. ferrous 2022-0 Yes [id number] 325mg Take 1 Un cheyan[place] sulfate 325 3-04 tablet by ity of mg (65 mg 00:00: [place] iron[place] 00 the Medical tablet morning Branch and 1 tablet in the evening. ibuprofen 2022-0 Yes [id number] 600mg Take 1 Univers 600 mg 3-04 tablet by ity of tablet 00:00: mouth [place] 00 every 6 Medical (six) Branch hours as needed (Pain). Take with food or milk. 2022-0 Yes [id number] 1{tbl} Take 1 Univers vitamin 3-04 tablet by ity of w/FA tablet 00:00: mouth in [place] 00 the Medical morning. Branch docusate 2022-0 Yes [id number] 200mg Take 2 U nivers 100 mg 3-04 capsules ity of capsule 00:00: by mouth [place] 00 once daily Medical as needed Branch for Constipati on. ferrous 2022-0 Yes [id number] 325mg Take 1 Un cheyan[place] sulfate 325 3-04 tablet by ity of mg (65 mg 00:00: [place] iron[place] 00 the Medical tablet morning Branch and 1 tablet in the evening. ibuprofen 2022-0 Yes [id number] 600mg Take 1 Univers 600 mg 3-04 tablet by ity of tablet 00:00: mouth [place] 00 every 6 Medical (six) Branch hours as needed (Pain). Take with food or milk. 0 Yes [id number] 1{tbl} Take 1 Univers vitamin 3-04 tablet by ity of w/FA tablet 00:00: mouth in [place] 00 the Medical morning. Branch docusate 0 Yes [id number] 200mg Take 2 U nivers 100 mg 3-04 capsules ity of capsule 00:00: by mouth [place] 00 once daily Medical as needed Branch for Constipati on. ferrous 2022-0 Yes [id number] 325mg Take 1 Un cheyan[place] sulfate 325 3-04 tablet by ity of mg (65 mg 00:00: [place] iron[place] 00 the Medical tablet morning Branch and 1 tablet in the evening. ibuprofen 2022-0 Yes [id number] 600mg Take 1 Univers 600 mg 3-04 tablet by ity of tablet 00:00: mouth [place] 00 every 6 Medical (six) Branch hours as needed (Pain). Take with food or milk. 2022-0 Yes [id number] 1{tbl} Take 1 Univers vitamin 3-04 tablet by ity of w/FA tablet 00:00: mouth in [place] 00 the Medical morning. Branch docusate 0 Yes [id number] 200mg Take 2 U nivers 100 mg 3-04 capsules ity of capsule 00:00: by mouth [place] 00 once daily Medical as needed Branch for Constipati on. ferrous 2022-0 Yes [id number] 325mg Take 1 Un cheyan[place] sulfate 325 3-04 tablet by ity of mg (65 mg 00:00: [place] iron[place] 00 the Medical tablet morning Branch and 1 tablet in the evening. ibuprofen 2022-0 Yes [id number] 600mg Take 1 Univers 600 mg 3-04 tablet by ity of tablet 00:00: mouth [place] 00 every 6 Medical (six) Branch hours as needed (Pain). Take with food or milk. 2022-0 Yes [id number] 1{tbl} Take 1 Univers vitamin 3-04 tablet by ity of w/FA tablet 00:00: mouth in [place] 00 the Medical morning. Branch docusate 2022-0 Yes [id number] 200mg Take 2 U nivers 100 mg 3-04 capsules ity of capsule 00:00: by mouth [place] 00 once daily Medical as needed Branch for Constipati on. ferrous 2022-0 Yes [id number] 325mg Take 1 Un cheyanne sulfate 325 3-04 tablet by ity of mg (65 mg 00:00: [place] iron[place] 00 the Medical tablet morning Branch and 1 tablet in the evening. ibuprofen 2022-0 Yes [id number] 600mg Take 1 Univers 600 mg 3-04 tablet by ity of tablet 00:00: mouth [place] 00 every 6 Medical (six) Branch hours as needed (Pain). Take with food or milk. 2022-0 Yes [id number] 1{tbl} Take 1 Univers vitamin 3-04 tablet by ity of w/FA tablet 00:00: mouth in [place] 00 the Medical morning. Branch docusate 2022-0 Yes [id number] 200mg Take 2 U nivers 100 mg 3-04 capsules ity of capsule 00:00: by mouth [place] 00 once daily Medical as needed Branch for Constipati on. ferrous 2022-0 Yes [id number] 325mg Take 1 Un cheyan[place] sulfate 325 3-04 tablet by ity of mg (65 mg 00:00: mouth [place] iron[place] 00 the Medical tablet morning Branch and 1 tablet in the evening. ibuprofen 2022-0 Yes [id number] 600mg Take 1 Univers 600 mg 3-04 tablet by ity of tablet 00:00: mouth [place] 00 every 6 Medical (six) Branch hours as needed (Pain). Take with food or milk. docusate 2022-0 Yes [id number] 200mg Take 2 U nivers 100 mg 3-04 capsules ity of capsule 00:00: by mouth [place] 00 once daily Medical as needed Branch for Constipati on. ferrous 2022-0 Yes [id number] 325mg Take 1 Un cheyanne sulfate 325 3-04 tablet by ity of mg (65 mg 00:00: mouth [place] iron[place] 00 the Medical tablet morning Branch and 1 tablet in the evening. ibuprofen 2022-0 Yes [id number] 600mg Take 1 Univers 600 mg 3-04 tablet by ity of tablet 00:00: mouth [place] 00 every 6 Medical (six) Branch hours as needed (Pain). Take with food or milk. docusate 2022-0 Yes [id number] 200mg Take 2 U nivers 100 mg 3-04 capsules ity of capsule 00:00: by mouth [place] 00 once daily Medical as needed Branch for Constipati on. ferrous 2022-0 Yes [id number] 325mg Take 1 Un cheyanne sulfate 325 3-04 tablet by ity of mg (65 mg 00:00: [place] iron[place] 00 the Medical tablet morning Branch and 1 tablet in the evening. ibuprofen 2022-0 Yes [id number] 600mg Take 1 Univers 600 mg 3-04 tablet by ity of tablet 00:00: mouth [place] 00 every 6 Medical (six) Branch hours as needed (Pain). Take with food or milk. docusate 2022-0 Yes [id number] 200mg Take 2 U nivers 100 mg 3-04 capsules ity of capsule 00:00: by mouth [place] 00 once daily Medical as needed Branch for Constipati on. ferrous 2022-0 Yes [id number] 325mg Take 1 Un cheyanne sulfate 325 3-04 tablet by ity of mg (65 mg 00:00: mouth [place] iron[place] 00 the Medical tablet morning Branch and 1 tablet in the evening. ibuprofen 2022-0 Yes [id number] 600mg Take 1 Univers 600 mg 3-04 tablet by ity of tablet 00:00: mouth [place] 00 every 6 Medical (six) Branch hours as needed (Pain). Take with food or milk. docusate 2022-0 Yes [id number] 200mg Take 2 U nivers 100 mg 3-04 capsules ity of capsule 00:00: by mouth [place] 00 once daily Medical as needed Branch for Constipati on. ferrous 2022-0 Yes [id number] 325mg Take 1 Un cheyanne sulfate 325 3-04 tablet by ity of mg (65 mg 00:00: mouth [place] iron[place] 00 the Medical tablet morning Branch and 1 tablet in the evening. ibuprofen 2022-0 Yes [id number] 600mg Take 1 Univers 600 mg 3-04 tablet by ity of tablet 00:00: mouth [place] 00 every 6 Medical (six) Branch hours as needed (Pain). Take with food or milk. docusate 0 Yes [id number] 200mg Take 2 U nivers 100 mg 3-04 capsules ity of capsule 00:00: by mouth [place] 00 once daily Medical as needed Branch for Constipati on. ferrous 0 Yes [id number] 325mg Take 1 Un cheyanne sulfate 325 3-04 tablet by ity of mg (65 mg 00:00: mouth [place] iron[place] 00 the Medical tablet morning Branch and 1 tablet in the evening. ibuprofen 0 Yes [id number] 600mg Take 1 Univers 600 mg 3-04 tablet by ity of tablet 00:00: mouth [place] 00 every 6 Medical (six) Branch hours as needed (Pain). Take with food or milk. docusate 0 Yes [id number] 200mg Take 2 U nivers 100 mg 3-04 capsules ity of capsule 00:00: by mouth [place] 00 once daily Medical as needed Branch for Constipati on. ferrous 2022-0 Yes [id number] 325mg Take 1 Un cheyanne sulfate 325 3-04 tablet by ity of mg (65 mg 00:00: mouth [place] iron[place] 00 the Medical tablet morning Branch and 1 tablet in the evening. ibuprofen 0 Yes [id number] 600mg Take 1 Univers 600 mg 3-04 tablet by ity of tablet 00:00: mouth [place] 00 every 6 Medical (six) Branch hours as needed (Pain). Take with food or milk. docusate 2022-0 Yes [id number] 200mg Take 2 U nivers 100 mg 3-04 capsules ity of capsule 00:00: by mouth [place] 00 once daily Medical as needed Branch for Constipati on. ferrous 2022-0 Yes [id number] 325mg Take 1 Un cheyanne sulfate 325 3-04 tablet by ity of mg (65 mg 00:00: mouth [place] iron[place] 00 the Medical tablet morning Branch and 1 tablet in the evening. ibuprofen 0 Yes [id number] 600mg Take 1 Univers 600 mg 3-04 tablet by ity of tablet 00:00: mouth [place] 00 every 6 Medical (six) Branch hours as needed (Pain). Take with food or milk. docusate Yes [id number] 200mg Take 2 U nivers 100 mg 3-04 capsules ity of capsule 00:00: by mouth [place] 00 once daily Medical as needed Branch for Constipati on. ferrous 0 Yes [id number] 325mg Take 1 Un cheyanne sulfate 325 3-04 tablet by ity of mg (65 mg 00:00: mouth [place] iron[place] 00 the Medical tablet morning Branch and 1 tablet in the evening. ibuprofen 0 Yes [id number] 600mg Take 1 Univers 600 mg 3-04 tablet by ity of tablet 00:00: mouth [place] 00 every 6 Medical (six) Branch hours as needed (Pain). Take with food or milk. ferrous Yes [id number] 325mg Take 1 Un cheyanne sulfate 325 3-04 tablet by ity of mg (65 mg 00:00: mouth [place] iron[place] 00 the Medical tablet morning Branch and 1 tablet in the evening. ferrous 2022-0 Yes [id number] 325mg Take 1 Un cheyan[place] sulfate 325 3-04 tablet by ity of mg (65 mg 00:00: mouth [place] iron[place] 00 the Medical tablet morning Branch and 1 tablet in the evening. ferrous 2022-0 Yes [id number] 325mg Take 1 Un cheyan[place] sulfate 325 3-04 tablet by ity of mg (65 mg 00:00: mouth [place] iron[place] 00 the Medical tablet morning Branch and 1 tablet in the evening. ferrous 2022-0 Yes [id number] 325mg Take 1 Un cheyanne sulfate 325 3-04 tablet by ity of mg (65 mg 00:00: [place] iron[place] 00 the Medical tablet morning Branch and 1 tablet in the evening. 2022-0 Yes [id number] 1{tbl} Take 1 Univers vitamin 3-04 tablet by ity of w/FA tablet 00:00: mouth in [place] 00 the Medical morning. Branch docusate 2023-0 Yes [id number] 200mg Take 2 U nivers 100 mg 3-04 capsules ity of capsule 00:00: by mouth [place] 00 once daily Medical as needed Branch for Constipati on. ferrous 2022-0 Yes [id number] 325mg Take 1 Un cheyanne sulfate 325 3-04 tablet by ity of mg (65 mg 00:00: mouth [place] iron[place] 00 the Medical tablet morning Branch and 1 tablet in the evening. ibuprofen Yes [id number] 600mg Take 1 Univers 600 mg 3-04 tablet by ity of tablet 00:00: mouth [place] 00 every 6 Medical (six) Branch hours as needed (Pain). Take with food or milk. docusate 2022- No [id number] 200mg Take 2 Univers 100 mg 3-04 04-20 capsules ity of capsule 00:00: 00:00 by mouth [place] 00 :00 once daily Medical as needed Branch for Constipati on. ibuprofen 2022- No [id number] 600mg Take 1 Univers 600 mg 3-04 04-20 tablet by ity of tablet 00:00: 00:00 mouth [place] 00 :00 every 6 Medical (six) Branch hours as needed (Pain). Take with food or milk. docusate 2022- No [id number] 200mg Take 2 Univers 100 mg 3-04 04-20 capsules ity of capsule 00:00: 00:00 by mouth [place] 00 :00 once daily Medical as needed Branch for Constipati on. ibuprofen 2022- No [id number] 600mg Take 1 Univers 600 mg 3-04 04-20 tablet by ity of tablet 00:00: 00:00 mouth [place] 00 :00 every 6 Medical (six) Branch hours as needed (Pain). Take with food or milk. docusate 2022- No [id number] 200mg Take 2 Univers 100 mg 3-04 04-20 capsules ity of capsule 00:00: 00:00 by mouth [place] 00 :00 once daily Medical as needed Branch for Constipati on. ibuprofen 2022- No [id number] 600mg Take 1 Univers 600 mg 3-04 04-20 tablet by ity of tablet 00:00: 00:00 mouth [place] 00 :00 every 6 Medical (six) Branch hours as needed (Pain). Take with food or milk. 2022- No [id number] 1{tbl} Take 1 Univers vitamin 3-04 03-31 tablet by ity of w/FA tablet 00:00: 00:00 mouth in [place] 00 :00 the Medical morning. Branch 2022- No [id number] 1{tbl} Take 1 Univers vitamin 3-04 03-31 tablet by ity of w/FA tablet 00:00: 00:00 mouth [place] 00 :00 the Medical morning. Branch 2022- No [id number] 1{tbl} Take 1 Univers vitamin 3-04 03-31 [...] of (fixed 10:45: Dose: 1 [place] dose) JEWEL [employer] FACER 00 mg
Lock Medi vipin injection out Branch Interval: 10 Minutes
Basal Rate: 0 mg/hr
F our Hour Dose Limit: 20 mg
Intr avenous, 30 mL, CONTINUOUS , Starting on Thu04/25/22 at 0445, Until Discontinu ed morpHINE 30 No Patient Un cheyanne mg/30 mL 04-25 [place] ity of (fixed 10:45: 07:02 Dose: 1 [place] dose) J[employer]ACER 00 :59 mg
Lock Medi vipin injection [...] ity of 30 units in 08:42: Infusion, [facility] NS 500 mL 46 SEE-INSTRU Medi vipin IV infusion CTIONS, Branc h Starting on Thu04/25/[address] art at 300 mL/hr for 1 hr then 150 mL/hr for 1 hr. & nbsp; For post delivery uterotonic
oxytocin 2022-0 2022- No 600mL/h 600 mL/hr, Univers (PITOCIN) 04-25 IV ity of 30 units in 08:42: 07:02 Infusion, [place] NS 500 mL 46 :59 PRN, For Medica l IV infusion post Branch delivery uterine atony., Starting on Thu04/25/22 at 0242<br&gt ;Start at 600 mL/hr for 1 hr then 150 mL/hr for 1 hr.
oxytocin 2022-0 2022- No 300mL/h 300 mL/hr, Univers (PITOCIN) 04-25 IV ity of 30 units in 08:42: 07:02 Infusion, [place] NS 500 mL 46 :59 SEE-INSTRU Medi [...] 04-25 CONTINUOUS ity of (NAROPIN 06:40: PRN, [place] ()) 00 Starting Medical epidural on Fri Branch infusion 04/25/22 at 0040, Until Discontinu ed, Routine, Intra-op fentaNYL-ro Yes Epidural, U nivers pivacaine 2 04-24 CONTINUOUS it y of mcg/mL-0.1 17:33: PRN, [place] % () in 00 Starting Medica l [...] of 30 units in 15:36: 07:02 Infusion, [place] NS 500 mL 22 :59 TITRATE, Medica [...] hydroxide-s 04-24 Oral, ity of imeth 01:37: [id number], [place] (MAALOX 05 Starting Medical PLUS / [...] 04-24 Oral, ity of imeth 01:37: 07:02 [id number], [place] (MAALOX 05 :59 Starting Medical PLUS [...] 0102, Routine, Constipati on fluconazole 2022- No [id number] 150mg Take 1 Univers (DIFLUCAN) 04-23 tablet by ity of 150 mg 00:00: 00:00 mouth [place] tablet 00 :00 now for 1 Medical dose. Branch fluconazole 2022- No [id number] 150mg Take 1 Univers (DIFLUCAN) 04-23 tablet by ity of 150 mg 00:00: 00:00 [place] tablet 00 :00 now for 1 Medical dose. Branch fluconazole 2022- Yes [id number] 150mg Take 1 Univers (DIFLUCAN) 04-23 tablet by ity of 150 mg 00:00: 05:59 mouth [place] tablet 00 :00 now for 1 Medical dose. Branch ferrous Yes [id number] 325mg Take 1 Un cheyanne sulfate 325 2-15 tablet by ity of mg (65 mg 00:00: [place] iron[place] 00 the Medical tablet morning Branch and 1 tablet in the evening. ascorbic Yes [id number] 500mg Take 1 [facility] acid, 2-15 tablet by ity of vitamin C, 00:00: mouth in [place] 500 mg 00 the Medical tablet morning Branch and 1 tablet at noon and 1 tablet in the evening. ferrous Yes [id number] 325mg Take 1 [facility] [place] sulfate 325 2-15 tablet by ity of mg (65 mg 00:00: [place] iron[place] 00 the Medical tablet morning Branch and 1 tablet in the evening. ascorbic Yes [id number] 500mg Take 1 [facility] nivers acid, 2-15 tablet by ity of vitamin C, 00:00: mouth in [place] 500 mg 00 the Medical tablet morning Branch and 1 tablet at noon and 1 tablet in the evening. ferrous Yes [id number] 325mg Take 1 [facility] [place] sulfate 325 2-15 tablet by [facility] of mg (65 mg 00:00: [place] iron[place] 00 the Medical tablet morning Branch and 1 tablet in the evening. ascorbic 2022-0 Yes [id number] 500mg Take 1 [facility] n[facility] acid, 2-15 tablet by ity of vitamin C, 00:00: mouth in [place] 500 mg 00 the Medical tablet morning Branch and 1 tablet at noon and 1 tablet in the evening. ferrous 2022-0 Yes [id number] 325mg Take 1 [facility] [place] sulfate 325 2-15 tablet by [facility] of mg (65 mg 00:00: [place] iron[place] 00 the Medical tablet morning Branch and 1 tablet in the evening. ascorbic 2022-0 Yes [id number] 500mg Take 1 [facility] nivers acid, 2-15 tablet by ity of vitamin C, 00:00: mouth in [place] 500 mg 00 the Medical tablet morning Branch and 1 tablet at noon and 1 tablet in the evening. ferrous 2022-0 Yes [id number] 325mg Take 1 [facility] [place] sulfate 325 2-15 tablet by it[facility] of mg (65 mg 00:00: [place] iron[place] 00 the Medical tablet morning Branch and 1 tablet in the evening. ascorbic 0 Yes [id number] 500mg Take 1 [facility] nivers acid, 2-15 tablet by ity of vitamin C, 00:00: mouth in [place] 500 mg 00 the Medical tablet morning Branch and 1 tablet at noon and 1 tablet in the evening. ferrous 2022-0 Yes [id number] 325mg Take 1 [facility] [place] sulfate 325 2-15 tablet by [facility] of mg (65 mg 00:00: [place] iron[place] 00 the Medical tablet morning Branch and 1 tablet in the evening. ascorbic 2022-0 Yes [id number] 500mg Take 1 [facility] nivers acid, 2-15 tablet by ity of vitamin C, 00:00: mouth in [place] 500 mg 00 the Medical tablet morning Branch and 1 tablet at noon and 1 tablet in the evening. ferrous 0 2022- No [id number] 325mg Take 1 [facility] nivers sulfate 325 2-15 -04 tablet by it y of mg (65 mg 00:00: 00:00 mouth in [place] iron) 00 :00 the Medical tablet morning Branch and 1 tablet in the evening. ascorbic 0 2022- No [id number] 500mg Take 1 [facility] acid, 2-15 -04 tablet by ity of vitamin C, 00:00: 00:00 mouth in [place] 500 mg 00 :00 the Medical tablet morning Branch and 1 tablet at noon and 1 tablet in the evening. ferrous 2022- No [id number] 325mg Take 1 [facility] nivers sulfate 325 04-09- tablet by it y of mg (65 mg 00:00: 00:00 mouth in [place] iron) 00 :00 the Medical tablet morning Branch and 1 tablet in the evening. ascorbic 2022- No [id number] 500mg Take 1 [facility] acid, 2- tablet by ity of vitamin C, 00:00: 00:00 mouth in [place] 500 mg 00 :00 the Medical tablet morning Branch and 1 tablet at noon and 1 tablet in the evening. fluconazole 2022- No [id number] 150mg Take 1 [facility] (DIFLUCAN) 2-14 -15 tablet by ity of 150 mg 00:00: 05:59 mouth [place] tablet 00 :00 now for 1 Medical dose. Branch metroNIDAZO 0 Yes [id number] 500mg Take 1 [facility] LE 500 mg 2-02 tablet by ity o f tablet 00:00: mouth in [place] 00 the Medical morning Branch and 1 tablet in the evening. metroNIDAZO 2022-0 Yes [id number] 500mg Take 1 [facility] LE 500 mg 2-02 tablet by ity o f tablet 00:00: mouth in [place] 00 the Medical morning Branch and 1 tablet in the evening. metroNIDAZO 2022-0 Yes [id number] 500mg Take 1 [facility] LE 500 mg 2-02 tablet by ity o f tablet 00:00: mouth in [place] 00 the Medical morning Branch and 1 tablet in the evening. metroNIDAZO 2022-0 Yes [id number] 500mg Take 1 [facility] LE 500 mg 2-02 tablet by ity o f tablet 00:00: mouth in [place] 00 the Medical morning Branch and 1 tablet in the evening. metroNIDAZO 2022-0 Yes [id number] 500mg Take 1 [facility] LE 500 mg 2-02 tablet by ity o f tablet 00:00: mouth in [place] 00 the Medical morning Branch and 1 tablet in the evening. metroNIDAZO 2022-0 Yes [id number] 500mg Take 1 [facility] LE 500 mg 2-02 tablet by ity o f tablet 00:00: mouth in [place] 00 the Medical morning Branch and 1 tablet in the evening. metroNIDAZO 2022-0 Yes [id number] 500mg Take 1 [facility] LE 500 mg 2-02 tablet by ity o f tablet 00:00: mouth in [place] 00 the Medical morning Branch and 1 tablet in the evening. metroNIDAZO 2022-0 Yes [id number] 500mg Take 1 [facility] LE 500 mg 2-02 tablet by ity o f tablet 00:00: mouth in [place] 00 the Medical morning Branch and 1 tablet in the evening. metroNIDAZO 2022-0 Yes [id number] 500mg Take 1 [facility] LE 500 mg 2-02 tablet by ity o f tablet 00:00: mouth in [place] 00 the Medical morning Branch and 1 tablet in the evening. metroNIDAZO 2022-0 Yes [id number] 500mg Take 1 [facility] LE 500 mg 2-02 tablet by ity o f tablet 00:00: mouth in [place] 00 the Medical morning Branch and 1 tablet in the evening. metroNIDAZO 2022-0 Yes [id number] 500mg Take 1 [facility] LE 500 mg 2-02 tablet by ity o f tablet 00:00: mouth in [place] 00 the [facility] morning Branch and 1 tablet in the evening. metroNIDAZO 2022-0 2022- No [id number] 500mg Take 1 [facility] LE 500 mg 2-02 03-04 tablet by ity of tablet 00:00: 00:00 mouth in [place] 00 :00 the Medical morning Branch and 1 tablet in the evening. metroNIDAZO 2022-0 3- No [id number] 500mg Take 1 [facility] LE 500 mg 2-02 03-04 tablet by ity of tablet 00:00: 00:00 mouth in [place] 00 :00 the [facility] morning Branch and 1 tablet in the evening. fluconazole 2022-0 2022- No [id number] 150mg Take 1 [facility] (DIFLUCAN) 03-25 tablet by ity of 150 mg 00:00: 05:59 mouth [place] tablet 00 :00 now for 1 Medical dose. Branch fluconazole 2022-0 2022- No [id number] 150mg Take 1 [facility] (DIFLUCAN) 03-25 tablet by ity of 150 mg 00:00: 05:59 mouth [place] tablet 00 :00 now for 1 Medical dose. Branch fluconazole 2022- No [id number] 150mg Take 1 [facility] (DIFLUCAN) 03-25 tablet by ity of 150 mg 00:00: 05:59 mouth [place] tablet 00 :00 now for 1 Medical dose. Branch fluconazole 2022- No [id number] 150mg Take 1 [facility] (DIFLUCAN) 03-25 tablet [...] Oral, ity of batool acid 00:00: PC+HS, [place] (BICITRA) 00 First dose Medi vipin [id number] [...] Discontinu ed, Routine 2021-02- No Take by [facility] vit 2-11 12-11 mouth. ity of no.124/iron 18:49: 00:00 [place] /folic 59 :00 Medical ( Branch VITAMIN ORAL) 2021-02- No Take by [facility] rs vit 2-11 12-11 mouth. ity of no.124/iron 18:49: 00:00 [place] /folic 59 :00 Medical ( Branch VITAMIN ORAL) 2021-02 Yes Take by Un[facility] s vit 2-11 mouth. ity of no.124/iron 18:33: [place] /folic 28 Medical ( Branch VITAMIN ORAL) Iron Fum & 2021-02 Yes [id number] 1{capsu Take 1 [facility] P-FA-Vit B 2-11 le} capsule by ity of & C No.9 00:00: mouth [place] (INTEGRA daily. Medical PLUS) 125 Branch mg iron- 1 mg Cap Iron Fum & 2021-02 Yes [id number] 1{capsu Take 1 [facility] P-FA-Vit B 2-11 le} capsule by ity of & C No.9 00:00: mouth [place] (INTEGRA daily. Medical PLUS) 125 Branch mg iron- 1 mg Cap Iron Fum & 2021-02 Yes [id number] 1{capsu Take 1 [facility] P-FA-Vit B 2-11 le} capsule by ity of & C No.9 00:00: mouth [place] (INTEGRA daily. Medical PLUS) 125 Branch mg iron- 1 mg Cap Iron Fum & 2021-02 Yes [id number] 1{capsu Take 1 [facility] P-FA-Vit B 2-11 le} capsule by ity of & C No.9 00:00: mouth [place] (INTEGRA daily. Medical PLUS) 125 Branch mg iron- 1 mg Cap Iron Fum & 2021-02 Yes [id number] 1{capsu Take 1 [facility] P-FA-Vit B 2-11 le} capsule by ity of & C No.9 00:00: mouth [place] (INTEGRA daily. Medical PLUS) 125 Branch mg iron- 1 mg Cap Iron Fum & 2021-02 Yes [id number] 1{capsu Take 1 [facility] P-FA-Vit B 2-11 le} capsule by ity of & C No.9 00:00: mouth [place] (INTEGRA daily. Medical PLUS) 125 Branch mg iron- 1 mg Cap Iron Fum & 2021-02 Yes [id number] 1{capsu Take 1 [facility] P-FA-Vit B 2-11 le} capsule by ity of & C No.9 00:00: mouth [place] (INTEGRA daily. Medical PLUS) 125 Branch mg iron- 1 mg Cap Iron Fum & 2021-02 Yes [id number] 1{capsu Take 1 [facility] P-FA-Vit B 2-11 [...] mg Cap Iron Fum & 2021-02 Yes [id number] 1{capsu Take 1 [facility] P-FA-Vit B 2-11 [...] mg Cap Iron Fum & 2021-02 Yes [id number] 1{capsu Take 1 [facility] P-FA-Vit B 2-11 [...] mg Cap Iron Fum & 2021-02 Yes [id number] 1{capsu Take 1 [facility] P-FA-Vit B 2-11 le} capsule by ity of & C No.9 00:00: mouth [place] (INTEGRA 00 daily. Medical PLUS) 125 Branch mg iron- 1 mg Cap Iron Fum & 2021-02 Yes [id number] 1{capsu Take 1 [facility] P-FA-Vit B 2-11 le} capsule by ity of & C No.9 00:00: mouth [place] (INTEGRA 00 daily. Medical PLUS) 125 Branch mg iron- 1 mg Cap Iron Fum & 2021-02 Yes [id number] 1{capsu Take 1 [facility] P-FA-Vit B 2-11 le} capsule by ity of & C No.9 00:00: mouth [place] (INTEGRA 00 daily. Medical PLUS) 125 Branch mg iron- 1 mg Cap Iron Fum & 2021-02 Yes [id number] 1{capsu Take 1 [facility] P-FA-Vit B 2-11 le} capsule by ity of & C No.9 00:00: mouth [place] (INTEGRA 00 daily. Medical PLUS) 125 Branch mg iron- 1 mg Cap Iron Fum & 2021-02- No [id number] 1{capsu Take 1 [facility] P-FA-Vit B 2-11 03-04 le} capsule by it y of & C No.9 00:00: 00:00 mouth [place] (INTEGRA 00 :00 daily. Medical PLUS) 125 Branch mg iron- 1 mg Cap Iron Fum & 2021-02- No [id number] 1{capsu Take 1 [facility] P-FA-Vit B 2-11 [...] ( Branch VITAMIN ORAL) montelukast 2021- No [id number] 10mg Take 1 [facility] 10 mg 10-24 103 tablet by ity of tablet 00:00: 05:59 mouth [place] 00 :00 every Medical evening Branch for 90 days. montelukast 2021- No [id number] 10mg Take 1 [facility] 10 mg 10-24 103 tablet by ity of tablet 00:00: 05:59 mouth [place] 00 :00 every Medical evening Branch for 90 days. montelukast 2021- No [id number] 10mg Take 1 [facility] 10 mg 10-24 103 tablet by ity of tablet 00:00: 05:59 mouth [place] 00 :00 every Medical evening Branch for 90 days. montelukast 2021- No [id number] 10mg Take 1 [facility] 10 mg 10-24 103 tablet by ity of tablet 00:00: 05:59 mouth [place] 00 :00 every Medical evening Branch for 90 days. montelukast 2021- No [id number] 10mg Take 1 [facility] 10 mg 10-24 103 tablet by ity of tablet 00:00: 05:59 mouth [place] 00 :00 every Medical evening Branch for 90 days. montelukast 2021- No [id number] 10mg Take 1 [facility] 10 mg 10-24 103 tablet by ity of tablet 00:00: 05:59 mouth [place] 00 :00 every Medical evening Branch for 90 days. montelukast 2021- No [id number] 10mg Take 1 [facility] 10 mg 10-24 103 tablet by ity of tablet 00:00: 05:59 mouth [place] 00 :00 every Medical evening Branch for 90 days. montelukast 2021- No [id number] 10mg Take 1 [facility] 10 mg 10-24 103 tablet by ity of tablet 00:00: 05:59 mouth [place] 00 :00 every Medical evening Branch for 90 days. montelukast 2021- No [id number] 10mg Take 1 [facility] 10 mg 10-24 103 tablet by ity of tablet 00:00: 05:59 mouth [place] 00 :00 every Medical evening Branch for 90 days. montelukast 2021- No [id number] 10mg Take 1 [facility] 10 mg 10-24 103 tablet by ity of tablet 00:00: 05:59 mouth [place] 00 :00 every Medical evening Branch for 90 days. montelukast 2021- No [id number] 10mg Take 1 [facility] 10 mg 10-24 103 tablet by ity of tablet 00:00: 05:59 mouth [place] 00 :00 every Medical evening Branch for 90 days. montelukast 2021- No [id number] 10mg Take 1 [facility] 10 mg 10-24 103 tablet by ity of tablet 00:00: 05:59 mouth [place] 00 :00 every Medical evening Branch for 90 days. PNV 67-iron Yes [id number] 1{each} Take 1 [facility] ps-folate 8-26 Each by ity of no.1-dha 00:00: mouth [place] (VITAFOL 00 daily. Medical ULTRA) 29 Branch mg iron- 1 mg-200 mg Cap PNV 67-iron Yes [id number] 1{each} Take 1 [facility] ps-folate 8-26 Each by ity of no.1-dha 00:00: mouth [place] (VITAFOL 00 daily. Medical ULTRA) 29 Branch mg iron- 1 mg-200 mg Cap PNV 67-iron 2021-0 Yes [id number] 1{each} Take 1 [facility] ps-folate 8-26 Each by ity of no.1-dha 00:00: mouth [place] (VITAFOL 00 daily. Medical ULTRA) 29 Branch mg iron- 1 mg-200 mg Cap PNV 67-iron 2021-0 Yes [id number] 1{each} Take 1 [facility] ps-folate 8-26 Each by ity of no.1-dha 00:00: mouth [place] (VITAFOL 00 daily. Medical ULTRA) 29 Branch mg iron- 1 mg-200 mg Cap PNV 67-iron 2021-0 Yes [id number] 1{each} Take 1 [facility] ps-folate 8-26 Each by ity of no.1-dha 00:00: mouth [place] (VITAFOL 00 daily. Medical ULTRA) 29 Branch mg iron- 1 mg-200 mg Cap PNV 67-iron 2021-0 Yes [id number] 1{each} Take 1 [facility] ps-folate 8-26 Each by ity of no.1-dha 00:00: mouth [place] (VITAFOL 00 daily. Medical ULTRA) 29 Branch mg iron- 1 mg-200 mg Cap PNV 67-iron 2021-0 Yes [id number] 1{each} Take 1 [facility] ps-folate 8-26 Each by ity of no.1-dha 00:00: mouth [place] (VITAFOL 00 daily. Medical ULTRA) 29 Branch mg iron- 1 mg-200 mg Cap PNV 67-iron 2021-0 Yes [id number] 1{each} Take 1 [facility] ps-folate 8-26 Each by ity of no.1-dha 00:00: mouth [place] (VITAFOL 00 daily. Medical ULTRA) 29 Branch mg iron- 1 mg-200 mg Cap PNV 67-iron 2-0 Yes [id number] 1{each} Take 1 [facility] ps-folate 8-26 Each by ity of no.1-dha 00:00: mouth [place] (VITAFOL 00 daily. Medical ULTRA) 29 Branch mg iron- 1 mg-200 mg Cap PNV 67-iron 2-0 Yes [id number] 1{each} Take 1 [facility] ps-folate 8-26 Each by ity of no.1-dha 00:00: mouth [place] (VITAFOL 00 daily. Medical ULTRA) 29 Branch mg iron- 1 mg-200 mg Cap PNV 67-iron 2021-0 Yes [id number] 1{each} Take 1 [facility] ps-folate 8-26 Each by ity of no.1-dha 00:00: mouth [place] (VITAFOL 00 daily. Medical ULTRA) 29 Branch mg iron- 1 mg-200 mg Cap PNV 67-iron 2021-0 Yes [id number] 1{each} Take 1 [facility] ps-folate 8-26 Each by ity of no.1-dha 00:00: mouth [place] (VITAFOL 00 daily. Medical ULTRA) 29 Branch mg iron- 1 mg-200 mg Cap PNV 67-iron 2021-0 Yes [id number] 1{each} Take 1 [facility] ps-folate 8-26 Each by ity of no.1-dha 00:00: mouth [place] (VITAFOL 00 daily. Medical ULTRA) 29 Branch mg iron- 1 mg-200 mg Cap PNV 67-iron 2021-0 Yes [id number] 1{each} Take 1 [facility] ps-folate 8-26 Each by ity of no.1-dha 00:00: mouth [place] (VITAFOL 00 daily. Medical ULTRA) 29 Branch mg iron- 1 mg-200 mg Cap PNV 67-iron 2021-0 Yes [id number] 1{each} Take 1 [facility] ps-folate 8-26 Each by ity of no.1-dha 00:00: mouth [place] (VITAFOL 00 daily. Medical ULTRA) 29 Branch mg iron- 1 mg-200 mg Cap PNV 67-iron 2021-0 Yes [id number] 1{each} Take 1 [facility] ps-folate 8-26 Each by ity of no.1-dha 00:00: mouth [place] (VITAFOL 00 daily. Medical ULTRA) 29 Branch mg iron- 1 mg-200 mg Cap PNV 67-iron 2-0 Yes [id number] 1{each} Take 1 [facility] ps-folate 8-26 Each by ity of no.1-dha 00:00: mouth [place] (VITAFOL 00 daily. Medical ULTRA) 29 Branch mg iron- 1 mg-200 mg Cap PNV 67-iron 2022-0 Yes [id number] 1{each} Take 1 [facility] ps-folate 8-26 Each by ity of no.1-dha 00:00: mouth [place] (VITAFOL 00 daily. Medical ULTRA) 29 Branch mg iron- 1 mg-200 mg Cap PNV 67-iron 2021-0 Yes [id number] 1{each} Take 1 [facility] ps-folate 8-26 Each by ity of no.1-dha 00:00: mouth [place] (VITAFOL 00 daily. Medical ULTRA) 29 Branch mg iron- 1 mg-200 mg Cap PNV 67-iron 2021-0 Yes [id number] 1{each} Take 1 [facility] ps-folate 8-26 Each by ity of no.1-dha 00:00: mouth [place] (VITAFOL 00 daily. Medical ULTRA) 29 Branch mg iron- 1 mg-200 mg Cap PNV 67-iron 2021-0 Yes [id number] 1{each} Take 1 [facility] ps-folate 8-26 Each by ity of no.1-dha 00:00: mouth [place] (VITAFOL 00 daily. Medical ULTRA) 29 Branch mg iron- 1 mg-200 mg Cap PNV 67-iron 2021-0 Yes [id number] 1{each} Take 1 [facility] ps-folate 8-26 Each by ity of no.1-dha 00:00: mouth [place] (VITAFOL 00 daily. Medical ULTRA) 29 Branch mg iron- 1 mg-200 mg Cap PNV 67-iron 2021-0 Yes [id number] 1{each} Take 1 [facility] ps-folate 8-26 Each by ity of no.1-dha 00:00: mouth [place] (VITAFOL 00 daily. Medical ULTRA) 29 Branch mg iron- 1 mg-200 mg Cap PNV 67-iron 2021-0 Yes [id number] 1{each} Take 1 [facility] ps-folate 8-26 Each by ity of no.1-dha 00:00: mouth [place] (VITAFOL 00 daily. Medical ULTRA) 29 Branch mg iron- 1 mg-200 mg Cap PNV 67-iron 2-0 Yes [id number] 1{each} Take 1 [facility] ps-folate 8-26 Each by ity of no.1-dha 00:00: mouth [place] (VITAFOL 00 daily. Medical ULTRA) 29 Branch mg iron- 1 mg-200 mg Cap PNV 67-iron 2-0 Yes [id number] 1{each} Take 1 [facility] ps-folate 8-26 Each by ity of no.1-dha 00:00: mouth [place] (VITAFOL 00 daily. Medical ULTRA) 29 Branch mg iron- 1 mg-200 mg Cap PNV 67-iron 2-0 Yes [id number] 1{each} Take 1 [facility] ps-folate 8-26 Each by ity of no.1-dha 00:00: mouth [place] (VITAFOL 00 daily. Medical ULTRA) 29 Branch mg iron- 1 mg-200 mg Cap PNV 67-iron 2-0 Yes [id number] 1{each} Take 1 [facility] ps-folate 8-26 Each by ity of no.1-dha 00:00: mouth [place] (VITAFOL 00 daily. Medical ULTRA) 29 Branch mg iron- 1 mg-200 mg Cap PNV 67-iron 2-0 Yes [id number] 1{each} Take 1 [facility] ps-folate 8-26 Each by ity of no.1-dha 00:00: mouth [place] (VITAFOL 00 daily. Medical ULTRA) 29 Branch mg iron- 1 mg-200 mg Cap PNV 67-iron 2021-0 Yes [id number] 1{each} Take 1 [facility] ps-folate 8-26 Each by ity of no.1-dha 00:00: mouth [place] (VITAFOL 00 daily. Medical ULTRA) 29 Branch mg iron- 1 mg-200 mg Cap PNV 67-iron 2-0 Yes [id number] 1{each} Take 1 [facility] ps-folate 8-26 Each by ity of no.1-dha 00:00: mouth [place] (VITAFOL 00 daily. Medical ULTRA) 29 Branch mg iron- 1 mg-200 mg Cap PNV 67-iron 2-0 Yes [id number] 1{each} Take 1 [facility] ps-folate 8-26 Each by ity of no.1-dha 00:00: mouth [place] (VITAFOL 00 daily. Medical ULTRA) 29 Branch mg iron- 1 mg-200 mg Cap PNV 67-iron 2-0 Yes [id number] 1{each} Take 1 [facility] ps-folate 8-26 Each by ity of no.1-dha 00:00: mouth [place] (VITAFOL 00 daily. Medical ULTRA) 29 Branch mg iron- 1 mg-200 mg Cap PNV 67-iron 2022-0 Yes [id number] 1{each} Take 1 [facility] ps-folate 8-26 Each by ity of no.1-dha 00:00: mouth [place] (VITAFOL 00 daily. Medical ULTRA) 29 Branch mg iron- 1 mg-200 mg Cap PNV 67-iron 2-0 Yes [id number] 1{each} Take 1 [facility] ps-folate 8-26 Each by ity of no.1-dha 00:00: mouth [place] (VITAFOL 00 daily. Medical ULTRA) 29 Branch mg iron- 1 mg-200 mg Cap PNV 67-iron 2-0 Yes [id number] 1{each} Take 1 [facility] ps-folate 8-26 Each by ity of no.1-dha 00:00: mouth [place] (VITAFOL 00 daily. Medical ULTRA) 29 Branch mg iron- 1 mg-200 mg Cap PNV 67-iron 2-0 Yes [id number] 1{each} Take 1 [facility] ps-folate 8-26 Each by ity of no.1-dha 00:00: mouth [place] (VITAFOL 00 daily. Medical ULTRA) 29 Branch mg iron- 1 mg-200 mg Cap PNV 67-iron 2-0 Yes [id number] 1{each} Take 1 [facility] ps-folate 8-26 Each by ity of no.1-dha 00:00: mouth [place] (VITAFOL 00 daily. Medical ULTRA) 29 Branch mg iron- 1 mg-200 mg Cap PNV 67-iron 2-0 Yes [id number] 1{each} Take 1 [facility] ps-folate 8-26 Each by ity of no.1-dha 00:00: mouth [place] (VITAFOL 00 daily. Medical ULTRA) 29 Branch mg iron- 1 mg-200 mg Cap PNV 67-iron 2-0 Yes [id number] 1{each} Take 1 [facility] ps-folate 8-26 Each by ity of no.1-dha 00:00: mouth [place] (VITAFOL 00 daily. Medical ULTRA) 29 Branch mg iron- 1 mg-200 mg Cap PNV 67-iron 2-0 Yes [id number] 1{each} Take 1 [facility] ps-folate 8-26 Each by ity of no.1-dha 00:00: mouth [place] (VITAFOL 00 daily. Medical ULTRA) 29 Branch mg iron- 1 mg-200 mg Cap PNV 67-iron 2021-0 Yes [id number] 1{each} Take 1 [facility] ps-folate 8-26 Each by ity of no.1-dha 00:00: mouth [place] (VITAFOL 00 daily. Medical ULTRA) 29 Branch mg iron- 1 mg-200 mg Cap PNV 67-iron 2021-0 Yes [id number] 1{each} Take 1 [facility] ps-folate 8-26 Each by ity of no.1-dha 00:00: mouth [place] (VITAFOL 00 daily. Medical ULTRA) 29 Branch mg iron- 1 mg-200 mg Cap PNV 67-iron 2021-0 Yes [id number] 1{each} Take 1 [facility] ps-folate 8-26 Each by ity of no.1-dha 00:00: mouth [place] (VITAFOL 00 daily. Medical ULTRA) 29 Branch mg iron- 1 mg-200 mg Cap PNV 67-iron 2021-0 Yes [id number] 1{each} Take 1 [facility] ps-folate 8-26 Each by ity of no.1-dha 00:00: mouth [place] (VITAFOL 00 daily. Medical ULTRA) 29 Branch mg iron- 1 mg-200 mg Cap PNV 67-iron 2-0 3- No [id number] 1{each} Take 1 [facility] ps-folate 8-26 03-04 Each by ity of no.1-dha 00:00: 00:00 mouth [place] (VITAFOL 00 :00 daily. Medical ULTRA) 29 Branch mg iron- 1 mg-200 mg Cap PNV 67-iron 2-0 3- No [id number] 1{each} Take 1 [facility] ps-folate 8-26 03-04 Each by ity of no.1-dha 00:00: 00:00 mouth [place] (VITAFOL 00 :00 daily. Medical ULTRA) 29 Branch mg iron- 1 mg-200 mg Cap Budesonide 2021-0 Yes [id number] 1{puff} Inhale 1 Univers 90 8-08 103 Puff in ity of mcg/actuati 00:00: the on aerosol 00 morning Medica l powder and 1 Puff Branch in the evening. Budesonide 2021-0 Yes [id number] 1{puff} Inhale 1 [facility] 90 8-08 103 Puff in ity of mcg/actuati 00:00: the on aerosol morning Medica l powder and 1 Puff Branch in the evening. Budesonide Yes [id number] 1{puff} Inhale 1 [facility] 90 8-08 103 Puff in ity of mcg/actuati 00:00: the on aerosol morning Medica l powder and 1 Puff Branch in the evening. Budesonide Yes [id number] 1{puff} Inhale 1 [facility] 90 8-08 103 Puff in ity of mcg/actuati 00:00: the on aerosol morning Medica l powder and 1 Puff Branch in the evening. Budesonide Yes [id number] 1{puff} Inhale 1 [facility] 90 8-08 103 Puff in ity of mcg/actuati 00:00: the [place] on aerosol morning Medica l powder and 1 Puff Branch in the evening. Budesonide Yes [id number] 1{puff} Inhale 1 [facility] 90 8-08 103 Puff in ity of mcg/actuati 00:00: the on aerosol morning Medica l powder and 1 Puff Branch in the evening. Budesonide Yes [id number] 1{puff} Inhale 1 [facility] 90 8-08 103 Puff in ity of mcg/actuati 00:00: the on aerosol morning Medica l powder and 1 Puff Branch in the evening. Budesonide Yes [id number] 1{puff} Inhale 1 [facility] 90 8-08 103 Puff in ity of mcg/actuati 00:00: the on aerosol morning Medica l powder and 1 Puff Branch in the evening. Budesonide 0 Yes [id number] 1{puff} Inhale 1 [facility] 90 8-08 103 Puff in ity of mcg/actuati 00:00: the on aerosol 00 morning Medica l powder and 1 Puff Branch in the evening. Budesonide 0 Yes [id number] 1{puff} Inhale 1 [facility] 90 8-08 103 Puff in ity of mcg/actuati 00:00: the on aerosol morning Medica l powder and 1 Puff Branch in the evening. Budesonide Yes [id number] 1{puff} Inhale 1 [facility] 90 8-08 103 Puff in ity of mcg/actuati 00:00: the [place] on aerosol 00 morning Medica l powder and 1 Puff Branch in the evening. Budesonide Yes [id number] 1{puff} Inhale 1 [facility] 90 8-08 103 Puff in ity of mcg/actuati 00:00: the on aerosol 00 morning Medica l powder and 1 Puff Branch in the evening. Budesonide Yes [id number] 1{puff} Inhale 1 [facility] 90 8-08 103 Puff in ity of mcg/actuati 00:00: the on aerosol 00 morning Medica l powder and 1 Puff Branch in the evening. Budesonide Yes [id number] 1{puff} Inhale 1 [facility] 90 8-08 103 Puff in ity of mcg/actuati 00:00: the [place] on aerosol morning Medica l powder and 1 Puff Branch in the evening. Budesonide Yes [id number] 1{puff} Inhale 1 [facility] 90 8-08 103 Puff in ity of mcg/actuati 00:00: the [place] on aerosol morning Medica l powder and 1 Puff Branch in the evening. Budesonide Yes [id number] 1{puff} Inhale 1 [facility] 90 8-08 103 Puff in ity of mcg/actuati 00:00: the [place] on aerosol morning Medica l powder and 1 Puff Branch in the evening. Budesonide Yes [id number] 1{puff} Inhale 1 [facility] 90 8-08 103 Puff in ity of mcg/actuati 00:00: the [place] on aerosol 00 morning Medica l powder and 1 Puff Branch in the evening. Budesonide Yes [id number] 1{puff} Inhale 1 [facility] 90 8-08 103 Puff in ity of mcg/actuati 00:00: the [place] on aerosol 00 morning Medica l powder and 1 Puff Branch in the evening. Budesonide Yes [id number] 1{puff} Inhale 1 [facility] 90 8-08 103 Puff in ity of mcg/actuati 00:00: the on aerosol morning Medica l powder and 1 Puff Branch in the evening. Budesonide Yes [id number] 1{puff} Inhale 1 [facility] 90 8-08 103 Puff in ity of mcg/actuati 00:00: the on aerosol morning Medica l powder and 1 Puff Branch in the evening. Budesonide Yes [id number] 1{puff} Inhale 1 [facility] 90 8-08 103 Puff in ity of mcg/actuati 00:00: the on aerosol morning Medica l powder and 1 Puff Branch in the evening. Budesonide Yes [id number] 1{puff} Inhale 1 [facility] 90 8-08 103 Puff in ity of mcg/actuati 00:00: the [place] on aerosol morning Medica l powder and 1 Puff Branch in the evening. Budesonide Yes [id number] 1{puff} Inhale 1 [facility] 90 8-08 103 Puff in ity of mcg/actuati 00:00: the [place] on aerosol morning Medica l powder and 1 Puff Branch in the evening. Budesonide Yes [id number] 1{puff} Inhale 1 Univers 90 8-08 103 Puff in ity of mcg/actuati 00:00: the [place] on aerosol morning Medica l powder and 1 Puff Branch in the evening. Budesonide Yes [id number] 1{puff} Inhale 1 Univers 90 8-08 103 Puff in ity of mcg/actuati 00:00: the on aerosol morning Medica l powder and 1 Puff Branch in the evening. Budesonide Yes [id number] 1{puff} Inhale 1 Univers 90 8-08 103 Puff in ity of mcg/actuati 00:00: the on aerosol 00 morning Medica l powder and 1 Puff Branch in the evening. Budesonide 0 Yes [id number] 1{puff} Inhale 1 Univers 90 8-08 103 Puff in ity of mcg/actuati 00:00: the [place] on aerosol 00 morning Medica l powder and 1 Puff Branch in the evening. Budesonide Yes [id number] 1{puff} Inhale 1 Univers 90 8-08 103 Puff in ity of mcg/actuati 00:00: the on aerosol 00 morning Medica l powder and 1 Puff Branch in the evening. Budesonide Yes [id number] 1{puff} Inhale 1 Univers 90 8-08 103 Puff in ity of mcg/actuati 00:00: the on aerosol 00 morning Medica l powder and 1 Puff Branch in the evening. Budesonide Yes [id number] 1{puff} Inhale 1 Univers 90 8-08 103 Puff in ity of mcg/actuati 00:00: the [place] on aerosol 00 morning Medica l powder and 1 Puff Branch in the evening. Budesonide Yes [id number] 1{puff} Inhale 1 Univers 90 8-08 103 Puff in ity of mcg/actuati 00:00: the [place] on aerosol morning Medica l powder and 1 Puff Branch in the evening. Budesonide Yes [id number] 1{puff} Inhale 1 Univers 90 8-08 103 Puff in ity of mcg/actuati 00:00: the [place] on aerosol morning Medica l powder and 1 Puff Branch in the evening. Budesonide Yes [id number] 1{puff} Inhale 1 Univers 90 8-08 103 Puff in ity of mcg/actuati 00:00: the [place] on aerosol morning Medica l powder and 1 Puff Branch in the evening. Budesonide Yes [id number] 1{puff} Inhale 1 Univers 90 8-08 103 Puff in ity of mcg/actuati 00:00: the [place] on aerosol 00 morning Medica l powder and 1 Puff Branch in the evening. Budesonide Yes [id number] 1{puff} Inhale 1 Univers 90 8-08 103 Puff in ity of mcg/actuati 00:00: the [place] on aerosol 00 morning Medica l powder and 1 Puff Branch in the evening. Budesonide Yes [id number] 1{puff} Inhale 1 Univers 90 8-08 103 Puff in ity of mcg/actuati 00:00: the on aerosol 00 morning Medica l powder and 1 Puff Branch in the evening. Budesonide Yes [id number] 1{puff} Inhale 1 Univers 90 8-08 103 Puff in ity of mcg/actuati 00:00: the on aerosol morning Medica l powder and 1 Puff Branch in the evening. Budesonide Yes [id number] 1{puff} Inhale 1 Univers 90 8-08 103 Puff in ity of mcg/actuati 00:00: the on aerosol morning Medica l powder and 1 Puff Branch in the evening. Budesonide Yes [id number] 1{puff} Inhale 1 Univers 90 8-08 103 Puff in ity of mcg/actuati 00:00: the on aerosol morning Medica l powder and 1 Puff Branch in the evening. Budesonide Yes [id number] 1{puff} Inhale 1 Univers 90 8-08 103 Puff in ity of mcg/actuati 00:00: the on aerosol morning Medica l powder and 1 Puff Branch in the evening. Budesonide Yes [id number] 1{puff} Inhale 1 [facility] 90 8-08 103 Puff in ity of mcg/actuati 00:00: the on aerosol morning Medica l powder and 1 Puff Branch in the evening. Budesonide Yes [id number] 1{puff} Inhale 1 Univers 90 8-08 103 Puff in ity of mcg/actuati 00:00: the on aerosol morning Medica l powder and 1 Puff Branch in the evening. Budesonide Yes [id number] 1{puff} Inhale 1 Univers 90 8-08 103 Puff in ity of mcg/actuati 00:00: the on aerosol 00 morning Medica l powder and 1 Puff Branch in the evening. Budesonide Yes [id number] 1{puff} Inhale 1 Univers 90 8-08 103 Puff in ity of mcg/actuati 00:00: the on aerosol 00 morning Medica l powder and 1 Puff Branch in the evening. Budesonide Yes [id number] 1{puff} Inhale 1 Univers 90 8-08 103 Puff in ity of mcg/actuati 00:00: the [place] on aerosol 00 morning Medica l powder and 1 Puff Branch in the evening. Budesonide 3- No [id number] 1{puff} Inhale 1 Univers 90 8-08 03-04 103 Puff in ity of mcg/actuati 00:00: 00:00 the [place] on aerosol 00 :00 morning Medica l powder and 1 Puff Branch in the evening. Budesonide 2022- No [id number] 1{puff} Inhale 1 Univers 90 8-08 03-04 103 Puff in ity of mcg/actuati 00:00: 00:00 the [place] on aerosol 00 :00 morning Medica l [...] ( Branch VITAMIN ORAL) Yes Take by [facility] s vit 7-11 mouth. ity of no.124/iron 15:57: [place] /folic 30 Medical ( Branch VITAMIN ORAL) Immunizations Ordered Filled Immunization Date Status Comments [facility] e Immunization Name Name [facility] 2022-06-06 Completed University of 00:00:00 [place] [address] 2022-06-06 Completed University of 00:00:00 [facility] 2022-06-06 Completed University of 00:00:00 [facility] 2022-06-06 Completed University of 00:00:00 [facility] 2022-06-06 Completed University of 00:00:00 [place] [address] 2022-06-06 Completed University of 00:00:00 [facility] 2022-06-06 Completed University of 00:00:00 [place] [address] 2022-04-26 Completed University of 00:00:00 [facility] [place] Varicella 2022-04-26 Completed University of (varivax)(chicken 00:00:00 [place] [facility] pox) Branch [facility] 2022-04-26 Completed University of 00:00:00 [facility] [place] Varicella 2022-04-26 Completed University of (varivax)(chicken 00:00:00 [place] [facility] pox) Branch [facility] 2022-04-26 Completed University of 00:00:00 [facility] [place] Varicella 2022-04-26 Completed University of (varivax)(chicken 00:00:00 [place] [facility] pox) Branch [facility] 2022-04-26 Completed University of 00:00:00 [facility] [place] Varicella 2022-04-26 Completed University of (varivax)(chicken 00:00:00 [place] [facility] pox) Branch [facility] 2022-04-26 Completed University of 00:00:00 [facility] [place] Varicella 2022-04-26 Completed University of (varivax)(chicken 00:00:00 [place] [facility] pox) Branch [facility] 2022-04-26 Completed University of 00:00:00 [facility] [place] Varicella 2022-04-26 Completed University of (varivax)(chicken 00:00:00 [place] [facility] pox) Branch [facility] 2022-04-26 Completed University of 00:00:00 [facility] [place] Varicella 2022-04-26 Completed University of (varivax)(chicken 00:00:00 [place] [facility] pox) Branch [facility] 2022-04-26 Completed University of 00:00:00 [facility] [place] Varicella 2022-04-26 Completed University of (varivax)(chicken 00:00:00 [place] [facility] pox) Branch [facility] 2022-04-26 Completed University of 00:00:00 [facility] [place] Varicella 2022-04-26 Completed University of (varivax)(chicken 00:00:00 [place] [facility] pox) Branch [facility] 2022-04-26 Completed University of 00:00:00 [facility] [place] Varicella 2022-04-26 Completed University of (varivax)(chicken 00:00:00 [place] [facility] pox) Branch [facility] 2022-04-26 Completed University of 00:00:00 [facility] [place] Varicella 2022-04-26 Completed University of (varivax)(chicken 00:00:00 [place] [facility] pox) Branch [facility] 2022-04-26 Completed University of 00:00:00 [facility] [place] Varicella 2022-04-26 Completed University of (varivax)(chicken 00:00:00 [place] [facility] pox) Branch [facility] 2022-04-26 Completed University of 00:00:00 [facility] [place] Varicella 2022-04-26 Completed University of (varivax)(chicken 00:00:00 [place] [facility] pox) Branch [facility] 2022-04-26 Completed University of 00:00:00 [facility] [place] Varicella 2022-04-26 Completed University of (varivax)(chicken 00:00:00 [place] [facility] pox) Branch [facility] 2022-04-26 Completed University of 00:00:00 [facility] [place] Varicella 2022-04-26 Completed University of (varivax)(chicken 00:00:00 [place] [facility] pox) Branch [facility] 2022-04-26 Completed University of 00:00:00 [facility] [place] Varicella 2022-04-26 Completed University of (varivax)(chicken 00:00:00 [place] [facility] pox) Branch [facility] 2022-04-26 Completed University of 00:00:00 [facility] [place] Varicella 2022-04-26 Completed University of (varivax)(chicken 00:00:00 [place] [facility] pox) Branch HPV9 2022-04-26 Completed University of 00:00:00 [facility] [place] Varicella 2022-04-26 Completed University of (varivax)(chicken 00:00:00 [place] [facility] pox) Branch HPV9 2022-04-26 Completed University of 00:00:00 [facility] [place] Varicella 2022-04-26 Completed University of (varivax)(chicken 00:00:00 [place] [facility] pox) Branch HPV9 2022-04-26 Completed University of 00:00:00 [facility] [place] Varicella 2022-04-26 Completed University of (varivax)(chicken 00:00:00 [place] [facility] pox) Branch TDAP 2022-01-31 Completed University of 00:00:00 [facility] [place] TDAP 2022-01-31 Completed University of 00:00:00 [facility] [place] TDAP 2022-01-31 Completed University of 00:00:00 [facility] [place] TDAP 2022-01-31 Completed University of 00:00:00 [facility] [place] TDAP 2022-01-31 Completed University of 00:00:00 [facility] [place] TDAP 2022-01-31 Completed University of 00:00:00 [facility] [place] TDAP 2022-01-31 Completed University of 00:00:00 [facility] [place] TDAP 2022-01-31 Completed University of 00:00:00 [facility] [place] TDAP 2022-01-31 Completed University of 00:00:00 [facility] [place] TDAP 2022-01-31 Completed University of 00:00:00 [facility] [place] TDAP 2022-01-31 Completed University of 00:00:00 [facility] [place] TDAP 2022-01-31 Completed University of 00:00:00 [facility] [place] TDAP 2022-01-31 Completed University of 00:00:00 [facility] [place] TDAP 2022-01-31 Completed University of 00:00:00 [facility] [place] TDAP 2022-01-31 Completed University of 00:00:00 [facility] [place] TDAP 2022-01-31 Completed University of 00:00:00 [facility] [place] TDAP 2022-01-31 Completed University of 00:00:00 [facility] [place] TDAP 2022-01-31 Completed University of 00:00:00 [place] [facility] TDAP 2022-01-31 Completed University of 00:00:00 [place] [facility] TDAP 2022-01-31 Completed University of 00:00:00 [place] [facility] TDAP 2022-01-31 Completed University of 00:00:00 [place] [facility] TDAP 2022-01-31 Completed University of 00:00:00 [place] [facility] TDAP 2022-01-31 Completed University of 00:00:00 [place] [facility] TDAP 2022-01-31 Completed University of 00:00:00 [place] [facility] TDAP 2022-01-31 Completed University of 00:00:00 [place] [facility] TDAP 2022-01-31 Completed University of 00:00:00 [facility] TDAP 2022-01-31 Completed University of 00:00:00 [facility] TDAP 2022-01-31 Completed University of 00:00:00 [facility] TDAP 2022-01-31 Completed University of 00:00:00 [facility] TDAP 2022-01-31 Completed University of 00:00:00 [facility] TDAP 2022-01-31 Completed University of 00:00:00 [facility] TDAP 2022-01-31 Completed University of 00:00:00 [facility] TDAP 2022-01-31 Completed University of 00:00:00 [facility] TDAP 2022-01-31 Completed University of 00:00:00 [place] [facility] TDAP 2022-01-31 Completed University of 00:00:00 [place] [facility] TDAP 2022-01-31 Completed University of 00:00:00 [facility] TDAP 2022-01-31 Completed University of 00:00:00 [facility] TDAP 2022-01-31 Completed University of 00:00:00 [place] [facility] TDAP 2022-01-31 Completed University of 00:00:00 [place] [facility] TDAP 2022-01-31 Completed University of 00:00:00 [place] [facility] TDAP 2022-01-31 Completed University of 00:00:00 [place] [facility] TDAP 2022-01-31 Completed University of 00:00:00 [place] [facility] TDAP 2022-01-31 Completed University of 00:00:00 [place] [facility] TDAP 2022-01-31 Completed University of 00:00:00 [facility] [place] TDAP 2022-01-31 Completed University of 00:00:00 [place] [facility] TDAP 2022-01-31 Completed University of 00:00:00 [place] [facility] TDAP 2022-01-31 Completed University of 00:00:00 [place] [facility] TDAP 2022-01-31 Completed University of 00:00:00 [facility] [place] TDAP 2022-01-31 Completed University of 00:00:00 [facility] TDAP 2022-01-31 Completed University of 00:00:00 [facility] TDAP 2022-01-31 Completed University of 00:00:00 [facility] [place] TDAP 2022-01-31 Completed University of 00:00:00 [facility] [place] TDAP 2022-01-31 Completed University of 00:00:00 [facility] [place] SARS-COV-2 COVID-19 2020-11-23 Completed Unive rsity of PFIZER VACCINE 00:00:00 [facility] SARS-COV-2 COVID-19 2020-11-23 Completed Unive rsity of PFIZER VACCINE 00:00:00 [facility] SARS-COV-2 COVID-19 2020-11-23 Completed Unive rsity of PFIZER VACCINE 00:00:00 [facility] SARS-COV-2 COVID-19 2020-11-23 Completed Unive rsity of PFIZER VACCINE 00:00:00 [facility] SARS-COV-2 COVID-19 2020-11-23 Completed Unive rsity of PFIZER VACCINE 00:00:00 [facility] SARS-COV-2 COVID-19 2020-11-23 Completed Unive rsity of PFIZER VACCINE 00:00:00 [facility] SARS-COV-2 COVID-19 2020-11-23 Completed Unive rsity of PFIZER VACCINE 00:00:00 [facility] SARS-COV-2 COVID-19 2020-11-02 Completed Unive rsity of PFIZER VACCINE 00:00:00 [facility] SARS-COV-2 COVID-19 2020-11-02 Completed Unive rsity of PFIZER VACCINE 00:00:00 [facility] SARS-COV-2 COVID-19 2020-11-02 Completed Unive rsity of PFIZER VACCINE 00:00:00 [facility] SARS-COV-2 COVID-19 2020-11-02 Completed Unive rsity of PFIZER VACCINE 00:00:00 [facility] SARS-COV-2 COVID-19 2020-11-02 Completed Unive rsity of PFIZER VACCINE 00:00:00 [facility] SARS-COV-2 COVID-19 2020-11-02 Completed Unive rsity of PFIZER VACCINE 00:00:00 [facility] SARS-COV-2 COVID-19 2020-11-02 Completed Unive rsity of PFIZER VACCINE 00:00:00 [facility] DTaP, Unspecified 2004-07-11 Completed Univers ity of Formulation 00:00:00 [facility] [place] HIB 4 Dose Schedule 2004-07-11 Completed Unive rsity of 00:00:00 [facility] [place] MMR 2004-07-11 Completed University of 00:00:00 [facility] [place] IPV 2004-07-11 Completed University of 00:00:00 [facility] [place] DTaP, Unspecified 2004-07-11 Completed Univers ity of Formulation 00:00:00 [facility] [place] HIB 4 Dose Schedule 2004-07-11 Completed Unive rsity of 00:00:00 [facility] [place] MMR 2004-07-11 Completed University of 00:00:00 [facility] [place] IPV 2004-07-11 Completed University of 00:00:00 [facility] [place] DTaP, Unspecified 2004-07-11 Completed Univers ity of Formulation 00:00:00 [facility] [place] HIB 4 Dose Schedule 2004-07-11 Completed Unive rsity of 00:00:00 [facility] [place] MMR 2004-07-11 Completed University of 00:00:00 [facility] [place] IPV 2004-07-11 Completed University of 00:00:00 [facility] [place] DTaP, Unspecified 2004-07-11 Completed Univers ity of Formulation 00:00:00 [facility] [place] HIB 4 Dose Schedule 2004-07-11 Completed Unive rsity of 00:00:00 [facility] [place] MMR 2004-07-11 Completed University of 00:00:00 [facility] [place] IPV 2004-07-11 Completed University of 00:00:00 [facility] [place] DTaP, Unspecified 2004-07-11 Completed Univers ity of Formulation 00:00:00 [facility] [place] HIB 4 Dose Schedule 2004-07-11 Completed Unive rsity of 00:00:00 [facility] [place] MMR 2004-07-11 Completed University of 00:00:00 [facility] [place] IPV 2004-07-11 Completed University of 00:00:00 [facility] DTaP, Unspecified 2004-07-11 Completed Univers ity of Formulation 00:00:00 [facility] [place] HIB 4 Dose Schedule 2004-07-11 Completed Unive rsity of 00:00:00 [facility] [place] MMR 2004-07-11 Completed University of 00:00:00 [facility] [place] IPV 2004-07-11 Completed University of 00:00:00 [facility] DTaP, Unspecified 2004-07-11 Completed Univers ity of Formulation 00:00:00 [facility] [place] HIB 4 Dose Schedule 2004-07-11 Completed Unive rsity of 00:00:00 [facility] MMR 2004-07-11 Completed University of 00:00:00 [facility] [place] IPV 2004-07-11 Completed University of 00:00:00 [facility] DTaP, Unspecified 2003-02-03 Completed Univers ity of Formulation 00:00:00 [facility] [place] Hep B, Adol or Pedi 2003-02-03 Completed Unive rsity of Dosage 00:00:00 [facility] [place] IPV 2003-02-03 Completed University of 00:00:00 [facility] DTaP, Unspecified 2003-02-03 Completed Univers ity of Formulation 00:00:00 [facility] Hep B, Adol or Pedi 2003-02-03 Completed Unive rsity of Dosage 00:00:00 [facility] [place] IPV 2003-02-03 Completed University of 00:00:00 [facility] DTaP, Unspecified 2003-02-03 Completed Univers ity of Formulation 00:00:00 [facility] Hep B, Adol or Pedi 2003-02-03 Completed Unive rsity of Dosage 00:00:00 [facility] IPV 2003-02-03 Completed University of 00:00:00 [facility] DTaP, Unspecified 2003-02-03 Completed Univers ity of Formulation 00:00:00 [facility] Hep B, Adol or Pedi 2003-02-03 Completed Unive rsity of Dosage 00:00:00 [facility] [place] IPV 2003-02-03 Completed University of 00:00:00 [facility] DTaP, Unspecified 2003-02-03 Completed Univers ity of Formulation 00:00:00 [facility] Hep B, Adol or Pedi [...] Schedule 2002-07-27 Completed Unive rsity of 00:00:00 [facility] [place] IPV 2002-07-27 Completed University of 00:00:00 [facility] [place] DTaP, Unspecified 2002-07-27 Completed Univers ity of Formulation 00:00:00 [facility] [place] Hep B, Adol or Pedi 2002-07-27 Completed Unive rsity of Dosage 00:00:00 [facility] [place] HIB 4 Dose Schedule 2002-07-27 Completed Unive rsity of 00:00:00 [facility] [place] IPV 2002-07-27 Completed University of 00:00:00 [facility] [place] DTaP, Unspecified 2002-07-27 Completed Univers ity of Formulation 00:00:00 [facility] [place] Hep B, Adol or Pedi 2002-07-27 Completed Unive rsity of Dosage 00:00:00 [facility] [place] HIB 4 Dose Schedule 2002-07-27 Completed Unive rsity of 00:00:00 [facility] [place] IPV 2002-07-27 Completed University of 00:00:00 [facility] [place] DTaP, Unspecified 2002-07-27 Completed Univers ity of Formulation 00:00:00 [facility] [place] Hep B, Adol or Pedi 2002-07-27 Completed Unive rsity of Dosage 00:00:00 [facility] [place] HIB 4 Dose Schedule 2002-07-27 Completed Unive rsity of 00:00:00 [facility] [place] IPV 2002-07-27 Completed University of 00:00:00 [facility] [place] DTaP, Unspecified 2002-06-23 Completed Univers ity of Formulation 00:00:00 [facility] [place] HEPATITIS A 2002-06-23 Completed University of 00:00:00 [facility] [place] Hep B, Adol or Pedi 2002-06-23 Completed Unive rsity of Dosage 00:00:00 [facility] [place] HIB 4 Dose Schedule 2002-06-23 Completed Unive rsity of 00:00:00 [facility] [place] MMR 2002-06-23 Completed University of 00:00:00 [facility] [place] Pneumococcal 7 2002-06-23 Completed University of Conjugate, PCV7 00:00:00 [place] [facility] (Prevnar7) Branch Varicella 2002-06-23 Completed University of (varivax)(chicken 00:00:00 [place] [facility] pox) Branch IPV 2002-06-23 Completed University of 00:00:00 [facility] [place] DTaP, Unspecified 2002-06-23 Completed Univers ity of Formulation 00:00:00 [facility] [place] HEPATITIS A 2002-06-23 Completed University of 00:00:00 [facility] [place] Hep B, Adol or Pedi 2002-06-23 Completed Unive rsity of Dosage 00:00:00 [facility] [place] HIB 4 Dose Schedule 2002-06-23 Completed Unive rsity of 00:00:00 [facility] [place] MMR 2002-06-23 Completed University of 00:00:00 [facility] [place] Pneumococcal 7 2002-06-23 Completed University of Conjugate, PCV7 00:00:00 [place] [facility] (Prevnar7) Branch Varicella 2002-06-23 Completed University of (varivax)(chicken 00:00:00 [place] [facility] pox) Branch IPV 2002-06-23 Completed University of 00:00:00 [facility] [place] DTaP, Unspecified 2002-06-23 Completed Univers ity of Formulation 00:00:00 [facility] [place] HEPATITIS A 2002-06-23 Completed University of 00:00:00 [facility] [place] Hep B, Adol or Pedi 2002-06-23 Completed Unive rsity of Dosage 00:00:00 [facility] [place] HIB 4 Dose Schedule 2002-06-23 Completed Unive rsity of 00:00:00 [facility] [place] MMR 2002-06-23 Completed University of 00:00:00 [facility] [place] Pneumococcal 7 2002-06-23 Completed University of Conjugate, PCV7 00:00:00 [place] [facility] (Prevnar7) Branch Varicella 2002-06-23 Completed University of (varivax)(chicken 00:00:00 [place] [facility] pox) Branch IPV 2002-06-23 Completed University of 00:00:00 [facility] [place] DTaP, Unspecified 2002-06-23 Completed Univers ity of Formulation 00:00:00 [facility] [place] HEPATITIS A 2002-06-23 Completed University of 00:00:00 [facility] [place] Hep B, Adol or Pedi 2002-06-23 Completed Unive rsity of Dosage 00:00:00 [facility] [place] HIB 4 Dose Schedule 2002-06-23 Completed Unive rsity of 00:00:00 [facility] [place] MMR 2002-06-23 Completed University of 00:00:00 [facility] [place] Pneumococcal 7 2002-06-23 Completed University of Conjugate, PCV7 00:00:00 [place] [facility] (Prevnar7) Branch Varicella 2002-06-23 Completed University of (varivax)(chicken 00:00:00 [place] [facility] pox) Branch IPV 2002-06-23 Completed University of 00:00:00 [facility] [place] DTaP, Unspecified 2002-06-23 Completed Univers ity of Formulation 00:00:00 [facility] [place] HEPATITIS A 2002-06-23 Completed University of 00:00:00 [facility] [place] Hep B, Adol or Pedi 2002-06-23 Completed Unive rsity of Dosage 00:00:00 [facility] [place] HIB 4 Dose Schedule 2002-06-23 Completed Unive rsity of 00:00:00 [facility] [place] MMR 2002-06-23 Completed University of 00:00:00 [facility] [place] Pneumococcal 7 2002-06-23 Completed University of Conjugate, PCV7 00:00:00 [place] Med ical (Prevnar7) Branch Varicella 2002-06-23 Completed University of (varivax)(chicken 00:00:00 [place] [facility] pox) [facility] IPV 2002-06-23 Completed University of 00:00:00 [facility] DTaP, Unspecified 2002-06-23 Completed Univers ity of Formulation 00:00:00 [facility] HEPATITIS A 2002-06-23 Completed University of 00:00:00 [facility] Hep B, Adol or Pedi 2002-06-23 Completed Unive rsity of Dosage 00:00:00 [facility] HIB 4 Dose Schedule 2002-06-23 Completed Unive rsity of 00:00:00 [facility] MMR 2002-06-23 Completed University of 00:00:00 [facility] Pneumococcal 7 2002-06-23 Completed University of Conjugate, PCV7 00:00:00 [place] [facility] (Prevnar7) Branch Varicella 2002-06-23 Completed University of (varivax)(chicken 00:00:00 [place] [facility] pox) [facility] IPV 2002-06-23 Completed University of 00:00:00 [facility] DTaP, Unspecified 2002-06-23 Completed Univers ity of Formulation 00:00:00 [facility] HEPATITIS A 2002-06-23 Completed University of 00:00:00 [facility] Hep B, Adol or Pedi 2002-06-23 Completed Unive rsity of Dosage 00:00:00 [facility] HIB 4 Dose Schedule 2002-06-23 Completed Unive rsity of 00:00:00 [facility] MMR 2002-06-23 Completed University of 00:00:00 [facility] Pneumococcal 7 2002-06-23 Completed University of Conjugate, PCV7 00:00:00 [facility] ical (Prevnar7) Branch Varicella 2002-06-23 Completed University of (varivax)(chicken 00:00:00 [place] [facility] pox) [facility] IPV 2002-06-23 Completed University of 00:00:00 [facility] Hep B, Adol or Pedi 2001-07-27 Completed Unive rsity of Dosage 00:00:00 [facility] Hep B, Adol or Pedi 2001-07-27 Completed Unive rsity of Dosage 00:00:00 [facility] Hep B, Adol or Pedi 2001-07-27 Completed Unive rsity of Dosage 00:00:00 [facility] Hep B, Adol or Pedi 2001-07-27 Completed Unive rsity of Dosage 00:00:00 [facility] Hep B, Adol or Pedi 2001-07-27 Completed Unive rsity of Dosage 00:00:00 [facility] Hep B, Adol or Pedi 2001-07-27 Completed Unive rsity of Dosage 00:00:00 [facility] Hep B, Adol or Pedi 2001-07-27 Completed Unive rsity of Dosage 00:00:00 [facility] Varicella 2001-06-23 Completed University of (varivax)(chicken 00:00:00 [...] 1999 Completed Unive rsity of Dosage 00:00:00 [facility] Hep B, Adol or Pedi 1999 Completed Unive rsity of Dosage 00:00:00 [facility] Hep B, Adol or Pedi 1999 Completed Unive rsity of Dosage 00:00:00 [facility] Hep B, Adol or Pedi 1999 Completed Unive rsity of Dosage 00:00:00 [facility] Hep B, Adol or Pedi 1999 Completed Unive rsity of Dosage 00:00:00 [facility] Hep B, Adol or Pedi 1999 Completed Unive rsity of Dosage 00:00:00 [facility] Hep B, Adol or Pedi 1999 Completed Unive rsity of Dosage 00:00:00 [facility] Vital Signs Vital Name Observation Time Observation Value Comments Source Systolic blood 2022-07-11 21:46:00 132 mm[Hg] Univer sity of pressure [facility] Diastolic blood 2022-07-11 21:46:00 97 mm[Hg] Unive rsity of pressure [facility] Heart rate 2022-07-11 21:46:00 89 /min [facility] Body temperature 2022-07-11 21:46:00 37 Marycruz [facility] 2022-07-11 21:46:00 22 /min [facility] Body height 2022-07-11 21:46:00 157.5 cm [facility] Body weight 2022-07-11 21:46:00 53.071 kg [facility] BMI 2022-07-11 21:46:00 21.40 kg/m2 [facility] Oxygen saturation in 2022-07-11 21:46:00 100 /min [facility] Arterial blood by [facility] Pulse oximetry Branch Systolic blood 2022-06-12 14:58:00 97 mm[Hg] Univer sity of pressure [facility] Diastolic blood 2022-06-12 14:58:00 61 mm[Hg] Unive rsity of pressure [facility] Heart rate 2022-06-12 14:58:00 86 /min [facility] Body temperature 2022-06-12 14:58:00 36.67 Marycruz Univ ersity of [facility] Respiratory rate 2022-06-12 14:58:00 18 /min Univ ersity of [facility] Body height 2022-06-12 14:58:00 157.5 cm Universi ty of [facility] Body weight 2022-06-12 14:58:00 55.52 kg Universi ty of [facility] BMI 2022-06-12 14:58:00 22.39 kg/m2 Universi ty of [facility] Oxygen saturation in 2022-06-12 14:58:00 98 /min University of Arterial blood by [facility] Pulse oximetry Branch Systolic blood 2022-06-06 15:56:00 121 mm[Hg] Univer sity of pressure [facility] Diastolic blood 2022-06-06 15:56:00 78 mm[Hg] Unive rsity of pressure [facility] Heart rate 2022-06-06 15:56:00 85 /min Universi ty of [facility] Body temperature 2022-06-06 15:56:00 36.11 Marycruz Univ ersity of [facility] Respiratory rate 2022-06-06 15:56:00 18 /min Univ ersity of [facility] Body height 2022-06-06 15:56:00 157.5 cm Universi ty of [facility] Body weight 2022-06-06 15:56:00 54.704 kg Universi ty of [facility] BMI 2022-06-06 15:56:00 22.06 kg/m2 [facility] ty [facility] Systolic blood 2022-05-23 15:33:00 126 mm[Hg] Univer sity of pressure [facility] Diastolic blood 2022-05-23 15:33:00 89 mm[Hg] Unive rsity of pressure [facility] Heart rate 2022-05-23 15:33:00 92 /min Universi ty of [facility] Body temperature 2022-05-23 15:33:00 36.17 Marycruz Univ ersity of [facility] Respiratory rate 2022-05-23 15:33:00 18 /min Univ ersity of [facility] Body height 2022-05-23 15:33:00 157.5 cm Universi ty of [facility] Body weight 2022-05-23 15:33:00 57.153 kg [facility]i ty [facility] [place] [facility] BMI 2022-05-23 15:33:00 23.05 kg/m2 [facility] [place] [facility] Oxygen saturation in 2022-05-23 15:33:00 98 /min r/a University of Arterial blood by [place] [facility] Pulse oximetry Branch Systolic blood 2022-05-16 15:18:00 132 mm[Hg] Univer sity of pressure [facility] Diastolic blood 2022-05-16 15:18:00 78 mm[Hg] Unive rsity of pressure [facility] Heart rate 2022-05-16 15:18:00 83 /min Universi ty of [facility] Body temperature 2022-05-16 15:18:00 35.94 Marycruz Univ ersity of [facility] Respiratory rate 2022-05-16 15:18:00 18 /min Univ ersity of [facility] Body height 2022-05-16 15:18:00 157.5 cm Universi ty [facility] [place] [facility] Body weight 2022-05-16 15:18:00 58.015 kg [facility]i ty [facility] [place] [facility] BMI 2022-05-16 15:18:00 23.39 kg/m2 [facility] [place] [facility] Systolic blood 2022-05-12 15:38:00 124 mm[Hg] Univer sity of pressure [facility] Diastolic blood 2022-05-12 15:38:00 86 mm[Hg] Unive rsity of pressure [facility] Heart rate 2022-05-12 15:38:00 72 /min [facility]i ty [facility] [place] [facility] Respiratory rate 2022-05-12 15:38:00 18 /min Univ ersity of [facility] Body height 2022-05-12 15:38:00 157.5 cm [facility] [place] [facility] Body weight 2022-05-12 15:38:00 58.06 kg [facility] [place] [facility] BMI 2022-05-12 15:38:00 23.41 kg/m2 [facility] [place] [facility] Oxygen saturation in 2022-05-12 15:38:00 97 /min University of Arterial blood by [place] [facility] Pulse oximetry Branch Heart rate 2022-05-06 14:11:00 88 /min [facility] [place] [facility] Body temperature 2022-05-06 14:11:00 36.78 Marycruz Univ ersity of [facility] Respiratory rate 2022-05-06 14:11:00 18 /min Univ ersity of [facility] Body height 2022-05-06 14:11:00 157.5 cm [facility]i ty [facility] Body weight 2022-05-06 14:11:00 58.151 kg [facility]i ty [facility] [place] [facility] BMI 2022-05-06 14:11:00 23.45 kg/m2 [facility] ty [facility] [place] [facility] Systolic blood 2022-05-06 14:11:00 136 mm[Hg] Univer sity of pressure [facility] Diastolic blood 2022-05-06 14:11:00 84 mm[Hg] Unive rsity of pressure [facility] Systolic blood 2022-05-02 15:48:00 130 mm[Hg] manual Univer sity of pressure [facility] Diastolic blood 2022-05-02 15:48:00 92 mm[Hg] manual Unive rsity of pressure [facility] Heart rate 2022-05-02 15:40:00 86 /min Universi ty of [facility] Body temperature 2022-05-02 15:40:00 36.72 Marycruz Univ ersity of [facility] Respiratory rate 2022-05-02 15:40:00 20 /min Univ ersity of [facility] Body height 2022-05-02 15:40:00 157.5 cm [facility]i ty [facility] Body weight 2022-05-02 15:40:00 59.33 kg [facility]i ty [facility] [place] [facility] BMI 2022-05-02 15:40:00 23.92 kg/m2 [...] 2022-04-27 02:33:00 18 /min Univ ersity of [facility] Oxygen saturation in 2022-04-27 02:33:00 95 /min University of Arterial blood by [facility] Pulse oximetry Branch Body weight 2022-04-24 00:00:00 67.132 kg Universi ty of [facility] BMI 2022-04-24 00:00:00 27.07 kg/m2 Universi ty of [facility] Heart rate 2022-04-25 08:30:00 120 /min Universi ty of [facility] Oxygen saturation in 2022-04-25 08:30:00 100 /min University of Arterial blood by [facility] Pulse oximetry Branch Systolic blood 2022-04-25 08:20:00 128 mm[Hg] Univer sity of pressure [facility] Diastolic blood 2022-04-25 08:20:00 81 mm[Hg] Unive rsity of [facility] [place] Body temperature 2022-04-25 08:00:00 37.28 Marycruz Univ ersity of [facility] Respiratory rate 2022-04-25 08:00:00 16 /min Univ ersity of [facility] Body weight 2022-04-24 00:00:00 67.132 kg Universi ty of [facility] BMI 2022-04-24 00:00:00 27.07 kg/m2 [facility] ty [facility] Systolic blood 2022-04-23 14:03:00 134 mm[Hg] Univer sity of pressure [facility] Diastolic blood 2022-04-23 14:03:00 86 mm[Hg] Unive rsity of [facility] Heart rate 2022-04-23 14:00:00 72 /min Universi ty of [facility] Body temperature 2022-04-23 14:00:00 36.72 Marycruz Univ ersity of [facility] Respiratory rate 2022-04-23 14:00:00 20 /min Univ ersity of [facility] Body height 2022-04-23 14:00:00 157.5 cm [facility]i ty [facility] Body weight 2022-04-23 14:00:00 66.134 kg [facility]i ty [facility] BMI 2022-04-23 14:00:00 26.67 kg/m2 [facility] Systolic blood 2022-04-16 19:05:00 136 mm[Hg] Univer sity of pressure [facility] Diastolic blood 2022-04-16 19:05:00 89 mm[Hg] Unive rsity of pressure [facility] Heart rate 2022-04-16 19:05:00 75 /min Universi ty of [facility] Body temperature 2022-04-16 19:05:00 36.56 Marycruz Univ ersity of [facility] Respiratory rate 2022-04-16 19:05:00 17 /min Univ ersity of [facility] Body height 2022-04-16 19:05:00 154.9 cm [facility] Body weight 2022-04-16 19:05:00 65.953 kg [facility] [place] [facility] BMI 2022-04-16 19:05:00 27.47 kg/m2 [facility] ty of [facility] Systolic blood 2022-04-08 14:53:00 132 mm[Hg] Univer sity of pressure [facility] Diastolic blood 2022-04-08 14:53:00 82 mm[Hg] Unive rsity of pressure [facility] Heart rate 2022-04-08 14:53:00 82 /min [facility] ty [facility] [place] [facility] Body temperature 2022-04-08 14:53:00 36.11 Marycruz Univ ersity of [facility] Respiratory rate 2022-04-08 14:53:00 18 /min Univ ersity of [facility] Body height 2022-04-08 14:53:00 154.9 [...] 2022-03-25 15:22:00 18 /min Univ ersity of [facility] Body height 2022-03-25 15:22:00 157.5 cm Universi ty [facility] Body weight 2022-03-25 15:22:00 63.413 kg [facility] BMI 2022-03-25 15:22:00 25.57 kg/m2 [facility] Systolic blood 2022-03-13 19:20:00 129 mm[Hg] Univer sity of pressure [facility] Diastolic blood 2022-03-13 19:20:00 82 mm[Hg] Unive rsity of pressure [facility] Heart rate 2022-03-13 19:20:00 80 /min Universi ty of [facility] Body temperature 2022-03-13 19:20:00 36.72 Marycruz Univ ersity of [facility] Respiratory rate 2022-03-13 19:20:00 18 /min Univ ersity of [facility] Body height 2022-03-13 19:20:00 157.5 cm [facility]i ty [facility] Body weight 2022-03-13 19:20:00 63.617 kg [facility] ty [facility] BMI 2022-03-13 19:20:00 25.65 kg/m2 [facility] Systolic blood 2022-02-27 14:27:00 118 mm[Hg] Univer sity of pressure [facility] Diastolic blood 2022-02-27 14:27:00 64 mm[Hg] Unive rsity of pressure [facility] Heart rate 2022-02-27 14:27:00 67 /min [facility]i ty of [facility] Body temperature 2022-02-27 14:27:00 36.56 Marycruz Univ ersity of [facility] Respiratory rate 2022-02-27 14:27:00 18 /min Univ ersity of [facility] Body height 2022-02-27 14:27:00 157.5 cm [facility] Body weight 2022-02-27 14:27:00 62.738 kg [facility] BMI 2022-02-27 14:27:00 25.30 kg/m2 [facility] Systolic blood 2022-02-14 20:24:00 113 mm[Hg] Univer sity of pressure [facility] Diastolic blood 2022-02-14 20:24:00 71 [...] 2022-02-14 20:24:00 25.50 kg/m2 [facility] ty [facility] Systolic blood 2022-02-06 01:21:00 112 mm[Hg] Univer sity of pressure [facility] Diastolic blood 2022-02-06 01:21:00 66 mm[Hg] Unive rsity of pressure [facility] Heart rate 2022-02-06 01:21:00 70 /min [facility]i ty [facility] Body temperature 2022-02-06 01:21:00 36.89 Marycruz Univ ersity of [facility] Respiratory rate 2022-02-06 01:21:00 18 /min Univ ersity of [facility] Oxygen saturation in 2022-02-06 01:21:00 100 /min University of Arterial blood by [place] [facility] Pulse oximetry Branch Body height 2022-02-05 [...] 2022-02-02 23:26:00 18 /min Univ ersity of [facility] Oxygen saturation in 2022-02-02 23:15:00 97 /min University of Arterial blood by [place] [facility] Pulse oximetry Branch Systolic blood 2022-02-02 22:45:00 122 mm[Hg] Univer sity of pressure [facility] Diastolic blood 2022-02-02 22:45:00 80 mm[Hg] Unive rsity of pressure [facility] Body height 2022-02-02 22:30:00 157.5 cm [facility]i ty [facility] Body weight 2022-02-02 22:30:00 62.143 kg [facility]i ty of [facility] BMI 2022-02-02 22:30:00 25.06 kg/m2 [facility] [place] [facility] Systolic blood 2022-01-31 15:44:00 117 mm[Hg] Univer sity of pressure [facility] Diastolic blood 2022-01-31 15:44:00 68 mm[Hg] Unive rsity of pressure [facility] Heart rate 2022-01-31 15:44:00 73 /min Universi ty of [facility] Body temperature 2022-01-31 15:44:00 36.89 Marycruz Univ ersity of [facility] Respiratory rate 2022-01-31 15:44:00 18 /min Univ ersity of [facility] Body height 2022-01-31 15:44:00 154.9 cm [facility]i ty [facility] Body weight 2022-01-31 15:44:00 61.434 kg [facility] BMI 2022-01-31 15:44:00 25.59 kg/m2 [facility] Systolic blood 2022-01-02 17:12:00 100 mm[Hg] Univer sity of pressure [facility] Diastolic blood 2022-01-02 17:12:00 66 mm[Hg] Unive rsity of pressure [facility] Heart rate 2022-01-02 17:12:00 84 /min [facility]i ty [facility] Body temperature 2022-01-02 17:12:00 36.72 Marycruz Univ ersity of [facility] Respiratory rate 2022-01-02 17:12:00 20 /min Univ ersity of [facility] Body height 2022-01-02 17:12:00 154.9 cm [facility]i ty [facility] Body weight 2022-01-02 17:12:00 59.194 kg [facility]i ty [facility] BMI 2022-01-02 17:12:00 24.66 kg/m2 [facility] Systolic blood 2021-12-11 01:13:00 111 mm[Hg] Univer sity of pressure [facility] Diastolic blood 2021-12-11 01:13:00 67 mm[Hg] Unive rsity of pressure [facility] Heart rate 2021-12-11 01:13:00 88 /min [facility]i ty of [facility] Body temperature 2021-12-11 01:13:00 36.61 Marycruz Univ ersity of [facility] Respiratory rate 2021-12-11 01:13:00 18 /min Univ ersity of [facility] Body height 2021-12-11 01:13:00 154.9 cm [facility]i ty [facility] Body weight 2021-12-11 01:13:00 58.514 kg [facility] ty [facility] BMI 2021-12-11 01:13:00 24.37 kg/m2 [facility] ty [facility] Oxygen saturation in 2021-12-11 01:13:00 100 /min University of Arterial blood by [facility] Pulse oximetry Branch Systolic blood 2021-12-02 16:16:00 100 mm[Hg] Univer sity of pressure [facility] Diastolic blood 2021-12-02 16:16:00 66 mm[Hg] Unive rsity of pressure [facility] Heart rate 2021-12-02 16:16:00 67 /min [facility]i ty of [facility] Body temperature 2021-12-02 16:16:00 36.78 Marycruz Univ ersity of [facility] Respiratory rate 2021-12-02 16:16:00 18 /min Univ ersity of [facility] Body height 2021-12-02 16:16:00 157.5 cm [facility] ty [facility] Body weight 2021-12-02 16:16:00 56.87 kg [facility] ty [facility] BMI 2021-12-02 16:16:00 22.93 kg/m2 [facility] Systolic blood 2021-11-04 18:16:00 119 mm[Hg] Univer sity of pressure [facility] Diastolic blood 2021-11-04 18:16:00 67 mm[Hg] Unive rsity of pressure [facility] Heart rate 2021-11-04 18:16:00 82 /min [facility]i ty of [facility] Body temperature 2021-11-04 18:16:00 36.89 Marycruz [facility] [place] Respiratory rate 2021-11-04 18:16:00 18 /min [facility] Body height 2021-11-04 18:16:00 157.5 cm [facility] ty of [facility] Body weight 2021-11-04 18:16:00 56.246 kg [facility] ty of [facility] BMI 2021-11-04 18:16:00 22.68 kg/m2 Universi ty of [facility] Systolic blood 2021-10-24 20:30:00 105 mm[Hg] Univer sity of pressure [facility] Diastolic blood 2021-10-24 20:30:00 69 mm[Hg] Unive [facility] Heart rate 2021-10-24 20:30:00 81 /min Universi ty of [facility] Body temperature 2021-10-24 20:30:00 37.22 Marycruz [facility] Respiratory rate 2021-10-24 20:30:00 18 /min [facility] [place] Body height 2021-10-24 20:30:00 157.5 cm Universi ty of [facility] Body weight 2021-10-24 20:30:00 55.747 kg Universi ty [facility] BMI 2021-10-24 20:30:00 22.48 kg/m2 Universi ty [facility] Procedures Procedure Date / Time Performing Clinician Source Performed CONSENT/REFUSAL FOR 2022-07-11 21:42:17 Doctor Unassigned, [facility] DIAGNOSIS AND TREATMENT [facility] GARDASIL 9 (HPV 9V) 2022-06-06 16:20:[address] [facility] PATIENT FINANCIAL 2022-06-06 15:35:51 Doctor Unassigned, [facility] POLICY [facility] RHEUMATOID FACTOR 2022-05-23 16:32:00 [place] [facility] C-REACTIVE PROTEIN 2022-05-23 16:32:[address] [facility] C4 COMPLEMENT 2022-05-23 16:32:00 [facility] ANTI-NUCLEAR ANTIBODY 2022-05-23 16:32[facility]00 [facility] HCV ANTIBODY 2022-05-23 16:32:00 [facility] VITAMIN D, 25-OH 2022-05-23 16:32:00 [facility] ANTI-SSA(RO) 2022-05-23 16:32:00 [facility] ANTI-DOUBLE STRANDED DNA 2022-05-23 16:32:00 [facility] ANTI-NUCLEAR 2022-05-23 16:32:00 [facility] ANTIBODY-PATHOLOGIST [facility] INTERPRETATION COMP. METABOLIC PANEL 2022-05-12 16:03:00 Sheela Jalloh [facility] ([id number]) [facility] CBC WITH DIFF 2022-05-12 16:03:00 Augustus Jallohssica [facility] CBC WITH DIFF 2022-04-26 09:49:00 Jenusaitis, [facility] CBC WITH DIFF 2022-04-26 09:49:00 Jenusajose [facility] VENOUS CORD GAS 2022-04-25 09:46:00 [place] [facility] VENOUS CORD GAS 2022-04-25 09:46:00 [place] [facility] SECTION 2022-04-25 08:35:00 Emilee Villarreal [facility] Ikuvbogie [facility] CENTRAL NEURAXIAL BLOCK 2022-04-24 17:48:00 Jessica [facility] SGOT (ASPARTATE AMINO 2022-04-24 05:40:00 Ken [facility] TRANSFER) [facility] CREATININE 2022-04-24 05:40:00 Ken [facility] ALANINE AMINO 2022-04-24 05:40:00 Ken, [facility] TRANSFERASE([facility] Medical Branch LACTATE DEHYDROGENASE 2022-04-24 05:40:00 Ken, [facility] URIC ACID 2022-04-24 05:40:00 [facility] 2022-04-24 05:40:00 Ken, [facility] PROTEIN CREAT RATIO URINE 2022-04-24 05:40:00 Ken, [place] [facility] SGOT (ASPARTATE AMINO 2022-04-24 05:40:00 Ken, [facility] TRANSFER) Medical Branch CREATININE 2022-04-24 05:40:00 Ken, [facility] ALANINE AMINO 2022-04-24 05:40:00 Ken, [facility] TRANSFERASE(PT Medical Branch LACTATE DEHYDROGENASE 2022-04-24 05:40:00 Ken, [facility] URIC ACID 2022-04-24 05:40:00 Ken, [facility] URINALYSIS 2022-04-24 05:40:00 Ken, [facility] PROTEIN CREAT RATIO URINE 2022-04-24 05:40:00 Ken, [place] [facility] CBC WITH DIFF 2022-04-24 02:47:00 Blayne Beckham [facility] HEPATITIS B SURFACE 2022-04-24 02:47:00 Blayne Beckham [facility] ANTIGEN [facility] HIV 1/2 AG-AB WITH REFLEX 2022-04-24 02:47:00 Blayne Beckham [facility] SYPHILIS IGG/IGM 2022-04-24 02:47:[address] [facility] CBC WITH DIFF 2022-04-24 02:47:00 Blayne Beckham [facility] HEPATITIS B SURFACE 2022-04-24 02:47:00 Blayne Beckham [facility] ANTIGEN [facility] HIV 1/2 AG-AB WITH REFLEX 2022-04-24 02:47:00 Blayne Beckham [facility] SYPHILIS IGG/IGM 2022-04-24 02:47:00 [facility] HB ABO GROUPING 2022-04-24 02:43:00 [place] [facility] RHO (D) IMMUNE GLOBULIN 2022-04-24 02:43:00 Jenusaitis, [facility] HB ABO GROUPING 2022-04-24 02:43:00 [place] [facility] RHO (D) IMMUNE GLOBULIN 2022-04-24 02:43:00 Jenusaitis, [facility] POCT URINALYSIS 2022-04-23 14:02:00 Lian Simms [facility] POCT URINALYSIS 2022-04-16 00:00:00 Lian Simms [facility] POCT URINALYSIS 2022-04-08 14:56:00 Lian Simms [facility] POCT URINALYSIS 2022-03-25 00:00:00 Lian Simms [facility] POCT URINALYSIS 2022-03-13 19:22:00 Lian Simms [facility] 3 HR GLUCOSE TOLERANCE 2022-02-27 17:23:00 Astrid Barnett [facility] 2 HR GLUCOSE TOLERANCE 2022-02-27 16:23:00 Astrid Barnett [facility] 1 HR GLUCOSE TOLERANCE 2022-02-27 15:23:00 Astrid Barnett U [facility] POCT URINALYSIS 2022-02-27 14:29:00 Lian Simms [facility] GLUCOSE FASTING 2022-02-27 14:20:00 Astrid [facility]ett [facility] 3 HR GLUCOSE TOLERANCE 2022-02-27 14:20:00 [facility] HIV 1/2 AG-AB WITH REFLEX 2022-02-27 14:20:[address] [facility] GALV ONLY - SYPHILIS 2022-02-27 14:20:00 Lian Simms Un [facility] IGG/IGM [facility] POCT URINALYSIS 2022-02-14 20:25:00 Lian Simms [facility] AMYLASE 2022-02-06 01:15:00 Madhuri Orozco Manzanita o [facility] LIPASE 2022-02-06 01:15:00 Madhuri Orozco [facility] COMP. METABOLIC PANEL 2022-02-06 01:15:00 Madhuri Orozco [facility] ([id number]) [facility] CBC WITH DIFF 2022-02-06 01:15:00 Madhuri Orozco [facility] US ABDOMEN LIMITED 2022-02-06 00:52:51 Madhuri Orozco [facility] CONSENT/REFUSAL FOR 2022-02-05 21:54:06 Doctor Unassfaye, [facility] DIAGNOSIS AND TREATMENT [facility] ASSIGNMENT OF BENEFITS 2022-02-02 21:50:55 Doctor Unassigned, [facility] CONSENT/REFUSAL FOR 2022-02-02 21:49:43 Doctor Leonard, [facility] DIAGNOSIS AND TREATMENT [facility] GLUCOSE 1 HOUR POST 2022-01-31 16:42:00 Astrid Barnett [facility] DIFF 2022-01-31 16:42:00 Astrid [facility]ett [facility] TDAP VACCINE, >11 YRS, IM 2022-01-31 15:55:[address] [facility] POCT URINALYSIS 2022-01-31 15:44:00 Lian Simms [facility] POCT URINALYSIS 2022-01-02 00:00:00 Lian Simms [facility] URINALYSIS 2021-12-11 01:30:00 Lizett Wei [facility] CONSENT/REFUSAL FOR 2021-12-11 00:26:08 Doctor Unassigned, Leon [facility] DIAGNOSIS AND TREATMENT [facility] POCT URINALYSIS 2021-12-02 16:23:00 Lian Simms [facility] POCT URINALYSIS 2021-11-04 18:17:00 Lian Simms [facility] FIRST TRIMESTER TRISOMY 2021-10-25 20:33:00 Rosalia Purdy [facility] POCT URINALYSIS 2021-10-24 21:13:00 Lian Simms [facility] Encounters Start End Encounter Admission Attending Care Care Encounter Source Date/Time Date/Time Type Type Clinicians Facility Department ID 2022-02-02 Outpatient X [facility] ROS[facility]URA [id number] Univers 18:33:42 [facility] 2022-09-11 2022-09-11 [facility] [id number] Univers 10:00[facility]00 [facility]:00[facility]-07-11 2022-07-[address] [facility] [id number] Univers 16:50:00 17:01:00 JADE [facility] 2022-07-11 2022-07-[address] [facility] 1.2.840.114 [id number] Univers 16:50:00 17:01:00 Jade ZIEGLER 350.1.13.10 ity [facility] [place] [id number] [facility] [address] 2022-06-12 2022-06-12 Outpatient Abhijeet JALLOH [facility] [id number] Univers 10:00:00 10:12:19 SHEELA shanel [facility] 2022-06-12 2022-06-[address] [facility] 1.2.840.114 [id number] Univers 10:00:00 10:12:19 Visit Sheela ZIEGLER 350.1.13.10 i ty [facility] [place].2.7.2.[place] [phone] La dical NAL [address] [place] [address] 2022-06-06 2022-06-06 Outpatient R AKINSIPE, [facility] [id number] Univers 11:00:00 11:34:30 LIAN astorga f [facility] 2022-06-06 2022-06-[address] [facility] 1.2.465.009 [id number] Univers 11:00:00 11:34:30 Visit Lian Brizuela STOCK WORKER 350.1.13.10 ity of [facility] 4.2.7.2.686 Jose as MATERNAL [phone] [facility] ical & CHILD [address] [place] [address] 2022-06-06 2022-06-06 Orders Doctor LEROY 1.2.840.114 [id number] Univers 00:00:00 00:00:00 Only Unassigned, GENE 350.1.13.10 ity of [place] [facility] 4.2.7.2.686 Jose as [phone] [facility] [address] 2022-05-23 2022-05-23 Funeral Service Practitioner/Embalmer Pcp-Lab [facility] 1.2.840.114 [id number] Univers 13:45:00 14:00:00 Visit Massimo, Analia Kamryn PRIMARY 350.1.13. 10 ity of [place] [id number] La dical [address] 2022-05-23 2022-05-23 Outpatient R MASSIMO, [facility] [id number] Univers 10:30:00 11:27:53 ANALIA ity of [facility] 2022-05-23 2022-05-23 Office Thomas Figueroa [facility] 1.2. 840.114 [id number] Univers 10:30:00 11:27:53 Visit Massimo, Analia Kamryn PRIMARY 350.1.13. 10 ity of C[place] 4[place]2.[place].2.[place] [id number] La dical [address] 2022-05-16 2022-05-16 Outpatient R AKINSIPE, [facility] [id number] Univers 10:00:00 10:33:34 LIAN bentley [facility] 2022-05-16 2022-05-[address] [facility] 1.2.972.362 [id number] Univers 10:00:00 10:33:34 Lian Brizuela STOCK WORKER 350.1.13.10 ity of Visit [facility] 4.2.7.2.686 Jose as MATERNAL [id number] [facility] & [address] 2022-05-12 2022-05-12 Funeral Service Practitioner/Embalmer 2, Adc Lab [facility] 1.2.840.114 [id number] Univers 13:30:00 13:45:00 Visit Sheela Jalloh 350.1.13.10 ity of [place] 4.2.7.2.[place] [phone] La dical NAL [address] [facility] 2022-05-12 2022-05-12 Outpatient R SHUBHAM [facility] [id number] Univers 10:00:00 10:58:05 SHEELA itshanel [facility] 2022-05-12 2022-05-12 Office Shubham [facility] 1.2.840.114 [id number] Univers 10:00:00 10:58:05 Visit Sheela ZIEGLER 350.1.13.10 i ty of [place] 4.2.7.2.[place] [phone] La dical NAL [address] [facility] 2022-05-06 2022-05-06 Nurse Visit, Estradachp Nurse [facility] 1.2 .840.114 [id number] [facility] 09:00:00 09:32:21 Visit Lian Simms STOCK WORKER 350.1.13. 10 ity of [facility] 4.2.7.2.686 Jose as MATERNAL [phone] [facility] & CHILD [address] [place] [address] 2022-05-06 2022-05-06 Outpatient Abhijeet SIMMS [facility] [id number] Univers 09:00:00 09:00:00 LIAN bentley [facility] 2022-05-02 2022-05-02 Outpatient Abhijeet SIMMS [facility] [id number] Univers 09:30:00 09:59:05 LIAN bentley [facility] 2022-05-02 2022-05-02 Nurse Visit, InocenteRmchp Nurse [facility] 1.2 .840.114 [id number] Univers 09:30:00 09:59:05 Visit Lian Simms STOCK WORKER 350.1.13. 10 ity of [facility] 4.2.7.2.686 Jose as MATERNAL [phone] [facility] CHILD [address] [place] [address] 2022-04-23 2022-04-26 Hospital GeremiasLEROY 1.2.840.114 [id number] Univers 18:02:00 22:17:00 Encounter Chip MILLS 350.1.13.10 ity of [facility] 4.2.7.2.686 Jose as [phone] [facility] [address] 2022-04-26 2022-04-26 Telephone Demi [facility] 1.2.840.114 [id number] Univers 00:00:00 00:00:00 Lian Brizuela STOCK WORKER 350.1.13.10 ity [facility] 4.2.7.2.686 Jose as MATERNAL [phone] [facility] ical & CHILD [address] [place] [address] 2022-04-25 2022-04-25 Surgery LEROY Villarreal 1.2.840.114 [id number] Univers 02:10:00 03:52:00 Chaseshanel MILLS 350.1.13.10 it y [facility] 4.2.7.2.686 [place] [id number] [facility] [address] 2022-04-24 2022-04-24 Anesthesia Daquan Bowman 1.2.8 40.114 [id number] Univers 11:17:00 11:17:00 Event Ronen Presley 350.1.13.10 ity of [facility] 4.2.7.2.686 Jose as [phone] [facility] [address] 2022-04-23 2022-04-23 Outpatient R DEMI [facility] [id number] Univers 08:00:00 08:21:15 LIAN lam o f [facility] 2022-04-23 2022-04-23 Routine Demi [facility] 1.2.157.768 [id number] Univers 08:00:00 08:21:15 Lian C STOCK WORKER 350.1.13.10 ity of Visit REGIONAL 4.2.7.2.686 Jose as MATERNAL [id number] [facility] & [address] 2022-04-23 2022-04-23 [facility] [id number] Univers 08:00:00 08:21:15 LIAN ity o [facility] 2022-04-22 2022-04-22 Refill [facility] 1.2.597.144 [id number] Univers 00:00:00 00:00:00 Lian C STOCK WORKER 350.1.13.10 ity of REGIONAL 4.2.7.2.686 Jose as MATERNAL [phone] [address] 2022-04-16 2022-04-16 [facility] [id number] [facility] 13:15:00 13:35:23 LIAN ity o [facility] 2022-04-16 2022-04-16 Routine [facility], [facility] 1.2.157.531 [id number] Univers 13:15:00 13:35:23 Lian C STOCK WORKER 350.1.13.10 ity of Visit REGIONAL 4.2.7.2.686 Jose as MATERNAL [phone] [facility] & [address] 2022-04-09 2022-04-09 Telephone [facility] 1.2.840.114 [id number] Univers 00:00:00 00:00:00 Lian C STOCK WORKER 350.1.13.10 ity of REGIONAL 4.2.7.2.686 Jose as MATERNAL [phone] [address] 2022-04-08 2022-04-08 Outpatient R AKINSIPE, [facility] [id number] Univers 09:00:00 09:53:37 LIAN ity o [facility] 2022-04-08 2022-04-08 Routine [facility] 1.2.292.521 [id number] Univers 09:00:00 09:53:37 Lian C STOCK WORKER 350.1.13.10 ity of Visit REGIONAL 4.2.7.2.686 Jose as MATERNAL [phone] Med ical & CHILD [address] [place] [address] 2022-03-27 2022-03-27 Outpatient [facility] [id number] Univers 14:45:00 14:45:00 LIAN ity o f [facility] 2022-03-27 2022-03-27 Telephone [facility] 1.2.840.114 [id number] Univers 00:00:00 00:00:00 Lian C STOCK WORKER 350.1.13.10 ity of REGIONAL 4.2.7.2.686 Jose as MATERNAL [phone] [facility] ical & CHILD [address] [place] [address] 2022-03-27 2022-03-27 Telephone [facility] 1.2.840.114 [id number] Univers 00:00:00 00:00:00 Lian C STOCK WORKER 350.1.13.10 ity of REGIONAL 4.2.7.2.686 Jose as MATERNAL [phone] [facility] ical & CHILD [address] [place] [address] 2022-03-25 2022-03-25 [facility] [id number] Univers 09:00:00 09:39:39 LIAN ity o f [facility] 2022-03-25 2022-03-25 Routine [facility] 1.2.774.769 [id number] Univers 09:00:00 09:39:39 Lian C STOCK WORKER 350.1.13.10 ity of Visit REGIONAL 4.2.7.2.686 Jose as MATERNAL [phone] [facility] ical & CHILD [address] [place] [address] 2022-03-25 2022-03-25 Telephone [facility] 12.840.114 10 [id number] Univers 00:00:00 00:00:00 Lian C STOCK WORKER 350.1.13.10 ity of REGIONAL 4.2.7.2.686 Jose as MATERNAL [id number] Med ical & CHILD [address] [place] [address] 2022-03-24 2022-03-24 Telephone Demi, [facility] 1.2.840.114 [id number] Univers 00:00:00 00:00:00 Lian C STOCK WORKER 350.1.13.10 ity of [facility] 4.2.7.2.686 Jose as MATERNAL [phone] [facility] & CHILD [address] [place] [address] 2022-03-17 2022-03-17 Nurse LEROY Fowler 1.2.840.114 [id number] Univers 00:00:00 00:00:00 Triage Jose Cruz MILLS 350.1.13.10 ity of [facility] 4.2.7.2.686 Jose as [id number] [address] 2022-03-13 2022-03-13 Outpatient R AKINSIPE, [facility] [id number] Univers 13:15:00 13:43:58 LIAN ity o f [facility] 2022-03-13 2022-03-13 [facility]ine [facility], [facility] 1.2.889.559 [id number] Univers 13:15:00 13:43:58 Lian C STOCK WORKER 350.1.13.10 ity of Visit REGIONAL 4.2.7.2.686 Jose as MATERNAL [phone] [address] 2022-02-27 2022-02-27 Outpatient R AKINSIPE, [facility] [id number] Univers 08:00:00 08:59:40 LIAN ity o f [facility] 2022-02-27 2022-02-27 Routine Akinpe, [facility] 1.2.981.385 [id number] Univers 08:00:00 08:59:40 Lian C STOCK WORKER 350.1.13.10 ity of Visit REGIONAL 4.2.7.2.686 Jose as MATERNAL [phone] [facility] & [address] 2022-02-19 2022-02-19 Telephone Provider, [facility] 1.2.840.114 [id number] Univers 00:00:00 00:00:00 Ang-Rmchp STOCK WORKER 350.1.13.10 ity of Temp [facility] 4.2.7.2.686 Jose as MATERNAL [phone] [facility] & CHILD [address] [place] [address] 2022-02-14 2022-02-14 Outpatient R DEMI [facility] [id number] Univers 13:45:00 14:46:03 LIAN bentley [facility] 2022-02-14 2022-02-14 Routine Provider, Donte [facility] 1 .2.840.114 [id number] Univers 13:45:00 14:46:03 Lian Simms STOCK WORKER 350.1.13 .10 ity of Visit [facility] 4.2.7.2.686 Jose as MATERNAL [phone] [facility] & [address] 2022-02-14 2022-02-14 Outpatient R DEMI [facility] [id number] Univers 09:45:00 09:45:00 LIAN astorga [facility] 2022-02-07 2022-02-07 [facility] 1.2.840.114 [id number] Univers 00:00:00 00:00:00 Lian Brizuela STOCK WORKER 350.1.13.10 ity of [facility] 4.2.7.2.686 Jose as MATERNAL [phone] [facility] & [address] 2022-02-05 2022-02-05 Outpatient X MADHURI OROZCO [facility] [id number] Univers 16:03:00 21:25:00 ity of [facility] 2022-02-05 2022-02-05 Emergency Madhuri Orozco [facility] 1.2.840.114 [id number] Univers 16:03:00 21:25:00 [facility] 350.1.13.10 i ty [facility] 4.2.7.2.686 [facility] [id number] [address] 2022-02-05 2022-02-[address] [facility] 1.2.840.114 [id number] Univers 00:00:00 00:00:00 Lian C STOCK WORKER 350.1.13.10 ity of REGIONAL 4.2.7.2.686 Jose as MATERNAL [id number] [facility] & CHILD [address] [place] [address] 2022-02-04 2022-02-[address] [facility] 1.2.840.114 [id number] Univers 00:00:00 00:00:00 Lian C STOCK WORKER 350.1.13.10 ity of REGIONAL 4.2.7.2.686 Jose as MATERNAL [phone] [facility] CHILD [address] [place] [address] 2022-02-02 2022-02-02 Outpatient X ADUM, [facility] [id number] Univers 15:56:00 17:30:00 LIZETT lam [facility] 2022-02-02 2022-02-02 Emergency Ad, [facility] 1.2.212.165 [id number] Univers 15:56:00 17:30:00 Lizett Jimenez [facility] 350.1.13.10 ity of [place] 4.2.7.2.686 [facility] [phone] [address] 2022-02-02 2022-02-02 [facility] Miguel [facility] [facility] 1.2.840.114 [id number] Univers 00:00:00 00:00:00 Management Astrid A STOCK WORKER 350.1.13.10 ity of [facility] 4.2.7.2.686 Jose as MATERNAL [id number] [facility] CHILD [address] [place] [address] 2022-01-31 2022-01-31 Outpatient R DEMI [facility] [id number] Univers 09:45:00 10:15:27 LIAN ity o f [facility] 2022-01-31 2022-01-31 Routine [facility] 1.2.514.055 [id number] Univers 09:45:00 10:15:27 Lian C STOCK WORKER 350.1.13.10 ity of Visit [facility] 4.2.7.2.686 Jose as MATERNAL [id number] [facility] & CHILD [address] [place] [address] 2022-01-02 2022-01-02 Outpatient R MIGUEL ANGEL [facility] [id number] Univers 10:45:00 11:43:22 ASTRID lam [facility] 2022-01-02 2022-01-02 Routine Provider, Donte Bird [facility] 1 .2.840.114 [id number] Univers 10:45:00 11:43:22 Astrid Barnett STOCK WORKER 350.1.13. 10 ity of Visit REGION[facility] 4.2.7.2.686 Jose as MATERNAL [id number] Med ical & CHILD [address] [place] [address] 2021-12-30 2021-12-30 Outpatient R DEMI [facility] [id number] Univers 11:00:00 11:00:00 LIAN astorga f [facility] 2021-12-19 2021-12-[address] [facility] 1.2.840.114 [id number] Univers 00:00:00 00:00:00 Lian Brizuela STOCK WORKER 350.1.13.10 ity of REGIONAL 4.2.7.2.686 Jose as MATERNAL [phone] [facility] ical & CHILD [address] [place] [address] 2021-12-13 2021-12-13 Funeral Service Practitioner/Embalmer Ultrasound, Filiberto [facility] 1.2 .840.114 [id number] Univers 13:00:00 14:15:00 Visit Josesito Carrillo STOCK WORKER 350.1.13.10 ity of REGIONAL 4.2.7.2.686 Jose as MATERNAL [phone] [facility] ical & CHILD [address] [facility] 2021-12-13 2021-12-13 Outpatient P JOSESITO CARRILLO [facility] [id number] Univers 13:00:00 13:00:00 JOSESITO CARRILLO [facility] 2021-12-10 2021-12-10 Outpatient X ADUM, [facility] [id number] Univers 19:40:00 21:30:00 LIZETT lam [facility] 2021-12-10 2021-12-10 Emergency Adum, [facility] 1.2.646.196 [id number] Univers 19:40:00 21:30:00 Lizett ZIEGLER 350.1.13.10 ity of [place] 4.2.7.2.686 [facility] [phone] [facility] [address] 2021-12-10 2021-12-10 Orders Doctor LEROY 1.2.840.114 [id number] Univers 00:00:00 00:00:00 Only Unassigned, GENE 350.1.13.10 ity of [place] [facility] 4.2.7.2.686 Jose as [phone] [facility] [address] 2021-12-02 2021-12-02 Outpatient R AKINSIPE, [facility] [id number] Univers 11:00:00 11:28:34 LIAN ity o f [facility] 2021-12-02 2021-12-[address] [facility] 1.2.024.788 [id number] Univers 11:00:00 11:28:34 Lian C STOCK WORKER 350.1.13.10 ity of Visit [facility] 4.2.7.2.686 Jose as MATERNAL [phone] Med ical & CHILD [address] [place] [address] 2021-11-04 2021-11-04 Outpatient R AKINSIPE, [facility] [id number] Univers 12:45:00 13:34:38 LIAN ity o f [facility] 2021-11-04 2021-11-[address] [facility] 1.2.149.814 [id number] Univers 12:45:00 13:34:38 Lian C STOCK WORKER 350.1.13.10 ity of Visit [facility] 4.2.7.2.686 Jose as MATERNAL [id number] [facility] ical & CHILD [address] [place] [address] 2021-11-04 2021-11-04 Outpatient R AKINSIPE, [facility] [id number] Univers 12:45:00 12:45:00 LIAN ity o f [facility] 2021-10-29 2021-10-29 Abstract Akinsipe, [facility] 1.2.840.114 [id number] Univers 00:00:00 00:00:00 Lian C STOCK WORKER 350.1.13.10 ity of [facility] 4.2.7.2.686 Jose as MATERNAL [phone] Med ical & CHILD [address] [facility] 2021-10-25 2021-10-25 Funeral Service Practitioner/Embalmer Lab, RoWestchester Square Medical Centervidya [facility] 1.2.840. 114 [id number] Univers 15:00:00 15:39:34 Visit Crispin Son STOCK WORKER 350.1.13.10 ity [facility] 4.2.7.2.686 Jose as MATERNAL [id number] [facility] ical & CHILD [address] [place] [address] 2021-10-25 2021-10-25 Outpatient R CRISPIN SON [facility] 1 [id number] Univers 15:00:00 15:00:00 CRISPIN SON [facility] 2021-10-25 2021-10-25 Funeral Service Practitioner/Embalmer 1[facility] 1.2. 840.114 [id number] Univers 14:00:00 14:45:00 Visit Joey Silva STOCK WORKER 350.1.13.1 0 ity [facility] 4.2.7.2.686 Jose as MATERNAL [phone] [facility] CHILD [address] [email or web address] 2021-10-25 2021-10-25 Outpatient P [facility] [id number] Univers 14:00:00 14:00[facility] 2021-10-25 2021-10-25 Case Gurwinder [facility] 1.2.840.114 [id number] Univers 00:00:00 00:00:00 Management Rosalia STOCK WORKER 350.1.13.10 ity [facility] 4.2.7.2.686 Jose as MATERNAL [phone] [facility] & CHILD [address] [place] [address] 2021-10-24 2021-10-24 Outpatient Abhijeet WARNER [facility] [id number] Univers 15:15:00 16:00:28 JOHNNY [facility] 2021-10-24 2021-10-24 Routine Risk, Ajr-Jlyed-Zr/High [facility] 1. 2.840.114 [id number] Univers 15:15:00 16:00:28 WarnerJohnny STOCK WORKER 350.1.13.10 ity of Visit REGIONAL 4.2.7.2.686 Jose as MATERNAL [phone] [facility] & [address] 2021-10-17 2021-10-17 Telephone [facility] 1.2.840.114 [id number] Univers 00:00:00 00:00:00 Lian Brizuela STOCK WORKER 350.1.13.10 ity of REGIONAL 4.2.7.2.686 Jose as MATERNAL [id number] [facility] & [address] 2021-10-07 2021-10-07 Outpatient R DEMI [facility] [id number] Univers 13:00:00 13:29:01 LIAN astorga [facility] 2021-10-07 2021-10-07 Routine [facility] [id number] Univers 13:00:00 13:15:00 Lian Brizuela STOCK WORKER [id number] ity of Visit REGIONAL [id number] Jose as MATERNAL [id number] [address] 2021-10-07 2021-10-07 Outpatient R DEMI [facility] [id number] Univers 13:00:00 13:00:00 LIAN astorga [facility] 2021-09-30 2021-09-30 Outpatient JOSESITO ARIAS [facility] [id number] Univers 10:00:00 10:51:05 JOSESITO CARRILLO [facility] 2021-09-30 2021-09-30 Routine Faculty, [facility] [id number] Univers 10:00:00 10:51:05 Josesito Carrillo STOCK WORKER [id number] ity of Visit REGIONAL [id number] Jose as MATERNAL [phone] [facility] & [address] 2021-09-30 2021-09-30 Outpatient JOSESITO ARIAS [facility] [id number] Univers 10:00:00 10:51:05 LORENA JOSESITO ity of [facility] 2021-09-30 2021-09-30 Outpatient R [facility] [id number] Univers 10:00:00 10:00:00 ity of [facility] 2021-09-30 2021-09-30 Outpatient R [facility] [id number] Univers 10:00:00 10:00:00 ity of [facility] 2021-09-30 2021-09-30 Outpatient R [facility] [id number] Univers 10:00:00 10:00:00 ity of [facility] 2021-09-24 2021-09-24 [facility] 1.2.840.114 [id number] Univers 00:00:00 00:00:00 Lian C STOCK WORKER 350.1.13.10 ity of [facility] 4.2.7.2.686 Jose as MATERNAL [phone] [facility] CH[facility] [address] [place] [address] 2021-09-18 2021-09-18 [facility]phone [facility] 1.2.840.114 [id number] Univers 00:00:00 00:00:00 Lian C STOCK WORKER 350.1.13.10 ity of [facility] 4.2.7.2.686 Jose as MATERNAL [phone] [facility] & [address] 2021-09-10 2021-09-10 Anastacia HARPER 1.2.840.114 [id number] Univers 00:00:00 00:00:00 Only Unassigned, GENE 350.1.13.10 ity of [place] [facility] 4.2.7.2.686 Jose as [phone] [address] 2021-09-09 2021-09-09 [facility] 1.2.840.114 [id number] Univers 00:00:00 00:00:00 Lian C STOCK WORKER 350.1.13.10 ity of [facility] 4.2.7.2.686 Jose as MATERNAL [phone] [facility] CH[facility] [address] [place] [address] 2021-09-06 2021-09-06 LEROY Laguna 1.2.840.114 [id number] Univers 00:00:00 00:00:00 Triage Vicki MILLS 350.1.13.10 ity of [facility] 4.2.7.2.686 Jose as [phone] [address] 2021-09-06 2021-09-06 Nurse Lester HARPER 1.2.840.114 [id number] Univers 00:00:00 00:00:00 Triage Jamshid GENE 350.1.13.10 ity [facility] 4.2.7.2.686 Jose as [phone] [address] 2021-09-05 2021-09-05 [facility] 1.2.840.114 [id number] Univers 00:00:00 00:00:00 Lian C STOCK WORKER 350.1.13.10 ity of REGIONAL 4.2.7.2.686 Jose as MATERNAL [phone] [facility] CHILD [address] [place] [address] 2021-09-02 2021-09-02 Outpatient R AKINSIPE, [facility] [id number] Univers 15:00:00 16:51:33 LIAN lam o [facility] 2021-09-02 2021-09-02 Outpatient R AKINSIPE, [facility] [id number] Univers 15:00:00 16:51:33 LIAN jenkinsy o [facility] 2021-09-02 2021-09-02 Initial [facility] 1.2.109.648 [id number] Univers 15:00:00 16:51:33 Lian C STOCK WORKER 350.1.13.10 ity of Visit REGIONAL 4.2.7.2.686 Jose as MATERNAL [phone] [facility] & [address] 2021-09-02 2021-09-02 Outpatient R AKINSIPE, [facility] [id number] Univers 15:00:00 16:51:33 LIAN jenkinsy o f [facility] 2021-09-02 2021-09-02 Outpatient R AKINSIPE, [facility] [id number] Univers 15:00:00 15:00:00 LIAN lam o f [facility] 2021-09-02 2021-09-02 Outpatient R DEMI, [facility] [id number] Univers 15:00:00 15:00:00 LIAN bentley [facility] 2021-09-02 2021-09-02 Orders Doctor LEROY 1.2.840.114 [id number] Univers 00:00:00 00:00:00 Only Unassigned, GENE 350.1.13.10 ity of [place] [facility] 4.2.7.2.686 Jose as [phone] [place] [address] Branch Results Test Description Test Test Results Result Source Time Comments Comments ANTI-NUCLEAR 2022-05- JOSE EDUARDO - Pathologist Unive rsity of ANTIBODY-PATHOLOGI 04 InterpretationANA [facility] INTERPRETATION 16:54:28 HEp-2 IIFA Pathologist Branch [...] is strongly associated with a positive JOSE EDUARDO, such as systemic lupus erythematosus (JOSE EDUARDO [...] Cherie Garcia, Terrance R, Derek J, Wero BROTHERS, Camille LANDERS. Guidelines for clinical use of the antinuclear antibody test and tests for specific autoantibodies to nuclear antigens. [employer]. Arch Pathol Lab Med. 2000;124(1):71-81. doi:10.5858/1999-124-0 [id number]-GFCUOT- Anibal CL, Dominic D, Ev DN, et al. Diagnosis and Management of Autoimmune Hepatitis in Adults and Children: 2019 Practice Guidance and Guidelines From the [employer] the Study of Liver Diseases. Hepatology. 2020;72(2):671-722. doi:10.1002/hep.91286- Paolo C, Sergey EC, Mauri M. Rational use of blood tests in the evaluation of rheumatic diseases. Mo Med. 2012;109(1):59-63. Jessie Carcamo MD ?05/27/2022 ?11:52 AM05/27/2022 11:54 AM [facility] ANTI-NUCLEAR ANTIBODY SCREEN 2022-05-26 23:33:37 Test Item Value Reference Range Interpretation Comme nts JOSE EDUARDO (test code = 5255146099) Negative Negative MELVIN (test code = MELVIN) Negative: ?No Anti-Nuclear Antibodies detected by IFA. Positive: ?JOSE EDUARDO IFA screen performed with a 1:80 dilution in adults and a 1:40 dilution in pediatrics. ?A titer is performed and reported separately when the JOSE EDUARDO is "Positive" or when "Cytoplasmic staining is observed." Lab Interpretation (test code = Normal 05369-0) [facility]2022-05-25 15:14:32 Test Item Value Reference Range Interpretation Comments Anti-Aptel (test code = Negative Negative 0635823609) MELVIN (test code = MELVIN) Positive - Antibody detected.Negative - No antibody detected. Lab Interpretation (test Normal code = 07410-7) [facility] CenterLbhxlgGFJR-BUGNQRDIEQSWZHZWT3061-52-02 15:14:32 Test Item Value Reference Range Interpretation Comments Anti-Ribonucleoprotein Negative Negative (test code = 3107582688) MELVIN (test code = MELVIN) Positive - Antibody detected.Negative - No antibody detected. Lab Interpretation (test Normal code = 19352-1) [facility]A(RO)2022-05-25 15:14:32 Test Item Value Reference Range Interpretation Comments ANTI-SSA(RO) (test code = Negative Negative 8661550313) MELVIN (test code = MELVIN) Positive - Antibody detected.Negative - No antibody detected. Lab Interpretation (test Normal code = 48471-6) [facility] Center[facility]-DOUBLE STRANDED [id number] 15:14:11 Test Item Value Reference Range Interpretation Comments ANTI-DSDNA (test code See_Comment [Auto mated = 2723591607) message] The system which generated this result transmit jamel reference range : 0.0 - 4.0 IU/mL . The reference range was not u sed to interpret th is result as normal/abnormal . MELVIN (test code = MELVIN) Negative ? ?< or = 4 IU/mLPositive ? ? ?> or = 10 IU/mLIndetermin ate ?5-9 IU/mL Lab Interpretation Normal (test code = 18188-7) [facility](LA)2022-05-25 15:14:11 Test Item Value Reference Range Interpretation Comments Anti-SSB(LA) (test code = Negative Negative 6692075963) MELVIN (test code = MELVIN) Positive - Antibody detected.Negative - No antibody detected. Lab Interpretation (test Normal code = 92041-6) [facility] CenterC4 [id number] 19:45:31 Test Item Value Reference Range Interpretation Comments C4 (test code = 1661634260) 39 mg/dL 20-59 Lab Interpretation (test code = Normal 44835-5) [facility] CenterRHEUMATOID [id number] 19:45:31 Test Item Value Reference Range Interpretation Comments RF (test code = See_Comment [Automated message] 6233899814) The system [employer] generated this result transmitted ref erence range: <20 IU/m L. The reference range was not used to int erpret this result as normal/abnormal . Lab Interpretation (test Normal code = 68583-1) [facility] CenterC-REACTIVE [id number] 19:45:31 Test Item Value Reference Range Interpretation Comments CRP (test code = 0174240405) 0.4 mg/dL <=0.8 Lab Interpretation (test code = Normal 56338-2) [facility] CenterC3 [id number] 19:45:30 Test Item Value Reference Range Interpretation Comments C3 (test code = 6025903284) 146 mg/dL 86-184 Lab Interpretation (test code = Normal 89653-7) [facility] CenterHCV [id number] 18:58:53 Test Item Value Reference Range Interpretation Comments HCV Ab (test code = 56713-0) Negative HCV Semi-Quantitative (test code = 0.03 32355-1) [facility] CenterVITAMIN D, [id number] 18:27:04 Test Item Value Reference Range Interpretation Comments VIT D 25OH (test code = 14 ng/mL 25-80 L 84363-8) MELVIN (test code = MELVIN) Deficiency: <20 ng/mLInsufficiency: 20-24 ng/mLOptimal: 25-80 ng/mL Lab Interpretation (test Abnormal code = 66348-7) [facility] CenterCBC with Byidkxqfixhn0820-86-87 10:36:30 Test Item Value Reference Range Interpretation Comments WBC (test code = 10.67 See_Comment [Automated 5590-2) message] The sy stem which generated this result transmitted reference range : 4.30 - 11.10 10*3/?L. The reference range was not used to interpret this result as normal/abnormal . RBC (test code = 3.72 See_Comment L [Automated 849-8) message] The sy stem which generated this [...] RDW-SD (test code = 49.8 fL 39.0-49.9 59878-4) RDW-CV (test code = 18.2 % 12.0-15.5 H 788-0) PLT (test code = 200 See_Comment [Automated 777-3) message] The sy stem which generated this result transmitted reference range : 166 - 358 10*3/ ?L. The reference r helene was not used to interpret this result as normal/abnormal . MPV (test code = 11.0 fL 9.5-12.9 03917-0) NRBC/100 WBC (test 0.0 See_Comment [Automat ed code = 4478149284) message] The system which generated this result transmitted reference range : 0.0 - 10.0 /100 WBCs. The refer ence range was not u sed to interpret th is result as normal/abnormal . NRBC x10^3 (test code See_Comment [Auto mated = 2458086363) message] The s ystem which generated this result transmitted reference range : 10*3/?L. The reference range was not used to interpret this result as normal/abnormal . GRAN MAT (NEUT) % 81.9 % (test code = 770-8) IMM GRAN % (test code 0.60 % = 5113917240) LYMPH % (test code = 11.7 % 736-9) MONO % (test code = 4.8 % 5905-5) EOS % (test code = 0.9 % 713-8) BASO % (test code = 0.1 % 706-2) GRAN MAT x10^3(ANC) 8.74 10*3/uL 1.88-7.09 H (test code = 2702182368) IMM GRAN x10^3 (test 0.06 10*3/uL 0.00-0.06 code = 3058098011) LYMPH x10^3 (test code 1.25 10*3/uL 1.32-3.29 L = 731-0) MONO x10^3 (test code 0.51 10*3/uL 0.33-0.92 = 742-7) EOS x10^3 (test code = 0.10 10*3/uL 0.03-0.39 711-2) BASO x10^3 (test code 0.01-0.07 = 704-7) Lab Interpretation Abnormal (test code = 63296-9) [facility] with Ptixewmgwkal2865-56-13 10:36:30 Test Item Value Reference Range Interpretation [...] RDW-SD (test code = 49.8 fL 39.0-49.9 14159-1) RDW-CV (test code = 18.2 % 12.0-15.5 H 788-0) PLT (test code = 200 See_Comment [Automated 777-3) message] The sy stem which generated this result transmitted reference range : 166 - 358 10*3/ ?L. The reference r helene was not used to interpret this result as normal/abnormal . MPV (test code = 11.0 fL 9.5-12.9 19472-8) NRBC/100 WBC (test 0.0 See_Comment [Automat ed code = 8761528277) message] The system which generated this result transmitted reference range : 0.0 - 10.0 /100 WBCs. The refer ence range was not u sed to interpret th is result as normal/abnormal . NRBC x10^3 (test code See_Comment [Auto mated = 9875120237) message] The s ystem which generated this result transmitted reference range : 10*3/?L. The reference range was not used to interpret this result as normal/abnormal . GRAN MAT (NEUT) % 81.9 % (test code = 770-8) IMM GRAN % (test code 0.60 % = 3434715403) LYMPH % (test code = 11.7 % 736-9) MONO % (test code = 4.8 % 5905-5) EOS % (test code = 0.9 % 713-8) BASO % (test code = 0.1 % 706-2) GRAN MAT x10^3(ANC) 8.74 10*3/uL 1.88-7.09 H (test code = 7650338794) IMM GRAN x10^3 (test 0.06 10*3/uL 0.00-0.06 code = 0309109564) LYMPH x10^3 (test code 1.25 10*3/uL 1.32-3.29 L = 731-0) MONO x10^3 (test code 0.51 10*3/uL 0.33-0.92 = 742-7) EOS x10^3 (test code = 0.10 10*3/uL 0.03-0.39 711-2) BASO x10^3 (test code 0.01-0.07 = 704-7) Lab Interpretation Abnormal (test code = 35979-6) [facility] (D) IMMUNE [id number] 12:57:08 Test Item Value Reference Range Interpretation Comments RHIG CANDIDATE? No- see comment Patient i s not a (test code = candidate for R hIg- 5055) Patient is Rh Positive.Perfor med at [facility] Laboratory [facility] - [facility] Blood [address] [place] [address]Hmda Free: [phone] A No. [id number] [facility] (D) IMMUNE [id number] 12:57:08 Test Item Value Reference Range Interpretation Comments RHIG CANDIDATE? No- see comment Patient i s not a (test code = candidate for R hIg- 5055) Patient is Rh Positive.Perfor med at [facility] Laboratory Services - [facility] Blood [address] [address]Xzfd Free: [phone] A No. [id number] [facility] CORD [id number] 10:01:20 Test Item Value Reference Range Interpretation Comments VENOUS BASE EXCESS, -5.6 mEq/L CORD (test code = 4155165051) VENOUS PH, CORD (test 7.36 7.25-7.45 code = 4459986354) VENOUS PC02, CORD 34 See_Comment [Automate d message] The (test code = system which ge nerated 9631094252) this result tra nsmitted reference range : 27 - 49 mmHg. The refer ence range was not used to interpret this result as normal/abnormal . VENOUS PO2, CORD (test 31 See_Comment [Aut omated message] The code = 1303189786) system [employer] generated this result tra nsmitted reference range : 17 - 41 mmHg. The refer ence range was not used to interpret this result as normal/abnormal . VENOUS BICARBONATE, 19 See_Comment [Automa jamel message] The CORD (test code = system [employer] generated 8265354368) this result tra nsmitted reference range : 12 - 29 mEq/L. The refe rence range was not used to interpret this result as normal/abnormal . [facility] CORD [id number] 10:01:20 Test Item Value Reference Range Interpretation Comments VENOUS BASE EXCESS, -5.6 mEq/L CORD (test code = 4511271978) VENOUS PH, CORD (test 7.36 7.25-7.45 code = 6883044668) VENOUS PC02, CORD 34 See_Comment [Automate d message] The (test code = system which ge nerated 9911045852) this result tra nsmitted reference range : 27 - 49 mmHg. The refer ence range was not used to interpret this result as normal/abnormal . VENOUS PO2, CORD (test 31 See_Comment [Aut omated message] The code = 0388635591) system [employer] generated this result tra nsmitted reference range : 17 - 41 mmHg. The refer ence range was not used to interpret this result as normal/abnormal . VENOUS BICARBONATE, 19 See_Comment [Automa jamel message] The CORD (test code = system [facility] generated 5959724226) this result tra nsmitted reference range : 12 - 29 mEq/L. The refe rence range was not used to interpret this result as normal/abnormal . [facility] CORD [id number] 09:58:24 Test Item Value Reference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 amendments must be made on the [employer] document * Silvana Anthony 06/13/181817: HPI-Dyspnea/Wheezing General [...] Room air Interpretation Pulse oximetry normal Time 180 Re-Evaluation MDM Free Text MDM Notes Free [...] symptoms should prompt an immediate return to [facility] or the closest emergency department or a [...] Temp 97.5 06/13 180 Pulse 84 06/13 1807 Resp 20 06/13 1807 O2 Delivery Nasal cannula 06/13 182 O2 Flow Rate 2.141502 06/13 1822 Last Documented: Result Date Time Pulse Ox 98 06/13 1928 B/P 154/65 06/13 192 B/P Mean 94.7 06/14 1927 Temp 97.9 06/13 192 Pulse 94 06/13 192 Resp 18 06/13 192 O2 Delivery Nasal cannula 06/13 182 O2 Flow Rate 4.141401 06/13 182 Interpretation Diagnostics Lab Results Interpretation Results Re-Evaluation MDM ED Course Medication(s) Ordered Patient Discharge Departure Vital Signs/Condition Vital Signs First Documented: Result Date Time Pulse Ox 97 06/13 180 B/P 125/79 06/13 180 B/P Mean 94.3 06/137 Temp 97.5 06/13 180 Pulse 84 06/13 1807 Resp 20 06/13 180 O2 Delivery Nasal cannula 06/13 182 O2 Flow Rate 2.169209 06/13 1822 Last Documented: Result Date Time Pulse Ox 98 06/13 192 B/P 154/65 06/13 192 B/P Mean 94.7 06/13 192 Temp 97.9 06/13 192 Pulse 94 06/13 192 Resp 18 06/14 1927 O2 Delivery Nasal cannula 06/13 182 O2 Flow Rate 4.358675 06/13 182 All vital signs available at the time of this en try have been reviewed. Supervising Physician Note MidLv Saw Pt Alone I have reviewed the PA/COMPOSITE BOND TECHNICIAN's note and plan of car e. I was available for consultation as needed at al l times during the patient's visit in the emergency department. I agree with the clinical impression , plan and disposition. Electronically Signed by Leti Cisneros MD on at [facility] RPT #:[id number] END OF REPORT 2018-06-13 18:18:00-00:00 [facility] REPORT REPORT#:[id number] REPORT STATUS: Signed DATE:06/13/18 TIME: 1817 PATIENT: TANIKA MONTEMAYOR UNIT #: [id number] ROOM/BED: AGE: 17 SEX: F PCP PHYS: DOES_NOT KNOW SERVICE AUTHOR: Silvana Anthony COMPOSITE BOND TECHNICIAN * ALL edits or amendments must be made on the [employer]/computer document * Silvana Anthony 06/13/181817: HPI-Dyspnea/Wheezing General [...] Coronary Artery Disease Risk factors reviewed, Taj iajuantes mellitus (pre) Review of Systems Focused Review [...] Room air Interpretation Pulse oximetry normal Time 180 Re-Evaluation MDM Free Text MDM Notes Free [...] symptoms should prompt an immediate return to [facility] or the closest emergency department or a [...] Pulse 84 06/13 180 Resp 20 06/13 1806 O2 Delivery Nasal cannula 06/13 1822 O2 Flow Rate 2.424400 06/13 1822 Last Documented: Result Date Time Pulse Ox 98 06/14 1927 B/P 154/65 06/14 1927 B/P Mean 94.7 06/14 1927 Temp 97.9 06/14 1927 Pulse 94 06/14 1927 Resp 18 06/14 1927 O2 Delivery Nasal cannula 06/13 1824 O2 Flow Rate 4.904123 06/13 1824 Interpretation Diagnostics Lab Results Interpretation Results Re-Evaluation MDM ED Course Medication(s) Ordered Patient Discharge Departure Vital Signs/Condition Vital Signs First Documented: Result Date Time Pulse Ox 97 06/13 1806 B/P 125/79 06/13 180 B/P Mean 94.3 06/13 1806 Temp 97.5 06/13 1806 Pulse 84 06/13 180 Resp 20 06/13 180 O2 Delivery Nasal cannula 06/13 1822 O2 Flow Rate 2.695726 06/13 1822 Last Documented: Result Date Time Pulse Ox 98 06/14 1927 B/P 154/65 06/14 1927 B/P Mean 94.7 06/14 1927 Temp 97.9 06/14 1927 Pulse 94 06/14 1927 Resp 18 06/14 1927 O2 Delivery Nasal cannula 06/13 1824 O2 Flow Rate 4.459385 06/13 1824 All vital signs available at the time of this en try have been reviewed. Supervising Physician Note MidLv Saw Pt Alone I have reviewed the PA/COMPOSITE BOND TECHNICIAN's note and plan of car e. I was available for consultation as needed at al l times during the patient's visit in the emergency department. I agree with the clinical impression , plan and disposition. Electronically Signed by Leti Cisneros MD on at 1024 at 1610 RPT #:[id number] END OF REPORT 2018-06-13 18:18:00-00:00 [facility] ([facility]) EMERGENCY PROVIDER REPORT REPORT#:[id number] REPORT STATUS: Signed DATE:06/13/18 TIME: 1817 PATIENT: TANIKA MONTEMAYOR UNIT #: [id number] ROOM/BED: AGE: 17 SEX: F PCP PHYS: DOES_NOT KNOW SERVICE AUTHOR: Silvana Anthony COMPOSITE BOND TECHNICIAN * ALL edits or amendments must be made on the [employer]/computer document * Silvana Anthony 06/13/181817: HPI-Dyspnea/Wheezing General [...] symptoms should prompt an immediate return to [facility] or the closest emergency department or a call to 1. Quality Measures BP F/U for HTN Referred for BP f/u < 4wk Smoking Cessation Screened, non user Tobacco Screening/Cessation 18 years or older, D enies tobacco use Carmina Cisneros 06/14/18 1024: Physical Exam Vital Signs Vital Signs First Documented: Result Date Time Pulse Ox 97 06/13 1806 B/P 125/79 06/13 180 B/P Mean 94.3 06/13 180 Temp 97.5 06/13 180 Pulse 84 06/13 180 Resp 20 06/13 1807 O2 Delivery Nasal cannula 06/13 182 O2 Flow Rate 2.139108 06/13 182 Last Documented: Result Date Time Pulse Ox 98 06/13 192 B/P 154/65 06/14 1927 B/P Mean 94.7 06/14 1927 Temp 97.9 06/13 192 Pulse 94 06/13 1928 Resp 18 06/13 1928 O2 Delivery Nasal cannula 06/13 1825 O2 Flow Rate 4.809413 06/13 1825 Interpretation Diagnostics Lab Results Interpretation Results Re-Evaluation MDM ED Course Medication(s) Ordered Patient Discharge Departure Vital Signs/Condition Vital Signs First Documented: Result Date Time Pulse Ox 97 06/13 1807 B/P 125/79 06/13 1807 B/P Mean 94.3 06/13 1807 Temp 97.5 06/13 180 Pulse 84 06/13 1807 Resp 20 06/13 1807 O2 Delivery Nasal cannula 04/21 1823 O2 Flow Rate 2.807264 06/13 1822 Last Documented: Result Date Time Pulse Ox 98 06/14 1927 B/P 154/65 06/14 1927 B/P Mean 94.7 06/14 1927 Temp 97.9 06/14 1927 Pulse 94 06/14 1927 Resp 18 06/14 1927 O2 Delivery Nasal cannula 06/13 1824 O2 Flow Rate 4.076740 06/13 1824 All vital signs available at the time of this en try have been reviewed. Supervising Physician Note MidLv Saw Pt Alone I have reviewed the PA/COMPOSITE BOND TECHNICIAN's note and plan of car e. I [...] Saw Pt Alone I have reviewed the PA/COMPOSITE BOND TECHNICIAN's note and plan of car e. I was available for consultation as needed at al l times during the patient's visit in the emergency department. I agree with the clinical impression , plan and disposition. Electronically Signed by Leti Cisneros MD on at 1024 at 1610 RPT #:[id number] END OF REPORT 2018-06-13 18:18:00-00:00 [facility] EMERGENCY PROVIDER REPORT REPORT#:[id number] REPORT STATUS: Signed DATE:06/13/18 TIME: 1817 PATIENT: TANIKA MONTEMAYOR UNIT #: [id number] ROOM/BED: AGE: 17 SEX: F PCP PHYS: DOES_NOT KNOW SERVICE AUTHOR: Silvana Anthony COMPOSITE BOND TECHNICIAN * ALL edits or amendments must be made on the [employer]computer document * Silvana Anthony 06/13/181817: HPI-Dyspnea/Wheezing General [...] Coronary Artery Disease Risk factors reviewed, Taj iajuantes mellitus (pre) Review of Systems Focused Review [...] symptoms should prompt an immediate return to [facility] or the closest emergency department or a call to 1. Quality Measures BP F/U for HTN Referred [...] Nasal cannula 06/13 182 O2 Flow Rate 2.046621 06/13 182 Last Documented: Result Date Time Pulse Ox 98 06/14 1927 B/P 154/65 06/14 1927 B/P Mean 94.7 06/14 1927 Temp 97.9 06/13 192 Pulse 94 06/13 192 Resp 18 06/13 192 O2 Delivery Nasal cannula 06/13 1825 O2 Flow Rate 4.352535 06/13 1825 Interpretation Diagnostics Lab Results Interpretation Results Re-Evaluation MDM ED Course Medication(s) Ordered Patient Discharge Departure Vital Signs/Condition Vital Signs First Documented: Result Date Time Pulse Ox 97 06/13 180 B/P 125/79 06/13 1807 B/P Mean 94.3 06/13 180 Temp 97.5 06/13 180 Pulse 84 06/13 1807 Resp 20 06/13 1807 O2 Delivery Nasal cannula 06/13 1822 O2 Flow Rate [id number] 06/13 1822 Last Documented: Result Date Time Pulse Ox 98 06/14 1927 B/P 154/65 06/14 1927 B/P Mean 94.7 06/14 1927 Temp 97.9 06/14 1927 Pulse 94 06/14 1927 Resp 18 06/14 1927 O2 Delivery Nasal cannula 06/13 1824 O2 Flow Rate 4.876904 06/13 1824 All vital signs available at the time of this en try have been reviewed. Supervising Physician Note MidLv Saw Pt Alone I have reviewed the PA/COMPOSITE BOND TECHNICIAN's note and plan of car e. I was available for consultation as needed at al l times during the patient's visit in the emergency department. I agree with the clinical impression , plan and disposition. Roland Catalan 06/15/18 0041: HPI-Dyspnea/Wheezing General Initial Greet Date/Time 06/13/18 180 Physical Exam Vital Signs Vital Signs Interpretation Diagnostics Lab Results Interpretation Results Patient Discharge Departure Vital Signs/Condition Vital Signs Supervising Physician Note MidLv Saw Pt Alone I have reviewed the PA/COMPOSITE BOND TECHNICIAN's note and plan of car e. I was available for consultation as needed at al l times during the patient's visit in the emergency department. I agree with the clinical impression , plan and disposition. Electronically Signed by Leti Cisneros MD on at 1024 at 1610 Electronically Signed by Roland Catalan DO on at 0042 RPT #:[id number] END OF REPORT 2018-05-15 17:13:00-00:00 [facility] ([facility]) EMERGENCY PROVIDER REPORT REPORT#:[id number] REPORT STATUS: Signed DATE:05/15/18 TIME: 1713 PATIENT: TANIKA MONTEMAYOR UNIT #: [id number] ROOM/BED: AGE: 17 SEX: F PCP PHYS: DOES_NOT KNOW SERVICE AUTHOR: Juan David Jalloh * ALL edits or amendments must be made on the el ectronic/computer document * HPI-Ankle Prob/Inj General Confirmed Patient [...] Room air 05/15 1625 Temp 36.9 05/15 162 Pulse 85 05/15 162 Resp 18 05/15 1625 Review of Vital [...] Report Impression - Status: SIGNED Entered: 05/15/2018 6207 IMPRESSION: 1. Soft tissue swelling, no acute [...] symptoms should prompt an immediate return to [facility] or the closest emergency department or a [...] Juan David Jalloh on at 1029 RPT #:[id number] END OF REPORT 2018-05-15 17:13:00-00:00 [facility] ([facility]) EMERGENCY PROVIDER REPORT REPORT#:[id number] REPORT STATUS: Signed DATE:05/15/18 TIME: 1712 PATIENT: TANIKA MONTEMAYOR UNIT #: [id number] ROOM/BED: AGE: 17 SEX: F PCP PHYS: DOES_NOT KNOW SERVICE AUTHOR: Juan David Jalloh * ALL edits or amendments must be made on the el [employer]/computer document * Juan David Jalloh 05/15/18 1713: [...] 85 05/15 1626 Resp 18 05/15 162 Review of Vital Signs Reviewed Focused PE [...] symptoms should prompt an immediate return to [facility] or the closest emergency department or a [...] Saw Pt Alone I have reviewed the PA/COMPOSITE BOND TECHNICIAN's note and plan of car e. I was available for consultation as needed at al l times during the patient's visit in the emergency department. Electronically Signed by Juan David Jalloh on at 1029 Electronically Signed by Red De La Garza MD on at 0304 [facility] #:[id number] END OF REPORT
[2022-07-12] MEDS ORDERED: KETOROLAC 30 MG/ML INJ ONE (01:32)
[2022-07-12] MEDS ORDERED: DERMABOND SKIN ADHESIVE TOP ONE (01:32)
--- NOTE | 2022-07-12 01:32 | EDPHYS ---
Physician Documentation [facility] Name: Tanika Lawrence Age: 21 yrs Sex: Female : 2000 Arrival Date: 07/12/2022 Time: 01:03 Bed 12 Private MD: ED Physician Ajit Sarkar HPI: 07/12 01:19 This 21 yrs old Female presents to ER via Unassigned with complaints of bs3 Toothache. 01:19 Patient seen earlier tonight for a cracked tooth and pain states that her pain is bs3 persistent and therefore came in she received an antibiotic and pain medicine but it did not help she denies fevers chills inability to eat drink or swallow or anything else bothering her pain is moderate in intensity worse with cold drinks or the air. Historical: - PMHx: 01:35 Asthma; autoimmune disease; HTN; pre eclampsia; kd3 - PSHx: 01:35 section; kd3 - Immunization history:: Adult Immunizations up to date. - Social history:: Smoking status: Reported history of juuling and/or vaping. ROS: 01:19 Constitutional: Negative for fever, chills bs3 01:19 All other systems are negative. Exam: 01:19 Constitutional: This is a well developed, well nourished patient who is awake, alert, bs3 and in no acute distress. Head/Face: Normocephalic, atraumatic. Eyes: Pupils equal round and reactive to light, extra-ocular motions intact. Lids and lashes normal. ENT: She has poor dentition her right lower premolar is cracked and tender to percussion but there is no periapical abscess Neck: Trachea midline, no thyromegaly, no neck stiffness Chest/axilla: Normal chest wall appearance and motion. Nontender with no deformity. No lesions are appreciated. Cardiovascular: Regular rate and rhythm with a normal S1 and S2. symmetric pulses in upper extremities Vital Signs: 01:34 BP 132 / 94; Pulse 19; Resp 82; Temp 98.2(O); Pulse Ox 100% on R/A; Weight 53.07 kg; kd3 Height 5 ft. 2 in. ; 01:34 Pulse 82; Resp 18; kd3 01:34 Body Mass Index 21.40 (53.07 kg, 157.48 cm) kd3 Procedures: 01:19 After drying the tooth, Dermabond was applied as a substitute for Eugenol solution or bs3 calcium hydroxide. MDM: 01:11 Patient medically screened. bs3 01:19 Data reviewed: vital signs, nurses notes. ED course: Patient with no periapical abscess bs3 I attempted to relieve her pain by covering the exposed area she does need a tooth extraction she was already prescribed antibiotics and received 1 today advised NSAIDs and outpatient follow-up. 01:31 ED course: no sig pain relief with dermabond application, advised f/u with dentistry bs3 and calcium hydroxide paste. 07/12 01:25 Order name: Dermabond; Complete Time: 01:28 vc1 Administered Medications: 01:34 Drug: Ketorolac IM 30 mg Route: IM; Site: right gluteus; kd3 Disposition Summary: 07/12/22 01:32 Discharge Ordered Location: Home bs3 Problem: new bs3 Symptoms: are unchanged bs3 Condition: Stable bs3 Diagnosis - Cracked tooth bs3 Followup: bs3 - With: Private Physician - When: 2 - 3 days - Reason: Re-evaluation by your physician Discharge Instructions: - Discharge Summary Sheet bs3 - Dental Pain, [id number] bs3 Forms: - Medication Reconciliation Form bs3 - Thank You Letter bs3 - Antibiotic Education bs3 - Prescription Opioid Use bs3 Signatures: Carissa Solorio, RN RN kd3 Kelli Vigil RN RN vc1 Ajit Sarkar MD MD bs3
--- NOTE | 2022-07-12 01:49 | ER ---
Nurse's Notes [facility] Name: Tanika Lawrence Age: 21 yrs Sex: Female : 2000 Arrival Date: 07/12/2022 Time: 01:03 Bed 12 Private MD: Diagnosis: Cracked tooth Presentation: 07/12 01:34 Chief complaint:. kd3 01:35 Coronavirus screen: Vaccine status: Patient reports receiving the 2nd dose of the covid kd3 vaccine. Ebola Screen: No symptoms or risks identified at this time. Initial Sepsis Screen: Does the patient meet any 2 criteria? No. Patient's initial sepsis screen is negative. Does the patient have a suspected source of infection? No. Patient's initial sepsis screen is negative. Risk Assessment: Do you want to hurt yourself or someone else? Patient reports no desire to harm self or others. Onset of symptoms was July 12, 2022. 01:35 Method Of Arrival: Ambulatory kd3 01:35 Acuity: SILVIA 4 kd3 Triage Assessment: 01:35 General: Appears uncomfortable, Behavior is calm, cooperative. Pain: Complains of pain kd3 in mouth. EENT: Reports pain in mouth. Historical: - PMHx: 01:35 Asthma; autoimmune disease; HTN; pre eclampsia; kd3 - PSHx: 01:35 section; kd3 - Immunization history:: Adult Immunizations up to date. - Social history:: Smoking status: Reported history of juuling and/or vaping. Screenin:46 [facility] ED Fall Risk Assessment (Adult) History of falling in the last 3 months, vc1 including since admission No falls in past 3 months (0 pts) Confusion or Disorientation No (0 pts) Intoxicated or Sedated No (0 pts) Impaired Gait No (0 pts) Mobility Assist Device Used No (0 pt) Altered Elimination No (0 pt) Score/Fall Risk Level 0 - 2 = Low Risk Oriented to surroundings, Maintained a safe environment, Educated pt \T\ family on fall prevention, incl call for assistance when getting out of bed. Abuse screen: Denies threats or abuse. Nutritional screening: No deficits noted. Tuberculosis screening: No symptoms or risk factors identified. Vital Signs: 01:34 BP 132 / 94; Pulse 19; Resp 82; Temp 98.2(O); Pulse Ox 100% on R/A; Weight 53.07 kg; kd3 Height 5 ft. 2 in. ; 01:34 Pulse 82; Resp 18; kd3 01:34 Body Mass Index 21.40 (53.07 kg, 157.48 cm) kd3 ED Course: 01:07 Patient arrived in ED. ag3 01:11 Ajit Sarkar MD is Attending Physician. bs3 01:28 Carissa Solorio, RN is Primary Nurse. kd3 01:35 Triage completed. kd3 01:35 Arm band placed on right wrist. kd3 01:47 No provider procedures requiring assistance completed. Patient did not have IV access vc1 during this emergency room visit. Administered Medications: 01:34 Drug: Ketorolac IM 30 mg Route: IM; Site: right gluteus; kd3 Medication: 01:48 VIS not applicable for this client. vc1 Outcome: 01:32 Discharge ordered by . bs3 01:47 Discharged to home ambulatory. vc1 01:47 Condition: good 01:47 Discharge instructions given to patient, Instructed on discharge instructions, follow up and referral plans. Demonstrated understanding of instructions, follow-up care. 01:48 Patient left the ED. vc1 Signatures: Joan Brandt 3 Carissa Solorio RN RN kd3 Kelli Vigil RN RN vc1 Ajit Sarkar MD MD bs3
[2022-07-12 02:04] VITALS: BP 132/94; TEMP 98.2; O2SAT 100
== END 2022-07-12 01:48 | disposition home or self-care (01) ==
LOC: ER 01:03
DX: K03.81 Cracked tooth (principal)

== ENCOUNTER 2023-04-02 23:44 | Emergency (ER) | payer OTHER ==
--- OUTSIDE RECORDS SUMMARY | 2023-04-02 23:57 | XMS REPORT | Continuity of Care Document ---
Author Name Unknown Address [address] [facility]. [address] [id number] [facility] thconnect Address [address] [facility] 1 [address] [place] [address] Care Team Providers Care Mechanic Helper Name Role Phone SHEELA JALLOH Primary Care Physician UnavailMADHURI Nielsen Attending Clinician Unavailable LEROY LORENZANA Attending Clinician Unavailable ASTRID MICHELLE Attending Clinician Unavailjacob Orozco MD, Madhuri Rosenbaum Attending Clinician [phone] Emelia Odonnell RN Attending Clinician Unavailab Astrid Peterson CNM Attending Clinician [phone] ROVERTO HOFF Attending Clinician Unav ailable LIZETT WEI Attending Clinician Unavailable Karol Espino Attending Clinician [phone] Lizett Wei MD Attending Clinician [phone] Stephania STALLWORTH, Judy Camacho Attending Clinician Unavailab Martha Campbell RN Attending Clinician Unavailable EMILEE MARTINO Attending Clinician Unav ailshailesh Borja, [facility] Attending Clinician Unavailjacob Martino MD, Emilee Yanez Attending Clinician + Melissa AMBROSE, Phil Attending Clinician [phone] PHIL TORRES Attending Clinician Unavailable Lian Mooney Attending Clinician + Chip Adams DO Attending Clinician [phone] CHIP ADAMS Attending Clinician Unavailable LIAN SIMMS Attending Clinician Unavail able SHEELA JALLOH Attending Clinician Unavailable Ag VEHICLE BODY BUILDERSheela Attending Clinician [phone] Doctor Unassigned, Grandin Attending Clinician U JADE Pang Attending Clinician Unavailab Jade Beltrán DO Attending Clinician + [phone] Carolina AMBROSE, Thomas Attending Clinician + [phone] Pcp-Lab Attending Clinician Unavailable Massimo AMBROSE, Analia Harry Attending Clinician [phone] ANALIA WILLS Attending Clinician Unavail able 2, Ad[facility] Lab Attending Clinician Unavailable Visit, [facility] Nurse Attending Clinician Unava peter Bowman MD, Daquan Attending Clinician [phone] Fernandez AMBROSE, Ronen White Attending Clinician [phone] Malcolm STALLWORTH, Jose Cruz Camacho Attending Clinician Unavaila ble Provider, [facility] Temp Attending Clinician Linda Josesito Manning MD Attending Clinician [phone] JOSESITO CARRILLO Attending Clinician Unavailable JOSESITO CARRILLO Attending Clinician Unavailable Lab, [facility] Attending Clinician Unavailable Crispin Campbell Attending Clinician [phone] CRISPIN STEPHEN Attending Clinician Unavailable 1, [facility] Us Room Attending Clinician Unavailab geronimo Silva MD, Joey Simmons Attending Clinician + [phone] Rosalia Purdy APN Attending Clinician [phone] JOHNNY WARNER Attending Clinician Unavailable Risk, Pww-Hrfjq-Tz/High Attending Clinician Unav ailJohnny Higginbotham Attending Clinician + [phone] Faculty, [facility] Mfm Attending Clinician Willie Gardner RN, Vicki Jimenez Attending Clinician MADHURI Ennis Admitting Clinician Unavailable LIZETT WEI Admitting Clinician Unavailable Madhuri Orozco MD Admitting Clinician [phone] Lizett Wei MD Admitting Clinician [phone] ELMER JALLOHSSICA Admitting Clinician Unavailable Chip Adams DO Admitting Clinician [phone] Payers Payer Name Policy Type Policy Number Effective Date Expirati on Date Source [facility] [id number] 2023 00:00:00 [facility] [id number] 2021 00:00:00 MEDICAID PENDING PENDING 2021 00:00:00 Problems Condition Name Condition Details Condition Category Status Onset Date Resolution Date Last Treatment Date Treating Clinician Comments Source Gallbladde r pain Gallbladde r pain Disease Active 1-16 00:00: 00 [facility] Declines flu vaccine Declines flu vaccine Disease Active 2022-02 0-03 00:00: 00 [facility] Supervisio n of high risk in second trimester Supervisio n of high risk in second trimester Disease Active 9-05 00:00: 00 [facility] Multiparit y Multiparit y Disease Active 9-05 00:00: 00 [facility] Current every day vaping Current every day vaping Disease Active 7-13 00:00: 00 [facility] Previous delivery affecting , antepartum Previous delivery affecting , antepartum Disease Active 7-13 00:00: 00 [facility] Short interval between pregnancie s affecting , antepartum Short interval between pregnancie s affecting , antepartum Disease Active 713 00:00: 00 Overview: Formattin g of this note might be different from the original. [facility] 3 [facility] Well woman exam Well woman exam Disease Active 4-14 00:00: 00 [facility] Routine follow-up Routine follow-up Disease Active 3-24 00:00: 00 [facility] 38 weeks gestation of 38 weeks gestation of Disease Active 3-01 00:00: 00 [facility] growth restrictio n antepartum growth restrictio n antepartum Disease Active 3-01 00:00: 00 [facility] Elevated blood pressure affecting in third trimester, antepartum Elevated blood pressure affecting in third trimester, antepartum Disease Active 3-01 00:00: 00 [facility] Positive GBS test Positive GBS test Disease Active 2-17 00:00: 00 [facility] Anemia of mother in , antepartum Anemia of mother in , antepartum Disease Active 2021-02 2-11 00:00: 00 [facility] Abnormal maternal glucose tolerance, antepartum Abnormal maternal glucose tolerance, antepartum Disease Active 2021-02 2- 00:00: 00 [facility] Anemia of mother in , antepartum Anemia of mother in , antepartum Disease Active 2021-02 2-11 00:00: 00 [facility] Seizure disorder during in second trimester Seizure disorder during in second trimester Disease Active 8-05 00:00: 00 [facility] GBS (group B streptococ cus) UTI complicati ng GBS (group B streptococ cus) UTI complicati ng Disease Active 7-14 00:00: 00 Overview: Formattin g of this note might be different from the original. neg royal [facility] Supervisio n of high-risk Supervisio n of high-risk Disease Active 7-11 00:00: 00 [facility] History of miscarriag e History of miscarriag e Disease Active 7-11 00:00: 00 [facility] Autoimmune disorder Autoimmune disorder Disease Active 7-11 00:00: 00 Overview: Formattin g of this note might be different from the original. Reports was being screened for a disorder, but no official dx about 5 months agoRecord s received pt was seen for easy bruising it was recommend ed that pt be evaluated for rheumatol ogical/au toimmune issues [facility] History of seizure History of seizure Disease Active 09-02 00:00: 00 Overview: Formattin g of this note might be different from the original. Reports last episode was 2years ago [facility] Tobacco use in Tobacco use in Disease Active 09-02 00:00: 00 Overview: Formattin g of this note might be different from the original. Reports quit Months ago [facility] Allergies, Adverse Reactions, Alerts Allergy Name Allergy Type Status Severity Reaction(s) Onset Date Inactive Date Treating Clinician Comments Source No Known Allergie s DA Active U 2015-02 00:00: 00 [facility] NO KNOWN ALLERGIE S Drug Class Active [facility] Social History Social Habit Start Date Stop Date Quantity Comments Source ASSERTION 2022-08-13 00:00:00 [facility] Gender identity [facility] Sexual orientation [facility] History of tobacco use Cigarette Smoker [facility] Alcohol intake 2023-03-26 00:00:00 2023-03-26 00:00:00 Lifetime non-drinker (finding) [facility] History of Social function 2022-09-03 00:00:00 2022-09-03 00:00:00 [facility] Exposure to SARS-CoV-2 (event) 2022-07-01 00:00:00 2022-07-11 16:49:00 Not sure [facility] Tobacco use and exposure 2021-09-02 00:00:00 2021-09-02 00:00:00 Smokeless tobacco non-user [facility] Sex Assigned At 2000 00:00:00 2000 00:00:00 [facility] Smoking Status Start Date Stop Date Source Ex-smoker 2021-09-02 00:00:00 2021-09-02 00:00:00 U [facility] Medications Ordered Medication Name Filled Medication Name Start Date Stop Date Current Medication? Ordering Clinician Indication Dosage Frequency Signature (SIG) Comments Components Source Iron Fum & P-FA-Vit B & C No.9 (INTEGRA PLUS) 125 mg iron- 1 mg Cap 2024-0 1-17 00:00: 00 Yes [id number] 1{capsu le} Take 1 capsule by mouth in the morning. [facility] Iron Fum & P-FA-Vit B & C No.9 (INTEGRA PLUS) 125 mg iron- 1 mg Cap 2024-0 1-17 00:00: 00 Yes [id number] 1{capsu le} Take 1 capsule by mouth in the morning. [facility] Iron Fum & P-FA-Vit B & C No.9 (INTEGRA PLUS) 125 mg iron- 1 mg Cap 2024-0 1-17 00:00: 00 Yes [id number] 1{capsu le} Take 1 capsule by mouth in the morning. [facility] Iron Fum & P-FA-Vit B & C No.9 (INTEGRA PLUS) 125 mg iron- 1 mg Cap 2024-0 -17 00:00: 00 Yes [id number] 1{capsu le} Take 1 capsule by mouth in the morning. [facility] Iron Fum & P-FA-Vit B & C No.9 (INTEGRA PLUS) 125 mg iron- 1 mg Cap 4-0 -17 00:00: 00 Yes [id number] 1{capsu le} Take 1 capsule by mouth in the morning. [facility] Iron Fum & P-FA-Vit B & C No.9 (INTEGRA PLUS) 125 mg iron- 1 mg Cap 4-0 -17 00:00: 00 Yes [id number] 1{capsu le} Take 1 capsule by mouth in the morning. [facility] Iron Fum & P-FA-Vit B & C No.9 (INTEGRA PLUS) 125 mg iron- 1 mg Cap 4-0 -17 00:00: 00 Yes [id number] 1{capsu le} Take 1 capsule by mouth in the morning. [facility] HYDROcodone -acetaminop hen (NORCO 5) 5-325 mg tablet 1 tablet 07-11 22:00: 00 07-11 21:54 :00 No 1{tbl} 1 tablet, Oral, ONCE, 1 dose, On Thu07/11/22 at 1700, LUCITA [facility] amoxicillin 875 mg tablet 07-11 00:00: 00 07-19 04:59 :00 No [id number] 875mg Take 1 tablet by mouth in the morning and 1 tablet in the evening. Do all this for 7 days. [facility] ergocalcife rol, vitamin d2, 1,250 mcg (50,000 unit) capsule 06-12 00:00: 00 Yes [id number] Take 1 capsule by mouth weekly. [facility] ergocalcife rol, vitamin d2, 1,250 mcg (50,000 unit) capsule 06-12 00:00: 00 Yes [id number] Take 1 capsule by mouth weekly. [facility] ergocalcife rol, vitamin d2, 1,250 mcg (50,000 unit) capsule 06-12 00:00: 00 Yes [id number] Take 1 capsule by mouth weekly. [facility] ergocalcife rol, vitamin d2, 1,250 mcg (50,000 unit) capsule 06-12 00:00: 00 Yes [id number] Take 1 capsule by mouth weekly. [facility] ergocalcife rol, vitamin d2, 1,250 mcg (50,000 unit) capsule 06-12 00:00: 00 Yes [id number] Take 1 capsule by mouth weekly. [facility] ergocalcife rol, vitamin d2, 1,250 mcg (50,000 unit) capsule 0 06-12 00:00: 00 Yes [id number] Take 1 capsule by mouth weekly. [facility] ergocalcife rol, vitamin d2, 1,250 mcg (50,000 unit) capsule 0 06-12 00:00: 00 Yes [id number] Take 1 capsule by mouth weekly. [facility] ergocalcife rol, vitamin d2, 1,250 mcg (50,000 unit) capsule 0 06-12 00:00: 00 Yes [id number] Take 1 capsule by mouth weekly. [facility] ergocalcife rol, vitamin d2, 1,250 mcg (50,000 unit) capsule 0 06-12 00:00: 00 Yes [id number] Take 1 capsule by mouth weekly. [facility] ergocalcife rol, vitamin d2, 1,250 mcg (50,000 unit) capsule 0 06-12 00:00: 00 Yes [id number] Take 1 capsule by mouth weekly. [facility] ergocalcife rol, vitamin d2, 1,250 mcg (50,000 unit) capsule 0 06-12 00:00: 00 Yes [id number] Take 1 capsule by mouth weekly. [facility] ergocalcife rol, vitamin d2, 1,250 mcg (50,000 unit) capsule 06-12 00:00: 00 Yes [id number] Take 1 capsule by mouth weekly. [facility] ergocalcife rol, vitamin d2, 1,250 mcg (50,000 unit) capsule 0 06-12 00:00: 00 Yes [id number] Take 1 capsule by mouth weekly. [facility] ergocalcife rol, vitamin d2, 1,250 mcg (50,000 unit) capsule 06-12 00:00: 00 Yes [id number] Take 1 capsule by mouth weekly. [facility] ergocalcife rol, vitamin d2, 1,250 mcg (50,000 unit) capsule 20220 06-12 00:00: 00 Yes [id number] Take 1 capsule by mouth weekly. [facility] ergocalcife rol, vitamin d2, 1,250 mcg (50,000 unit) capsule 0 06-12 00:00: 00 Yes [id number] Take 1 capsule by mouth weekly. [facility] ergocalcife rol, vitamin d2, 1,250 mcg (50,000 unit) capsule 0 06-12 00:00: 00 Yes [id number] Take 1 capsule by mouth weekly. [facility] ergocalcife rol, vitamin d2, 1,250 mcg (50,000 unit) capsule 0 06-12 00:00: 00 Yes [id number] Take 1 capsule by mouth weekly. [facility] ergocalcife rol, vitamin d2, 1,250 mcg (50,000 unit) capsule 0 06-12 00:00: 00 Yes [id number] Take 1 capsule by mouth weekly. [facility] ergocalcife rol, vitamin d2, 1,250 mcg (50,000 unit) capsule 0 06-12 00:00: 00 Yes [id number] Take 1 capsule by mouth weekly. [facility] ergocalcife rol, vitamin d2, 1,250 mcg (50,000 unit) capsule 0 06-12 00:00: 00 Yes [id number] Take 1 capsule by mouth weekly. [facility] ergocalcife rol, vitamin d2, 1,250 mcg (50,000 unit) capsule 0 06-12 00:00: 00 Yes [id number] Take 1 capsule by mouth weekly. [facility] ergocalcife rol, vitamin d2, 1,250 mcg (50,000 unit) capsule 0 06-12 00:00: 00 Yes [id number] Take 1 capsule by mouth weekly. [facility] ergocalcife rol, vitamin d2, 1,250 mcg (50,000 unit) capsule 0 06-12 00:00: 00 Yes [id number] Take 1 capsule by mouth weekly. [facility] ergocalcife rol, vitamin d2, 1,250 mcg (50,000 unit) capsule 0 06-12 00:00: 00 Yes [id number] Take 1 capsule by mouth weekly. [facility] ergocalcife rol, vitamin d2, 1,250 mcg (50,000 unit) capsule 0 06-12 00:00: 00 Yes [id number] Take 1 capsule by mouth weekly. [facility] ergocalcife rol, vitamin d2, 1,250 mcg (50,000 unit) capsule 2022-0 06-12 00:00: 00 Yes [id number] Take 1 capsule by mouth weekly. [facility] ergocalcife rol, vitamin d2, 1,250 mcg (50,000 unit) capsule 0 06-12 00:00: 00 Yes [id number] Take 1 capsule by mouth weekly. [facility] ergocalcife rol, vitamin d2, 1,250 mcg (50,000 unit) capsule 0 06-12 00:00: 00 Yes [id number] Take 1 capsule by mouth weekly. [facility] ergocalcife rol, vitamin d2, 1,250 mcg (50,000 unit) capsule 0 06-12 00:00: 00 Yes [id number] Take 1 capsule by mouth weekly. [facility] ergocalcife rol, vitamin d2, 1,250 mcg (50,000 unit) capsule 0 06-12 00:00: 00 Yes [id number] Take 1 capsule by mouth weekly. [facility] ergocalcife rol, vitamin d2, 1,250 mcg (50,000 unit) capsule 0 06-12 00:00: 00 Yes [id number] Take 1 capsule by mouth weekly. [facility] ergocalcife rol, vitamin d2, 1,250 mcg (50,000 unit) capsule 0 06-12 00:00: 00 Yes [id number] Take 1 capsule by mouth weekly. [facility] ergocalcife rol, vitamin d2, 1,250 mcg (50,000 unit) capsule 20220 06-12 00:00: 00 Yes [id number] Take 1 capsule by mouth weekly. [facility] NIFEdipine XL 60 mg 24 hr tablet 0 05-12 00:00: 00 Yes [id number] 60mg Take 1 tablet by mouth every morning. [facility] NIFEdipine XL 60 mg 24 hr tablet 2022-0 05-12 00:00: 00 Yes [id number] 60mg Take 1 tablet by mouth every morning. [facility] NIFEdipine XL 60 mg 24 hr tablet 2022-0 05-12 00:00: 00 Yes [id number] 60mg Take 1 tablet by mouth every morning. [facility] NIFEdipine XL 60 mg 24 hr tablet 0 320 00:00: 00 Yes [id number] 60mg Take 1 tablet by mouth every morning. [facility] NIFEdipine XL 60 mg 24 hr tablet 0 320 00:00: 00 Yes [id number] 60mg Take 1 tablet by mouth every morning. [facility] NIFEdipine XL 60 mg 24 hr tablet 0 320 00:00: 00 Yes [id number] 60mg Take 1 tablet by mouth every morning. [facility] NIFEdipine XL 60 mg 24 hr tablet 0 20 00:00: 00 Yes [id number] 60mg Take 1 tablet by mouth every morning. [facility] NIFEdipine XL 60 mg 24 hr tablet 0 05-12 00:00: 00 Yes [id number] 60mg Take 1 tablet by mouth every morning. [facility] NIFEdipine XL 60 mg 24 hr tablet 0 05-12 00:00: 00 Yes [id number] 60mg Take 1 tablet by mouth every morning. [facility] NIFEdipine XL 60 mg 24 hr tablet 0 05-12 00:00: 00 Yes [id number] 60mg Take 1 tablet by mouth every morning. [facility] NIFEdipine XL 60 mg 24 hr tablet 0 05-12 00:00: 00 Yes [id number] 60mg Take 1 tablet by mouth every morning. [facility] NIFEdipine XL 60 mg 24 hr tablet 0 05-12 00:00: 00 Yes [id number] 60mg Take 1 tablet by mouth every morning. [facility] NIFEdipine XL 60 mg 24 hr tablet 0 20 00:00: 00 06-12 00:00 :00 No [id number] 60mg Take 1 tablet by mouth every morning. [facility] NIFEdipine XL 60 mg 24 hr tablet 0 20 00:00: 00 06-12 00:00 :00 No [id number] 60mg Take 1 tablet by mouth every morning. [facility] NIFEdipine XL 60 mg 24 hr tablet 2022-0 320 00:00: 00 06-12 00:00 :00 No [id number] 60mg Take 1 tablet by mouth every morning. [facility] NIFEdipine XL 60 mg 24 hr tablet 05-04 00:00: 00 05-12 00:00 :00 No 60mg Take 1 tablet by mouth every morning. [facility] NIFEdipine XL 60 mg 24 hr tablet 05-04 00:00: 00 05-12 00:00 :00 No 60mg Take 1 tablet by mouth every morning. [facility] ibuprofen (IBU) tablet 600 mg 04-26 18:00: 00 Yes 600mg 600 mg, Oral, Q6H, First dose (after last modificati on) on 04/26/22 at 1200, Until Discontinu ed, Routine [facility] ibuprofen (IBU) tablet 600 mg 04-26 18:00: 00 04-27 07:02 :59 No 600mg 600 mg, Oral, Q6H, First dose (after last modificati on) on 04/26/22 at 1200, Until Discontinu ed, Routine [facility] simethicone (GAS RELIEF (SIMETHICON E)) chewable tablet 160 mg 04-26 15:00: 00 Yes 160mg 160 mg, Oral, PC+HS, First dose (after last modificati on) on 04/26/22 at 0900, Until Discontinu ed, Routine [facility] simethicone (GAS RELIEF (SIMETHICON E)) chewable tablet 160 mg 04-26 15:00: 00 04-27 07:02 :59 No 160mg 160 mg, Oral, PC+HS, First dose (after last modificati on) on 04/26/22 at 0900, Until Discontinu ed, Routine [facility] vitamin w/FA tablet 04-26 00:00: 00 Yes [id number] 1{tbl} Take 1 tablet by mouth in the morning. [facility] docusate 100 mg capsule 04-26 00:00: 00 Yes [id number] 200mg Take 2 capsules by mouth once daily as needed for Constipati on. [facility] ferrous sulfate 325 mg (65 mg iron) tablet 2022-0 04-26 00:00: 00 Yes [id number] 325mg Take 1 tablet by mouth in the morning and 1 tablet in the evening. [facility] ibuprofen 600 mg tablet 2022-0 04-26 00:00: 00 Yes [id number] 600mg Take 1 tablet by mouth every 6 (six) hours as needed (Pain). Take with food or milk. [facility] vitamin w/FA tablet 2022-0 04-26 00:00: 00 Yes [id number] 1{tbl} Take 1 tablet by mouth in the morning. [facility] docusate 100 mg capsule 2022-0 04-26 00:00: 00 Yes [id number] 200mg Take 2 capsules by mouth once daily as needed for Constipati on. [facility] ferrous sulfate 325 mg (65 mg iron) tablet 2022-0 04-26 00:00: 00 Yes [id number] 325mg Take 1 tablet by mouth in the morning and 1 tablet in the evening. [facility] ibuprofen 600 mg tablet 0 04-26 00:00: 00 Yes [id number] 600mg Take 1 tablet by mouth every 6 (six) hours as needed (Pain). Take with food or milk. [facility] vitamin w/FA tablet 2022-0 04-26 00:00: 00 Yes [id number] 1{tbl} Take 1 tablet by mouth in the morning. [facility] docusate 100 mg capsule 2022-0 04-26 00:00: 00 Yes [id number] 200mg Take 2 capsules by mouth once daily as needed for Constipati on. [facility] ferrous sulfate 325 mg (65 mg iron) tablet 2022-0 04-26 00:00: 00 Yes [id number] 325mg Take 1 tablet by mouth in the morning and 1 tablet in the evening. [facility] ibuprofen 600 mg tablet 2022-0 04-26 00:00: 00 Yes [id number] 600mg Take 1 tablet by mouth every 6 (six) hours as needed (Pain). Take with food or milk. [facility] vitamin w/FA tablet 2022-04-26 00:00: 00 Yes [id number] 1{tbl} Take 1 tablet by mouth in the morning. [facility] docusate 100 mg capsule 2022-0 04-26 00:00: 00 Yes [id number] 200mg Take 2 capsules by mouth once daily as needed for Constipati on. [facility] ferrous sulfate 325 mg (65 mg iron) tablet 04-26 00:00: 00 Yes [id number] 325mg Take 1 tablet by mouth in the morning and 1 tablet in the evening. [facility] ibuprofen 600 mg tablet 04-26 00:00: 00 Yes [id number] 600mg Take 1 tablet by mouth every 6 (six) hours as needed (Pain). Take with food or milk. [facility] vitamin w/FA tablet 04-26 00:00: 00 Yes [id number] 1{tbl} Take 1 tablet by mouth in the morning. [facility] docusate 100 mg capsule 04-26 00:00: 00 Yes [id number] 200mg Take 2 capsules by mouth once daily as needed for Constipati on. [facility] ferrous sulfate 325 mg (65 mg iron) tablet 04-26 00:00: 00 Yes [id number] 325mg Take 1 tablet by mouth in the morning and 1 tablet in the evening. [facility] ibuprofen 600 mg tablet 04-26 00:00: 00 Yes [id number] 600mg Take 1 tablet by mouth every 6 (six) hours as needed (Pain). Take with food or milk. [facility] vitamin w/FA tablet 04-26 00:00: 00 Yes [id number] 1{tbl} Take 1 tablet by mouth in the morning. [facility] docusate 100 mg capsule 0 04-26 00:00: 00 Yes [id number] 200mg Take 2 capsules by mouth once daily as needed for Constipati on. [facility] ferrous sulfate 325 mg (65 mg iron) tablet 2022-0 04-26 00:00: 00 Yes [id number] 325mg Take 1 tablet by mouth in the morning and 1 tablet in the evening. [facility] ibuprofen 600 mg tablet 2022-0 04-26 00:00: 00 Yes [id number] 600mg Take 1 tablet by mouth every 6 (six) hours as needed (Pain). Take with food or milk. [facility] vitamin w/FA tablet 2022-0 -04 00:00: 00 Yes [id number] 1{tbl} Take 1 tablet by mouth in the morning. [facility] docusate 100 mg capsule 2022-0 - 00:00: 00 Yes [id number] 200mg Take 2 capsules by mouth once daily as needed for Constipati on. [facility] ferrous sulfate 325 mg (65 mg iron) tablet 2022-0 - 00:00: 00 Yes [id number] 325mg Take 1 tablet by mouth in the morning and 1 tablet in the evening. [facility] ibuprofen 600 mg tablet 2022-0 04-26 00:00: 00 Yes [id number] 600mg Take 1 tablet by mouth every 6 (six) hours as needed (Pain). Take with food or milk. [facility] vitamin w/FA tablet 2022-0 04-26 00:00: 00 Yes [id number] 1{tbl} Take 1 tablet by mouth in the morning. [facility] docusate 100 mg capsule 2022-0 04-26 00:00: 00 Yes [id number] 200mg Take 2 capsules by mouth once daily as needed for Constipati on. [facility] ferrous sulfate 325 mg (65 mg iron) tablet 2022-0 04 00:00: 00 Yes [id number] 325mg Take 1 tablet by mouth in the morning and 1 tablet in the evening. [facility] ibuprofen 600 mg tablet 2022-0 - 00:00: 00 Yes [id number] 600mg Take 1 tablet by mouth every 6 (six) hours as needed (Pain). Take with food or milk. [facility] docusate 100 mg capsule 2022-0 -04 00:00: 00 Yes [id number] 200mg Take 2 capsules by mouth once daily as needed for Constipati on. [facility] ferrous sulfate 325 mg (65 mg iron) tablet 2022-0 04-26 00:00: 00 Yes [id number] 325mg Take 1 tablet by mouth in the morning and 1 tablet in the evening. [facility] ibuprofen 600 mg tablet 2022-0 04-26 00:00: 00 Yes [id number] 600mg Take 1 tablet by mouth every 6 (six) hours as needed (Pain). Take with food or milk. [facility] docusate 100 mg capsule 2022-0 04-26 00:00: 00 Yes [id number] 200mg Take 2 capsules by mouth once daily as needed for Constipati on. [facility] ferrous sulfate 325 mg (65 mg iron) tablet 2022-0 04-26 00:00: 00 Yes [id number] 325mg Take 1 tablet by mouth in the morning and 1 tablet in the evening. [facility] ibuprofen 600 mg tablet 2022-0 04-26 00:00: 00 Yes [id number] 600mg Take 1 tablet by mouth every 6 (six) hours as needed (Pain). Take with food or milk. [facility] docusate 100 mg capsule 2022-0 04-26 00:00: 00 Yes [id number] 200mg Take 2 capsules by mouth once daily as needed for Constipati on. [facility] ferrous sulfate 325 mg (65 mg iron) tablet 2022-0 04-26 00:00: 00 Yes [id number] 325mg Take 1 tablet by mouth in the morning and 1 tablet in the evening. [facility] ibuprofen 600 mg tablet 2022-0 04-26 00:00: 00 Yes [id number] 600mg Take 1 tablet by mouth every 6 (six) hours as needed (Pain). Take with food or milk. [facility] docusate 100 mg capsule 2022-0 04-26 00:00: 00 Yes [id number] 200mg Take 2 capsules by mouth once daily as needed for Constipati on. [facility] ferrous sulfate 325 mg (65 mg iron) tablet 2022-0 04-26 00:00: 00 Yes [id number] 325mg Take 1 tablet by mouth in the morning and 1 tablet in the evening. [facility] ibuprofen 600 mg tablet 3-0 3-04 00:00: 00 Yes [id number] 600mg Take 1 tablet by mouth every 6 (six) hours as needed (Pain). Take with food or milk. [facility] docusate 100 mg capsule 3-0 3-04 00:00: 00 Yes [id number] 200mg Take 2 capsules by mouth once daily as needed for Constipati on. [facility] ferrous sulfate 325 mg (65 mg iron) tablet 2022-0 -04 00:00: 00 Yes [id number] 325mg Take 1 tablet by mouth in the morning and 1 tablet in the evening. [facility] ibuprofen 600 mg tablet 2022-0 -04 00:00: 00 Yes [id number] 600mg Take 1 tablet by mouth every 6 (six) hours as needed (Pain). Take with food or milk. [facility] docusate 100 mg capsule 2022-0 04 00:00: 00 Yes [id number] 200mg Take 2 capsules by mouth once daily as needed for Constipati on. [facility] ferrous sulfate 325 mg (65 mg iron) tablet 2022-0 -04 00:00: 00 Yes [id number] 325mg Take 1 tablet by mouth in the morning and 1 tablet in the evening. [facility] ibuprofen 600 mg tablet 3-0 -04 00:00: 00 Yes [id number] 600mg Take 1 tablet by mouth every 6 (six) hours as needed (Pain). Take with food or milk. [facility] docusate 100 mg capsule 2022-0 -04 00:00: 00 Yes [id number] 200mg Take 2 capsules by mouth once daily as needed for Constipati on. [facility] ferrous sulfate 325 mg (65 mg iron) tablet 2022-0 3-04 00:00: 00 Yes [id number] 325mg Take 1 tablet by mouth in the morning and 1 tablet in the evening. [facility] ibuprofen 600 mg tablet 3-0 3-04 00:00: 00 Yes [id number] 600mg Take 1 tablet by mouth every 6 (six) hours as needed (Pain). Take with food or milk. [facility] docusate 100 mg capsule 04-26 00:00: 00 Yes [id number] 200mg Take 2 capsules by mouth once daily as needed for Constipati on. [facility] ferrous sulfate 325 mg (65 mg iron) tablet 04-26 00:00: 00 Yes [id number] 325mg Take 1 tablet by mouth in the morning and 1 tablet in the evening. [facility] ibuprofen 600 mg tablet 04-26 00:00: 00 Yes [id number] 600mg Take 1 tablet by mouth every 6 (six) hours as needed (Pain). Take with food or milk. [facility] ferrous sulfate 325 mg (65 mg iron) tablet 04-26 00:00: 00 Yes [id number] 325mg Take 1 tablet by mouth in the morning and 1 tablet in the evening. [facility] ferrous sulfate 325 mg (65 mg iron) tablet 04-26 00:00: 00 Yes [id number] 325mg Take 1 tablet by mouth in the morning and 1 tablet in the evening. [facility] ferrous sulfate 325 mg (65 mg iron) tablet 04-26 00:00: 00 Yes [id number] 325mg Take 1 tablet by mouth in the morning and 1 tablet in the evening. [facility] ferrous sulfate 325 mg (65 mg iron) tablet 04-26 00:00: 00 Yes [id number] 325mg Take 1 tablet by mouth in the morning and 1 tablet in the evening. [facility] ferrous sulfate 325 mg (65 mg iron) tablet 04-26 00:00: 00 Yes [id number] 325mg Take 1 tablet by mouth in the morning and 1 tablet in the evening. [facility] ferrous sulfate 325 mg (65 mg iron) tablet 04-26 00:00: 00 Yes [id number] 325mg Take 1 tablet by mouth in the morning and 1 tablet in the evening. [facility] ferrous sulfate 325 mg (65 mg iron) tablet 04-26 00:00: 00 Yes [id number] 325mg Take 1 tablet by mouth in the morning and 1 tablet in the evening. [facility] ferrous sulfate 325 mg (65 mg iron) tablet 04-26 00:00: 00 Yes [id number] 325mg Take 1 tablet by mouth in the morning and 1 tablet in the evening. [facility] ferrous sulfate 325 mg (65 mg iron) tablet 04-26 00:00: 00 Yes [id number] 325mg Take 1 tablet by mouth in the morning and 1 tablet in the evening. [facility] ferrous sulfate 325 mg (65 mg iron) tablet 04-26 00:00: 00 Yes [id number] 325mg Take 1 tablet by mouth in the morning and 1 tablet in the evening. [facility] ferrous sulfate 325 mg (65 mg iron) tablet 04-26 00:00: 00 Yes [id number] 325mg Take 1 tablet by mouth in the morning and 1 tablet in the evening. [facility] ferrous sulfate 325 mg (65 mg iron) tablet 04-26 00:00: 00 Yes [id number] 325mg Take 1 tablet by mouth in the morning and 1 tablet in the evening. [facility] ferrous sulfate 325 mg (65 mg iron) tablet 04-26 00:00: 00 Yes [id number] 325mg Take 1 tablet by mouth in the morning and 1 tablet in the evening. [facility] ferrous sulfate 325 mg (65 mg iron) tablet 0 04-26 00:00: 00 Yes [id number] 325mg Take 1 tablet by mouth in the morning and 1 tablet in the evening. [facility] ferrous sulfate 325 mg (65 mg iron) tablet 0 04-26 00:00: 00 Yes [id number] 325mg Take 1 tablet by mouth in the morning and 1 tablet in the evening. [facility] ferrous sulfate 325 mg (65 mg iron) tablet 0 04-26 00:00: 00 Yes [id number] 325mg Take 1 tablet by mouth in the morning and 1 tablet in the evening. [facility] ferrous sulfate 325 mg (65 mg iron) tablet 0 04-26 00:00: 00 Yes [id number] 325mg Take 1 tablet by mouth in the morning and 1 tablet in the evening. [facility] ferrous sulfate 325 mg (65 mg iron) tablet 0 04-26 00:00: 00 Yes [id number] 325mg Take 1 tablet by mouth in the morning and 1 tablet in the evening. [facility] ferrous sulfate 325 mg (65 mg iron) tablet 0 04-26 00:00: 00 Yes [id number] 325mg Take 1 tablet by mouth in the morning and 1 tablet in the evening. [facility] ferrous sulfate 325 mg (65 mg iron) tablet 0 04-26 00:00: 00 Yes [id number] 325mg Take 1 tablet by mouth in the morning and 1 tablet in the evening. [facility] ferrous sulfate 325 mg (65 mg iron) tablet 0 04-26 00:00: 00 Yes [id number] 325mg Take 1 tablet by mouth in the morning and 1 tablet in the evening. [facility] ferrous sulfate 325 mg (65 mg iron) tablet 0 04-26 00:00: 00 Yes [id number] 325mg Take 1 tablet by mouth in the morning and 1 tablet in the evening. [facility] ferrous sulfate 325 mg (65 mg iron) tablet 0 04-26 00:00: 00 Yes [id number] 325mg Take 1 tablet by mouth in the morning and 1 tablet in the evening. [facility] ferrous sulfate 325 mg (65 mg iron) tablet 0 04-26 00:00: 00 Yes [id number] 325mg Take 1 tablet by mouth in the morning and 1 tablet in the evening. [facility] ferrous sulfate 325 mg (65 mg iron) tablet 2022-0 04-26 00:00: 00 Yes [id number] 325mg Take 1 tablet by mouth in the morning and 1 tablet in the evening. [facility] ferrous sulfate 325 mg (65 mg iron) tablet 2022-0 04-26 00:00: 00 Yes [id number] 325mg Take 1 tablet by mouth in the morning and 1 tablet in the evening. [facility] ferrous sulfate 325 mg (65 mg iron) tablet 04-26 00:00: 00 Yes [id number] 325mg Take 1 tablet by mouth in the morning and 1 tablet in the evening. [facility] ferrous sulfate 325 mg (65 mg iron) tablet 04-26 00:00: 00 Yes [id number] 325mg Take 1 tablet by mouth in the morning and 1 tablet in the evening. [facility] vitamin w/FA tablet 04-26 00:00: 00 Yes [id number] 1{tbl} Take 1 tablet by mouth in the morning. [facility] docusate 100 mg capsule 04-26 00:00: 00 Yes [id number] 200mg Take 2 capsules by mouth once daily as needed for Constipati on. [facility] ferrous sulfate 325 mg (65 mg iron) tablet 04-26 00:00: 00 Yes [id number] 325mg Take 1 tablet by mouth in the morning and 1 tablet in the evening. [facility] ibuprofen 600 mg tablet 04-26 00:00: 00 Yes [id number] 600mg Take 1 tablet by mouth every 6 (six) hours as needed (Pain). Take with food or milk. [facility] ferrous sulfate 325 mg (65 mg iron) tablet 04-26 00:00: 00 03-11 00:00 :00 No [id number] 325mg Take 1 tablet by mouth in the morning and 1 tablet in the evening. [facility] docusate 100 mg capsule 04-26 00:00: 00 06-12 00:00 :00 No [id number] 200mg Take 2 capsules by mouth once daily as needed for Constipati on. [facility] ibuprofen 600 mg tablet 04-26 00:00: 00 06-12 00:00 :00 No [id number] 600mg Take 1 tablet by mouth every 6 (six) hours as needed (Pain). Take with food or milk. [facility] docusate 100 mg capsule 04-26 00:00: 00 06-12 00:00 :00 No [id number] 200mg Take 2 capsules by mouth once daily as needed for Constipati on. [facility] ibuprofen 600 mg tablet 3-04 00:00: 00 06-12 00:00 :00 No [id number] 600mg Take 1 tablet by mouth every 6 (six) hours as needed (Pain). Take with food or milk. [facility] docusate 100 mg capsule 3- 00:00: 00 06-12 00:00 :00 No [id number] 200mg Take 2 capsules by mouth once daily as needed for Constipati on. [facility] ibuprofen 600 mg tablet - 00:00: 00 06-12 00:00 :00 No [id number] 600mg Take 1 tablet by mouth every 6 (six) hours as needed (Pain). Take with food or milk. [facility] vitamin w/FA tablet 3-04 00:00: 00 05-23 00:00 :00 No [id number] 1{tbl} Take 1 tablet by mouth in the morning. [facility] vitamin w/FA tablet 3-04 00:00: 00 05-23 00:00 :00 No [id number] 1{tbl} Take 1 tablet by mouth in the morning. [facility] vitamin w/FA tablet 3-04 00:00: 00 05-23 00:00 :00 No [id number] 1{tbl} Take 1 tablet by mouth in the morning. [facility] HYDROcodone -acetaminop hen 5-325 mg tablet 3-04 00:00: 00 05-04 05:59 :00 No [id number] 1{tbl} Take 1 tablet by mouth every 6 (six) hours as needed for Pain (scale 7-10) or Pain (scale 4-6) (Pain scale above 4) for up to 7 days. Do not exceed 3 grams of acetaminop hen in 24 hours. Indication s: acute pain [facility] HYDROcodone -acetaminop hen 5-325 mg tablet 04-26 00:00: 00 05-04 05:59 :00 No [id number] 1{tbl} Take 1 tablet by mouth every 6 (six) hours as needed for Pain (scale 7-10) or Pain (scale 4-6) (Pain scale above 4) for up to 7 days. Do not exceed 3 grams of acetaminop hen in 24 hours. Indication s: acute pain [facility] HYDROcodone -acetaminop hen 5-325 mg tablet 04-26 00:00: 00 05-04 05:59 :00 No [id number] 1{tbl} Take 1 tablet by mouth every 6 (six) hours as needed for Pain (scale 7-10) or Pain (scale 4-6) (Pain scale above 4) for up to 7 days. Do not exceed 3 grams of acetaminop hen in 24 hours. Indication s: acute pain [facility] HYDROcodone -acetaminop hen 5-325 mg tablet 04-26 00:00: 00 05-04 05:59 :00 No [id number] 1{tbl} Take 1 tablet by mouth every 6 (six) hours as needed for Pain (scale 7-10) or Pain (scale 4-6) (Pain scale above 4) for up to 7 days. Do not exceed 3 grams of acetaminop hen in 24 hours. Indication s: acute pain [facility] sennosides (SENOKOT) tablet 8.6 mg 04-25 15:00: 00 Yes 8.6mg 8.6 mg, Oral, DAILY, First dose on Thu04/25/22 at 0900, Until Discontinu ed, Routine [facility] docusate (COLACE) capsule 100 mg 04-25 15:00: 00 Yes 100mg 100 mg, Oral, DAILY, First dose on Thu04/25/22 at 0900, Until Discontinu ed, Routine [facility] sennosides (SENOKOT) tablet 8.6 mg 04-25 15:00: 00 04-27 07:02 :59 No 8.6mg 8.6 mg, Oral, DAILY, First dose on Thu04/25/22 at 0900, Until Discontinu ed, Routine [facility] docusate (COLACE) capsule 100 mg 04-25 15:00: 00 04-27 07:02 :59 No 100mg 100 mg, Oral, DAILY, First dose on Thu04/25/22 at 0900, Until Discontinu ed, Routine [facility] rho(D) immune globulin (RHOGAM) syringe 300 mcg 04-25 12:55: 41 Yes 300ug 300 mcg, Intramuscu lar, ONCE, For 1 dose, Conditiona l, Routine [facility] rho(D) immune globulin (RHOGAM) syringe 300 mcg 04-25 12:55: 41 04-27 07:02 :59 No 300ug 300 mcg, Intramuscu lar, ONCE, For 1 dose, Conditiona l, Routine [facility] magnesium hydroxide (MILK OF MAGNESIA) 400 mg/5 mL suspension 30 mL 04-25 12:55: 37 Yes 30mL 30 mL, Oral, QDAILYPRN, Starting on Thu04/25/22 at 0655, Until Discontinu ed, Routine, Constipati on [facility] lactated ringers IV infusion 1,000 mL 04-25 12:55: 37 Yes 1000mL at 125 mL/hr, 1,000 mL, IV Infusion, PRN, 1 dose, Starting on Thu04/25/22 at 0655, Until Discontinu ed, Routine [facility] HYDROcodone -acetaminop hen (NORCO 5) 5-325 mg tablet 2 tablet 04-25 12:55: 37 Yes 2{tbl} 2 tablet, Oral, Q6HPRN, Starting on Thu04/25/22 at 0655, Until Discontinu ed, Routine, Pain (scale 7-10), Alternate with Ibuprofen [facility] HYDROcodone -acetaminop hen (NORCO 5) 5-325 mg tablet 1 tablet 04-25 12:55: 37 Yes 1{tbl} 1 tablet, Oral, Q6HPRN, Starting on Thu04/25/22 at 0655, Until Discontinu ed, Routine, Pain (scale 4-6), Alternate with Ibuprofen [facility] diphenhydrA MINE (BENADRYL) injection 25 mg 04-25 12:55: 37 Yes 25mg 25 mg, Slow IV Push, Q6HPRN, Starting on Thu04/25/22 at 0655, Until Discontinu ed, Routine, Itching [facility] diphenhydrA MINE (BENADRYL) tablet 25 mg 04-25 12:55: 37 Yes 25mg 25 mg, Oral, Q6HPRN, Starting on Thu04/25/22 at 0655, Until Discontinu ed, Routine, Sleep, Itching [facility] ondansetron (ZOFRAN (PF)) injection 4 mg 04-25 12:55: 37 Yes 4mg 4 mg, Slow IV Push, Q8HPRN, Starting on Thu04/25/22 at 0655, Until Discontinu ed, Routine, Nausea and Vomiting (N/V) [facility] bisacodyL (DULCOLAX) suppository 10 mg 04-25 12:55: 37 Yes 10mg 10 mg, Rectal, QDAILYPRN, Starting on Thu04/25/22 at 0655, Until Discontinu ed, Routine, Constipati on [facility] docusate (COLACE) capsule 200 mg 04-25 12:55: 37 Yes 200mg 200 mg, Oral, QDAILYPRN, Starting on Thu04/25/22 at 0655, Until Discontinu ed, Routine, Constipati on [facility] HYDROcodone -acetaminop hen (NORCO 5) 5-325 mg tablet 2 tablet 04-25 12:55: 37 04-27 07:02 :59 No 2{tbl} 2 tablet, Oral, Q6HPRN, Starting on Thu04/25/22 at 0655, Until Thu04/27/22 at 0102, Routine, Pain (scale 7-10), Alternate with Ibuprofen [facility] HYDROcodone -acetaminop hen (NORCO 5) 5-325 mg tablet 1 tablet 04-25 12:55: 37 04-27 07:02 :59 No 1{tbl} 1 tablet, Oral, Q6HPRN, Starting on Thu04/25/22 at 0655, Until 04/27/22 at 0102, Routine, Pain (scale 4-6), Alternate with Ibuprofen [facility] diphenhydrA MINE (BENADRYL) injection 25 mg 04-25 12:55: 37 04-27 07:02 :59 No 25mg 25 mg, Slow IV Push, Q6HPRN, Starting on Thu04/25/22 at 0655, Until 04/27/22 at 0102, Routine, Itching [facility] diphenhydrA MINE (BENADRYL) tablet 25 mg 04-25 12:55: 37 04-27 07:02 :59 No 25mg 25 mg, Oral, Q6HPRN, Starting on Thu04/25/22 at 0655, Until Thu04/27/22 at 0102, Routine, Sleep, Itching [facility] ondansetron (ZOFRAN (PF)) injection 4 mg 04-25 12:55: 37 04-27 07:02 :59 No 4mg 4 mg, Slow IV Push, Q8HPRN, Starting on Thu04/25/22 at 0655, Until 04/27/22 at 0102, Routine, Nausea and Vomiting (N/V) [facility] bisacodyL (DULCOLAX) suppository 10 mg 04-25 12:55: 37 04-27 07:02 :59 No 10mg 10 mg, Rectal, QDAILYPRN, Starting on Thu04/25/22 at 0655, Until 04/27/22 at 0102, Routine, Constipati on [facility] docusate (COLACE) capsule 200 mg 04-25 12:55: 37 04-27 07:02 :59 No 200mg 200 mg, Oral, QDAILYPRN, Starting on Thu04/25/22 at 0655, Until 04/27/22 at 0102, Routine, Constipati on [facility] magnesium hydroxide (MILK OF MAGNESIA) 400 mg/5 mL suspension 30 mL 04-25 12:55: 37 04-27 07:02 :59 No 30mL 30 mL, Oral, QDAILYPRN, Starting on Thu04/25/22 at 0655, Until 04/27/22 at 0102, Routine, Constipati on [facility] lactated ringers IV infusion 1,000 mL 04-25 12:55: 37 04-27 07:02 :59 No 1000mL at 125 mL/hr, 1,000 mL, IV Infusion, PRN, 1 dose, Starting on Thu04/25/22 at 0655, Until 04/27/22 at 0102, Routine [facility] ibuprofen (IBU) tablet 600 mg 04-25 12:55: 37 04-26 14:14 :37 No 600mg 600 mg, Oral, Q6HPRN, Starting on Thu04/25/22 at 0655, Until 04/26/22 at 0814, Routine, Pain (scale 1-3) [facility] simethicone (GAS RELIEF (SIMETHICON E)) chewable tablet 160 mg 04-25 12:55: 37 04-26 14:14 :37 No 160mg 160 mg, Oral, PC+HSPRN, Starting on Thu04/25/22 at 0655, Until 04/26/22 at 0814, Routine, Gas [facility] acetaminoph en ADULT (OFIRMEV) injection 1,000 mg 04-25 11:00: 00 04-25 10:38 :00 No 1000mg 1,000 mg, IV Infusion, at 400 mL/hr Administer over 15 Minutes, ONCE, 1 dose, On Thu04/25/22 at 0500, Routine
Indicatio n: Perioperat [place] Patient [facility] morpHINE 30 mg/30 mL (fixed dose) RN CONCURRENT REVIEW injection 04-25 10:45: 00 Yes Patient Bolus Dose: 1 mg
Lock out Interval: 10 Minutes
Basal Rate: 0 mg/hr
F Hour Dose Limit: 20 mg
Intr avenous, 30 mL, CONTINUOUS , Starting on Thu04/25/22 at 0445, Until Discontinu ed [facility] morpHINE 30 mg/30 mL (fixed dose) RN CONCURRENT REVIEW injection 04-25 10:45: 00 04-27 07:02 :59 No Patient Bolus Dose: 1 mg
Lock out Interval: 10 Minutes
Basal Rate: 0 mg/hr
F Hour Dose Limit: 20 mg
Intr avenous, 30 mL, CONTINUOUS , Starting on Thu04/25/22 at 0445, Until Thu04/27/22 at 0102 [facility] lactated ringers IV infusion 1,000 mL 04-25 09:45: 00 Yes 1000mL at 75 mL/hr, 1,000 mL, IV Infusion, CONTINUOUS , Starting on Thu04/25/22 at 0345, Until Discontinu ed, Routine, PACU [facility] lactated ringers IV infusion 1,000 mL 04-25 09:45: 00 04-27 07:02 :59 No 1000mL at 75 mL/hr, 1,000 mL, IV Infusion, CONTINUOUS , Starting on Thu04/25/22 at 0345, Until Thu04/27/22 at 0102, Routine, PACU [facility] naloxone (NARCAN) injection 0.1 mg 04-25 09:39: 13 Yes .1mg 0.1 mg, Slow IV Push, SEE-INSTRU CTIONS, Starting on Thu04/25/22 at 0339, Until Discontinu ed, Routine [facility] morpHINE 2 mg/mL LOAD & RESCUE INJECTION SYRG 04-25 09:39: 13 Yes Slow IV Push, Routine [facility] naloxone (NARCAN) injection 0.1 mg 04-25 09:39: 13 04-27 07:02 :59 No .1mg 0.1 mg, Slow IV Push, SEE-INSTRU CTIONS, Starting on Thu04/25/22 at 0339, Until Thu04/27/22 at 0102, Routine [facility] morpHINE 2 mg/mL LOAD & RESCUE INJECTION SYRG 04-25 09:39: 13 04-27 07:02 :59 No Slow IV Push, Routine [facility] HYDROmorpho ne (DILAUDID) injection 0.2 mg 04-25 09:36: 53 Yes .2mg 0.2 mg, Slow IV Push, Q5MIN PRN, 10 doses, Starting on Thu04/25/22 at 0336, Until Discontinu ed, Routine, Pain (scale 7-10), PACU
Us e approved by (Faculty): PA[employer] [facility] FENTanyl PF (SUBLIMAZE (PF)) injection 25 mcg 04-25 09:36: 53 Yes 25ug 25 mcg, Slow IV Push, Q5MIN PRN, 4 doses, Starting on Thu04/25/22 at 0336, Until Discontinu ed, Routine, Pain (scale 4-6), PACU [facility] ondansetron (ZOFRAN (PF)) injection 4 mg 04-25 09:36: 53 Yes 4mg 4 mg, Slow IV Push, PRN, 1 dose, Starting on Thu04/25/22 at 0336, Until Discontinu ed, Routine, Nausea and Vomiting (N/V), PACU [facility] HYDROmorpho ne (DILAUDID) injection 0.2 mg 04-25 09:36: 53 04-27 07:02 :59 No .2mg 0.2 mg, Slow IV Push, Q5MIN PRN, 10 doses, Starting on Thu04/25/22 at 0336, Until 04/27/22 at 0102, Routine, Pain (scale 7-10), PACU
Us e approved by (Faculty): [facility] [employer] [facility] FENTanyl PF (SUBLIMAZE (PF)) injection 25 mcg 04-25 09:36: 53 04-27 07:02 :59 No 25ug 25 mcg, Slow IV Push, Q5MIN PRN, 4 doses, Starting on Thu04/25/22 at 0336, Until Thu04/27/22 at 0102, Routine, Pain (scale 4-6), PACU [facility] ondansetron (ZOFRAN (PF)) injection 4 mg 04-25 09:36: 53 04-27 07:02 :59 No 4mg 4 mg, Slow IV Push, PRN, 1 dose, Starting on Thu04/25/22 at 0336, Until Thu04/27/22 at 0102, Routine, Nausea and Vomiting (N/V), PACU [facility] HYDROcodone -acetaminop hen (NORCO) 10-325 mg tablet 1 tablet 04-25 08:43: 05 Yes 1{tbl} 1 tablet, Oral, Q6HPRN, 1 dose, Starting on Thu04/25/22 at 0243, Until Discontinu ed, Routine, Pain (scale 7-10) [facility] HYDROcodone -acetaminop hen (NORCO) 10-325 mg tablet 1 tablet 04-25 08:43: 05 04-27 07:02 :59 No 1{tbl} 1 tablet, Oral, Q6HPRN, 1 dose, Starting on Thu04/25/22 at 024, Until Thu04/27/22 at 010, Routine, Pain (scale 7-10) [facility] HYDROcodone -acetaminop hen (NORCO 5) 5-325 mg tablet 1 tablet 04-25 08:43: 04 Yes 1{tbl} 1 tablet, Oral, Q6HPRN, 1 dose, Starting on Thu04/25/22 at 0243, Until Discontinu ed, Routine, Pain (scale 4-6) [facility] HYDROcodone -acetaminop hen (NORCO 5) 5-325 mg tablet 1 tablet 04-25 08:43: 04 04-27 07:02 :59 No 1{tbl} 1 tablet, Oral, Q6HPRN, 1 dose, Starting on Thu04/25/22 at 0243, Until Thu04/27/22 at 0102, Routine, Pain (scale 4-6) [facility] oxytocin (PITOCIN) 30 units in NS 500 mL IV infusion 04-25 08:42: 46 Yes 600mL/h 600 mL/hr, IV Infusion, PRN, For post delivery uterine atony., Starting on Thu04/25/[address] at 600 mL/hr for 1 hr then 150 mL/hr for 1 hr.
[facility] oxytocin (PITOCIN) 30 units in NS 500 mL IV infusion 04-25 08:42: 46 Yes 300mL/h 300 mL/hr, IV Infusion, SEE-INSTRU CTIONS, Starting on Thu04/25/[address] at 300 mL/hr for 1 hr then 150 mL/hr for 1 hr. & nbsp; For post delivery uterotonic
[facility] oxytocin (PITOCIN) 30 units in NS 500 mL IV infusion 04-25 08:42: 46 04-27 07:02 :59 No 600mL/h 600 mL/hr, IV Infusion, PRN, For post delivery uterine atony., Starting on Thu04/25/[address] at 600 mL/hr for 1 hr then 150 mL/hr for 1 hr.
[facility] oxytocin (PITOCIN) 30 units in NS 500 mL IV infusion 04-25 08:42: 46 04-27 07:02 :59 No 300mL/h 300 mL/hr, IV Infusion, SEE-INSTRU CTIONS, Starting on Thu04/25/[address] at 300 mL/hr for 1 hr then 150 mL/hr for 1 hr. & nbsp; For post delivery uterotonic
[facility] sodium citrate-cit batool acid (BICITRA) 500-334 mg/5 mL solution 30 mL 04-25 08:34: 08 Yes 30mL 30 mL, Oral, PRE-PROCED URE ONCE, 1 dose, Starting on Thu04/25/22 at 0234, Until Discontinu ed, Routine, Surgery [facility] sodium citrate-cit batool acid (BICITRA) 500-334 mg/5 mL solution 30 mL 04-25 08:34: 08 04-27 07:02 :59 No 30mL 30 mL, Oral, PRE-PROCED URE ONCE, 1 dose, Starting on Thu04/25/22 at 0234, Until Thu04/27/22 at 0102, Routine, Surgery [facility] terbutaline (BRETHINE) injection 0.25 mg 04-25 06:42: 00 04-25 06:42 :00 No .25mg 0.25 mg, Subcutaneo us, ONCE, 1 dose, On Thu04/25/22 at 0045, Routine [facility] ropivacaine 0.2 % (NAROPIN (PF)) epidural infusion 04-25 06:40: 00 Yes Epidural, CONTINUOUS PRN, Starting on Thu04/25/22 at 0040, Until Discontinu ed, Routine, Intra-op [facility] fentaNYL-ro pivacaine 2 mcg/mL-0.1 % (PF) in NS 200 mL epidural infusion RTU 04-24 17:33: 00 Yes Epidural, CONTINUOUS PRN, Starting on Lorri 04/24/22 at 1133, Until Discontinu ed, Routine, Intra-op [facility] lidocaine-e pinephrine (XYLOCAINE W/EPINEPHRI NE) 1.5 %-1:200,000 injection 04-24 17:30: 00 Yes Intraderma l, ONCE INTRA PROCEDURE, Starting on Lorri 04/24/22 at 1130, Until Discontinu ed, Routine, Intra-op [facility] oxytocin (PITOCIN) 30 units in NS 500 mL IV infusion 04-24 15:36: 22 Yes 2mU/min at 2-40 mL/hr, IV Infusion, TITRATE, Starting on Lorri 04/24/22 at 0936, Until Discontinu ed, LUCITA [facility] oxytocin (PITOCIN) 30 units in NS 500 mL IV infusion 04-24 15:36: 22 04-27 07:02 :59 No 2mU/min at 2-40 mL/hr, IV Infusion, TITRATE, Starting on Lorri 04/24/22 at 0936, Until Thu23 at 0102, LUCITA [facility] lactated ringers IV infusion 500 mL 04-24 15:30: 00 04-24 17:14 :00 No 500mL at 999 mL/hr, 500 mL, IV Infusion, ONCE, 1 dose, On Lorri 04/24/22 at 0930, Routine [facility] lactated ringers IV infusion 500 mL 04-24 14:36: 04 Yes 500mL at 999 mL/hr, 500 mL, IV Infusion, PRN - SEE INSTRUCTIO NS, 1 dose, Starting on Lorri 04/24/22 at 0836, Until Discontinu ed, Routine [facility] lactated ringers IV infusion 500 mL 04-24 14:36: 04 04-27 07:02 :59 No 500mL at 999 mL/hr, 500 mL, IV Infusion, PRN - SEE INSTRUCTIO NS, 1 dose, Starting on Lorri 04/24/22 at 0836, Until [place] 04/27/22 at 0102, Routine [facility] sodium citrate-cit batool acid (BICITRA) 500-334 mg/5 mL solution 30 mL 04-24 14:36: 04 04-24 17:16 :00 No 30mL 30 mL, Oral, PRE-PROCED URE ONCE, 1 dose, Starting on Lorri 04/24/22 at 0836, Until [place] 04/24/22 at 1116, Routine, Surgery/Pr ocedure [facility] proMETHazin e (PHENERGAN) 12.5 mg in NS 50 mL IV piggyback (CNR) 04-24 09:15: 00 04-24 09:26 :46 No 12.5mg 12.5 mg, IV Piggyback, at 200 mL/hr Administer over 15 Minutes, ONCE NOW, 1 dose, On Lorri 04/24/22 at 0315, Routine [facility] butorphanol (STADOL) injection 1 mg 04-24 09:00: 00 04-24 08:55 :00 No 1mg 1 mg, Intravenou s, ONCE, 1 dose, On Lorri 04/24/22 at 0300, Routine [facility] proMETHazin e (PHENERGAN) 12.5 mg in NS 50 mL IV piggyback (CNR) 04-24 03:07: 00 04-24 05:50 :09 No 12.5mg 12.5 mg, IV Piggyback, at 200 mL/hr Administer over 15 Minutes, ONCE NOW, 1 dose, On Thu04/23/22 at 2115, LUCITA [facility] butorphanol (STADOL) injection 1 mg 04-24 03:07: 00 04-24 03:54 :00 No 1mg 1 mg, Intravenou s, ONCE, 1 dose, On Thu04/23/22 at 2115, Routine [facility] sodium citrate-cit batool acid (BICITRA) 500-334 mg/5 mL solution 30 mL 04-24 01:40: 33 Yes 30mL 30 mL, Oral, PRE-PROCED URE ONCE, 1 dose, Starting on Thu04/23/22 at 1940, Until Discontinu ed, Routine, Surgery/Pr ocedure [facility] lidocaine 1% (XYLOCAINE) 10 mg/mL (1 %) injection 50 mL 04-24 01:40: 33 Yes 50mL 50 mL, Infiltrati on, PRN - SEE INSTRUCTIO NS, Starting on Thu04/23/22 at 1940, Until Discontinu ed, Routine, Local anesthesia , For laceration repair only as a local anesthetic as indicated. [facility] lidocaine 1% (PF) (XYLOCAINE) injection 0.3 mL 04-24 01:40: 33 Yes .3mL 0.3 mL, Infiltrati on, PRN - SEE INSTRUCTIO NS, Starting on Thu04/23/22 at 1940, Until Discontinu ed, Routine, Local anesthesia , For IV line placement only as a local anesthetic . [facility] lactated ringers IV infusion 500 mL 04-24 01:40: 33 Yes 500mL at 999 mL/hr, 500 mL, IV Infusion, PRN - SEE INSTRUCTIO NS, Starting on Thu04/23/22 at 1940, Until Discontinu ed, Routine [facility] D5W-LR IV infusion 1,000 mL 04-24 01:40: Yes 1000mL at 1-125 mL/hr, IV Infusion, TITRATE, Starting on Thu04/23/22 at 1940, Until Discontinu ed, Routine [facility] sodium citrate-cit batool acid (BICITRA) 500-334 mg/5 mL solution 30 mL 04-24 01:40: 04-27 07:02 :59 No 30mL 30 mL, Oral, PRE-PROCED URE ONCE, 1 dose, Starting on Thu04/23/22 at 194, Until Thu04/27/22 at 0102, Routine, Surgery/Pr ocedure [facility] lidocaine 1% (XYLOCAINE) 10 mg/mL (1 %) injection 50 mL 04-24 01:40: 04-27 07:02 :59 No 50mL 50 mL, Infiltrati on, PRN - SEE INSTRUCTIO NS, Starting on Thu04/23/22 at 1940, Until Thu04/27/22 at 0102, Routine, Local anesthesia , For laceration repair only as a local anesthetic as indicated. [facility] lidocaine 1% (PF) (XYLOCAINE) injection 0.3 mL 04-24 01:40: 04-27 07:02 :59 No .3mL 0.3 mL, Infiltrati on, PRN - SEE INSTRUCTIO NS, Starting on Thu04/23/22 at 1940, Until Thu04/27/22 at 0102, Routine, Local anesthesia , For IV line placement only as a local anesthetic . [facility] lactated ringers IV infusion 500 mL 04-24 01:40: 04-27 07:02 :59 No 500mL at 999 mL/hr, 500 mL, IV Infusion, PRN - SEE INSTRUCTIO NS, Starting on Thu04/23/22 at 1940, Until Thu04/27/22 at 0102, Routine [facility] D5W-LR IV infusion 1,000 mL 04-24 01:40: 04-27 07:02 :59 No 1000mL at 1-125 mL/hr, IV Infusion, TITRATE, Starting on Thu04/23/22 at 1940, Until Thu04/27/22 at 0102, Routine [facility] alum-mag hydroxide-s imeth (MAALOX PLUS / MAG-AL PLUS) 200-200-20 mg/5 mL suspension 30 mL 04-24 01:37: 05 Yes 30mL 30 mL, Oral, Q6HPRN, Starting on Thu04/23/22 at 1937, Until Discontinu ed, Routine, Indigestio n [facility] docusate (COLACE) capsule 200 mg 04-24 01:37: 05 Yes 200mg 200 mg, Oral, QHSPRN, Starting on Thu04/23/22 at 193, Until Discontinu ed, Routine, Constipati on [facility] magnesium hydroxide (MILK OF MAGNESIA) 400 mg/5 mL suspension 30 mL 04-24 01:37: 05 Yes 30mL 30 mL, Oral, QDAILYPRN, Starting on Thu04/23/22 at 193, Until Discontinu ed, Routine, Constipati on [facility] alum-mag hydroxide-s imeth (MAALOX PLUS / MAG-AL PLUS) 200-200-20 mg/5 mL suspension 30 mL 04-24 01:37: 05 04-27 07:02 :59 No 30mL 30 mL, Oral, Q6HPRN, Starting on Thu04/23/22 at 1937, Until Thu04/27/22 at 0102, Routine, Indigestio n [facility] docusate (COLACE) capsule 200 mg 04-24 01:37: 05 04-27 07:02 :59 No 200mg 200 mg, Oral, QHSPRN, Starting on Thu04/23/22 at 1937, Until Thu04/27/22 at 0102, Routine, Constipati on [facility] magnesium hydroxide (MILK OF MAGNESIA) 400 mg/5 mL suspension 30 mL 04-24 01:37: 05 04-27 07:02 :59 No 30mL 30 mL, Oral, QDAILYPRN, Starting on 04/23/22 at 1937, Until 04/27/22 at 0102, Routine, Constipati on [facility] fluconazole (DIFLUCAN) 150 mg tablet 04-23 00:00: 00 04-26 00:00 :00 No [id number] 150mg Take 1 tablet by mouth once now for 1 dose. [facility] fluconazole (DIFLUCAN) 150 mg tablet 04-23 00:00: 00 04-26 00:00 :00 No [id number] 150mg Take 1 tablet by mouth once now for 1 dose. [facility] fluconazole (DIFLUCAN) 150 mg tablet 04-23 00:00: 00 04-24 05:59 :00 No [id number] 150mg Take 1 tablet by mouth once now for 1 dose. [facility] ferrous sulfate 325 mg (65 mg iron) tablet 04-09 00:00: 00 Yes [id number] 325mg Take 1 tablet by mouth in the morning and 1 tablet in the evening. [facility] ascorbic acid, vitamin C, 500 mg tablet 04-09 00:00: 00 Yes [id number] 500mg Take 1 tablet by mouth in the morning and 1 tablet at noon and 1 tablet in the evening. [facility] ferrous sulfate 325 mg (65 mg iron) tablet 04-09 00:00: 00 Yes [id number] 325mg Take 1 tablet by mouth in the morning and 1 tablet in the evening. [facility] ascorbic acid, vitamin C, 500 mg tablet 15 00:00: 00 Yes [id number] 500mg Take 1 tablet by mouth in the morning and 1 tablet at noon and 1 tablet in the evening. [facility] ferrous sulfate 325 mg (65 mg iron) tablet 15 00:00: 00 Yes [id number] 325mg Take 1 tablet by mouth in the morning and 1 tablet in the evening. [facility] ascorbic acid, vitamin C, 500 mg tablet 15 00:00: 00 Yes [id number] 500mg Take 1 tablet by mouth in the morning and 1 tablet at noon and 1 tablet in the evening. [facility] ferrous sulfate 325 mg (65 mg iron) tablet 2022-0 2-15 00:00: 00 Yes [id number] 325mg Take 1 tablet by mouth in the morning and 1 tablet in the evening. [facility] ascorbic acid, vitamin C, 500 mg tablet 0 2-15 00:00: 00 Yes [id number] 500mg Take 1 tablet by mouth in the morning and 1 tablet at noon and 1 tablet in the evening. [facility] ferrous sulfate 325 mg (65 mg iron) tablet 2022-0 2-15 00:00: 00 Yes [id number] 325mg Take 1 tablet by mouth in the morning and 1 tablet in the evening. [facility] ascorbic acid, vitamin C, 500 mg tablet 2022-0 2-15 00:00: 00 Yes [id number] 500mg Take 1 tablet by mouth in the morning and 1 tablet at noon and 1 tablet in the evening. [facility] ferrous sulfate 325 mg (65 mg iron) tablet 2022-0 2-15 00:00: 00 Yes [id number] 325mg Take 1 tablet by mouth in the morning and 1 tablet in the evening. [facility] ascorbic acid, vitamin C, 500 mg tablet 0 2-15 00:00: 00 Yes [id number] 500mg Take 1 tablet by mouth in the morning and 1 tablet at noon and 1 tablet in the evening. [facility] ferrous sulfate 325 mg (65 mg iron) tablet 0 2-15 00:00: 00 04-26 00:00 :00 No [id number] 325mg Take 1 tablet by mouth in the morning and 1 tablet in the evening. [facility] ascorbic acid, vitamin C, 500 mg tablet 2022-0 2-15 00:00: 00 04-26 00:00 :00 No [id number] 500mg Take 1 tablet by mouth in the morning and 1 tablet at noon and 1 tablet in the evening. [facility] ferrous sulfate 325 mg (65 mg iron) tablet 2022-0 2-15 00:00: 00 04-26 00:00 :00 No [id number] 325mg Take 1 tablet by mouth in the morning and 1 tablet in the evening. [facility] ascorbic acid, vitamin C, 500 mg tablet 04-09 00:00: 00 04-26 00:00 :00 No [id number] 500mg Take 1 tablet by mouth in the morning and 1 tablet at noon and 1 tablet in the evening. [facility] fluconazole (DIFLUCAN) 150 mg tablet 14 00:00: 00 04-09 05:59 :00 No [id number] 150mg Take 1 tablet by mouth once now for 1 dose. [facility] metroNIDAZO LE 500 mg tablet 03-27 00:00: 00 Yes [id number] 500mg Take 1 tablet by mouth in the morning and 1 tablet in the evening. [facility] metroNIDAZO LE 500 mg tablet 0 03-27 00:00: 00 Yes [id number] 500mg Take 1 tablet by mouth in the morning and 1 tablet in the evening. [facility] metroNIDAZO LE 500 mg tablet 0 03-27 00:00: 00 Yes [id number] 500mg Take 1 tablet by mouth in the morning and 1 tablet in the evening. [facility] metroNIDAZO LE 500 mg tablet 0 03-27 00:00: 00 Yes [id number] 500mg Take 1 tablet by mouth in the morning and 1 tablet in the evening. [facility] metroNIDAZO LE 500 mg tablet 0 03-27 00:00: 00 Yes [id number] 500mg Take 1 tablet by mouth in the morning and 1 tablet in the evening. [facility] metroNIDAZO LE 500 mg tablet 2022-0 03-27 00:00: 00 Yes [id number] 500mg Take 1 tablet by mouth in the morning and 1 tablet in the evening. [facility] metroNIDAZO LE 500 mg tablet 2022-0 03-27 00:00: 00 Yes [id number] 500mg Take 1 tablet by mouth in the morning and 1 tablet in the evening. [facility] metroNIDAZO LE 500 mg tablet 0 2- 00:00: 00 Yes [id number] 500mg Take 1 tablet by mouth in the morning and 1 tablet in the evening. [facility] metroNIDAZO LE 500 mg tablet 0 2- 00:00: 00 Yes [id number] 500mg Take 1 tablet by mouth in the morning and 1 tablet in the evening. [facility] metroNIDAZO LE 500 mg tablet 0 2- 00:00: 00 Yes [id number] 500mg Take 1 tablet by mouth in the morning and 1 tablet in the evening. [facility] metroNIDAZO LE 500 mg tablet 2 00:00: 00 Yes [id number] 500mg Take 1 tablet by mouth in the morning and 1 tablet in the evening. [facility] metroNIDAZO LE 500 mg tablet 03-27 00:00: 00 04-26 00:00 :00 No [id number] 500mg Take 1 tablet by mouth in the morning and 1 tablet in the evening. [facility] metroNIDAZO LE 500 mg tablet 03-27 00:00: 00 04-26 00:00 :00 No [id number] 500mg Take 1 tablet by mouth in the morning and 1 tablet in the evening. [facility] fluconazole (DIFLUCAN) 150 mg tablet 03-25 00:00: 00 03-26 05:59 :00 No [id number] 150mg Take 1 tablet by mouth once now for 1 dose. [facility] fluconazole (DIFLUCAN) 150 mg tablet 03-25 00:00: 00 03-26 05:59 :00 No [id number] 150mg Take 1 tablet by mouth once now for 1 dose. [facility] fluconazole (DIFLUCAN) 150 mg tablet 03-25 00:00: 00 03-26 05:59 :00 No [id number] 150mg Take 1 tablet by mouth once now for 1 dose. [facility] fluconazole (DIFLUCAN) 150 mg tablet 03-25 00:00: 03-26 05:59 :00 No [id number] 150mg Take 1 tablet by mouth once now for 1 dose. [facility] NaCl 0.9% (NS) IV infusion 1,000 mL 2021-02 00:45: 00 Yes 1000mL at 125 mL/hr, IV Infusion, CONTINUOUS , Starting on Thu02/05/22 at 1845, Until Discontinu ed, Routine [facility] metoclopram yuriy HCl (REGLAN) injection 10 mg 2021-02 00:00: 00 Yes 10mg 10 mg, Slow IV Push, Q6H, First dose on Thu02/05/22 at 1800, Until Discontinu ed, Routine [facility] sodium citrate-cit batool acid (BICITRA) 500-334 mg/5 mL solution 15 mL 2021-02 00:00: 00 Yes 15mL 15 mL, Oral, PC+HS, First dose on Thu02/05/22 at 1800, Until Discontinu ed, Routine [facility] sodium citrate-cit batool acid (BICITRA) 500-334 mg/5 mL solution 15 mL 2021-02 00:00: 00 Yes 15mL 15 mL, Oral, PC+HS, First dose on Thu02/02/22 at 1800, Until Discontinu ed, Routine [facility] vit no.124/iron /folic ( VITAMIN ORAL) 2021-02 18:49: 59 02-02 00:00 :00 No Take by mouth. [facility] vit no.124/iron /folic ( VITAMIN ORAL) 2021-02 18:49: 59 02-02 00:00 :00 No Take by mouth. [facility] vit no.124/iron /folic ( VITAMIN ORAL) 2021-02 18:33: 28 Yes Take by mouth. [facility] Iron Fum & P-FA-Vit B & C No.9 (INTEGRA PLUS) 125 mg iron- 1 mg Cap 2021-02 00:00: 00 Yes [id number] 1{capsu le} Take 1 capsule by mouth daily. [facility] Iron Fum & P-FA-Vit B & C No.9 (INTEGRA PLUS) 125 mg iron- 1 mg Cap 2021-02 2-11 00:00: 00 Yes [id number] 1{capsu le} Take 1 capsule by mouth daily. [facility] Iron Fum & P-FA-Vit B & C No.9 (INTEGRA PLUS) 125 mg iron- 1 mg Cap 2021-02 2-11 00:00: 00 Yes [id number] 1{capsu le} Take 1 capsule by mouth daily. [facility] Iron Fum & P-FA-Vit B & C No.9 (INTEGRA PLUS) 125 mg iron- 1 mg Cap 2021-02 2- 00:00: 00 Yes [id number] 1{capsu le} Take 1 capsule by mouth daily. [facility] Iron Fum & P-FA-Vit B & C No.9 (INTEGRA PLUS) 125 mg iron- 1 mg Cap 2021-02 2- 00:00: 00 Yes [id number] 1{capsu le} Take 1 capsule by mouth daily. [facility] Iron Fum & P-FA-Vit B & C No.9 (INTEGRA PLUS) 125 mg iron- 1 mg Cap 2021-02 2- 00:00: 00 Yes [id number] 1{capsu le} Take 1 capsule by mouth daily. [facility] Iron Fum & P-FA-Vit B & C No.9 (INTEGRA PLUS) 125 mg iron- 1 mg Cap 2021-02 2- 00:00: 00 Yes [id number] 1{capsu le} Take 1 capsule by mouth daily. [facility] Iron Fum & P-FA-Vit B & C No.9 (INTEGRA PLUS) 125 mg iron- 1 mg Cap 2021-02 2-11 00:00: 00 Yes [id number] 1{capsu le} Take 1 capsule by mouth daily. [facility] Iron Fum & P-FA-Vit B & C No.9 (INTEGRA PLUS) 125 mg iron- 1 mg Cap 2021-02 2-11 00:00: 00 Yes [id number] 1{capsu le} Take 1 capsule by mouth daily. [facility] Iron Fum & P-FA-Vit B & C No.9 (INTEGRA PLUS) 125 mg iron- 1 mg Cap 2021-02 2- 00:00: 00 Yes [id number] 1{capsu le} Take 1 capsule by mouth daily. [facility] Iron Fum & P-FA-Vit B & C No.9 (INTEGRA PLUS) 125 mg iron- 1 mg Cap 2021-02 2- 00:00: 00 Yes [id number] 1{capsu le} Take 1 capsule by mouth daily. [facility] Iron Fum & P-FA-Vit B & C No.9 (INTEGRA PLUS) 125 mg iron- 1 mg Cap 2021-02 2- 00:00: 00 Yes [id number] 1{capsu le} Take 1 capsule by mouth daily. [facility] Iron Fum & P-FA-Vit B & C No.9 (INTEGRA PLUS) 125 mg iron- 1 mg Cap 2021-02 2- 00:00: 00 Yes [id number] 1{capsu le} Take 1 capsule by mouth daily. [facility] Iron Fum & P-FA-Vit B & C No.9 (INTEGRA PLUS) 125 mg iron- 1 mg Cap 2021-02 2 00:00: 00 Yes [id number] 1{capsu le} Take 1 capsule by mouth daily. [facility] Iron Fum & P-FA-Vit B & C No.9 (INTEGRA PLUS) 125 mg iron- 1 mg Cap 2021-02 2- 00:00: 00 Yes [id number] 1{capsu le} Take 1 capsule by mouth daily. [facility] Iron Fum & P-FA-Vit B & C No.9 (INTEGRA PLUS) 125 mg iron- 1 mg Cap 2021-02 2- 00:00: 00 Yes [id number] 1{capsu le} Take 1 capsule by mouth daily. [facility] Iron Fum & P-FA-Vit B & C No.9 (INTEGRA PLUS) 125 mg iron- 1 mg Cap 2021-02 2- 00:00: 00 Yes [id number] 1{capsu le} Take 1 capsule by mouth daily. [facility] Iron Fum & P-FA-Vit B & C No.9 (INTEGRA PLUS) 125 mg iron- 1 mg Cap 2021-02 2- 00:00: 00 Yes [id number] 1{capsu le} Take 1 capsule by mouth daily. [facility] Iron Fum & P-FA-Vit B & C No.9 (INTEGRA PLUS) 125 mg iron- 1 mg Cap 2021-02 2- 00:00: 00 Yes [id number] 1{capsu le} Take 1 capsule by mouth daily. [facility] Iron Fum & P-FA-Vit B & C No.9 (INTEGRA PLUS) 125 mg iron- 1 mg Cap 2021-02 2- 00:00: 00 Yes [id number] 1{capsu le} Take 1 capsule by mouth daily. [facility] Iron Fum & P-FA-Vit B & C No.9 (INTEGRA PLUS) 125 mg iron- 1 mg Cap 2021-02 2- 00:00: 00 Yes [id number] 1{capsu le} Take 1 capsule by mouth daily. [facility] Iron Fum & P-FA-Vit B & C No.9 (INTEGRA PLUS) 125 mg iron- 1 mg Cap 2021-02 2- 00:00: 00 Yes [id number] 1{capsu le} Take 1 capsule by mouth daily. [facility] Iron Fum & P-FA-Vit B & C No.9 (INTEGRA PLUS) 125 mg iron- 1 mg Cap 2021-02 2- 00:00: 00 Yes [id number] 1{capsu le} Take 1 capsule by mouth daily. [facility] Iron Fum & P-FA-Vit B & C No.9 (INTEGRA PLUS) 125 mg iron- 1 mg Cap 2021-02 2- 00:00: 00 Yes [id number] 1{capsu le} Take 1 capsule by mouth daily. [facility] Iron Fum & P-FA-Vit B & C No.9 (INTEGRA PLUS) 125 mg iron- 1 mg Cap 2021-02 2- 00:00: 00 Yes [id number] 1{capsu le} Take 1 capsule by mouth daily. [facility] Iron Fum & P-FA-Vit B & C No.9 (INTEGRA PLUS) 125 mg iron- 1 mg Cap 2021-02 2- 00:00: 00 Yes [id number] 1{capsu le} Take 1 capsule by mouth daily. [facility] Iron Fum & P-FA-Vit B & C No.9 (INTEGRA PLUS) 125 mg iron- 1 mg Cap 2021-02 2- 00:00: 00 Yes [id number] 1{capsu le} Take 1 capsule by mouth daily. [facility] Iron Fum & P-FA-Vit B & C No.9 (INTEGRA PLUS) 125 mg iron- 1 mg Cap 2021-02 2- 00:00: 00 Yes [id number] 1{capsu le} Take 1 capsule by mouth daily. [facility] Iron Fum & P-FA-Vit B & C No.9 (INTEGRA PLUS) 125 mg iron- 1 mg Cap 2021-02 2- 00:00: 00 04-26 00:00 :00 No [id number] 1{capsu le} Take 1 capsule by mouth daily. [facility] Iron Fum & P-FA-Vit B & C No.9 (INTEGRA PLUS) 125 mg iron- 1 mg Cap 2021-02 2 00:00: 00 04-26 00:00 :00 No [id number] 1{capsu le} Take 1 capsule by mouth daily. [facility] acetaminoph en (TYLENOL) tablet 1,000 mg 2021-02 01:26: 00 Yes 1000mg 1,000 mg, Oral, Q6HPRN, Starting on Thu12/10/21 at 2025, Until Discontinu ed, Routine, Pain (scale 4-6) [facility] vit no.124/iron /folic ( VITAMIN ORAL) 2021-02 0 21:44: 23 Yes Take by mouth. [facility] vit no.124/iron /folic ( VITAMIN ORAL) 2021-02 0 21:44: 23 Yes Take by mouth. [facility] vit no.124/iron /folic ( VITAMIN ORAL) 2021-02 0 21:44: 23 Yes Take by mouth. [facility] vit no.124/iron /folic ( VITAMIN ORAL) 2021-02 018 21:44: 23 Yes Take by mouth. [facility] vit no.124/iron /folic ( VITAMIN ORAL) 2021-02 018 21:44: 23 Yes Take by mouth. [facility] vit no.124/iron /folic ( VITAMIN ORAL) 2021-02 018 21:44: 23 Yes Take by mouth. [facility] montelukast 10 mg tablet 10-24 00:00: 00 01-23 05:59 :00 No [id number] 103 10mg Take 1 tablet by mouth every evening for 90 days. [facility] montelukast 10 mg tablet 10-24 00:00: 00 01-23 05:59 :00 No [id number] 103 10mg Take 1 tablet by mouth every evening for 90 days. [facility] montelukast 10 mg tablet 10-24 00:00: 00 01-23 05:59 :00 No [id number] 103 10mg Take 1 tablet by mouth every evening for 90 days. [facility] montelukast 10 mg tablet 10-24 00:00: 00 01-23 05:59 :00 No [id number] 103 10mg Take 1 tablet by mouth every evening for 90 days. [facility] montelukast 10 mg tablet 10-24 00:00: 00 01-23 05:59 :00 No [id number] 103 10mg Take 1 tablet by mouth every evening for 90 days. [facility] montelukast 10 mg tablet 10-24 00:00: 00 01-23 05:59 :00 No [id number] 103 10mg Take 1 tablet by mouth every evening for 90 days. [facility] [facility] mg tablet 10-24 00:00: 00 01-23 05:59 :00 No [id number] 103 10mg Take 1 tablet by mouth every evening for 90 days. [facility] montelukast 10 mg tablet 10-24 00:00: 00 01-23 05:59 :00 No [id number] 103 10mg Take 1 tablet by mouth every evening for 90 days. [facility] montelukast 10 mg tablet 10-24 00:00: 00 01-23 05:59 :00 No [id number] 103 10mg Take 1 tablet by mouth every evening for 90 days. [facility] montelukast 10 mg tablet 10-24 00:00: 00 01-23 05:59 :00 No [id number] 103 10mg Take 1 tablet by mouth every evening for 90 days. [facility] montelukast 10 mg tablet 10-24 00:00: 00 01-23 05:59 :00 No [id number] 103 10mg Take 1 tablet by mouth every evening for 90 days. [facility] montelukast 10 mg tablet 10-24 00:00: 00 01-23 05:59 :00 No [id number] 103 10mg Take 1 tablet by mouth every evening for 90 days. [facility] PNV 67-iron ps-folate no.1-dha (VITAFOL ULTRA) 29 mg iron- 1 mg-200 mg Cap 10-18 00:00: 00 Yes [id number] 1{each} Take 1 Each by mouth daily. [facility] PNV 67-iron ps-folate no.1-dha (VITAFOL ULTRA) 29 mg iron- 1 mg-200 mg Cap 2021-0 8- 00:00: 00 Yes [id number] 1{each} Take 1 Each by mouth daily. [facility] PNV 67-iron ps-folate no.1-dha (VITAFOL ULTRA) 29 mg iron- 1 mg-200 mg Cap 2021-0 - 00:00: 00 Yes [id number] 1{each} Take 1 Each by mouth daily. [facility] PNV 67-iron ps-folate no.1-dha (VITAFOL ULTRA) 29 mg iron- 1 mg-200 mg Cap 2022-0 8- 00:00: 00 Yes [id number] 1{each} Take 1 Each by mouth daily. [facility] PNV 67-iron ps-folate no.1-dha (VITAFOL ULTRA) 29 mg iron- 1 mg-200 mg Cap 2022-0 8- 00:00: 00 Yes [id number] 1{each} Take 1 Each by mouth daily. [facility] PNV 67-iron ps-folate no.1-dha (VITAFOL ULTRA) 29 mg iron- 1 mg-200 mg Cap 2-0 8- 00:00: 00 Yes [id number] 1{each} Take 1 Each by mouth daily. [facility] PNV 67-iron ps-folate no.1-dha (VITAFOL ULTRA) 29 mg iron- 1 mg-200 mg Cap 2021-0 8 00:00: 00 Yes [id number] 1{each} Take 1 Each by mouth daily. [facility] PNV 67-iron ps-folate no.1-dha (VITAFOL ULTRA) 29 mg iron- 1 mg-200 mg Cap 2021-0 8 00:00: 00 Yes [id number] 1{each} Take 1 Each by mouth daily. [facility] PNV 67-iron ps-folate no.1-dha (VITAFOL ULTRA) 29 mg iron- 1 mg-200 mg Cap 2021-0 8- 00:00: 00 Yes [id number] 1{each} Take 1 Each by mouth daily. [facility] PNV 67-iron ps-folate no.1-dha (VITAFOL ULTRA) 29 mg iron- 1 mg-200 mg Cap 2-0 8- 00:00: 00 Yes [id number] 1{each} Take 1 Each by mouth daily. [facility] PNV 67-iron ps-folate no.1-dha (VITAFOL ULTRA) 29 mg iron- 1 mg-200 mg Cap 2022-0 8- 00:00: 00 Yes [id number] 1{each} Take 1 Each by mouth daily. [facility] PNV 67-iron ps-folate no.1-dha (VITAFOL ULTRA) 29 mg iron- 1 mg-200 mg Cap 2-0 8-26 00:00: 00 Yes [id number] 1{each} Take 1 Each by mouth daily. [facility] PNV 67-iron ps-folate no.1-dha (VITAFOL ULTRA) 29 mg iron- 1 mg-200 mg Cap 2-0 8- 00:00: 00 Yes [id number] 1{each} Take 1 Each by mouth daily. [facility] PNV 67-iron ps-folate no.1-dha (VITAFOL ULTRA) 29 mg iron- 1 mg-200 mg Cap 2021-0 8- 00:00: 00 Yes [id number] 1{each} Take 1 Each by mouth daily. [facility] PNV 67-iron ps-folate no.1-dha (VITAFOL ULTRA) 29 mg iron- 1 mg-200 mg Cap 2021-0 8- 00:00: 00 Yes [id number] 1{each} Take 1 Each by mouth daily. [facility] PNV 67-iron ps-folate no.1-dha (VITAFOL ULTRA) 29 mg iron- 1 mg-200 mg Cap 2021-0 8- 00:00: 00 Yes [id number] 1{each} Take 1 Each by mouth daily. [facility] PNV 67-iron ps-folate no.1-dha (VITAFOL ULTRA) 29 mg iron- 1 mg-200 mg Cap 2021-0 8- 00:00: 00 Yes [id number] 1{each} Take 1 Each by mouth daily. [facility] PNV 67-iron ps-folate no.1-dha (VITAFOL ULTRA) 29 mg iron- 1 mg-200 mg Cap 2-0 8- 00:00: 00 Yes [id number] 1{each} Take 1 Each by mouth daily. [facility] PNV 67-iron ps-folate no.1-dha (VITAFOL ULTRA) 29 mg iron- 1 mg-200 mg Cap 2-0 8- 00:00: 00 Yes [id number] 1{each} Take 1 Each by mouth daily. [facility] PNV 67-iron ps-folate no.1-dha (VITAFOL ULTRA) 29 mg iron- 1 mg-200 mg Cap 2021-0 8- 00:00: 00 Yes [id number] 1{each} Take 1 Each by mouth daily. [facility] PNV 67-iron ps-folate no.1-dha (VITAFOL ULTRA) 29 mg iron- 1 mg-200 mg Cap 2021-0 8 00:00: 00 Yes [id number] 1{each} Take 1 Each by mouth daily. [facility] PNV 67-iron ps-folate no.1-dha (VITAFOL ULTRA) 29 mg iron- 1 mg-200 mg Cap 2021-0 8 00:00: 00 Yes [id number] 1{each} Take 1 Each by mouth daily. [facility] PNV 67-iron ps-folate no.1-dha (VITAFOL ULTRA) 29 mg iron- 1 mg-200 mg Cap 2021-0 8 00:00: 00 Yes [id number] 1{each} Take 1 Each by mouth daily. [facility] PNV 67-iron ps-folate no.1-dha (VITAFOL ULTRA) 29 mg iron- 1 mg-200 mg Cap 2021-0 8 00:00: 00 Yes [id number] 1{each} Take 1 Each by mouth daily. [facility] PNV 67-iron ps-folate no.1-dha (VITAFOL ULTRA) 29 mg iron- 1 mg-200 mg Cap 2021-0 8 00:00: 00 Yes [id number] 1{each} Take 1 Each by mouth daily. [facility] PNV 67-iron ps-folate no.1-dha (VITAFOL ULTRA) 29 mg iron- 1 mg-200 mg Cap 2021-0 8- 00:00: 00 Yes [id number] 1{each} Take 1 Each by mouth daily. [facility] PNV 67-iron ps-folate no.1-dha (VITAFOL ULTRA) 29 mg iron- 1 mg-200 mg Cap 2-0 8- 00:00: 00 Yes [id number] 1{each} Take 1 Each by mouth daily. [facility] PNV 67-iron ps-folate no.1-dha (VITAFOL ULTRA) 29 mg iron- 1 mg-200 mg Cap 2022-0 8- 00:00: 00 Yes [id number] 1{each} Take 1 Each by mouth daily. [facility] PNV 67-iron ps-folate no.1-dha (VITAFOL ULTRA) 29 mg iron- 1 mg-200 mg Cap 2022-0 8- 00:00: 00 Yes [id number] 1{each} Take 1 Each by mouth daily. [facility] PNV 67-iron ps-folate no.1-dha (VITAFOL ULTRA) 29 mg iron- 1 mg-200 mg Cap 2022-0 8- 00:00: 00 Yes [id number] 1{each} Take 1 Each by mouth daily. [facility] PNV 67-iron ps-folate no.1-dha (VITAFOL ULTRA) 29 mg iron- 1 mg-200 mg Cap 2021-0 8- 00:00: 00 Yes [id number] 1{each} Take 1 Each by mouth daily. [facility] PNV 67-iron ps-folate no.1-dha (VITAFOL ULTRA) 29 mg iron- 1 mg-200 mg Cap 2021-0 8- 00:00: 00 Yes [id number] 1{each} Take 1 Each by mouth daily. [facility] PNV 67-iron ps-folate no.1-dha (VITAFOL ULTRA) 29 mg iron- 1 mg-200 mg Cap 2021-0 8- 00:00: 00 Yes [id number] 1{each} Take 1 Each by mouth daily. [facility] PNV 67-iron ps-folate no.1-dha (VITAFOL ULTRA) 29 mg iron- 1 mg-200 mg Cap 2022-0 8- 00:00: 00 Yes [id number] 1{each} Take 1 Each by mouth daily. [facility] PNV 67-iron ps-folate no.1-dha (VITAFOL ULTRA) 29 mg iron- 1 mg-200 mg Cap 2022-0 8- 00:00: 00 Yes [id number] 1{each} Take 1 Each by mouth daily. [facility] PNV 67-iron ps-folate no.1-dha (VITAFOL ULTRA) 29 mg iron- 1 mg-200 mg Cap 2022-0 8- 00:00: 00 Yes [id number] 1{each} Take 1 Each by mouth daily. [facility] PNV 67-iron ps-folate no.1-dha (VITAFOL ULTRA) 29 mg iron- 1 mg-200 mg Cap 2022-0 8- 00:00: 00 Yes [id number] 1{each} Take 1 Each by mouth daily. [facility] PNV 67-iron ps-folate no.1-dha (VITAFOL ULTRA) 29 mg iron- 1 mg-200 mg Cap 2022-0 8- 00:00: 00 Yes [id number] 1{each} Take 1 Each by mouth daily. [facility] PNV 67-iron ps-folate no.1-dha (VITAFOL ULTRA) 29 mg iron- 1 mg-200 mg Cap 2021-0 8 00:00: 00 Yes [id number] 1{each} Take 1 Each by mouth daily. [facility] PNV 67-iron ps-folate no.1-dha (VITAFOL ULTRA) 29 mg iron- 1 mg-200 mg Cap 2021-0 8 00:00: 00 Yes [id number] 1{each} Take 1 Each by mouth daily. [facility] PNV 67-iron ps-folate no.1-dha (VITAFOL ULTRA) 29 mg iron- 1 mg-200 mg Cap 2021-0 8 00:00: 00 Yes [id number] 1{each} Take 1 Each by mouth daily. [facility] PNV 67-iron ps-folate no.1-dha (VITAFOL ULTRA) 29 mg iron- 1 mg-200 mg Cap 2022-0 8- 00:00: 00 Yes [id number] 1{each} Take 1 Each by mouth daily. [facility] PNV 67-iron ps-folate no.1-dha (VITAFOL ULTRA) 29 mg iron- 1 mg-200 mg Cap 2022-0 8- 00:00: 00 Yes [id number] 1{each} Take 1 Each by mouth daily. [facility] PNV 67-iron ps-folate no.1-dha (VITAFOL ULTRA) 29 mg iron- 1 mg-200 mg Cap 2021-0 8- 00:00: 00 Yes [id number] 1{each} Take 1 Each by mouth daily. [facility] PNV 67-iron ps-folate no.1-dha (VITAFOL ULTRA) 29 mg iron- 1 mg-200 mg Cap 2021-0 8- 00:00: 00 Yes [id number] 1{each} Take 1 Each by mouth daily. [facility] PNV 67-iron ps-folate no.1-dha (VITAFOL ULTRA) 29 mg iron- 1 mg-200 mg Cap 2021-0 10-18 00:00: 00 04-26 00:00 :00 No [id number] 1{each} Take 1 Each by mouth daily. [facility] PN 67-iron ps-folate no.1-dha (VITAFOL ULTRA) 29 mg iron- 1 mg-200 mg Cap 2021-0 10-18 00:00: 00 04-26 00:00 :00 No [id number] 1{each} Take 1 Each by mouth daily. [facility] Budesonide 90 mcg/actuati on aerosol powder 2021-0 8 00:00: 00 Yes [id number] 103 1{puff} Inhale 1 Puff in the morning and 1 Puff in the evening. [facility] Budesonide 90 mcg/actuati on aerosol powder 2021-0 8 00:00: 00 Yes [id number] 103 1{puff} Inhale 1 Puff in the morning and 1 Puff in the evening. [facility] Budesonide 90 mcg/actuati on aerosol powder 2-0 8 00:00: 00 Yes [id number] 103 1{puff} Inhale 1 Puff in the morning and 1 Puff in the evening. [facility] Budesonide 90 mcg/actuati on aerosol powder 2-0 8- 00:00: 00 Yes [id number] 103 1{puff} Inhale 1 Puff in the morning and 1 Puff in the evening. [facility] Budesonide 90 mcg/actuati on aerosol powder 2-0 8- 00:00: 00 Yes [id number] 103 1{puff} Inhale 1 Puff in the morning and 1 Puff in the evening. [facility] Budesonide 90 mcg/actuati on aerosol powder 2-0 8 00:00: 00 Yes [id number] 103 1{puff} Inhale 1 Puff in the morning and 1 Puff in the evening. [facility] Budesonide 90 mcg/actuati on aerosol powder 2-0 8 00:00: 00 Yes [id number] 103 1{puff} Inhale 1 Puff in the morning and 1 Puff in the evening. [facility] Budesonide 90 mcg/actuati on aerosol powder 2-0 8 00:00: 00 Yes [id number] 103 1{puff} Inhale 1 Puff in the morning and 1 Puff in the evening. [facility] Budesonide 90 mcg/actuati on aerosol powder 2-0 8 00:00: 00 Yes [id number] 103 1{puff} Inhale 1 Puff in the morning and 1 Puff in the evening. [facility] Budesonide 90 mcg/actuati on aerosol powder 2-0 8 00:00: 00 Yes [id number] 103 1{puff} Inhale 1 Puff in the morning and 1 Puff in the evening. [facility] Budesonide 90 mcg/actuati on aerosol powder 2-0 8 00:00: 00 Yes [id number] 103 1{puff} Inhale 1 Puff in the morning and 1 Puff in the evening. [facility] Budesonide 90 mcg/actuati on aerosol powder 2-0 8 00:00: 00 Yes [id number] 103 1{puff} Inhale 1 Puff in the morning and 1 Puff in the evening. [facility] Budesonide 90 mcg/actuati on aerosol powder 2-0 8- 00:00: 00 Yes [id number] 103 1{puff} Inhale 1 Puff in the morning and 1 Puff in the evening. [facility] Budesonide 90 mcg/actuati on aerosol powder 2-0 8- 00:00: 00 Yes [id number] 103 1{puff} Inhale 1 Puff in the morning and 1 Puff in the evening. [facility] Budesonide 90 mcg/actuati on aerosol powder 2-0 8- 00:00: 00 Yes [id number] 103 1{puff} Inhale 1 Puff in the morning and 1 Puff in the evening. [facility] Budesonide 90 mcg/actuati on aerosol powder 2-0 8 00:00: 00 Yes [id number] 103 1{puff} Inhale 1 Puff in the morning and 1 Puff in the evening. [facility] Budesonide 90 mcg/actuati on aerosol powder 2021-0 8 00:00: 00 Yes [id number] 103 1{puff} Inhale 1 Puff in the morning and 1 Puff in the evening. [facility] Budesonide 90 mcg/actuati on aerosol powder 2-0 8 00:00: 00 Yes [id number] 103 1{puff} Inhale 1 Puff in the morning and 1 Puff in the evening. [facility] Budesonide 90 mcg/actuati on aerosol powder 2-0 8 00:00: 00 Yes [id number] 103 1{puff} Inhale 1 Puff in the morning and 1 Puff in the evening. [facility] Budesonide 90 mcg/actuati on aerosol powder 2-0 8- 00:00: 00 Yes [id number] 103 1{puff} Inhale 1 Puff in the morning and 1 Puff in the evening. [facility] Budesonide 90 mcg/actuati on aerosol powder 2-0 8- 00:00: 00 Yes [id number] 103 1{puff} Inhale 1 Puff in the morning and 1 Puff in the evening. [facility] Budesonide 90 mcg/actuati on aerosol powder 2-0 8- 00:00: 00 Yes [id number] 103 1{puff} Inhale 1 Puff in the morning and 1 Puff in the evening. [facility] Budesonide 90 mcg/actuati on aerosol powder 2-0 8- 00:00: 00 Yes [id number] 103 1{puff} Inhale 1 Puff in the morning and 1 Puff in the evening. [facility] Budesonide 90 mcg/actuati on aerosol powder 2-0 8 00:00: 00 Yes [id number] 103 1{puff} Inhale 1 Puff in the morning and 1 Puff in the evening. [facility] Budesonide 90 mcg/actuati on aerosol powder 2021-0 8 00:00: 00 Yes [id number] 103 1{puff} Inhale 1 Puff in the morning and 1 Puff in the evening. [facility] Budesonide 90 mcg/actuati on aerosol powder 2021-0 8 00:00: 00 Yes [id number] 103 1{puff} Inhale 1 Puff in the morning and 1 Puff in the evening. [facility] Budesonide 90 mcg/actuati on aerosol powder 2021-0 8 00:00: 00 Yes [id number] 103 1{puff} Inhale 1 Puff in the morning and 1 Puff in the evening. [facility] Budesonide 90 mcg/actuati on aerosol powder 2-0 8 00:00: 00 Yes [id number] 103 1{puff} Inhale 1 Puff in the morning and 1 Puff in the evening. [facility] Budesonide 90 mcg/actuati on aerosol powder 2-0 8- 00:00: 00 Yes [id number] 103 1{puff} Inhale 1 Puff in the morning and 1 Puff in the evening. [facility] Budesonide 90 mcg/actuati on aerosol powder 2-0 8- 00:00: 00 Yes [id number] 103 1{puff} Inhale 1 Puff in the morning and 1 Puff in the evening. [facility] Budesonide 90 mcg/actuati on aerosol powder 2-0 8- 00:00: 00 Yes [id number] 103 1{puff} Inhale 1 Puff in the morning and 1 Puff in the evening. [facility] Budesonide 90 mcg/actuati on aerosol powder 2-0 8-08 00:00: 00 Yes [id number] 103 1{puff} Inhale 1 Puff in the morning and 1 Puff in the evening. [facility] Budesonide 90 mcg/actuati on aerosol powder 2-0 8- 00:00: 00 Yes [id number] 103 1{puff} Inhale 1 Puff in the morning and 1 Puff in the evening. [facility] Budesonide 90 mcg/actuati on aerosol powder 2-0 8 00:00: 00 Yes [id number] 103 1{puff} Inhale 1 Puff in the morning and 1 Puff in the evening. [facility] Budesonide 90 mcg/actuati on aerosol powder 2-0 8- 00:00: 00 Yes [id number] 103 1{puff} Inhale 1 Puff in the morning and 1 Puff in the evening. [facility] Budesonide 90 mcg/actuati on aerosol powder 2021-0 8 00:00: 00 Yes [id number] 103 1{puff} Inhale 1 Puff in the morning and 1 Puff in the evening. [facility] Budesonide 90 mcg/actuati on aerosol powder 2-0 8- 00:00: 00 Yes [id number] 103 1{puff} Inhale 1 Puff in the morning and 1 Puff in the evening. [facility] Budesonide 90 mcg/actuati on aerosol powder 2-0 8- 00:00: 00 Yes [id number] 103 1{puff} Inhale 1 Puff in the morning and 1 Puff in the evening. [facility] Budesonide 90 mcg/actuati on aerosol powder 2-0 8- 00:00: 00 Yes [id number] 103 1{puff} Inhale 1 Puff in the morning and 1 Puff in the evening. [facility] Budesonide 90 mcg/actuati on aerosol powder 0 8 00:00: 00 Yes [id number] 103 1{puff} Inhale 1 Puff in the morning and 1 Puff in the evening. [facility] Budesonide 90 mcg/actuati on aerosol powder 0 8 00:00: 00 Yes [id number] 103 1{puff} Inhale 1 Puff in the morning and 1 Puff in the evening. [facility] Budesonide 90 mcg/actuati on aerosol powder 0 8 00:00: 00 Yes [id number] 103 1{puff} Inhale 1 Puff in the morning and 1 Puff in the evening. [facility] Budesonide 90 mcg/actuati on aerosol powder 0 09-30 00:00: 00 Yes [id number] 103 1{puff} Inhale 1 Puff in the morning and 1 Puff in the evening. [facility] Budesonide 90 mcg/actuati on aerosol powder 0 09-30 00:00: 00 Yes [id number] 103 1{puff} Inhale 1 Puff in the morning and 1 Puff in the evening. [facility] Budesonide 90 mcg/actuati on aerosol powder 09-30 00:00: 00 Yes [id number] 103 1{puff} Inhale 1 Puff in the morning and 1 Puff in the evening. [facility] Budesonide 90 mcg/actuati on aerosol powder 0 09-30 00:00: 00 04-26 00:00 :00 No [id number] 103 1{puff} Inhale 1 Puff in the morning and 1 Puff in the evening. [facility] Budesonide 90 mcg/actuati on aerosol powder 0 09-30 00:00: 00 04-26 00:00 :00 No [id number] 103 1{puff} Inhale 1 Puff in the morning and 1 Puff in the evening. [facility] vit no.124/iron /folic ( VITAMIN ORAL) 7-11 15:57: 30 Yes Take by mouth. [facility] vit no.124/iron /folic ( VITAMIN ORAL) 09-02 15:57: 30 Yes Take by mouth. [facility] vit no.124/iron /folic ( VITAMIN ORAL) 09-02 15:57: 30 Yes Take by mouth. [facility] vit no.124/iron /folic ( VITAMIN ORAL) 09-02 15:57: 30 Yes Take by mouth. [facility] vit no.124/iron /folic ( VITAMIN ORAL) 09-02 15:57: 30 Yes Take by mouth. [facility] vit no.124/iron /folic ( VITAMIN ORAL) 09-02 15:57: 30 Yes Take by mouth. [facility] vit no.124/iron /folic ( VITAMIN ORAL) 09-02 15:57: 30 Yes Take by mouth. [facility] vit no.124/iron /folic ( VITAMIN ORAL) 09-02 15:57: 30 Yes Take by mouth. [facility] vit no.124/iron /folic ( VITAMIN ORAL) 09-02 15:57: 30 Yes Take by mouth. [facility] Immunizations Ordered Immunization Name Filled Immunization Name Date Status Comments Source HPV9 2022-06-06 00:00:00 Completed [facility] HPV9 2022-06-06 00:00:00 Completed [facility] HPV9 2022-06-06 00:00:00 Completed [facility] HPV9 2022-06-06 00:00:00 Completed [facility] HPV9 2022-06-06 00:00:00 Completed [facility] HPV9 2022-06-06 00:00:00 Completed [facility] HPV9 2022-06-06 00:00:00 Completed [facility] HPV9 2022-06-06 00:00:00 Completed [facility] HPV9 2022-06-06 00:00:00 Completed [facility] 2022-06-06 00:00:00 Completed [facility] HPV9 2022-06-06 00:00:00 Completed [facility] HPV9 2022-06-06 00:00:00 Completed [facility] HPV9 2022-06-06 00:00:00 Completed [facility] HPV9 2022-06-06 00:00:00 Completed [facility] HPV9 2022-06-06 00:00:00 Completed [facility] HPV9 2022-06-06 00:00:00 Completed [facility] HPV9 2022-06-06 00:00:00 Completed [facility] HPV9 2022-06-06 00:00:00 Completed [facility] HPV9 2022-04-26 00:00:00 Completed [facility] Varicella (varivax)(chicken pox) 2022-04-26 00:00:00 Completed [facility] HPV9 2022-04-26 00:00:00 Completed [facility] Varicella (varivax)(chicken pox) 2022-04-26 00:00:00 Completed [facility] HPV9 2022-04-26 00:00:00 Completed [facility] Varicella (varivax)(chicken pox) 2022-04-26 00:00:00 Completed [facility] HPV9 2022-04-26 00:00:00 Completed [facility] Varicella (varivax)(chicken pox) 2022-04-26 00:00:00 Completed [facility] HPV9 2022-04-26 00:00:00 Completed [facility] Varicella (varivax)(chicken pox) 2022-04-26 00:00:00 Completed [facility] HPV9 2022-04-26 00:00:00 Completed [facility] Varicella (varivax)(chicken pox) 2022-04-26 00:00:00 Completed [facility] HPV9 2022-04-26 00:00:00 Completed [facility] Varicella (varivax)(chicken pox) 2022-04-26 00:00:00 Completed [facility] HPV9 2022-04-26 00:00:00 Completed [facility] Varicella (varivax)(chicken pox) 2022-04-26 00:00:00 Completed [facility] HPV9 2022-04-26 00:00:00 Completed [facility] Varicella (varivax)(chicken pox) 2022-04-26 00:00:00 Completed [facility] HPV9 2022-04-26 00:00:00 Completed [facility] Varicella (varivax)(chicken pox) 2022-04-26 00:00:00 Completed [facility] HPV9 2022-04-26 00:00:00 Completed [facility] Varicella (varivax)(chicken pox) 2022-04-26 00:00:00 Completed [facility] HPV9 2022-04-26 00:00:00 Completed [facility] Varicella (varivax)(chicken pox) 2022-04-26 00:00:00 Completed [facility] HPV9 2022-04-26 00:00:00 Completed [facility] Varicella (varivax)(chicken pox) 2022-04-26 00:00:00 Completed [facility] HPV9 2022-04-26 00:00:00 Completed [facility] Varicella (varivax)(chicken pox) 2022-04-26 00:00:00 Completed [facility] HPV9 2022-04-26 00:00:00 Completed [facility] Varicella (varivax)(chicken pox) 2022-04-26 00:00:00 Completed [facility] HPV9 2022-04-26 00:00:00 Completed [facility] Varicella (varivax)(chicken pox) 2022-04-26 00:00:00 Completed [facility] HPV9 2022-04-26 00:00:00 Completed [facility] Varicella (varivax)(chicken pox) 2022-04-26 00:00:00 Completed [facility] HPV9 2022-04-26 00:00:00 Completed [facility] Varicella (varivax)(chicken pox) 2022-04-26 00:00:00 Completed [facility] HPV9 2022-04-26 00:00:00 Completed [facility] Varicella (varivax)(chicken pox) 2022-04-26 00:00:00 Completed [facility] HPV9 2022-04-26 00:00:00 Completed [facility] Varicella (varivax)(chicken pox) 2022-04-26 00:00:00 Completed [facility] HPV9 2022-04-26 00:00:00 Completed [facility] Varicella (varivax)(chicken pox) 2022-04-26 00:00:00 Completed [facility] 2022-04-26 00:00:00 Completed [facility] Varicella (varivax)(chicken pox) 2022-04-26 00:00:00 Completed [facility] 2022-04-26 00:00:00 Completed [facility] Varicella (varivax)(chicken pox) 2022-04-26 00:00:00 Completed [facility] 2022-04-26 00:00:00 Completed [facility] Varicella (varivax)(chicken pox) 2022-04-26 00:00:00 Completed [facility] HPV9 2022-04-26 00:00:00 Completed [facility] Varicella (varivax)(chicken pox) 2022-04-26 00:00:00 Completed [facility] 2022-04-26 00:00:00 Completed [facility] Varicella (varivax)(chicken pox) 2022-04-26 00:00:00 Completed [facility] HPV9 2022-04-26 00:00:00 Completed [facility] Varicella (varivax)(chicken pox) 2022-04-26 00:00:00 Completed [facility] HPV9 2022-04-26 00:00:00 Completed [facility] Varicella (varivax)(chicken pox) 2022-04-26 00:00:00 Completed [facility] HPV9 2022-04-26 00:00:00 Completed [facility] Varicella (varivax)(chicken pox) 2022-04-26 00:00:00 Completed [facility] HPV9 2022-04-26 00:00:00 Completed [facility] Varicella (varivax)(chicken pox) 2022-04-26 00:00:00 Completed [facility] HPV9 2022-04-26 00:00:00 Completed [facility] Varicella (varivax)(chicken pox) 2022-04-26 00:00:00 Completed [facility] TDAP 2022-01-31 00:00:00 Completed [facility] TDAP 2022-01-31 00:00:00 Completed [facility] TDAP 2022-01-31 00:00:00 Completed [facility] TDAP 2022-01-31 00:00:00 Completed [facility] TDAP 2022-01-31 00:00:00 Completed [facility] TDAP 2022-01-31 00:00:00 Completed [facility] TDAP 2022-01-31 00:00:00 Completed [facility] TDAP 2022-01-31 00:00:00 Completed [facility] TDAP 2022-01-31 00:00:00 Completed [facility] TDAP 2022-01-31 00:00:00 Completed [facility] TDAP 2022-01-31 00:00:00 Completed [facility] TDAP 2022-01-31 00:00:00 Completed [facility] TDAP 2022-01-31 00:00:00 Completed [facility] TDAP 2022-01-31 00:00:00 Completed [facility] TDAP 2022-01-31 00:00:00 Completed [facility] TDAP 2022-01-31 00:00:00 Completed [facility] TDAP 2022-01-31 00:00:00 Completed [facility] TDAP 2022-01-31 00:00:00 Completed [facility] TDAP 2022-01-31 00:00:00 Completed [facility] TDAP 2022-01-31 00:00:00 Completed [facility] TDAP 2022-01-31 00:00:00 Completed [facility] TDAP 2022-01-31 00:00:00 Completed [facility] TDAP 2022-01-31 00:00:00 Completed [facility] TDAP 2022-01-31 00:00:00 Completed [facility] TDAP 2022-01-31 00:00:00 Completed [facility] TDAP 2022-01-31 00:00:00 Completed [facility] TDAP 2022-01-31 00:00:00 Completed [facility] TDAP 2022-01-31 00:00:00 Completed [facility] TDAP 2022-01-31 00:00:00 Completed [facility] TDAP 2022-01-31 00:00:00 Completed [facility] TDAP 2022-01-31 00:00:00 Completed [facility] TDAP 2022-01-31 00:00:00 Completed [facility] TDAP 2022-01-31 00:00:00 Completed [facility] TDAP 2022-01-31 00:00:00 Completed [facility] TDAP 2022-01-31 00:00:00 Completed [facility] TDAP 2022-01-31 00:00:00 Completed [facility] TDAP 2022-01-31 00:00:00 Completed [facility] TDAP 2022-01-31 00:00:00 Completed [facility] TDAP 2022-01-31 00:00:00 Completed [facility] TDAP 2022-01-31 00:00:00 Completed [facility] TDAP 2022-01-31 00:00:00 Completed [facility] TDAP 2022-01-31 00:00:00 Completed [facility] TDAP 2022-01-31 00:00:00 Completed [facility] TDAP 2022-01-31 00:00:00 Completed [facility] TDAP 2022-01-31 00:00:00 Completed [facility] TDAP 2022-01-31 00:00:00 Completed [facility] TDAP 2022-01-31 00:00:00 Completed [facility] TDAP 2022-01-31 00:00:00 Completed [facility] TDAP 2022-01-31 00:00:00 Completed [facility] TDAP 2022-01-31 00:00:00 Completed [facility] TDAP 2022-01-31 00:00:00 Completed [facility] TDAP 2022-01-31 00:00:00 Completed [facility] TDAP 2022-01-31 00:00:00 Completed [facility] TDAP 2022-01-31 00:00:00 Completed [facility] TDAP 2022-01-31 00:00:00 Completed [facility] TDAP 2022-01-31 00:00:00 Completed [facility] TDAP 2022-01-31 00:00:00 Completed [facility] TDAP 2022-01-31 00:00:00 Completed [facility] TDAP 2022-01-31 00:00:00 Completed [facility] TDAP 2022-01-31 00:00:00 Completed [facility] TDAP 2022-01-31 00:00:00 Completed [facility] TDAP 2022-01-31 00:00:00 Completed [facility] TDAP 2022-01-31 00:00:00 Completed [facility] TDAP 2022-01-31 00:00:00 Completed [facility] SARS-COV-2 COVID-19 PFIZER VACCINE 2020-11-23 00:00:00 Completed [facility] SARS-COV-2 COVID-19 PFIZER VACCINE 2020-11-23 00:00:00 Completed [facility] SARS-COV-2 COVID-19 PFIZER VACCINE 2020-11-23 00:00:00 Completed [facility] SARS-COV-2 COVID-19 PFIZER VACCINE 2020-11-23 00:00:00 Completed [facility] SARS-COV-2 COVID-19 PFIZER VACCINE 2020-11-23 00:00:00 Completed [facility] SARS-COV-2 COVID-19 PFIZER VACCINE 2020-11-23 00:00:00 Completed [facility] SARS-COV-2 COVID-19 PFIZER VACCINE 2020-11-23 00:00:00 Completed [facility] SARS-COV-2 COVID-19 PFIZER VACCINE 2020-11-23 00:00:00 Completed [facility] SARS-COV-2 COVID-19 PFIZER VACCINE 2020-11-23 00:00:00 Completed [facility] SARS-COV-2 COVID-19 PFIZER VACCINE 2020-11-23 00:00:00 Completed [facility] SARS-COV-2 COVID-19 PFIZER VACCINE 2020-11-23 00:00:00 Completed [facility] SARS-COV-2 COVID-19 PFIZER VACCINE 2020-11-23 00:00:00 Completed [facility] SARS-COV-2 COVID-19 PFIZER VACCINE 2020-11-23 00:00:00 Completed [facility] SARS-COV-2 COVID-19 PFIZER VACCINE 2020-11-23 00:00:00 Completed [facility] SARS-COV-2 COVID-19 PFIZER VACCINE 2020-11-23 00:00:00 Completed [facility] SARS-COV-2 COVID-19 PFIZER VACCINE 2020-11-23 00:00:00 Completed [facility] SARS-COV-2 COVID-19 PFIZER VACCINE 2020-11-23 00:00:00 Completed [facility] SARS-COV-2 COVID-19 PFIZER VACCINE 2020-11-23 00:00:00 Completed [facility] SARS-COV-2 COVID-19 PFIZER VACCINE 2020-11-02 00:00:00 Completed [facility] SARS-COV-2 COVID-19 PFIZER VACCINE 2020-11-02 00:00:00 Completed [facility] SARS-COV-2 COVID-19 PFIZER VACCINE 2020-11-02 00:00:00 Completed [facility] SARS-COV-2 COVID-19 PFIZER VACCINE 2020-11-02 00:00:00 Completed [facility] SARS-COV-2 COVID-19 PFIZER VACCINE 2020-11-02 00:00:00 Completed [facility] SARS-COV-2 COVID-19 PFIZER VACCINE 2020-11-02 00:00:00 Completed [facility] SARS-COV-2 COVID-19 PFIZER VACCINE 2020-11-02 00:00:00 Completed [facility] SARS-COV-2 COVID-19 PFIZER VACCINE 2020-11-02 00:00:00 Completed [facility] SARS-COV-2 COVID-19 PFIZER VACCINE 2020-11-02 00:00:00 Completed [facility] SARS-COV-2 COVID-19 PFIZER VACCINE 2020-11-02 00:00:00 Completed [facility] SARS-COV-2 COVID-19 PFIZER VACCINE 2020-11-02 00:00:00 Completed [facility] SARS-COV-2 COVID-19 PFIZER VACCINE 2020-11-02 00:00:00 Completed [facility] SARS-COV-2 COVID-19 PFIZER VACCINE 2020-11-02 00:00:00 Completed [facility] SARS-COV-2 COVID-19 PFIZER VACCINE 2020-11-02 00:00:00 Completed [facility] SARS-COV-2 COVID-19 PFIZER VACCINE 2020-11-02 00:00:00 Completed [facility] SARS-COV-2 COVID-19 PFIZER VACCINE 2020-11-02 00:00:00 Completed [facility] SARS-COV-2 COVID-19 PFIZER VACCINE 2020-11-02 00:00:00 Completed [facility] SARS-COV-2 COVID-19 PFIZER VACCINE 2020-11-02 00:00:00 Completed [facility] DTaP, Unspecified Formulation 2004-07-11 00:00:00 Completed [facility] HIB 4 Dose Schedule 2004-07-11 00:00:00 Completed [facility] MMR 2004-07-11 00:00:00 Completed [facility] IPV 2004-07-11 00:00:00 Completed [facility] DTaP, Unspecified Formulation 2004-07-11 00:00:00 Completed [facility] HIB 4 Dose Schedule 2004-07-11 00:00:00 Completed [facility] MMR 2004-07-11 00:00:00 Completed [facility] IPV 2004-07-11 00:00:00 Completed [facility] DTaP, Unspecified Formulation 2004-07-11 00:00:00 Completed [facility] HIB 4 Dose Schedule 2004-07-11 00:00:00 Completed [facility] MMR 2004-07-11 00:00:00 Completed [facility] IPV 2004-07-11 00:00:00 Completed [facility] DTaP, Unspecified Formulation 2004-07-11 00:00:00 Completed [facility] HIB 4 Dose Schedule 2004-07-11 00:00:00 Completed [facility] MMR 2004-07-11 00:00:00 Completed [facility] IPV 2004-07-11 00:00:00 Completed [facility] DTaP, Unspecified Formulation 2004-07-11 00:00:00 Completed [facility] HIB 4 Dose Schedule 2004-07-11 00:00:00 Completed [facility] MMR 2004-07-11 00:00:00 Completed [facility] IPV 2004-07-11 00:00:00 Completed [facility] DTaP, Unspecified Formulation 2004-07-11 00:00:00 Completed [facility] HIB 4 Dose Schedule 2004-07-11 00:00:00 Completed [facility] MMR 2004-07-11 00:00:00 Completed [facility] IPV 2004-07-11 00:00:00 Completed [facility] DTaP, Unspecified Formulation 2004-07-11 00:00:00 Completed [facility] HIB 4 Dose Schedule 2004-07-11 00:00:00 Completed [facility] MMR 2004-07-11 00:00:00 Completed [facility] IPV 2004-07-11 00:00:00 Completed [facility] DTaP, Unspecified Formulation 2004-07-11 00:00:00 Completed [facility] HIB 4 Dose Schedule 2004-07-11 00:00:00 Completed [facility] MMR 2004-07-11 00:00:00 Completed [facility] IPV 2004-07-11 00:00:00 Completed [facility] DTaP, Unspecified Formulation 2004-07-11 00:00:00 Completed [facility] HIB 4 Dose Schedule 2004-07-11 00:00:00 Completed [facility] MMR 2004-07-11 00:00:00 Completed [facility] IPV 2004-07-11 00:00:00 Completed [facility] DTaP, Unspecified Formulation 2004-07-11 00:00:00 Completed [facility] HIB 4 Dose Schedule 2004-07-11 00:00:00 Completed [facility] MMR 2004-07-11 00:00:00 Completed [facility] IPV 2004-07-11 00:00:00 Completed [facility] DTaP, Unspecified Formulation 2004-07-11 00:00:00 Completed [facility] HIB 4 Dose Schedule 2004-07-11 00:00:00 Completed [facility] MMR 2004-07-11 00:00:00 Completed [facility] IPV 2004-07-11 00:00:00 Completed [facility] DTaP, Unspecified Formulation 2004-07-11 00:00:00 Completed [facility] HIB 4 Dose Schedule 2004-07-11 00:00:00 Completed [facility] MMR 2004-07-11 00:00:00 Completed [facility] IPV 2004-07-11 00:00:00 Completed [facility] DTaP, Unspecified Formulation 2004-07-11 00:00:00 Completed [facility] HIB 4 Dose Schedule 2004-07-11 00:00:00 Completed [facility] MMR 2004-07-11 00:00:00 Completed [facility] IPV 2004-07-11 00:00:00 Completed [facility] DTaP, Unspecified Formulation 2004-07-11 00:00:00 Completed [facility] HIB 4 Dose Schedule 2004-07-11 00:00:00 Completed [facility] MMR 2004-07-11 00:00:00 Completed [facility] IPV 2004-07-11 00:00:00 Completed [facility] DTaP, Unspecified Formulation 2004-07-11 00:00:00 Completed [facility] HIB 4 Dose Schedule 2004-07-11 00:00:00 Completed [facility] MMR 2004-07-11 00:00:00 Completed [facility] IPV 2004-07-11 00:00:00 Completed [facility] DTaP, Unspecified Formulation 2004-07-11 00:00:00 Completed [facility] HIB 4 Dose Schedule 2004-07-11 00:00:00 Completed [facility] MMR 2004-07-11 00:00:00 Completed [facility] IPV 2004-07-11 00:00:00 Completed [facility] DTaP, Unspecified Formulation 2004-07-11 00:00:00 Completed [facility] HIB 4 Dose Schedule 2004-07-11 00:00:00 Completed [facility] MMR 2004-07-11 00:00:00 Completed [facility] IPV 2004-07-11 00:00:00 Completed [facility] DTaP, Unspecified Formulation 2004-07-11 00:00:00 Completed [facility] HIB 4 Dose Schedule 2004-07-11 00:00:00 Completed [facility] MMR 2004-07-11 00:00:00 Completed [facility] IPV 2004-07-11 00:00:00 Completed [facility] DTaP, Unspecified Formulation 2003-02-03 00:00:00 Completed [facility] Hep B, Adol or Pedi Dosage 2003-02-03 00:00:00 Completed [facility] IPV 2003-02-03 00:00:00 Completed [facility] DTaP, Unspecified Formulation 2003-02-03 00:00:00 Completed [facility] Hep B, Adol or Pedi Dosage 2003-02-03 00:00:00 Completed [facility] IPV 2003-02-03 00:00:00 Completed [facility] DTaP, Unspecified Formulation 2003-02-03 00:00:00 Completed [facility] Hep B, Adol or Pedi Dosage 2003-02-03 00:00:00 Completed [facility] IPV 2003-02-03 00:00:00 Completed [facility] DTaP, Unspecified Formulation 2003-02-03 00:00:00 Completed [facility] Hep B, Adol or Pedi Dosage 2003-02-03 00:00:00 Completed [facility] IPV 2003-02-03 00:00:00 Completed [facility] DTaP, Unspecified Formulation 2003-02-03 00:00:00 Completed [facility] Hep B, Adol or Pedi Dosage 2003-02-03 00:00:00 Completed [facility] IPV 2003-02-03 00:00:00 Completed [facility] DTaP, Unspecified Formulation 2003-02-03 00:00:00 Completed [facility] Hep B, Adol or Pedi Dosage 2003-02-03 00:00:00 Completed [facility] IPV 2003-02-03 00:00:00 Completed [facility] DTaP, Unspecified Formulation 2003-02-03 00:00:00 Completed [facility] Hep B, Adol or Pedi Dosage 2003-02-03 00:00:00 Completed [facility] IPV 2003-02-03 00:00:00 Completed [facility] DTaP, Unspecified Formulation 2003-02-03 00:00:00 Completed [facility] Hep B, Adol or Pedi Dosage 2003-02-03 00:00:00 Completed [facility] IPV 2003-02-03 00:00:00 Completed [facility] DTaP, Unspecified Formulation 2003-02-03 00:00:00 Completed [facility] Hep B, Adol or Pedi Dosage 2003-02-03 00:00:00 Completed [facility] IPV 2003-02-03 00:00:00 Completed [facility] DTaP, Unspecified Formulation 2003-02-03 00:00:00 Completed [facility] Hep B, Adol or Pedi Dosage 2003-02-03 00:00:00 Completed [facility] IPV 2003-02-03 00:00:00 Completed [facility] DTaP, Unspecified Formulation 2003-02-03 00:00:00 Completed [facility] Hep B, Adol or Pedi Dosage 2003-02-03 00:00:00 Completed [facility] IPV 2003-02-03 00:00:00 Completed [facility] DTaP, Unspecified Formulation 2003-02-03 00:00:00 Completed [facility] Hep B, Adol or Pedi Dosage 2003-02-03 00:00:00 Completed [facility] IPV 2003-02-03 00:00:00 Completed [facility] DTaP, Unspecified Formulation 2003-02-03 00:00:00 Completed [facility] Hep B, Adol or Pedi Dosage 2003-02-03 00:00:00 Completed [facility] IPV 2003-02-03 00:00:00 Completed [facility] DTaP, Unspecified Formulation 2003-02-03 00:00:00 Completed [facility] Hep B, Adol or Pedi Dosage 2003-02-03 00:00:00 Completed [facility] IPV 2003-02-03 00:00:00 Completed [facility] DTaP, Unspecified Formulation 2003-02-03 00:00:00 Completed [facility] Hep B, Adol or Pedi Dosage 2003-02-03 00:00:00 Completed [facility] IPV 2003-02-03 00:00:00 Completed [facility] DTaP, Unspecified Formulation 2003-02-03 00:00:00 Completed [facility] Hep B, Adol or Pedi Dosage 2003-02-03 00:00:00 Completed [facility] IPV 2003-02-03 00:00:00 Completed [facility] DTaP, Unspecified Formulation 2003-02-03 00:00:00 Completed [facility] Hep B, Adol or Pedi Dosage 2003-02-03 00:00:00 Completed [facility] IPV 2003-02-03 00:00:00 Completed [facility] DTaP, Unspecified Formulation 2003-02-03 00:00:00 Completed [facility] Hep B, Adol or Pedi Dosage 2003-02-03 00:00:00 Completed [facility] IPV 2003-02-03 00:00:00 Completed [facility] DTaP, Unspecified Formulation 2002-07-27 00:00:00 Completed [facility] Hep B, Adol or Pedi Dosage 2002-07-27 00:00:00 Completed [facility] HIB 4 Dose Schedule 2002-07-27 00:00:00 Completed [facility] IPV 2002-07-27 00:00:00 Completed [facility] DTaP, Unspecified Formulation 2002-07-27 00:00:00 Completed [facility] Hep B, Adol or Pedi Dosage 2002-07-27 00:00:00 Completed [facility] HIB 4 Dose Schedule 2002-07-27 00:00:00 Completed [facility] IPV 2002-07-27 00:00:00 Completed [facility] DTaP, Unspecified Formulation 2002-07-27 00:00:00 Completed [facility] Hep B, Adol or Pedi Dosage 2002-07-27 00:00:00 Completed [facility] HIB 4 Dose Schedule 2002-07-27 00:00:00 Completed [facility] IPV 2002-07-27 00:00:00 Completed [facility] DTaP, Unspecified Formulation 2002-07-27 00:00:00 Completed [facility] Hep B, Adol or Pedi Dosage 2002-07-27 00:00:00 Completed [facility] HIB 4 Dose Schedule 2002-07-27 00:00:00 Completed [facility] IPV 2002-07-27 00:00:00 Completed [facility] DTaP, Unspecified Formulation 2002-07-27 00:00:00 Completed [facility] Hep B, Adol or Pedi Dosage 2002-07-27 00:00:00 Completed [facility] HIB 4 Dose Schedule 2002-07-27 00:00:00 Completed [facility] IPV 2002-07-27 00:00:00 Completed [facility] DTaP, Unspecified Formulation 2002-07-27 00:00:00 Completed [facility] Hep B, Adol or Pedi Dosage 2002-07-27 00:00:00 Completed [facility] HIB 4 Dose Schedule 2002-07-27 00:00:00 Completed [facility] IPV 2002-07-27 00:00:00 Completed [facility] DTaP, Unspecified Formulation 2002-07-27 00:00:00 Completed [facility] Hep B, Adol or Pedi Dosage 2002-07-27 00:00:00 Completed [facility] HIB 4 Dose Schedule 2002-07-27 00:00:00 Completed [facility] IPV 2002-07-27 00:00:00 Completed [facility] DTaP, Unspecified Formulation 2002-07-27 00:00:00 Completed [facility] Hep B, Adol or Pedi Dosage 2002-07-27 00:00:00 Completed [facility] HIB 4 Dose Schedule 2002-07-27 00:00:00 Completed [facility] IPV 2002-07-27 00:00:00 Completed [facility] DTaP, Unspecified Formulation 2002-07-27 00:00:00 Completed [facility] Hep B, Adol or Pedi Dosage 2002-07-27 00:00:00 Completed [facility] HIB 4 Dose Schedule 2002-07-27 00:00:00 Completed [facility] IPV 2002-07-27 00:00:00 Completed [facility] DTaP, Unspecified Formulation 2002-07-27 00:00:00 Completed [facility] Hep B, Adol or Pedi Dosage 2002-07-27 00:00:00 Completed [facility] HIB 4 Dose Schedule 2002-07-27 00:00:00 Completed [facility] IPV 2002-07-27 00:00:00 Completed [facility] DTaP, Unspecified Formulation 2002-07-27 00:00:00 Completed [facility] Hep B, Adol or Pedi Dosage 2002-07-27 00:00:00 Completed [facility] HIB 4 Dose Schedule 2002-07-27 00:00:00 Completed [facility] IPV 2002-07-27 00:00:00 Completed [facility] DTaP, Unspecified Formulation 2002-07-27 00:00:00 Completed [facility] Hep B, Adol or Pedi Dosage 2002-07-27 00:00:00 Completed [facility] HIB 4 Dose Schedule 2002-07-27 00:00:00 Completed [facility] IPV 2002-07-27 00:00:00 Completed [facility] DTaP, Unspecified Formulation 2002-07-27 00:00:00 Completed [facility] Hep B, Adol or Pedi Dosage 2002-07-27 00:00:00 Completed [facility] HIB 4 Dose Schedule 2002-07-27 00:00:00 Completed [facility] IPV 2002-07-27 00:00:00 Completed [facility] DTaP, Unspecified Formulation 2002-07-27 00:00:00 Completed [facility] Hep B, Adol or Pedi Dosage 2002-07-27 00:00:00 Completed [facility] HIB 4 Dose Schedule 2002-07-27 00:00:00 Completed [facility] IPV 2002-07-27 00:00:00 Completed [facility] DTaP, Unspecified Formulation 2002-07-27 00:00:00 Completed [facility] Hep B, Adol or Pedi Dosage 2002-07-27 00:00:00 Completed [facility] HIB 4 Dose Schedule 2002-07-27 00:00:00 Completed [facility] IPV 2002-07-27 00:00:00 Completed [facility] DTaP, Unspecified Formulation 2002-07-27 00:00:00 Completed [facility] Hep B, Adol or Pedi Dosage 2002-07-27 00:00:00 Completed [facility] HIB 4 Dose Schedule 2002-07-27 00:00:00 Completed [facility] IPV 2002-07-27 00:00:00 Completed [facility] DTaP, Unspecified Formulation 2002-07-27 00:00:00 Completed [facility] Hep B, Adol or Pedi Dosage 2002-07-27 00:00:00 Completed [facility] HIB 4 Dose Schedule 2002-07-27 00:00:00 Completed [facility] IPV 2002-07-27 00:00:00 Completed [facility] DTaP, Unspecified Formulation 2002-07-27 00:00:00 Completed [facility] Hep B, Adol or Pedi Dosage 2002-07-27 00:00:00 Completed [facility] HIB 4 Dose Schedule 2002-07-27 00:00:00 Completed [facility] IPV 2002-07-27 00:00:00 Completed [facility] DTaP, Unspecified Formulation 2002-06-23 00:00:00 Completed [facility] HEPATITIS A 2002-06-23 00:00:00 Completed [facility] Hep B, Adol or Pedi Dosage 2002-06-23 00:00:00 Completed [facility] HIB 4 Dose Schedule 2002-06-23 00:00:00 Completed [facility] MMR 2002-06-23 00:00:00 Completed [facility] Pneumococcal 7 Conjugate, PCV7 (Prevnar7) 2002-06-23 00:00:00 Completed [facility] Varicella (varivax)(chicken pox) 2002-06-23 00:00:00 Completed [facility] IPV 2002-06-23 00:00:00 Completed [facility] DTaP, Unspecified Formulation 2002-06-23 00:00:00 Completed [facility] HEPATITIS A 2002-06-23 00:00:00 Completed [facility] Hep B, Adol or Pedi Dosage 2002-06-23 00:00:00 Completed [facility] HIB 4 Dose Schedule 2002-06-23 00:00:00 Completed [facility] MMR 2002-06-23 00:00:00 Completed [facility] Pneumococcal 7 Conjugate, PCV7 (Prevnar7) 2002-06-23 00:00:00 Completed [facility] Varicella (varivax)(chicken pox) 2002-06-23 00:00:00 Completed [facility] IPV 2002-06-23 00:00:00 Completed [facility] DTaP, Unspecified Formulation 2002-06-23 00:00:00 Completed [facility] HEPATITIS A 2002-06-23 00:00:00 Completed [facility] Hep B, Adol or Pedi Dosage 2002-06-23 00:00:00 Completed [facility] HIB 4 Dose Schedule 2002-06-23 00:00:00 Completed [facility] MMR 2002-06-23 00:00:00 Completed [facility] Pneumococcal 7 Conjugate, PCV7 (Prevnar7) 2002-06-23 00:00:00 Completed [facility] Varicella (varivax)(chicken pox) 2002-06-23 00:00:00 Completed [facility] IPV 2002-06-23 00:00:00 Completed [facility] DTaP, Unspecified Formulation 2002-06-23 00:00:00 Completed [facility] HEPATITIS A 2002-06-23 00:00:00 Completed [facility] Hep B, Adol or Pedi Dosage 2002-06-23 00:00:00 Completed [facility] HIB 4 Dose Schedule 2002-06-23 00:00:00 Completed [facility] MMR 2002-06-23 00:00:00 Completed [facility] Pneumococcal 7 Conjugate, PCV7 (Prevnar7) 2002-06-23 00:00:00 Completed [facility] Varicella (varivax)(chicken pox) 2002-06-23 00:00:00 Completed [facility] IPV 2002-06-23 00:00:00 Completed [facility] DTaP, Unspecified Formulation 2002-06-23 00:00:00 Completed [facility] HEPATITIS A 2002-06-23 00:00:00 Completed [facility] Hep B, Adol or Pedi Dosage 2002-06-23 00:00:00 Completed [facility] HIB 4 Dose Schedule 2002-06-23 00:00:00 Completed [facility] MMR 2002-06-23 00:00:00 Completed [facility] Pneumococcal 7 Conjugate, PCV7 (Prevnar7) 2002-06-23 00:00:00 Completed [facility] Varicella (varivax)(chicken pox) 2002-06-23 00:00:00 Completed [facility] IPV 2002-06-23 00:00:00 Completed [facility] DTaP, Unspecified Formulation 2002-06-23 00:00:00 Completed [facility] HEPATITIS A 2002-06-23 00:00:00 Completed [facility] Hep B, Adol or Pedi Dosage 2002-06-23 00:00:00 Completed [facility] HIB 4 Dose Schedule 2002-06-23 00:00:00 Completed [facility] MMR 2002-06-23 00:00:00 Completed [facility] Pneumococcal 7 Conjugate, PCV7 (Prevnar7) 2002-06-23 00:00:00 Completed [facility] Varicella (varivax)(chicken pox) 2002-06-23 00:00:00 Completed [facility] IPV 2002-06-23 00:00:00 Completed [facility] DTaP, Unspecified Formulation 2002-06-23 00:00:00 Completed [facility] HEPATITIS A 2002-06-23 00:00:00 Completed [facility] Hep B, Adol or Pedi Dosage 2002-06-23 00:00:00 Completed [facility] HIB 4 Dose Schedule 2002-06-23 00:00:00 Completed [facility] MMR 2002-06-23 00:00:00 Completed [facility] Pneumococcal 7 Conjugate, PCV7 (Prevnar7) 2002-06-23 00:00:00 Completed [facility] Varicella (varivax)(chicken pox) 2002-06-23 00:00:00 Completed [facility] IPV 2002-06-23 00:00:00 Completed [facility] DTaP, Unspecified Formulation 2002-06-23 00:00:00 Completed [facility] HEPATITIS A 2002-06-23 00:00:00 Completed [facility] Hep B, Adol or Pedi Dosage 2002-06-23 00:00:00 Completed [facility] HIB 4 Dose Schedule 2002-06-23 00:00:00 Completed [facility] MMR 2002-06-23 00:00:00 Completed [facility] Pneumococcal 7 Conjugate, PCV7 (Prevnar7) 2002-06-23 00:00:00 Completed [facility] Varicella (varivax)(chicken pox) 2002-06-23 00:00:00 Completed [facility] IPV 2002-06-23 00:00:00 Completed [facility] DTaP, Unspecified Formulation 2002-06-23 00:00:00 Completed [facility] HEPATITIS A 2002-06-23 00:00:00 Completed [facility] Hep B, Adol or Pedi Dosage 2002-06-23 00:00:00 Completed [facility] HIB 4 Dose Schedule 2002-06-23 00:00:00 Completed [facility] MMR 2002-06-23 00:00:00 Completed [facility] Pneumococcal 7 Conjugate, PCV7 (Prevnar7) 2002-06-23 00:00:00 Completed [facility] Varicella (varivax)(chicken pox) 2002-06-23 00:00:00 Completed [facility] IPV 2002-06-23 00:00:00 Completed [facility] DTaP, Unspecified Formulation 2002-06-23 00:00:00 Completed [facility] HEPATITIS A 2002-06-23 00:00:00 Completed [facility] Hep B, Adol or Pedi Dosage 2002-06-23 00:00:00 Completed [facility] HIB 4 Dose Schedule 2002-06-23 00:00:00 Completed [facility] MMR 2002-06-23 00:00:00 Completed [facility] Pneumococcal 7 Conjugate, PCV7 (Prevnar7) 2002-06-23 00:00:00 Completed [facility] Varicella (varivax)(chicken pox) 2002-06-23 00:00:00 Completed [facility] IPV 2002-06-23 00:00:00 Completed [facility] DTaP, Unspecified Formulation 2002-06-23 00:00:00 Completed [facility] HEPATITIS A 2002-06-23 00:00:00 Completed [facility] Hep B, Adol or Pedi Dosage 2002-06-23 00:00:00 Completed [facility] HIB 4 Dose Schedule 2002-06-23 00:00:00 Completed [facility] MMR 2002-06-23 00:00:00 Completed [facility] Pneumococcal 7 Conjugate, PCV7 (Prevnar7) 2002-06-23 00:00:00 Completed [facility] Varicella (varivax)(chicken pox) 2002-06-23 00:00:00 Completed [facility] IPV 2002-06-23 00:00:00 Completed [facility] DTaP, Unspecified Formulation 2002-06-23 00:00:00 Completed [facility] HEPATITIS A 2002-06-23 00:00:00 Completed [facility] Hep B, Adol or Pedi Dosage 2002-06-23 00:00:00 Completed [facility] HIB 4 Dose Schedule 2002-06-23 00:00:00 Completed [facility] MMR 2002-06-23 00:00:00 Completed [facility] Pneumococcal 7 Conjugate, PCV7 (Prevnar7) 2002-06-23 00:00:00 Completed [facility] Varicella (varivax)(chicken pox) 2002-06-23 00:00:00 Completed [facility] IPV 2002-06-23 00:00:00 Completed [facility] DTaP, Unspecified Formulation 2002-06-23 00:00:00 Completed [facility] HEPATITIS A 2002-06-23 00:00:00 Completed [facility] Hep B, Adol or Pedi Dosage 2002-06-23 00:00:00 Completed [facility] HIB 4 Dose Schedule 2002-06-23 00:00:00 Completed [facility] MMR 2002-06-23 00:00:00 Completed [facility] Pneumococcal 7 Conjugate, PCV7 (Prevnar7) 2002-06-23 00:00:00 Completed [facility] Varicella (varivax)(chicken pox) 2002-06-23 00:00:00 Completed [facility] IPV 2002-06-23 00:00:00 Completed [facility] DTaP, Unspecified Formulation 2002-06-23 00:00:00 Completed [facility] HEPATITIS A 2002-06-23 00:00:00 Completed [facility] Hep B, Adol or Pedi Dosage 2002-06-23 00:00:00 Completed [facility] HIB 4 Dose Schedule 2002-06-23 00:00:00 Completed [facility] MMR 2002-06-23 00:00:00 Completed [facility] Pneumococcal 7 Conjugate, PCV7 (Prevnar7) 2002-06-23 00:00:00 Completed [facility] Varicella (varivax)(chicken pox) 2002-06-23 00:00:00 Completed [facility] IPV 2002-06-23 00:00:00 Completed [facility] DTaP, Unspecified Formulation 2002-06-23 00:00:00 Completed [facility] HEPATITIS A 2002-06-23 00:00:00 Completed [facility] Hep B, Adol or Pedi Dosage 2002-06-23 00:00:00 Completed [facility] HIB 4 Dose Schedule 2002-06-23 00:00:00 Completed [facility] MMR 2002-06-23 00:00:00 Completed [facility] Pneumococcal 7 Conjugate, PCV7 (Prevnar7) 2002-06-23 00:00:00 Completed [facility] Varicella (varivax)(chicken pox) 2002-06-23 00:00:00 Completed [facility] IPV 2002-06-23 00:00:00 Completed [facility] DTaP, Unspecified Formulation 2002-06-23 00:00:00 Completed [facility] HEPATITIS A 2002-06-23 00:00:00 Completed [facility] Hep B, Adol or Pedi Dosage 2002-06-23 00:00:00 Completed [facility] HIB 4 Dose Schedule 2002-06-23 00:00:00 Completed [facility] MMR 2002-06-23 00:00:00 Completed [facility] Pneumococcal 7 Conjugate, PCV7 (Prevnar7) 2002-06-23 00:00:00 Completed [facility] Varicella (varivax)(chicken pox) 2002-06-23 00:00:00 Completed [facility] IPV 2002-06-23 00:00:00 Completed [facility] DTaP, Unspecified Formulation 2002-06-23 00:00:00 Completed [facility] HEPATITIS A 2002-06-23 00:00:00 Completed [facility] Hep B, Adol or Pedi Dosage 2002-06-23 00:00:00 Completed [facility] HIB 4 Dose Schedule 2002-06-23 00:00:00 Completed [facility] MMR 2002-06-23 00:00:00 Completed [facility] Pneumococcal 7 Conjugate, PCV7 (Prevnar7) 2002-06-23 00:00:00 Completed [facility] Varicella (varivax)(chicken pox) 2002-06-23 00:00:00 Completed [facility] IPV 2002-06-23 00:00:00 Completed [facility] DTaP, Unspecified Formulation 2002-06-23 00:00:00 Completed [facility] HEPATITIS A 2002-06-23 00:00:00 Completed [facility] Hep B, Adol or Pedi Dosage 2002-06-23 00:00:00 Completed [facility] HIB 4 Dose Schedule 2002-06-23 00:00:00 Completed [facility] MMR 2002-06-23 00:00:00 Completed [facility] Pneumococcal 7 Conjugate, PCV7 (Prevnar7) 2002-06-23 00:00:00 Completed [facility] Varicella (varivax)(chicken pox) 2002-06-23 00:00:00 Completed [facility] IPV 2002-06-23 00:00:00 Completed [facility] Hep B, Adol or Pedi Dosage 2001-07-27 00:00:00 Completed [facility] Hep B, Adol or Pedi Dosage 2001-07-27 00:00:00 Completed [facility] Hep B, Adol or Pedi Dosage 2001-07-27 00:00:00 Completed [facility] Hep B, Adol or Pedi Dosage 2001-07-27 00:00:00 Completed [facility] Hep B, Adol or Pedi Dosage 2001-07-27 00:00:00 Completed [facility] Hep B, Adol or Pedi Dosage 2001-07-27 00:00:00 Completed [facility] Hep B, Adol or Pedi Dosage 2001-07-27 00:00:00 Completed [facility] Hep B, Adol or Pedi Dosage 2001-07-27 00:00:00 Completed [facility] Hep B, Adol or Pedi Dosage 2001-07-27 00:00:00 Completed [facility] Hep B, Adol or Pedi Dosage 2001-07-27 00:00:00 Completed [facility] Hep B, Adol or Pedi Dosage 2001-07-27 00:00:00 Completed [facility] Hep B, Adol or Pedi Dosage 2001-07-27 00:00:00 Completed [facility] Hep B, Adol or Pedi Dosage 2001-07-27 00:00:00 Completed [facility] Hep B, Adol or Pedi Dosage 2001-07-27 00:00:00 Completed [facility] Hep B, Adol or Pedi Dosage 2001-07-27 00:00:00 Completed [facility] Hep B, Adol or Pedi Dosage 2001-07-27 00:00:00 Completed [facility] Hep B, Adol or Pedi Dosage 2001-07-27 00:00:00 Completed [facility] Hep B, Adol or Pedi Dosage 2001-07-27 00:00:00 Completed [facility] Varicella (varivax)(chicken pox) 2001-06-23 00:00:00 Completed [facility] Varicella (varivax)(chicken pox) 2001-06-23 00:00:00 Completed [facility] Varicella (varivax)(chicken pox) 2001-06-23 00:00:00 Completed [facility] Varicella (varivax)(chicken pox) 2001-06-23 00:00:00 Completed [facility] Varicella (varivax)(chicken pox) 2001-06-23 00:00:00 Completed [facility] Varicella (varivax)(chicken pox) 2001-06-23 00:00:00 Completed [facility] Varicella (varivax)(chicken pox) 2001-06-23 00:00:00 Completed [facility] Varicella (varivax)(chicken pox) 2001-06-23 00:00:00 Completed [facility] Varicella (varivax)(chicken pox) 2001-06-23 00:00:00 Completed [facility] Varicella (varivax)(chicken pox) 2001-06-23 00:00:00 Completed [facility] Varicella (varivax)(chicken pox) 2001-06-23 00:00:00 Completed [facility] Varicella (varivax)(chicken pox) 2001-06-23 00:00:00 Completed [facility] Varicella (varivax)(chicken pox) 2001-06-23 00:00:00 Completed [facility] Varicella (varivax)(chicken pox) 2001-06-23 00:00:00 Completed [facility] Varicella (varivax)(chicken pox) 2001-06-23 00:00:00 Completed [facility] Varicella (varivax)(chicken pox) 2001-06-23 00:00:00 Completed [facility] Varicella (varivax)(chicken pox) 2001-06-23 00:00:00 Completed [facility] Varicella (varivax)(chicken pox) 2001-06-23 00:00:00 Completed [facility] Hep B, Adol or Pedi Dosage 1999 00:00:00 Completed [facility] Hep B, Adol or Pedi Dosage 1999 00:00:00 Completed [facility] Hep B, Adol or Pedi Dosage 1999 00:00:00 Completed [facility] Hep B, Adol or Pedi Dosage 1999 00:00:00 Completed [facility] Hep B, Adol or Pedi Dosage 1999 00:00:00 Completed [facility] Hep B, Adol or Pedi Dosage 1999 00:00:00 Completed [facility] Hep B, Adol or Pedi Dosage 1999 00:00:00 Completed [facility] Hep B, Adol or Pedi Dosage 1999 00:00:00 Completed [facility] Hep B, Adol or Pedi Dosage 1999 00:00:00 Completed [facility] Hep B, Adol or Pedi Dosage 1999 00:00:00 Completed [facility] Hep B, Adol or Pedi Dosage 1999 00:00:00 Completed [facility] Hep B, Adol or Pedi Dosage 1999 00:00:00 Completed [facility] Hep B, Adol or Pedi Dosage 1999 00:00:00 Completed [facility] Hep B, Adol or Pedi Dosage 1999 00:00:00 Completed [facility] Hep B, Adol or Pedi Dosage 1999 00:00:00 Completed [facility] Hep B, Adol or Pedi Dosage 1999 00:00:00 Completed [facility] Hep B, Adol or Pedi Dosage 1999 00:00:00 Completed [facility] Hep B, Adol or Pedi Dosage 1999 00:00:00 Completed [facility] TDAP Unknown Completed [facility] HPV9 Unknown Completed [facility] Varicella (varivax)(chicken pox) Unknown Completed [facility] HPV9 Unknown Completed [facility] SARS-COV-2 COVID-19 PFIZER VACCINE Unknown Completed [facility] SARS-COV-2 COVID-19 PFIZER VACCINE Unknown Completed [facility] DTaP, Unspecified Formulation Unknown Completed [facility] DTaP, Unspecified Formulation Unknown Completed [facility] DTaP, Unspecified Formulation Unknown Completed [facility] DTaP, Unspecified Formulation Unknown Completed [facility] HEPATITIS A Unknown Completed [facility] Hep B, Adol or Pedi Dosage Unknown Completed [facility] Hep B, Adol or Pedi Dosage Unknown Completed [facility] Hep B, Adol or Pedi Dosage Unknown Completed [facility] Hep B, Adol or Pedi Dosage Unknown Completed [facility] Hep B, Adol or Pedi Dosage Unknown Completed [facility] HIB 4 Dose Schedule Unknown Completed [facility] HIB 4 Dose Schedule Unknown Completed [facility] HIB 4 Dose Schedule Unknown Completed [facility] MMR Unknown Completed [facility] MMR Unknown Completed [facility] Pneumococcal 7 Conjugate, PCV7 (Prevnar7) Unknown Completed [facility] Varicella (varivax)(chicken pox) Unknown Completed [facility] Varicella (varivax)(chicken pox) Unknown Completed [facility] IPV Unknown Completed [facility] IPV Unknown Completed [facility] IPV Unknown Completed [facility] IPV Unknown Completed [facility] TDAP Unknown Completed [facility] HPV9 Unknown Completed [facility] Varicella (varivax)(chicken pox) Unknown Completed [facility] HPV9 Unknown Completed [facility] SARS-COV-2 COVID-19 PFIZER VACCINE Unknown Completed [facility] SARS-COV-2 COVID-19 PFIZER VACCINE Unknown Completed [facility] DTaP, Unspecified Formulation Unknown Completed [facility] DTaP, Unspecified Formulation Unknown Completed [facility] DTaP, Unspecified Formulation Unknown Completed [facility] DTaP, Unspecified Formulation Unknown Completed [facility] HEPATITIS A Unknown Completed [facility] Hep B, Adol or Pedi Dosage Unknown Completed [facility] Hep B, Adol or Pedi Dosage Unknown Completed [facility] Hep B, Adol or Pedi Dosage Unknown Completed [facility] Hep B, Adol or Pedi Dosage Unknown Completed [facility] Hep B, Adol or Pedi Dosage Unknown Completed [facility] HIB 4 Dose Schedule Unknown Completed [facility] HIB 4 Dose Schedule Unknown Completed [facility] HIB 4 Dose Schedule Unknown Completed [facility] MMR Unknown Completed [facility] MMR Unknown Completed [facility] Pneumococcal 7 Conjugate, PCV7 (Prevnar7) Unknown Completed [facility] Varicella (varivax)(chicken pox) Unknown Completed [facility] Varicella (varivax)(chicken pox) Unknown Completed [facility] IPV Unknown Completed [facility] IPV Unknown Completed [facility] IPV Unknown Completed [facility] IPV Unknown Completed [facility] TDAP Unknown Completed [facility] HPV9 Unknown Completed [facility] Varicella (varivax)(chicken pox) Unknown Completed [facility] HPV9 Unknown Completed [facility] SARS-COV-2 COVID-19 PFIZER VACCINE Unknown Completed [facility] SARS-COV-2 COVID-19 PFIZER VACCINE Unknown Completed [facility] DTaP, Unspecified Formulation Unknown Completed [facility] DTaP, Unspecified Formulation Unknown Completed [facility] DTaP, Unspecified Formulation Unknown Completed [facility] DTaP, Unspecified Formulation Unknown Completed [facility] HEPATITIS A Unknown Completed [facility] Hep B, Adol or Pedi Dosage Unknown Completed [facility] Hep B, Adol or Pedi Dosage Unknown Completed [facility] Hep B, Adol or Pedi Dosage Unknown Completed [facility] Hep B, Adol or Pedi Dosage Unknown Completed [facility] Hep B, Adol or Pedi Dosage Unknown Completed [facility] HIB 4 Dose Schedule Unknown Completed [facility] HIB 4 Dose Schedule Unknown Completed [facility] HIB 4 Dose Schedule Unknown Completed [facility] MMR Unknown Completed [facility] MMR Unknown Completed [facility] Pneumococcal 7 Conjugate, PCV7 (Prevnar7) Unknown Completed [facility] Varicella (varivax)(chicken pox) Unknown Completed [facility] Varicella (varivax)(chicken pox) Unknown Completed [facility] IPV Unknown Completed [facility] IPV Unknown Completed [facility] IPV Unknown Completed [facility] IPV Unknown Completed [facility] TDAP Unknown Completed [facility] HPV9 Unknown Completed [facility] Varicella (varivax)(chicken pox) Unknown Completed [facility] HPV9 Unknown Completed [facility] SARS-COV-2 COVID-19 PFIZER VACCINE Unknown Completed [facility] SARS-COV-2 COVID-19 PFIZER VACCINE Unknown Completed [facility] DTaP, Unspecified Formulation Unknown Completed [facility] DTaP, Unspecified Formulation Unknown Completed [facility] DTaP, Unspecified Formulation Unknown Completed [facility] DTaP, Unspecified Formulation Unknown Completed [facility] HEPATITIS A Unknown Completed [facility] Hep B, Adol or Pedi Dosage Unknown Completed [facility] Hep B, Adol or Pedi Dosage Unknown Completed [facility] Hep B, Adol or Pedi Dosage Unknown Completed [facility] Hep B, Adol or Pedi Dosage Unknown Completed [facility] Hep B, Adol or Pedi Dosage Unknown Completed [facility] HIB 4 Dose Schedule Unknown Completed [facility] HIB 4 Dose Schedule Unknown Completed [facility] HIB 4 Dose Schedule Unknown Completed [facility] MMR Unknown Completed [facility] MMR Unknown Completed [facility] Pneumococcal 7 Conjugate, PCV7 (Prevnar7) Unknown Completed [facility] Varicella (varivax)(chicken pox) Unknown Completed [facility] Varicella (varivax)(chicken pox) Unknown Completed [facility] IPV Unknown Completed [facility] IPV Unknown Completed [facility] IPV Unknown Completed [facility] IPV Unknown Completed [facility] TDAP Unknown Completed [facility] HPV9 Unknown Completed [facility] Varicella (varivax)(chicken pox) Unknown Completed [facility] HPV9 Unknown Completed [facility] SARS-COV-2 COVID-19 PFIZER VACCINE Unknown Completed [facility] SARS-COV-2 COVID-19 PFIZER VACCINE Unknown Completed [facility] DTaP, Unspecified Formulation Unknown Completed [facility] DTaP, Unspecified Formulation Unknown Completed [facility] DTaP, Unspecified Formulation Unknown Completed [facility] DTaP, Unspecified Formulation Unknown Completed [facility] HEPATITIS A Unknown Completed [facility] Hep B, Adol or Pedi Dosage Unknown Completed [facility] Hep B, Adol or Pedi Dosage Unknown Completed [facility] Hep B, Adol or Pedi Dosage Unknown Completed [facility] Hep B, Adol or Pedi Dosage Unknown Completed [facility] Hep B, Adol or Pedi Dosage Unknown Completed [facility] HIB 4 Dose Schedule Unknown Completed [facility] HIB 4 Dose Schedule Unknown Completed [facility] HIB 4 Dose Schedule Unknown Completed [facility] MMR Unknown Completed [facility] MMR Unknown Completed [facility] Pneumococcal 7 Conjugate, PCV7 (Prevnar7) Unknown Completed [facility] Varicella (varivax)(chicken pox) Unknown Completed [facility] Varicella (varivax)(chicken pox) Unknown Completed [facility] IPV Unknown Completed [facility] IPV Unknown Completed [facility] IPV Unknown Completed [facility] IPV Unknown Completed [facility] TDAP Unknown Completed [facility] HPV9 Unknown Completed [facility] Varicella (varivax)(chicken pox) Unknown Completed [facility] HPV9 Unknown Completed [facility] SARS-COV-2 COVID-19 PFIZER VACCINE Unknown Completed [facility] SARS-COV-2 COVID-19 PFIZER VACCINE Unknown Completed [facility] DTaP, Unspecified Formulation Unknown Completed [facility] DTaP, Unspecified Formulation Unknown Completed [facility] [facility], Un[facility] Formulation Unknown Completed [facility] DTaP, Unspecified Formulation Unknown Completed [facility] HEPATITIS A Unknown Completed [facility] Hep B, Adol or Pedi Dosage Unknown Completed [facility] Hep B, Adol or Pedi Dosage Unknown Completed [facility] Hep B, Adol or Pedi Dosage Unknown Completed [facility] Hep B, Adol or Pedi Dosage Unknown Completed [facility] Hep B, Adol or Pedi Dosage Unknown Completed [facility] HIB 4 Dose Schedule Unknown Completed [facility] HIB 4 Dose Schedule Unknown Completed [facility] HIB 4 Dose Schedule Unknown Completed [facility] MMR Unknown Completed [facility] MMR Unknown Completed [facility] Pneumococcal 7 Conjugate, PCV7 (Prevnar7) Unknown Completed [facility] Varicella (varivax)(chicken pox) Unknown Completed [facility] Varicella (varivax)(chicken pox) Unknown Completed [facility] IPV Unknown Completed [facility] IPV Unknown Completed [facility] IPV Unknown Completed [facility] IPV Unknown Completed [facility] TDAP Unknown Completed [facility] HPV9 Unknown Completed [facility] Varicella (varivax)(chicken pox) Unknown Completed [facility] HPV9 Unknown Completed [facility] SARS-COV-2 COVID-19 PFIZER VACCINE Unknown Completed [facility] SARS-COV-2 COVID-19 PFIZER VACCINE Unknown Completed [facility] DTaP, Unspecified Formulation Unknown Completed [facility] DTaP, Unspecified Formulation Unknown Completed [facility] DTaP, Unspecified Formulation Unknown Completed [facility] DTaP, Unspecified Formulation Unknown Completed [facility] HEPATITIS A Unknown Completed [facility] Hep B, Adol or Pedi Dosage Unknown Completed [facility] Hep B, Adol or Pedi Dosage Unknown Completed [facility] Hep B, Adol or Pedi Dosage Unknown Completed [facility] Hep B, Adol or Pedi Dosage Unknown Completed [facility] Hep B, Adol or Pedi Dosage Unknown Completed [facility] HIB 4 Dose Schedule Unknown Completed [facility] HIB 4 Dose Schedule Unknown Completed [facility] HIB 4 Dose Schedule Unknown Completed [facility] MMR Unknown Completed [facility] MMR Unknown Completed [facility] Pneumococcal 7 Conjugate, PCV7 (Prevnar7) Unknown Completed [facility] Varicella (varivax)(chicken pox) Unknown Completed [facility] Varicella (varivax)(chicken pox) Unknown Completed [facility] IPV Unknown Completed [facility] IPV Unknown Completed [facility] IPV Unknown Completed [facility] IPV Unknown Completed [facility] TDAP Unknown Completed [facility] HPV9 Unknown Completed [facility] Varicella (varivax)(chicken pox) Unknown Completed [facility] HPV9 Unknown Completed [facility] SARS-COV-2 COVID-19 PFIZER VACCINE Unknown Completed [facility] SARS-COV-2 COVID-19 PFIZER VACCINE Unknown Completed [facility] DTaP, Unspecified Formulation Unknown Completed [facility] DTaP, Unspecified Formulation Unknown Completed [facility] DTaP, Unspecified Formulation Unknown Completed [facility] DTaP, Unspecified Formulation Unknown Completed [facility] HEPATITIS A Unknown Completed [facility] Hep B, Adol or Pedi Dosage Unknown Completed [facility] Hep B, Adol or Pedi Dosage Unknown Completed [facility] Hep B, Adol or Pedi Dosage Unknown Completed [facility] Hep B, Adol or Pedi Dosage Unknown Completed [facility] Hep B, Adol or Pedi Dosage Unknown Completed [facility] HIB 4 Dose Schedule Unknown Completed [facility] HIB 4 Dose Schedule Unknown Completed [facility] HIB 4 Dose Schedule Unknown Completed [facility] MMR Unknown Completed [facility] MMR Unknown Completed [facility] Pneumococcal 7 Conjugate, PCV7 (Prevnar7) Unknown Completed [facility] Varicella (varivax)(chicken pox) Unknown Completed [facility] Varicella (varivax)(chicken pox) Unknown Completed [facility] IPV Unknown Completed [facility] IPV Unknown Completed [facility] IPV Unknown Completed [facility] IPV Unknown Completed [facility] TDAP Unknown Completed [facility] HPV9 Unknown Completed [facility] Varicella (varivax)(chicken pox) Unknown Completed [facility] HPV9 Unknown Completed [facility] SARS-COV-2 COVID-19 PFIZER VACCINE Unknown Completed [facility] SARS-COV-2 COVID-19 PFIZER VACCINE Unknown Completed [facility] DTaP, Unspecified Formulation Unknown Completed [facility] DTaP, Unspecified Formulation Unknown Completed [facility] DTaP, Unspecified Formulation Unknown Completed [facility] DTaP, Unspecified Formulation Unknown Completed [facility] HEPATITIS A Unknown Completed [facility] Hep B, Adol or Pedi Dosage Unknown Completed [facility] Hep B, Adol or Pedi Dosage Unknown Completed [facility] Hep B, Adol or Pedi Dosage Unknown Completed [facility] Hep B, Adol or Pedi Dosage Unknown Completed [facility] Hep B, Adol or Pedi Dosage Unknown Completed [facility] HIB 4 Dose Schedule Unknown Completed [facility] HIB 4 Dose Schedule Unknown Completed [facility] HIB 4 Dose Schedule Unknown Completed [facility] MMR Unknown Completed [facility] MMR Unknown Completed [facility] Pneumococcal 7 Conjugate, PCV7 (Prevnar7) Unknown Completed [facility] Varicella (varivax)(chicken pox) Unknown Completed [facility] Varicella (varivax)(chicken pox) Unknown Completed [facility] IPV Unknown Completed [facility] IPV Unknown Completed [facility] IPV Unknown Completed [facility] IPV Unknown Completed [facility] TDAP Unknown Completed [facility] HPV9 Unknown Completed [facility] Varicella (varivax)(chicken pox) Unknown Completed [facility] HPV9 Unknown Completed [facility] SARS-COV-2 COVID-19 PFIZER VACCINE Unknown Completed [facility] SARS-COV-2 COVID-19 PFIZER VACCINE Unknown Completed [facility] DTaP, Unspecified Formulation Unknown Completed [facility] DTaP, Unspecified Formulation Unknown Completed [facility] DTaP, Unspecified Formulation Unknown Completed [facility] DTaP, Unspecified Formulation Unknown Completed [facility] HEPATITIS A Unknown Completed [facility] Hep B, Adol or Pedi Dosage Unknown Completed [facility] Hep B, Adol or Pedi Dosage Unknown Completed [facility] Hep B, Adol or Pedi Dosage Unknown Completed [facility] Hep B, Adol or Pedi Dosage Unknown Completed [facility] Hep B, Adol or Pedi Dosage Unknown Completed [facility] HIB 4 Dose Schedule Unknown Completed [facility] HIB 4 Dose Schedule Unknown Completed [facility] HIB 4 Dose Schedule Unknown Completed [facility] MMR Unknown Completed [facility] MMR Unknown Completed [facility] Pneumococcal 7 Conjugate, PCV7 (Prevnar7) Unknown Completed [facility] Varicella (varivax)(chicken pox) Unknown Completed [facility] Varicella (varivax)(chicken pox) Unknown Completed [facility] IPV Unknown Completed [facility] IPV Unknown Completed [facility] IPV Unknown Completed [facility] IPV Unknown Completed [facility] TDAP Unknown Completed [facility] HPV9 Unknown Completed [facility] Varicella (varivax)(chicken pox) Unknown Completed [facility] HPV9 Unknown Completed [facility] SARS-COV-2 COVID-19 PFIZER VACCINE Unknown Completed [facility] SARS-COV-2 COVID-19 PFIZER VACCINE Unknown Completed [facility] DTaP, Unspecified Formulation Unknown Completed [facility] DTaP, Unspecified Formulation Unknown Completed [facility] DTaP, Unspecified Formulation Unknown Completed [facility] DTaP, Unspecified Formulation Unknown Completed [facility] HEPATITIS A Unknown Completed [facility] Hep B, Adol or Pedi Dosage Unknown Completed [facility] Hep B, Adol or Pedi Dosage Unknown Completed [facility] Hep B, Adol or Pedi Dosage Unknown Completed [facility] Hep B, Adol or Pedi Dosage Unknown Completed [facility] Hep B, Adol or Pedi Dosage Unknown Completed [facility] HIB 4 Dose Schedule Unknown Completed [facility] HIB 4 Dose Schedule Unknown Completed [facility] HIB 4 Dose Schedule Unknown Completed [facility] MMR Unknown Completed [facility] MMR Unknown Completed [facility] Pneumococcal 7 Conjugate, PCV7 (Prevnar7) Unknown Completed [facility] Varicella (varivax)(chicken pox) Unknown Completed [facility] Varicella (varivax)(chicken pox) Unknown Completed [facility] IPV Unknown Completed [facility] IPV Unknown Completed [facility] IPV Unknown Completed [facility] IPV Unknown Completed [facility] TDAP Unknown Completed [facility] TDAP Unknown Completed [facility] HPV9 Unknown Completed [facility] Varicella (varivax)(chicken pox) Unknown Completed [facility] HPV9 Unknown Completed [facility] SARS-COV-2 COVID-19 PFIZER VACCINE Unknown Completed [facility] SARS-COV-2 COVID-19 PFIZER VACCINE Unknown Completed [facility] DTaP, Unspecified Formulation Unknown Completed [facility] DTaP, Unspecified Formulation Unknown Completed [facility] DTaP, Unspecified Formulation Unknown Completed [facility] DTaP, Unspecified Formulation Unknown Completed [facility] HEPATITIS A Unknown Completed [facility] Hep B, Adol or Pedi Dosage Unknown Completed [facility] Hep B, Adol or Pedi Dosage Unknown Completed [facility] Hep B, Adol or Pedi Dosage Unknown Completed [facility] Hep B, Adol or Pedi Dosage Unknown Completed [facility] Hep B, Adol or Pedi Dosage Unknown Completed [facility] HIB 4 Dose Schedule Unknown Completed [facility] HIB 4 Dose Schedule Unknown Completed [facility] HIB 4 Dose Schedule Unknown Completed [facility] MMR Unknown Completed [facility] MMR Unknown Completed [facility] Pneumococcal 7 Conjugate, PCV7 (Prevnar7) Unknown Completed [facility] Varicella (varivax)(chicken pox) Unknown Completed [facility] Varicella (varivax)(chicken pox) Unknown Completed [facility] IPV Unknown Completed [facility] IPV Unknown Completed [facility] IPV Unknown Completed [facility] IPV Unknown Completed [facility] TDAP Unknown Completed [facility] TDAP Unknown Completed [facility] HPV9 Unknown Completed [facility] Varicella (varivax)(chicken pox) Unknown Completed [facility] HPV9 Unknown Completed [facility] SARS-COV-2 COVID-19 PFIZER VACCINE Unknown Completed [facility] SARS-COV-2 COVID-19 PFIZER VACCINE Unknown Completed [facility] DTaP, Unspecified Formulation Unknown Completed [facility] DTaP, Unspecified Formulation Unknown Completed [facility] DTaP, Unspecified Formulation Unknown Completed [facility] DTaP, Unspecified Formulation Unknown Completed [facility] HEPATITIS A Unknown Completed [facility] Hep B, Adol or Pedi Dosage Unknown Completed [facility] Hep B, Adol or Pedi Dosage Unknown Completed [facility] Hep B, Adol or Pedi Dosage Unknown Completed [facility] Hep B, Adol or Pedi Dosage Unknown Completed [facility] Hep B, Adol or Pedi Dosage Unknown Completed [facility] HIB 4 Dose Schedule Unknown Completed [facility] HIB 4 Dose Schedule Unknown Completed [facility] HIB 4 Dose Schedule Unknown Completed [facility] MMR Unknown Completed [facility] MMR Unknown Completed [facility] Pneumococcal 7 Conjugate, PCV7 (Prevnar7) Unknown Completed [facility] Varicella (varivax)(chicken pox) Unknown Completed [facility] Varicella (varivax)(chicken pox) Unknown Completed [facility] IPV Unknown Completed [facility] IPV Unknown Completed [facility] IPV Unknown Completed [facility] IPV Unknown Completed [facility] TDAP Unknown Completed [facility] TDAP Unknown Completed [facility] HPV9 Unknown Completed [facility] Varicella (varivax)(chicken pox) Unknown Completed [facility] HPV9 Unknown Completed [facility] SARS-COV-2 COVID-19 PFIZER VACCINE Unknown Completed [facility] SARS-COV-2 COVID-19 PFIZER VACCINE Unknown Completed [facility] DTaP, Unspecified Formulation Unknown Completed [facility] DTaP, Unspecified Formulation Unknown Completed [facility] DTaP, Unspecified Formulation Unknown Completed [facility] DTaP, Unspecified Formulation Unknown Completed [facility] HEPATITIS A Unknown Completed [facility] Hep B, Adol or Pedi Dosage Unknown Completed [facility] Hep B, Adol or Pedi Dosage Unknown Completed [facility] Hep B, Adol or Pedi Dosage Unknown Completed [facility] Hep B, Adol or Pedi Dosage Unknown Completed [facility] Hep B, Adol or Pedi Dosage Unknown Completed [facility] HIB 4 Dose Schedule Unknown Completed [facility] HIB 4 Dose Schedule Unknown Completed [facility] HIB 4 Dose Schedule Unknown Completed [facility] MMR Unknown Completed [facility] MMR Unknown Completed [facility] Pneumococcal 7 Conjugate, PCV7 (Prevnar7) Unknown Completed [facility] Varicella (varivax)(chicken pox) Unknown Completed [facility] Varicella (varivax)(chicken pox) Unknown Completed [facility] IPV Unknown Completed [facility] IPV Unknown Completed [facility] IPV Unknown Completed [facility] IPV Unknown Completed [facility] TDAP Unknown Completed [facility] TDAP Unknown Completed [facility] HPV9 Unknown Completed [facility] Varicella (varivax)(chicken pox) Unknown Completed [facility] HPV9 Unknown Completed [facility] SARS-COV-2 COVID-19 PFIZER VACCINE Unknown Completed [facility] SARS-COV-2 COVID-19 PFIZER VACCINE Unknown Completed [facility] DTaP, Unspecified Formulation Unknown Completed [facility] DTaP, Unspecified Formulation Unknown Completed [facility] DTaP, Unspecified Formulation Unknown Completed [facility] DTaP, Unspecified Formulation Unknown Completed [facility] Completed [facility] Hep B, Adol or Pedi Dosage Unknown Completed [facility] Hep B, Adol or Pedi Dosage Unknown Completed [facility] Hep B, Adol or Pedi Dosage Unknown Completed [facility] Hep B, Adol or Pedi Dosage Unknown Completed [facility] HIB 4 Dose Schedule Unknown Completed [facility] HIB 4 Dose Schedule Unknown Completed [facility] HIB 4 Dose Schedule Unknown Completed [facility] MMR Unknown Completed [facility] MMR Unknown Completed [facility] Pneumococcal 7 Conjugate, PCV7 (Prevnar7) Unknown Completed [facility] Varicella (varivax)(chicken pox) Unknown Completed [facility] Varicella (varivax)(chicken pox) Unknown Completed [facility] IPV Unknown Completed [facility] IPV Unknown Completed [facility] IPV Unknown Completed [facility] IPV Unknown Completed [facility] TDAP Unknown Completed [facility] TDAP Unknown Completed [facility] HPV9 Unknown Completed [facility] Varicella (varivax)(chicken pox) Unknown Completed [facility] HPV9 Unknown Completed [facility] SARS-COV-2 COVID-19 PFIZER VACCINE Unknown Completed [facility] SARS-COV-2 COVID-19 PFIZER VACCINE Unknown Completed [facility] DTaP, Unspecified Formulation Unknown Completed [facility] DTaP, Unspecified Formulation Unknown Completed [facility] DTaP, Unspecified Formulation Unknown Completed [facility] DTaP, Unspecified Formulation Unknown Completed [facility] HEPATITIS A Unknown Completed [facility] Hep B, Adol or Pedi Dosage Unknown Completed [facility] Hep B, Adol or Pedi Dosage Unknown Completed [facility] Hep B, Adol or Pedi Dosage Unknown Completed [facility] Hep B, Adol or Pedi Dosage Unknown Completed [facility] Hep B, Adol or Pedi Dosage Unknown Completed [facility] HIB 4 Dose Schedule Unknown Completed [facility] HIB 4 Dose Schedule Unknown Completed [facility] HIB 4 Dose Schedule Unknown Completed [facility] MMR Unknown Completed [facility] MMR Unknown Completed [facility] Pneumococcal 7 Conjugate, PCV7 (Prevnar7) Unknown Completed [facility] Varicella (varivax)(chicken pox) Unknown Completed [facility] Varicella (varivax)(chicken pox) Unknown Completed [facility] IPV Unknown Completed [facility] IPV Unknown Completed [facility] IPV Unknown Completed [facility] IPV Unknown Completed [facility] TDAP Unknown Completed [facility] TDAP Unknown Completed [facility] HPV9 Unknown Completed [facility] Varicella (varivax)(chicken pox) Unknown Completed [facility] HPV9 Unknown Completed [facility] SARS-COV-2 COVID-19 PFIZER VACCINE Unknown Completed [facility] SARS-COV-2 COVID-19 PFIZER VACCINE Unknown Completed [facility] DTaP, Unspecified Formulation Unknown Completed [facility] DTaP, Unspecified Formulation Unknown Completed [facility] DTaP, Unspecified Formulation Unknown Completed [facility] DTaP, Unspecified Formulation Unknown Completed [facility] HEPATITIS A Unknown Completed [facility] Hep B, Adol or Pedi Dosage Unknown Completed [facility] Hep B, Adol or Pedi Dosage Unknown Completed [facility] Hep B, Adol or Pedi Dosage Unknown Completed [facility] Hep B, Adol or Pedi Dosage Unknown Completed [facility] Hep B, Adol or Pedi Dosage Unknown Completed [facility] HIB 4 Dose Schedule Unknown Completed [facility] HIB 4 Dose Schedule Unknown Completed [facility] HIB 4 Dose Schedule Unknown Completed [facility] MMR Unknown Completed [facility] MMR Unknown Completed [facility] Pneumococcal 7 Conjugate, PCV7 (Prevnar7) Unknown Completed [facility] Varicella (varivax)(chicken pox) Unknown Completed [facility] Varicella (varivax)(chicken pox) Unknown Completed [facility] IPV Unknown Completed [facility] IPV Unknown Completed [facility] IPV Unknown Completed [facility] IPV Unknown Completed [facility] TDAP Unknown Completed [facility] TDAP Unknown Completed [facility] HPV9 Unknown Completed [facility] Varicella (varivax)(chicken pox) Unknown Completed [facility] HPV9 Unknown Completed [facility] SARS-COV-2 COVID-19 PFIZER VACCINE Unknown Completed [facility] SARS-COV-2 COVID-19 PFIZER VACCINE Unknown Completed [facility] DTaP, Unspecified Formulation Unknown Completed [facility] DTaP, Unspecified Formulation Unknown Completed [facility] DTaP, Unspecified Formulation Unknown Completed [facility] DTaP, Unspecified Formulation Unknown Completed [facility] HEPATITIS A Unknown Completed [facility] Hep B, Adol or Pedi Dosage Unknown Completed [facility] Hep B, Adol or Pedi Dosage Unknown Completed [facility] Hep B, Adol or Pedi Dosage Unknown Completed [facility] Hep B, Adol or Pedi Dosage Unknown Completed [facility] Hep B, Adol or Pedi Dosage Unknown Completed [facility] HIB 4 Dose Schedule Unknown Completed [facility] HIB 4 Dose Schedule Unknown Completed [facility] HIB 4 Dose Schedule Unknown Completed [facility] MMR Unknown Completed [facility] MMR Unknown Completed [facility] Pneumococcal 7 Conjugate, PCV7 (Prevnar7) Unknown Completed [facility] Varicella (varivax)(chicken pox) Unknown Completed [facility] Varicella (varivax)(chicken pox) Unknown Completed [facility] IPV Unknown Completed [facility] IPV Unknown Completed [facility] IPV Unknown Completed [facility] IPV Unknown Completed [facility] TDAP Unknown Completed [facility] TDAP Unknown Completed [facility] HPV9 Unknown Completed [facility] Varicella (varivax)(chicken pox) Unknown Completed [facility] HPV9 Unknown Completed [facility] SARS-COV-2 COVID-19 PFIZER VACCINE Unknown Completed [facility] SARS-COV-2 COVID-19 PFIZER VACCINE Unknown Completed [facility] DTaP, Unspecified Formulation Unknown Completed [facility] DTaP, Unspecified Formulation Unknown Completed [facility] [facility] D[facility] Unspecified Formulation Unknown Completed [facility] DTaP, Unspecified Formulation Unknown Completed [facility] HEPATITIS A Unknown Completed [facility] Hep B, Adol or Pedi Dosage Unknown Completed [facility] Hep B, Adol or Pedi Dosage Unknown Completed [facility] Hep B, Adol or Pedi Dosage Unknown Completed [facility] Hep B, Adol or Pedi Dosage Unknown Completed [facility] Hep B, Adol or Pedi Dosage Unknown Completed [facility] HIB 4 Dose Schedule Unknown Completed [facility] HIB 4 Dose Schedule Unknown Completed [facility] HIB 4 Dose Schedule Unknown Completed [facility] MMR Unknown Completed [facility] MMR Unknown Completed [facility] Pneumococcal 7 Conjugate, PCV7 (Prevnar7) Unknown Completed [facility] Varicella (varivax)(chicken pox) Unknown Completed [facility] Varicella (varivax)(chicken pox) Unknown Completed [facility] IPV Unknown Completed [facility] IPV Unknown Completed [facility] IPV Unknown Completed [facility] IPV Unknown Completed [facility] TDAP Unknown Completed [facility] TDAP Unknown Completed [facility] HPV9 Unknown Completed [facility] Varicella (varivax)(chicken pox) Unknown Completed [facility] HPV9 Unknown Completed [facility] SARS-COV-2 COVID-19 PFIZER VACCINE Unknown Completed [facility] SARS-COV-2 COVID-19 PFIZER VACCINE Unknown Completed [facility] DTaP, Unspecified Formulation Unknown Completed [facility] DTaP, Unspecified Formulation Unknown Completed [facility] DTaP, Unspecified Formulation Unknown Completed [facility] DTaP, Unspecified Formulation Unknown Completed [facility] HEPATITIS A Unknown Completed [facility] Hep B, Adol or Pedi Dosage Unknown Completed [facility] Hep B, Adol or Pedi Dosage Unknown Completed [facility] Hep B, Adol or Pedi Dosage Unknown Completed [facility] Hep B, Adol or Pedi Dosage Unknown Completed [facility] Hep B, Adol or Pedi Dosage Unknown Completed [facility] HIB 4 Dose Schedule Unknown Completed [facility] HIB 4 Dose Schedule Unknown Completed [facility] HIB 4 Dose Schedule Unknown Completed [facility] MMR Unknown Completed [facility] MMR Unknown Completed [facility] Pneumococcal 7 Conjugate, PCV7 (Prevnar7) Unknown Completed [facility] Varicella (varivax)(chicken pox) Unknown Completed [facility] Varicella (varivax)(chicken pox) Unknown Completed [facility] IPV Unknown Completed [facility] IPV Unknown Completed [facility] IPV Unknown Completed [facility] IPV Unknown Completed [facility] TDAP Unknown Completed [facility] Vital Signs Vital Name Observation Time Observation Value Comments S chucho Systolic blood pressure 2023-03-30 07:07:00 125 mm[Hg] [facility] Diastolic blood pressure 2023-03-30 07:07:00 82 mm[Hg] [facility] Heart rate 2023-03-30 07:07:00 94 /min [facility] Oxygen saturation in Arterial blood by Pulse oximetry 2023-03-30 07:07:00 99 /min [facility] Body temperature 2023-03-30 06:27:00 36.39 [place] [facility] Respiratory rate 2023-03-30 06:27:00 20 /min [facility] Body weight 2023-03-30 06:27:00 67.631 kg [facility] BMI 2023-03-30 06:27:00 30.11 kg/m2 [facility] Systolic blood pressure 2023-03-25 20:56:00 108 mm[Hg] [facility] Diastolic blood pressure 2023-03-25 20:56:00 68 mm[Hg] [facility] Heart rate 2023-03-25 20:56:00 86 /min [facility] Body temperature 2023-03-25 20:56:00 36.44 [place] [facility] Respiratory rate 2023-03-25 20:56:00 19 /min [facility] Body height 2023-03-25 20:56:00 149.9 cm [facility] Body weight 2023-03-25 20:56:00 65.998 kg [facility] BMI 2023-03-25 20:56:00 29.39 kg/m2 [facility] Systolic blood pressure 2023-03-10 18:56:00 110 mm[Hg] [facility] Diastolic blood pressure 2023-03-10 18:56:00 71 mm[Hg] [facility] Heart rate 2023-03-10 18:56:00 93 /min [facility] Body temperature 2023-03-10 18:56:00 36.56 [place] [facility] Respiratory rate 2023-03-10 18:56:00 18 /min [facility] Body height 2023-03-10 18:56:00 149.9 cm [facility] Body weight 2023-03-10 18:56:00 62.228 kg [facility] BMI 2023-03-10 18:56:00 27.71 kg/m2 [facility] Systolic blood pressure 2023-03-05 23:30:00 110 mm[Hg] [facility] Diastolic blood pressure 2023-03-05 23:30:00 64 mm[Hg] [facility] Heart rate 2023-03-05 23:30:00 102 /min [facility] Body temperature 2023-03-05 23:30:00 36.67 [place] [facility] Respiratory rate 2023-03-05 23:30:00 18 /min [facility] Body height 2023-03-05 23:30:00 149.9 cm [facility] Body weight 2023-03-05 23:30:00 62.143 kg [facility] BMI 2023-03-05 23:30:00 27.67 kg/m2 [facility] Oxygen saturation in Arterial blood by Pulse oximetry 2023-03-05 23:30:00 99 /min [facility] Systolic blood pressure 2022-11-25 14:25:00 111 mm[Hg] [facility] Diastolic blood pressure 2022-11-25 14:25:00 74 mm[Hg] [facility] Heart rate 2022-11-25 14:25:00 79 /min [facility] Body temperature 2022-11-25 14:25:00 36.5 [place] [facility] Respiratory rate 2022-11-25 14:25:00 18 /min [facility] Body height 2022-11-25 14:25:00 157.5 cm [facility] 2022-11-25 14:25:00 52.702 kg [facility] BMI 2022-11-25 14:25:00 21.25 kg/m2 [facility] Systolic blood pressure 2022-11-19 15:23:00 117 mm[Hg] [facility] Diastolic blood pressure 2022-11-19 15:23:00 68 mm[Hg] [facility] Heart rate 2022-11-19 15:23:00 68 /min [facility] Body temperature 2022-11-19 15:23:00 36.67 [place] [facility] Body height 2022-11-19 15:23:00 157.5 cm [facility] Body weight 2022-11-19 15:23:00 52.436 kg [facility] BMI 2022-11-19 15:23:00 21.14 kg/m2 [facility] Oxygen saturation in Arterial blood by Pulse oximetry 2022-11-19 15:23:00 99 /min [facility] Systolic blood pressure 2022-10-28 15:52:00 112 mm[Hg] [facility] Diastolic blood pressure 2022-10-28 15:52:00 77 mm[Hg] [facility] Heart rate 2022-10-28 15:52:00 108 /min [facility] Body temperature 2022-10-28 15:52:00 36.33 [place] [facility] Respiratory rate 2022-10-28 15:52:00 18 /min [facility] Body height 2022-10-28 15:52:00 157.5 cm [facility] Body weight 2022-10-28 15:52:00 51.12 kg [facility] BMI 2022-10-28 15:52:00 20.61 kg/m2 [facility] Systolic blood pressure 2022-10-01 16:03:00 110 mm[Hg] [facility] Diastolic blood pressure 2022-10-01 16:03:00 57 mm[Hg] [facility] Heart rate 2022-10-01 16:03:00 66 /min [facility] Body temperature 2022-10-01 16:03:00 36.67 [place] [facility] Respiratory rate 2022-10-01 16:03:00 16 /min [facility] Body height 2022-10-01 16:03:00 157.5 cm [facility] Body weight 2022-10-01 16:03:00 52.708 kg [facility] BMI 2022-10-01 16:03:00 21.25 kg/m2 [facility] Systolic blood pressure 2022-09-11 15:24:00 109 mm[Hg] [facility] Diastolic blood pressure 2022-09-11 15:24:00 64 mm[Hg] [facility] Heart rate 2022-09-11 15:24:00 72 /min [facility] Body temperature 2022-09-11 15:24:00 36.61 [place] [facility] Respiratory rate 2022-09-11 15:24:00 19 /min [facility] Body height 2022-09-11 15:24:00 157.5 cm [facility] Body weight 2022-09-11 15:24:00 54.114 kg [facility] BMI 2022-09-11 15:24:00 21.82 kg/m2 [facility] Oxygen saturation in Arterial blood by Pulse oximetry 2022-09-11 15:24:00 99 /min [facility] Systolic blood pressure 2022-09-03 13:04:00 116 mm[Hg] [facility] Diastolic blood pressure 2022-09-03 13:04:00 79 mm[Hg] [facility] Heart rate 2022-09-03 13:04:00 115 /min [facility] Body temperature 2022-09-03 13:04:00 37 [place] [facility] Respiratory rate 2022-09-03 13:04:00 18 /min [facility] Body height 2022-09-03 13:04:00 157.5 cm [facility] Body weight 2022-09-03 13:04:00 53.071 kg [facility] BMI 2022-09-03 13:04:00 21.40 kg/m2 [facility] Systolic blood pressure 2022-07-11 21:46:00 132 mm[Hg] [facility] Diastolic blood pressure 2022-07-11 21:46:00 97 mm[Hg] [facility] Heart rate 2022-07-11 21:46:00 89 /min [facility] Body temperature 2022-07-11 21:46:00 37 [place] [facility] Respiratory rate 2022-07-11 21:46:00 22 /min [facility] Body height 2022-07-11 21:46:00 157.5 cm [facility] Body weight 2022-07-11 21:46:00 53.071 kg [facility] BMI 2022-07-11 21:46:00 21.40 kg/m2 [facility] Oxygen saturation in Arterial blood by Pulse oximetry 2022-07-11 21:46:00 100 /min [facility] Systolic blood pressure 2022-06-12 14:58:00 97 mm[Hg] [facility] Diastolic blood pressure 2022-06-12 14:58:00 61 mm[Hg] [facility] Heart rate 2022-06-12 14:58:00 86 /min [facility] Body temperature 2022-06-12 14:58:00 36.67 [place] [facility] Respiratory rate 2022-06-12 14:58:00 18 /min [facility] Body height 2022-06-12 14:58:00 157.5 cm [facility] Body weight 2022-06-12 14:58:00 55.52 kg [facility] BMI 2022-06-12 14:58:00 22.39 kg/m2 [facility] Oxygen saturation in Arterial blood by Pulse oximetry 2022-06-12 14:58:00 98 /min [facility] Systolic blood pressure 2022-06-06 15:56:00 121 mm[Hg] [facility] Diastolic blood pressure 2022-06-06 15:56:00 78 mm[Hg] [facility] Heart rate 2022-06-06 15:56:00 85 /min [facility] Body temperature 2022-06-06 15:56:00 36.11 [place] [facility] Respiratory rate 2022-06-06 15:56:00 18 /min [facility] Body height 2022-06-06 15:56:00 157.5 cm [facility] Body weight 2022-06-06 15:56:00 54.704 kg [facility] BMI 2022-06-06 15:56:00 22.06 kg/m2 [facility] Systolic blood pressure 2022-05-23 15:33:00 126 mm[Hg] [facility] Diastolic blood pressure 2022-05-23 15:33:00 89 mm[Hg] [facility] Heart rate 2022-05-23 15:33:00 92 /min [facility] Body temperature 2022-05-23 15:33:00 36.17 [place] [facility] Respiratory rate 2022-05-23 15:33:00 18 /min [facility] Body height 2022-05-23 15:33:00 157.5 cm [facility] Body weight 2022-05-23 15:33:00 57.153 kg [facility] BMI 2022-05-23 15:33:00 23.05 kg/m2 [facility] Oxygen saturation in Arterial blood by Pulse oximetry 2022-05-23 15:33:00 98 /min r/a [facility] Systolic blood pressure 2022-05-16 15:18:00 132 mm[Hg] [facility] Diastolic blood pressure 2022-05-16 15:18:00 78 mm[Hg] [facility] Heart rate 2022-05-16 15:18:00 83 /min [facility] Body temperature 2022-05-16 15:18:00 35.94 [place] [facility] Respiratory rate 2022-05-16 15:18:00 18 /min [facility] Body height 2022-05-16 15:18:00 157.5 cm [facility] Body weight 2022-05-16 15:18:00 58.015 kg [facility] BMI 2022-05-16 15:18:00 23.39 kg/m2 [facility] Systolic blood pressure 2022-05-12 15:38:00 124 mm[Hg] [facility] Diastolic blood pressure 2022-05-12 15:38:00 86 mm[Hg] [facility] Heart rate 2022-05-12 15:38:00 72 /min [facility] Respiratory rate 2022-05-12 15:38:00 18 /min [facility] Body height 2022-05-12 15:38:00 157.5 cm [facility] Body weight 2022-05-12 15:38:00 58.06 kg [facility] BMI 2022-05-12 15:38:00 23.41 kg/m2 [facility] Oxygen saturation in Arterial blood by Pulse oximetry 2022-05-12 15:38:00 97 /min [facility] Systolic blood pressure 2022-05-06 14:11:00 136 mm[Hg] [facility] Diastolic blood pressure 2022-05-06 14:11:00 84 mm[Hg] [facility] Heart rate 2022-05-06 14:11:00 88 /min [facility] Body temperature 2022-05-06 14:11:00 36.78 [place] [facility] Respiratory rate 2022-05-06 14:11:00 18 /min [facility] Body height 2022-05-06 14:11:00 157.5 cm [facility] Body weight 2022-05-06 14:11:00 58.151 kg [facility] BMI 2022-05-06 14:11:00 23.45 kg/m2 [facility] Systolic blood pressure 2022-05-02 15:48:00 130 mm[Hg] manual [facility] Diastolic blood pressure 2022-05-02 15:48:00 92 mm[Hg] manual [facility] Heart rate 2022-05-02 15:40:00 86 /min [facility] Body temperature 2022-05-02 15:40:00 36.72 [place] [facility] Respiratory rate 2022-05-02 15:40:00 20 /min [facility] Body height 2022-05-02 15:40:00 157.5 cm [facility] Body weight 2022-05-02 15:40:00 59.33 kg [facility] BMI 2022-05-02 15:40:00 23.92 kg/m2 [facility] Systolic blood pressure 2022-04-27 02:33:00 136 mm[Hg] [facility] Diastolic blood pressure 2022-04-27 02:33:00 86 mm[Hg] [facility] Heart rate 2022-04-27 02:33:00 90 /min [facility] Body temperature 2022-04-27 02:33:00 35.83 [place] [facility] Respiratory rate 2022-04-27 02:33:00 18 /min [facility] Oxygen saturation in Arterial blood by Pulse oximetry 2022-04-27 02:33:00 95 /min [facility] Body weight 2022-04-24 00:00:00 67.132 kg [facility] BMI 2022-04-24 00:00:00 27.07 kg/m2 [facility] Heart rate 2022-04-25 08:30:00 120 /min [facility] Oxygen saturation in Arterial blood by Pulse oximetry 2022-04-25 08:30:00 100 /min [facility] Systolic blood pressure 2022-04-25 08:20:00 128 mm[Hg] [facility] Diastolic blood pressure 2022-04-25 08:20:00 81 mm[Hg] [facility] Body temperature 2022-04-25 08:00:00 37.28 [place] [facility] Respiratory rate 2022-04-25 08:00:00 16 /min [facility] Body weight 2022-04-24 00:00:00 67.132 kg [facility] BMI 2022-04-24 00:00:00 27.07 kg/m2 [facility] Systolic blood pressure 2022-04-23 14:03:00 134 mm[Hg] [facility] Diastolic blood pressure 2022-04-23 14:03:00 86 mm[Hg] [facility] Heart rate 2022-04-23 14:00:00 72 /min [facility] Body temperature 2022-04-23 14:00:00 36.72 [place] [facility] Respiratory rate 2022-04-23 14:00:00 20 /min [facility] Body height 2022-04-23 14:00:00 157.5 cm [facility] Body weight 2022-04-23 14:00:00 66.134 kg [facility] BMI 2022-04-23 14:00:00 26.67 kg/m2 [facility] Systolic blood pressure 2022-04-16 19:05:00 136 mm[Hg] [facility] Diastolic blood pressure 2022-04-16 19:05:00 89 mm[Hg] [facility] Heart rate 2022-04-16 19:05:00 75 /min [facility] Body temperature 2022-04-16 19:05:00 36.56 [place] [facility] Respiratory rate 2022-04-16 19:05:00 17 /min [facility] Body height 2022-04-16 19:05:00 154.9 cm [facility] Body weight 2022-04-16 19:05:00 65.953 kg [facility] BMI 2022-04-16 19:05:00 27.47 kg/m2 [facility] Systolic blood pressure 2022-04-08 14:53:00 132 mm[Hg] [facility] Diastolic blood pressure 2022-04-08 14:53:00 82 mm[Hg] [facility] Heart rate 2022-04-08 14:53:00 82 /min [facility] Body temperature 2022-04-08 14:53:00 36.11 [place] [facility] Respiratory rate 2022-04-08 14:53:00 18 /min [facility] Body height 2022-04-08 14:53:00 154.9 cm [facility] Body weight 2022-04-08 14:53:00 65.454 kg [facility] BMI 2022-04-08 14:53:00 27.27 kg/m2 [facility] Systolic blood pressure 2022-03-25 15:22:00 120 mm[Hg] [facility] Diastolic blood pressure 2022-03-25 15:22:00 80 mm[Hg] [facility] Heart rate 2022-03-25 15:22:00 79 /min [facility] Body temperature 2022-03-25 15:22:00 36.56 [place] [facility] Respiratory rate 2022-03-25 15:22:00 18 /min [facility] Body height 2022-03-25 15:22:00 157.5 cm [facility] Body weight 2022-03-25 15:22:00 63.413 kg [facility] BMI 2022-03-25 15:22:00 25.57 kg/m2 [facility] Systolic blood pressure 2022-03-13 19:20:00 129 mm[Hg] [facility] Diastolic blood pressure 2022-03-13 19:20:00 82 mm[Hg] [facility] Heart rate 2022-03-13 19:20:00 80 /min [facility] Body temperature 2022-03-13 19:20:00 36.72 [place] [facility] Respiratory rate 2022-03-13 19:20:00 18 /min [facility] Body height 2022-03-13 19:20:00 157.5 cm [facility] Body weight 2022-03-13 19:20:00 63.617 kg [facility] BMI 2022-03-13 19:20:00 25.65 kg/m2 [facility] Systolic blood pressure 2022-02-27 14:27:00 118 mm[Hg] [facility] Diastolic blood pressure 2022-02-27 14:27:00 64 mm[Hg] [facility] Heart rate 2022-02-27 14:27:00 67 /min [facility] Body temperature 2022-02-27 14:27:00 36.56 [place] [facility] Respiratory rate 2022-02-27 14:27:00 18 /min [facility] Body height 2022-02-27 14:27:00 157.5 cm [facility] Body weight 2022-02-27 14:27:00 62.738 kg [facility] BMI 2022-02-27 14:27:00 25.30 kg/m2 [facility] Systolic blood pressure 2022-02-14 20:24:00 113 mm[Hg] [facility] Diastolic blood pressure 2022-02-14 20:24:00 71 mm[Hg] [facility] Heart rate 2022-02-14 20:24:00 70 /min [facility] Body temperature 2022-02-14 20:24:00 36.67 [place] [facility] Respiratory rate 2022-02-14 20:24:00 18 /min [facility] Body height 2022-02-14 20:24:00 157.5 cm [facility] Body weight 2022-02-14 20:24:00 63.231 kg [facility] BMI 2022-02-14 20:24:00 25.50 kg/m2 [facility] Systolic blood pressure 2022-02-06 01:21:00 112 mm[Hg] [facility] Diastolic blood pressure 2022-02-06 01:21:00 66 mm[Hg] [facility] Heart rate 2022-02-06 01:21:00 70 /min [facility] Body temperature 2022-02-06 01:21:00 36.89 [place] [facility] Respiratory rate 2022-02-06 01:21:00 18 /min [facility] Oxygen saturation in Arterial blood by Pulse oximetry 2022-02-06 01:21:00 100 /min [facility] Body height 2022-02-05 21:58:00 157.5 cm [facility] Body weight 2022-02-05 21:58:00 62.234 kg [facility] BMI 2022-02-05 21:58:00 25.09 kg/m2 [facility] Heart rate 2022-02-02 23:26:00 75 /min [facility] Body temperature 2022-02-02 23:26:00 36.61 [place] [facility] Respiratory rate 2022-02-02 23:26:00 18 /min [facility] Oxygen saturation in Arterial blood by Pulse oximetry 2022-02-02 23:15:00 97 /min [facility] Systolic blood pressure 2022-02-02 22:45:00 122 mm[Hg] [facility] Diastolic blood pressure 2022-02-02 22:45:00 80 mm[Hg] [facility] Body height 2022-02-02 22:30:00 157.5 cm [facility] Body weight 2022-02-02 22:30:00 62.143 kg [facility] BMI 2022-02-02 22:30:00 25.06 kg/m2 [facility] Systolic blood pressure 2022-01-31 15:44:00 117 mm[Hg] [facility] Diastolic blood pressure 2022-01-31 15:44:00 68 mm[Hg] [facility] Heart rate 2022-01-31 15:44:00 73 /min [facility] Body temperature 2022-01-31 15:44:00 36.89 [place] [facility] Respiratory rate 2022-01-31 15:44:00 18 /min [facility] Body height 2022-01-31 15:44:00 154.9 cm [facility] Body weight 2022-01-31 15:44:00 61.434 kg [facility] BMI 2022-01-31 15:44:00 25.59 kg/m2 [facility] Systolic blood pressure 2022-01-02 17:12:00 100 mm[Hg] [facility] Diastolic blood pressure 2022-01-02 17:12:00 66 mm[Hg] [facility] Heart rate 2022-01-02 17:12:00 84 /min [facility] Body temperature 2022-01-02 17:12:00 36.72 [place] [facility] Respiratory rate 2022-01-02 17:12:00 20 /min [facility] Body height 2022-01-02 17:12:00 154.9 cm [facility] Body weight 2022-01-02 17:12:00 59.194 kg [facility] BMI 2022-01-02 17:12:00 24.66 kg/m2 [facility] Systolic blood pressure 2021-12-11 01:13:00 111 mm[Hg] [facility] Diastolic blood pressure 2021-12-11 01:13:00 67 mm[Hg] [facility] Heart rate 2021-12-11 01:13:00 88 /min [facility] Body temperature 2021-12-11 01:13:00 36.61 Marycruz [facility] Respiratory rate 2021-12-11 01:13:00 18 /min [facility] Body height 2021-12-11 01:13:00 154.9 cm [facility] Body weight 2021-12-11 01:13:00 58.514 kg [facility] BMI 2021-12-11 01:13:00 24.37 kg/m2 [facility] Oxygen saturation in Arterial blood by Pulse oximetry 2021-12-11 01:13:00 100 /min [facility] Systolic blood pressure 2021-12-02 16:16:00 100 mm[Hg] [facility] Diastolic blood pressure 2021-12-02 16:16:00 66 mm[Hg] [facility] Heart rate 2021-12-02 16:16:00 67 /min [facility] Body temperature 2021-12-02 16:16:00 36.78 Marycruz [facility] Respiratory rate 2021-12-02 16:16:00 18 /min [facility] Body height 2021-12-02 16:16:00 157.5 cm [facility] Body weight 2021-12-02 16:16:00 56.87 kg [facility] BMI 2021-12-02 16:16:00 22.93 kg/m2 [facility] Systolic blood pressure 2021-11-04 18:16:00 119 mm[Hg] [facility] Diastolic blood pressure 2021-11-04 18:16:00 67 mm[Hg] [facility] Heart rate 2021-11-04 18:16:00 82 /min [facility] Body temperature 2021-11-04 18:16:00 36.89 Marycruz [facility] Respiratory rate 2021-11-04 18:16:00 18 /min [facility] Body height 2021-11-04 18:16:00 157.5 cm [facility] Body weight 2021-11-04 18:16:00 56.246 kg [facility] BMI 2021-11-04 18:16:00 22.68 kg/m2 [facility] Systolic blood pressure 2021-10-24 20:30:00 105 mm[Hg] [facility] Diastolic blood pressure 2021-10-24 20:30:00 69 mm[Hg] [facility] Heart rate 2021-10-24 20:30:00 81 /min [facility] Body temperature 2021-10-24 20:30:00 37.22 Marycruz [facility] Respiratory rate 2021-10-24 20:30:00 18 /min [facility] Body height 2021-10-24 20:30:00 157.5 cm [facility] Body weight 2021-10-24 20:30:00 55.747 kg [facility] BMI 2021-10-24 20:30:00 22.48 kg/m2 [facility] Procedures Procedure Date / Time Performed Performing Clinician Source NOTICE OF PRIVACY PRACTICES 2023-03-30 06:21:42 Doctor Unassigned, [place] [facility] CONSENT/REFUSAL FOR DIAGNOSIS AND TREATMENT 2023-03-30 06:18:56 Doctor Unassigned, [place] [facility] POCT URINALYSIS 2023-03-25 20:58:00 Astrid Michelle [facility] TDAP VACCINE, >11 YRS, IM 2023-03-10 19:12:46 Astrid Ewing [facility] POCT URINALYSIS 2023-03-10 18:56:00 Astrid Michelle [facility] ASSIGNMENT OF BENEFITS 2023-03-05 23:16:28 Docto r Unassigned, [place] [facility] CONSENT/REFUSAL FOR DIAGNOSIS AND TREATMENT 2023-03-05 23:13:58 Doctor Unassigned, [place] [facility] SECOND AND THIRD TRIMESTER ULTRASOUND 2023-01-07 14:36:00 Astrid Michelle [facility] POCT URINALYSIS 2022-11-25 14:21:00 Astrid Michelle [facility] FIRST TRIMESTER ULTRASOUND 2022-10-28 15:47:00 Astrid Heredia [facility] POCT URINALYSIS 2022-10-01 00:00:00 Astrid Michelle [facility] GC & CHLAMYDIA AMPLIFIED ASSAY 2022-09-03 14:20:00 Astrid Michelle [facility] HB ABO GROUPING 2022-09-03 14:05:00 Astrid Michelle [facility] CBC WITH DIFF 2022-09-03 14:04:00 Astrid Michelle [facility] RUBELLA SCREEN IGG 2022-09-03 14:04:00 Gladys Michelle [facility] VZV ANTIBODY SCREEN 2022-09-03 14:04:00 Roxanne Michelle [facility] HEPATITIS B SURFACE ANTIGEN 2022-09-03 14:04:00 Astrid Michelle [facility] HIV 1/2 AG-AB WITH REFLEX 2022-09-03 14:04:00 Astrid Ewing [facility] SYPHILIS IGG/IGM 2022-09-03 14:04:00 Astrid Michelle [facility] POCT TEST 2022-09-03 12:56:00 Roxanne Michelle [facility] POCT URINALYSIS W/O SPECIFIC GRAVITY 2022-09-03 12:56:00 Astrid Michelle [facility] NO SHOW OR MISSED APPOINTMENT POLICY ACKNOWLEDGEMENT 2022-09-03 12:33:42 Doctor Unassigned, [place] [facility] CONSENT/REFUSAL FOR DIAGNOSIS AND TREATMENT 2022-07-11 21:42:17 Doctor Unassigned, [place] [facility] GARDASIL 9 (HPV 9V) VACCINE 2022-06-06 16:20:14 Lian Simms [facility] PATIENT FINANCIAL POLICY 2022-06-06 15:35:51 Doctor Unassigned, [place] [facility] RHEUMATOID FACTOR 2022-05-23 16:32:00 Landeros-Orpura paulson [facility] C-REACTIVE PROTEIN 2022-05-23 16:32:00 Leti-Or ochoa [facility] C4 COMPLEMENT 2022-05-23 16:32:00 Landeros-Karthikeyan [facility] ANTI-NUCLEAR ANTIBODY SCREEN 2022-05-23 16:32:00 Leti-Karthikeyan [facility] HCV ANTIBODY 2022-05-23 16:32:00 Carolina [facility] VITAMIN D, 25-OH 2022-05-23 16:32:00 Leti-Ornanette villarreal [facility] ANTI-SSA(RO) 2022-05-23 16:32:00 [place] [facility] ANTI-DOUBLE STRANDED DNA 2022-05-23 16:32:00 Rafiq Hernandez [facility] ANTI-NUCLEAR ANTIBODY-PATHOLOGIST INTERPRETATION 2022-05-23 16:32:00 Carolina [facility] COMP. METABOLIC PANEL (96352) 2022-05-12 16:03:00 [facility] 2022-05-12 16:03[facility]00 [facility] 2022-04-26 09:49:00 [facility] WITH DIFF 2022-04-26 09:49:00 Jenusaitis, Evieshae [facility] VENOUS CORD GAS 2022-04-25 09:46:00 Chapincito [facility] VENOUS CORD GAS 2022-04-25 09:46:00 Chapincito [facility] SECTION 2022-04-25 08:35:00 Hermann Martino [facility] CENTRAL NEURAXIAL BLOCK 2022-04-24 17:48:00 Jessica Hazel [facility] SGOT (ASPARTATE AMINO TRANSFER) 2022-04-24 05:40:00 Ken, [facility] CREATININE 2022-04-24 05:40:00 Ken, Layton [facility] ALANINE AMINO TRANSFERASE(SGPT 2022-04-24 05:40:00 Ken, [facility] LACTATE DEHYDROGENASE 2022-04-24 05:40:00 Ken, Aspe n [facility] URIC ACID 2022-04-24 05:40:00 [facility] 2022-04-24 05:40:00 Ken, [facility] PROTEIN CREAT RATIO URINE RANDOM 2022-04-24 05:40:00 Ken, [facility] SGOT (ASPARTATE AMINO TRANSFER) 2022-04-24 05:40:00 Ken, [facility] CREATININE 2022-04-24 05:40:00 Ken, [facility] ALANINE AMINO TRANSFERASE(SGPT 2022-04-24 05:40:00 Ken, [facility] LACTATE DEHYDROGENASE 2022-04-24 05:40:00 Ken, Aspe n [facility] URIC ACID 2022-04-24 05:40:00 Ken, Layton [facility] URINALYSIS 2022-04-24 05:40:00 Ken [facility] PROTEIN CREAT RATIO URINE RANDOM 2022-04-24 05:40:00 Ken, [facility] CBC WITH DIFF 2022-04-24 02:47:00 Bl[facility]ne [facility] HEPATITIS B SURFACE ANTIGEN 2022-04-24 02:47:00 Chapincito [facility] HIV 1/2 AG-AB WITH REFLEX 2022-04-24 02:47:00 Aide Beckham [facility] SYPHILIS IGG/IGM 2022-04-24 02:47:00 Blayne Beckham [facility] CBC WITH DIFF 2022-04-24 02:47:00 Blayne [facility] HEPATITIS B SURFACE ANTIGEN 2022-04-24 02:47:00 Chapincito [facility] HIV 1/2 AG-AB WITH REFLEX 2022-04-24 02:47:00 Aide Beckham [facility] SYPHILIS IGG/IGM 2022-04-24 02:47:00 Blayne Beckham [facility] HB ABO GROUPING 2022-04-24 02:43:00 Chapincito [facility] RHO (D) IMMUNE GLOBULIN 2022-04-24 02:43:00 Jenusajose [facility] HB ABO GROUPING 2022-04-24 02:43:00 Chapincito [facility] RHO (D) IMMUNE GLOBULIN 2022-04-24 02:43:00 Jenusaitis [facility] POCT URINALYSIS 2022-04-23 14:02:00 Lian Simms [facility] POCT URINALYSIS 2022-04-16 00:00:00 Lian Simms [facility] POCT URINALYSIS 2022-04-08 14:56:00 Lian Simms [facility] POCT URINALYSIS 2022-03-25 00:00:00 Lian Simms [facility] POCT URINALYSIS 2022-03-13 19:22:00 Lian Simms [facility] 3 HR GLUCOSE TOLERANCE TEST 2022-02-27 17:23:00 Astrid Michelle [facility] 2 HR GLUCOSE TOLERANCE TEST 2022-02-27 16:23:00 Astrid Michelle [facility] 1 HR GLUCOSE TOLERANCE TEST 2022-02-27 15:23:00 Astrid Michelle [facility] POCT URINALYSIS 2022-02-27 14:29:00 Lian Simms [facility] GLUCOSE FASTING 2022-02-27 14:20:00 Astrid Michelle [facility] 3 HR GLUCOSE TOLERANCE PANEL 2022-02-27 14:20:00 Astrid Michelle [facility] HIV 1/2 AG-AB WITH REFLEX 2022-02-27 14:20:00 Lian Simms [facility] GALV ONLY - SYPHILIS IGG/IGM 2022-02-27 14:20:00 Lian Simms [facility] POCT URINALYSIS 2022-02-14 20:25:00 Lian Simms [facility] AMYLASE 2022-02-06 01:15:00 Madhuri Orozco [facility] LIPASE 2022-02-06 01:15:00 Madhuri Orozco [facility] COMP. METABOLIC PANEL ([id number]) 2022-02-06 01:15:00 Madhuri Orozco [facility] CBC WITH DIFF 2022-02-06 01:15:00 Madhuri [facility] US ABDOMEN LIMITED 2022-02-06 00:52:51 Madhuir Orozco U [facility] CONSENT/REFUSAL FOR DIAGNOSIS AND TREATMENT 2022-02-05 21:54:06 Doctor Unassigned, [place] [facility] ASSIGNMENT OF BENEFITS 2022-02-02 21:50:55 Docto r Unassigned, [place] [facility] CONSENT/REFUSAL FOR DIAGNOSIS AND TREATMENT 2022-02-02 21:49:43 Doctor Unassigned, [place] [facility] GLUCOSE 1 HOUR POST PRANDIAL 2022-01-31 16:42:00 Astrid Michelle [facility] CBC WITH DIFF 2022-01-31 16:42:00 Astrid Michelle [facility] TDAP VACCINE, >11 YRS, IM 2022-01-31 15:55:44 Lian Simms [facility] POCT URINALYSIS 2022-01-31 15:44:00 Lian Simms [facility] POCT URINALYSIS 2022-01-02 00:00:00 Lian Simms [facility] URINALYSIS 2021-12-11 01:30:00 Lizett Wei [facility] CONSENT/REFUSAL FOR DIAGNOSIS AND TREATMENT 2021-12-11 00:26:08 Doctor Unassigned, [place] [facility] POCT URINALYSIS 2021-12-02 16:23:00 Lian Simms [facility] POCT URINALYSIS 2021-11-04 18:17:00 Lian Simms [facility] FIRST TRIMESTER TRISOMY SCRN 2021-10-25 20:33:00 Rosalia Purdy [facility] POCT URINALYSIS 2021-10-24 21:13:00 Lian Simms [facility] Encounters Start Date/Time End Date/Time Encounter Type Admission Type Attending Clinicians Care Facility Care Department Encounter ID Source 2023-03-30 02:04:44 Outpatient X [facility] [id number] [facility] 2023-03-05 18:32:04 Outpatient X OROZCOBUSHRAEN [facility] [id number] [facility] 2022-02-02 18:33:42 Outpatient X [facility] [id number] [facility] 2023-04-08 15:00:00 2023-04-08 15:00:00 Outpatient P [facility] [id number] [facility] 2023-04-07 15:30:00 2023-04-07 15:30:00 Outpatient R ASTRID MICHELLE [facility] [id number] [facility] 2023-03-30 00:28:00 2023-03-30 01:49:00 Outpatient X ERNESTO MADHURI [facility] [id number] [facility] 2023-03-30 00:28:00 2023-03-30 01:49:00 Emergency Madhuri Orozco [facility] 1.2.840.114 350.1.13.10 4.2.7.2.686 [id number] [facility] 2023-03-29 00:00:00 2023-03-29 00:00:00 Nurse Triage Emelia Odonnell [facility] 1.2840.114 350.1.13.10 4.2.7.2.686 [id number] [facility] 2023-03-26 00:00:00 2023-03-26 00:00:00 Telephone Astrid Michelle [facility] ENCODING CLERK [facility]ERNAL & [facility]ILD [facility] 1.2840.114 350.1.13.10 4.2.7.2.686 [id number] [facility] 2023-03-25 15:00:00 2023-03-25 15:11:42 Outpatient R ASTRID MICHELLE [facility] [id number] [facility] 2023-03-25 15:00:00 2023-03-25 15:11:42 Routine Visit Astrid Michelle [facility] ENCODING CLERK [facility] MATERNAL & CHILD [facility] 1.20.114 350.1.13.10 4.2.7.2.686 [id number] [facility] 2023-03-24 15:30:00 2023-03-24 15:30:00 Outpatient R ASTRID MICHELLE [facility] [id number] [facility] 2023-03-17 07:45:00 2023-03-17 07:45:00 Outpatient R ASTRID MICHELLE [facility] [id number] [facility] 2023-03-14 00:00:00 2023-03-14 00:00:00 Telephone Astrid Michelle [facility] ENCODING CLERK [facility] & CHILD [facility] 1.2.840.114 350.1.13.10 4.2.7.2.686 [id number] [facility] 2023-03-11 00:00:00 2023-03-11 00:00:00 Case Management Astrid Michelle [facility] ENCODING CLERK [facility] & CHILD [facility] 1.2.840.114 350.1.13.10 4.2.7.2.686 [id number] [facility] 2023-03-11 00:00:00 2023-03-11 00:00:00 Telephone Astrid Michelle [facility] ENCODING CLERK [facility] & CHILD [facility] 1.2.840.114 350.1.13.10 4.2.7.2.686 [id number] [facility] 2023-03-10 12:45:00 2023-03-10 13:58:59 Outpatient R ASTRID MICHELLE [facility] [id number] [facility] 2023-03-10 12:45:00 2023-03-10 13:58:59 Routine Visit Astrid Michelle [facility] ENCODING CLERK [facility] & CHILD [facility] 1.2.840.114 350.1.13.10 4.2.7.2.686 [id number] [facility] 2023-03-10 11:00:00 2023-03-10 11:00:00 Outpatient R ROVERTO CONTRERAS [facility] [id number] [facility] 2023-03-05 17:19:00 2023-03-05 18:05:00 Outpatient X LIZETT WEI [facility] [id number] [facility] 2023-03-05 17:19:00 2023-03-05 18:05:00 Emergency Karol Cavazos Vivian L [facility] 1.2.840.114 350.1.13.10 4.2.7.2.686 [id number] [facility] 2023-03-05 00:00:00 2023-03-05 00:00:00 Nurse Triage Judy Cat [facility] 1.2840.114 350.1.13.10 4.2.7.2.686 [id number] [facility] 2023-01-15 00:00:00 2023-01-15 00:00:00 Nurse Triage Martha Frye [facility] 1.2840.114 350.1.13.10 4.2.7.2.686 [id number] [facility] 2023-01-07 08:00:00 2023-01-07 09:08:36 Outpatient EMILEE MCKEON [facility] [id number] [facility] 2023-01-07 08:00:00 2023-01-07 09:08:36 Poising Inspector Visit Ultrasound, Marcos-Emilee Franklinuvmildred [facility] ENCODING CLERK [facility] 1.2840.114 350.1.13.10 4.2.7.2.686 [id number] [facility] 2023-01-07 00:00:00 2023-01-07 00:00:00 Case Management Astrid Michelle [facility] ENCODING CLERK [facility]NAL [facility] CHILD [facility] 1.2840.114 350.1.13.10 4.2.7.2.686 [id number] [facility] 2022-12-23 10:15:00 2022-12-23 10:15:00 Outpatient R PJPuraASTRID [facility] [id number] [facility] 2022-11-25 09:30:00 2022-11-25 10:14:28 Outpatient R PJPura ASTRID [facility] [id number] [facility] 2022-11-25 09:30:00 2022-11-25 10:14:28 Routine Visit Astrid Michelle [facility] ENCODING CLERK [facility] 1..840.114 350.1.13.10 4.2.7.2.686 [id number] [facility] 2022-11-19 10:15:00 2022-11-19 10:30:00 Office Visit Phil Torres [facility] 1..840.114 350.1.13.10 4.2.7.2.686 [id number] [facility] 2022-11-19 10:15:00 2022-11-19 10:15:00 Outpatient R PHIL TORRES [facility] [id number] [facility] 2022-11-12 10:15:00 2022-11-12 10:15:00 Outpatient R PHIL TORRES [facility] [id number] [facility] 2022-11-07 10:00:00 2022-11-07 10:00:00 Outpatient R [facility] [id number] [facility] 2022-11-06 10:45:00 2022-11-06 10:45:00 Outpatient R PHIL TORRES [facility] [id number] [facility] 2022-10-30 15:15:00 2022-10-30 15:15:00 Outpatient R PHIL TORRES [facility] [id number] [facility] 2022-10-28 11:00:00 2022-10-28 11:38:31 Routine Visit Lian Simms [facility] ENCODING CLERK [facility]NAL [facility] CHILD [facility] 1.2.840.114 350.1.13.10 4.2.7.2.686 [id number] [facility] 2022-10-28 10:00:00 2022-10-28 11:38:10 Poising Inspector Visit Ultrasound, [facility] Lian Simms Corey [facility] ENCODING CLERK [facility] & CHILD [facility] 1.2.840.114 350.1.13.10 4.2.7.2.686 [id number] [facility] 2022-10-28 10:00:00 2022-10-28 11:38:10 Outpatient CHIP BONNER COREY [facility] [id number] [facility] 2022-10-28 00:00:00 2022-10-28 00:00:00 Case Management Astrid Michelle [facility] ENCODING CLERK [facility] CHILD [facility] 1.2840.114 350.1.13.10 4.2.7.2.686 [id number] [facility] 2022-10-24 00:00:00 2022-10-24 00:00:00 Telephone Astrid Michelle [facility] ENCODING CLERK [facility] & CHILD [facility] 1.2.840.114 350.1.13.10 4.2.7.2.686 [id number] [facility] 2022-10-23 11:05:44 2022-10-23 23:59:00 Outpatient SHEELA RODRIGUEZ [facility] [id number] [facility] 2022-10-23 11:00:00 2022-10-23 23:59:00 Hospital Encounter Sheela Jalloh [facility] 1.2.840.114 350.1.13.10 4.2.7.2.686 [id number] [facility] 2022-10-01 11:00:00 2022-10-01 11:25:42 Outpatient R ASTRID MICHELLE [facility] [id number] [facility] 2022-10-01 11:00:00 2022-10-01 11:25:42 Routine Visit Astrid Michelle [facility] ENCODING CLERK [facility] & CHILD [facility] 1..840.114 350.1.13.10 4.2.7.2.686 [id number] [facility] 2022-09-18 00:00:00 2022-09-18 00:00:00 Outpatient SHEELA RODRIGUEZ [facility] [id number] [facility] 2022-09-11 10:00:00 2022-09-11 10:41:29 Outpatient SHEELA RODRIGUEZ [facility] [id number] [facility] 2022-09-11 10:00:00 2022-09-11 10:41:29 Office Visit Sheela Jalloh [facility] 1..840.114 350.1.13.10 4.2.7.2.686 [id number] [facility] 2022-09-04 00:00:00 2022-09-04 00:00:00 Telephone Astrid Michelle [facility] ENCODING CLERK [facility] & CHILD [facility] ..840.114 350.1.13.10 4.2.7.2.686 [id number] [facility] 2022-09-03 08:15:00 2022-09-03 09:04:32 Outpatient R ASTRID MICHELLE [facility] [id number] [facility] 2022-09-03 08:15:00 2022-09-03 09:04:32 Initial Visit Astrid Michelle [facility] ENCODING CLERK [facility]ILD [facility] 1.2840.114 350.1.13.10 4.2.7.2.686 [id number] [facility] 2022-09-03 00:00:00 2022-09-03 00:00:00 Orders Only Doctor Unassigned, Grandin [facility] 1.2840.114 350.1.13.10 4.2.7.2.686 [id number] [facility] 2022-07-11 16:50:00 2022-07-11 17:01:00 Emergency X JADE GALLOWAY [facility] ERT [id number] [facility] 2022-07-11 16:50:00 2022-07-11 17:01:00 Emergency Jade Galloway [facility] 1.840.114 350.1.13.10 4.2.7.2.686 [id number] [facility] 2022-06-18 00:00:00 2022-06-18 00:00:00 Patient Secure Msg Landeros-Thomas Johnson [facility] 1..114 350.1.13.10 4.2.7.2.686 [id number] [facility] 2022-06-12 10:00:00 2022-06-12 10:12:19 Outpatient R SHEELA JALLOH [facility] [id number] [facility] 2022-06-12 10:00:00 2022-06-12 10:12:19 Office Visit Sheela Jalloh [facility] PROFESSIO [facility] 1..114 350.1.13.10 4.2.7.2.686 [id number] [facility] 2022-06-06 11:00:00 2022-06-06 11:34:30 Outpatient R LIAN SIMMS [facility] [id number] [facility] 2022-06-06 11:00:00 2022-06-06 11:34:30 Office Visit Lian Simms [facility] ENCODING CLERK [facility] & CHILD [facility] 1..114 350.1.13.10 4.2.7.2.686 [id number] [facility] 2022-06-06 00:00:00 2022-06-06 00:00:00 Orders Only Doctor Unassigned, Grandin [facility] 1..114 350.1.13.10 4.2.7.2.686 [id number] [facility] 2022-05-23 13:45:00 2022-05-23 14:00:00 Poising Inspector Visit Pcp-Analia Alejo [facility] 1..114 350.1.13.10 4.2.7.2.686 [id number] [facility] 2022-05-23 10:30:00 2022-05-23 11:27:53 Outpatient R ANALIA WILLS [facility] [id number] [facility] 2022-05-23 10:30:00 2022-05-23 11:27:53 Office Visit Thomas Mccallum Vijaya Laxmi [facility] 1..114 350.1.13.10 4.2.7.2.686 [id number] [facility] 2022-05-16 10:00:00 2022-05-16 10:33:34 Outpatient R LIAN SIMMS [facility] [id number] [facility] [facility] 2022-05-16 10:00:00 2022-05-16 10:33:34 Routine Visit Lian Simms [facility] ENCODING CLERK [facility] & CHILD [facility] 1..114 350.1.13.10 4.2.7.2.686 [id number] 107 [id number] [facility] 2022-05-12 13:30:00 2022-05-12 13:45:00 Poising Inspector Visit 2, Adc Lab Sheela Jalloh [facility] 1..840.114 350.1.13.10 4.2.7.2.686 [id number] [facility] 2022-05-12 10:00:00 2022-05-12 10:58:05 Outpatient R SHEELA JALLOH [facility] [id number] [facility] 2022-05-12 10:00:00 2022-05-12 10:58:05 Office Visit Sheela Jalloh [facility] 1..840.114 350.1.13.10 4.2.7.2.686 [id number] [id number] [facility] 2022-05-06 09:00:00 2022-05-06 09:32:21 Nurse Visit Visit, Lian Alexander [facility] ENCODING CLERK [facility] CHILD [facility] 1.840.114 350.1.13.10 4.2.7.2.686 [id number] 107 [id number] [facility] 2022-05-06 09:00:00 2022-05-06 09:00:00 Outpatient R LIAN SIMMS [facility] [id number] [facility] 2022-05-02 09:30:00 2022-05-02 09:59:05 Outpatient R LIAN SIMMS [facility] [id number] [facility] 2022-05-02 09:30:00 2022-05-02 09:59:05 Nurse Visit Visit, Lian Alexander [facility] 1..840.114 350.1.13.10 4.2.7.2.686 [id number] 107 [id number] [facility] 2022-04-23 18:02:00 2022-04-26 22:17:00 Hospital Encounter Chip Adams [facility] 1.2.840.114 350.1.13.10 4.2.7.2.686 [id number] [facility] 2022-04-26 00:00:00 2022-04-26 00:00:00 Telephone Lian Simms [facility] ENCODING CLERK [facility] MATERNAL & CHILD [facility] 1.2.840.114 350.1.13.10 4.2.7.2.686 [id number] 107 [id number] [facility] 2022-04-25 02:10:00 2022-04-25 03:52:00 Surgery Phil Vitorshanel [facility] 1.2.840.114 350.1.13.10 4.2.7.2.686 [id number] [facility] 2022-04-24 11:17:00 2022-04-24 11:17:00 Anesthesia Event Daquan Bowman Ryan C S [facility] 1.2.840.114 350.1.13.10 4.2.7.2.686 [id number] [facility] 2022-04-23 08:00:00 2022-04-23 08:21:15 Outpatient R LIAN SIMMS [facility] [id number] [facility] 2022-04-23 08:00:00 2022-04-23 08:21:15 Routine Visit Lian Simms [facility] ENCODING CLERK [facility] CHILD [facility] 1.2.840.114 350.1.13.10 4.2.7.2.686 [id number] 107 [id number] [facility] 2022-04-23 08:00:00 2022-04-23 08:21:15 Outpatient R DEMI LIAN [facility] [id number] [facility] 2022-04-22 00:00:00 2022-04-22 00:00:00 Refill Иванderikfaby Lian Brizuela [facility] ENCODING CLERK [facility] CHILD [facility] 1.2.840.114 350.1.13.10 4.2.7.2.686 [id number] 107 [id number] [facility] 2022-04-16 13:15:00 2022-04-16 13:35:23 Outpatient R LIAN SIMMS [facility] [id number] [facility] 2022-04-16 13:15:00 2022-04-16 13:35:23 Routine Visit Lian Simms [facility] ENCODING CLERK [facility] CHILD [facility] 1..840.114 350.1.13.10 4.2.7.2.686 [id number] 107 [id number] [facility] 2022-04-09 00:00:00 2022-04-09 00:00:00 Telephone Demi Lian Brizuela [facility] ENCODING CLERK [facility] CHILD [facility] 1..840.114 350.1.13.10 4.2.7.2.686 [id number] 107 [id number] [facility] 2022-04-08 09:00:00 2022-04-08 09:53:37 Outpatient R LIAN SIMMS [facility] [id number] [facility] 2022-04-08 09:00:00 2022-04-08 09:53:37 Routine Visit Lian Simms [facility] ENCODING CLERK [facility] CHILD [facility] 1.2.840.114 350.1.13.10 4.2.7.2.686 [id number] 107 [id number] [facility] 2022-03-27 14:45:00 2022-03-27 14:45:00 Outpatient R LIAN SIMMS [facility] [id number] [facility] 2022-03-27 00:00:00 2022-03-27 00:00:00 Telephone Eddie Simmsilola Chata [facility] ENCODING CLERK [facility] CHILD [facility] 1.2.840.114 350.1.13.10 4.2.7.2.686 [id number] 107 [id number] [facility] 2022-03-27 00:00:00 2022-03-27 00:00:00 Telephone Eddie Simmsilola Chata [facility] ENCODING CLERK [facility] & CHILD [facility] 1.2.840.114 350.1.13.10 4.2.7.2.686 [id number] 107 [id number] [facility] 2022-03-25 09:00:00 2022-03-25 09:39:39 Outpatient R LIAN SIMMS [facility] [id number] [facility] 2022-03-25 09:00:00 2022-03-25 09:39:39 Routine Visit Lian Simms [facility] ENCODING CLERK [facility] CHILD [facility] 1.2.840.114 350.1.13.10 4.2.7.2.686 [id number] 107 [id number] [facility] 2022-03-25 00:00:00 2022-03-25 00:00:00 Telephone Demi Lian Brizuela [facility] ENCODING CLERK [facility] CHILD [facility] 1.2.840.114 350.1.13.10 4.2.7.2.686 [id number] 107 [id number] [facility] 2022-03-24 00:00:00 2022-03-24 00:00:00 Telephone Julio CfabyEddieLian C [facility] ENCODING CLERK [facility] CHILD [facility] 1.2.840.114 350.1.13.10 4.2.7.2.686 [id number] 107 [id number] [facility] 2022-03-17 00:00:00 2022-03-17 00:00:00 Nurse Triage Jose Cruz Fowler [facility] 1..840.114 350.1.13.10 4.2.7.2.686 [id number] [facility] 2022-03-13 13:15:00 2022-03-13 13:43:58 Outpatient R LIAN SIMMS [facility] [id number] [facility] 2022-03-13 13:15:00 2022-03-13 13:43:58 Routine Visit Lian Simms [facility] ENCODING CLERK [facility] CHILD [facility] 1..840.114 350.1.13.10 4.2.7.2.686 [id number] 107 [id number] [facility] 2022-02-27 08:00:00 2022-02-27 08:59:40 Outpatient R LIAN SIMMS [facility] [id number] [facility] 2022-02-27 08:00:00 2022-02-27 08:59:40 Routine Visit Lian Simms [facility] ENCODING CLERK [facility] CHILD [facility] 1..840.114 350.1.13.10 4.2.7.2.686 [id number] 107 [id number] [facility] 2022-02-19 00:00:00 2022-02-19 00:00:00 Telephone Provider, Donte Bird [facility] ENCODING CLERK [facility] CHILD [facility] 1..840.114 350.1.13.10 4.2.7.2.686 [id number] 107 [id number] [facility] 2022-02-14 13:45:00 2022-02-14 14:46:03 Outpatient R LIAN SIMMS [facility] [id number] [facility] 2022-02-14 13:45:00 2022-02-14 14:46:03 Routine Visit Provider, Eddie Langfordilola C [facility] ENCODING CLERK [facility] & CHILD [facility] 1.2.840.114 350.1.13.10 4.2.7.2.686 [id number] 107 [id number] [facility] 2022-02-14 09:45:00 2022-02-14 09:45:00 Outpatient R LIAN SIMMS [facility] [id number] [facility] 2022-02-07 00:00:00 2022-02-07 00:00:00 Telephone Lian Simms [facility] ENCODING CLERK [facility] CHILD [facility] 1.2840.114 350.1.13.10 4.2.7.2.686 [id number] 107 [id number] [facility] 2022-02-05 16:03:00 2022-02-05 21:25:00 Outpatient X MADHURI OROZCO [facility] [id number] [facility] 2022-02-05 16:03:00 2022-02-05 21:25:00 Emergency Madhuri Orozco [facility] 1.2.840.114 350.1.13.10 4.2.7.2.686 [id number] [facility] 2022-02-05 00:00:00 2022-02-05 00:00:00 Telephone Lian Simms [facility] ENCODING CLERK [facility] CHILD [facility] 1.2.840.114 350.1.13.10 4.2.7.2.686 [id number] 107 [id number] [facility] 2022-02-04 00:00:00 2022-02-04 00:00:00 Telephone Lian Simms [facility] ENCODING CLERK [facility] CHILD [facility] 1.2.840.114 350.1.13.10 4.2.7.2.686 [id number] 107 [id number] [facility] 2022-02-02 15:56:00 2022-02-02 17:30:00 Outpatient X ADUM, LIZETT [facility] [id number] [facility] 2022-02-02 15:56:00 2022-02-02 17:30:00 Emergency Adum, Lizett Jimenez [facility] 1.84.114 350.1.13.10 4.2.7.2.686 [id number] [facility] 2022-02-02 00:00:00 2022-02-02 00:00:00 Case Management Astrid Michelle [facility] ENCODING CLERK [facility] CHILD [facility] 1.84.114 350.1.13.10 4.2.7.2.686 [id number] 107 [id number] [facility] 2022-01-31 09:45:00 2022-01-31 10:15:27 Outpatient R LIAN SIMMS [facility] [id number] [facility] 2022-01-31 09:45:00 2022-01-31 10:15:27 Routine Visit Lian Simms [facility] ENCODING CLERK [facility] CHILD [facility] 1.84.114 350.1.13.10 4.2.7.2.686 [id number] 107 [id number] [facility] 2022-01-02 10:45:00 2022-01-02 11:43:22 Outpatient R ASTRID MICHELLE [facility] [id number] [facility] 2022-01-02 10:45:00 2022-01-02 11:43:22 Routine Visit Provider, Ang-Rmchp Astrid Berry [facility] ENCODING CLERK [facility] CHILD [facility] 1.840.114 350.1.13.10 4.2.7.2.686 [id number] 107 [id number] [facility] 2021-12-30 11:00:00 2021-12-30 11:00:00 Outpatient R LIAN SIMMS [facility] [id number] [facility] 2021-12-19 00:00:00 2021-12-19 00:00:00 Abstract Lian Simms [facility] ENCODING CLERK [facility] CHILD [facility] 1.2.840.114 350.1.13.10 4.2.7.2.686 [id number] 107 [id number] [facility] 2021-12-13 13:00:00 2021-12-13 14:15:00 Poising Inspector Visit Ultrasound, Josesito Correia [facility] ENCODING CLERK [facility] CHILD [facility] 1.2840.114 350.1.13.10 4.2.7.2.686 [id number] [facility] 2021-12-13 13:00:00 2021-12-13 13:00:00 Outpatient JOSESITO FOSTER SHANNON [facility] [id number] [facility] 2021-12-10 19:40:00 2021-12-10 21:30:00 Outpatient X ADUMLIZETT [facility] [id number] [facility] 2021-12-10 19:40:00 2021-12-10 21:30:00 Emergency AdumLizett [facility] 1.2840.114 350.1.13.10 4.2.7.2.686 [id number] [facility] 2021-12-10 00:00:00 2021-12-10 00:00:00 Orders Only Doctor Unassigned, Grandin [facility] 1.20.114 350.1.13.10 4.2.7.2.686 [id number] [facility] 2021-12-02 11:00:00 2021-12-02 11:28:34 Outpatient R LIAN SIMMS [facility] [id number] [facility] 2021-12-02 11:00:00 2021-12-02 11:28:34 Routine Visit Lain Simms Chata [facility] ENCODING CLERK [facility] 1.2.840.114 350.1.13.10 4.2.7.2.686 [id number] 107 [id number] [facility] 2021-11-04 12:45:00 2021-11-04 13:34:38 Outpatient R LIAN SIMMS [facility] [id number] [facility] 2021-11-04 12:45:00 2021-11-04 13:34:38 Routine Visit Lian Simms [facility] ENCODING CLERK [facility] CHILD [facility] 1..840.114 350.1.13.10 4.2.7.2.686 [id number] 107 [id number] [facility] 2021-11-04 12:45:00 2021-11-04 12:45:00 Outpatient R LIAN SIMMS [facility] [id number] [facility] 2021-10-29 00:00:00 2021-10-29 00:00:00 Abstract Lian Simms [facility] ENCODING CLERK [facility] CH[facility] 1..840.114 350.1.13.10 4.2.7.2.686 [id number] 107 [id number] [facility] 2021-10-25 15:00:00 2021-10-25 15:39:34 Poising Inspector Visit [facility] ENCODING CLERK [facility] CHILD [facility] 1..840.114 350.1.13.10 4.2.7.2.686 [id number] [facility] 2021-10-25 15:00:00 2021-10-25 15:00:00 Outpatient CRISPIN HERNANDEZ LAUREN [facility] [id number] [facility] 2021-10-25 14:00:00 2021-10-25 14:45:00 Poising Inspector Visit 1, [facility] Room Joey Silva [facility] ENCODING CLERK [facility] CH[facility] 1.2840.114 350.1.13.10 4.2.7.2.686 [id number] [facility] 2021-10-25 14:00:00 2021-10-25 14:00:00 Outpatient P [facility] [id number] [facility] 2021-10-25 00:00:00 2021-10-25 00:00:00 Case Management Rosalia Purdy [facility] ENCODING CLERK [facility] 1.2840.114 350.1.13.10 4.2.7.2.686 [id number] [facility] 2021-10-24 15:15:00 2021-10-24 16:00:28 Outpatient JOHNNY ALARCON [facility] [id number] [facility] 2021-10-24 15:15:00 2021-10-24 16:00:28 Routine Visit Risk, Ang-Rmchp-N p/High Johnny Warner [facility] ENCODING CLERK [facility] 1.2.840.114 350.1.13.10 4.2.7.2.686 [id number] 107 [id number] [facility] 2021-10-17 00:00:00 2021-10-17 00:00:00 Telephone Lian Simms [facility] ENCODING CLERK [facility] CH[facility] 1..840.114 350.1.13.10 4.2.7.2.686 [id number] 107 [id number] [facility] 2021-10-07 13:00:00 2021-10-07 13:29:01 Outpatient R LIAN SIMMS [facility] [id number] [facility] 2021-10-07 13:00:2021-10-07 13:15:00 Routine Visit Lian Simms [facility] ENCODING CLERK [facility] CH[facility] 1..840.114 350.1.13.10 4.2.7.2.686 [id number] 107 [id number] [facility] 2021-10-07 13:00:00 2021-10-07 13:00:00 Outpatient R LIAN SIMMS [facility] [id number] [facility] 2021-09-30 10:00:00 2021-09-30 10:51:05 Outpatient JOSESITO ARIAS SHANNON [facility] [id number] [facility] 2021-09-30 10:00:00 2021-09-30 10:51:05 Routine Visit Faculty, Josesito Solorzano [facility] ENCODING CLERK [facility] CHILD [facility] 1..840.114 350.1.13.10 4.2.7.2.686 [id number] 107 [id number] [facility] 2021-09-30 10:00:00 2021-09-30 10:51:05 Outpatient JOSESITO ARIAS SHANNON [facility] [id number] [facility] 2021-09-30 10:00:00 2021-09-30 10:00:00 Outpatient R [facility] [id number] [facility] 2021-09-30 10:00:00 2021-09-30 10:00:00 Outpatient R [facility] [id number] [facility] 2021-09-30 10:00:00 2021-09-30 10:00:00 Outpatient R [facility] [id number] [facility] 2021-09-24 00:00:00 2021-09-24 00:00:00 Telephone Lian Simms [facility] ENCODING CLERK [facility] CHILD [facility] 1..840.114 350.1.13.10 4.2.7.2.686 [id number] 107 [id number] [facility] 2021-09-18 00:00:00 2021-09-18 00:00:00 Telephone Lian Simms [facility] ENCODING CLERK [facility] CHILD [facility] 1.2.840.114 350.1.13.10 4.2.7.2.686 [id number] 107 [id number] [facility] 2021-09-10 00:00:00 2021-09-10 00:00:00 Orders Only Doctor Unassigned, Grandin [facility] 1.2.840.114 350.1.13.10 4.2.7.2.686 [id number] [facility] 2021-09-09 00:00:00 2021-09-09 00:00:00 Telephone Lian Simms [facility]N [facility] 1.2.840.114 350.1.13.10 4.2.7.2.686 [id number] 107 [id number] [facility] 2021-09-06 00:00:00 2021-09-06 00:00:00 Nurse Triage Vicki Gardner [facility] 1.2.840.114 350.1.13.10 4.2.7.2.686 [id number] [facility] 2021-09-06 00:00:00 2021-09-06 00:00:00 Nurse Triage Martha Frye [facility] 1.2.840.114 350.1.13.10 4.2.7.2.686 [id number] [facility] 2021-09-05 00:00:00 2021-09-05 00:00:00 Telephone Lian Simms [facility] 1.2.840.114 350.1.13.10 4.2.7.2.686 [id number] 107 [id number] [facility] 2021-09-02 15:00:00 2021-09-02 16:51:33 Outpatient R LIAN SIMMS [facility] [id number] [facility] 2021-09-02 15:00:00 2021-09-02 16:51:33 Outpatient R LIAN SIMMS [facility] [id number] [facility] 2021-09-02 15:00:00 2021-09-02 16:51:33 Initial Visit Lian Simms Chata [facility] ENCODING CLERK [facility] 1.2.840.114 350.1.13.10 4.2.7.2.686 [id number] [facility] 2021-09-02 15:00:00 2021-09-02 16:51:33 Outpatient R LIAN SIMMS [facility] [id number] [facility] 2021-09-02 15:00:00 2021-09-02 15:00:00 Outpatient R LIAN SIMMS [facility] [id number] [facility] 2021-09-02 15:00:00 2021-09-02 15:00:00 Outpatient R LIAN SIMMS [facility] [id number] [facility] 2021-09-02 00:00:00 2021-09-02 00:00:00 Orders Only Doctor Unassigned, Grandin [facility] 1.2.840.114 350.1.13.10 4.2.7.2.686 [id number] [facility] Results Test Description Test Time Test Comments Results Result [facility] [id number] 18:56:00* Test Item Value Reference Range Interpretation Comme nts POCT U SP GRAV (test code = 3255) . 1.005-1.025 POCT PH U (test code = 3254) 8 mg/dl 5-8 POCT U LEUK EST (test code = 3263) Trace Negative - Negative POCT U NIT (test code = 3262) Neg Negative - Negati ve POCT U PROT (test code = 3259) 1+ Negative - Negat sydney POCT U GLU (test code = 3256) Nml Negative - Negati ve POCT U KETONE (test code = 3258) None Negative - Neg ative POCT U UROBILI (test code = 3260) . 0.2-1 POCT U BILI (test code = 3261) . Negative - Negat sydney POCT U BLD (test code = 3257) Trace Negative - Negati ve POCT U COLOR (test code = 3266) . POCT U APPEAR (test code = 3267) . [facility] URINALYSIS W SPECIFIC [id number] 18:56:00* Test Item Value Reference Range Interpretation Comme nts POCT U SP GRAV (test code = 3255) . 1.005-1.025 POCT PH U (test code = 3254) 8 mg/dl 5-8 POCT U LEUK EST (test code = 3263) Trace Negative - Negative POCT U NIT (test code = 3262) Neg Negative - Negati ve POCT U PROT (test code = 3259) 1+ Negative - Negat sydney POCT U GLU (test code = 3256) Nml Negative - Negati ve POCT U KETONE (test code = 3258) None Negative - Neg ative POCT U UROBILI (test code = 3260) . 0.2-1 POCT U BILI (test code = 3261) . Negative - Negat sydney POCT U BLD (test code = 3257) Trace Negative - Negati ve POCT U COLOR (test code = 3266) . POCT U APPEAR (test code = 3267) . [facility] URINALYSIS W SPECIFIC [id number] 18:56:00* Test Item Value Reference Range Interpretation Comme nts POCT U SP GRAV (test code = 3255) . 1.005-1.025 POCT PH U (test code = 3254) 8 mg/dl 5-8 POCT U LEUK EST (test code = 3263) Trace Negative - Negative POCT U NIT (test code = 3262) Neg Negative - Negati ve POCT U PROT (test code = 3259) 1+ Negative - Negat sydney POCT U GLU (test code = 3256) Nml Negative - Negati ve POCT U KETONE (test code = 3258) None Negative - Neg ative POCT U UROBILI (test code = 3260) . 0.2-1 POCT U BILI (test code = 3261) . Negative - Negat [place] POCT U BLD (test code = 3257) Trace Negative - Negati ve POCT U COLOR (test code = 3266) . POCT U APPEAR (test code = 3267) . [facility] URINALYSIS W SPECIFIC [id number] 14:21:00* Test Item Value Reference Range Interpretation Comme nts POCT U SP GRAV (test code = 3255) . 1.005-1.025 A POCT PH U (test code = 3254) 6 mg/dl 5-8 POCT U LEUK EST (test code = 3263) Trace Negative - Negative POCT U NIT (test code = 3262) Neg Negative - Negati ve POCT U PROT (test code = 3259) Trace Negative - Negat [place] POCT U GLU (test code = 3256) Neg Negative - Negati ve POCT U KETONE (test code = 3258) None Negative - Neg ative POCT U UROBILI (test code = 3260) . 0.2-1 POCT U BILI (test code = 3261) . Negative - Negat [place] POCT U BLD (test code = 3257) Trace Negative - Negati ve POCT U COLOR (test code = 3266) . POCT U APPEAR (test code = 3267) . Lab Interpretation (test cod e = [id number]) Abnormal [facility] URINALYSIS W SPECIFIC [id number] 16:06:00* Test Item Value Reference Range Interpretation Comme nts POCT U SP GRAV (test code = 3255) . 1.005-1.025 POCT PH U (test code = 3254) 6 mg/dl 5-8 POCT U LEUK EST (test code = 3263) negative Negative - Negative POCT U NIT (test code = 3262) negative Negative - Negati ve POCT U PROT (test code = 3259) trace Negative - Negat [place] POCT U GLU (test code = 3256) negative Negative - Negati ve POCT U KETONE (test code = 3258) negative Negative - Neg ative POCT U UROBILI (test code = 3260) . 0.2-1 POCT U BILI (test code = 3261) . Negative - Negat [place] POCT U BLD (test code = 3257) negative Negative - Negati ve POCT U COLOR (test code = 3266) . POCT U APPEAR (test code = 3267) . [facility] [id number] 12:56:00* Test Item Value Reference Range Interpretation Comme nts POCT PREG (test code = 1605) Positive On board controls acceptable with C Line (test code = 3574) Yes POCT PREG LOT # (test code = 3575) POCT PREG TEST DATE ( test code = 3576) [facility] URINALYSIS W/O SPECIFIC [id number] 12:56:00* Test Item Value Reference Range Interpretation Comme nts POCT PH U (test code = 3254) 5 mg/dl 5-8 POCT U LEUK EST (test code = 3263) Trace Negative - Negative POCT U NIT (test code = 3262) Neg Negative - Negati ve POCT U PROT (test code = 3259) 1+ Negative - Negat sydney POCT U GLU (test code = 3256) Neg Negative - Negati ve POCT U KETONE (test code = 3258) 3+ Negative - Neg ative POCT U BLD (test code = 3257) Trace Negative - Negati ve [facility]-PATHOLOGIST [id number] 16:54:28ANA - Pathologist InterpretationANA HEp-2 IIFA Pathologist Interpretation Report Patient Name: Tanika Lawrence ? : 2000 ??Antinuclear Antibody (JOSE EDUARDO) [...] systemic autoimmune rheumatic disease that is strongly asso ciated with a positive JOSE EDUARDO, such as systemic lupus erythematosus (JOSE EDUARDO positive in ~95-100%), systemic sclerosis (JOSE EDUARDO positive in ~60-80%), or the following disorders in which JOSE EDUARDO positivity is part of the diagnostic criteria: drug- induced lupus, autoimmune hepatitis, or mixed connective tissue disease. However, the JOSE EDUARDO may be negative in rare cases of systemic lupus erythematosus and systemic sclerosis. The JOSE EDUARDO may also be negative in ~20% of patients presenting with autoimmune hepatitis. Additionally, JSOE EDUARDO positivity is less sensitive in the diagnosis of Sjogren's syndrome (~40-70%) and dermat omyositis/polymyositis (~30-80%). The JOSE EDUARDO also has limited diagnostic utility in vasculitis, as theANA may be negative in this autoimmune condition. [...] tests as clinically indicated. References: - Cherie A, Terrance R, Derek J, Wero DH, Camille LANDERS. Guidelines for clinical use of the antinuclear antibody test and tests for specific autoantibodies to nuclear antigens. [employer] [employer]. Arch Pathol Lab Med.2000;124(1):71-81. doi:10.5858/6574-861-5859-GFCULASHELL- Anibal CL, Dominic D, Ev DN, et al. Diagnosis and Management of Autoimmune Hepatitis in Adults and Children: 2019 Practice Guidance and Guidelines From the [place] [employer] Liver Diseases. Hepatology. 2020;72(2):671-722. doi:10.1002/hep.12254- Paolo C, Sergey EC, Dotson M. Rational use of blood tests in the evaluation of rheumatic diseases. Mo Med. 2012;109(1):59-63. Jessie Carcamo MD ?05/27/2022 ?11:52 AM05/27/2022 11:54 AM [facility] Hospital[facility]NUCLEAR ANTIBODY [id number] 23:33:37* Test Item Value Reference Range Interpretation Comme nts JOSE EDUARDO (test code = 3145275579) Negative Negative MELVIN (test code = MELVIN) Negative: ?No Anti-Nuclear Antibodies detected by IFA. Positive: ?JOSE EDUARDO IFA screen performed with a 1:80 dilution in adults and a 1:40 dilution in pediatrics. ?A titer is performed and reported separately when the JOSE EDUARDO is "Positive" or when "Cytoplasmic staining is observed." Lab Interpretation (test code = 16363-1) Normal [facility]-PATEL(SM)2022-05-25 15:14:32* Test Item Value Reference Range Interpretation Comme nts Anti-Patel (test code = 9791983305) Negative Negative MELVIN (test code = MELVIN) Positive - Antibod y detected.Negative - No antibody detected. Lab Interpretation (test code = 60043-5) [facility]-[id number] 15:14:32* Test Item Value Reference Range Interpretation Comme nts Anti-Ribonucleoprotein (test code = 1801216865) Negative Negative MELVIN (test code = MELVIN) Positive - Antibod y detected.Negative - No antibody detected. Lab Interpretation (test code = 59840-7) [facility]-SSA(RO)2022-05-25 15:14:32* Test Item Value Reference Range Interpretation Comme nts ANTI-SSA(RO) (test code = 3871474242) Negative Negative MELVIN (test code = MELVIN) Positive - Antibod y detected.Negative - No antibody detected. Lab Interpretation (test code = 98214-1) [facility]-DOUBLE STRANDED [id number] 15:14:11* Test Item Value Reference Range Interpretation Comme nts ANTI-DSDNA (test code = 5834004240) See_Comment [Automated message] The system which generated this result transmitted reference range: 0.0 - 4.0 IU/mL. The reference range was not used to interpret this result as normal/abnormal. MELVIN (test code = MELVIN) Negative ? ?< or = 4 IU/mLPositive ? ? ?> or = 10 IU/mLIndetermin ate ?5-9 IU/mL Lab Interpretation (test code = 42891-0) [facility]-SSB(LA)2022-05-25 15:14:11* Test Item Value Reference Range Interpretation Comme nts Anti-SSB(LA) (test code = 5774631120) Negative Negative MELVIN (test code = MELVIN) Positive - Antibod y detected.Negative - No antibody detected. Lab Interpretation (test code = 71218-5) Normal [facility] HospitalC4 INMSQGUEZX5390-92-62 19:45:31* Test Item Value Reference Range Interpretation Comme nts C4 (test code = 7217982692) 39 mg/dL 20-59 Lab Interpretation (test cod e = 25269-5) Normal [facility] HospitalRHEUMATOID [id number] 19:45:31* Test Item Value Reference Range Interpretation Comme nts RF (test code = 2301637098) See_Comment [Automated Highlightera ge] The system which generated this result transmitted reference range: <20 IU/mL. The reference range was not used to interpret this result as normal/abnormal. Lab Interpretation (test code = 93844-6) Normal [facility]-REACTIVE [id number] 19:45:31* Test Item Value Reference Range Interpretation Comme nts CRP (test code = 5737212477) 0.4 mg/dL <=0.8 Lab Interpretation (test cod e = 31999-9) Normal [facility] HospitalC3 [id number] 19:45:30* Test Item Value Reference Range Interpretation Comme nts C3 (test code = 4110331689) 146 mg/dL 86-184 Lab Interpretation (test cod e = 83521-4) Normal [facility] HospitalHCV [id number] 18:58:53* Test Item Value Reference Range Interpretation Comme nts HCV Ab (test code = 82650-8) Negative HCV Semi-Quantitative (test code = 36717-6) 0.03 [facility] HospitalVITAMIN D, [id number] 18:27:04* Test Item Value Reference Range Interpretation Comme nts VIT D 25OH (test code = 19004-9) 14 ng/mL 25-80 L MELVIN (test code = MELVIN) Deficiency: <20 ng/mLInsufficiency: 20-24 ng/mLOptimal: 25-80 ng/mL Lab Interpretation (test code = 79595-6) Abnormal [facility] HospitalCBC with Ptdgcvnyuwrz9463-62-13 10:36:30* Test Item Value Reference Range Interpretation Comme nts WBC (test code = 6690-2) 10.67 See_Comment [Automated messa ge] The system which generated this result transmitted reference range: 4.30 - 11.10 10*3/?L. The reference range was not used to interpret this result as normal/abnormal. RBC (test code = 789-8) 3.72 See_Comment L [Automated messa ge] The system which generated this result transmitted reference range: 3.93 - 5.25 10*6/?L. The reference range was not used to interpret this result as normal/abnormal. HGB (test code = 718-7) 8.6 g/dL 11.6-15.0 L HCT (test code = 4544-3) 28.4 % 35.7-45.2 L MCV (test code = 787-2) 76.3 fL 80.6-95.5 L MCH (test code = 785-6) 23.1 pg 25.9-32.8 L MCHC (test code = 786-4) 30.3 g/dL 31.6-35.1 L RDW-SD (test code = 25444-3) 49.8 fL 39.0-49.9 RDW-CV (test code = 788-0) 18.2 % 12.0-15.5 H PLT (test code = 777-3) 200 See_Comment [Automated messa ge] The system which generated this result transmitted reference range: 166 - 358 10*3/?L. The reference range was not used to interpret this result as normal/abnormal. MPV (test code = 11893-4) 11.0 fL 9.5-12.9 NRBC/100 WBC (test code = 2406981541) 0.0 See_Comment [Automated Eqiancheng.com ssage] The system which generated this result transmitted reference range: 0.0 - 10.0 /100 WBCs. The reference range was not used to interpret this result as normal/abnormal. NRBC x10^3 (test code = 4831137620) See_Comment [Automated messa ge] The system which generated this result transmitted reference range: 10*3/?L. The reference range was not used to interpret this result as normal/abnormal. GRAN MAT (NEUT) % (test code = 770-8) 81.9 % IMM GRAN % (test code = 3362923727) 0.60 % LYMPH % (test code = 736-9) 11.7 % MONO % (test code = 5905-5) 4.8 % EOS % (test code = 713-8) 0.9 % BASO % (test code = 706-2) 0.1 % GRAN MAT x10^3(ANC) (test code = 6190629692) 8.74 10*3/uL 1.88-7.09 H IMM GRAN x10^3 (test code = 8257973296) 0.06 10*3/uL 0.00-0.06 LYMPH x10^3 (test code = 731-0) 1.25 10*3/uL 1.32-3.29 L MONO x10^3 (test code = 742-7) 0.51 10*3/uL 0.33-0.92 EOS x10^3 (test code = 711-2) 0.10 10*3/uL 0.03-0.39 BASO x10^3 (test code = 704-7) 0.01-0.07 Lab Interpretation (test code = 70887-4) Abnormal [facility] with Yaychtqqnjqs9342-35-17 10:36:30* Test Item Value Reference Range Interpretation Comme nts WBC (test code = 6690-2) 10.67 See_Comment [Automated messa ge] The system which generated this result transmitted reference range: 4.30 - 11.10 10*3/?L. The reference range was not used to interpret this result as normal/abnormal. RBC (test code = 789-8) 3.72 See_Comment L [Automated messa ge] The system which generated this result transmitted reference range: 3.93 - 5.25 10*6/?L. The reference range was not used to interpret this result as normal/abnormal. HGB (test code = 718-7) 8.6 g/dL 11.6-15.0 L HCT (test code = 4544-3) 28.4 % 35.7-45.2 L MCV (test code = 787-2) 76.3 fL 80.6-95.5 L MCH (test code = 785-6) 23.1 pg 25.9-32.8 L MCHC (test code = 786-4) 30.3 g/dL 31.6-35.1 L RDW-SD (test code = 96859-3) 49.8 fL 39.0-49.9 RDW-CV (test code = 788-0) 18.2 % 12.0-15.5 H PLT (test code = 777-3) 200 See_Comment [Automated Highlightera ge] The system which generated this result transmitted reference range: 166 - 358 10*3/?L. The reference range was not used to interpret this result as normal/abnormal. MPV (test code = 72309-9) 11.0 fL 9.5-12.9 NRBC/100 WBC (test code = 6203146344) 0.0 See_Comment [Automated Eqiancheng.com ssage] The system which generated this result transmitted reference range: 0.0 - 10.0 /100 WBCs. The reference range was not used to interpret this result as normal/abnormal. NRBC x10^3 (test code = 7217286657) See_Comment [Automated Highlightera ge] The system which generated this result transmitted reference range: 10*3/?L. The reference range was not used to interpret this result as normal/abnormal. GRAN MAT (NEUT) % (test code = 770-8) 81.9 % IMM GRAN % (test code = 5793163284) 0.60 % LYMPH % (test code = 736-9) 11.7 % MONO % (test code = 5905-5) 4.8 % EOS % (test code = 713-8) 0.9 % BASO % (test code = 706-2) 0.1 % GRAN MAT x10^3(ANC) (test code = 4755788790) 8.74 10*3/uL 1.88-7.09 H IMM GRAN x10^3 (test code = 5886876601) 0.06 10*3/uL 0.00-0.06 LYMPH x10^3 (test code = 731-0) 1.25 10*3/uL 1.32-3.29 L MONO x10^3 (test code = 742-7) 0.51 10*3/uL 0.33-0.92 EOS x10^3 (test code = 711-2) 0.10 10*3/uL 0.03-0.39 BASO x10^3 (test code = 704-7) 0.01-0.07 Lab Interpretation (test code = 54963-5) Abnormal [facility] (D) IMMUNE [id number] 12:57:08* Test Item Value Reference Range Interpretation Comme nts RHIG CANDIDATE? (test code = 5055) No- see comment Patient is not a candidate for RhIg- Patient is Rh Positive.Performed at [facility] Laboratory Services [facility] Blood [address] Free: [phone] No. [id number] [facility] () IMMUNE [id number] 12:57:08* Test Item Value Reference Range Interpretation Comme nts RHIG CANDIDATE? (test code = 5055) No- see comment Patient is not a candidate for RhIg- Patient is Rh Positive.Performed at [facility] Laboratory Services [facility] Blood [address] Free: [phone] No. [id number] [facility] HospitalVENOUS CORD [id number] 10:01:20* Test Item Value Reference Range Interpretation Comme nts VENOUS BASE EXCESS, CORD (test code = 6574952934) -5.6 mEq/L VENOUS PH, CORD (test code = 2199937067) 7.36 7.25-7.45 VENOUS PC02, CORD (test code = 1836311147) 34 See_Comment [Automated messa ge] The system which generated this result transmitted reference range: 27 - 49 mmHg. The reference range was not used to interpret this result as normal/abnormal. VENOUS PO2, CORD (test code = 4389426242) 31 See_Comment [Automated me ssage] The system which generated this result transmitted reference range: 17 - 41 mmHg. The reference range was not used to interpret this result as normal/abnormal. VENOUS BICARBONATE, CORD (test code = 0287917270) 19 See_Comment [Automated messa ge] The system which generated this result transmitted reference range: 12 - 29 mEq/L. The reference range was not used to interpret this result as normal/abnormal. [facility] HospitalVEN[facility] CORD [id number] 10:01:20* Test Item Value Reference Range Interpretation Comme nts VENOUS BASE EXCESS, CORD (test code = 8869957662) -5.6 mEq/L VENOUS PH, CORD (test code = 5281894111) 7.36 7.25-7.45 VENOUS PC02, CORD (test code = 2283673718) 34 See_Comment [Automated messa ge] The system which generated this result transmitted reference range: 27 - 49 mmHg. The reference range was not used to interpret this result as normal/abnormal. VENOUS PO2, CORD (test code = 7676003723) 31 See_Comment [Automated me ssage] The system which generated this result transmitted reference range: 17 - 41 mmHg. The reference range was not used to interpret this result as normal/abnormal. VENOUS BICARBONATE, CORD (test code = 7464288644) 19 See_Comment [Automated messa ge] The system which generated this result transmitted reference range: 12 - 29 mEq/L. The reference range was not used to interpret this result as normal/abnormal. [facility] HospitalARTERIAL CORD [id number] 09:58:24* Test Item Value Reference Range Interpretation Comme nts BASE EXCESS, CORD (test code = 7749342413) -5.4 mEq/L AC PH, CORD (BEAKER) (test code = 6769701737) 7.33 7.18-7.38 PC02, CORD (test code = 4151334015) 40 See_Comment [Automated messa ge] The system which generated this result transmitted reference range: 32 - 66 mmHg. The reference range was not used to interpret this result as normal/abnormal. PO2, CORD (test code = 2157100777) 20 See_Comment [Automated messa ge] The system which generated this result transmitted reference range: 10 - 30 mmHg. The reference range was not used to interpret this result as normal/abnormal. BICARBONATE, CORD (test code = 7403055207) 20 See_Comment [Automated messa ge] The system which generated this result transmitted reference range: 17 - 27 mEq/L. The reference range was not used to interpret this result as normal/abnormal. [facility] HospitalAR[facility]IAL CORD [id number] 09:58:24* Test Item Value Reference Range Interpretation Comme nts BASE EXCESS, CORD (test code = 1207831566) -5.4 mEq/L AC PH, CORD (BEAKER) (test code = 6879517164) 7.33 7.18-7.38 PC02, CORD (test code = 7467650597) 40 See_Comment [Automated messa ge] The system which generated this result transmitted reference range: 32 - 66 mmHg. The reference range was not used to interpret this result as normal/abnormal. PO2, CORD (test code = 2838634535) 20 See_Comment [Automated messa ge] The system which generated this result transmitted reference range: 10 - 30 mmHg. The reference range was not used to interpret this result as normal/abnormal. BICARBONATE, CORD (test code = 0444107000) 20 See_Comment [Automated messa ge] The system which generated this result transmitted reference range: 17 - 27 mEq/L. The reference range was not used to interpret this result as normal/abnormal. [facility] ONLY - SYPHILIS IGG/[id number] 16:21:06* Test Item Value Reference Range Interpretation Comme [facility] Syphilis IgG/IgM (test code = 37911-1) Non-reactive Non-reactive MELVIN (test code = MELVIN) Non-reactive - No serologic evidence of T. pallidum infection. Cannot exclude incubating or early syphilis. Submit a second specimen in 2-4 weeks if syphilis is clinically suspected. Equivocal - Further testing to follow. Reactive - Further testing to follow. Lab Interpretation (test code = 17912-3) Normal [facility] ONLY - SYPHILIS IGG/[id number] 16:21:06* Test Item Value Reference Range Interpretation Comme [facility] Syphilis IgG/IgM (test code = 05586-0) Non-reactive Non-reactive MELVIN (test code = MELVIN) Non-reactive - No serologic evidence of T. pallidum infection. Cannot exclude incubating or early syphilis. Submit a second specimen in 2-4 weeks if syphilis is clinically suspected. Equivocal - Further testing to follow. Reactive - Further testing to follow. Lab Interpretation (test code = 30796-2) Normal [facility] HospitalUric Acid Zepdq1093-66-32 06:06:11* Test Item Value Reference Range Interpretation Comme nts URIC ACID (test code = 7983302302) 3.6 mg/dL 2.9-6.0 Lab Interpretation (test cod e = 75849-2) Normal [facility] Xcpwmkrlul2781-13-05 06:06:11* Test Item Value Reference Range Interpretation Comme nts CREATININE (test code = 6723352560) 0.53 mg/dL 0.50-1.04 eGFR (test code = 7003011569) 144.2 mL/min/1.73m2 MELVIN (test code = MELVIN) Association of [...] tests). [facility] HospitalSGOT (Asparate Amino Transfer)2022-04-24 06:06:11* Test Item Value Reference Range Interpretation Comme nts AST(SGOT) (test code = 8894135808) 22 U/L 13-40 Lab Interpretation (test cod e = 97131-0) Normal [facility] HospitalAlanine Amino Transferase (SGPT)2022-04-24 06:06:11* Test Item Value Reference Range Interpretation Comme nts ALTv (test code = 1742-6) 19 U/L 5-35 Lab Interpretation (test cod e = 28024-5) Normal [facility] HospitalUric Acid Wjaeo7103-35-42 06:06:11* Test Item Value Reference Range Interpretation Comme nts URIC ACID (test code = 7588699045) 3.6 mg/dL 2.9-6.0 Lab Interpretation (test cod e = 30201-9) Normal [facility] HospitalSerum Vbulvxosqs4282-42-94 06:06:11* Test Item Value Reference Range Interpretation Comme nts CREATININE (test code = 8754304512) 0.53 mg/dL 0.50-1.04 eGFR (test code = 6197839734) 144.2 mL/min/1.73m2 MELVIN (test code = MELVIN) Association of [...] or urine or abnormalities in imaging tests). [facility] (Asparate Amino Transfer)2022-04-24 06:06:11* Test Item Value Reference Range Interpretation Comme nts AST(SGOT) (test code = 1632005021) 22 U/L 13-40 Lab Interpretation (test cod e = 50508-5) Normal [facility] HospitalAlanine Amino Transferase (SGPT)2022-04-24 06:06:11* Test Item Value Reference Range Interpretation Comme nts ALTv (test code = 1742-6) 19 U/L 5-35 Lab Interpretation (test cod e = 51055-1) Normal [facility] HospitalLactate Tndvhovbfcchz4181-33-70 06:05:30* Test Item Value Reference Range Interpretation Comme nts LDH (test code = 7890183238) 178 U/L 120-246 Lab Interpretation (test cod e = 20407-9) Normal [facility] HospitalLactate Pftlpjptviqde7314-46-05 06:05:30* Test Item Value Reference Range Interpretation Comme nts LDH (test code = 4833847274) 178 U/L 120-246 Lab Interpretation (test cod e = 06223-5) Normal [facility] HospitalHIV 1/2 AG-AB WITH [id number] 05:41:30* Test Item Value Reference Range Interpretation Comme nts HIV Semi-quantitative (test code = 47439-3) 0.08 Negative MELVIN (test code = MELVIN) Non-reactive for HIV-1 antigen and HIV-1/HIV-2 antibodies. ?No laboratory evidence of HIV infection. ?Repeat in 2-4 weeks if acute HIV infection is suspected. [facility] HospitalHIV 1/2 AG-AB WITH TABJMX1292-56-03 05:41:30* Test Item Value Reference Range Interpretation Comme nts HIV Semi-quantitative (test code = 57258-3) 0.08 Negative MELVIN (test code = MELVIN) Non-reactive for HIV-1 antigen and HIV-1/HIV-2 antibodies. ?No laboratory evidence of HIV infection. ?Repeat in 2-4 weeks if acute HIV infection is suspected. [facility] Vsyylkm4107-01-73 04:25:16 * Test Item Value Reference Range Interpretation Comme nts HBsAg Semi-Quantitative (pennie t code = 5195-3) 0.05 Negative [facility] Ahmcgme9562-07-12 04:25:16 * Test Item Value Reference Range Interpretation Comme nts HBsAg Semi-Quantitative (pennie t code = 5195-3) 0.05 Negative [facility] and Screen - ONCE [id number] 03:37:42 * Test Item Value Reference Range Interpretation Comme nts ABO & RH (test code = 20) O POSITIVE Performed at [facility] Laboratory [facility] Blood [address] Free: [phone] No. [id number] IAT (test code = 1185) Negative Performed at [facility] Laboratory [address] Free: [phone] No. [id number] [facility] and Screen - ONCE [id number] 03:37:42 * Test Item Value Reference Range Interpretation Comme nts ABO & RH (test code = 20) O POSITIVE Performed at [facility] Laboratory [address] Free: [phone] No. [id number] IAT (test code = 1185) Negative Performed at [facility] Laboratory [address] Free: [phone] No. [id number] [facility] HospitalCBC with Pdrflzbrxmon8030-54-54 03:28:48* Test Item Value Reference Range Interpretation Comme nts WBC (test code = 6690-2) 7.20 See_Comment [Automated messa ge] The system which generated this result transmitted reference range: 4.30 - 11.10 10*3/?L. The reference range was not used to interpret this result as normal/abnormal. RBC (test code = 789-8) 4.58 See_Comment [Automated messa ge] The system which generated this result transmitted reference range: 3.93 - 5.25 10*6/?L. The reference range was not used to interpret this result as normal/abnormal. HGB (test code = 718-7) 10.7 g/dL 11.6-15.0 L HCT (test code = 4544-3) 34.6 % 35.7-45.2 L MCV (test code = 787-2) 75.5 fL 80.6-95.5 L MCH (test code = 785-6) 23.4 pg 25.9-32.8 L MCHC (test code = 786-4) 30.9 g/dL 31.6-35.1 L RDW-SD (test code = 12557-7) 46.3 fL 39.0-49.9 RDW-CV (test code = 788-0) 18.0 % 12.0-15.5 H PLT (test code = 777-3) 237 See_Comment [Automated Highlightera ge] The system which generated this result transmitted reference range: 166 - 358 10*3/?L. The reference range was not used to interpret this result as normal/abnormal. MPV (test code = 66891-5) 12.1 fL 9.5-12.9 NRBC/100 WBC (test code = 6260320154) 0.0 See_Comment [Automated Eqiancheng.com ssage] The system which generated this result transmitted reference range: 0.0 - 10.0 /100 WBCs. The reference range was not used to interpret this result as normal/abnormal. NRBC x10^3 (test code = 2134083184) See_Comment [Automated Highlightera ge] The system which generated this result transmitted reference range: 10*3/?L. The reference range was not used to interpret this result as normal/abnormal. GRAN MAT (NEUT) % (test code = 770-8) 66.3 % IMM GRAN % (test code = 9348016491) 0.70 % LYMPH % (test code = 736-9) 22.1 % MONO % (test code = 5905-5) 8.1 % EOS % (test code = 713-8) 2.2 % BASO % (test code = 706-2) 0.6 % GRAN MAT x10^3(ANC) (test code = 4151612612) 4.78 10*3/uL 1.88-7.09 IMM GRAN x10^3 (test code = 2903113348) 0.05 10*3/uL 0.00-0.06 LYMPH x10^3 (test code = 731-0) 1.59 10*3/uL 1.32-3.29 MONO x10^3 (test code = 742-7) 0.58 10*3/uL 0.33-0.92 EOS x10^3 (test code = 711-2) 0.16 10*3/uL 0.03-0.39 BASO x10^3 (test code = 704-7) 0.04 10*3/uL 0.01-0.07 Lab Interpretation (test code = 49376-3) Abnormal [facility] with Frkvyrshdloq5628-68-08 03:28:48* Test Item Value Reference Range Interpretation Comme nts WBC (test code = 6690-2) 7.20 See_Comment [Automated Highlightera ge] The system which generated this result transmitted reference range: 4.30 - 11.10 10*3/?L. The reference range was not used to interpret this result as normal/abnormal. RBC (test code = 789-8) 4.58 See_Comment [Automated messa ge] The system which generated this result transmitted reference range: 3.93 - 5.25 10*6/?L. The reference range was not used to interpret this result as normal/abnormal. HGB (test code = 718-7) 10.7 g/dL 11.6-15.0 L HCT (test code = 4544-3) 34.6 % 35.7-45.2 L MCV (test code = 787-2) 75.5 fL 80.6-95.5 L MCH (test code = 785-6) 23.4 pg 25.9-32.8 L MCHC (test code = 786-4) 30.9 g/dL 31.6-35.1 L RDW-SD (test code = 65287-9) 46.3 fL 39.0-49.9 RDW-CV (test code = 788-0) 18.0 % 12.0-15.5 H PLT (test code = 777-3) 237 See_Comment [Automated messa ge] The system which generated this result transmitted reference range: 166 - 358 10*3/?L. The reference range was not used to interpret this result as normal/abnormal. MPV (test code = 27799-3) 12.1 fL 9.5-12.9 NRBC/100 WBC (test code = 4373696659) 0.0 See_Comment [Automated me ssage] The system which generated this result transmitted reference range: 0.0 - 10.0 /100 WBCs. The reference range was not used to interpret this result as normal/abnormal. NRBC x10^3 (test code = 9737827718) See_Comment [Automated messa ge] The system which generated this result transmitted reference range: 10*3/?L. The reference range was not used to interpret this result as normal/abnormal. GRAN MAT (NEUT) % (test code = 770-8) 66.3 % IMM GRAN % (test code = 6069488240) 0.70 % LYMPH % (test code = 736-9) 22.1 % MONO % (test code = 5905-5) 8.1 % EOS % (test code = 713-8) 2.2 % BASO % (test code = 706-2) 0.6 % GRAN MAT x10^3(ANC) (test code = 7689591671) 4.78 10*3/uL 1.88-7.09 IMM GRAN x10^3 (test code = 5499253873) 0.05 10*3/uL 0.00-0.06 LYMPH x10^3 (test code = 731-0) 1.59 10*3/uL 1.32-3.29 MONO x10^3 (test code = 742-7) 0.58 10*3/uL 0.33-0.92 EOS x10^3 (test code = 711-2) 0.16 10*3/uL 0.03-0.39 BASO x10^3 (test code = 704-7) 0.04 10*3/uL 0.01-0.07 Lab Interpretation (test code = 28099-5) Abnormal [facility] URINALYSIS W SPECIFIC [id number] 14:02:00* Test Item Value Reference Range Interpretation Comme nts POCT U SP GRAV (test code = 3255) . 1.005-1.025 POCT PH U (test code = 3254) . 5-8 POCT U LEUK EST (test code = 3263) . Negative - Negative POCT U NIT (test code = 3262) . Negative - Negati ve POCT U PROT (test code = 3259) trace Negative - Negat sydney POCT U GLU (test code = 3256) negative Negative - Negati ve POCT U KETONE (test code = 3258) . Negative - Neg ative POCT U UROBILI (test code = 3260) . 0.2-1 POCT U BILI (test code = 3261) . Negative - Negat sydney POCT U BLD (test code = 3257) . Negative - Negati ve POCT U COLOR (test code = 3266) POCT U APPEAR (test code = 3267) [facility] URINALYSIS W SPECIFIC [id number] 19:12:00* Test Item Value Reference Range Interpretation Comme nts POCT U SP GRAV (test code = 3255) . 1.005-1.025 POCT PH U (test code = 3254) . 5-8 POCT U LEUK EST (test code = 3263) . Negative - Negative POCT U NIT (test code = 3262) . Negative - Negati ve POCT U PROT (test code = 3259) trace Negative - Negat sydney POCT U GLU (test code = 3256) negative Negative - Negati ve POCT U KETONE (test code = 3258) . Negative - Neg ative POCT U UROBILI (test code = 3260) . 0.2-1 POCT U BILI (test code = 3261) . Negative - Negat sydney POCT U BLD (test code = 3257) . Negative - Negati ve POCT U COLOR (test code = 3266) . POCT U APPEAR (test code = 3267) . [facility] URINALYSIS W SPECIFIC [id number] 14:57:00* Test Item Value Reference Range Interpretation Comme nts POCT U SP GRAV (test code = 3255) . 1.005-1.025 POCT PH U (test code = 3254) . 5-8 POCT U LEUK EST (test code = 3263) . Negative - N egative POCT U NIT (test code = 3262) . Negative - Negati ve POCT U PROT (test code = 3259) 1+ Negative - Negat sydney POCT U GLU (test code = 3256) neg Negative - Negati ve POCT U KETONE (test code = 3258) . Negative - Neg ative POCT U UROBILI (test code = 3260) . 0.2-1 POCT U BILI (test code = 3261) . Negative - Negat sydney POCT U BLD (test code = 3257) . Negative - Negati ve POCT U COLOR (test code = 3266) . POCT U APPEAR (test code = 3267) . [facility] URINALYSIS W SPECIFIC [id number] 15:24:00* Test Item Value Reference Range Interpretation Comme nts POCT U SP GRAV (test code = 3255) . 1.005-1.025 POCT PH U (test code = 3254) . 5-8 POCT U LEUK EST (test code = 3263) . Negative - Negative POCT U NIT (test code = 3262) . Negative - Negati ve POCT U PROT (test code = 3259) trace Negative - Negat sydney POCT U GLU (test code = 3256) negative Negative - Negati ve POCT U KETONE (test code = 3258) . Negative - Neg ative POCT U UROBILI (test code = 3260) . 0.2-1 POCT U BILI (test code = 3261) . Negative - Negat sydney POCT U BLD (test code = 3257) . Negative - Negati ve POCT U COLOR (test code = 3266) . POCT U APPEAR (test code = 3267) . [facility] URINALYSIS W SPECIFIC [id number] 15:24:00* Test Item Value Reference Range Interpretation Comme nts POCT U SP GRAV (test code = 3255) . 1.005-1.025 POCT PH U (test code = 3254) . 5-8 POCT U LEUK EST (test code = 3263) . Negative - Negative POCT U NIT (test code = 3262) . Negative - Negati ve POCT U PROT (test code = 3259) trace Negative - Negat sydney POCT U GLU (test code = 3256) negative Negative - Negati ve POCT U KETONE (test code = 3258) . Negative - Neg ative POCT U UROBILI (test code = 3260) . 0.2-1 POCT U BILI (test code = 3261) . Negative - Negat sydney POCT U BLD (test code = 3257) . Negative - Negati ve POCT U COLOR (test code = 3266) . POCT U APPEAR (test code = 3267) . [facility] URINALYSIS W SPECIFIC [id number] 15:24:00* Test Item Value Reference Range Interpretation Comme nts POCT U SP GRAV (test code = 3255) . 1.005-1.025 POCT PH U (test code = 3254) . 5-8 POCT U LEUK EST (test code = 3263) . Negative - Negative POCT U NIT (test code = 3262) . Negative - Negati ve POCT U PROT (test code = 3259) trace Negative - Negat sydney POCT U GLU (test code = 3256) negative Negative - Negati ve POCT U KETONE (test code = 3258) . Negative - Neg ative POCT U UROBILI (test code = 3260) . 0.2-1 POCT U BILI (test code = 3261) . Negative - Negat sydney POCT U BLD (test code = 3257) . Negative - Negati ve POCT U COLOR (test code = 3266) . POCT U APPEAR (test code = 3267) . [facility] URINALYSIS W SPECIFIC [id number] 15:24:00* Test Item Value Reference Range Interpretation Comme nts POCT U SP GRAV (test code = 3255) . 1.005-1.025 POCT PH U (test code = 3254) . 5-8 POCT U LEUK EST (test code = 3263) . Negative - Negative POCT U NIT (test code = 3262) . Negative - Negati ve POCT U PROT (test code = 3259) trace Negative - Negat sydney POCT U GLU (test code = 3256) negative Negative - Negati ve POCT U KETONE (test code = 3258) . Negative - Neg ative POCT U UROBILI (test code = 3260) . 0.2-1 POCT U BILI (test code = 3261) . Negative - Negat sydney POCT U BLD (test code = 3257) . Negative - Negati ve POCT U COLOR (test code = 3266) . POCT U APPEAR (test code = 3267) . [facility] [id number] 19:23:00* Test Item Value Reference Range Interpretation Comme nts POCT U SP GRAV (test code = 3255) . 1.005-1.025 POCT PH U (test code = 3254) 0.6 mg/dl 5-8 A POCT U LEUK EST (test code = 3263) 2+ Negative - Negative POCT U NIT (test code = 3262) Neg Negative - Negati ve POCT U PROT (test code = 3259) Trace Negative - Negat sydney POCT U GLU (test code = 3256) Neg Negative - Negati ve POCT U KETONE (test code = 3258) None Negative - Negative POCT U UROBILI (test code = 3260) . 0.2-1 POCT U BILI (test code = 3261) . Negative - Negat sydney POCT U BLD (test code = 3257) Trace Negative - Negati ve POCT U COLOR (test code = 3266) . POCT U APPEAR (test code = 3267) Lab Interpretation (test cod e = 55929-9) Abnormal [facility] ONLY - SYPHILIS [id number] 19:05:10* Test Item Value Reference Range Interpretation Comme [facility] Syphilis IgG/IgM (test code = 00749-6) Non-reactive Non-reactive MELVIN (test code = MELVIN) Non-reactive - No serologic evidence of T. pallidum infection. Cannot exclude incubating or early syphilis. Submit a second specimen in 2-4 weeks if syphilis is clinically suspected. Equivocal - Further testing to follow. Reactive - Further testing to follow. Lab Interpretation (test code = 50535-5) Normal [facility] 1/2 AG-AB WITH [id number] 08:36:57* Test Item Value Reference Range Interpretation Comme [facility] HIV Semi-quantitative (test code = 23074-2) Negative Negative MELVIN (test code = MELVIN) Non-reactive for HIV-1 antigen and HIV-1/HIV-2 antibodies. ?No laboratory evidence of HIV infection. ?Repeat in 2-4 weeks if acute HIV infection is suspected. [facility] HR GLUCOSE TOLERANCE [id number] 06:22:04 * Test Item Value Reference Range Interpretation Comme nts GLUC 3 HR (test code = 2027054784) 128 mg/dL 70-110 H Lab Interpretation (test cod e = 83004-8) Abnormal [facility] HR GLUCOSE TOLERANCE [id number] 06:20:02 * Test Item Value Reference Range Interpretation Comme nts GLUC 1 HR (test code = 8140337886) 129 mg/dL 120-170 Lab Interpretation (test cod e = 98724-0) Normal [facility] HR GLUCOSE TOLERANCE [id number] 06:20:02 * Test Item Value Reference Range Interpretation Comme nts GLUC 2 HR (test code = 8214489052) 133 mg/dL 70-120 H Lab Interpretation (test cod e = 80188-7) [facility] [id number] 06:19:01* Test Item Value Reference Range Interpretation Comme nts GLU FASTNG (test code = 6408750260) 79 mg/dL 70-110 Lab Interpretation (test cod e = 78827-4) [facility] [id number] 14:29:00* Test Item Value Reference Range Interpretation Comme nts POCT U SP GRAV (test code = 3255) . 1.005-1.025 POCT PH U (test code = 3254) . 5-8 POCT U LEUK EST (test code = 3263) . Negative - N egative POCT U NIT (test code = 3262) . Negative - Negati ve POCT U PROT (test code = 3259) Neg Negative - Negat sydney POCT U GLU (test code = 3256) Neg Negative - Negati ve POCT U KETONE (test code = 3258) . Negative - Neg ative POCT U UROBILI (test code = 3260) . 0.2-1 POCT U BILI (test code = 3261) . Negative - Negat sydney POCT U BLD (test code = 3257) . Negative - Negati ve POCT U COLOR (test code = 3266) .. POCT U APPEAR (test code = 3267) . [facility] [id number] 20:27:00* Test Item Value Reference Range Interpretation Comme nts POCT U SP GRAV (test code = 3255) . 1.005-1.025 POCT PH U (test code = 3254) . 5-8 POCT U LEUK EST (test code = 3263) . Negative - Negative POCT U NIT (test code = 3262) . Negative - Negati ve POCT U PROT (test code = 3259) trace Negative - Negat sydney POCT U GLU (test code = 3256) negative Negative - Negati ve POCT U KETONE (test code = 3258) . Negative - Neg ative POCT U UROBILI (test code = 3260) . 0.2-1 POCT U BILI (test code = 3261) . Negative - Negat sydney POCT U BLD (test code = 3257) . Negative - Negati ve POCT U COLOR (test code = 3266) POCT U APPEAR (test code = 3267) [facility]. METABOLIC PANEL (84273)2022-02-06 02:30:30* Test Item Value Reference Range Interpretation Comme nts NA (test code = 8300635505) 136 mmol/L 135-145 K (test code = 1377426940) 3.4 mmol/L 3.5-5.0 L CL (test code = 9339445148) 107 mmol/L 98-108 CO2 TOTAL (test code = 9239723768) 23 mmol/L 23-31 AGAP (test code = 1469119146) 2-16 BUN (test code = 3629861299) 5 mg/dL 7-23 L GLUCOSE (test code = 9268611339) 61 mg/dL 70-110 L CREATININE (test code = 7792673446) 0.50 mg/dL 0.50-1.04 TOTAL BILI (test code = 1201476520) 0.4 mg/dL 0.1-1.1 CALCIUM (test code = 3856446303) 8.8 mg/dL 8.6-10.6 T PROTEIN (test code = 8849441758) 6.4 g/dL 6.3-8.2 ALBUMIN (test code = 2787947815) 3.5 g/dL 3.5-5.0 ALK PHOS (test code = 4985929838) 106 U/L 34-122 ALTv (test code = 1742-6) 29 U/L 5-35 AST(SGOT) (test code = 4398875099) 31 U/L 13-40 eGFR (test code = 7463785589) mL/min/1.73m2 MELVIN (test code = MELVIN) Association of [...] or abnormalities in imaging tests). Lab Interpretation (test code = 00104-1) [facility] 02:18:17* Test Item Value Reference Range Interpretation Comme nts LIPASE (test code = 2473031279) 60 U/L 0-220 Lab Interpretation (test cod e = 23788-9) Normal [facility] 02:17:16* Test Item Value Reference Range Interpretation Comme nts SHAYNA (test code = 7742165507) 74 U/L 35-110 Lab Interpretation (test cod e = 71876-2) Normal [facility] WITH [id number] 01:45:14* Test Item Value Reference Range Interpretation Comme nts WBC (test code = 6690-2) See_Comment [Automated messa ge] The system which generated this result transmitted reference range: 4.30 - 11.10 10*3/?L. The reference range was not used to interpret this result as normal/abnormal. RBC (test code = 789-8) See_Comment [Automated messa ge] The system which generated this result transmitted reference range: 3.93 - 5.25 10*6/?L. The reference range was not used to interpret this result as normal/abnormal. HGB (test code = 718-7) 10.3 g/dL 11.6-15.0 L HCT (test code = 4544-3) 31.2 % 35.7-45.2 L MCV (test code = 787-2) 79.2 fL 80.6-95.5 L MCH (test code = 785-6) 26.1 pg 25.9-32.8 MCHC (test code = 786-4) 33.0 g/dL 31.6-35.1 RDW-SD (test code = 01638-6) 34.9 fL 39.0-49.9 L RDW-CV (test code = 788-0) 12.2 % 12.0-15.5 PLT (test code = 777-3) See_Comment [Automated messa ge] The system which generated this result transmitted reference range: 166 - 358 10*3/?L. The reference range was not used to interpret this result as normal/abnormal. MPV (test code = 69973-4) 10.6 fL 9.5-12.9 NRBC/100 WBC (test code = 0217237511) See_Comment [Automated me ssage] The system which generated this result transmitted reference range: 0.0 - 10.0 /100 WBCs. The reference range was not used to interpret this result as normal/abnormal. NRBC x10^3 (test code = 4659178905) See_Comment [Automated messa ge] The system which generated this result transmitted reference range: 10*3/?L. The reference range was not used to interpret this result as normal/abnormal. GRAN MAT (NEUT) % (test code = 770-8) 59.2 % IMM GRAN % (test code = 7373569588) 1.10 % LYMPH % (test code = 736-9) 27.4 % MONO % (test code = 5905-5) 8.2 % EOS % (test code = 713-8) 3.5 % BASO % (test code = 706-2) 0.6 % GRAN MAT x10^3(ANC) (test code = 3185072139) 3.75 10*3/uL 1.88-7.09 IMM GRAN x10^3 (test code = 3811325177) 0.07 10*3/uL 0.00-0.06 H LYMPH x10^3 (test code = 731-0) 1.74 10*3/uL 1.32-3.29 MONO x10^3 (test code = 742-7) 0.52 10*3/uL 0.33-0.92 EOS x10^3 (test code = 711-2) 0.22 10*3/uL 0.03-0.39 BASO x10^3 (test code = 704-7) 0.04 10*3/uL 0.01-0.07 Lab Interpretation (test code = 77121-2) [facility] [id number] 06:43:02* Test Item Value Reference Range Interpretation Comme nts GLUC 1 HR (test code = 4090600090) 156 mg/dL 120-170 Lab Interpretation (test cod e = 25750-7) [facility] with [id number] 06:16:22* Test Item Value Reference Range Interpretation Comme nts WBC (test code = 6690-2) See_Comment [Automated messa ge] The system which generated this result transmitted reference range: 4.30 - 11.10 10*3/?L. The reference range was not used to interpret this result as normal/abnormal. RBC (test code = 789-8) See_Comment [Automated messa ge] The system which generated this result transmitted reference range: 3.93 - 5.25 10*6/?L. The reference range was not used to interpret this result as normal/abnormal. HGB (test code = 718-7) 10.9 g/dL 11.6-15.0 L HCT (test code = 4544-3) 34.8 % 35.7-45.2 L MCV (test code = 787-2) 83.5 fL 80.6-95.5 MCH (test code = 785-6) 26.1 pg 25.9-32.8 MCHC (test code = 786-4) 31.3 g/dL 31.6-35.1 L RDW-SD (test code = 19204-1) 36.9 fL 39.0-49.9 L RDW-CV (test code = 788-0) 12.1 % 12.0-15.5 PLT (test code = 777-3) See_Comment [Automated Highlightera ge] The system which generated this result transmitted reference range: 166 - 358 10*3/?L. The reference range was not used to interpret this result as normal/abnormal. MPV (test code = 72384-5) 11.3 fL 9.5-12.9 NRBC/100 WBC (test code = 5183854764) See_Comment [Automated Eqiancheng.com ssage] The system which generated this result transmitted reference range: 0.0 - 10.0 /100 WBCs. The reference range was not used to interpret this result as normal/abnormal. NRBC x10^3 (test code = 4496833573) See_Comment [Automated Highlightera ge] The system which generated this result transmitted reference range: 10*3/?L. The reference range was not used to interpret this result as normal/abnormal. GRAN MAT (NEUT) % (test code = 770-8) 67.0 % IMM GRAN % (test code = 7776946663) 1.30 % LYMPH % (test code = 736-9) 20.3 % MONO % (test code = 5905-5) 5.8 % EOS % (test code = 713-8) 4.9 % BASO % (test code = 706-2) 0.7 % GRAN MAT x10^3(ANC) (test code = 1175601258) 4.48 10*3/uL 1.88-7.09 IMM GRAN x10^3 (test code = 2383806039) 0.09 10*3/uL 0.00-0.06 H LYMPH x10^3 (test code = 731-0) 1.36 10*3/uL 1.32-3.29 MONO x10^3 (test code = 742-7) 0.39 10*3/uL 0.33-0.92 EOS x10^3 (test code = 711-2) 0.33 10*3/uL 0.03-0.39 BASO x10^3 (test code = 704-7) 0.05 10*3/uL 0.01-0.07 Lab Interpretation (test code = 02752-2) Abnormal [facility] URINALYSIS W SPECIFIC [id number] 15:44:00* Test Item Value Reference Range Interpretation Comme nts POCT U SP GRAV (test code = 3255) . 1.005-1.025 POCT PH U (test code = 3254) . 5-8 POCT U LEUK EST (test code = 3263) . Negative - N egative POCT U NIT (test code = 3262) . Negative - Negati ve POCT U PROT (test code = 3259) Trace Negative - Negat sydney POCT U GLU (test code = 3256) Neg Negative - Negati ve POCT U KETONE (test code = 3258) . Negative - Neg ative POCT U UROBILI (test code = 3260) . 0.2-1 POCT U BILI (test code = 3261) . Negative - Negat sydney POCT U BLD (test code = 3257) . Negative - Negati ve POCT U COLOR (test code = 3266) POCT U APPEAR (test code = 3267) [facility] URINALYSIS W SPECIFIC [id number] 15:44:00* Test Item Value Reference Range Interpretation Comme nts POCT U SP GRAV (test code = 3255) . 1.005-1.025 POCT PH U (test code = 3254) . 5-8 POCT U LEUK EST (test code = 3263) . Negative - N egative POCT U NIT (test code = 3262) . Negative - Negati ve POCT U PROT (test code = 3259) Trace Negative - Negat sydney POCT U GLU (test code = 3256) Neg Negative - Negati ve POCT U KETONE (test code = 3258) . Negative - Neg ative POCT U UROBILI (test code = 3260) . 0.2-1 POCT U BILI (test code = 3261) . Negative - Negat sydney POCT U BLD (test code = 3257) . Negative - Negati ve POCT U COLOR (test code = 3266) POCT U APPEAR (test code = 3267) [facility] URINALYSIS W SPECIFIC [id number] 15:44:00* Test Item Value Reference Range Interpretation Comme nts POCT U SP GRAV (test code = 3255) . 1.005-1.025 POCT PH U (test code = 3254) . 5-8 POCT U LEUK EST (test code = 3263) . Negative - N egative POCT U NIT (test code = 3262) . Negative - Negati ve POCT U PROT (test code = 3259) Trace Negative - Negat sydney POCT U GLU (test code = 3256) Neg Negative - Negati ve POCT U KETONE (test code = 3258) . Negative - Neg ative POCT U UROBILI (test code = 3260) . 0.2-1 POCT U BILI (test code = 3261) . Negative - Negat sydney POCT U BLD (test code = 3257) . Negative - Negati ve POCT U COLOR (test code = 3266) POCT U APPEAR (test code = 3267) [facility] URINALYSIS W SPECIFIC [id number] 17:14:00* Test Item Value Reference Range Interpretation Comme nts POCT U SP GRAV (test code = 3255) . 1.005-1.025 POCT PH U (test code = 3254) . 5-8 POCT U LEUK EST (test code = 3263) . Negative - Negative POCT U NIT (test code = 3262) . Negative - Negati ve POCT U PROT (test code = 3259) trace Negative - Negat sydney POCT U GLU (test code = 3256) negative Negative - Negati ve POCT U KETONE (test code = 3258) . Negative - Neg ative POCT U UROBILI (test code = 3260) . 0.2-1 POCT U BILI (test code = 3261) . Negative - Negat syd[place] POCT U BLD (test code = 3257) . Negative - Negati ve POCT U COLOR (test code = 3266) . POCT U APPEAR (test code = 3267) . [facility] URINALYSIS W SPECIFIC [id number] 16:23:00* Test Item Value Reference Range Interpretation Comme nts POCT U SP GRAV (test code = 3255) . 1.005-1.025 POCT PH U (test code = 3254) . 5-8 POCT U LEUK EST (test code = 3263) . Negative - N egative POCT U NIT (test code = 3262) . Negative - Negati ve POCT U PROT (test code = 3259) Trace Negative - Negat sydney POCT U GLU (test code = 3256) Neg Negative - Negati ve POCT U KETONE (test code = 3258) . Negative - Neg ative POCT U UROBILI (test code = 3260) . 0.2-1 POCT U BILI (test code = 3261) . Negative - Negat sydney POCT U BLD (test code = 3257) . Negative - Negati ve POCT U COLOR (test code = 3266) POCT U APPEAR (test code = 3267) [facility] URINALYSIS W SPECIFIC [id number] 18:17:00* Test Item Value Reference Range Interpretation Comme nts POCT U SP GRAV (test code = 3255) . 1.005-1.025 POCT PH U (test code = 3254) . 5-8 POCT U LEUK EST (test code = 3263) . Negative - N egative POCT U NIT (test code = 3262) . Negative - Negati ve POCT U PROT (test code = 3259) Trace Negative - Negat sydney POCT U GLU (test code = 3256) Neg Negative - Negati ve POCT U KETONE (test code = 3258) . Negative - Neg ative POCT U UROBILI (test code = 3260) . 0.2-1 POCT U BILI (test code = 3261) . Negative - Negat sydney POCT U BLD (test code = 3257) . Negative - Negati ve POCT U COLOR (test code = 3266) . POCT U APPEAR (test code = 3267) [facility] [id number] 21:13:00* Test Item Value Reference Range Interpretation Comme nts POCT U SP GRAV (test code = 3255) . 1.005-1.025 POCT PH U (test code = 3254) . 5-8 POCT U LEUK EST (test code = 3263) . Negative - N egative POCT U NIT (test code = 3262) . Negative - Negati ve POCT U PROT (test code = 3259) trace Negative - Negat sydney POCT U GLU (test code = 3256) neg Negative - Negati ve POCT U KETONE (test code = 3258) . Negative - Neg ative POCT U UROBILI (test code = 3260) . 0.2-1 POCT U BILI (test code = 3261) . Negative - Negat sydney POCT U BLD (test code = 3257) . Negative - Negati ve POCT U COLOR (test code = 3266) . POCT U APPEAR (test code = 3267) . [facility] [id number] 19:38:00* Test Item Value Reference Range Interpretation Comme [facility] HCG POC (test code = HCGPOC) <5.0 IU/L 0-4.9 N Results of 5.0-25.0 IU/L are indeterminate and do not ruleout . Because HCG values double approximately every48 hours in a normal , patients with low levels ofHCG should be resampled and retested after 48 hours toconfirm . - XR CHEST 1 [id number] 18:29:00FAX: Silvana Anthony [phone] [place]: St: PRE Name: TANIKA LARWENCE [facility] : 2000 Age/S: 17/F [address] Unit #: [id number] Loc: [place] [address] Phys: Silvana Anthony [employer] Acct: [id number] Dis Date: Status: PRE ER PHONE #: [phone] Exam Date: 06/13/20181817 FAX #: [phone] Reason: sob EXAMS: CPT CODE: [id number] XR CHEST 1 V 02568 Location code: B2 Chest 1 view Indication: sob. Comparison: None Findings: The heart and mediastinum are not remarkable. Costophrenicangles are clear. Lungs are clear. Bone is unremarkable for age. Impression: 1. No radiographic evidence of acute cardiopulmonary disease. at 1829 Reported and signed by: Daljit Parada MD CC: Silvana Anthony NP Technologist: MITZI PERRY Date/Time/By: 06/13/2018 (1828) : By: [email or web address] PAGE 1 Signed Report FAX: Silvana Anthony [phone] [place]: St: PRE Name: TANIKA LAWRENCE : 2000 Age/S: 17/F [address] Unit #: [id number] Loc: [place] [address] Phys: Silvana Anthony NP Acct:[id number] Dis Date: Status: PRE ER PHONE #: [phone] Exam Date: 06/13/2018 1818 FAX #: [phone] Reason: sob EXAMS: CPT CODE: [id number] XR CHEST 1 V [id number] (Continued) Orig Print D/T: S: 06/13/2018 (1832) PAGE 2 Signed Report- XR ANKLE 3 + V [id number] 17:13:00 [place]: St: REG -- Name: [place] : 2000 Age/S: 17/F [address] Unit #: [id number] Loc: [place] [address] Phys: Juan David Jalloh Acct: [id number] Dis Date: Status: REG ER PHONE #: [phone] Exam Date: 05/15/2018 1648 FAX #: [phone] Reason: rolled ankle, pain, lateral aspect EXAMS: CPT CODE: [id number] XR ANKLE 3 + V RT [address]2629 CLINICAL INFORMATION: Injury accident. Rolled ankle. Pain.. [...] CC: Technologist: ANGELICA CABRAL Trnscrd Date/Time/By: 05/15/2018 (3711) : By:ShellyAGV PAGE 1 Signed Report [place]: St: REG Name: TANIKA LAWRENCE [facility] : 2000 Age/S: 17/F [address] Unit #: [id number] Loc: [place] [address] Phys: Juan David Jalloh Acct: [id number] Dis Date: Status: REG ER PHONE #: [phone] Exam Date: 05/15/2018 1648 FAX #: [phone] Reason: rolled ankle, pain, lateral aspect EXAMS: CPT CODE: [id number] XR ANKLE 3 + V RT 49432 (Continued) Orig Print D/T: S: 05/15/2018 (9057) PAGE 2 Signed Report Notes Date/Time Note Provider Source 2023-03-30 00:19:50 YLumACJt+glJe8evbcvLW7rMvd03NVZxcLGdPlHK 4 FbF0LtgreAZa38wP/ByYNQK4622-14-22A84:19:5 0 Pt arrives ambulatory to ED reporting that she is 34 weeks 4 days and her mucous plug came out starting yesterday.She is a pt of Dr Hart'fA0F6Ams date 4Denies pain or regular contractionReport called to L&[place] [address]-1Onizlwpel department Triage qgyiIP1491-81-73D75:27:48[facility] Triage noteTXT1.2.840.242164.1.13.104.2.7.2.7278 79|[id number] for patient cbgm39375-5Rwmqhahhi department NoteLNNARRATIVEFormatted C-CDA narrative [id number] L Williams RN[address] PuawJwxqnbdnzVwaqlgtkbZOFC8968111582BNUVM AVAVDMXIVXHWBEWRB3167-84-65I08:27:481.2.8 40.260803.1.72.3.15|1.2.840.458873.1.13.1 04.2.7.2.727879_[id number] Latrice Galloway RN [facility] 2023-03-29 22:41:00 emgT1FmKVGUGgU9UFqxbW6rCHf8/nonoa5Kwtrw9 2 b/WcxBth+hb9Ce6ME6LzbTl2069-55-15M12:41:0 0 Regardinw 4d , lost mucus plug. callback # [phone]----- Message from Palmer Courtney sent at 03/29/2023 10:41 PM ROD STRAIGHTENER -----Tanika Lawrence is a 22 year old pghaac55N 4D patient states she lost her mucus plug todayCallback # [phone] signed by Emelia Odonnell RN at 03/29/2023 10:41 PM RHH57341-1Hthzjvqeq encounter TycfPG3427-94-80K82:41:17Telephone encounter NoteTXT1.2.840.995665.1.13.104.2.7.2.7278 79|[id number] for patient cwef65613-2JayyTTOOZQOXGNNCfxswixhp C-CDA narrative [id number] A Esber RN[address] FeuaLluppbqzhObwsfuihmWOTI6537561345WDBQB HMXEAFXQZPURRWUZJ5952-37-01V38:41:171.2.8 40.414575.1.72.3.15|1.2.840.708301.1.13.1 04.2.7.2.727879_[id number] Emelia Odonnell RN [facility] 2023-03-29 22:41:00 d2iNMB6cpqdvDIH8AiaHGmNB9WRa4iK+vjq4MgRS 9 qAlYQ/4jNH62PtGIKVjeo/Y2433-82-67K28:41:0 0 Triage AssessmentLast Clinic Visit: 03/25/2023-Routine visitPrimary Symptom: Lost mucous plugOnset / Duration: Began yesterdayLocation / Description: VaginalPain / Severity: 6/10 on and offAssociated Symptoms: Having contraction that are not continuous. Patient states that the contractions are just at random times.Fever / Method: DeniesHydration: Drinking 8-20mL bottles of water, urinating normally.Treatment so far: NoneEffect on ADL's: SomeGestational Weeks: 34.4 wksRupture Membranes: DeniesBleeding / Spotting / Pads per hour: DeniesFetal Movement: Good movement feltPara / : EDC: 04/29/2023re-existing condition / Immunocompromised: Sugar intolerance, iron insufficient, autoimmune, asthmaReason for Disposition[1] 24-36 weeks () AND [2] pinkish or brownish mucous dischargeProtocols used: - Vaginal Ydginrsoi-WYHKB-MSVnrmncf calls stating that she has lost her mucous plug. RN reviews - Vaginal Discharge-Adult Protocol and advises patient go to L&D for further evaluation. Patient states that she is due to deliver at [facility] and will have another adult drive her to L&D in [place]. [address]-4Vpgzcnfpy encounter XnlcKM9956-03-03B64:54:26Telephone encounter NoteTXT1.2.840.084460.1.13.104.2.7.2.7278 79|[id number] for patient ocgw10056-1NejiHWACIFRISAJHqpgagbvw C-CDA narrative [id number] RVHQTXILZJTJQYIOV5834-46-94T92:54:261.2.8 40.112058.1.72.3.15|1.2.840.544032.1.13.1 ..7.2.727879_[id number] [facility] 2023-03-27 09:57:01 mACDpLQsFTbY9TGGhnxPZI2iKycRcbkg7hQn2aDi 6 LYOS6bmJ5uooh+hJeYeJROT2965-44-15E60:57:0 1 Patient informed of recommendations, verbalized understanding. 53062-8Ymdwxkdjb encounter SftqIO6741-58-50I27:57:20Telephone encounter NoteTXT1.2.840.567883.1.13.104.2.7.2.7278 79|[id number] for patient csbp68037-1HwuzJABXANFGLVNBcaeirstc C-CDA narrative [id number] TIFUYUHKOUTDWBWGG3607-77-30K31:57:201.2.8 40.313793.1.72.3.15|1.2.840.946323.1.13.1 .2.7.2.727879_[id number] [facility] 2023-03-27 07:51:53 bGTZlkEtlajgRtgG82No8egYsfJcuzSqxcUVJSXJ s OZz9qPrG+JBuanjr6DIF7O/5828-48-83Q69:51:5 3 Attempted to call patient, no answer, [place]. [address]8559-3Fnrulhmoo encounter EqjlZI9638-04-96R19:52:05Telephone encounter NoteTXT1.2.840.987124.1.13.104.2.7.2.7278 79|[id number] for patient mexb74992-0HumzMFKQAQXKWTLQwvgqyldf C-CDA narrative [place] [id number] YEJEIQACLCZCSOTOY5989-13-05J55:52:051.2.8 40.380740.1.72.3.15|1.2.840.783248.1.13.1 04.2.7.2.727879_[id number] [facility] 2023-03-26 16:48:52 KOFabXaoZYq4cW5mi5FkYvr4zhhulNpi6+BuF1L4 P aESZ7kD+CRFYNdWCQHCflUk9277-62-49U90:48:5 2 She should wait until after she has baby. 48383-8Drjbzldsb encounter IqmtWD4678-84-47Y07:49:06Telephone encounter NoteTXT1.2.840.008916.1.13.104.2.7.2.7278 79|[id number] for patient akkk48346-7YgnkROPBFHIAIZVBxhuyaqlr C-CDA narrative [id number] GQDEEWCBPYHJVMSSV5952-86-49Q43:49:061.2.8 40.501764.1.72.3.15|1.2.840.709387.1.13.1 04.2.7.2.727879_[id number] [facility] 2023-03-26 16:09:43 biMJtFuIa7wH7QGBhg6+vh35OtConYejT7WeF0gK Z oGksSwRQQRYoG3NIKBCHMGN2044-74-34F76:09:4 3 Tanika Lawrence is a 22 year old female is requesting a callback. Patient asking if ok to get her teeth whitened. Please call. Thank you. 10453-0Aadeytamn encounter IdhvHE0537-70-81H50:10:38Telephone encounter NoteTXT1.2.840.811176.1.13.104.2.7.2.7278 79|[id number] for patient ghzf03531-7QaguTQACRLYAWUTDicxhttvl C-CDA narrative rphm982267824Lneflt [place] [address] ZbvzZnialxvjzXytvquoglFFIR3792321990PSRUF DWMWZNCBSYPBZFPMT3792-12-59O63:10:381.2.8 40.495369.1.72.3.15|1.2.840.918661.1.13.1 04.2.7.2.727879_[id number] Isatu Noe [facility] 2023-03-16 09:25:51 +tFT8afTeYg4ZAIEeklWpuHTrHHbYbOt4bin4+Lr X kU5xhnjC/nlEA4X3K7OOpVm5189-55-34X47:25:5 1 Informed patient of recommendations, pt stated she no longer has a headache and has not had a chance to check her blood pressure yet. Advised pt to be seen in L&D for evaluation but if she can not make it to [place] can be seen and [place] and to keep appt tomorrow, verbalized understanding. 64725-7Dsepdnswv encounter IfnbMM7813-55-91J47:27:44Telephone encounter NoteTXT1.2.840.968408.1.13.104.2.7.2.7278 79|[id number] for patient vzbk32749-5DrztNYIXJCIFZFQUehckevur C-CDA narrative [id number] VYOCLQIOPUJZFLHOT6352-11-94H68:27:441.2.8 40.863102.1.72.3.15|1.2.840.695407.1.13.1 04.2.7.2.727879_[id number] [facility] 2023-03-16 09:12:05 EKFblBEWr50FxH5BKcLAeha89sM7AJ8jTXPhSZBH O WfJHuieB98Ziivw6lAO/aCA4181-05-85P49:12:0 5 She needs to be seen in L&D if BP are running high especially with headaches and dizziness. I would not wait to see me tomorrow. 03517-8Crjkkuntg encounter NfacRV4899-33-86Q70:13:13Telephone encounter NoteTXT1.2.840.268392.1.13.104.2.7.2.7278 79|[id number] for patient tumo88060-1VarbLNKMKMLEAQQDqcjvdlfb C-CDA narrative [id number] ZPQMKYLURIFEFUHKK6755-85-86S80:13:131.2.8 40.904369.1.72.3.15|1.2.840.099144.1.13.1 04.2.7.2.727879_[id number] [facility] 2023-03-16 07:48:45 V8q8JLs4EVjaG4ZAi6yKpFFB6ut0rJBC6rvAZwG3 7 11LPlZONjSHb1VufeNo7h1L1026-31-77C91:48:4 5 Patient stated on Thursday03/14/2023 she started having a headache and feeling dizzy. Stated her Blood pressures were running around 140/89 on 03/14 and 03/15. Stated she had left over Nifedipine from her last and took one pill. Stated she did take Tylenol for the headaches and did have relief. Stated she does have a headache this morning rated about a 2/10 but has not taken any medication since she just woke up. Patient does not have a blood pressure cuff available but will take BP later today. Advised patient to take Tylenol for headache and to report to ER if symptoms return. Advised not to take Nifedipine since it was not prescribed for this . Appt scheduled for tomorrow at 7:45 for evaluation, ER warnings given, verbalized understanding. 81261-7Ibvfoufvi encounter PivjWF3761-76-95P01:02:31Telephone encounter NoteTXT1.2.840.466391.1.13.104.2.7.2.7278 79|[id number] for patient apat96545-0KqawOROQNVKBNQUOvwcaepgv C-CDA narrative text[address] PmlaGnhbnxjwlAdbemxfwxWLAY0956527694IHXKC THSNTAETZYDMPHSXT7756-43-55M90:02:311.2.8 40.858715.1.72.3.15|1.2.840.876364.1.13.1 04.2.7.2.727879_[id number] [facility] 2023-03-14 16:12:05 m1vMxH/MNtPFmxs5XvE7D7N9M1BQm92BjiS0sGw5 P OMvP3HEZG6j+VGA2Y0PfhkB8109-70-32A03:12:0 5 Tanika Lawrence is a 22 year old femalePatient calling to notify she believes she is having symptoms of preeclympsia and high blood pressure. Blood pressure was at pre hypertension level yesterday. And was having a headache.Asked if she wanted to speak with [facility] nurse and she denied at this time.Patient is also asking for blood pressure medication and albuteral 83989-1Rkwbuwkdp encounter MshoEH5103-25-38A65:15:40Telephone encounter NoteTXT1.2.840.696439.1.13.104.2.7.2.7278 79|[id number] for patient qhrk51878-2NbirHISITXSDYEXHcppxcplj C-CDA narrative ihin209699792Pzsfm Taj [address] HelxVvbdqujfmOjcbmvvdiWTBI1119178885DJMLY UWDZMLTZNBGFIGFSK7652-17-96Q46:15:401.2.8 40.502100.1.72.3.15|1.2.840.864959.1.13.1 04.2.7.2.727879_[id number] May Beronica [facility] 2023-03-11 13:03:49 tq2sYsTmIF90xyGXrBTCBPUx8ezWUIqdzgffI8/F H Puh87YVhBh6Kw2nwqP8QCmL8837-81-99O59:03:4 9 Patient informed labs were normal and no concern at this time per provider, verbalized understanding. 87228-3Dhvjzirma encounter MhcxWE4905-86-67U59:05:10Telephone encounter NoteTXT1.2.840.011571.1.13.104.2.7.2.7278 79|[id number] for patient drzo87749-6UmkoTZGCGNQIPCUUblwbcchq C-CDA narrative text[id number] LTSPUFNJJKTOHAGZQ1223-87-43O18:05:101.2.8 40.471393.1.72.3.15|1.2.840.271413.1.13.1 04.2.7.2.727879_[id number] [facility] 2023-03-11 12:14:57 M7V+HRDi0OBooHohdoa/gBZrOIjGZ1pYEMShlIej p w/rwcizdzVocWzrKmRhRuae3416-58-43Z39:14:5 7 This is iron deficiency anemia which is common in . 12298-8Wylqkwjnn encounter NwqgJB2012-96-06U41:15:19Telephone encounter NoteTXT1.2.840.847187.1.13.104.2.7.2.7278 79|7902382369LBPvckxltiy for patient lzxf86157-3YzrmQLPJQFHKCSTImjpbgeqb C-CDA narrative text[id number] MSAWKKQQQPKOKSMCJ5842-58-49W91:15:191.2.8 40.658509.1.72.3.15|1.2.840.915805.1.13.1 04.2.7.2.727879_[id number] [facility] 2023-03-11 09:25:57 hGZJ2uEnk8ml476GhX+sBhJHRmvbvu+eUaEE0i1S c z2QGo3bOnxSlA4Yr4zHOhMR5170-87-27E19:25:5 7 Patient informed of results and new orders for iron, verbalized understanding.Patient is concerned with cbc labs, stated she wanted to know if that could be related to anything autoimmune. Informed will route to provider to see if there are any concerns. 08705-0Pdawitiiy encounter LmbjQX3271-11-01J48:29:54Telephone encounter NoteTXT1.2.840.358825.1.13.104.2.7.2.7278 79|[id number] for patient rrsy04069-5CqduHWVQNPTCBGKJryiwxzmh C-CDA narrative [address] PuluCzxffldboVthlnaovgVDTQ4496330511LCNFB UOEVXWUSBODMJNDPJ6416-21-11U80:29:541.2.8 40.505830.1.72.3.15|1.2.840.489923.1.13.1 04.2.7.2.727879_[id number] [facility] 2023-03-11 08:47:44 PKbccGIF2d/fBdF/waHQPOUPI5fVMMlLKehBCrCh O PTgq9wwADwnTrL8uiTHCg7r6706-09-76W71:47:4 4 Pt is requesting call back to discuss results please call [phone] (home) 56116-3Kloxfwgvs encounter IyxwWT3763-29-15Y88:48:32Telephone encounter NoteTXT1.2.840.153129.1.13.104.2.7.2.7278 79|[id number] for patient zkmh83880-6AxxcMQKYWNHHDHVErrvqwymb C-CDA narrative uqky0536200XB [id number] HRFFUUFECMZQAIIWX0341-73-65T98:48:321.2.8 40.795664.1.72.3.15|1.2.840.498329.1.13.1 04.2.7.2.727879_[id number] [facility] 2023-03-05 17:15:47 SOC2d4k4n8iFTuDs10APc0eHIXkL5se4+iYGX6cs X 78fVhV+3Q5jqhqS4sqb/+Zv5354-36-97A97:15:4 7 Pt arrived via private car with c/o no movement since 03/04/2023 at about 2000. Denies any vaginal bleeding or loss of fluid. ; 31w1d gestation. Report called to BASIM Meléndez 28332-6Gtzdacrle department Triage qvvvUG3694-97-95L98:19:08[facility] Triage noteTXT1.2.840.380978.1.13.104.2.7.2.7278 79|[id number] for patient guqb25694-7Rrphpozyq department NoteLNNARRATIVEFormatted C-CDA narrative navb864402323Tqdue L Barker RN[id number] GIPQZTWISUBXFDEEI8375-47-39H07:19:081.2.8 40.573101.1.72.3.15|1.2.840.714329.1.13.1 04.2.7.2.727879_[id number] Alejandra Schmidt RN [facility] 2023-03-05 13:54:00 f0vt0xvLFlJfXD9vASBZ6bhsHpi7lBoH23NLYyEH u KBGQHKVQUVTLfM3eQBArpCw2855-58-04P68:54:0 0 Regarding: ang rwsp: 31 wks ob, no movement x 1 day; right side/back pain x 2 weeks----- Message from Jennifer Yanez sent at 03/05/2023 1:47 PM ROD STRAIGHTENER -----Tanika Lawrence is a 22 year old female 79305-9Iddicjhre encounter IeqxMT6819-75-50E66:54:08Telephone encounter NoteTXT1.2.840.887305.1.13.104.2.7.2.7278 79|[id number] for patient xkbb68369-3RwxeFSDSMKLYZMWDmqvwvgic C-CDA narrative clup145166434Khbvd T McPhee RNUT[address] MmxzZtngxfxstGxhqzbixgABSS2006744780YOQMD IBWPGPBKYAHWYVKPK4606-56-36M31:54:081.2.8 40.254962.1.72.3.15|1.2.840.942047.1.13.1 04.2.7.2.727879_[id number] Judy Cat RN [facility] 2023-03-05 13:54:00 WvM9BQNlTAB+cZ7CqNU+gP6+5UmkVB92JFuvzVjZ P z1S01IajcPoAmYGjXwIzxmJ6711-04-67G79:54:0 0 Triage AssessmentLast Clinic Visit: 11/25/2022-Routine appt, HRPPrimary Symptom: decreased movementOnset / Duration: Last felt the baby move at 8 pm last night.Location / Description: abdPain / Severity: right back pain, 4/10 pain. "I have gallbladder issues when I am ."Associated Symptoms: + nausea denies vomiting. Denies double vision or blurry vision. Nose bleeds started 3-4 days ago, at least 1-2 a day. Bleeding stops within 10 minutes. Denies having the heat on in her house.Fever / Method: Denies, temp not checked.Hydration: Appetite is decreased. Drank a few sips today. Last void at 11 am today. Denies burning with urination.Treatment so far: Rotating on each side, took 2 ice cubes. Poked her belly.Effect on ADL's: some changeGestational Weeks: 31 weeksRupture Membranes: deniesBleeding / Spotting / Pads per hour: deniesFetal Movement: Last felt the baby move at 8 pm last night.Para / : L0Z3OGW: 4Pre-existing condition / Immunocompromised: hx of miscarriageReason for Disposition[1] 23 or more weeks AND [2] baby moving less today by kick count (e.g., kick count < 5 in 1 hour or < 10 in 2 hours)Protocols used: - Decreased Xnyixeyp-RKPQU-OL"My baby stopped moving at 8 pm last night" per pt.I advised her to have someone drive her to [place] [facility], or the closest ER to her. She states she will have someone drive her to [place]. 911 precautions reinforced. She stated understanding.Judy KevinN 07449-1Fhkxdralb encounter KmnzPM8880-67-94N69:09:57Telephone encounter NoteTXT1.2.840.854149.1.13.104.2.7.2.7278 79|[id number] for patient tdfp27756-7QxbiOTZJMBQLYVRRoppcqplx C-CDA narrative textUTMBUT - [address] SoemSvtowvmltWfjgqcxnhXEMB9364034292MNVLQ KTUCCXYJYJRWYYKPQ9977-64-02T81:09:571.2.8 40.345173.1.72.3.15|1.2.840.868615.1.13.1 04.2.7.2.727879_[id number] [facility] 2022-11-03 07:42:25 C8IpajxzI4K9GY4nKb79kOs44l8JBWFF5m9DBvUK G vZKekvZra5krfyoHL/v0ctR6552-17-91X47:42:2 5 Please review encounter and close 68339-7Ohlfibvtx encounter HrocZR4444-29-29N16:51:00Telephone encounter NoteTXT1.2.840.582224.1.13.104.2.7.2.7278 79|[id number] for patient vyaz39644-5RviqSS596977179Ktdky D Lars[address] JvejGmztansqhWslnahozsUCSV7986743097BXGJU KKLJVLMCLQBYHBDHC1214-95-40W60:51:001.2.8 40.311513.1.72.3.15|1.2.840.284882.1.13.1 04.2.7.2.727879_[id number] Palma Rincon [facility] 2022-10-24 15:17:26 Q8pkoZbKtzi8xxkIc6T223O5PSX4XcPaPnC6xCot f LMBJU479sGZNPXct+MLfa4K0751-20-93E50:17:2 6 Spoke with patient. Will recommend ENT prior to CT imaging due to pregnancyPlease help with scheduling 82465-1Svsghiivp encounter GyogLM8438-36-50Y94:17:59Telephone encounter NoteTXT1.2.840.762117.1.13.104.2.7.2.7278 79|[id number] for patient bkrk34450-6EsuuXMDPKDNARQ[id number] HISDRJUSPJHRBEQSQ9519-25-40E47:17:591.2.8 40.774205.1.72.3.15|1.2.840.533183.1.13.1 04.2.7.2.727879_[id number] [facility] 2022-10-24 14:06:28 GlVEmAxKo6XKrFMx7jLLqYgUJ9bhvd0Hb7Gr6XKo 7 M4k8KLs442E1qtC9yJrRXqn8244-63-49E94:06:2 8 Tanika Lawrence is a 22 year old female calling requesting to talk with nurse about veiwing MyChart results from 10/23 . Please contact patient at [phone] signed by Palma Rincon at 10/24/2022 2:08 PM CRC73626-1Lcjleflfy encounter RnscFW8246-18-74K39:08:17Telephone encounter NoteTXT1.2.840.137464.1.13.104.2.7.2.7278 79|[id number] for patient gxdr44563-1FzvkVWXYBSRFOK[address]TXTX7755577555[place] BPXQNXTMMWMLQQKXX8330-05-93O04:08:171.2.8 40.172329.1.72.3.15|1.2.840.779292.1.13.1 04.2.7.2.727879_[id number] [facility] 2018-06-13 18:18:00 EOcbglwoxbn33379428joPQMKdh8EtN2rC+F0k/M A ycsa0/scHPmnhpXeGZQ7chMgPFuOhACtbwrzaAQBw g4066-66-94K98:18:00 [facility] ([facility])EMERGENCY PROVIDER REPORTREPORT#:[id number] REPORT STATUS: SignedDATE:06/13/18 TIME: 1817 PATIENT: TANIKA LAWRENCE UNIT #: [id number]#: [id number] ROOM/BED:AGE: 17 SEX: F PCP PHYS: DOES_NOT KNOWSERVICE AUTHOR: Silvana Anthony NP * ALL edits or amendments must be made on the electronic/computer document * Silvana Anthony 06/13/181817:HPI-Dyspnea/Wheezing GeneralConfirmed Patient YesPCPnone PresentationChief Complaint Asthma attack, Shortness of breath, WheezingHx Obtained From Patient)( Sudden in Onset? YesOnset Occurred YesterdaySymptom Duration ConstantProgression since Onset Constant, Rapidly worseningCaused by No trauma by historyLocation NoneSeverity: Current No pain currentlyAssociated withDenies: Anxiety, Calf pain, Chest pain, Cough, Diaphoresis, Fever, Hemoptysis, Leg pain, Leg swelling, Loss of consciousness, Nasal congestion, Nausea, Numbness, perioral, Numbness, hands, Numbness, feet, Sore throat, Vomiting, Wheeze. ContextRecent Healthcare No recent doctor visit, No recent hospitalizationPregnancy/Sexual Hx Last Menstrual Period 05/07/18 Risk-Dyspnea/Wheezing Risk StratificationCoronary Artery Disease Risk factors reviewed, Diabetes mellitus (pre) Review of Systems Focused Review of SystemsConstitutionalDenies: Chills, Fever, Lethargy. Ears/Nose/ThroatDenies: Earache bilat, Nasal congestion, Sore throat. RespiratoryReports: Shortness of breath, Wheezing. Denies: Cough, non-productive. CardiovascularDenies: Chest pain, Syncope. MusculoskeletalDenies: Back pain, Extremity pain. SkinDenies: Diaphoresis, Rash. Allergy/ImmunDenies: Hives, Itching. Additional Review of SystemsGIDenies: Abdominal pain, Constipation, Diarrhea, Rectal pain, Vomiting. Past Medical History - AdultStated Complaint SHORTNESS OF BREATHAllergiesCoded Allergies:No Known Allergies (02/20/16) Review of Nursing Notes Rev avail, and agreePast Medical History:Reports: Asthma, Diabetes mellitus (pre-dm), Seizure disorder. Alcohol Use Denies EtOH useDrug Use Denies recreational drugsSmoking status for patients 13 years old or older: Never SmokerOther Social History Local resident, Good social supportOccupationstudentAmbulatory Status Independent Physical Exam Vital SignsVital SignsFirst Documented: Result Date Time Pulse Ox 97 06/13 1806 B/P 125/79 06/13 1806 B/P Mean 94.3 06/13 1806 Temp 36.4 06/13 1806 Pulse 84 06/13 1806 Resp 20 06/13 1806 O2 Delivery Nasal cannula 06/13 1822 O2 Flow Rate 2.131564 06/13 1822 Last Documented: Result Date Time Pulse Ox 98 06/14 1927 B/P 154/65 06/14 1927 B/P Mean 94.7 06/14 1927 Temp 36.6 06/14 1927 Pulse 94 06/14 1927 Resp 18 06/14 1927 O2 Delivery Nasal cannula 06/13 1824 O2 Flow Rate 4.120885 06/13 1824 Review of Vital Signs Reviewed Focused PEGeneral/Const General/Const Awake, AlertEars/Nose/Throat Ears/Nose/Throat Airway patent, Mucous membranes moist, Pharynx NLMS Neck Neck Atraumatic, Supple, No meningismus, Full range of motion, No swelling, Non-tender, No massesResp/Chest Respiratory/Chest Atraumatic, No rales, No rhonchi, No stridor, No chest tenderness, No chest wall deformity, No crepitus Resp Distress/Stridor Resp distress moderate, Speaks phrases. Negative: Speaks words only, Agonal respiration, Intubated. Wheezing/Retractions Wheeze insp/exp diffuse, Wheezing expiratory, Wheezing inspiratory, Wheezing moderate, Retractions mild. Negative: Nasal flaring. Cardiovascular Cardiovascular Heart rate NL, Regular rhythm, Heart sounds NL, Peripheral circulation NLAbdomen/GI Abdomen/GI Soft, Non-tender, No guarding, No reboundMS Back Back Inspection NL, Non-tender, No CVA tendernessMS Lower Extrem Lower Ext/Pelvis/MS Inspection NL, No swelling, Non-tender, No erythema, No deformity, Neurologic intact, No edemaSkin Skin Color NL, No rash, Warm, Dry, Turgor NLNeurologic Neurologic Oriented X3, Speech NL, No motor deficits, No sensory deficits Additional PEPsychiatric Psychiatric Affect NL, Mood NL, Not suicidal, Not homicidal, No hallucinations Interpretation Diagnostics Lab Results InterpretationResultsLaboratory Tests: 06/13 1822 Chemistry Beta HCG, Quant (0 - 4.9 IU/L) <5.0 Recent Impressions:RADIOLOGY - XR CHEST 1 V 06/13 1813 Report Impression - Status: SIGNED Entered: 06/13/20181831 Impression: 1. No radiographic evidence of acute cardiopulmonary disease. Impression By: Daljit Meredith MD Imaging StatementRadiographic studies reviewed and considered in the medical decision-making. Point of Care TestingPulse Oximetry Pulse Ox % 97 On: Room air Interpretation Pulse oximetry normal Time 1806 Re-Evaluation MDM Free Text MDM NotesFree Text MDM NotesPatient has improved and is back to baseline, pt reports that she feels better after her duoneb x3 treatments and solumedrol 125mg IVP. Pt chest xray clear, pthas proair inhaler at home but needs a refill. Pt will be given rx for prednisone for 4 more days. Pt encouraged to rest, increase oral fluids and stayaway from asthma triggers including smoke. Pt feels good enough to go home, pcp handout given and f/u with 2 them in 2 days, also gave pt pulmonary info )( Re-Evaluation/Progress #1Time of Re-Eval 1906)( Re-Eval Status ImprovedRe-Eval Resp/Chest Mild wheezingTreatment Summary Combined albut atrovent, Steroid therapyPlan Post Re-Eval Plan observe Re-Evaluation/Progress #2Time of 1929Re-Eval Status ImprovedRe-Eval Resp/Chest Breath sounds normal, No wheezingTreatment Summary Combined albut atrovent (x3), Steroid therapyPain Re-Evaluation Denies pain ED CourseMedication(s) OrderedMedication(s) Ordered:Autonomic Drugs Sig/[place] Start time Last Medication Dose Route Stop Time Status Admin Albuterol/Ipratropium 3 ML Q15M 06/13 1814 DC 06/13 INH 06/13 Hormones And Synthetic Substit Sig/[place] Start time Last Medication Dose Route Stop Time Status Admin Methylprednisolone 125 MG X1ED STA 06/13 1806 DC 06/13 Sodium Succinate IV 06/13 Differential DiagnosisDifferential Diagnosis Airway obstruction, Allergic reaction, Anxiety, Asthma, Bronchitis, Foreign body airway, Pneumonia Patient Discharge Departure Vital Signs/ConditionVital SignsFirst Documented: Result Date Time Pulse Ox 97 06/13 1806 B/P 125/79 06/13 1806 B/P Mean 94.3 06/13 1806 Temp 36.4 06/13 1806 Pulse 84 06/13 1806 Resp 20 06/13 1806 O2 Delivery Nasal cannula 06/13 1822 O2 Flow Rate 2.781979 06/13 1822 Last Documented: Result Date Time Pulse Ox 98 06/14 1927 B/P 154/65 06/14 1927 B/P Mean 94.7 06/14 1927 Temp 36.6 06/14 1927 Pulse 94 06/14 1927 Resp 18 06/14 1927 O2 Delivery Nasal cannula 06/13 1824 O2 Flow Rate 4.791185 06/13 1824 All vital signs available at the time of this entry have been reviewed. Condition Stable Clinical ImpressionClinical ImpressionPrimary Impression: Asthma exacerbation Disposition DecisionDischarge )( Discharged to Home Yes )( Time 193 )( Date 06/13/18 Discharge/Care PlanCounseled Regarding Diagnosis, Imaging studies, Prescriptions, Need for follow-up, When to return to EDPrescriptionsproair, prednisonePrescriptions Reviewed Risks, Benefits, Alternative treatment Discharge NoteI have spoken with the patient and/or caregivers. I have explained the patient'scondition, diagnoses and treatment plan based on the information available to meat this time. I have answered the patient's and/or caregiver's questions and addressed any concerns. The patient and/or caregivers have as good an understanding of the patient's diagnosis, condition and treatment plan as can beexpected at this point. The vital signs have been stable. The patient's condition is stable and appropriate for discharge from the emergency department. The patient will pursue further outpatient evaluation with the primary care physician or other designated or consulting physician as outlined in the discharge instructions. The patient and/or caregivers are agreeable to this planof care and follow-up instructions have been explained in detail. The patient and/or caregivers have received these instructions in written format and have expressed an understanding of the discharge instructions. The patient and/or caregivers are aware that any significant change in condition or worsening of symptoms should prompt an immediate return to this or the closest emergency department or a call to 911. Quality MeasuresBP F/U for HTN Referred for BP f/u < 4wkSmoking Cessation Screened, non userTobacco Screening/Cessation 18 years or older, Denies tobacco use Carmina Cisneros 06/14/18 1024:HPI-Dyspnea/Wheezing GeneralInitial Greet Date/Time 06/13/18 180 Physical Exam Vital SignsVital Signs Interpretation Diagnostics Lab Results InterpretationResults Re-Evaluation MDM ED CourseMedication(s) Ordered Patient Discharge Departure Vital Signs/ConditionVital Signs Supervising Physician Note MidLv Saw Pt AloneI have reviewed the PA/EYEGL[employer] FRAME TRUER's note and plan of care. I was available for consultation as needed at all times during the patient's visit in the emergency department. I agree with the clinical impression, plan and disposition. at 1024RPT #:[id number] OF REPORTEDEmergency department [id number]:18:00C.[id number] for patient [id number]:26:34 [facility] 2018-06-13 18:18:00 [id number] G [id number]/[id number] 14786-08-14L80:18:00 [facility] ([facility])EMERGENCY PROVIDER REPORTREPORT#:[id number] REPORT STATUS: SignedDATE:06/13/18 TIME: 1817 PATIENT: TANIKA LAWRENCE UNIT #: [id number]#: [id number] ROOM/BED:AGE: 17 SEX: F PCP PHYS: DOES_NOT KNOWSERVICE AUTHOR: Silvana Anthony NP * ALL edits or amendments must be made on the electronic/computer document * Silvana Anthony 06/13/181817:HPI-Dyspnea/Wheezing GeneralConfirmed Patient YesInitial Greet Date/Time 06/13/181806PCPnone PresentationChief Complaint Asthma attack, Shortness of breath, WheezingHx Obtained From Patient)( Sudden in Onset? YesOnset Occurred YesterdaySymptom Duration ConstantProgression since Onset Constant, Rapidly worseningCaused by No trauma by historyLocation NoneSeverity: Current No pain currentlyAssociated withDenies: Anxiety, Calf pain, Chest pain, Cough, Diaphoresis, Fever, Hemoptysis, Leg pain, Leg swelling, Loss of consciousness, Nasal congestion, Nausea, Numbness, perioral, Numbness, hands, Numbness, feet, Sore throat, Vomiting, Wheeze. ContextRecent Healthcare No recent doctor visit, No recent hospitalizationPregnancy/Sexual Hx Last Menstrual Period 05/07/18 Free Text HPI NotesFree Text HPI Notes17 year old female presents to the ER with her plans of having an asthmaattack since last night. Pt reports that last night she started coughing and wheezing and used her pro air inhaler and it seem to help but this morning the wheezing got worse and the inhaler did not help. Patient presents to the ER in moderate distress, patient is able to speak in complete sentences although getsshort of breath easy. Patient denies any recent travel, fever, nausea, vomiting,diarrhea or chest pain. Pt does not have a nebulizer at the house just her inhaler only, pt has no pcp and hasn't seen a specialist since she was a child. Risk-Dyspnea/Wheezing Risk StratificationCoronary Artery Disease Risk factors reviewed, Diabetes mellitus (pre) Review of Systems Focused Review of SystemsConstitutionalDenies: Chills, Fever, Lethargy. Ears/Nose/ThroatDenies: Earache bilat, Nasal congestion, Sore throat. RespiratoryReports: Shortness of breath, Wheezing. Denies: Cough, non-productive. CardiovascularDenies: Chest pain, Syncope. MusculoskeletalDenies: Back pain, Extremity pain. SkinDenies: Diaphoresis, Rash. Allergy/ImmunDenies: Hives, Itching. Additional Review of SystemsGIDenies: Abdominal pain, Constipation, Diarrhea, Rectal pain, Vomiting. Past Medical History - AdultStated Complaint SHORTNESS OF BREATHAllergiesCoded Allergies:No Known Allergies (02/20/16) Review of Nursing Notes Rev avail, and agreePast Medical History:Reports: Asthma, Diabetes mellitus (pre-dm), Seizure disorder. Alcohol Use Denies EtOH useDrug Use Denies recreational drugsSmoking status for patients 13 years old or older: Never SmokerOther Social History Local resident, Good social supportOccupationstudentAmbulatory Status Independent Physical Exam Vital SignsVital Signs Review of Vital Signs Reviewed Focused PEGeneral/Const General/Const Awake, AlertEars/Nose/Throat Ears/Nose/Throat Airway patent, Mucous membranes moist, Pharynx NLMS Neck Neck Atraumatic, Supple, No meningismus, Full range of motion, No swelling, Non-tender, No massesResp/Chest Respiratory/Chest Atraumatic, No rales, No rhonchi, No stridor, No chest tenderness, No chest wall deformity, No crepitus Resp Distress/Stridor Resp distress moderate, Speaks phrases. Negative: Speaks words only, Agonal respiration, Intubated. Wheezing/Retractions Wheeze insp/exp diffuse, Wheezing expiratory, Wheezing inspiratory, Wheezing moderate, Retractions mild. Negative: Nasal flaring. Cardiovascular Cardiovascular Heart rate NL, Regular rhythm, Heart sounds NL, Peripheral circulation NLAbdomen/GI Abdomen/GI Soft, Non-tender, No guarding, No reboundMS Back Back Inspection NL, Non-tender, No CVA tendernessMS Lower Extrem Lower Ext/Pelvis/MS Inspection NL, No swelling, Non-tender, No erythema, No deformity, Neurologic intact, No edemaSkin Skin Color NL, No rash, Warm, Dry, Turgor NLNeurologic Neurologic Oriented X3, Speech NL, No motor deficits, No sensory deficits Additional PEPsychiatric Psychiatric Affect NL, Mood NL, Not suicidal, Not homicidal, No hallucinations Interpretation Diagnostics Lab Results InterpretationResultsLaboratory Tests: 06/13 1822 Chemistry Beta HCG, Quant (0 - 4.9 IU/L) <5.0 Recent Impressions:RADIOLOGY - XR CHEST 1 V 06/13 1813 Report Impression - Status: SIGNED Entered: 06/13/20181831 Impression: 1. No radiographic evidence of acute cardiopulmonary disease. Impression By: Daljit Meredith MD Imaging StatementRadiographic studies reviewed and considered in the medical decision-making. Point of Care TestingPulse Oximetry Pulse Ox % 97 On: Room air Interpretation Pulse oximetry normal Time 1806 Re-Evaluation MDM Free Text MDM NotesFree Text MDM NotesPatient has improved and is back to baseline, pt reports that she feels better after her duoneb x3 treatments and solumedrol 125mg IVP. Pt chest xray clear, pthas proair inhaler at home but needs a refill. Pt will be given rx for prednisone for 4 more days. Pt encouraged to rest, increase oral fluids and stayaway from asthma triggers including smoke. Pt feels good enough to go home, pcp handout given and f/u with 2 them in 2 days, also gave pt pulmonary info )( Re-Evaluation/Progress #1Time of Re-Eval 1906)( Re-Eval Status ImprovedRe-Eval Resp/Chest Mild wheezingTreatment Summary Combined albut atrovent, Steroid therapyPlan Post Re-Eval Plan observe Re-Evaluation/Progress #2Time of Eval 1929Re-Eval Status ImprovedRe-Eval Resp/Chest Breath sounds normal, No wheezingTreatment Summary Combined albut atrovent (x3), Steroid therapyPain Re-Evaluation Denies pain ED CourseMedication(s) OrderedMedication(s) Ordered:Autonomic Drugs Sig/[place] Start time Last Medication Dose Route Stop Time Status Admin Albuterol/Ipratropium 3 ML Q15M 06/13 1814 DC 06/13 INH 06/13 184 182 Hormones And Synthetic Substit Sig/[place] Start time Last Medication Dose Route Stop Time Status Admin Methylprednisolone 125 MG X1ED STA 06/13 1806 DC 06/13 Sodium Succinate IV 06/13 180 1819 Differential DiagnosisDifferential Diagnosis Airway obstruction, Allergic reaction, Anxiety, Asthma, Bronchitis, Foreign body airway, Pneumonia Patient Discharge Departure Vital Signs/ConditionVital Signs Condition Stable Clinical ImpressionClinical ImpressionPrimary Impression: Asthma exacerbation Disposition DecisionDischarge )( Discharged to Home Yes )( Time 1929 )( Date 06/13/18 Discharge/Care PlanCounseled Regarding Diagnosis, Imaging studies, Prescriptions, Need for follow-up, When to return to EDPrescriptionsproair, prednisonePrescriptions Reviewed Risks, Benefits, Alternative treatment Discharge NoteI have spoken with the patient and/or caregivers. I have explained the patient'scondition, diagnoses and treatment plan based on the information available to meat this time. I have answered the patient's and/or caregiver's questions and addressed any concerns. The patient and/or caregivers have as good an understanding of the patient's diagnosis, condition and treatment plan as can beexpected at this point. The vital signs have been stable. The patient's condition is stable and appropriate for discharge from the emergency department. The patient will pursue further outpatient evaluation with the primary care physician or other designated or consulting physician as outlined in the discharge instructions. The patient and/or caregivers are agreeable to this planof care and follow-up instructions have been explained in detail. The patient and/or caregivers have received these instructions in written format and have expressed an understanding of the discharge instructions. The patient and/or caregivers are aware that any significant change in condition or worsening of symptoms should prompt an immediate return to this or the closest emergency department or a call to 911. Quality MeasuresBP F/U for HTN Referred for BP f/u < 4wkSmoking Cessation Screened, non userTobacco Screening/Cessation 18 years or older, Denies tobacco use Carmina Cisneros 06/14/18 1024:Physical Exam Vital SignsVital SignsFirst Documented: Result Date Time Pulse Ox 97 06/13 1806 B/P 125/79 06/13 1806 B/P Mean 94.3 06/13 1806 Temp 97.5 06/13 180 Pulse 84 06/13 180 Resp 20 06/13 1807 O2 Delivery Nasal cannula 06/13 1823 O2 Flow Rate 2.240206 06/13 182 Last Documented: Result Date Time Pulse Ox 98 06/14 1927 B/P 154/65 06/13 192 B/P Mean 94.7 06/14 1927 Temp 97.9 06/13 192 Pulse 94 06/13 192 Resp 18 06/13 192 O2 Delivery Nasal cannula 06/13 182 O2 Flow Rate 4.140528 06/13 1825 Interpretation Diagnostics Lab Results InterpretationResults Re-Evaluation MDM ED CourseMedication(s) Ordered Patient Discharge Departure Vital Signs/ConditionVital SignsFirst Documented: Result Date Time Pulse Ox 97 06/13 180 B/P 125/79 06/13 180 B/P Mean 94.3 06/13 180 Temp 97.5 06/13 180 Pulse 84 06/13 1807 Resp 20 04/21 180 O2 Delivery Nasal cannula 06/13 182 O2 Flow Rate 2.351301 06/13 1822 Last Documented: Result Date Time Pulse Ox 98 06/14 1927 B/P 154/65 06/14 1927 B/P Mean 94.7 06/14 1927 Temp 97.9 06/14 1927 Pulse 94 06/14 1927 Resp 18 06/14 1927 O2 Delivery Nasal cannula 06/13 1824 O2 Flow Rate 4.325430 06/13 1824 All vital signs available at the time of this entry have been reviewed. Supervising Physician Note MidLv Saw Pt AloneI have reviewed the PA/EYE[employer] FRAME TRUER's note and plan of care. I was available for consultation as needed at all times during the patient's visit in the emergency department. I agree with the clinical impression, plan and disposition. at 1024RPT #:[id number] OF REPORTEDEmergency department [id number]:18:00C.[id number] for patient [id number]:09:57 [facility] 2018-06-13 18:18:00 [id number]/cV2E+qy [id number]:18:00 [facility] REPORTREPORT#:[id number] REPORT STATUS: SignedDATE:06/13/18 TIME: 1817 PATIENT: TANIKA LAWRENCE UNIT #: [id number]#: [id number] ROOM/BED:AGE: 17 SEX: F PCP PHYS: DOES_NOT KNOWSERVICE AUTHOR: Silvana Anthony EYEGL[employer] FRAME TRUER * ALL edits or amendments must be made on the electronic/computer document * Silvana Anthony 06/13/181817:HPI-Dyspnea/Wheezing GeneralConfirmed Patient YesInitial Greet Date/Time 06/13/187PCPnone PresentationChief Complaint Asthma attack, Shortness of breath, WheezingHx Obtained From Patient)( Sudden in Onset? YesOnset Occurred YesterdaySymptom Duration ConstantProgression since Onset Constant, Rapidly worseningCaused by No trauma by historyLocation NoneSeverity: Current No pain currentlyAssociated withDenies: Anxiety, Calf pain, Chest pain, Cough, Diaphoresis, Fever, Hemoptysis, Leg pain, Leg swelling, Loss of consciousness, Nasal congestion, Nausea, Numbness, perioral, Numbness, hands, Numbness, feet, Sore throat, Vomiting, Wheeze. ContextRecent Healthcare No recent doctor visit, No recent hospitalizationPregnancy/Sexual Hx Last Menstrual Period 05/07/18 Free Text HPI NotesFree Text HPI Notes17 year old female presents to the ER with her plans of having an asthmaattack since last night. Pt reports that last night she started coughing and wheezing and used her pro air inhaler and it seem to help but this morning the wheezing got worse and the inhaler did not help. Patient presents to the ER in moderate distress, patient is able to speak in complete sentences although getsshort of breath easy. Patient denies any recent travel, fever, nausea, vomiting,diarrhea or chest pain. Pt does not have a nebulizer at the house just her inhaler only, pt has no pcp and hasn't seen a specialist since she was a child. Risk-Dyspnea/Wheezing Risk StratificationCoronary Artery Disease Risk factors reviewed, Diabetes mellitus (pre) Review of Systems Focused Review of SystemsConstitutionalDenies: Chills, Fever, Lethargy. Ears/Nose/ThroatDenies: Earache bilat, Nasal congestion, Sore throat. RespiratoryReports: Shortness of breath, Wheezing. Denies: Cough, non-productive. CardiovascularDenies: Chest pain, Syncope. MusculoskeletalDenies: Back pain, Extremity pain. SkinDenies: Diaphoresis, Rash. Allergy/ImmunDenies: Hives, Itching. Additional Review of SystemsGIDenies: Abdominal pain, Constipation, Diarrhea, Rectal pain, Vomiting. Past Medical History - AdultStated Complaint SHORTNESS OF BREATHAllergiesCoded Allergies:No Known Allergies (02/20/16) Review of Nursing Notes Rev avail, and agreePast Medical History:Reports: Asthma, Diabetes mellitus (pre-dm), Seizure disorder. Alcohol Use Denies EtOH useDrug Use Denies recreational drugsSmoking status for patients 13 years old or older: Never SmokerOther Social History Local resident, Good social supportOccupationstudentAmbulatory Status Independent Physical Exam Vital SignsVital Signs Review of Vital Signs Reviewed Focused PEGeneral/Const General/Const Awake, AlertEars/Nose/Throat Ears/Nose/Throat Airway patent, Mucous membranes moist, Pharynx NLMS Neck Neck Atraumatic, Supple, No meningismus, Full range of motion, No swelling, Non-tender, No massesResp/Chest Respiratory/Chest Atraumatic, No rales, No rhonchi, No stridor, No chest tenderness, No chest wall deformity, No crepitus Resp Distress/Stridor Resp distress moderate, Speaks phrases. Negative: Speaks words only, Agonal respiration, Intubated. Wheezing/Retractions Wheeze insp/exp diffuse, Wheezing expiratory, Wheezing inspiratory, Wheezing moderate, Retractions mild. Negative: Nasal flaring. Cardiovascular Cardiovascular Heart rate NL, Regular rhythm, Heart sounds NL, Peripheral circulation NLAbdomen/GI Abdomen/GI Soft, Non-tender, No guarding, No reboundMS Back Back Inspection NL, Non-tender, No CVA tendernessMS Lower Extrem Lower Ext/Pelvis/MS Inspection NL, No swelling, Non-tender, No erythema, No deformity, Neurologic intact, No edemaSkin Skin Color NL, No rash, Warm, Dry, Turgor NLNeurologic Neurologic Oriented X3, Speech NL, No motor deficits, No sensory deficits Additional PEPsychiatric Psychiatric Affect NL, Mood NL, Not suicidal, Not homicidal, No hallucinations Interpretation Diagnostics Lab Results InterpretationResultsLaboratory Tests: 06/13 1822 Chemistry Beta HCG, Quant (0 - 4.9 IU/L) <5.0 Recent Impressions:RADIOLOGY - XR CHEST 1 V 06/13 1813 Report Impression - Status: SIGNED Entered: 06/13/20181831 Impression: 1. No radiographic evidence of acute cardiopulmonary disease. Impression By: Daljit Meredith MD Imaging StatementRadiographic studies reviewed and considered in the medical decision-making. Point of Care TestingPulse Oximetry Pulse Ox % 97 On: Room air Interpretation Pulse oximetry normal Time 1806 Re-Evaluation MDM Free Text MDM NotesFree Text MDM NotesPatient has improved and is back to baseline, pt reports that she feels better after her duoneb x3 treatments and solumedrol 125mg IVP. Pt chest xray clear, pthas proair inhaler at home but needs a refill. Pt will be given rx for prednisone for 4 more days. Pt encouraged to rest, increase oral fluids and stayaway from asthma triggers including smoke. Pt feels good enough to go home, pcp handout given and f/u with 2 them in 2 days, also gave pt pulmonary info )( Re-Evaluation/Progress #1Time of Re-Eval 1906)( Re-Eval Status ImprovedRe-Eval Resp/Chest Mild wheezingTreatment Summary Combined albut atrovent, Steroid therapyPlan Post Re-Eval Plan observe Re-Evaluation/Progress #2Time of Ev1929Re-Eval Status ImprovedRe-Eval Resp/Chest Breath sounds normal, No wheezingTreatment Summary Combined albut atrovent (x3), Steroid therapyPain Re-Evaluation Denies pain ED CourseMedication(s) OrderedMedication(s) Ordered:Autonomic Drugs Sig/[place] Start time Last Medication Dose Route Stop Time Status Admin Albuterol/Ipratropium 3 ML Q15M 06/13 1814 DC 06/13 INH 06/13 184 182 Hormones And Synthetic Substit Sig/[place] Start time Last Medication Dose Route Stop Time Status Admin Methylprednisolone 125 MG X1ED STA 06/13 1806 DC 06/13 Sodium Succinate IV 06/13 180 181 Differential DiagnosisDifferential Diagnosis Airway obstruction, Allergic reaction, Anxiety, Asthma, Bronchitis, Foreign body airway, Pneumonia Patient Discharge Departure Vital Signs/ConditionVital Signs Condition Stable Clinical ImpressionClinical ImpressionPrimary Impression: Asthma exacerbation Disposition DecisionDischarge )( Discharged to Home Yes )( Time 1929 )( Date 06/13/18 Discharge/Care PlanCounseled Regarding Diagnosis, Imaging studies, Prescriptions, Need for follow-up, When to return to EDPrescriptionsproair, prednisonePrescriptions Reviewed Risks, Benefits, Alternative treatment Discharge NoteI have spoken with the patient and/or caregivers. I have explained the patient'scondition, diagnoses and treatment plan based on the information available to meat this time. I have answered the patient's and/or caregiver's questions and addressed any concerns. The patient and/or caregivers have as good an understanding of the patient's diagnosis, condition and treatment plan as can beexpected at this point. The vital signs have been stable. The patient's condition is stable and appropriate for discharge from the emergency department. The patient will pursue further outpatient evaluation with the primary care physician or other designated or consulting physician as outlined in the discharge instructions. The patient and/or caregivers are agreeable to this planof care and follow-up instructions have been explained in detail. The patient and/or caregivers have received these instructions in written format and have expressed an understanding of the discharge instructions. The patient and/or caregivers are aware that any significant change in condition or worsening of symptoms should prompt an immediate return to this or the closest emergency department or a call to 911. Quality MeasuresBP F/U for HTN Referred for BP f/u < 4wkSmoking Cessation Screened, non userTobacco Screening/Cessation 18 years or older, Denies tobacco use Carmina Cisneros 06/14/18 1024:Physical Exam Vital SignsVital SignsFirst Documented: Result Date Time Pulse Ox 97 06/13 1806 B/P 125/79 06/13 180 B/P Mean 94.3 06/13 1806 Temp 97.5 06/13 180 Pulse 84 06/13 180 Resp 20 06/13 180 O2 Delivery Nasal cannula 06/13 182 O2 Flow Rate 2.629777 06/13 182 Last Documented: Result Date Time Pulse Ox 98 06/13 192 B/P 154/65 06/14 1927 B/P Mean 94.7 06/14 1927 Temp 97.9 06/13 192 Pulse 94 06/13 192 Resp 18 06/13 192 O2 Delivery Nasal cannula 06/13 182 O2 Flow Rate 4.587714 06/13 1825 Interpretation Diagnostics Lab Results InterpretationResults Re-Evaluation MDM ED CourseMedication(s) Ordered Patient Discharge Departure Vital Signs/ConditionVital SignsFirst Documented: Result Date Time Pulse Ox 97 06/13 1807 B/P 125/79 06/13 1807 B/P Mean 94.3 06/13 1806 Temp 97.5 06/13 180 Pulse 84 06/13 1807 Resp 20 04/21 1807 O2 Delivery Nasal cannula 06/13 1822 O2 Flow Rate 2.893562 06/13 1822 Last Documented: Result Date Time Pulse Ox 98 06/14 1927 B/P 154/65 06/14 1927 B/P Mean 94.7 06/14 1927 Temp 97.9 06/14 1927 Pulse 94 06/14 1927 Resp 18 06/14 1927 O2 Delivery Nasal cannula 06/13 1824 O2 Flow Rate 4.004109 06/13 1824 All vital signs available at the time of this entry have been reviewed. Supervising Physician Note MidLv Saw Pt AloneI have reviewed the PA/EYEGL[employer] FRAME TRUER's note and plan of care. I was available for consultation as needed at all times during the patient's visit in the emergency department. I agree with the clinical impression, plan and disposition. at 1024 at 1610RPT #:[id number] OF REPORTEDEmergency department [id number]:18:00C.[id number] for patient [id number]:11:49 [facility] 2018-06-13 18:18:00 [id number] M [id number]+[id number]+aFDHi9d+qI [id number]:18:00 [facility] ([facility])EMERGENCY PROVIDER REPORTREPORT#:[id number] REPORT STATUS: SignedDATE:06/13/18 TIME: 1817 PATIENT: TANIKA LAWRENCE UNIT #: [id number]#: [id number] ROOM/BED:AGE: 17 SEX: F PCP PHYS: DOES_NOT KNOWSERVICE AUTHOR: Silvana Anthony NP * ALL edits or amendments must be made on the electronic/computer document * Silvana Anthony 06/13/181817:HPI-Dyspnea/Wheezing GeneralConfirmed Patient YesPCPnone PresentationChief Complaint Asthma attack, Shortness of breath, WheezingHx Obtained From Patient)( Sudden in Onset? YesOnset Occurred YesterdaySymptom Duration ConstantProgression since Onset Constant, Rapidly worseningCaused by No trauma by historyLocation NoneSeverity: Current No pain currentlyAssociated withDenies: Anxiety, Calf pain, Chest pain, Cough, Diaphoresis, Fever, Hemoptysis, Leg pain, Leg swelling, Loss of consciousness, Nasal congestion, Nausea, Numbness, perioral, Numbness, hands, Numbness, feet, Sore throat, Vomiting, Wheeze. ContextRecent Healthcare No recent doctor visit, No recent hospitalizationPregnancy/Sexual Hx Last Menstrual Period 05/07/18 Free Text HPI NotesFree Text HPI Notes17 year old female presents to the ER with her plans of having an asthmaattack since last night. Pt reports that last night she started coughing and wheezing and used her pro air inhaler and it seem to help but this morning the wheezing got worse and the inhaler did not help. Patient presents to the ER in moderate distress, patient is able to speak in complete sentences although getsshort of breath easy. Patient denies any recent travel, fever, nausea, vomiting,diarrhea or chest pain. Pt does not have a nebulizer at the house just her inhaler only, pt has no pcp and hasn't seen a specialist since she was a child. Risk-Dyspnea/Wheezing Risk StratificationCoronary Artery Disease Risk factors reviewed, Diabetes mellitus (pre) Review of Systems Focused Review of SystemsConstitutionalDenies: Chills, Fever, Lethargy. Ears/Nose/ThroatDenies: Earache bilat, Nasal congestion, Sore throat. RespiratoryReports: Shortness of breath, Wheezing. Denies: Cough, non-productive. CardiovascularDenies: Chest pain, Syncope. MusculoskeletalDenies: Back pain, Extremity pain. SkinDenies: Diaphoresis, Rash. Allergy/ImmunDenies: Hives, Itching. Additional Review of SystemsGIDenies: Abdominal pain, Constipation, Diarrhea, Rectal pain, Vomiting. Past Medical History - AdultStated Complaint SHORTNESS OF BREATHAllergiesCoded Allergies:No Known Allergies (02/20/16) Review of Nursing Notes Rev avail, and agreePast Medical History:Reports: Asthma, Diabetes mellitus (pre-dm), Seizure disorder. Alcohol Use Denies EtOH useDrug Use Denies recreational drugsSmoking status for patients 13 years old or older: Never SmokerOther Social History Local resident, Good social supportOccupationstudentAmbulatory Status Independent Physical Exam Vital SignsVital Signs Review of Vital Signs Reviewed Focused PEGeneral/Const General/Const Awake, AlertEars/Nose/Throat Ears/Nose/Throat Airway patent, Mucous membranes moist, Pharynx NLMS Neck Neck Atraumatic, Supple, No meningismus, Full range of motion, No swelling, Non-tender, No massesResp/Chest Respiratory/Chest Atraumatic, No rales, No rhonchi, No stridor, No chest tenderness, No chest wall deformity, No crepitus Resp Distress/Stridor Resp distress moderate, Speaks phrases. Negative: Speaks words only, Agonal respiration, Intubated. Wheezing/Retractions Wheeze insp/exp diffuse, Wheezing expiratory, Wheezing inspiratory, Wheezing moderate, Retractions mild. Negative: Nasal flaring. Cardiovascular Cardiovascular Heart rate NL, Regular rhythm, Heart sounds NL, Peripheral circulation NLAbdomen/GI Abdomen/GI Soft, Non-tender, No guarding, No reboundMS Back Back Inspection NL, Non-tender, No CVA tendernessMS Lower Extrem Lower Ext/Pelvis/MS Inspection NL, No swelling, Non-tender, No erythema, No deformity, Neurologic intact, No edemaSkin Skin Color NL, No rash, Warm, Dry, Turgor NLNeurologic Neurologic Oriented X3, Speech NL, No motor deficits, No sensory deficits Additional PEPsychiatric Psychiatric Affect NL, Mood NL, Not suicidal, Not homicidal, No hallucinations Interpretation Diagnostics Lab Results InterpretationResultsLaboratory Tests: 06/13 1822 Chemistry Beta HCG, Quant (0 - 4.9 IU/L) <5.0 Recent Impressions:RADIOLOGY - XR CHEST 1 V 06/13 1813 Report Impression - Status: SIGNED Entered: 06/13/20181831 Impression: 1. No radiographic evidence of acute cardiopulmonary disease. Impression By: Daljit Meredith MD Imaging StatementRadiographic studies reviewed and considered in the medical decision-making. Point of Care TestingPulse Oximetry Pulse Ox % 97 On: Room air Interpretation Pulse oximetry normal Time 1806 Re-Evaluation MDM Free Text MDM NotesFree Text MDM NotesPatient has improved and is back to baseline, pt reports that she feels better after her duoneb x3 treatments and solumedrol 125mg IVP. Pt chest xray clear, pthas proair inhaler at home but needs a refill. Pt will be given rx for prednisone for 4 more days. Pt encouraged to rest, increase oral fluids and stayaway from asthma triggers including smoke. Pt feels good enough to go home, pcp handout given and f/u with 2 them in 2 days, also gave pt pulmonary info )( Re-Evaluation/Progress #1Time of Re-Eval 1906)( Re-Eval Status ImprovedRe-Eval Resp/Chest Mild wheezingTreatment Summary Combined albut atrovent, Steroid therapyPlan Post Re-Eval Plan observe Re-Evaluation/Progress #2Time of Ev1929Re-Eval Status ImprovedRe-Eval Resp/Chest Breath sounds normal, No wheezingTreatment Summary Combined albut atrovent (x3), Steroid therapyPain Re-Evaluation Denies pain ED CourseMedication(s) OrderedMedication(s) Ordered:Autonomic Drugs Sig/[place] Start time Last Medication Dose Route Stop Time Status Admin Albuterol/Ipratropium 3 ML Q15M 06/13 1814 DC 06/13 INH 06/13 184 182 Hormones And Synthetic Substit Sig/[place] Start time Last Medication Dose Route Stop Time Status Admin Methylprednisolone 125 MG X1ED STA 06/13 1806 DC 06/13 Sodium Succinate IV 06/13 180 181 Differential DiagnosisDifferential Diagnosis Airway obstruction, Allergic reaction, Anxiety, Asthma, Bronchitis, Foreign body airway, Pneumonia Patient Discharge Departure Vital Signs/ConditionVital Signs Condition Stable Clinical ImpressionClinical ImpressionPrimary Impression: Asthma exacerbation Disposition DecisionDischarge )( Discharged to Home Yes )( Time 1929 )( Date 06/13/18 Discharge/Care PlanCounseled Regarding Diagnosis, Imaging studies, Prescriptions, Need for follow-up, When to return to EDPrescriptionsproair, prednisonePrescriptions Reviewed Risks, Benefits, Alternative treatment Discharge NoteI have spoken with the patient and/or caregivers. I have explained the patient'scondition, diagnoses and treatment plan based on the information available to meat this time. I have answered the patient's and/or caregiver's questions and addressed any concerns. The patient and/or caregivers have as good an understanding of the patient's diagnosis, condition and treatment plan as can beexpected at this point. The vital signs have been stable. The patient's condition is stable and appropriate for discharge from the emergency department. The patient will pursue further outpatient evaluation with the primary care physician or other designated or consulting physician as outlined in the discharge instructions. The patient and/or caregivers are agreeable to this planof care and follow-up instructions have been explained in detail. The patient and/or caregivers have received these instructions in written format and have expressed an understanding of the discharge instructions. The patient and/or caregivers are aware that any significant change in condition or worsening of symptoms should prompt an immediate return to this or the closest emergency department or a call to 911. Quality MeasuresBP F/U for HTN Referred for BP f/u < 4wkSmoking Cessation Screened, non userTobacco Screening/Cessation 18 years or older, Denies tobacco use Carmina Cisneros 06/14/18 1024:Physical Exam Vital SignsVital SignsFirst Documented: Result Date Time Pulse Ox 97 06/13 1806 B/P 125/79 06/13 180 B/P Mean 94.3 06/13 1806 Temp 97.5 06/13 180 Pulse 84 06/13 180 Resp 20 06/13 180 O2 Delivery Nasal cannula 06/13 182 O2 Flow Rate 2.308205 06/13 182 Last Documented: Result Date Time Pulse Ox 98 06/13 192 B/P 154/65 06/14 1927 B/P Mean 94.7 06/14 1927 Temp 97.9 06/13 192 Pulse 94 06/13 192 Resp 18 06/13 192 O2 Delivery Nasal cannula 06/13 182 O2 Flow Rate 4.245041 06/13 1825 Interpretation Diagnostics Lab Results InterpretationResults Re-Evaluation MDM ED CourseMedication(s) Ordered Patient Discharge Departure Vital Signs/ConditionVital SignsFirst Documented: Result Date Time Pulse Ox 97 06/13 1807 B/P 125/79 06/13 1807 B/P Mean 94.3 06/13 1806 Temp 97.5 06/13 180 Pulse 84 06/13 1807 Resp 20 04/21 1807 O2 Delivery Nasal cannula 06/13 1822 O2 Flow Rate 2.617031 06/13 1822 Last Documented: Result Date Time Pulse Ox 98 06/14 1927 B/P 154/65 06/14 1927 B/P Mean 94.7 06/14 1927 Temp 97.9 06/14 1927 Pulse 94 06/14 1927 Resp 18 06/14 1927 O2 Delivery Nasal cannula 06/13 1824 O2 Flow Rate 4.338976 06/13 1824 All vital signs available at the time of this entry have been reviewed. Supervising Physician Note MidLv Saw Pt AloneI have reviewed the PA/EYEGLASS FRAME TRUER's note and plan of care. I was available for consultation as needed at all times during the patient's visit in the emergency department. I agree with the clinical impression, plan and disposition. Roland Catalan 06/15/18 0041:HPI-Dyspnea/Wheezing GeneralInitial Greet Date/Time 06/13/181806 Physical Exam Vital SignsVital Signs Interpretation Diagnostics Lab Results InterpretationResults Patient Discharge Departure Vital Signs/ConditionVital Signs Supervising Physician Note MidLv Saw Pt AloneI have reviewed the PA/EYEGLASS FRAME TRUER's note and plan of care. I was available for consultation as needed at all times during the patient's visit in the emergency department. I agree with the clinical impression, plan and disposition. at 1024 at 1610RPT #:[id number] OF REPORTEDEmergen department [id number]:18:00C.[id number] for patient [id number]:43:14 [facility] 2018-06-13 18:18:00 [id number] [id number]:18:00 [facility])EMERGENCY PROVIDER REPORTREPORT#:[id number] REPORT STATUS: SignedDATE:06/13/18 TIME: 1817 PATIENT: TANIKA LAWRENCE UNIT #: [id number]#: [id number] ROOM/BED:AGE: 17 SEX: F PCP PHYS: DOES_NOT KNOWSERVICE AUTHOR: Silvana Anthony EYEGLASS FRAME TRUER * ALL edits or amendments must be made on the electronic/computer document * Silvana Anthony 06/13/181817:HPI-Dyspnea/Wheezing GeneralConfirmed Patient YesPCPnone PresentationChief Complaint Asthma attack, Shortness of breath, WheezingHx Obtained From Patient)( Sudden in Onset? YesOnset Occurred YesterdaySymptom Duration ConstantProgression since Onset Constant, Rapidly worseningCaused by No trauma by historyLocation NoneSeverity: Current No pain currentlyAssociated withDenies: Anxiety, Calf pain, Chest pain, Cough, Diaphoresis, Fever, Hemoptysis, Leg pain, Leg swelling, Loss of consciousness, Nasal congestion, Nausea, Numbness, perioral, Numbness, hands, Numbness, feet, Sore throat, Vomiting, Wheeze. ContextRecent Healthcare No recent doctor visit, No recent hospitalizationPregnancy/Sexual Hx Last Menstrual Period 05/07/18 Free Text HPI NotesFree Text HPI Notes17 year old female presents to the ER with her plans of having an asthmaattack since last night. Pt reports that last night she started coughing and wheezing and used her pro air inhaler and it seem to help but this morning the wheezing got worse and the inhaler did not help. Patient presents to the ER in moderate distress, patient is able to speak in complete sentences although getsshort of breath easy. Patient denies any recent travel, fever, nausea, vomiting,diarrhea or chest pain. Pt does not have a nebulizer at the house just her inhaler only, pt has no pcp and hasn't seen a specialist since she was a child. Risk-Dyspnea/Wheezing Risk StratificationCoronary Artery Disease Risk factors reviewed, Diabetes mellitus (pre) Review of Systems Focused Review of SystemsConstitutionalDenies: Chills, Fever, Lethargy. Ears/Nose/ThroatDenies: Earache bilat, Nasal congestion, Sore throat. RespiratoryReports: Shortness of breath, Wheezing. Denies: Cough, non-productive. CardiovascularDenies: Chest pain, Syncope. MusculoskeletalDenies: Back pain, Extremity pain. SkinDenies: Diaphoresis, Rash. Allergy/ImmunDenies: Hives, Itching. Additional Review of SystemsGIDenies: Abdominal pain, Constipation, Diarrhea, Rectal pain, Vomiting. Past Medical History - AdultStated Complaint SHORTNESS OF BREATHAllergiesCoded Allergies:No Known Allergies (02/20/16) Review of Nursing Notes Rev avail, and agreePast Medical History:Reports: Asthma, Diabetes mellitus (pre-dm), Seizure disorder. Alcohol Use Denies EtOH useDrug Use Denies recreational drugsSmoking status for patients 13 years old or older: Never SmokerOther Social History Local resident, Good social supportOccupationstudentAmbulatory Status Independent Physical Exam Vital SignsVital Signs Review of Vital Signs Reviewed Focused PEGeneral/Const General/Const Awake, AlertEars/Nose/Throat Ears/Nose/Throat Airway patent, Mucous membranes moist, Pharynx NLMS Neck Neck Atraumatic, Supple, No meningismus, Full range of motion, No swelling, Non-tender, No massesResp/Chest Respiratory/Chest Atraumatic, No rales, No rhonchi, No stridor, No chest tenderness, No chest wall deformity, No crepitus Resp Distress/Stridor Resp distress moderate, Speaks phrases. Negative: Speaks words only, Agonal respiration, Intubated. Wheezing/Retractions Wheeze insp/exp diffuse, Wheezing expiratory, Wheezing inspiratory, Wheezing moderate, Retractions mild. Negative: Nasal flaring. Cardiovascular Cardiovascular Heart rate NL, Regular rhythm, Heart sounds NL, Peripheral circulation NLAbdomen/GI Abdomen/GI Soft, Non-tender, No guarding, No reboundMS Back Back Inspection NL, Non-tender, No CVA tendernessMS Lower Extrem Lower Ext/Pelvis/MS Inspection NL, No swelling, Non-tender, No erythema, No deformity, Neurologic intact, No edemaSkin Skin Color NL, No rash, Warm, Dry, Turgor NLNeurologic Neurologic Oriented X3, Speech NL, No motor deficits, No sensory deficits Additional PEPsychiatric Psychiatric Affect NL, Mood NL, Not suicidal, Not homicidal, No hallucinations Interpretation Diagnostics Lab Results InterpretationResultsLaboratory Tests: 06/13 1822 Chemistry Beta HCG, Quant (0 - 4.9 IU/L) <5.0 Recent Impressions:RADIOLOGY - XR CHEST 1 V 06/13 1813 Report Impression - Status: SIGNED Entered: 06/13/20181831 Impression: 1. No radiographic evidence of acute cardiopulmonary disease. Impression By: Daljit Meredith MD Imaging StatementRadiographic studies reviewed and considered in the medical decision-making. Point of Care TestingPulse Oximetry Pulse Ox % 97 On: Room air Interpretation Pulse oximetry normal Time 1806 Re-Evaluation MDM Free Text MDM NotesFree Text MDM NotesPatient has improved and is back to baseline, pt reports that she feels better after her duoneb x3 treatments and solumedrol 125mg IVP. Pt chest xray clear, pthas proair inhaler at home but needs a refill. Pt will be given rx for prednisone for 4 more days. Pt encouraged to rest, increase oral fluids and stayaway from asthma triggers including smoke. Pt feels good enough to go home, pcp handout given and f/u with 2 them in 2 days, also gave pt pulmonary info )( Re-Evaluation/Progress #1Time of Re-Eval 1906)( Re-Eval Status ImprovedRe-Eval Resp/Chest Mild wheezingTreatment Summary Combined albut atrovent, Steroid therapyPlan Post Re-Eval Plan observe Re-Evaluation/Progress #2Time of Eval 1929Re-Eval Status ImprovedRe-Eval Resp/Chest Breath sounds normal, No wheezingTreatment Summary Combined albut atrovent (x3), Steroid therapyPain Re-Evaluation Denies pain ED CourseMedication(s) OrderedMedication(s) Ordered:Autonomic Drugs Sig/[place] Start time Last Medication Dose Route Stop Time Status Admin Albuterol/Ipratropium 3 ML Q15M 06/13 1814 DC 06/13 INH 06/13 184 182 Hormones And Synthetic Substit Sig/[place] Start time Last Medication Dose Route Stop Time Status Admin Methylprednisolone 125 MG X1ED STA 06/13 1806 DC 06/13 Sodium Succinate IV 06/13 180 181 Differential DiagnosisDifferential Diagnosis Airway obstruction, Allergic reaction, Anxiety, Asthma, Bronchitis, Foreign body airway, Pneumonia Patient Discharge Departure Vital Signs/ConditionVital Signs Condition Stable Clinical ImpressionClinical ImpressionPrimary Impression: Asthma exacerbation Disposition DecisionDischarge )( Discharged to Home Yes )( Time 1930 )( Date 06/13/18 Discharge/Care PlanCounseled Regarding Diagnosis, Imaging studies, Prescriptions, Need for follow-up, When to return to EDPrescriptionsproair, prednisonePrescriptions Reviewed Risks, Benefits, Alternative treatment Discharge NoteI have spoken with the patient and/or caregivers. I have explained the patient'scondition, diagnoses and treatment plan based on the information available to meat this time. I have answered the patient's and/or caregiver's questions and addressed any concerns. The patient and/or caregivers have as good an understanding of the patient's diagnosis, condition and treatment plan as can beexpected at this point. The vital signs have been stable. The patient's condition is stable and appropriate for discharge from the emergency department. The patient will pursue further outpatient evaluation with the primary care physician or other designated or consulting physician as outlined in the discharge instructions. The patient and/or caregivers are agreeable to this planof care and follow-up instructions have been explained in detail. The patient and/or caregivers have received these instructions in written format and have expressed an understanding of the discharge instructions. The patient and/or caregivers are aware that any significant change in condition or worsening of symptoms should prompt an immediate return to this or the closest emergency department or a call to 911. Quality MeasuresBP F/U for HTN Referred for BP f/u < 4wkSmoking Cessation Screened, non userTobacco Screening/Cessation 18 years or older, Denies tobacco use Carmina Cisneros 06/14/18 1024:Physical Exam Vital SignsVital SignsFirst Documented: Result Date Time Pulse Ox 97 06/13 1806 B/P 125/79 06/13 1806 B/P Mean 94.3 06/13 1806 Temp 97.5 06/13 1806 Pulse 84 06/13 1806 Resp 20 06/13 1806 O2 Delivery Nasal cannula 06/13 1822 O2 Flow Rate 2.557969 06/13 1822 Last Documented: Result Date Time Pulse Ox 98 06/14 1927 B/P 154/65 06/14 1927 B/P Mean 94.7 06/14 1927 Temp 97.9 06/14 1927 Pulse 94 06/14 1927 Resp 18 06/14 1927 O2 Delivery Nasal cannula 06/13 182 O2 Flow Rate 4.318834 06/13 182 Interpretation Diagnostics Lab Results InterpretationResults Re-Evaluation [facility] ED CourseMedication(s) Ordered Patient Discharge Departure Vital Signs/ConditionVital SignsFirst Documented: Result Date Time Pulse Ox 97 06/13 1806 B/P 125/79 06/13 1806 B/P Mean 94.3 06/13 180 Temp 97.5 06/13 1806 Pulse 84 06/13 180 Resp 20 06/13 180 O2 Delivery Nasal cannula 06/13 182 O2 Flow Rate 2.723645 06/13 1822 Last Documented: Result Date Time Pulse Ox 98 06/14 1927 B/P 154/65 06/14 1927 B/P Mean 94.7 06/14 1927 Temp 97.9 06/14 1927 Pulse 94 06/14 1927 Resp 18 06/14 1927 O2 Delivery Nasal cannula 06/13 1824 O2 Flow Rate 4.799665 06/13 1824 All vital signs available at the time of this entry have been reviewed. Supervising Physician Note MidLv Saw Pt AloneI have reviewed the PA/EYEGLASS FRAME TRUER's note and plan of care. I was available for consultation as needed at all times during the patient's visit in the emergency department. I agree with the clinical impression, plan and disposition. Roland Catalan 06/15/18 0041:HPI-Dyspnea/Wheezing GeneralInitial Greet Date/Time 06/13/181806 Physical Exam Vital SignsVital Signs Interpretation Diagnostics Lab Results InterpretationResults Patient Discharge Departure Vital Signs/ConditionVital Signs Supervising Physician Note MidLv Saw Pt AloneI have reviewed the PA/EYEGLASS FRAME TRUER's note and plan of care. I was available for consultation as needed at all times during the patient's visit in the emergency department. I agree with the clinical impression, plan and disposition. at 1024 at 1610 at 0042RPT #:[id number] OF REPORTFalls Community [facility] and [facility] department [id number]:18:00C.[id number] for patient [id number]:43:24 [facility] 2018-05-15 17:13:00 [id number]:13:00 [facility] REPORTREPORT#:[id number] REPORT STATUS: SignedDATE:05/15/18 TIME: 1713 PATIENT: TANIKA LAWRENCE UNIT #: [id number]#: [id number] ROOM/BED:AGE: 17 SEX: F PCP PHYS: DOES_NOT KNOWSERVICE AUTHOR: Juan David Jalloh * ALL edits or amendments must be made on the electronic/computer document * HPI-Ankle Prob/Inj GeneralConfirmed Patient YesPatient Type New patientInitial Greet Date/Time 05/15/18 1620 PresentationChief Complaint Injury R, Swelling RHx Obtained From PatientOnset Occurred TodaySymptom Duration Since onsetCaused by Fall on groundLocation Ankle RQuality Painful Free Text HPI NotesFree Text HPI Notes17 Y/O F presents to ED c/o sharp pain in right ankle after injuring it from fall while running after boyfriend. Pt has injured same ankle before. No other complaints elicited. Portions of this section were scribed by Violette Jones on 05/15/18 at 1727 Review of Systems ROS StatementsAll systems rev neg except as marked. Focused Review of SystemsConstitutionalDenies: Chills, Fever. MusculoskeletalReports: Extremity pain (r ankle), Extremity swelling (r ankle). SkinReports: Swelling (r ankle). Denies: Rash. NeurologicDenies: Dizziness, Headache. Additional Review of SystemsEyesDenies: Blurred bilat, Discharge bilat, Eye pain bilat. Ears/Nose/ThroatDenies: Ear drainage bilat, Ear ringing bilat, Hearing loss R. RespiratoryDenies: Pleuritic pain, Shortness of breath. CardiovascularDenies: Palpitations, Syncope. GIDenies: Diarrhea, Nausea, Vomiting. FemaleDenies: Flank pain, Pelvic pain. Portions of this section were scribed by Violette Jones on 05/15/18 at 1727 Past Medical History - AdultStated Complaint INJURY - ACCIDENTAllergiesCoded Allergies:No Known Allergies (02/20/16) Review of Nursing Notes Rev avail, and agreePt reports no significant: Past medical history, Past surgical history, Family historyAlcohol Use Denies EtOH useDrug Use Denies recreational drugsSmoking status for patients 13 years old or older: Never SmokerOther Social History Local resident, Good social support Portions of this section were scribed by Violette Jones on 05/15/18 at 1713 Physical Exam Vital SignsVital SignsFirst Documented: Result Date Time Pulse Ox 98 [...] 85 05/15 1626 Resp 18 05/15 1626 Review of Vital Signs Reviewed Focused PEGeneral/Const General/Const Awake, Alert, CooperativeMS Ankle/Foot Right Ankle Swelling present (to ATFL), Tenderness present (to ATFL), Tender lat ligaments. Negative: Tender medial ligaments, Tender lateral malleolus, Tender medial malleolus, Ecchymosis present, Erythema present, ROM reduced (painful), Achilles deficit, Anterior drawer test pos, Deformity present, Neuro deficit present. Skin Skin Color NL, Warm, DryNeurologic Neurologic Oriented X3, Speech NL, No motor deficits, No sensory deficits Additional PEMS Head Head Atraumatic, NormocephalicEyes Eyes No periorbital redness, No periorbital swelling, No photophobia, EyelidsNLEars/Nose/Throat Ears/Nose/Throat Atraumatic, Airway patent, Mucous membranes moist, No facialswellingMS Neck Neck Atraumatic, Full range of motion, No swellingResp/Chest Respiratory/Chest Breath sounds NL, Breath sounds = bilat, No respiratory distress, No rales, No rhonchi, No wheezing, No chest tendernessCardiovascular Cardiovascular Heart rate NL, Regular rhythm, Heart sounds NL, No gallop, No murmurs, No rubs, Cap refill not delayed, Peripheral circulation NLMS Back Back Full range of motion, Painless range of motionMS Upper Extrem Upper Extremity/MS No swelling, No erythema, No deformityMS Lower Extrem Lower Ext/Pelvis/MS No swelling, No erythema, No deformityPsychiatric Psychiatric Affect NL, Mood NL, Judgment/insight NL, Thought content NL Portions of this section were scribed by Violette Jones on 05/15/18 at 1726 Interpretation Diagnostics Lab Results InterpretationResultsRecent Impressions:RADIOLOGY - XR ANKLE 3 + V RT 05/15 1642 Report Impression - Status: SIGNED Entered: 05/15/2018 1717 IMPRESSION:1. Soft tissue swelling, no acute fracture.2. Benign-appearing distal tibial bone lesion.Impression By: Umair Holm MD Imaging StatementRadiographic studies reviewed and considered in the medical decision-making. Point of Care TestingPulse Oximetry Pulse Ox % 98 On: Room air Interpretation Interpreted by me, Pulse oximetry normal Time 1626 Portions of this section were scribed by Violette Jones on 05/15/18 at 1717 Re-Evaluation MDM Free Text MDM NotesFree Text MDM [id number] states she had crutches and velcro splint at home and denies splint and crutches from ED. ED CourseMedication(s) OrderedMedication(s) Ordered:Central Nervous System Agents Sig/[place] Start time Last Medication Dose Route Stop Time Status Admin Hydrocodone Bitart/ 1 TAB X1ED STA 05/15 1627 DC 05/15 Acetaminophen PO 05/15 1628 1631 Portions of this section were scribed by Violette Jones on 05/15/18 at 1717 Patient Discharge Departure Vital Signs/ConditionVital SignsFirst Documented: Result Date Time Pulse Ox 98 05/15 1626 B/P 113/58 05/15 162 B/P Mean 76 05/15 162 O2 Delivery Room air 05/15 1626 Temp 36.9 05/15 162 Pulse 85 05/15 1626 Resp 18 05/15 162 Last Documented: Result Date Time Pulse Ox 98 05/15 1625 B/P 113/58 05/15 1625 B/P Mean 76 05/15 1625 O2 Delivery Room air 05/15 1625 Temp 36.9 05/15 162 Pulse 85 05/15 1626 Resp 18 05/15 1626 All vital signs available at the time of this entry have been reviewed. Condition Stable Clinical ImpressionClinical ImpressionPrimary Impression: Right ankle sprain Disposition DecisionDischarge )( Discharged to Home Yes )( Time 1725 )( Date 05/15/18 Discharge/Care PlanCounseled Regarding Diagnosis, Imaging studies, Prescriptions, Need for follow-up, When to return to EDPrescriptionsmotrin tramadolPrescriptions Reviewed Risks, Benefits, Alternative treatment Discharge NoteI have spoken with the patient and/or caregivers. I have explained the patient'scondition, diagnoses and treatment plan based on the information available to meat this time. I have answered the patient's and/or caregiver's questions and addressed any concerns. The patient and/or caregivers have as good an understanding of the patient's diagnosis, condition and treatment plan as can beexpected at this point. The vital signs have been stable. The patient's condition is stable and appropriate for discharge from the emergency department. The patient will pursue further outpatient evaluation with the primary care physician or other designated or consulting physician as outlined in the discharge instructions. The patient and/or caregivers are agreeable to this planof care and follow-up instructions have been explained in detail. The patient and/or caregivers have received these instructions in written format and have expressed an understanding of the discharge instructions. The patient and/or caregivers are aware that any significant change in condition or worsening of symptoms should prompt an immediate return to this or the closest emergency department or a call to 911. Supervising Physician Note Scribe Violette Appiah, 05/15/181712, scribing for and in the presence of Juan David Jalloh.Signed By: Violette Jnoes, 05/15/181712 Provider Scribed StatementI personally performed the services described in this documentation and reviewedthe documentation that was dictated to the scribe(s) in my presence, and it accurately records my words and actions. Juan David Jalloh, 05/16/18 Portions of this section were scribed by Violette Jones on 05/15/18 at 1717 at 1029RPT #:[id number] OF REPORTFalls Community Hospital and Clinic department [id number]:13:00C.[id number] for patient [id number]:29:53 [facility] 2018-05-15 17:13:00 [id number]:13:00 [facility] PROVID[facility] REPORTREPORT#:[id number] REPORT STATUS: SignedDATE:05/15/18 TIME: 1712 PATIENT: TANIKA LAWRENCE UNIT #: [id number]#: [id number] ROOM/BED:AGE: 17 SEX: F PCP PHYS: DOES_NOT KNOWSERVICE AUTHOR: Juan David Jalloh * ALL edits or amendments must be made on the electronic/computer document * Juan David Jalloh 05/15/18 1713:HPI-Ankle Prob/Inj GeneralConfirmed Patient YesPatient Type New patient PresentationChief Complaint Injury R, Swelling RHx Obtained From PatientOnset Occurred TodaySymptom Duration Since onsetCaused by Fall on groundLocation Ankle RQuality Painful Free Text HPI NotesFree Text HPI Notes17 Y/O F presents to ED c/o sharp pain in right ankle after injuring it from fall while running after boyfriend. Pt has injured same ankle before. No other complaints elicited. Portions of this section were scribed by Violette Jones on 05/15/18 at 1727 Review of Systems ROS StatementsAll systems rev neg except as marked. Focused Review of SystemsConstitutionalDenies: Chills, Fever. MusculoskeletalReports: Extremity pain (r ankle), Extremity swelling (r ankle). SkinReports: Swelling (r ankle). Denies: Rash. NeurologicDenies: Dizziness, Headache. Additional Review of SystemsEyesDenies: Blurred bilat, Discharge bilat, Eye pain bilat. Ears/Nose/ThroatDenies: Ear drainage bilat, Ear ringing bilat, Hearing loss R. RespiratoryDenies: Pleuritic pain, Shortness of breath. CardiovascularDenies: Palpitations, Syncope. GIDenies: Diarrhea, Nausea, Vomiting. FemaleDenies: Flank pain, Pelvic pain. Portions of this section were scribed by Violette Jones on 05/15/18 at 1727 Past Medical History - AdultStated Complaint INJURY - ACCIDENTAllergiesCoded Allergies:No Known Allergies (02/20/16) Review of Nursing Notes Rev avail, and agreePt reports no significant: Past medical history, Past surgical history, Family historyAlcohol Use Denies EtOH useDrug Use Denies recreational drugsSmoking status for patients 13 years old or older: Never SmokerOther Social History Local resident, Good social support Portions of this section were scribed by Violette Jones on 05/15/18 at 1713 Physical Exam Vital SignsVital SignsFirst Documented: Result Date Time Pulse Ox 98 [...] 85 05/15 1626 Resp 18 05/15 1626 Review of Vital Signs Reviewed Focused PEGeneral/Const General/Const Awake, Alert, CooperativeMS Ankle/Foot Right Ankle Swelling present (to ATFL), Tenderness present (to ATFL), Tender lat ligaments. Negative: Tender medial ligaments, Tender lateral malleolus, Tender medial malleolus, Ecchymosis present, Erythema present, ROM reduced (painful), Achilles deficit, Anterior drawer test pos, Deformity present, Neuro deficit present. Skin Skin Color NL, Warm, DryNeurologic Neurologic Oriented X3, Speech NL, No motor deficits, No sensory deficits Additional PEMS Head Head Atraumatic, NormocephalicEyes Eyes No periorbital redness, No periorbital swelling, No photophobia, EyelidsNLEars/Nose/Throat Ears/Nose/Throat Atraumatic, Airway patent, Mucous membranes moist, No facialswellingMS Neck Neck Atraumatic, Full range of motion, No swellingResp/Chest Respiratory/Chest Breath sounds NL, Breath sounds = bilat, No respiratory distress, No rales, No rhonchi, No wheezing, No chest tendernessCardiovascular Cardiovascular Heart rate NL, Regular rhythm, Heart sounds NL, No gallop, No murmurs, No rubs, Cap refill not delayed, Peripheral circulation NLMS Back Back Full range of motion, Painless range of motionMS Upper Extrem Upper Extremity/MS No swelling, No erythema, No deformityMS Lower Extrem Lower Ext/Pelvis/MS No swelling, No erythema, No deformityPsychiatric Psychiatric Affect NL, Mood NL, Judgment/insight NL, Thought content NL Portions of this section were scribed by Violette Jones on 05/15/18 at 1726 Interpretation Diagnostics Lab Results InterpretationResultsRecent Impressions:RADIOLOGY - XR ANKLE 3 + V RT 05/15 1642 Report Impression - Status: SIGNED Entered: 05/15/2018 1717 IMPRESSION:1. Soft tissue swelling, no acute fracture.2. Benign-appearing distal tibial bone lesion.Impression By: Umair Holm MD Imaging StatementRadiographic studies reviewed and considered in the medical decision-making. Point of Care TestingPulse Oximetry Pulse Ox % 98 On: Room air Interpretation Interpreted by me, Pulse oximetry normal Time 1626 Portions of this section were scribed by Violette Jones on 05/15/18 at 1717 Re-Evaluation MDM Free Text MDM NotesFree Text MDM [id number] states she had crutches and velcro splint at home and denies splint and crutches from ED. ED CourseMedication(s) OrderedMedication(s) Ordered:Central Nervous System Agents Sig/[place] Start time Last Medication Dose Route Stop Time Status Admin Hydrocodone Bitart/ 1 TAB X1ED STA 05/15 1627 DC 05/15 Acetaminophen PO 05/15 1628 1631 Portions of this section were scribed by Violette Jones on 05/15/18 at 1717 Patient Discharge Departure Vital Signs/ConditionVital SignsFirst Documented: Result Date Time Pulse Ox 98 [...] signs available at the time of this entry have been reviewed. Condition Stable Clinical ImpressionClinical ImpressionPrimary Impression: Right ankle sprain Disposition DecisionDischarge )( Discharged to Home Yes )( Time 1725 )( Date 05/15/18 Discharge/Care PlanCounseled Regarding Diagnosis, Imaging studies, Prescriptions, Need for follow-up, When to return to EDPrescriptionsmotrin tramadolPrescriptions Reviewed Risks, Benefits, Alternative treatment Discharge NoteI have spoken with the patient and/or caregivers. I have explained the patient'scondition, diagnoses and treatment plan based on the information available to meat this time. I have answered the patient's and/or caregiver's questions and addressed any concerns. The patient and/or caregivers have as good an understanding of the patient's diagnosis, condition and treatment plan as can beexpected at this point. The vital signs have been stable. The patient's condition is stable and appropriate for discharge from the emergency department. The patient will pursue further outpatient evaluation with the primary care physician or other designated or consulting physician as outlined in the discharge instructions. The patient and/or caregivers are agreeable to this planof care and follow-up instructions have been explained in detail. The patient and/or caregivers have received these instructions in written format and have expressed an understanding of the discharge instructions. The patient and/or caregivers are aware that any significant change in condition or worsening of symptoms should prompt an immediate return to this or the closest emergency department or a call to 911. Supervising Physician Note Scribe StatementSViolette garza, 05/15/18 1713, scribing for and in the presence of Juan David Jalloh.Signed By: Violette Jones, 05/15/18 1713 Provider Scribed StatementI personally performed the services described in this documentation and reviewedthe documentation that was dictated to the scribe(s) in my presence, and it accurately records my words and actions. Juan David Jalloh, 05/16/18 Portions of this section were scribed by Violette Jones on 05/15/18 at 1717 Red De La Garza 05/19/18 0303:HPI-Ankle Prob/Inj GeneralInitial Greet Date/Time 05/15/18 1620 Physical Exam Vital SignsVital Signs Interpretation Diagnostics Lab Results InterpretationResults Patient Discharge Departure Vital Signs/ConditionVital Signs Supervising Physician Note MidLv Saw Pt AloneI have reviewed the PA/EYEGLASS FRAME TRUER's note and plan of care. I was available for consultation as needed at all times during the patient's visit in the emergency department. at 1029 at 0304RPT #:[id number] OF REPORTFalls Community Hospital and Clinic department [id number]:13:00C.[id number] for patient [id number]:14 [id number]
[2023-04-03 00:41] LABS: Absolute Lymphocytes (CBC) 1.9 K/uL (0.7-4.9); Hematocrit 27.7 % (36.0-45.0); Lymphocytes % 19.6 % (15.3-44.8); MCV 61.9 fL (80-100); MPV 7.3 fL (7.6-11.3); Platelets 317 thou/uL (152-406); RBC Red Blood Cell Count 4.48 M/uL (3.86-4.86)
[2023-04-03 00:51] LABS: Protime INR 0.98
[2023-04-03 01:04] LABS: ALT/SGPT 22 U/L (13-56); AST/SGOT 20 U/L (15-37); Albumin 2.6 g/dL (3.4-5.0); Alkaline Phosphatase 177 U/L (45-117); BUN Blood Urea Nitrogen 5 mg/dL (7-18); Bicarbonate 23 mEq/L (21-32); Bilirubin Direct 0.1 mg/dL (0-0.2); Bilirubin Indirect, Calculated 0.4 mg/dL (0.2-0.8); Bilirubin Total 0.5 mg/dL (0.2-1.0); Glomerular Filtration Rate 128 ml/min (=/>90); Glucose Level 107 mg/dL (74-106); NT PRO-BNP 13 pg/mL (<125); Potassium 3.3 mEq/L (3.5-5.1); Protein, Total 6.7 g/dL (6.4-8.2); Sodium Level 136 mEq/L (136-145)
[2023-04-03] MEDS ORDERED: NA CHLORIDE 0.9% 1,000 ML ONE (01:04)
[2023-04-03] MEDS ORDERED: Magnesium Sulfate 2gm IVPB 2 G/50 ML BAG IV ONE (01:04)
[2023-04-03 01:07] LABS: Troponin High Sensitivity < 3.0 pg/mL (<58.9)
[2023-04-03 01:21] LABS: Specific Gravity 1.005 (1.005-1.030); Urine Bacteria <20 /HPF (<20); Urine Bilirubin NEGATIVE (Negative); Urine Blood Negative (Negative); Urine Clarity Clear (Clear); Urine Color Light-Yellow (Yellow); Urine Glucose NEGATIVE (Negative); Urine Protein NEGATIVE (Negative); Urine RBC <5 /HPF (None Seen); Urine Urobilinogen Normal (Normal)
--- NOTE | 2023-04-03 01:39 | EDPHYS ---
Physician Documentation [facility] Name: Tanika Lawrence Age: 22 yrs Sex: Female : 2000 Arrival Date: 04/02/2023 Time: 23:44 Bed 1 Private MD: ED Physician Catrina Angeles HPI: 04/03 00:27 This 22 yrs old Female presents to ER via Ambulatory with complaints of Blurred Vision, sp3 High Blood Pressure, pt is 35 weeks preg. 00:27 22-year-old female with a history of autoimmune disease, hypertension, prior sp3 preeclampsia now at A1 at 35 weeks and 1 day presents with chief complaint headache, blurred vision for approximately 1 hour prior to arrival. 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 Patient states mild abdominal cramping without contractions, vaginal bleeding or discharge or back pain. She denies fever, URI symptoms, chest pain, shortness of breath, rash, or any other symptoms at this time.. 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 - Social history:: Smoking status: Patient denies any tobacco usage or history of. ROS: 00:31 Constitutional: Negative for fever, chills, and weight loss, ENT: Negative for injury, sp3 pain, and discharge, Neck: Negative for injury, pain, and swelling, Cardiovascular: Negative for chest pain, palpitations, and edema, Respiratory: Negative for shortness of breath, cough, wheezing, and pleuritic chest pain, Abdomen/GI: Negative for abdominal pain, nausea, vomiting, diarrhea, and constipation, Back: Negative for injury and pain, MS/Extremity: Negative for injury and deformity, Skin: Negative for injury, rash, and discoloration, Psych: Negative for depression, anxiety, suicide ideation, homicidal ideation, and hallucinations, Allergy/Immunology: Negative for hives, rash, and allergies, Endocrine: Negative for neck swelling, polydipsia, polyuria, polyphagia, and marked weight changes, Hematologic/Lymphatic: Negative for swollen nodes, abnormal bleeding, and unusual bruising, 00:31 All other systems are negative, Exam: 00:32 Constitutional: This is a well developed, well nourished patient who is awake, alert, sp3 and in no acute distress. Head/Face: Normocephalic, atraumatic. Eyes: Pupils equal round and reactive to light, extra-ocular motions intact. Lids and lashes normal. Conjunctiva and sclera are non-icteric and not injected. Cornea within normal limits. Periorbital areas with no swelling, redness, or edema. ENT: Nares patent. No nasal discharge, no septal abnormalities noted. External auditory canals are clear. Oropharynx with no redness, swelling, or masses, exudates, or evidence of obstruction, uvula midline. Mucous membranes moist. Neck: Trachea midline, no thyromegaly or masses palpated, and no cervical lymphadenopathy. Supple, full range of motion without nuchal rigidity, or vertebral point tenderness. No Meningismus. Chest/axilla: Normal chest wall appearance and motion. Nontender with no deformity. No lesions are appreciated. Cardiovascular: Regular rate and rhythm with a normal S1 and S2. No gallops, murmurs, or rubs. Normal PMI, no JVD. No pulse deficits. Respiratory: Lungs have equal breath sounds bilaterally, clear to auscultation and percussion. No rales, rhonchi or wheezes noted. No increased work of breathing, no retractions or nasal flaring. Abdomen/GI: Soft, non-tender, with normal bowel sounds. No distension or tympany. No guarding or rebound. No evidence of tenderness throughout. Back: No spinal tenderness. No costovertebral tenderness. Full range of motion. Skin: Warm, dry with normal turgor. Normal color with no rashes, no lesions, and no evidence of cellulitis. MS/ Extremity: Pulses equal, no cyanosis. Neurovascular intact. Full, normal range of motion. Neuro: Awake and alert, GCS 15, oriented to person, place, time, and situation. Cranial nerves II-XII grossly intact. Motor strength 5/5 in all extremities. Sensory grossly intact. Cerebellar exam normal. Normal gait. Psych: Awake, alert, with orientation to person, place and time. Behavior, mood, and affect are within normal limits. 01:21 ECG was reviewed by the Attending Physician. EKG demonstrates normal sinus rhythm at 84 sp3 bpm with normal intervals, normal QRS, normal axis, normal ST/T-segment's without evidence of acute ischemia. Vital Signs: 00:01 BP 128 / 74; Pulse 125; Resp 18 S; Temp 98.2; Pulse Ox 99% on R/A; Weight 68.04 kg (R); cm10 Height 4 ft. 11 in. ; Pain 6/10; 01:11 BP 120 / 76; Pulse 92; Resp 17 S; Pulse Ox 100% on R/A; lg3 02:17 BP 116 / 78; Pulse 86; Pulse Ox 100% on R/A; ap3 00:01 Body Mass Index 30.30 (68.04 kg, 149.86 cm) cm10 00:01 Pain Scale: Adult cm10 MDM: 00:10 Patient medically screened. sp3 00:32 Data reviewed: vital signs, nurses notes, old medical records, lab test result(s), EKG, sp3 radiologic studies. ED course: 22-year-old female now at 35 weeks with preeclampsia symptoms including headache and blurred vision. Workup will include ultrasound, urinalysis assessing for protein, laboratory values and we will administer magnesium and normal saline with gentle hydration given her heart rate while monitoring blood pressure. Patient is currently stable and we will likely transfer her to [facility] for observation.. 01:36 ED course: Discussed with Dr. Cleveland at [facility] who will accept this patient. We sp3 will put her on a magnesium drip continuous and transfer her.. 04/03 00:12 Order name: Basic Metabolic Panel; Complete Time: : sp3 04/03 00:12 Order name: CBC with Diff; Complete Time: 00:59 sp3 04/03 00:12 Order name: LFT's; Complete Time: : sp3 04/03 00:12 Order name: Magnesium; Complete Time: sp3 04/03 00:12 Order name: NT PRO-BNP; Complete Time: : sp3 04/03 00:12 Order name: PT-INR; Complete Time: 00:59 sp3 04/03 00:12 Order name: Troponin HS; Complete Time: : sp3 04/03 00:12 Order name: UAM; Complete Time: :22 sp3 04/03 00:12 Order name: US OB Limited sp3 04/03 00:12 Order name: EKG; Complete Time: 00:12 sp3 04/03 00:12 Order name: Cardiac monitoring; Complete Time: 02:05 sp3 04/03 00:12 Order name: EKG - Nurse/Tech; Complete Time: 01:17 sp3 04/03 00:12 Order name: IV Saline Lock; Complete Time: 00:36 sp3 04/03 00:12 Order name: Labs collected and sent; Complete Time: 00:36 sp3 04/03 00:12 Order name: O2 Per Protocol; Complete Time: 00:36 sp3 04/03 00:12 Order name: O2 Sat Monitoring; Complete Time: 00:36 sp3 Administered Medications: 01:14 Drug: NS 0.9% IV 1000 ml IV at 1 bolus Per protocol; 1000 mL bolus Route: IV; Rate: 1 ap3 bolus; Site: right antecubital; 02:18 Follow up: IV Status: Completed infusion; IV Intake: 1000ml ap3 01:14 Drug: Magnesium Sulfate IVPB 2 grams IVPB once over 2 hrs Route: IVPB; Infused Over: 2 ap3 hrs; Site: right antecubital; 02:05 Follow up: IV Status: Completed infusion; IV Intake: 50ml ap3 01:52 Drug: Magnesium Sulfate IVPB 4 grams IVPB bolus Route: IVPB; Site: right antecubital; ap3 02:05 Follow up: IV Status: Completed infusion; IV Intake: 100ml ap3 02:00 Not Given (error): magnesium sulfate2 mg/hr IVPB continuous over 2 hrs sp3 02:05 Drug: Magnesium Sulfate IVPB 2000 mg/hr IVPB continuous Route: IVPB; Site: right ap3 antecubital; 02:18 Follow up: IV Status: Infusion continued upon transfer ap3 Disposition Summary: 04/03/23 01:38 Transfer Ordered Notes: Transfer Location: [facility]-System sp3 Reason: Higher level of care sp3 Condition: Stable sp3 Problem: an acute exacerbation sp3 Symptoms: have worsened sp3 Accepting Physician: Dr. Cleveland(04/03/23 02:19) ap3 Diagnosis - Preeclampsia, headache, blurry vision sp3 Discharge Instructions: - Discharge Summary Sheet ap3 Forms: - SBAR form ap3 - Medication Reconciliation Form sp3 Signatures: Dispatcher [employer] Latrice Padgett RN RN ap3 Catrina Angeles MD MD sp3 Madison Robert RN RN cm10 Corrections: (The following items were deleted from the chart) 02:19 01:38 Dr. Cleveland sp3 ap3
--- NOTE | 2023-04-03 01:39 | ER ---
Nurse's Notes [facility] Name: Tanika Lawrence Age: 22 yrs Sex: Female : 2000 Arrival Date: 04/02/2023 Time: 23:44 Bed 1 Private MD: Diagnosis: Preeclampsia, headache, blurry vision Presentation: 04/03 00:01 Chief complaint: Patient states: Took blood pressure at home and BP was 158/99. Pt cm10 reports that she is having a headache and blurred vision. Currently 35 weeks . . Pt reports having pre-eclampsia with last . Coronavirus screen: Vaccine status: Patient reports receiving the 2nd dose of the covid vaccine. Client denies travel out of the [place] in the last 14 days. Ebola Screen: Patient denies travel to an Ebola-affected area in the 21 days before illness onset. No symptoms or risks identified at this time. Initial Sepsis Screen: Does the patient meet any 2 criteria? No. Patient's initial sepsis screen is negative. Does the patient have a suspected source of infection? No. Patient's initial sepsis screen is negative. Risk Assessment: Do you want to hurt yourself or someone else? Patient reports no desire to harm self or others. Onset of symptoms was April 03, 2023. 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 - Social history:: Smoking status: Patient denies any tobacco usage or history of. Screenin:05 [facility] ED Fall Risk Assessment (Adult) History of falling in the last 3 months, jj7 including since admission No falls in past 3 months (0 pts) Confusion or Disorientation No (0 pts) Intoxicated or Sedated No (0 pts) Impaired Gait No (0 pts) Mobility Assist Device Used No (0 pt) Altered Elimination No (0 pt) Score/Fall Risk Level 0 - 2 = Low Risk Oriented to surroundings, Maintained a safe environment, Educated pt \T\ family on fall prevention, incl call for assistance when getting out of bed. Abuse screen: Denies threats or abuse. Nutritional screening: No deficits noted. Tuberculosis screening: No symptoms or risk factors identified. Assessment: 00:05 General: Appears in no apparent distress. comfortable, Behavior is calm, cooperative, jj7 appropriate for age. Pain: Denies pain. Neuro: Reports dizziness, headache. GI: GI: Abdomen is round PT 35 WKS . 01:53 Reassessment: REPORT GIVEN TO TIANNA STALLWORTH AT [facility]. jj7 Vital Signs: 00:01 BP 128 / 74; Pulse 125; Resp 18 S; Temp 98.2; Pulse Ox 99% on R/A; Weight 68.04 kg (R); cm10 Height 4 ft. 11 in. ; Pain 6/10; 01:11 BP 120 / 76; Pulse 92; Resp 17 S; Pulse Ox 100% on R/A; lg3 02:17 BP 116 / 78; Pulse 86; Pulse Ox 100% on R/A; ap3 00:01 Body Mass Index 30.30 (68.04 kg, 149.86 cm) cm10 00:01 Pain Scale: Adult cm10 ED Course: 04/02 23:49 Patient arrived in ED. gm2 23:57 Catrina Angeles MD is Attending Physician. sp3 04/03 00:03 Triage completed. cm10 00:03 Arm band placed on Patient placed in an exam room, on a stretcher. cm10 00:05 Patient has correct armband on for positive identification. Bed in low position. Call jj7 light in reach. Side rails up X 1. Adult w/ patient. Warm blanket given. 00:30 Inserted saline lock: 20 gauge in right antecubital area, using aseptic technique. jj7 Blood collected. 00:36 Troponin HS Sent. jj7 00:36 PT-INR Sent. jj7 00:36 NT PRO-BNP Sent. jj7 00:36 Magnesium Sent. jj7 00:36 LFT's Sent. jj7 00:36 CBC with Diff Sent. jj7 00:36 Basic Metabolic Panel Sent. jj7 00:36 UAM Sent. jj7 01:04 US OB Limited In Process Unspecified. EDMS 01:17 UAM Sent. lg3 01:53 No provider procedures requiring assistance completed. jj7 02:04 Latrice Drummond, RN is Primary Nurse. ap3 02:17 Provided Education on: need for transfer. ap3 02:17 Patient transferred, IV remains in place. ap3 02:23 contacted catherine with [facility] \T\[id number]. Phone was transferred to Dr. Angeles. Pt accepted by carie Frost \T\ 0133. Pt will go to [facility] \T\ D. Number for nurse to nurse report [phone]. Catherine Granger gave admin approval \T\ 0134. Administered Medications: 01:14 Drug: NS 0.9% IV 1000 ml IV at 1 bolus Per protocol; 1000 mL bolus Route: IV; Rate: 1 ap3 bolus; Site: right antecubital; 02:18 Follow up: IV Status: Completed infusion; IV Intake: 1000ml ap3 01:14 Drug: Magnesium Sulfate IVPB 2 grams IVPB once over 2 hrs Route: IVPB; Infused Over: 2 ap3 hrs; Site: right antecubital; 02:05 Follow up: IV Status: Completed infusion; IV Intake: 50ml ap3 01:52 Drug: Magnesium Sulfate IVPB 4 grams IVPB bolus Route: IVPB; Site: right antecubital; ap3 02:05 Follow up: IV Status: Completed infusion; IV Intake: 100ml ap3 02:00 Not Given (error): magnesium sulfate2 mg/hr IVPB continuous over 2 hrs sp3 02:05 Drug: Magnesium Sulfate IVPB 2000 mg/hr IVPB continuous Route: IVPB; Site: right ap3 antecubital; 02:18 Follow up: IV Status: Infusion continued upon transfer ap3 Medication: 00:05 VIS not applicable for this client. jj7 Intake: 02:05 IV: 50ml; Total: 50ml. ap3 02:05 IV: 100ml; Total: 150ml. ap3 02:18 IV: 1000ml; Total: 1150ml. ap3 Outcome: 01:38 ER care complete, transfer ordered by . sp3 02:17 Transferred by ground EMS to [facility], ap3 02:17 Condition: good 02:17 Discharge instructions given to patient, Instructed on the need for transfer, 02:17 No charge visit due to 02:19 Patient left the ED. ap3 Signatures: Dispatcher [employer] EDLatrice Rolon RN RN ap3 Malia Tay RN RN lg3 Catrina Angeles MD MD sp3 Shaggy Craig RN RN jj7 Madison Robert RN RN cm10 Mine Brown 2 Nery Burris [facility] Corrections: (The following items were deleted from the chart) 02:27 02:23 contacted catherine with [facility] \T\[id number]. Phone was transferred to Dr. Angeles. Pt accepted [facility]
[2023-04-03] MEDS ORDERED: Magnesium Sulfate 2gm IVPB 6 G/150 ML BAG IV ONE (01:44)
[2023-04-03] MEDS ORDERED: MAGNESIUM SULFATE 1 gm IVPB 0 GM/0 ML BAG IV ONE (01:54)
--- NOTE | 2023-04-03 14:31 | RAD REPORT ---
EXAM DESCRIPTION: US - OB Limited - 04/03/2023 1:03 am CLINICAL HISTORY: ABD CRAMPING, TECHNIQUE: Real-time limited ultrasound of the maternal uterus with image documentation. COMPARISON: No relevant prior studies available. FINDINGS: Fetus: Single intrauterine gestation. FL: 6.66 cm, 34 weeks 2 days. Position: Cephalic presentation. Heart rate: cardiac activity measures 152 BPM. Biometrics: Four-chamber heart, stomach, kidneys and visualized. Placenta: The placenta is anterior in location. No previa. Cervix: The cervix measures 3.8 cm in length. IMPRESSION: 1. Single live intrauterine gestation. No focal complication. 2. Estimated gestational age by ultrasound is 34 weeks 2 days. 3. Estimated due date by ultrasound is 05/13/2023. Electronically signed by: Vero Alexander MD 04/03/2023 01:33 AM VICE PRESIDENT OF SALES Due to temporary technical issues with the PACS/Fluency reporting system, reports are being signed by the in house radiologists without review as a courtesy to insure prompt reporting. The interpreting radiologist is fully responsible for the content
[2023-04-03 19:02] VITALS: BP 116/78; TEMP 98.2; O2SAT 100
--- NOTE | 2023-04-06 13:45 | EKG ---
Test Date: 2023-04-03 Test Time: 01:11:12 Cloth Folder Machine: ENRIQUE MEASUREMENT RESULTS: Intervals: Rate: 84 OK: 166 QRSD: 72 QT: 356 QTc: 420 Fritch: P: 119 OK: 166 QRS: 98 T: 147 INTERPRETIVE STATEMENTS: Suspect arm lead reversal, interpretation assumes no reversal Normal sinus rhythm Rightward axis Nonspecific T wave abnormality Abnormal ECG No previous ECG available for comparison Electronically Signed On 04-06-23 13:35:50 EMBOSSER OPERATOR by Christian Sosa
== END 2023-04-03 02:19 | disposition short-term general hospital (02) ==
LOC: ER 23:44
DX: O11.3 Pre-existing hypertension with pre-eclampsia, third trimester (principal); O99.891 Other specified diseases and conditions complicating pregnancy; D89.89 Other specified disorders involving the immune mechanism, not elsewhere classified; Z3A.35 35 weeks gestation of pregnancy
CPT/HCPCS: 76815; 93005; 96365

== ENCOUNTER 2024-05-10 06:16 | Emergency (ER) | payer SELFPAY ==
--- NOTE | 2024-05-10 06:46 | ER ---
Nurse's Notes [facility] Name: Tanika Lawrence Age: 23 yrs Sex: Female : 2000 Arrival Date: 05/10/2024 Time: 06:16 Bed 1 [facility] MD: Diagnosis: Presentation: 05/10 06:21 Note pt called from lobby. no response. lg3 06:45 Note pt called from lobby no response. provider notified. lg3 ED Course: 06:18 Patient arrived in ED. jj6 Administered Medications: No medications were administered Outcome: 06:46 Patient left the ED. lg3 Signatures: Malia Tay RN RN lg3 Katey Smithj6
== END 2024-05-10 06:46 | disposition left against medical advice (07) ==
LOC: ER 06:16
DX: Z02.9 Encounter for administrative examinations, unspecified (principal)